=== PATIENT | male | born 1965 | race Caucasian/White ===

== ENCOUNTER 2016-09-28 12:12 | Emergency (ER) | payer OTHER ==
[~2016-09-28] VITALS: Ht 180.3 cm; Wt 63.7 kg
[~2016-09-28 12:12] MED LIST: ARIP441S IM; FAMO40TA4 PO; IRON1CAP17 PO; MUPI15CR TP; NAPR500T3 PO; ONDA4TAB7 PO; PALI78DI IM; PALI9TAB PO; PANT40TA3 PO; POLY17PO5 PO; PRED20TA PO; abilify IJ
[2016-09-28 12:15] VITALS: BP 127/74
[2016-09-28 12:47] LABS: BASO % 1 % (0-3); EOS # 0.2 x10^3/uL (0.0-0.7); EOS % 3 % (0-3); HEMATOCRIT 35.1 % (39.0-53.0); HEMOGLOBIN 9.6 g/dL (13.0-17.5); LYMPH % 18 % (24-48); MEAN CORPUSCULAR HEMOGLOBIN 17 pg (25-35); MEAN CORPUSCULAR HGB CONC 27 g/dL (31-37); MEAN CORPUSCULAR VOLUME 62 fL (79-100); MONO # 0.3 x10^3/uL (0.0-1.1); MONO % 6 % (0-9); NEUT # 4.3 x10^3uL (1.8-7.7); NEUT % 73 % (31-73); PLATELET COUNT 388 x10^3/uL (140-400); RED BLOOD COUNT 5.63 x10^6/uL (4.30-5.70); RED CELL DISTRIBUTION WIDTH 19.6 % (11.5-14.5); WHITE BLOOD COUNT 5.8 x10^3/uL (4.0-11.0)
[2016-09-28 13:24] LABS: PLT ESTIMATE ADEQUATE (ADEQUATE)
[2016-09-28 13:32] LABS: ANISOCYTOSIS MOD; MICROCYTOSIS SLIGHT; POIKILOCYTOSIS SLIGHT
[2016-09-28 13:33] LABS: OVALOCYTES FEW
--- NOTE | 2016-09-28 13:35 | ED.ADGEN ---
Past History Past Medical History: Anxiety, Constipation, Schizophrenia, Other Past Surgical History: Tonsillectomy, Other Additional Past Surgical Histo: duodenal surg Smoking: Non-smoker Alcohol Use: None Drug Use: None Adult General HPI HPI Patient is a 51-year-old male presents emergency department after waking up with blood in his mouth this morning. This was more than 4 hours ago. He has had no repeat bleeding. Patient does not recall coughing, vomiting, or having a bloody nose. 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 Denies any chest pain or dyspnea. Review of Systems Review of Systems Constitutional: Denies fever or chills [] Eyes: Denies change in visual acuity, redness, or eye pain [] HENT: Denies nasal congestion or sore throat [] Respiratory: Denies cough or shortness of breath [] Cardiovascular: No additional information not addressed in HPI [] GI: Denies abdominal pain, nausea, vomiting, bloody stools or diarrhea [] : Denies dysuria or hematuria [] Musculoskeletal: Denies back pain or joint pain [] Integument: Denies rash or skin lesions [] Neurologic: Denies headache, focal weakness or sensory changes [] Endocrine: Denies polyuria or polydipsia [] Allergies Allergies Allergies Coded Allergies Type Severity Reaction Last Updated Verified aspirin Allergy Intermediate bleeding 08/11/16 Yes Physical Exam Physical Exam Constitutional: Well developed, well nourished, no acute distress, non-toxic appearance. [] HENT: Normocephalic, atraumatic, bilateral external ears normal, oropharynx moist, no oral exudates, nose normal. [] Eyes: PERRLA, EOMI, conjunctiva normal, no discharge. [] Neck: Normal range of motion, no tenderness, supple, no stridor. [] Cardiovascular:Heart rate regular rhythm, no murmur [] Lungs & Thorax: Bilateral breath sounds clear to auscultation [] Abdomen: Bowel sounds normal, soft, no tenderness, no masses, no pulsatile masses. [] Skin: Warm, dry, no erythema, no rash. [] Back: No tenderness, no CVA tenderness. [] Extremities: No tenderness, no cyanosis, no clubbing, ROM intact, no edema. [] Neurologic: Alert and oriented X 3, normal motor function, normal sensory function, no focal deficits noted. [] Psychologic: Affect normal, judgement normal, mood normal. [] Current Patient Data Vital Signs Vital Signs Date Time Temp Pulse Resp B/P Pulse Ox O2 Delivery O2 Flow Rate FiO2 09/28/16 12:15 98.2 76 18 99 Room Air Lab Results Laboratory Tests Test 09/28/16 12:28 White Blood Count 5.8x10^3/uL (4.0-11.0) Red Blood Count 5.63x10^6/uL (4.30-5.70) Hemoglobin 9.6g/dL (13.0-17.5) L Hematocrit 35.1% (39.0-53.0) L Mean Corpuscular Volume 62fL (79-100) L Mean Corpuscular Hemoglobin 17pg (25-35) L Mean Corpuscular Hemoglobin Concent 27g/dL (31-37) L Red Cell Distribution Width 19.6% (11.5-14.5) H Platelet Count 388x10^3/uL (140-400) Neutrophils (%) (Auto) 73% (31-73) Lymphocytes (%) (Auto) 18% (24-48) L Monocytes (%) (Auto) 6% (0-9) Eosinophils (%) (Auto) 3% (0-3) Basophils (%) (Auto) 1% (0-3) Neutrophils # (Auto) 4.3x10^3uL (1.8-7.7) Lymphocytes # (Auto) 1.0x10^3/uL (1.0-4.8) Monocytes # (Auto) 0.3x10^3/uL (0.0-1.1) Eosinophils # (Auto) 0.2x10^3/uL (0.0-0.7) Basophils # (Auto) 0.0x10^3/uL (0.0-0.2) Platelet Estimate Adequate (ADEQUATE) EKG EKG [] Radiology/Procedures Radiology/Procedures [] Course & Med Decision Making Course & Med Decision Making Pertinent Labs and Imaging studies reviewed. (See chart for details) Patient shows no signs of bleeding here. His hemoglobin is stable. Patient will be discharged home with supportive care and follow-up instructions. [] Final Impression Final Impression Hematemesis [] Problems: Dragon Disclaimer Dragon Disclaimer This electronic medical record was generated, in whole or in part, using a voice recognition dictation system. RUIZ MCCANN MD Sep 28, 2016 13:35
== END 2016-09-28 13:25 | disposition home or self-care (01) ==
LOC: ER 12:12
DX: K92.0 Hematemesis (principal); I78.0 Hereditary hemorrhagic telangiectasia; F20.9 Schizophrenia, unspecified; F41.9 Anxiety disorder, unspecified; Z88.6 Allergy status to analgesic agent
CPT/HCPCS: 36415; 85008; 85027; 99283

== ENCOUNTER 2016-10-30 11:06 | Emergency (ER) | payer OTHER ==
[~2016-10-30] VITALS: Ht 180.3 cm; Wt 63.7 kg
--- NOTE | 2016-10-30 11:40 | PHYS DOC ---
Past History Past Medical History: Anxiety, Constipation, Schizophrenia, Other Past Surgical History: Tonsillectomy, Other Additional Past Surgical Histo: duodenal surg Smoking: Non-smoker Alcohol Use: None Drug Use: None Adult General Chief Complaint Chief Complaint: LOWER EXT PAIN HPI HPI 51-year-old gentleman presenting to the emergency department with pain in his inner right thigh. He describes the pain is sharp moderate nonradiating and without alleviating factors. He reports a history of a "DVT". However upon the patient's medical chart he had a superficial saphenous vein thrombosis which is not a deep vein thrombosis. Ultrasound was performed in 2013. 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 He otherwise denies any symptoms. Onset 24 hours. Location right leg. Duration constant. Review of systems is negative for chest pain nausea vomiting fevers chills or abdominal pain. All other review of systems is negative unless otherwise noted in history of present illness. Review of Systems Review of Systems SEE ABOVE. Allergies Allergies Allergies Coded Allergies Type Severity Reaction Last Updated Verified aspirin Allergy Intermediate bleeding 10/30/16 Yes Physical Exam Physical Exam Constitutional: Well developed, well nourished, no acute distress, non-toxic appearance. HENT: Normocephalic, atraumatic, bilateral external ears normal, oropharynx moist, no oral exudates, nose normal. [] Eyes: PERRLA, EOMI, conjunctiva normal, no discharge. Neck: Normal range of motion, no tenderness, supple, no stridor. Cardiovascular:Heart rate regular rhythm, no murmur Lungs & Thorax: Bilateral breath sounds clear to auscultation [] Abdomen: Bowel sounds normal, soft, no tenderness, no masses, no pulsatile masses. Skin: Warm, dry, no erythema, no rash. [] Back: No tenderness, no CVA tenderness. Extremities: The patient's right lower extremity is warm and well perfused with a palpable pulse and 2 second cap refill. Normal neurovascular status present. The patient does have tenderness along the venous system. There is no swelling erythema of the extremity. It is similar in size to the other extremity. The remainder of the extremities are nontender, atraumatic and with normal range of motion. Neurologic: Alert and oriented X 3, normal motor function, normal sensory function, no focal deficits noted. [] Psychologic: Affect normal, judgement normal, mood normal. Current Patient Data Vital Signs Vital Signs Date Time Temp Pulse Resp B/P Pulse Ox O2 Delivery O2 Flow Rate FiO2 10/30/16 11:21 97.6 86 18 100 Room Air EKG EKG [] Radiology/Procedures Radiology/Procedures [] Course & Med Decision Making Course & Med Decision Making Pertinent Labs and Imaging studies reviewed. (See chart for details) [] 51-year-old male presenting to the emergency department with right-sided leg pain. Vital signs unremarkable. Tenderness of the venous system so ultrasound was obtained. Negative for deep vein thrombosis. Otherwise the patient is clinically stable. The patient was then discharged home in stable condition to follow up with their primary care physician over the next 2-3 days. They were to return if there symptoms worsened or if they were concerned for any reason. [id number] discharge instructions and return precautions were given. Patient' s questions were answered to their satisfaction. Patient is comfortable plan. Dragon Disclaimer Dragon Disclaimer This chart was dictated in whole or in part using Voice Recognition software in a busy, high-work load, and often noisy Emergency Department environment. It may contain unintended and wholly unrecognized errors or omissions. Departure Departure: Impression: Primary Impression: Right leg pain Disposition: 01 HOME, SELF-CARE Condition: STABLE Referrals: LEEANN SAHA MD (PCP) Additional Instructions: Thank you for allowing us to participate in your care today. Followup with your primary care physician in 3 days if your symptoms do not improve. If you do not have a primary care provider you can ask for a list of our primary care providers. Return to the emergency department you have any new or concerning findings. This should be evaluated by the primary care physician and any necessary consulting services for continued management within a few days after discharge. Return to emergency room if you have any new or concerning symptoms including but not limited to fever, chills, nausea, vomiting, intractable pain, any new rashes, chest pain, shortness of air, uncontrolled bleeding, difficulty breathing, and/or vision loss. You may have been prescribed medication that can change in your level of thinking and ability to operate machinery. These medications include hydrocodone and Ativan. Also, Benadryl has been known to do this as well. Be sure to check with your pharmacist and ask if the medications you've prescribed can affect your level of consciousness. I recommend not operating heavy machinery or driving while on medication such as these. ERIS CABRERA MD Oct 30, 2016 11:40
--- NOTE | 2016-10-30 12:52 | RAD ---
Right lower extremity venous Doppler ultrasound History: Right lower extremity pain, previous history of deep venous thrombosis. Comparison: Bilateral lower extremity venous Doppler 04/15/2012. Procedure: Color Doppler, spectral Doppler, and grayscale images are obtained with and without compression in the area of the common femoral vein, superficial femoral vein - femoral vein junction, main femoral vein (superficial femoral vein) and popliteal vein. Veins of the proximal calf are also imaged. Findings: There is normal duplex flow, color flow and compressibility of all visualized vein segments. No evidence of deep venous thrombosis is present. Impression: No evidence of right lower extremity deep venous thrombosis.
== END 2016-10-30 13:14 | disposition home or self-care (01) ==
LOC: ER 11:06
DX: M79.651 Pain in right thigh (principal); M79.604 Pain in right leg; F20.9 Schizophrenia, unspecified; Z86.718 Personal history of other venous thrombosis and embolism; Z88.6 Allergy status to analgesic agent
CPT/HCPCS: 93971; 99284-25

== ENCOUNTER 2016-11-06 16:22 | Emergency (ER) | payer OTHER ==
[~2016-11-06] VITALS: Ht 180.3 cm; Wt 63.7 kg
--- NOTE | 2016-11-06 16:38 | ED.ADGEN ---
Past History Past Medical History: Schizophrenia, Other Past Surgical History: Tonsillectomy Additional Past Surgical Histo: duodenal surg Smoking: Non-smoker Alcohol Use: None Drug Use: None Adult General Chief Complaint Chief Complaint Abdominal pain HPI HPI Patient is a 51 year old male who presents with epigastric/chest pain. He states he was eating a ham sandwich at 3:00, felt like his food got stuck and he started having pain. States his pain did resolve but now has returned. He denies any shortness of breath fevers chills nausea or vomiting associated with this. He states he got distracted when he was eating his food because the voices in his head. He states he had surgery on his stomach 5-7 years ago. Review of Systems Review of Systems Constitutional: Denies fever or chills [] Eyes: Denies change in visual acuity, redness, or eye pain [] HENT: Denies nasal congestion or sore throat [] Respiratory: Denies cough or shortness of breath [] Cardiovascular: No additional information not addressed in HPI [] GI: Denies nausea, vomiting, bloody stools or diarrhea , positive for abdominal pain, : Denies dysuria or hematuria [] Musculoskeletal: Denies back pain or joint pain [] Integument: Denies rash or skin lesions [] Neurologic: Denies headache, focal weakness or sensory changes [] Endocrine: Denies polyuria or polydipsia [] Current Medications Current Medications Current Medications Medications (Trade) Dose Ordered Sig/Tomasz Start Time Stop Time Status Last Admin Dose Admin Multi-Ingredient Mouthwash/Gargle (Gi Cocktail) 20 ml 1X ONCE 11/06/16 16:45 11/06/16 16:46 DC 11/06/16 16:43 20 ML Allergies Allergies Allergies Coded Allergies Type Severity Reaction Last Updated Verified aspirin Allergy Intermediate bleeding 10/30/16 Yes Physical Exam Physical Exam Constitutional: Well developed, well nourished, no acute distress, non-toxic appearance. [] HENT: Normocephalic, atraumatic, bilateral external ears normal, oropharynx moist, no oral exudates, nose normal. [] Eyes: PERRLA, EOMI, conjunctiva normal, no discharge. [] Neck: Normal range of motion, no tenderness, supple, no stridor. [] Cardiovascular:Heart rate regular rhythm, no murmur [] Lungs & Thorax: Bilateral breath sounds clear to auscultation [] Abdomen: High-pitched bowel sounds, soft, mild tender to palpation epigastric area, no rebound or guarding, no masses, no pulsatile masses. [] Skin: Warm, dry, no erythema, no rash. [] Back: No tenderness, no CVA tenderness. [] Extremities: No tenderness, no cyanosis, no clubbing, ROM intact, no edema. [] Neurologic: Alert and oriented X 3, normal motor function, normal sensory function, no focal deficits noted. [] Psychologic: Affect normal, judgement normal, mood normal. [] Current Patient Data Vital Signs Vital Signs Date Time Temp Pulse Resp B/P Pulse Ox O2 Delivery O2 Flow Rate FiO2 11/06/16 16:31 97.9 83 20 95 Room Air EKG EKG EKG shows normal sinus rhythm with rate of [address] elevations or T -wave inversions, normal axis, QTC 386 ms, as interpreted by me. Radiology/Procedures Radiology/[place] [address] IMAGING REPORT Signed PATIENT: BOLIVAR JEFF ACCOUNT: [id number] : 1965 LOCATION: ER AGE: 51 SEX: M EXAM STATUS: REG ER ORD. PHYSICIAN: MARY HUDSON MD REASON: abd pain PROCEDURE: ACUTE ABDOMEN SERIES Acute abdomen series with chest, 3 views, 11/06/2016: History: Abdominal pain There is a moderate amount gas in large and small bowel. The gas extends down to the left level the rectum without evidence of obstruction. There is also retained food and fluid in the stomach. The findings may reflect a mild ileus. No free air is seen in the abdomen. There is no evidence of organomegaly. Lower pelvic calcifications are probably phleboliths. The heart size and pulmonary vascularity are normal. No pulmonary infiltrates are seen. A small right basilar pulmonary nodule is unchanged since 02/20/2016. There is no evidence of pleural fluid. IMPRESSION: 1. Probable mild ileus. 2. 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 DICTATED AND SIGNED BY: CHANDANA SUN MD DATE: 11/06/16 [id number] CC: MARY HUDSON MD; LEEANN SAHA MD ~ Course & Med Decision Making Course & Med Decision Making Pertinent Labs and Imaging studies reviewed. (See chart for details) Acute abdominal series suggests a probable mild ileus. He does have high- pitched bowel sounds in still complaining about discomfort. CT abdomen pelvis has been ordered, IV fluids patient is being checked out to Dr. Gupta for final disposition. Final Impression Final Impression Abdominal pain Problems: Dragon Disclaimer Dragon Disclaimer This electronic medical record was generated, in whole or in part, using a voice recognition dictation system. MARY HUDSON MD November 06, 2016 16:38
[2016-11-06] MEDS ORDERED: LIDO:MAALOX 1:1 20 ML SINGLE DOSE PO ONE (16:45)
--- NOTE | 2016-11-06 17:01 | RAD ---
Acute abdomen series with chest, 3 views, 11/06/2016: History: Abdominal pain There is a moderate amount gas in large and small bowel. The gas extends down to the left level the rectum without evidence of obstruction. There is also retained food and fluid in the stomach. The findings may reflect a mild ileus. No free air is seen in the abdomen. There is no evidence of organomegaly. Lower pelvic calcifications are probably phleboliths. The heart size and pulmonary vascularity are normal. No pulmonary infiltrates are seen. A small right basilar pulmonary nodule is unchanged since 02/20/2016. There is no evidence of pleural fluid. IMPRESSION: 1. Probable mild ileus. 2. 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
[2016-11-06] MEDS ORDERED: IOHEXOL 240 MG/ML 50ML VIAL. ONE (17:19)
--- NOTE | 2016-11-06 17:21 | EKG ---
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
[2016-11-06] MEDS ORDERED: IV NORMAL SALINE 1,000ML 1,000 ML IV ONE (17:30)
[2016-11-06] MEDS ORDERED: IOHEXOL 300 MG/ML 75 ML VIAL. IV ONE (17:45)
[2016-11-06 17:57] LABS: BASO # 0.1 x10^3/uL (0.0-0.2); BASO % 1 % (0-3); EOS # 0.1 x10^3/uL (0.0-0.7); EOS % 1 % (0-3); HEMATOCRIT 33.2 % (39.0-53.0); HEMOGLOBIN 9.4 g/dL (13.0-17.5); LYMPH # 1.1 x10^3/uL (1.0-4.8); LYMPH % 17 % (24-48); MEAN CORPUSCULAR HEMOGLOBIN 17 pg (25-35); MEAN CORPUSCULAR HGB CONC 28 g/dL (31-37); MEAN CORPUSCULAR VOLUME 60 fL (79-100); MONO # 0.3 x10^3/uL (0.0-1.1); MONO % 5 % (0-9); NEUT # 4.6 x10^3uL (1.8-7.7); NEUT % 75 % (31-73); PLATELET COUNT 444 x10^3/uL (140-400); RED BLOOD COUNT 5.53 x10^6/uL (4.30-5.70); RED CELL DISTRIBUTION WIDTH 19.9 % (11.5-14.5); WHITE BLOOD COUNT 6.1 x10^3/uL (4.0-11.0)
[2016-11-06 18:01] VITALS: BP 125/73
[2016-11-06 18:14] LABS: ALBUMIN 4.3 g/dL (3.4-5.0); CREATININE 1.2 mg/dL (0.7-1.3); DIRECT BILIRUBIN 0.2 mg/dL (0.0-0.2); GFR 64.4; POTASSIUM 4.1 mmol/L (3.5-5.1); TOTAL BILIRUBIN 0.5 mg/dL (0.2-1.0)
--- NOTE | 2016-11-06 19:23 | RAD ---
PQRS STATEMENT One or more of the following individualized dose reduction techniques were utilized for this study: 1.Automated exposure control. 2.Adjustment of the mA and/orkVaccording to patient size. 3.Use of iterative reconstruction technique. Indication:EPIGASTRIC PAIN, DISTENTION, H/O: DUODENAL SX, HERNIA REPAIR
ORAL AND IV CONTRAST, 75 ML OMNI 300, prior ct abd/pel sent Reason: abdominal pain / Spl. Instructions: / History: Technique: multiple contiguous axial images were obtained through the abdomen and pelvis after intravenous administration of iodinated contrast. Coronal and sagittal reformations were created. Findings: There is a moderate amount of gastric contents. Again noted is a 1.1 centimeter nodule in the right lung base which was seen on a previous CT from January 06, 2016. The liver is normal in size. There is a nonenhancing presumed cyst in the inferior portion of the right lobe. This has increased in size when compared to the exam from 11/19/2014 now measuring 1 centimeter compared with 9 millimeters. This is still favored to be benign. The gallbladder is nondistended. The pancreas is unremarkable. The spleen and adrenal glands are within normal limits. The kidneys demonstrate no hydronephrosis or mass. The abdominal aorta is normal in caliber. There is no ascites or adenopathy. The appendix is normal. The bowel loops are normal in caliber. The urinary bladder is within normal limits. No destructive osseous lesion is identified. There is enlargement of the seminal vesicles. Impression: No ascites or inflammatory mass. Moderate amount of retained gastric contents. Electronically signed by: Maximilian Patel (November 06, 2016 19:22:22)
[2016-11-06 19:36] LABS: PLT ESTIMATE INCREASED (ADEQUATE)
[2016-11-06 19:37] LABS: ANISOCYTOSIS MOD; HYPOCHROMIA MOD; MICROCYTOSIS SLIGHT; OVALOCYTES MOD; POLYCHROMASIA SLIGHT
[2016-11-06] MEDS ORDERED: SIME80TA14 PO (19:39)
== END 2016-11-06 19:55 | disposition home or self-care (01) ==
LOC: ER 16:22
DX: R10.13 Epigastric pain (principal); F20.9 Schizophrenia, unspecified; Z88.6 Allergy status to analgesic agent
CPT/HCPCS: 36415; 74022; 74177; 80048; 80076; 82553; 83690; 84484; 85008; 85027; 93005; 96360; 99285; Q9967; J7030

== ENCOUNTER 2016-12-11 16:21 | Emergency (ER) | payer OTHER ==
[~2016-12-11] VITALS: Ht 180.3 cm; Wt 63.7 kg
[~2016-12-11 16:21] MED LIST changes: +SIME80TA14 PO
[2016-12-11] MEDS ORDERED: IV NORMAL SALINE 1,000ML 1,000 ML IV ONE (16:45)
[2016-12-11 17:56] LABS: ALBUMIN 4.7 g/dL (3.4-5.0); ALBUMIN/GLOBULIN RATIO 1.3 (1.0-1.7); CALCIUM 8.9 mg/dL (8.5-10.1); CREATININE 1.2 mg/dL (0.7-1.3); GFR 64.4; POTASSIUM 4.8 mmol/L (3.5-5.1); TOTAL BILIRUBIN 1.1 mg/dL (0.2-1.0); TOTAL PROTEIN 8.3 g/dL (6.4-8.2)
--- NOTE | 2016-12-11 18:00 | PHYS DOC ---
Past History Past Medical History: Schizophrenia, Other Past Surgical History: Tonsillectomy Additional Past Surgical Histo: duodenal surg Smoking: Non-smoker Alcohol Use: None Drug Use: None Adult General Chief Complaint Chief Complaint: DEHYDRATION HPI HPI This 51-year-old man with a history of schizophrenia presents with a history of having been hearing voices saying that he should not eat and they've been telling him not to eat for weeks. The patient did have it did eat and had juice when he got here. He really denies any other problem at the present time he was sent [facility] for evaluation and make sure he was medically stable Review of Systems Review of Systems Constitutional: Denies fever or chills [] Eyes: Denies change in visual acuity, redness, or eye pain [] HENT: Denies nasal congestion or sore throat [] Respiratory: Denies cough or shortness of breath [] Cardiovascular: No additional information not addressed in HPI [] GI: Denies abdominal pain, nausea, vomiting, bloody stools or diarrhea [] : Denies dysuria or hematuria [] Musculoskeletal: Denies back pain or joint pain [] Integument: Denies rash or skin lesions [] Neurologic: Denies headache, focal weakness or sensory changes [] Endocrine: Denies polyuria or polydipsia [] Current Medications Current Medications Current Medications Medications (Trade) Dose Ordered Sig/Tomasz Start Time Stop Time Status Last Admin Dose Admin Sodium Chloride 1,000 ml @ 1,000 mls/hr 1X ONCE 12/11/16 16:45 12/11/16 17:44 DC 12/11/16 16:45 1,000 MLS/HR Allergies Allergies Allergies Coded Allergies Type Severity Reaction Last Updated Verified aspirin Allergy Intermediate bleeding 10/30/16 Yes Physical Exam Physical Exam Constitutional: Well developed, well nourished, no acute distress, non-toxic appearance. [] HENT: Normocephalic, atraumatic, bilateral external ears normal, oropharynx moist, no oral exudates, nose normal. Mucous membranes are moist Eyes: PERRLA, EOMI, conjunctiva normal, no discharge. [] Neck: Normal range of motion, no tenderness, supple, no stridor. [] Cardiovascular:Heart rate regular rhythm, no murmur [] Lungs & Thorax: Bilateral breath sounds clear to auscultation [] Abdomen: Bowel sounds normal, soft, no tenderness, no masses, no pulsatile masses. [] Skin: Warm, dry, no erythema, no rash. [] Back: No tenderness, no CVA tenderness. [] Extremities: No tenderness, no cyanosis, no clubbing, ROM intact, no edema. [] Neurologic: Alert and oriented X 3, normal motor function, normal sensory function, no focal deficits noted. [] Psychologic: Affect normal, judgement normal, mood normal. [] Current Patient Data Vital Signs Vital Signs Date Time Temp Pulse Resp B/P (MAP) Pulse Ox O2 Delivery O2 Flow Rate FiO2 12/11/16 17:37 98.2 88 126/65 (85) 100 12/11/16 16:34 20 Lab Results Laboratory Tests Test 12/11/16 17:23 Sodium Level 134 mmol/L (136-145) L Potassium Level 4.8 mmol/L (3.5-5.1) Chloride Level 97 mmol/L (98-107) L Carbon Dioxide Level 22 mmol/L (21-32) Anion Gap 15 (6-14) H Blood Urea Nitrogen 19 mg/dL (8-26) Creatinine 1.2 mg/dL (0.7-1.3) Estimated GFR (Cockcroft-Gault) 64.4 BUN/Creatinine Ratio 16 (6-20) Glucose Level 62 mg/dL (70-99) L Calcium Level 8.9 mg/dL (8.5-10.1) Total Bilirubin 1.1 mg/dL (0.2-1.0) H Aspartate Amino Transferase (AST) 18 U/L (15-37) Alanine Aminotransferase (ALT) 17 U/L (16-63) Alkaline Phosphatase 127 U/L (46-116) H Total Protein 8.3 g/dL (6.4-8.2) H Albumin 4.7 g/dL (3.4-5.0) Albumin/Globulin Ratio 1.3 (1.0-1.7) EKG EKG [] Radiology/Procedures Radiology/Procedures [] Impressions: Schizophrenia Course & Med Decision Making Course & Med Decision Making Pertinent Labs and Imaging studies reviewed. (See chart for details) Reviewed labs that returned so far and reviewed Dr. Raymundo's note patient is well hydrated by physical exam findings and vital signs as well as the CMP is it 's been returned. I spoke at length with the critical access guidance access counselor after medical clearance of this. The patient apparently this ends concert seen this patient earlier today and recommended inpatient evaluation for his acute schizophrenic break. He is comfortable and stable patient is compliant with requests an evaluation. Consume food and drink while here in the emergency department and is awaiting bed placement. Time is 7:26 PM [] Dr. GOMEZ accepted patient approximately 9:43 PM [facility] to their psychiatric floor for inpatient management of his acute psychosis secondary to schizophrenia. Impression schizophrenia with psychotic break disposition transfer to psychiatric facility that can aid him and treatment of his issue. Dragon Disclaimer Dragon Disclaimer This chart was dictated in whole or in part using Voice Recognition software in a busy, high-work load, and often noisy Emergency Department environment. It may contain unintended and wholly unrecognized errors or omissions. Departure Departure: Impression: Primary Impression: Auditory hallucinations Additional Impression: Schizophrenia Disposition: 65 XFER TO PSYCH HOSP/UNIT Condition: GUARDED Referrals: LEEANN SAHA MD (PCP) Problem Qualifiers KINSEY JANE MD Dec 11, 2016 18:00 BEKAH CHAPA MD Dec 11, 2016 19:26
[2016-12-11 19:24] LABS: BILIRUBIN,URINE NEG (NEG); CLARITY,URINE CLEAR; COLOR,URINE YELLOW; GLUCOSE,URINE NEG (NEG); NITRITE,URINE NEG (NEG); RBC,URINE OCC /HPF (0-2); UROBILINOGEN,URINE 1 mg/dL (0.2 mg/dL)
[2016-12-11 19:25] LABS: BACTERIA,URINE 0 /HPF (0-FEW); HYALINE CASTS, URINE FEW /HPF; SQUAMOUS EPITHELIAL CELL,UR FEW /LPF; WBC,URINE OCC /HPF (0-4)
[2016-12-11 19:28] LABS: HEMATOCRIT 34.3 % (39.0-53.0); HEMOGLOBIN 9.9 g/dL (13.0-17.5); MEAN CORPUSCULAR HEMOGLOBIN 17 pg (25-35); MEAN CORPUSCULAR HGB CONC 29 g/dL (31-37); MEAN CORPUSCULAR VOLUME 59 fL (79-100); PLATELET COUNT 460 x10^3/uL (140-400); RED BLOOD COUNT 5.85 x10^6/uL (4.30-5.70); RED CELL DISTRIBUTION WIDTH 19.7 % (11.5-14.5); WHITE BLOOD COUNT 5.4 x10^3/uL (4.0-11.0)
[2016-12-11 19:38] LABS: % BANDS 1 % (0-9); % LYMPHS 12 % (24-48); % MONOS 2 % (0-10); % SEGS 85 % (35-66)
[2016-12-11 19:39] LABS: HYPOCHROMIA MOD; OVALOCYTES FEW; PLT ESTIMATE INCREASED (ADEQUATE)
[2016-12-11 19:40] LABS: ANISOCYTOSIS SLIGHT; MICROCYTOSIS MOD
--- NOTE | 2016-12-11 20:34 | ACF ---
Admission Criteria Forms PSYCHIATRIC DISORDERS Clinical Indications for Inpatient Care (Place 'X' for any and all applicable criteria): Ongoing inpatient care may be needed for ANY ONE of the following(1)(2)(3)(4)(6) (7)(8): [ ]I. Danger to self or others not manageable at lower level of care. [ ]II. Grave disability (eg, inability to perform self care necessary at lower level of care) [ ]III. Agitation or inappropriate behavior interfering with care for primary condition (eg, attempting to discontinue lines or drains prematurely, unable to cooperate with respiratory care) [X]IV. Severe disability or disorder indicated by ALL of the following: [X]a) Severe behavioral health disorder-related symptoms or condition indicated by ANY ONE of the following: [X]i) Severe problem with cognition, memory, judgment, or impulse control [ ]ii) Severe clinical manifestations (eg, hallucinations, delusions, other acute psychotic symptoms, avila, extreme agitation or anxiety) [ ]b) Patient management at lower level of care is not feasible until acute intervention or modification is initiated. Extended stay beyond goal length of stay for the primary condition may be indicated when ANY ONE of the following is present: (1)(2)(3)(4): [ ]a) Patient is a danger to self or others and not manageable at lower level of care. [ ]b) Behavior crisis management, including physical or chemical restraints, is required and is not available at a lower level of care. [ ]c) Behavioral symptoms (e.g., agitation, somnolence, inappropriate behavior) are present, and are not manageable at a lower level of care. [ ]d) Patient cannot understand follow-up treatment and crisis plan. [ ]e) Provider and supports are not sufficiently available at lower level of care. [ ]f) Patient cannot participate (e.g., verify absence of plan for harm) and is in needed of monitoring. The original [facility] [employer] content created by [facility] has been revised. The portions of the content which have been revised are identified through the use of italic text or in bold, and [facility] has neither reviewed nor approved the modified material. All other unmodified content is copyright [facility]. Please see references footnoted in the original [facility] edition 2016 Admission Criteria Met?: Yes BETSEY MCGARRY Dec 11, 2016 20:34
[2016-12-11 22:40] VITALS: BP 111/65
== END 2016-12-11 22:40 ==
LOC: ER 16:21
DX: R44.0 Auditory hallucinations (principal); F20.9 Schizophrenia, unspecified; Z88.6 Allergy status to analgesic agent
CPT/HCPCS: 36415; 80053; 81001; 82947; 85007; 85027; 96360; 99285-25; J7030

== ENCOUNTER → 2017-05-21 | Outpatient (CLI) | payer OTHER ==
[~2017-05-21] MED LIST changes: -NAPR500T3 PO; +NAPR500T4 PO
[2017-05-21 11:55] LABS: ALBUMIN 4.1 g/dL (3.4-5.0); ALBUMIN/GLOBULIN RATIO 1.1 (1.0-1.7); CALCIUM 8.9 mg/dL (8.5-10.1); CREATININE 1.1 mg/dL (0.7-1.3); GFR 70.9; POTASSIUM 4.1 mmol/L (3.5-5.1); TOTAL BILIRUBIN 0.6 mg/dL (0.2-1.0); TOTAL PROTEIN 7.9 g/dL (6.4-8.2)
[2017-05-21 13:01] LABS: HEMATOCRIT 31.3 % (39.0-53.0); HEMOGLOBIN 8.9 g/dL (13.0-17.5); RED BLOOD COUNT 5.34 x10^6/uL (4.30-5.70); WHITE BLOOD COUNT 4.9 x10^3/uL (4.0-11.0)
[2017-05-21 13:02] LABS: ANISOCYTOSIS MOD; BASO % 1 % (0-3); EOS # 0.1 x10^3/uL (0.0-0.7); EOS % 3 % (0-3); HYPOCHROMIA MARKED; LYMPH # 1.3 x10^3/uL (1.0-4.8); LYMPH % 27 % (24-48); MEAN CORPUSCULAR HEMOGLOBIN 17 pg (25-35); MEAN CORPUSCULAR HGB CONC 29 g/dL (31-37); MEAN CORPUSCULAR VOLUME 59 fL (79-100); MONO # 0.4 x10^3/uL (0.0-1.1); MONO % 8 % (0-9); NEUT % 61 % (31-73); PLATELET COUNT 415 x10^3/uL (140-400); PLT ESTIMATE ADEQUATE (ADEQUATE); POLYCHROMASIA SLIGHT; RED CELL DISTRIBUTION WIDTH 20.4 % (11.5-14.5)
[2017-05-21 13:03] LABS: OVALOCYTES FEW; SCHISTOCYTES FEW; TEAR DROP CELLS FEW
== END | disposition home or self-care (01) ==
LOC: LAB 10:17
PROVIDERS: ATTEND Clinical Nurse Specialist Psychiatric/Mental Health, Adult
DX: Z51.81 Encounter for therapeutic drug level monitoring (principal); Z79.899 Other long term (current) drug therapy
CPT/HCPCS: 36415; 80053; 80061; 84146; 85025

== ENCOUNTER 2017-08-14 11:10 | Inpatient (IN) | payer OTHER ==
[~2017-08-14] VITALS: Ht 177.8 cm; Wt 61.3 kg
[~2017-08-14 11:10] MED LIST changes: +NAPR-514 PO; -NAPR500T4 PO
[2017-08-14 11:46] LABS: BACTERIA,URINE 0 /HPF (0-FEW); BILIRUBIN,URINE NEG (NEG); CLARITY,URINE CLEAR; COLOR,URINE YELLOW; GLUCOSE,URINE 100 mg/dL (NEG); NITRITE,URINE NEG (NEG); RBC,URINE 0 /HPF (0-2); UROBILINOGEN,URINE 0.2 mg/dL (0.2 mg/dL); WBC,URINE RARE /HPF (0-4)
[2017-08-14 12:05] LABS: BASO % 0 % (0-3); EOS # 0.1 x10^3/uL (0.0-0.7); EOS % 2 % (0-3); HEMATOCRIT 30.1 % (39.0-53.0); HEMOGLOBIN 8.2 g/dL (13.0-17.5); LYMPH % 19 % (24-48); MEAN CORPUSCULAR HEMOGLOBIN 16 pg (25-35); MEAN CORPUSCULAR HGB CONC 27 g/dL (31-37); MEAN CORPUSCULAR VOLUME 58 fL (79-100); MONO # 0.2 x10^3/uL (0.0-1.1); MONO % 3 % (0-9); NEUT # 4.2 x10^3uL (1.8-7.7); NEUT % 76 % (31-73); PLATELET COUNT 446 x10^3/uL (140-400); RED BLOOD COUNT 5.19 x10^6/uL (4.30-5.70); RED CELL DISTRIBUTION WIDTH 21.5 % (11.5-14.5); WHITE BLOOD COUNT 5.6 x10^3/uL (4.0-11.0)
[2017-08-14 12:15] LABS: ALBUMIN 3.8 g/dL (3.4-5.0); CALCIUM 8.5 mg/dL (8.5-10.1); GFR 79.1; POTASSIUM 4.2 mmol/L (3.5-5.1); TOTAL BILIRUBIN 0.6 mg/dL (0.2-1.0); TOTAL PROTEIN 7.5 g/dL (6.4-8.2)
--- NOTE | 2017-08-14 12:22 | RAD ---
Acute abdomen series with chest, 3 views, 08/14/2017: History: Bilateral flank pain There is a moderate amount of gas in large and small bowel with mild gaseous distention of some bowel loops. No free air is present in the abdomen. There is no evidence of organomegaly. Tiny lower pelvic calcifications are probably phleboliths. The heart size is normal. A small nodule is again noted in the right lung base. 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 No acute infiltrate is seen. There is no evidence of pleural fluid. IMPRESSION: Increased gas in large and small bowel most compatible with a generalized ileus.
--- NOTE | 2017-08-14 12:27 | PHYS DOC ---
Past History Past Medical History: Anemia, Constipation, Other Past Surgical History: No Surgical History Additional Past Surgical Histo: duodenal surg Smoking: Non-smoker Alcohol Use: None Drug Use: None Adult General Chief Complaint Chief Complaint: FLANK PAIN HPI HPI Patient is a pleasant 52-year-old male with a known history of psychiatric disorder and a flat affect who presents with abdominal pain and flank pain that began yesterday. He said the pain is worse when he walks around it is generalized with no radiation to the upper back it is radiating to the lower abdomen. Described as dull and achy is uncomfortable but is able to walk without issue. He denies any nausea, vomiting, diarrhea, constipation. He is not eating anything for greater than 24 hours. Patient denies any UTI symptoms, penile discharge or other symptoms of fevers chills joint pain or rash. Patient denies any direct trauma denies taking any medications to treat his symptoms. Review of Systems Review of Systems Constitutional: Denies fever or chills [] Eyes: Denies change in visual acuity, redness, or eye pain [] HENT: Denies nasal congestion or sore throat [] Respiratory: Denies cough or shortness of breath [] Cardiovascular: No additional information not addressed in HPI [] GI: Complaining of abdominal pain with mild nausea but no vomiting diarrhea cost patient or doing issues : Denies dysuria or hematuria [] Musculoskeletal: Planes of lower back pain Integument: Denies rash or skin lesions [] Neurologic: Denies headache, focal weakness or sensory changes [] Endocrine: Denies polyuria or polydipsia [] All other systems were reviewed and found to be within normal limits, except as documented in this note. Allergies Allergies Allergies Coded Allergies Type Severity Reaction Last Updated Verified aspirin Allergy Intermediate bleeding 10/30/16 Yes Physical Exam Physical Exam Constitutional: Well developed, well nourished, no acute distress, non-toxic appearance. [] HENT: Normocephalic, atraumatic, bilateral external ears normal, oropharynx moist, no oral exudates, nose normal. [] Eyes: PERRLA, EOMI, conjunctiva normal, no discharge. [] Neck: Normal range of motion, no tenderness, supple, no stridor. [] Cardiovascular:Heart rate regular rhythm, no murmur [] Lungs & Thorax: Bilateral breath sounds clear to auscultation [] Abdomen: Bowel sounds normal, soft, no tenderness, no masses, no pulsatile masses. [] Skin: Warm, dry, no erythema, no rash. [] Back: No tenderness, no CVA tenderness. [] Extremities: No tenderness, no cyanosis, no clubbing, ROM intact, no edema. [] Neurologic: Alert and oriented X 3, normal motor function, normal sensory function, no focal deficits noted. [] Psychologic: Affect normal, judgement normal, mood normal. [] Current Patient Data Vital Signs Vital Signs Date Time Temp Pulse Resp B/P (MAP) Pulse Ox O2 Delivery O2 Flow Rate FiO2 08/14/17 11:15 97.5 62 20 100 Room Air Lab Results Laboratory Tests Test 08/14/17 11:30 08/14/17 11:49 Urine Collection Type Unknown Urine Color Yellow Urine Clarity Clear Urine pH 5.5 Urine Specific Hooper 1.025 Urine Protein Neg (NEG-TRACE) Urine Glucose (UA) 100 mg/dL (NEG) Urine Ketones (Stick) Neg mg/dL (NEG) Urine Blood Neg (NEG) Urine Nitrite Neg (NEG) Urine Bilirubin Neg (NEG) Urine Urobilinogen Dipstick 0.2 mg/dL (0.2 mg/dL) Urine Leukocyte Esterase Neg (NEG) Urine RBC 0 /HPF (0-2) Urine WBC Rare /HPF (0-4) Urine Squamous Epithelial Cells None /LPF Urine Bacteria 0 /HPF (0-FEW) Urine Mucus Marked /LPF White Blood Count 5.6 x10^3/uL (4.0-11.0) Red Blood Count 5.19 x10^6/uL (4.30-5.70) Hemoglobin 8.2 g/dL (13.0-17.5) L Hematocrit 30.1 % (39.0-53.0) L Mean Corpuscular Volume 58 fL (79-100) L Mean Corpuscular Hemoglobin 16 pg (25-35) L Mean Corpuscular Hemoglobin Concent 27 g/dL (31-37) L Red Cell Distribution Width 21.5 % (11.5-14.5) H Platelet Count 446 x10^3/uL (140-400) H Neutrophils (%) (Auto) 76 % (31-73) H Lymphocytes (%) (Auto) 19 % (24-48) L Monocytes (%) (Auto) 3 % (0-9) Eosinophils (%) (Auto) 2 % (0-3) Basophils (%) (Auto) 0 % (0-3) Neutrophils # (Auto) 4.2 x10^3uL (1.8-7.7) Lymphocytes # (Auto) 1.0 x10^3/uL (1.0-4.8) Monocytes # (Auto) 0.2 x10^3/uL (0.0-1.1) Eosinophils # (Auto) 0.1 x10^3/uL (0.0-0.7) Basophils # (Auto) 0.0 x10^3/uL (0.0-0.2) Platelet Estimate Pending Sodium Level 138 mmol/L (136-145) Potassium Level 4.2 mmol/L (3.5-5.1) Chloride Level 103 mmol/L (98-107) Carbon Dioxide Level 26 mmol/L (21-32) Anion Gap 9 (6-14) Blood Urea Nitrogen 17 mg/dL (8-26) Creatinine 1.0 mg/dL (0.7-1.3) Estimated GFR (Cockcroft-Gault) 79.1 BUN/Creatinine Ratio 17 (6-20) Glucose Level 82 mg/dL (70-99) Calcium Level 8.5 mg/dL (8.5-10.1) Total Bilirubin 0.6 mg/dL (0.2-1.0) Aspartate Amino Transferase (AST) 13 U/L (15-37) L Alanine Aminotransferase (ALT) 15 U/L (16-63) L Alkaline Phosphatase 93 U/L (46-116) Total Protein 7.5 g/dL (6.4-8.2) Albumin 3.8 g/dL (3.4-5.0) Albumin/Globulin Ratio 1.0 (1.0-1.7) EKG EKG [] Radiology/Procedures Radiology/Procedures [] [address] [address] IMAGING REPORT Signed PATIENT: BOLIVAR JEFF ACCOUNT: [id number] : 1965 LOCATION: ER AGE: 52 SEX: M EXAM STATUS: REG ER ORD. PHYSICIAN: BEKAH CHAPA MD REASON: bilat. flank pain PROCEDURE: ACUTE ABDOMEN SERIES Acute abdomen series with chest, 3 views, 08/14/2017: History: Bilateral flank pain There is a moderate amount of gas in large and small bowel with mild gaseous distention of some bowel loops. No free air is present in the abdomen. There is no evidence of organomegaly. Tiny lower pelvic calcifications are probably phleboliths. The heart size is normal. A small nodule is again noted in the right lung base. 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 No acute infiltrate is seen. There is no evidence of pleural fluid. IMPRESSION: Increased gas in large and small bowel most compatible with a generalized ileus. DICTATED AND SIGNED BY: CHANDANA SUN MD DATE: 08/14/17 1213 CC: BEKAH CHAPA MD; PCP,NO ~ Course & Med Decision Making Course & Med Decision Making Pertinent Labs and Imaging studies reviewed. (See chart for details) []Patient is a pleasant 52-year-old male who comes in with bilateral lower back pain and abdominal pain on exam patient is mildly tender throughout the abdomen although he is not eating anything in 24 hours patient has some mild nausea but no fevers, chills, diarrhea or vomiting. Acute abdominal series demonstrates possible early ileus patient's abdominal pain and lack of support at home I have offered admission for management of his pain slowly food challenging him to see if he can tolerate food. Given the fact that the patient has issues with history and memory as well as a behavioral disorder I'm uncomfortable sending him home without serial exams to ensure that this is not becoming bowel obstruction. Patient's CBC and CMP are except for anemia which is chronic for patient. Laboratory Tests Test 08/14/17 11:30 08/14/17 11:49 Urine Collection Type Unknown Urine Color Yellow Urine Clarity Clear Urine pH 5.5 Urine Specific Hooper 1.025 Urine Protein Neg (NEG-TRACE) Urine Glucose (UA) 100 mg/dL (NEG) Urine Ketones (Stick) Neg mg/dL (NEG) Urine Blood Neg (NEG) Urine Nitrite Neg (NEG) Urine Bilirubin Neg (NEG) Urine Urobilinogen Dipstick 0.2 mg/dL (0.2 mg/dL) Urine Leukocyte Esterase Neg (NEG) Urine RBC 0 /HPF (0-2) Urine WBC Rare /HPF (0-4) Urine Squamous Epithelial Cells None /LPF Urine Bacteria 0 /HPF (0-FEW) Urine Mucus Marked /LPF White Blood Count 5.6 x10^3/uL (4.0-11.0) Red Blood Count 5.19 x10^6/uL (4.30-5.70) Hemoglobin 8.2 g/dL (13.0-17.5) L Hematocrit 30.1 % (39.0-53.0) L Mean Corpuscular Volume 58 fL (79-100) L Mean Corpuscular Hemoglobin 16 pg (25-35) L Mean Corpuscular Hemoglobin Concent 27 g/dL (31-37) L Red Cell Distribution Width 21.5 % (11.5-14.5) H Platelet Count 446 x10^3/uL (140-400) H Neutrophils (%) (Auto) 76 % (31-73) H Lymphocytes (%) (Auto) 19 % (24-48) L Monocytes (%) (Auto) 3 % (0-9) Eosinophils (%) (Auto) 2 % (0-3) Basophils (%) (Auto) 0 % (0-3) Neutrophils # (Auto) 4.2 x10^3uL (1.8-7.7) Lymphocytes # (Auto) 1.0 x10^3/uL (1.0-4.8) Monocytes # (Auto) 0.2 x10^3/uL (0.0-1.1) Eosinophils # (Auto) 0.1 x10^3/uL (0.0-0.7) Basophils # (Auto) 0.0 x10^3/uL (0.0-0.2) Platelet Estimate Increased (ADEQUATE) Hypochromasia Marked Poikilocytosis Mod Anisocytosis Mod Microcytosis Marked Tear Drop Cells Few Ovalocytes Mod Schistocytes Mod RBC Morphology Bizarre Forms Few Sodium Level 138 mmol/L (136-145) Potassium Level 4.2 mmol/L (3.5-5.1) Chloride Level 103 mmol/L (98-107) Carbon Dioxide Level 26 mmol/L (21-32) Anion Gap 9 (6-14) Blood Urea Nitrogen 17 mg/dL (8-26) Creatinine 1.0 mg/dL (0.7-1.3) Estimated GFR (Cockcroft-Gault) 79.1 BUN/Creatinine Ratio 17 (6-20) Glucose Level 82 mg/dL (70-99) Calcium Level 8.5 mg/dL (8.5-10.1) Total Bilirubin 0.6 mg/dL (0.2-1.0) Aspartate Amino Transferase (AST) 13 U/L (15-37) L Alanine Aminotransferase (ALT) 15 U/L (16-63) L Alkaline Phosphatase 93 U/L (46-116) Total Protein 7.5 g/dL (6.4-8.2) Albumin 3.8 g/dL (3.4-5.0) Albumin/Globulin Ratio 1.0 (1.0-1.7) Topographic Computator note: Dr. Valdez Topographic Computator called at of the service 1245 Consult called back at 12:45 PM Discussed the case I presented and they agreed with admission. Time of acceptance 12.45 "I have assessed this patient clinically and believe that their condition requires an admission to the hospital. After consulting the admitting physician about this case, they have asked that I admit this patient to their service as an inpatient based on the clinical presentation and my impression." Being admitted for abdominal pain and possible ileus. Patient is couple with no vomiting here in the emergency part I will give him a fluid and food challenge as will continue to wait for his response to therapy. Dragon Disclaimer Dragon Disclaimer This electronic medical record was generated, in whole or in part, using a voice recognition dictation system. Departure Departure: Impression: Primary Impression: Abdominal pain Additional Impressions: Nausea Ileus Disposition: ADMITTED INPATIENT Admitting Physician: Perla Valdez Condition: GUARDED Referrals: PCP,NO (PCP) Problem Qualifiers BEKAH CHAPA MD Aug 14, 2017 12:27
[2017-08-14 12:28] LABS: PLT ESTIMATE INCREASED (ADEQUATE)
[2017-08-14 12:29] LABS: ANISOCYTOSIS MOD; HYPOCHROMIA MARKED; MICROCYTOSIS MARKED; POIKILOCYTOSIS MOD
[2017-08-14 12:30] LABS: OVALOCYTES MOD; TEAR DROP CELLS FEW
[2017-08-14 12:31] LABS: BIZZARE CELLS FEW; SCHISTOCYTES MOD
[2017-08-14] MEDS ORDERED: ONDANSETRON PF 4 MG/2 ML VIAL. IV PRN (13:00)
[2017-08-14] MEDS ORDERED: ONDANSETRON PF 4 MG/2 ML VIAL. IV ONE (13:00)
[2017-08-14] MEDS ORDERED: 0.9 % SODIUM CHLORIDE 10 ML DISP.SYRIN. IV PRN (13:00)
[2017-08-14] MEDS ORDERED: ACETAMINOPHEN 325 MG TABLET PO PRN (13:00)
[2017-08-14] MEDS ORDERED: IV NORMAL SALINE 1,000ML 1,000 ML IV SCH ×2 (13:00)
[2017-08-14 14:40] VITALS: BP 122/73
--- NOTE | 2017-08-14 16:10 | RAD ---
Examination: CT abdomen and pelvis without contrast History: History of ileus Comparison: 11/06/2016 Technique: Axial CT images of the abdomen pelvis are performed without contrast. Coronal and sagittal reformats are performed PQRS Compliance Statement: One or more of the following individualized dose reduction techniques were utilized for this examination: 1. Automated exposure control 2. Adjustment of the mA and/or kV according to patient size 3. Use of iterative reconstruction technique Findings: 1.1 cm nodule identified in the right lung base grossly similar to prior exam. No evidence of free air identified in the abdomen. The evaluation of the solid organs is limited lack of IV contrast. Evaluation the bowel is limited due to lack of oral contrast. There is a cystic structure identified in the right lobe of the liver probably a cyst measuring 1.6 cm similar to prior exam. The visualized spleen, adrenal grossly appears unremarkable. The visualized pancreas grossly appears unremarkable. The stomach is mildly distended. The small bowel is nondilated. Feces and gas noted throughout the colon. The appendix is normal. Small amount of free fluid identified in the pelvis. Feces and gas noted throughout the colon. No evidence of intrarenal drink system calculus or hydronephrosis. The caliber of the aorta grossly appears unremarkable. No evidence of lytic bony destructive lesion. 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 Impression: 1. Small amount of free fluid identified in the pelvis, nonspecific etiology. 2. Feces and gas noted throughout the colon. Correlate for constipation. 3. 1.1 cm nodule identified in the right lower lobe of the lung grossly similar to prior exam.
[2017-08-14 16:57] VITALS: BP 129/78
[2017-08-14] MEDS ORDERED: KETOROLAC 15 MG/ML VIAL. IV PRN (18:00)
[2017-08-14] MEDS: IV NORMAL SALINE 1,000ML 1,000 ML IV SCH (18:30)
[2017-08-14] MEDS ORDERED: MAGNESIUM CITRATE 296 ML SOLUTION. PO ONE (19:00)
[2017-08-14] MEDS ORDERED: MVI, ADULT NO.4 WITH VIT K 10 ML, FOLIC ACID 1 MG, THIAMINE 100 MG in IV DEXTROSE 5 %-0... IV ONE ×4 (19:00)
[2017-08-14 19:37] VITALS: BP 101/67
[2017-08-14 23:10] VITALS: BP 125/75
[2017-08-15] MEDS: IV NORMAL SALINE 1,000ML 1,000 ML IV SCH ×3 (02:55→18:30)
[2017-08-15 05:02] VITALS: BP 131/71
[2017-08-15 07:07] LABS: BASO % 1 % (0-3); EOS # 0.1 x10^3/uL (0.0-0.7); EOS % 2 % (0-3); HEMATOCRIT 27.7 % (39.0-53.0); HEMOGLOBIN 7.6 g/dL (13.0-17.5); LYMPH # 1.4 x10^3/uL (1.0-4.8); LYMPH % 32 % (24-48); MEAN CORPUSCULAR HEMOGLOBIN 16 pg (25-35); MEAN CORPUSCULAR HGB CONC 27 g/dL (31-37); MEAN CORPUSCULAR VOLUME 58 fL (79-100); MONO # 0.3 x10^3/uL (0.0-1.1); MONO % 6 % (0-9); NEUT # 2.6 x10^3uL (1.8-7.7); NEUT % 59 % (31-73); PLATELET COUNT 468 x10^3/uL (140-400); RED CELL DISTRIBUTION WIDTH 21.3 % (11.5-14.5); WHITE BLOOD COUNT 4.4 x10^3/uL (4.0-11.0)
[2017-08-15 07:08] LABS: ALBUMIN 3.3 g/dL (3.4-5.0); ALBUMIN/GLOBULIN RATIO 1.1 (1.0-1.7); CALCIUM 8.1 mg/dL (8.5-10.1); CREATININE 0.9 mg/dL (0.7-1.3); GFR 89.3; MAGNESIUM 2.5 mg/dL (1.8-2.4); POTASSIUM 3.7 mmol/L (3.5-5.1); TOTAL BILIRUBIN 0.4 mg/dL (0.2-1.0); TOTAL PROTEIN 6.4 g/dL (6.4-8.2)
[2017-08-15] MEDS: POLYETHYLENE GLYCOL 3350 17 GM PACKET. PO SCH (08:42)
[2017-08-15 10:23] VITALS: BP 106/74
--- NOTE | 2017-08-15 13:36 | HP ---
ADMIT DATE: 08/14/2017 REASON FOR ADMISSION: Abdominal pain. HISTORY OF PRESENT ILLNESS: A 52-year-old male who basically uses the Emergency Room for his medical care, who presented to the ER with abdominal pain and flank pain. Does report some constipation with no BM for about 3 days. Denies any other problems. PAST MEDICAL HISTORY: Anemia, constipation, schizophrenia, depression. PAST SURGICAL HISTORY: Duodenal surgery. HABITS: Tobacco: None. Alcohol: None. SOCIAL HISTORY: Lives in his own apartment. Does not work. MEDICATIONS: The patient gets a shot of Abilify once a month. Otherwise, does not take any medications. REVIEW OF SYSTEMS: As per HPI. Just some constipation and abdominal pain. Denies fever, sore throat, shortness of breath, chest pain. OBJECTIVE: VITAL SIGNS: Blood pressure 106/74, pulse 66, respirations 20, pulse ox 100% on room air, temperature 97.6. GENERAL: The patient's affect is flat. Color is pale. HEENT: Hearing normal. Nose patent. Throat clear. NECK: Supple, without adenopathy. LUNGS: Clear to auscultation. CARDIOVASCULAR: Regular rhythm and rate. ABDOMEN: Soft. The patient has diffuse loud borborygmus sounds. No severe pain with palpation. No masses. EXTREMITIES: Without edema. IMAGING: Abdominal pelvic CT from yesterday reveal feces and gas in the colon and 1.1 cm nodule in the right lower lobe of the lungs similar and mildly distended stomach and ileus identified on acute abdominal x-ray. ASSESSMENT: 1. Ileus. 2. Constipation throughout. 3. Possible gastroparesis with delayed gastric emptying. 3. Schizophrenia. PLAN: Bowel rest. MiraLax. Pain medication if he needs it. Clear liquids. MARY REYES DO DR: LI/jyoti JOB#: [id number] / [id number]
--- NOTE | 2017-08-15 14:44 | RAD ---
KUB, 08/15/2017: History: Abdominal pain, ileus There is moderate amount of gas in large and small bowel without significant bowel distention. There is a moderate amount of gas in the stomach. There is no evidence of organomegaly. No abnormal abdominal calcification is seen. IMPRESSION: No acute abdominal abnormality is detected.
[2017-08-15 15:21] VITALS: BP 119/79
[2017-08-15 19:40] VITALS: BP 149/77
[2017-08-16] MEDS: IV NORMAL SALINE 1,000ML 1,000 ML IV SCH ×2 (00:05→08:33)
[2017-08-16 00:13] VITALS: BP 141/71
[2017-08-16 05:47] VITALS: BP 142/78
[2017-08-16 06:38] LABS: HEMATOCRIT 30.2 % (39.0-53.0); HEMOGLOBIN 8.1 g/dL (13.0-17.5); RED BLOOD COUNT 5.07 x10^6/uL (4.30-5.70); RED CELL DISTRIBUTION WIDTH 21.7 % (11.5-14.5); WHITE BLOOD COUNT 4.9 x10^3/uL (4.0-11.0)
[2017-08-16 06:53] LABS: ALBUMIN 3.4 g/dL (3.4-5.0); ALBUMIN/GLOBULIN RATIO 1.1 (1.0-1.7); CALCIUM 8.1 mg/dL (8.5-10.1); GFR 79.1; MAGNESIUM 2.3 mg/dL (1.8-2.4); POTASSIUM 4.3 mmol/L (3.5-5.1); TOTAL BILIRUBIN 0.7 mg/dL (0.2-1.0); TOTAL PROTEIN 6.6 g/dL (6.4-8.2)
[2017-08-16] MEDS: POLYETHYLENE GLYCOL 3350 17 GM PACKET. PO SCH (08:28)
[2017-08-16] MEDS ORDERED: METO10TA81 PO (09:36)
[2017-08-16] MEDS ORDERED: POLY17PO5 PO (09:37)
[2017-08-16 10:56] VITALS: BP 126/78
[2017-08-16 11:05] VITALS: BP 117/64
--- NOTE | 2017-08-16 21:05 | DS ---
DATE OF DISCHARGE: 08/16/2017 DISCHARGE DIAGNOSES: 1. Constipation. 2. Abdominal pain. 3. Suspect gastroparesis. 4. Schizophrenia, present on admission and stable. 5. Microcytic anemia, this is chronic. HOSPITAL COURSE: This is a 52-year-old male with schizophrenia, who uses the Emergency Room for his primary care. He presented with abdominal pain and CAT scan showed considerable constipation and possible ileus. He was treated with MiraLax and did have a large BM while he was here. We were not able to get a gastric emptying study over the weekend, so we will have to do that on as an outpatient. His stay was uneventful. OBJECTIVE: VITAL SIGNS: Blood pressure 142/78, pulse 66, respirations 20, pulse ox 97% on room air. GENERAL: A 52-year-old, in no acute distress. His color is pale. LUNGS: Clear. CARDIOVASCULAR: Regular rhythm and rate. ABDOMEN: Soft, good bowel sounds, nontender. EXTREMITIES: Without edema. PLAN: Discharge home on low-dose Reglan twice a day. Schedule a gastric emptying study as an outpatient. Instructions include eating several small meals throughout the day rather than a large meal. Voiced understanding. ____ was done. MARY REYES DO DR: LI/jyoti JOB#: [id number] / [id number]
== END 2017-08-16 14:00 | disposition home or self-care (01) | DRG 392 ==
LOC: ER 11:10 → 1 SOUTH 13:34
PROVIDERS: ADMIT Family Medicine; ATTEND Family Medicine
DX: K59.00 Constipation, unspecified (principal); F20.9 Schizophrenia, unspecified; K56.7 Ileus, unspecified; K31.84 Gastroparesis; D50.9 Iron deficiency anemia, unspecified; F32.9 Major depressive disorder, single episode, unspecified; Z88.6 Allergy status to analgesic agent
CPT/HCPCS: 36415; 74018; 74022; 74176; 80053; 81001; 83735; 85025; 85027; J7030

== ENCOUNTER 2017-10-21 15:25 | Emergency (ER) | payer OTHER ==
[~2017-10-21] VITALS: Ht 180.3 cm; Wt 69.4 kg
[~2017-10-21 15:25] MED LIST changes: +METO10TA81 PO
--- NOTE | 2017-10-21 15:47 | ED.ADGEN ---
Past History Past Medical History: Anemia, Constipation, Other Past Surgical History: No Surgical History Additional Past Surgical Histo: duodenal surg Smoking: Non-smoker Alcohol Use: None Drug Use: None Adult General Chief Complaint Chief Complaint The voices told me to spend all my money so I couldn't buy food HPI HPI Patient is a 52 year old male who presents with weakness from being hungry. Pt is known schizophrenic who normally has auditory hallucinations. He reports the voices have told him to "spend all my money" and then hasn't eaten for 2 days, thus he is feeling week. Pt currently living in independent living and states he has been taking his medications. He denies SI or HI. Review of Systems Review of Systems Constitutional: Denies fever or chills [] Eyes: Denies change in visual acuity, redness, or eye pain [] HENT: Denies nasal congestion or sore throat [] Respiratory: Denies cough or shortness of breath [] Cardiovascular: Denies chest pain GI: Denies abdominal pain, nausea, vomiting, bloody stools or diarrhea [] : Denies dysuria or hematuria [] Musculoskeletal: Denies back pain or joint pain [] Integument: Denies rash or skin lesions [] Neurologic: Denies headache, focal weakness or sensory changes [] Allergies Allergies Allergies Coded Allergies Type Severity Reaction Last Updated Verified aspirin Allergy Intermediate bleeding 10/30/16 Yes Physical Exam Physical Exam Constitutional: Well developed, well nourished, no acute distress, non-toxic appearance. [] HENT: Normocephalic, atraumatic, bilateral external ears normal, oropharynx moist, no oral exudates, nose normal. [] Eyes: PERRLA, EOMI, conjunctiva normal, no discharge. [] Neck: Normal range of motion, no tenderness, supple, no stridor. [] Cardiovascular:Heart rate regular with regular rhythm, no murmur [] Lungs & Thorax: Bilateral breath sounds clear to auscultation [] Abdomen: Bowel sounds normal, soft, no tenderness, no masses, no pulsatile masses. [] Skin: Warm, dry, no erythema, no rash. [] Back: No tenderness, no CVA tenderness. [] Extremities: No tenderness, no cyanosis, no clubbing, ROM intact, no edema. [] Neurologic: Alert and oriented X 3, normal motor function, normal sensory function, no focal deficits noted. [] Psychologic: flat affect, cooperative Current Patient Data Vital Signs Vital Signs Date Time Temp Pulse Resp B/P (MAP) Pulse Ox O2 Delivery O2 Flow Rate FiO2 10/21/17 15:36 97.5 60 18 98 Room Air EKG EKG [] Radiology/Procedures Radiology/Procedures [] Course & Med Decision Making Course & Med Decision Making Pertinent Labs and Imaging studies reviewed. (See chart for details) I reviewed pt's medical record. Pt has known schizophrenia but does not present as current threat to self or others. We gave pt a box lunch and soda. Feeling improved. Pt discharged and recommended f/u with psychiatrist. Final Impression Final Impression Schizophrenia Hungry[] Problems: Dragon Disclaimer Dragon Disclaimer This electronic medical record was generated, in whole or in part, using a voice recognition dictation system. JAMES JOHNSON MD Oct 21, 2017 15:47
[2017-10-21 16:12] VITALS: BP 115/51
== END 2017-10-21 16:10 | disposition home or self-care (01) ==
LOC: ER 15:25
DX: F20.9 Schizophrenia, unspecified (principal); Z88.6 Allergy status to analgesic agent; Z86.2 Personal history of diseases of the blood and blood-forming organs and certain disorders involving the immune mechanism
CPT/HCPCS: 99283

== ENCOUNTER 2017-10-30 11:54 | Emergency (ER) | payer OTHER ==
[~2017-10-30] VITALS: Ht 180.3 cm; Wt 63.7 kg
[2017-10-30 12:37] LABS: BASO % 1 % (0-3); EOS # 0.1 x10^3/uL (0.0-0.7); EOS % 2 % (0-3); HEMATOCRIT 29.9 % (39.0-53.0); HEMOGLOBIN 8.1 g/dL (13.0-17.5); LYMPH # 1.7 x10^3/uL (1.0-4.8); LYMPH % 33 % (24-48); MEAN CORPUSCULAR HEMOGLOBIN 16 pg (25-35); MEAN CORPUSCULAR HGB CONC 27 g/dL (31-37); MEAN CORPUSCULAR VOLUME 58 fL (79-100); MONO # 0.3 x10^3/uL (0.0-1.1); MONO % 5 % (0-9); NEUT % 59 % (31-73); PLATELET COUNT 469 x10^3/uL (140-400); RED BLOOD COUNT 5.21 x10^6/uL (4.30-5.70); RED CELL DISTRIBUTION WIDTH 21.2 % (11.5-14.5); WHITE BLOOD COUNT 5.1 x10^3/uL (4.0-11.0)
[2017-10-30 12:50] LABS: ALBUMIN/GLOBULIN RATIO 1.1 (1.0-1.7); CALCIUM 8.5 mg/dL (8.5-10.1); CREATININE 0.9 mg/dL (0.7-1.3); GFR 89.3; MAGNESIUM 2.4 mg/dL (1.8-2.4); POTASSIUM 4.3 mmol/L (3.5-5.1); TOTAL BILIRUBIN 0.5 mg/dL (0.2-1.0); TOTAL PROTEIN 7.7 g/dL (6.4-8.2)
[2017-10-30 12:52] LABS: BILIRUBIN,URINE NEG (NEG); CLARITY,URINE HAZY; COLOR,URINE YELLOW; GLUCOSE,URINE 100 mg/dL (NEG); NITRITE,URINE NEG (NEG); UROBILINOGEN,URINE 0.2 mg/dL (0.2 mg/dL)
[2017-10-30 12:53] LABS: BACTERIA,URINE FEW /HPF (0-FEW); BARBITURATES NEG (NEG); BENZODIAZEPINES NEG (NEG); CANNABINOIDS NEG (NEG); COCAINE NEG (NEG); METHADONE NEG (NEG); OPIATES NEG (NEG); PHENCYCLIDINE NEG (NEG); RBC,URINE 0 /HPF (0-2); SQUAMOUS EPITHELIAL CELL,UR FEW /LPF
[2017-10-30 12:55] LABS: AMPHETAMINE/METHAMPHETAMINE NEG (NEG)
--- NOTE | 2017-10-30 12:59 | EKG ---
[address] [address] Test Date: 2017-10-30 Test Time: 12:29:31 Pat Name: BOLIVAR JEFF Department: Room: Gender: M [employer]: [place] : 1965 Requested By: YANA PRICE Order Number: [id number] Reading MD: Measurements Intervals [place] Rate: 58 P: 49 AK: 140 QRS: 48 QRSD: 80 T: 59 QT: 370 QTc: 366 Interpretive Statements SINUS RHYTHM NORMAL ECG RI6.01 No previous ECG available for comparison
--- NOTE | 2017-10-30 13:32 | PHYS DOC ---
Past History Past Medical History: Anemia, Constipation, Other Past Surgical History: No Surgical History Additional Past Surgical Histo: duodenal surg Smoking: Non-smoker Alcohol Use: None Drug Use: None Adult General Chief Complaint Chief Complaint: PSYCH EVALUATION HPI HPI Patient is a 52 year old M who presents for medical screening prior to psych admission. Ignacio has a history of schizophrenia. He has chronic intermittent auditory hallucinations. He states he has a voice that is telling him he cannot eat until he is institutionalized. Today he went to the [facility] in an attempt to be institutionalized. He was directed to the emergency room for further evaluation. He has no complaints other than auditory hallucinations telling him not to eat until he is institutionalized. Review of Systems Review of Systems Constitutional: Denies fever or chills [] Eyes: Denies change in visual acuity, redness, or eye pain [] HENT: Denies nasal congestion or sore throat [] Respiratory: Denies cough or shortness of breath [] Cardiovascular: No additional information not addressed in HPI [] GI: Denies abdominal pain, nausea, vomiting, bloody stools or diarrhea [] : Denies dysuria or hematuria [] Musculoskeletal: Denies back pain or joint pain [] Integument: Denies rash or skin lesions [] Neurologic: Denies headache, focal weakness or sensory changes [] Endocrine: Denies polyuria or polydipsia [] All other systems were reviewed and found to be within normal limits, except as documented in this note. Family History Family History No pertinent family medical history was reported Allergies Allergies Allergies Coded Allergies Type Severity Reaction Last Updated Verified aspirin Allergy Intermediate bleeding 10/30/16 Yes Physical Exam Physical Exam Constitutional: Well developed, well nourished, no acute distress, non-toxic appearance. [] HENT: Normocephalic, atraumatic, bilateral external ears normal, oropharynx moist, no oral exudates, nose normal. [] Eyes: PERRLA, EOMI, conjunctiva normal, no discharge. [] Neck: Normal range of motion, no tenderness, supple, no stridor. [] Cardiovascular:Heart rate regular rhythm, no murmur [] Lungs & Thorax: Bilateral breath sounds clear to auscultation [] Abdomen: Bowel sounds normal, soft, no tenderness, no masses, no pulsatile masses. [] Skin: Warm, dry, no erythema, no rash. [] Back: No tenderness, no CVA tenderness. [] Extremities: No tenderness, no cyanosis, no clubbing, ROM intact, no edema. [] Neurologic: Alert and oriented X 3, normal motor function, normal sensory function, no focal deficits noted. [] Current Patient Data Vital Signs Vital Signs Date Time Temp Pulse Resp B/P (MAP) Pulse Ox O2 Delivery O2 Flow Rate FiO2 10/30/17 12:16 98.1 65 18 100 Room Air Lab Results Laboratory Tests Test 10/30/17 12:05 10/30/17 12:13 Urine Collection Type Unknown Urine Color Yellow Urine Clarity Hazy Urine pH 5.5 Urine Specific [place] 1.020 Urine Protein Neg (NEG-TRACE) Urine Glucose (UA) 100 mg/dL (NEG) Urine Ketones (Stick) Neg mg/dL (NEG) Urine Blood Neg (NEG) Urine Nitrite Neg (NEG) Urine Bilirubin Neg (NEG) Urine Urobilinogen Dipstick 0.2 mg/dL (0.2 mg/dL) Urine Leukocyte Esterase Neg (NEG) Urine RBC 0 /HPF (0-2) Urine WBC 1-4 /HPF (0-4) Urine Squamous Epithelial Cells Few /LPF Urine Bacteria Few /HPF (0-FEW) Urine Mucus Marked /LPF Urine Opiates Screen Neg (NEG) Urine Methadone Screen Neg (NEG) Urine Barbiturates Neg (NEG) Urine Phencyclidine Screen Neg (NEG) Urine Amphetamine/Methamphetamine Neg (NEG) Urine Benzodiazepines Screen Neg (NEG) Urine Cocaine Screen Neg (NEG) Urine Cannabinoids Screen Neg (NEG) Urine Ethyl Alcohol Neg (NEG) White Blood Count 5.1 x10^3/uL (4.0-11.0) Red Blood Count 5.21 x10^6/uL (4.30-5.70) Hemoglobin 8.1 g/dL (13.0-17.5) L Hematocrit 29.9 % (39.0-53.0) L Mean Corpuscular Volume 58 fL (79-100) L Mean Corpuscular Hemoglobin 16 pg (25-35) L Mean Corpuscular Hemoglobin Concent 27 g/dL (31-37) L Red Cell Distribution Width 21.2 % (11.5-14.5) H Platelet Count 469 x10^3/uL (140-400) H Neutrophils (%) (Auto) 59 % (31-73) Lymphocytes (%) (Auto) 33 % (24-48) Monocytes (%) (Auto) 5 % (0-9) Eosinophils (%) (Auto) 2 % (0-3) Basophils (%) (Auto) 1 % (0-3) Neutrophils # (Auto) 3.0 x10^3uL (1.8-7.7) Lymphocytes # (Auto) 1.7 x10^3/uL (1.0-4.8) Monocytes # (Auto) 0.3 x10^3/uL (0.0-1.1) Eosinophils # (Auto) 0.1 x10^3/uL (0.0-0.7) Basophils # (Auto) 0.0 x10^3/uL (0.0-0.2) Sodium Level 138 mmol/L (136-145) Potassium Level 4.3 mmol/L (3.5-5.1) Chloride Level 104 mmol/L (98-107) Carbon Dioxide Level 29 mmol/L (21-32) Anion Gap 5 (6-14) L Blood Urea Nitrogen 20 mg/dL (8-26) Creatinine 0.9 mg/dL (0.7-1.3) Estimated GFR (Cockcroft-Gault) 89.3 BUN/Creatinine Ratio 22 (6-20) H Glucose Level 86 mg/dL (70-99) Calcium Level 8.5 mg/dL (8.5-10.1) Magnesium Level 2.4 mg/dL (1.8-2.4) Total Bilirubin 0.5 mg/dL (0.2-1.0) Aspartate Amino Transferase (AST) 15 U/L (15-37) Alanine Aminotransferase (ALT) 18 U/L (16-63) Alkaline Phosphatase 95 U/L (46-116) Total Protein 7.7 g/dL (6.4-8.2) Albumin 4.0 g/dL (3.4-5.0) Albumin/Globulin Ratio 1.1 (1.0-1.7) EKG EKG Normal sinus rhythm, normal QRS interval, no ST changes, normal EKG Radiology/Procedures Radiology/Procedures [] Course & Med Decision Making Course & Med Decision Making Pertinent Labs and Imaging studies reviewed. (See chart for details) [] Dragon Disclaimer Dragon Disclaimer This electronic medical record was generated, in whole or in part, using a voice recognition dictation system. Departure Departure: Impression: Primary Impression: Encounter for medical screening examination Disposition: 05 XFER OTHER Condition: STABLE Referrals: SANDOVAL ROBERTS MD (PCP) YANA PRICE MD Oct 30, 2017 13:32
[2017-10-30 13:54] LABS: % BANDS 0 % (0-9); % BASOS 3 % (0-3); % EOS 0 % (0-5); % LYMPHS 22 % (24-48); % MONOS 10 % (0-10); % SEGS 65 % (35-66); PLT ESTIMATE INCREASED (ADEQUATE)
[2017-10-30 13:55] LABS: ANISOCYTOSIS MOD; HYPOCHROMIA MARKED; MICROCYTOSIS MOD; OVALOCYTES MOD; POIKILOCYTOSIS MOD; SCHISTOCYTES FEW; TEAR DROP CELLS PRESENT
[2017-10-30 15:03] VITALS: BP 100/70
== END 2017-10-30 18:40 | disposition short-term general hospital (02) ==
LOC: ER 11:54 → EEVIPCON 11:54 → ER 18:40
DX: R44.0 Auditory hallucinations (principal); F20.9 Schizophrenia, unspecified; Z86.2 Personal history of diseases of the blood and blood-forming organs and certain disorders involving the immune mechanism; Z88.6 Allergy status to analgesic agent
CPT/HCPCS: 36415; 80053; 80307; 81001; 83735; 85007; 85025; 93005; 99285-25; G0479

== ENCOUNTER → 2017-11-12 | Outpatient (CLI) | payer OTHER ==
[2017-10-30 15:03] VITALS: BP 100/70
[2017-11-12 12:51] LABS: BASO % 0 % (0-3); EOS # 0.1 x10^3/uL (0.0-0.7); EOS % 3 % (0-3); HEMATOCRIT 35.5 % (39.0-53.0); HEMOGLOBIN 9.7 g/dL (13.0-17.5); LYMPH # 1.6 x10^3/uL (1.0-4.8); LYMPH % 37 % (24-48); MEAN CORPUSCULAR HEMOGLOBIN 17 pg (25-35); MEAN CORPUSCULAR HGB CONC 27 g/dL (31-37); MEAN CORPUSCULAR VOLUME 63 fL (79-100); MONO # 0.2 x10^3/uL (0.0-1.1); MONO % 5 % (0-9); NEUT # 2.3 x10^3uL (1.8-7.7); NEUT % 55 % (31-73); PLATELET COUNT 408 x10^3/uL (140-400); RED BLOOD COUNT 5.61 x10^6/uL (4.30-5.70); RED CELL DISTRIBUTION WIDTH 28.5 % (11.5-14.5); WHITE BLOOD COUNT 4.2 x10^3/uL (4.0-11.0)
[2017-11-12 13:07] LABS: ALBUMIN 4.2 g/dL (3.4-5.0); ALBUMIN/GLOBULIN RATIO 1.1 (1.0-1.7); CALCIUM 8.6 mg/dL (8.5-10.1); GFR 79.1; POTASSIUM 4.3 mmol/L (3.5-5.1); TOTAL BILIRUBIN 0.6 mg/dL (0.2-1.0); TOTAL PROTEIN 7.9 g/dL (6.4-8.2)
[2017-11-12 15:43] LABS: ANISOCYTOSIS MOD; HYPOCHROMIA MOD; MICROCYTOSIS MOD; OVALOCYTES FEW; PLT ESTIMATE INCREASED (ADEQUATE); SCHISTOCYTES FEW
== END | disposition home or self-care (01) ==
LOC: LAB 11:58
PROVIDERS: ATTEND Clinical Nurse Specialist Psychiatric/Mental Health, Adult
DX: Z51.81 Encounter for therapeutic drug level monitoring (principal); Z79.899 Other long term (current) drug therapy
CPT/HCPCS: 36415; 80053; 80061; 84146; 85025

== ENCOUNTER 2017-12-12 17:00 | Emergency (ER) | payer OTHER ==
[~2017-12-12] VITALS: Ht 180.3 cm; Wt 63.7 kg
[2017-12-12 17:33] LABS: FECAL OB PT NEGATIVE (NEG)
--- NOTE | 2017-12-12 17:41 | RAD ---
EXAM: CHEST 1 VIEW. HISTORY: Hemoptysis. COMPARISON: February 20, 2016. FINDINGS: A frontal view of the chest is obtained. There are no confluent infiltrates. A nodule in the right base measures 1 cm and has stable cords are prior studies. Trace bilateral pleural effusions are suspected. There is no pneumothorax. The heart is not enlarged. IMPRESSION: 1. Suspect trace bilateral pleural effusions. No confluent infiltrates. 2. A 1 cm right basilar nodule has been stable chronically and is likely benign. Electronically signed by: Ava Briones MD (12/12/2017 5:37 PM) [facility]
[2017-12-12 17:51] LABS: BASO % 1 % (0-3); EOS # 0.2 x10^3/uL (0.0-0.7); EOS % 4 % (0-3); HEMATOCRIT 30.4 % (39.0-53.0); HEMOGLOBIN 8.8 g/dL (13.0-17.5); LYMPH # 1.5 x10^3/uL (1.0-4.8); LYMPH % 31 % (24-48); MEAN CORPUSCULAR HEMOGLOBIN 18 pg (25-35); MEAN CORPUSCULAR HGB CONC 29 g/dL (31-37); MEAN CORPUSCULAR VOLUME 64 fL (79-100); MONO # 0.3 x10^3/uL (0.0-1.1); MONO % 6 % (0-9); NEUT # 2.8 x10^3uL (1.8-7.7); NEUT % 58 % (31-73); PLATELET COUNT 371 x10^3/uL (140-400); RED BLOOD COUNT 4.79 x10^6/uL (4.30-5.70); RED CELL DISTRIBUTION WIDTH 23.8 % (11.5-14.5); WHITE BLOOD COUNT 4.8 x10^3/uL (4.0-11.0)
--- NOTE | 2017-12-12 18:00 | PHYS DOC ---
Past History Past Medical History: Anemia, Constipation, Schizophrenia, Other Past Surgical History: Tonsillectomy, Other Additional Past Surgical Histo: duodenal surg Smoking: Non-smoker Alcohol Use: None Drug Use: None Adult General Chief Complaint Chief Complaint: COUGH HPI HPI Patient is a 52-year-old male with a history ofOSLER TRUJILLO RENDU and schizophrenia who is brought in by ambulance with what sounds most like hemoptysis he said he coughed up a different times when he said was a total of approximately three quarters of a cup of bright red blood. He said at first it was a larger amount and it was smaller and smaller amount but he still coughed it up. When asked if he threw it up or coughed up he says he thinks he coughed it up. He describes some mild abdominal discomfort he says he has had brown stool no fever he does not take any medications except for monthly injections for schizophrenia Review of Systems Review of Systems Constitutional: Denies fever or chills [] HENT: Denies nasal congestion or sore throat [] Respiratory: Denies shortness of breath Cardiovascular: No additional information not addressed in HPI [] GI: History of present illness All other systems were reviewed and found to be within normal limits, except as documented in this note. Current Medications Current Medications See nursing for home meds Allergies Allergies Allergies Coded Allergies Type Severity Reaction Last Updated Verified aspirin Allergy Intermediate bleeding 12/12/17 Yes Physical Exam Physical Exam Constitutional: , no acute distress, non-toxic appearance. [] HENT: Normocephalic, atraumatic, bilateral external ears normal, oropharynx moist, no oral exudates, nose normal. []There are some very superficial appearing telangiectasias on the lower lip no evidence of recent bleeding Eyes: PERRLA, EOMI, conjunctiva normal, no discharge. [] Neck: Normal range of motion, no tenderness, supple, no stridor. [] Cardiovascular:Heart rate regular rhythm, no murmur [] Lungs & Thorax: Bilateral breath sounds clear to auscultation [] Rectal exam was brown heme-negative stool Abdomen: Bowel sounds normal, soft, no tenderness, no masses, no pulsatile masses. Skin: Warm, dry, no erythema, no rash. [Small AVs, Lip lesions Back: No tenderness, no CVA tenderness. [] Extremities: No tenderness, no cyanosis, no clubbing, ROM intact, no edema. [] Neurologic: Alert and oriented X 3, normal motor function, normal sensory function, no focal deficits noted. [] Psychologic: Affect is withdrawn mood is slightly blunted Hallucination- currently two older women talking to him. Current Patient Data Vital Signs Vital Signs Date Time Temp Pulse Resp B/P (MAP) Pulse Ox O2 Delivery O2 Flow Rate FiO2 12/12/17 17:00 98.5 76 18 99 Room Air Lab Results Laboratory Tests Test 12/12/17 17:10 12/12/17 17:25 Stool Occult Blood Negative (NEG) White Blood Count 4.8 x10^3/uL (4.0-11.0) Red Blood Count 4.79 x10^6/uL (4.30-5.70) Hemoglobin 8.8 g/dL (13.0-17.5) L Hematocrit 30.4 % (39.0-53.0) L Mean Corpuscular Volume 64 fL (79-100) L Mean Corpuscular Hemoglobin 18 pg (25-35) L Mean Corpuscular Hemoglobin Concent 29 g/dL (31-37) L Red Cell Distribution Width 23.8 % (11.5-14.5) H Platelet Count 371 x10^3/uL (140-400) Neutrophils (%) (Auto) 58 % (31-73) Lymphocytes (%) (Auto) 31 % (24-48) Monocytes (%) (Auto) 6 % (0-9) Eosinophils (%) (Auto) 4 % (0-3) H Basophils (%) (Auto) 1 % (0-3) Neutrophils # (Auto) 2.8 x10^3uL (1.8-7.7) Lymphocytes # (Auto) 1.5 x10^3/uL (1.0-4.8) Monocytes # (Auto) 0.3 x10^3/uL (0.0-1.1) Eosinophils # (Auto) 0.2 x10^3/uL (0.0-0.7) Basophils # (Auto) 0.0 x10^3/uL (0.0-0.2) Platelet Estimate Pending EKG EKG [] Radiology/Procedures Radiology/Procedures CT= Stable AVM formations. No evidence hemorrhage. Liver AVM. [] Impressions: There are no confluent infiltrates. A nodule in the right base measures 1 cm and has stable cords are prior studies. Trace bilateral pleural effusions are suspected. There is no pneumothorax. The heart is not enlarged. IMPRESSION: 1. Suspect trace bilateral pleural effusions. No confluent infiltrates. 2. A 1 cm right basilar nodule has been stable chronically and is likely benign. Electronically signed by: Ava Briones MD (12/12/2017 5:37 PM) [facility] Course & Med Decision Making Course & Med Decision Making Pertinent Labs and Imaging studies reviewed. (See chart for details) []ROGELIO Velez with a pulmonary AVM coming in with report of hemoptysis patient appears hemodynamically and respiratory-yadav stable Did drop hemoglobin slightly but no obvious evidence of bleeding nevertheless we 'll do a CT chest with contrast to evaluate THE AVM S/O TO TERRY Pt. has not produced any spit up or cough with documentable hemoptysis or active esophageal / gastric or GI bleeding. No nasal bleeding noted. On reexam patient requesting discharge. Patient encouraged follow-up with primary care. Return if any concerns. CT exam shows stable AVMs. I have treated this pt many times over past 5+ years. Has in past been High ED use and non-compliance because of untreated or non-compliant with his Schizophrenia meds. Pt. has in past manly presented with GI symptoms and GI bleeds. Pt. recently living in area of [facility] and going to their ED. Pt. Currently requesting discharge. Pt. encourage to take MV wit Fe , for his chronic anemia. Return if any concerns. Keep follow up with primary and counseling center. Pt. currently assigned to Dr. Lawson. as primary. Pt. still has voices, not as many as before- now it is just two women voices that tells him not to take his meds and follow up. Pt. encourage to get his Abilify depo- next one due January 05 . 1. Schizophrenia 2. Tamia Trujillo 3. AVM s -multiple 4. Chronic microcytic hypochromic anemia 5. Hallucinations- Voices (Only two older women today) - No suicidal or homicidal ideation 6. Complaints of hemoptysis Dragon Disclaimer Dragon Disclaimer This electronic medical record was generated, in whole or in part, using a voice recognition dictation system. Departure Departure: Referrals: CRISS POWER MD (PCP) ROSY DUQUE MD Dec 12, 2017 18:00 KENDELL STEWART MD Dec 12, 2017 20:18
[2017-12-12 18:01] LABS: ALBUMIN 3.7 g/dL (3.4-5.0); ALBUMIN/GLOBULIN RATIO 1.1 (1.0-1.7); CALCIUM 8.2 mg/dL (8.5-10.1); CREATININE 1.1 mg/dL (0.7-1.3); GFR 70.9; POTASSIUM 3.5 mmol/L (3.5-5.1); TOTAL BILIRUBIN 0.5 mg/dL (0.2-1.0)
[2017-12-12] MEDS ORDERED: IOHEXOL 300 MG/ML 75 ML VIAL. IV ONE (18:15)
[2017-12-12 18:30] LABS: % BANDS 0 % (0-9); % BASOS 0 % (0-3); % EOS 3 % (0-5); % LYMPHS 15 % (24-48); % MONOS 4 % (0-10); % SEGS 78 % (35-66); ANISOCYTOSIS MOD; HYPOCHROMIA MARKED; MICROCYTOSIS MARKED; PLT ESTIMATE ADEQUATE (ADEQUATE)
[2017-12-12 18:31] LABS: OVALOCYTES MOD; TEAR DROP CELLS OCC
--- NOTE | 2017-12-12 19:52 | RAD ---
EXAM: CT OF THE CHEST WITH CONTRAST. HISTORY: Hemoptysis, arteriovenous malformation. TECHNIQUE: Computed tomography of the chest was performed after the intravenous administration of 75 mL Omnipaque 300. COMPARISON: January 06, 2016. FINDINGS: Images of the upper abdomen reveal heterogeneous mostly subcapsular nonmass-like arterial enhancement throughout the visualized portions of the liver. No macroscopic arteriovenous malformation is seen. A cyst in segment 6 measures 1.6 cm.. Bone windows reveal no suspicious lesions. A fluid density mass in the right paratracheal station measures 3.3 x 2.0 cm and is stable. This is consistent with a foregut duplication cyst. There are no pathologically enlarged mediastinal or axillary lymph nodes. There is no pleural or pericardial effusion. The heart is not enlarged. An arteriovenous malformation is again noted in the right lower lobe laterally. This results in the nodular opacity measuring 1.1 x 0.8 cm. There is no clear interval change. Mild scarring is noted in the inferior to it. There is no surrounding hemorrhage. Another smaller arteriovenous malformation is suspected medially in the right lower lobe on image 56, also without hemorrhage. There are no infiltrates suggestive of hemoptysis. No endobronchial lesion is seen. IMPRESSION: 1. 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 No evidence of hemorrhage. No endobronchial lesion or other evidence for hemoptysis. 2. Nonmasslike arterial enhancement of the peripheral hepatic parenchyma. This can be seen in the setting of small intrahepatic arteriovenous measures or other causes of shunting. Correlate for causes of multiple arteriovenous malformations such as hereditary hemorrhagic telangiectasia. *One or more of the following individualized dose reduction techniques were utilized for this examination: 1. Automated exposure control. 2. Adjustment of the mA and/or kV according to patient size. 3. Use of iterative reconstruction technique. Electronically signed by: Ava Briones MD (12/12/2017 7:48 PM) [facility]
[2017-12-12 20:15] VITALS: BP 119/68
== END 2017-12-12 20:44 | disposition home or self-care (01) ==
LOC: ER 17:00
DX: R04.2 Hemoptysis (principal); D50.9 Iron deficiency anemia, unspecified; F20.9 Schizophrenia, unspecified; I78.0 Hereditary hemorrhagic telangiectasia; Q25.72 Congenital pulmonary arteriovenous malformation; Z88.6 Allergy status to analgesic agent
CPT/HCPCS: 36415; 71045; 71260; 80053; 82274; 83690; 85007; 85025; 85610; 99285; Q9967

== ENCOUNTER 2018-02-20 16:59 | Emergency (ER) | payer OTHER ==
[~2018-02-20] VITALS: Ht 180.3 cm; Wt 63.7 kg
[2018-02-20 17:06] VITALS: BP 131/78
--- NOTE | 2018-02-20 18:02 | PHYS DOC ---
Past History Past Medical History: Anemia, GI Bleed, Schizophrenia Past Surgical History: Tonsillectomy, Other Additional Past Surgical Histo: duodenal surg Smoking: Non-smoker Alcohol Use: None Drug Use: None Adult General Chief Complaint Chief Complaint: ABDOMINAL PAIN [facility] HPI Patient is a 52 -year-old male patient brought by EMS with complaining of abdominal pain. Patient has history of schizophrenia and frequent emergency room visits and complaining of lower abdominal cramping pain about 25 minutes prior to arrival that was 7/10 and decreased to 4/10 while he was in the ambulance. Patient denies nausea and vomiting, fever and chills, urinary symptom. Patient states he had a bowel movement yesterday but didn't have bowel movement today. Review of Systems Review of Systems Constitutional: Denies fever or chills [] Eyes: Denies change in visual acuity, redness, or eye pain [] HENT: Denies nasal congestion or sore throat [] Respiratory: Denies cough or shortness of breath [] Cardiovascular: No additional information not addressed in HPI [] GI: Denies abdominal pain, nausea, vomiting, bloody stools or diarrhea [] : Denies dysuria or hematuria [] Musculoskeletal: Denies back pain or joint pain [] Integument: Denies rash or skin lesions [] Neurologic: Denies headache, focal weakness or sensory changes [] Endocrine: Denies polyuria or polydipsia [] All other systems were reviewed and found to be within normal limits, except as documented in this note. Allergies Allergies Allergies Coded Allergies Type Severity Reaction Last Updated Verified aspirin Allergy Intermediate bleeding 12/12/17 Yes Physical Exam Physical Exam Constitutional: Well nourished, no acute distress, non-toxic appearance. [] HENT: Normocephalic, atraumatic, oropharynx moist, no oral exudates, nose normal. [] Eyes: PERRLA, EOMI, conjunctiva normal, no discharge. [] Neck: Normal range of motion, no tenderness, supple, no stridor. [] Cardiovascular:Heart rate regular rhythm, no murmur [] Lungs & Thorax: Bilateral breath sounds clear to auscultation [] Abdomen: Bowel sounds normal, soft, no tenderness, no masses, no pulsatile masses. [] Skin: Warm, dry, no erythema, no rash. [] Back: No tenderness, no CVA tenderness. [] Extremities: No tenderness, no cyanosis, no clubbing, ROM intact, no edema. [] Neurologic: Alert and oriented X 3, normal motor function, normal sensory function, no focal deficits noted. [] Current Patient Data Vital Signs Vital Signs Date Time Temp Pulse Resp B/P (MAP) Pulse Ox O2 Delivery O2 Flow Rate FiO2 02/20/18 17:06 98.0 78 20 98 Room Air Lab Results Laboratory Tests Test 02/20/18 17:16 Glucose (Fingerstick) 66 mg/dL (70-99) L EKG EKG [] Radiology/Procedures Radiology/Procedures [] Course & Med Decision Making Course & Med Decision Making Pertinent Labs reviewed. (See chart for details) Evolution of patient in ER showed 52-year-old male patient with complaining of abdominal pain for 25 minutes prior to arrival that improved at arrival to ER. Patient had history of schizophrenia frequent emergency room visits. Patient had unremarkable physical exam. Patient had blood sugar of 66 and had orange juice and denied any abdominal pain. Patient instructed to take medication for constipation and follow up with his primary care physician Eliazar Disclaimer Eliazar Disclaimer This electronic medical record was generated, in whole or in part, using a voice recognition dictation system. Departure Departure: Impression: Primary Impression: Abdominal pain Additional Impressions: Schizophrenia Constipation Disposition: HOME, SELF-CARE (at 1800) Condition: IMPROVED Referrals: SANDOVAL ROBERTS MD (PCP) Patient Instructions: Abdominal Pain, Constipation, Adult Additional Instructions: Drink plenty of liquids Follow-up with your primary care physician in 3-5 days Return to ER if not getting better Problem Qualifiers SANJAY MARIE MD Feb 20, 2018 18:02
== END 2018-02-20 18:00 | disposition home or self-care (01) ==
LOC: ER 16:59
DX: K59.00 Constipation, unspecified (principal); F20.9 Schizophrenia, unspecified; Z86.2 Personal history of diseases of the blood and blood-forming organs and certain disorders involving the immune mechanism; Z88.6 Allergy status to analgesic agent
CPT/HCPCS: 82947; 99283

== ENCOUNTER 2018-03-05 03:03 | Emergency (ER) | payer OTHER ==
[~2018-03-05] VITALS: Ht 180.3 cm; Wt 56.4 kg
--- NOTE | 2018-03-05 03:19 | ED.ADGEN ---
Past History Past Medical History: Anemia, GI Bleed, Schizophrenia Past Medical History Kern Osler Rendu syndrome Past Surgical History: Tonsillectomy, Other Additional Past Surgical Histo: duodenal surg Smoking: Non-smoker Alcohol Use: None Drug Use: None Adult General Chief Complaint Chief Complaint Spitting up blood upon waking HPI HPI Patient has history of Osler Ekrn Rendu syndrome Patient awoke just prior presentation this morning spitting up blood. He spit up about a 1/3 of a cup of blood. He denies melena. He did have a nose bleed earlier yesterday. He's had mild epigastric pain tonight. Review of Systems Review of Systems Constitutional: Denies fever or chills Eyes: Denies change in visual acuity, redness, or eye pain HENT: Denies nasal congestion or sore throat, with nose bleed Respiratory: Denies cough or shortness of breath, spitting up blood Cardiovascular: Denies chest pain or SOB GI: Denies abdominal pain, nausea, vomiting, bloody stools or diarrhea : Denies dysuria or hematuria Musculoskeletal: Denies back pain or joint pain Integument: Denies rash or skin lesions Neurologic: Denies headache, focal weakness or sensory changes Endocrine: Denies polyuria or polydipsia All other systems were reviewed and found to be within normal limits, except as documented in this note. Current Medications Current Medications Current Medications Medications (Trade) Dose Ordered Sig/Tomasz Start Time Stop Time Status Last Admin Dose Admin Pantoprazole Sodium (Protonix) 40 mg 1X ONCE 03/05/18 03:30 03/05/18 03:31 DC 03/05/18 03:44 40 MG Allergies Allergies Allergies Coded Allergies Type Severity Reaction Last Updated Verified aspirin Allergy Intermediate bleeding 12/12/17 Yes Physical Exam Physical Exam Constitutional: Well developed, well nourished, no acute distress, non-toxic appearance. HENT: Normocephalic, atraumatic, bilateral external ears normal, oropharynx moist, no oral exudates, with multiple telangiectasias on lips, nose with right sided dried anterior epistaxis Eyes: PERRLA, EOMI, conjunctiva normal, no discharge. Neck: Normal range of motion, no tenderness, supple, no stridor. Cardiovascular:Heart rate regular rhythm, no murmur Lungs & Thorax: Bilateral breath sounds clear to auscultation Abdomen: Bowel sounds normal, soft, mild epigastric tenderness, no masses, no pulsatile masses Rectal: normal tone, clear mucous in vault, no blood Skin: Warm, dry, no erythema, no rash. with scattered telangiectasias Back: No tenderness, no CVA tenderness. Extremities: No tenderness, no cyanosis, no clubbing, ROM intact, no edema. Neurologic: Alert and oriented X 3, normal motor function, normal sensory function, no focal deficits noted. Psychologic: Affect normal, judgement normal, mood normal. Current Patient Data Vital Signs Vital Signs Date Time Temp Pulse Resp B/P (MAP) Pulse Ox O2 Delivery O2 Flow Rate FiO2 03/05/18 03:03 97.6 20 100 Room Air Lab Results Laboratory Tests Test 03/05/18 03:14 03/05/18 03:30 Stool Occult Blood Negative (NEG) White Blood Count 4.5 x10^3/uL (4.0-11.0) Red Blood Count 5.69 x10^6/uL (4.30-5.70) Hemoglobin 9.9 g/dL (13.0-17.5) L Hematocrit 34.5 % (39.0-53.0) L Mean Corpuscular Volume 61 fL (79-100) L Mean Corpuscular Hemoglobin 17 pg (25-35) L Mean Corpuscular Hemoglobin Concent 29 g/dL (31-37) L Red Cell Distribution Width 20.4 % (11.5-14.5) H Platelet Count 426 x10^3/uL (140-400) H Neutrophils (%) (Auto) 42 % (31-73) Lymphocytes (%) (Auto) 50 % (24-48) H Monocytes (%) (Auto) 4 % (0-9) Eosinophils (%) (Auto) 3 % (0-3) Basophils (%) (Auto) 1 % (0-3) Neutrophils # (Auto) 1.9 x10^3uL (1.8-7.7) Lymphocytes # (Auto) 2.2 x10^3/uL (1.0-4.8) Monocytes # (Auto) 0.2 x10^3/uL (0.0-1.1) Eosinophils # (Auto) 0.1 x10^3/uL (0.0-0.7) Basophils # (Auto) 0.0 x10^3/uL (0.0-0.2) Segmented Neutrophils % 66 % (35-66) Band Neutrophils % 1 % (0-9) Lymphocytes % 27 % (24-48) Monocytes % 4 % (0-10) Eosinophils % 1 % (0-5) Basophils % 1 % (0-3) Platelet Estimate Increased (ADEQUATE) Large Platelets Occ Hypochromasia Mod Anisocytosis Slight Microcytosis Mod Spherocytes Occ Ovalocytes Occ Prothrombin Time 11.3 SEC (9.4-11.4) Prothrombin Time INR 1.1 (0.9-1.1) PTT 26 SEC (23-33) Sodium Level 142 mmol/L (136-145) Potassium Level 3.9 mmol/L (3.5-5.1) Chloride Level 107 mmol/L (98-107) Carbon Dioxide Level 28 mmol/L (21-32) Anion Gap 7 (6-14) Blood Urea Nitrogen 19 mg/dL (8-26) Creatinine 1.0 mg/dL (0.7-1.3) Estimated GFR (Cockcroft-Gault) 79.1 BUN/Creatinine Ratio 19 (6-20) Glucose Level 102 mg/dL (70-99) H Calcium Level 8.6 mg/dL (8.5-10.1) Total Bilirubin 0.4 mg/dL (0.2-1.0) Aspartate Amino Transferase (AST) 12 U/L (15-37) L Alanine Aminotransferase (ALT) 18 U/L (16-63) Alkaline Phosphatase 92 U/L (46-116) Total Protein 7.2 g/dL (6.4-8.2) Albumin 3.8 g/dL (3.4-5.0) Albumin/Globulin Ratio 1.1 (1.0-1.7) Lipase 266 U/L (73-393) EKG EKG [] Radiology/Procedures Radiology/Procedures [address] [address] IMAGING REPORT Signed PATIENT: BOLIVAR JEFF ACCOUNT: [id number] : 1965 LOCATION: ER AGE: 52 SEX: M EXAM STATUS: REG ER ORD. PHYSICIAN: MERVAT NAGEL MD REASON: Hemoptysis, chest pain PROCEDURE: CHEST AP ONLY CHEST AP ONLY Clinical Indication: Hemoptysis, chest pain Comparison: AP chest December 12, 2017. Findings: The cardiomediastinal silhouette is normal. Stable nodule in the right lung base. Lungs are otherwise clear. There is no pneumothorax. No pleural effusion is appreciated. No acute bone abnormality. IMPRESSION: No acute cardiopulmonary process. Electronically signed by: Kenn Drake MD (03/05/2018 4:11 AM) [facility] DICTATED AND SIGNED BY: KENN DRAKE MD DATE: 03/05/18 0406 CC: SANDOVAL ROBERTS MD; MERVAT NAGEL MD ~ Course & Med Decision Making Course & Med Decision Making Emergency Department Course Patient presents with spitting up blood DDx- Upper GI bleeding, hemoptysis, bronchitis, epistaxis Patient was stable in the ED without recurrent bleeding. Patient had right dried anterior epistaxis. Neosporin was placed to both nostrils anteriorly. labs were remarkable for anemia , noting stable anemia from prior CBCs. PT/INR normal. CXR unremarkable. Stool heme negative. Patient epigastric pain improved after oral Protonix. He may have dyspepsia from swallowed blood. Patient was given results and advised to follow-up with ENT referral and PCP. Patient was given prescription for Protonix. Final Impression Final Impression Clinical impression Epistaxis Spitting up blood Chronic anemia Osler Kern Rendu syndrome Dragcindy Disclaimer Dragon Disclaimer This electronic medical record was generated, in whole or in part, using a voice recognition dictation system. Departure Departure: Impression: Primary Impression: Acute anterior epistaxis Additional Impressions: Spitting up blood Chronic anemia Rendu Osler Kern syndrome Disposition: 01 HOME, SELF-CARE Condition: STABLE Referrals: HEMANT MARTÍNEZ MD Follow-up tomorrow for further evaluation Additional Instructions: Follow-up with Dr. Parkinson. Call for an appointment tomorrow [facility] [address] [place] [address] If you develop recurrent bleeding, lightheadedness, difficulty breathing return to the emergency department for further evaluation Scripts Pantoprazole Sodium (PROTONIX) 40 Mg 40 MG PO DAILY for 20 Days, #20 PKT Prov: MERVAT NAGEL MD 03/05/18 MERVAT NAGEL MD Mar 05, 2018 03:19
[2018-03-05] MEDS ORDERED: PANTOPRAZOLE 40 MG TABLET. PO ONE (03:30)
[2018-03-05 03:58] LABS: FECAL OB PT NEGATIVE (NEG)
[2018-03-05 04:05] LABS: ALBUMIN 3.8 g/dL (3.4-5.0); ALBUMIN/GLOBULIN RATIO 1.1 (1.0-1.7); CALCIUM 8.6 mg/dL (8.5-10.1); GFR 79.1; POTASSIUM 3.9 mmol/L (3.5-5.1); TOTAL BILIRUBIN 0.4 mg/dL (0.2-1.0); TOTAL PROTEIN 7.2 g/dL (6.4-8.2)
[2018-03-05 04:14] LABS: BASO % 1 % (0-3); EOS # 0.1 x10^3/uL (0.0-0.7); EOS % 3 % (0-3); HEMATOCRIT 34.5 % (39.0-53.0); HEMOGLOBIN 9.9 g/dL (13.0-17.5); LYMPH # 2.2 x10^3/uL (1.0-4.8); LYMPH % 50 % (24-48); MEAN CORPUSCULAR HEMOGLOBIN 17 pg (25-35); MEAN CORPUSCULAR HGB CONC 29 g/dL (31-37); MEAN CORPUSCULAR VOLUME 61 fL (79-100); MONO # 0.2 x10^3/uL (0.0-1.1); MONO % 4 % (0-9); NEUT # 1.9 x10^3uL (1.8-7.7); NEUT % 42 % (31-73); PLATELET COUNT 426 x10^3/uL (140-400); RED BLOOD COUNT 5.69 x10^6/uL (4.30-5.70); RED CELL DISTRIBUTION WIDTH 20.4 % (11.5-14.5); WHITE BLOOD COUNT 4.5 x10^3/uL (4.0-11.0)
--- NOTE | 2018-03-05 04:14 | RAD ---
CHEST AP ONLY Clinical Indication: Hemoptysis, chest pain Comparison: AP chest December 12, 2017. Findings: The cardiomediastinal silhouette is normal. Stable nodule in the right lung base. Lungs are otherwise clear. There is no pneumothorax. No pleural effusion is appreciated. No acute bone abnormality. IMPRESSION: No acute cardiopulmonary process. Electronically signed by: Kenn Drake MD (03/05/2018 4:11 AM) [facility]
[2018-03-05] MEDS ORDERED: PANT40GR PO (04:25)
[2018-03-05 04:30] VITALS: BP 114/63
[2018-03-05 04:30] LABS: % BANDS 1 % (0-9); % BASOS 1 % (0-3); % EOS 1 % (0-5); % LYMPHS 27 % (24-48); % MONOS 4 % (0-10); % SEGS 66 % (35-66); PLT ESTIMATE INCREASED (ADEQUATE)
[2018-03-05 04:31] LABS: ANISOCYTOSIS SLIGHT; HYPOCHROMIA MOD; MICROCYTOSIS MOD; OVALOCYTES OCC; SPHEROCYTES OCC
== END 2018-03-05 04:33 | disposition home or self-care (01) ==
LOC: ER 03:03
DX: R04.2 Hemoptysis (principal); R04.0 Epistaxis; D64.89 Other specified anemias; I78.0 Hereditary hemorrhagic telangiectasia; Z88.6 Allergy status to analgesic agent
CPT/HCPCS: 36415; 71045; 80053; 82274; 83690; 85007; 85025; 85610; 85730; 99285-25

== ENCOUNTER 2018-04-05 17:04 | Inpatient (IN) | payer OTHER ==
[~2018-04-05] VITALS: Ht 172.7 cm; Wt 59.1 kg
[~2018-04-05 17:04] MED LIST changes: +PANT40GR PO
--- NOTE | 2018-04-05 17:37 | PHYS DOC ---
Past History Past Medical History: Anemia, GI Bleed, Schizophrenia, Other Additional Past Medical Histor: Bfdmi-Cejys-Kotni Dz, Past Surgical History: Tonsillectomy, Other Additional Past Surgical Histo: duodenal surg Smoking: Non-smoker Alcohol Use: None Drug Use: None Adult General Chief Complaint Chief Complaint: ANKLE PROBLEM HPI HPI 53-year-old male presents with left ankle pain. Patient states he has had intermittent pain in the last couple of weeks. He does not recall any specific injury or trauma. He has an erythematous area on the medial aspect of his left ankle. There are 3 small holes with spontaneous drainage. He tells me that on occasion there has been thick drainage. He admits that it has been pruritic at times and he has picked at it. He denies fever or chills at home. He has no other complaints. Review of Systems Review of Systems Constitutional: Denies fever or chills [] Eyes: Denies change in visual acuity, redness, or eye pain [] HENT: Denies nasal congestion or sore throat [] Respiratory: Denies cough or shortness of breath [] Cardiovascular: No additional information not addressed in HPI [] GI: Denies abdominal pain, nausea, vomiting, bloody stools or diarrhea [] : Denies dysuria or hematuria [] Musculoskeletal: Denies back pain or joint pain [] Integument: rash left ankle[] Neurologic: Denies headache, focal weakness or sensory changes [] Endocrine: Denies polyuria or polydipsia [] All other systems were reviewed and found to be within normal limits, except as documented in this note. Family History Family History not currently available Current Medications Current Medications See Nursing Allergies Allergies Allergies Coded Allergies Type Severity Reaction Last Updated Verified aspirin Allergy Intermediate bleeding 12/12/17 Yes Physical Exam Physical Exam Constitutional: Well developed, well nourished, no acute distress, non-toxic appearance. [] HENT: Normocephalic, atraumatic, bilateral external ears normal, oropharynx moist, no oral exudates, nose normal. [] Eyes: PERRLA, EOMI, conjunctiva normal, no discharge. [] Neck: Normal range of motion, no tenderness, supple, no stridor. [] Cardiovascular:Heart rate regular rhythm, no murmur [] Lungs & Thorax: Bilateral breath sounds clear to auscultation [] Abdomen: Bowel sounds normal, soft, no tenderness, no masses, no pulsatile masses. [] Skin: 8 cm erythematous rash of the medial left ankle with 3 areas of spontaneous drainage. No obvious purulent drainage at this time. [] Back: No tenderness, no CVA tenderness. [] Extremities: Lt. ankle tenderness, no cyanosis, no clubbing, ROM intact, no edema. [] Ulcer Lt ankle Neurologic: Alert and oriented X 3, normal motor function, normal sensory function, no focal deficits noted. [] Psychologic: Affect normal, judgement normal, mood normal. [] Current Patient Data Vital Signs Vital Signs Date Time Temp Pulse Resp B/P (MAP) Pulse Ox O2 Delivery O2 Flow Rate FiO2 04/05/18 17:04 97.5 72 16 98 Room Air EKG EKG [] Radiology/Procedures Radiology/Procedures My interpretation of ankle film shows no FOB, mild edema. [] Course & Med Decision Making Course & Med Decision Making Pertinent Labs and Imaging studies reviewed. (See chart for details) The patient's ankle certainly looks infected. I'm concerned with deeper tissue involvement. X-ray has been ordered as labs. I performed a wound culture. I will sign out this patient to Dr. Silva at 1800 as labs are pending. He will determine final treatment and disposition. US and Doppler pending at time of admission. Bone scan pending till am. Admit to Dr. Morris- Impression: 1. Veinous Stasis Ulcer. - Lt. ankle 2. Cellulitis Lt. ankle 3. Schizophrenia- 4. Hx. of Vsljg-Gyipu-Oerss Dz- 5. Hx. of GI bleeding with anticoagulation 6. Anemia- Microcytic Hypochromic 9.3 Hg. 7. Thrombocytosis 416 8. Ovalcytes, Tear qtt and Schstocytes. Dragon Disclaimer Dragon Disclaimer This electronic medical record was generated, in whole or in part, using a voice recognition dictation system. Departure Departure: Referrals: CRISS POWER MD (PCP) DONTAE MCLEAN DO Apr 05, 2018 17:37 KENDELL SILVA MD Apr 05, 2018 18:37
[2018-04-05] MEDS ORDERED: IV NORMAL SALINE 1,000ML 1,000 ML IV ONE (17:45)
[2018-04-05] MEDS ORDERED: ONDANSETRON PF 4 MG/2 ML VIAL. IV PRN (18:45)
[2018-04-05] MEDS ORDERED: TETANUS AND DIPHTHERIA TOX/PF 0.5 ML VIAL. VAX IM ONE (18:45)
[2018-04-05] MEDS ORDERED: SMZ/TMP 800/160MG TABLET. PO ONE (18:45)
[2018-04-05] MEDS ORDERED: cefTRIAXone SODIUM 1 GM VIAL IV ONE (18:54)
[2018-04-05] MEDS ORDERED: IV NORMAL SALINE 50ML 50 ML ONE (18:54)
[2018-04-05 18:57] LABS: BASO # 0.1 x10^3/uL (0.0-0.2); BASO % 1 % (0-3); EOS # 0.1 x10^3/uL (0.0-0.7); EOS % 1 % (0-3); HEMATOCRIT 32.6 % (39.0-53.0); HEMOGLOBIN 9.2 g/dL (13.0-17.5); LYMPH # 2.1 x10^3/uL (1.0-4.8); LYMPH % 39 % (24-48); MEAN CORPUSCULAR HEMOGLOBIN 17 pg (25-35); MEAN CORPUSCULAR HGB CONC 28 g/dL (31-37); MEAN CORPUSCULAR VOLUME 60 fL (79-100); MONO # 0.3 x10^3/uL (0.0-1.1); MONO % 5 % (0-9); NEUT % 54 % (31-73); PLATELET COUNT 416 x10^3/uL (140-400); RED BLOOD COUNT 5.39 x10^6/uL (4.30-5.70); RED CELL DISTRIBUTION WIDTH 21.2 % (11.5-14.5); WHITE BLOOD COUNT 5.5 x10^3/uL (4.0-11.0)
[2018-04-05 19:10] LABS: ALBUMIN/GLOBULIN RATIO 1.2 (1.0-1.7); CALCIUM 8.8 mg/dL (8.5-10.1); GFR 78.8; TOTAL BILIRUBIN 0.7 mg/dL (0.2-1.0); TOTAL PROTEIN 7.3 g/dL (6.4-8.2)
[2018-04-05 19:18] LABS: ANISOCYTOSIS MOD; HYPOCHROMIA MOD; PLT ESTIMATE ADEQUATE (ADEQUATE); POIKILOCYTOSIS MOD
[2018-04-05 19:19] LABS: OVALOCYTES MOD; SCHISTOCYTES FEW; TEAR DROP CELLS FEW
[2018-04-05 19:20] LABS: ACANTHOCYTES FEW; BIZZARE CELLS FEW
--- NOTE | 2018-04-05 20:10 | RAD ---
Left lower extremity venous duplex study 04/05/2018 Clinical History: Left leg ulcer. Technique: Using a combination of real time ultrasound imaging and color-flow and pulse Doppler imaging techniques along with graded compression and augmentation, duplex evaluation of the deep venous system of the left lower extremity was performed. Multiple images were obtained. Findings: There is no sonographic evidence of deep venous thrombosis involving the visualized deep venous structures of the left lower extremity. Impression: Negative study. Electronically signed by: Patrick Benitez MD (04/05/2018 8:07 PM) [facility]
--- NOTE | 2018-04-05 20:15 | RAD ---
Left lower extremity arterial duplex study 04/05/2018 CLINICAL HISTORY: Left leg ulcer. TECHNIQUE: Using a combination of real-time ultrasound imaging and color-flow and pulse doppler imaging techniques, duplex evaluation of the major deep venous structures of the left lower extremity was performed. Multiple images were obtained. FINDINGS: Mild to moderate atheromatous/atherosclerotic plaque formation is seen scattered throughout the major arterial structures of the left lower extremity. Normal triphasic arterial waveforms are seen throughout the major arterial structures of left lower extremity. The peak systolic velocities taper normally. No area of stenosis or occlusion is seen. IMPRESSION: Mild to moderate atheromatous/atherosclerotic plaque formation is seen throughout the major arterial structures of the left lower extremity. No hemodynamically significant stenosis or area of occlusion is seen. Electronically signed by: Patrick Benitez MD (04/05/2018 8:11 PM) [facility]
--- NOTE | 2018-04-05 20:21 | RAD ---
Three-view left ankle radiographs 04/05/2018 CLINICAL HISTORY: Left ankle pain. AP, lateral and oblique digital radiographs of the left ankle were obtained. The left ankle mortise is intact. Soft tissue swelling is seen adjacent to the medial malleolus of the left ankle. No fracture or dislocation of the left ankle is seen. Mild enthesophyte formation is seen involving the posterior aspect of the left calcaneus. Degenerative changes are seen involving the left ankle. IMPRESSION: No acute osseous abnormality is seen. Electronically signed by: Patrick Benitez MD (04/05/2018 8:17 PM) [facility]
[2018-04-05 21:00] VITALS: BP 117/74
[2018-04-05 23:17] VITALS: BP 108/64
[2018-04-06 04:26] VITALS: BP 108/68
[2018-04-06] MEDS: SMZ/TMP 800/160MG TABLET. PO SCH ×2 (08:32→22:13)
[2018-04-06 10:17] VITALS: BP 112/72
--- NOTE | 2018-04-06 11:47 | HP ---
ADMIT DATE: 04/05/2018 HISTORY OF PRESENT ILLNESS: The patient is a 53-year-old male patient, who came to the Emergency Room complaining of left ankle pain. The patient stated that he has had intermittent pain in the last couple of weeks. He does not recall any specific injury or trauma. He has an erythematous area on the medial aspect of his left ankle. There are 3 small holes with spontaneous drainage. He tells me that on occasion there has been thick drainage. He admits that it has been pruritic at times and he has picked at it. He denies any fever or chills at home, has no other complaint, was evaluated in the Emergency Room and was admitted with diagnosis of left lower extremity cellulitis on top of venous stasis ulcers. PAST MEDICAL HISTORY: Significant for chronic schizophrenia, Nwfgi-Kgnuo-Kisap disease, recurrent GI bleed. He has microcytic hypochromic anemia, thrombocytosis and ovalocytosis. He has also hypothyroidism as well as Raynaud's phenomenon. PAST SURGICAL HISTORY: Significant for tonsillectomy, periumbilical hernia, teeth extraction, esophagogastroduodenoscopy, and colonoscopy. ALLERGIES: He is allergic to ASPIRIN. MEDICATIONS: He is on Abilify injection monthly. He does not take anything by mouth. FAMILY HISTORY: He has 2 brothers, 1 older and 1 younger. His voice tells him when to talk to them and when not talk to them. His has not seen his father since 1985. His mother at the age of 66 because of diverticulitis. SOCIAL HISTORY: He is single, has no children, has never . He does not smoke, drink alcohol, or use any recreational drugs. He is on disability. REVIEW OF SYSTEMS: The patient denied any blurring of vision, cataract, glaucoma or macular degeneration. Denied any earache, tinnitus or sensorineural deafness. Denied any nosebleeds, stuffy nose or postnasal drip. Denied any sore throat, sore tongue, toothache, hoarseness of voice or difficulty swallowing. Denied any nausea, vomiting, diarrhea or constipation. Denied any hematemesis, melena or hematochezia. Denied any dysuria, frequency or hematuria. Denied any chest pain, shortness of breath, orthopnea, paroxysmal nocturnal dyspnea. PHYSICAL EXAMINATION: GENERAL: On examining him, he looked somewhat pale, but no jaundice, cyanosis, or thyromegaly. No jugular venous distension. No limb edema. VITAL SIGNS: His heart rate was 72, blood pressure was 122/67, temperature was 97.5, respiratory rate was 16, and oxygen saturation was 98%. HEAD, EYES, EARS, NOSE AND THROAT: Showed normocephalic, atraumatic. NECK: Supple. HEART: Showed normal first and second sounds. No gallop, rub or murmur. CHEST: Clear to auscultation. No crepitation or rhonchi. ABDOMEN: Slightly distended, soft, nontender. No guarding or rigidity. No organomegaly. All hernial orifice intact. Bowel sounds normal. NEUROLOGIC: He is awake, alert, responding appropriately. He has a very slow monotonous voice, also has expression in his face. However, all his cranial nerves are intact. EXTREMITIES: He moves extremities without difficulty, ambulates without assistance or assistive devices. He has no evidence of any tremors or rigidity. LABORATORY DATA: On admission showed a white cell count 5500, hemoglobin was 9.2, hematocrit 32.6, MCV 60 and platelet count of 416,000. Serum sodium was 139, potassium 4, chloride 103, bicarbonate 26, anion gap of 10, BUN 16, creatinine 1, estimated GFR was 79 mL per minute. His glucose was 57, calcium was 8.8. Total bilirubin, AST, ALT, alkaline phosphatase were normal. Total protein was 7.3, albumin was 4. He did have an x-ray of his left ankle, which showed that the left ankle mortise is intact. Soft tissue swelling is seen adjacent to the medial malleolus of left ankle. No fracture or dislocation of the left ankle is seen. Mild enthesophyte formation is seen involving the posterior aspect of the left calcaneus. Degenerative changes are seen involving the left ankle. Did have a CT and lower extremity venous Doppler ultrasound, which showed that there is no sonographic evidence of deep vein thrombosis involving the visualized deep venous structures of the left lower extremity and the arterial Doppler ultrasound showed that there is jceo-nd-[id number] atheromatous atherosclerotic plaque formation is seen throughout the major arterial structure of the left lower extremity, no hemodynamically significant stenosis or areas of occlusion is seen. ASSESSMENT AND PLAN: The patient was admitted with cellulitis and was started on IV ceftriaxone as well as trimethoprim sulfamethoxazole by mouth, has had an order for bone scan. We will continue with IV antibiotic and decide on further management accordingly. LEONA BOSCH MD DR: MAYITO/jyoti JOB#: [id number] / [id number]
[2018-04-06 14:48] VITALS: BP 115/54
--- NOTE | 2018-04-06 17:02 | RAD ---
EXAM: Triple phase bone scintigraphy. HISTORY: Nonhealing foot wound. Saline as. Assess for osteomyelitis. COMPARISON: April 05, 2018. FINDINGS: 22 mCi technetium 99m MDP was administered intravenously. Scintigraphic images of the feet and ankles were obtained in angiographic, immediate and delayed phases. Angiographic images demonstrate increased perfusion about the left ankle in comparison with the right. Blood pool images demonstrate a similar pattern of activity. However, pattern appears reversed on the delayed images, with diffusely increased activity about the right ankle, which is scintigraphically marked at the toes. No anterior acquisitions are available. Only lateral acquisitions were obtained. IMPRESSION: 1. Findings consistent with cellulitis about the left ankle. No clear underlying osseous uptake to suggest osteomyelitis on lateral projections. 2. Delayed osseous uptake about the right ankle is of unclear etiology. This may be posttraumatic or reflect a stress reaction. Comparison with radiographs is recommended. Electronically signed by: Ava Briones MD (04/06/2018 4:59 PM) [facility]
[2018-04-06 19:40] VITALS: BP 113/65
[2018-04-06] MEDS: LACTOBACILLUS RHAMNOSUS GG 1 CAPSULE. PO SCH (22:13)
--- NOTE | 2018-04-06 22:31 | PN ---
DATE: 04/06/2018 SUBJECTIVE: The patient is resting, slightly propped up in bed, in no apparent respiratory distress. He is awake, alert. On questioning him, he continued to complain of some tenderness in his left ankle joint. Denied any chills, rigors or fever. OBJECTIVE: GENERAL: On examining him, he looked pale, but no jaundice, cyanosis, lymphadenopathy or thyromegaly. No jugular venous distention. No lower limb edema. VITAL SIGNS: Her heart rate was 82, blood pressure was 145/87, temperature was 97.5, respiratory rate 20, and oxygen saturation was 98%. HEAD, EYES, EARS, NOSE AND THROAT: Normocephalic, atraumatic. NECK: Supple. HEART: Showed normal first and second heart sounds with no gallop, rub or murmur. CHEST: Clear to auscultation. No crepitation or rhonchi. ABDOMEN: Distended, soft, nontender. No guarding or rigidity. No organomegaly. Hernial orifices intact. Bowel sounds normal. NEUROLOGIC: He was awake, alert, responding appropriately. All cranial nerves intact. He moves extremities without difficulty, ambulates without assistance or assistive devices. His intake over the last 24 hours was 1360, no output was recorded. LABORATORY DATA: No lab work was done this morning. ASSESSMENT: 1. Left lower extremity cellulitis, which he is on Rocephin and Bactrim. 2. Chronic schizophrenia for which he is on Abilify. 3. Uctah-Sxepw-Bggdn with severe iron-deficiency anemia, with severe microcytic hypochromic anemia. He has also reactive thrombocytosis. He is also known to have Raynaud's phenomenon, hypothyroidism. PLAN: My plan is to continue with the IV antibiotic and oral Bactrim. We will check his sed rate and C-reactive protein, await the result of the bone scan and check also his iron studies as well as thyroid function test. LEONA BOSCH MD DR: MAYITO/jyoti JOB#: [id number] / [id number]
[2018-04-06 22:57] VITALS: BP 114/69
[2018-04-07 05:23] VITALS: BP 105/64
[2018-04-07] MEDS: LACTOBACILLUS RHAMNOSUS GG 1 CAPSULE. PO SCH ×2 (08:13→20:15)
[2018-04-07] MEDS: SMZ/TMP 800/160MG TABLET. PO SCH ×2 (08:13→20:15)
[2018-04-07 10:34] VITALS: BP 102/63
[2018-04-07 15:22] VITALS: BP 100/63
[2018-04-07 20:00] VITALS: BP 121/75
[2018-04-07 23:50] VITALS: BP 96/64
[2018-04-08 06:01] VITALS: BP 101/64
[2018-04-08 07:22] LABS: HEMATOCRIT 36.1 % (39.0-53.0); HEMOGLOBIN 10.5 g/dL (13.0-17.5); RED BLOOD COUNT 6.04 x10^6/uL (4.30-5.70); RED CELL DISTRIBUTION WIDTH 21.8 % (11.5-14.5); WHITE BLOOD COUNT 4.4 x10^3/uL (4.0-11.0)
[2018-04-08 07:38] LABS: ALBUMIN 4.2 g/dL (3.4-5.0); ALBUMIN/GLOBULIN RATIO 1.1 (1.0-1.7); C REACTIVE PROTEIN 8.8 mg/L (0-3.3); CALCIUM 9.2 mg/dL (8.5-10.1); CREATININE 1.2 mg/dL (0.7-1.3); GFR 63.8; POTASSIUM 4.2 mmol/L (3.5-5.1); TOTAL BILIRUBIN 0.4 mg/dL (0.2-1.0); TOTAL PROTEIN 8.2 g/dL (6.4-8.2)
[2018-04-08] MEDS: LACTOBACILLUS RHAMNOSUS GG 1 CAPSULE. PO SCH ×2 (08:47→21:19)
[2018-04-08] MEDS: SMZ/TMP 800/160MG TABLET. PO SCH ×2 (08:47→21:19)
--- NOTE | 2018-04-08 10:36 | PN ---
DATE: 04/07/2018 SUBJECTIVE: The patient is sitting on the edge of the bed comfortably in no apparent distress. He did continue to complain of some discomfort in the medial aspect of left ankle and left leg, some erythema and soft tissue swelling. He did have a bone scan done yesterday, which basically showed findings consistent with cellulitis about the left ankle. No clear underlying osseous uptake to suggest osteomyelitis on the lateral projection, has delayed ____ about the right ankle is of unclear etiology. This may be posttraumatic or reflect a stress reaction, comparison with radiograph recommended. PHYSICAL EXAMINATION: GENERAL: When I examined him, he looked somewhat pale, but no jaundice, cyanosis, or thyromegaly. No jugular venous distension. No limb edema. VITAL SIGNS: His heart rate was 64, blood pressure was 102/63, temperature was 97.9, respiratory rate 20, and oxygen saturation was 100% on room air. HEAD, EYES, EARS, NOSE, AND THROAT: Showed normocephalic, atraumatic. NECK: Supple. HEART: Showed normal first and second heart sounds with no gallop, rub, or murmur. CHEST: Clear to auscultation. No crepitation or rhonchi. ABDOMEN: Distended, soft, nontender. No guarding or rigidity. No organomegaly. All hernial orifices intact. Bowel sounds normal. NEUROLOGIC: He is awake, alert, responding at times appropriately. All his cranial nerves are intact. He moves all extremities without difficulty, ambulates without assistance or assistive devices. Examination of the left leg compared to the right showed there is marked soft tissue swelling and erythema on the medial aspect of left ankle joint consistent with cellulitis. His intake was 1360, no output was recorded. LABORATORY DATA: Showed white cell count of 5.5, hemoglobin 9.2, hematocrit 32, MCV 60, and platelet count of 116,000. His chemistry showed a BUN of 16, creatinine 1. ASSESSMENT AND PLAN: 1. Left ankle cellulitis, on Rocephin and Bactrim. 2. Chronic schizophrenia, which he is on Abilify. 3. 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 4. Reactive thrombocytosis. 5. Raynaud's phenomenon. 6. Hypothyroidism. I did order his thyroid function, the result of which is still pending. LEONA BOSCH MD DR: Maynor JOB#: [id number] / [id number]
[2018-04-08 11:00] VITALS: BP 111/68
[2018-04-08 16:00] VITALS: BP 112/72
[2018-04-08 19:34] VITALS: BP 108/70
[2018-04-08 22:46] VITALS: BP 117/74
--- NOTE | 2018-04-09 01:57 | PN ---
DATE: 04/08/2018 SUBJECTIVE: The patient is resting, slightly propped up in bed, in no apparent distress. Awake, alert. On questioning him, he continued to complain of pain when he walks, but denied any chills, rigors or fever. Nursing staff did not voice any concern. PHYSICAL EXAMINATION: GENERAL: When I examined him, he looked pale, cachectic, but no jaundiced, cyanosed, lymphadenopathy, or thyromegaly. No jugular venous distension. No lower limb edema. VITAL SIGNS: His heart rate was 62, blood pressure was 101/64, temperature was 97.6, respiratory rate was 18, and oxygen saturation was 99% on room air. HEAD, EYES, EARS, NOSE AND THROAT: Showed normocephalic, atraumatic. NECK: Supple. HEART: Showed normal first and second heart sounds with no gallop, rub or murmur. CHEST: Clear to auscultation. No crepitation or rhonchi. ABDOMEN: Scaphoid, soft, and nontender. NEUROLOGIC: He is awake, alert, responding appropriately, although at times, he is confused. All his cranial nerves are intact. He moves extremities without difficulty. Examination of the medial aspect of left ankle joints where the soft tissue swelling is much less, erythema also is fading slowly, not yet completely. His intake and output incompletely recorded. LABORATORY DATA: Her lab work this morning showed a white cell count of 4400, hemoglobin 10.5, hematocrit 36, MCV 60, and platelet count of 463,000. His chemistry showed a serum sodium 136, potassium 4.2, chloride 102, bicarbonate 27, anion gap of 7, BUN 10, creatinine 1.2, estimated GFR was 64 mL per minute, his glucose was 71. Calcium was 9.2. Total bilirubin, AST, ALT are normal. Alkaline phosphatase slightly elevated. His C-reactive protein was 8.8 mg/dL. Calcium was 8.2. Total protein was 8.2, albumin was 4.2. So far, the culture of his wound showed many gram-positive cocci. The identification and sensitivity is still pending at the time of this dictation. ASSESSMENT: 1. Left lower extremity cellulitis. 2. Chronic schizophrenia. 3. Bjjgf-Fyras-Ciwbq syndrome with severe iron deficiency anemia and marked microcytosis. He has also reactive thrombocytosis. The patient is also known to have Raynaud's phenomenon and hypothyroidism. PLAN: Plan is to continue with intravenous antibiotic and oral Bactrim. Unfortunately, the patient voices tell him not to take his oral medication. I did order his thyroid function test, the result of which is still pending at the time of this dictation as well as the iron studies. His C-reactive protein was 8.8 mg/dL; however, sedimentation rate was 0. LEONA BOSCH MD DR: MAYITO/jyoti JOB#: [id number] / [id number]
[2018-04-09 06:19] VITALS: BP 98/63
[2018-04-09] MEDS: SMZ/TMP 800/160MG TABLET. PO SCH ×2 (09:04→21:02)
[2018-04-09] MEDS: LACTOBACILLUS RHAMNOSUS GG 1 CAPSULE. PO SCH ×2 (09:04→21:02)
[2018-04-09] MEDS ORDERED: IRON SUCROSE COMPLEX 200 MG in IV NORMAL SALINE 100ML 100 ML IV ONE (10:30)
[2018-04-09 14:25] VITALS: BP 108/70
[2018-04-09 18:39] VITALS: BP 120/68
[2018-04-09 23:06] VITALS: BP 120/78
[2018-04-09 23:13] LABS: THYROXINE 5.4 ug/dL (4.5-12.0)
--- NOTE | 2018-04-10 04:08 | PN ---
DATE: 04/09/2018 SUBJECTIVE: The patient is resting slightly propped up in bed, in no apparent distress. He denied any complaint. The nursing staff did not voice any concerns that he had an uneventful night, given that he has schizophrenia and he walks a lot, a decision was made to keep him one more day to continue the IV antibiotic and hopefully discharge him home with home health if possible. PHYSICAL EXAMINATION: GENERAL: When I examined him this morning, he looked well and was clearly in no apparent respiratory distress. No pallor, jaundice, cyanosis, or thyromegaly. No jugular venous distension. No lower limb edema. VITAL SIGNS: Her heart rate was 65, blood pressure was 98/63, temperature was 97.8, respiratory rate was 16, and oxygen saturation was 98%. HEAD, EYES, EARS, NOSE, AND THROAT: Showed normocephalic, atraumatic. NECK: Supple. HEART: Showed normal first and second heart sounds with no gallop, rub, or murmur. CHEST: Clear to auscultation. No crepitation or rhonchi. ABDOMEN: Distended, soft, nontender. No guarding or rigidity. No organomegaly. All hernial orifice intact. Bowel sounds normal. NEUROLOGIC: He was awake, alert, responding appropriately. All cranial nerves intact. He moves extremities without difficulty, ambulates without assistance or assistive devices. The erythema and soft tissue swelling on the inner aspect of left ankle joint is much improved. His intake over the last 24 hours was 1900, output 1700. His serum iron 16, TIBC was 405. Iron saturation was 4 and serum ferritin was 5, all consistent with severe iron deficiency anemia. PLAN: My plan is to continue with IV antibiotic. I will start him on Venofer and hopefully discharge him home tomorrow to continue with oral antibiotic. His TSH is slightly elevated. I will check also his T3 and free T4 and decide on further management accordingly. LEONA BOSCH MD DR: MAYITO/jyoti JOB#: [id number] / [id number]
[2018-04-10 05:54] VITALS: BP 107/70
[2018-04-10] MEDS: SMZ/TMP 800/160MG TABLET. PO SCH (09:00)
[2018-04-10] MEDS: LACTOBACILLUS RHAMNOSUS GG 1 CAPSULE. PO SCH (09:00)
[2018-04-10] MEDS ORDERED: SULF1TAB23 PO (11:12)
[2018-04-10] MEDS ORDERED: LEVO25TA55 PO (11:18)
[2018-04-10] MEDS ORDERED: IRON SUCROSE COMPLEX 500 MG in IV NORMAL SALINE 250ML 250 ML IV ONE (12:00)
--- NOTE | 2018-04-10 20:10 | DS ---
DATE OF DISCHARGE: 04/10/2018 HOSPITAL COURSE: The patient is a 53-year-old male patient, who was admitted with increasing redness, swelling and pain in his left lower extremity, mostly around the medial aspect of left ankle joint. He was treated with IV Rocephin and Bactrim, all the most of the soft tissue swelling has completely resolved and erythema has faded, but has not completely resolved. His wound culture has finally grown methicillin-resistant Staphylococcus aureus, susceptible to trimethoprim sulfamethoxazole and he was also found to be severely iron deficient as he is known to have hereditary hemorrhagic telangiectasia. In fact, his serum iron is only 16, TIBC was 405 and serum ferritin was only 5 and therefore, the patient was given IV Venofer and has he remained hemodynamically stable and afebrile with normal white cell count. A decision was made to discharge him home to continue to finish the treatment as an outpatient with Bactrim-DS 1 tablet twice a day for 5 more days. PHYSICAL EXAMINATION: GENERAL: When I saw him today, he looked well and was clearly in no apparent respiratory distress, pale, but no jaundice, cyanosis, or thyromegaly. No jugular venous distention. No limb edema. VITAL SIGNS: His heart rate was 60, blood pressure was 107/70, temperature was 97.8, respiratory rate was 16, and oxygen saturation was 97%. HEAD, EYES, EARS, NOSE AND THROAT: Showed normocephalic and atraumatic. NECK: Supple. HEART: Showed normal first and second sounds. No gallop, rub or murmur. CHEST: Clear to auscultation. No crepitation or rhonchi. ABDOMEN: Distended, soft, and nontender. No guarding or rigidity. No organomegaly. Hernial orifice intact. Bowel sounds normal. NEUROLOGIC: He is awake, alert, responding appropriately. All his cranial nerves are intact. He moves all extremities without difficulty, ambulates without assistance or assistive devices. Examination of the skin in the medial aspect of left ankle joint showed all the swelling has completely subsided. The erythema is fading, but has not completely subsided. His intake was 2413. Output was recorded. LABORATORY DATA: His most recent lab work showed a white cell count 4400, hemoglobin 10, hematocrit 36, MCV 60 and platelet count of 463,000. His chemistry showed a serum sodium 136, potassium 4.2, chloride 102, bicarbonate 27, anion gap of 7, BUN 10, creatinine 1.2, estimated GFR was 64 mL per minute. His glucose was 71. Calcium was 9.2. His total bilirubin, AST and ALT are normal. Alkaline phosphatase slightly elevated. His C-reactive protein was 8.0 mg/dL. Total protein was 8.2 and albumin was 4.2. His serum iron was 16 mcg/dL. TIBC was 405 mcg/dL and iron saturation was only 4% with normal range of 15-34%. His serum ferritin was 5 ng/mL, normal range between 26-388. His TSH was also elevated at 6.040 and we did check his total T4, free T4 and total T3 and all the labs are consistent with hypothyroidism. DISCHARGE MEDICATIONS: The patient will be discharged home to continue on Sulfamethoxazole and Trimethoprim double strength 1 tablet twice a day for 5 more days. He will also be discharged on Synthroid 25 mcg once a day. FINAL DISCHARGE DIAGNOSES: Left lower extremity cellulitis, severe iron deficiency anemia, hypothyroidism, hereditary hemorrhagic telangiectasia and schizophrenia. LEONA BOSCH MD DR: MAYITO/jyoti JOB#: [id number] / [id number]
== END 2018-04-10 14:35 | disposition home or self-care (01) | DRG 603 ==
LOC: ER 17:04 → 1 SOUTH 18:30 → ER 20:34
PROVIDERS: ADMIT Internal Medicine; ATTEND Internal Medicine
DX: L03.116 Cellulitis of left lower limb (principal); L97.329 Non-pressure chronic ulcer of left ankle with unspecified severity; I78.0 Hereditary hemorrhagic telangiectasia; I73.00 Raynaud's syndrome without gangrene; F20.9 Schizophrenia, unspecified; E03.9 Hypothyroidism, unspecified; D50.9 Iron deficiency anemia, unspecified; L29.9 Pruritus, unspecified; B95.62 Methicillin resistant Staphylococcus aureus infection as the cause of diseases classified elsewhere; D64.9 Anemia, unspecified; Z79.899 Other long term (current) drug therapy; Z88.8 Allergy status to other drugs, medicaments and biological substances; I83.023 Varicose veins of left lower extremity with ulcer of ankle; Z90.49 Acquired absence of other specified parts of digestive tract; R79.89 Other specified abnormal findings of blood chemistry
CPT/HCPCS: 36415; 73610; 78315; 80053; 82728; 82947; 83540; 83550; 84436; 84439; 84443; 84480; 85025; 85027; 85651; 86140; 87070; 87186; 93926; 93971; A9503; J0696; J1756; J7050; 99285-25; J7030

== ENCOUNTER 2018-05-01 15:51 | Observation (INO) | payer OTHER ==
[~2018-05-01] VITALS: Ht 180.3 cm; Wt 55.5 kg
[~2018-05-01 15:51] MED LIST changes: +LEVO25TA55 PO; +SULF1TAB23 PO
[2018-05-01] MEDS ORDERED: DEXTROSE ORAL GEL 15 GM TUBE. ONE (16:04)
[2018-05-01] MEDS ORDERED: IV DEXTROSE 10% 500 ML IV ONE (16:15)
[2018-05-01 16:50] LABS: ALBUMIN 4.9 g/dL (3.4-5.0); ALBUMIN/GLOBULIN RATIO 1.3 (1.0-1.7); CALCIUM 8.9 mg/dL (8.5-10.1); CREATININE 1.1 mg/dL (0.7-1.3); GFR 70.6; POTASSIUM 4.7 mmol/L (3.5-5.1); TOTAL PROTEIN 8.7 g/dL (6.4-8.2)
--- NOTE | 2018-05-01 17:23 | PHYS DOC ---
Past History Past Medical History: Anemia, GI Bleed, Schizophrenia, Other Additional Past Medical Histor: Gcras-Vxogf-Tujhs Dz, Past Surgical History: Tonsillectomy, Other Additional Past Surgical Histo: duodenal surg Smoking: Non-smoker Alcohol Use: None Drug Use: None Adult General Chief Complaint Chief Complaint: HYPOGLYCEMIA HPI HPI Patient is a 53 year old male with history of schizophrenia and resident of assisted living home who brought in by EMS because of complaining of abdominal pain and hypoglycemia. Patient states he didn't eat anything since yesterday because hearing voices that telling him to not eat. Patient states he had abdominal pain and had generalized weakness. EMS reported that patient had blood sugar of 35 and had oral glucose. Patient had blood sugar of 46 at arrival to ER was alert and oriented and was able to answer out of the question. Patient denies suicidal and homicidal ideation. Review of Systems Review of Systems Constitutional: Denies fever or chills [] Eyes: Denies change in visual acuity, redness, or eye pain [] HENT: Denies nasal congestion or sore throat [] Respiratory: Denies cough or shortness of breath [] Cardiovascular: No additional information not addressed in HPI [] GI: Reports abdominal pain, denies nausea, vomiting, bloody stools or diarrhea [ ] : Denies dysuria or hematuria [] Musculoskeletal: Denies back pain or joint pain [] Integument: Denies rash or skin lesions [] Neurologic: Denies headache, focal weakness or sensory changes [] Endocrine: Denies polyuria or polydipsia [] All other systems were reviewed and found to be within normal limits, except as documented in this note. Current Medications Current Medications Current Medications Medications (Trade) Dose Ordered Sig/Tomasz Start Time Stop Time Status Last Admin Dose Admin Dextrose 500 ml @ 0 mls/hr 1X ONCE 05/01/18 16:15 05/01/18 16:16 DC 05/01/18 16:15 500 MLS/HR Glucose (Insta-Glucose) 15 gm STK-MED ONCE 05/01/18 16:04 05/01/18 16:05 DC Allergies Allergies Allergies Coded Allergies Type Severity Reaction Last Updated Verified aspirin Allergy Intermediate bleeding 12/12/17 Yes I S O L A T I O N *CONTACT* Allergy Unknown 04/10/18 Yes Physical Exam Physical Exam Constitutional: Mild distress, non-toxic appearance. [] HENT: Normocephalic, atraumatic Eyes: PERRLA, EOMI, conjunctiva normal, no discharge. [] Neck: Normal range of motion, no tenderness, supple, no stridor. [] Cardiovascular:Heart rate regular rhythm, no murmur [] Lungs & Thorax: Bilateral breath sounds clear to auscultation [] Abdomen: Bowel sounds normal, soft, no tenderness, no masses, no pulsatile masses. [] Skin: Warm, dry, no erythema, no rash. [] Back: No tenderness, no CVA tenderness. [] Extremities: No tenderness, no cyanosis, no clubbing, ROM intact, no edema. [] Neurologic: Alert and oriented X 3, normal motor function, normal sensory function, no focal deficits noted. [] Psychologic: Affect flat, mood normal. [] Current Patient Data Vital Signs Vital Signs Date Time Temp Pulse Resp B/P (MAP) Pulse Ox O2 Delivery O2 Flow Rate FiO2 05/01/18 16:26 97.4 63 22 100 Room Air Lab Results Laboratory Tests Test 05/01/18 16:15 Sodium Level 137 mmol/L (136-145) Potassium Level 4.7 mmol/L (3.5-5.1) Chloride Level 101 mmol/L (98-107) Carbon Dioxide Level 20 mmol/L (21-32) L Anion Gap 16 (6-14) H Blood Urea Nitrogen 22 mg/dL (8-26) Creatinine 1.1 mg/dL (0.7-1.3) Estimated GFR (Cockcroft-Gault) 70.6 BUN/Creatinine Ratio 20 (6-20) Glucose Level 58 mg/dL (70-99) L Calcium Level 8.9 mg/dL (8.5-10.1) Total Bilirubin 1.0 mg/dL (0.2-1.0) Aspartate Amino Transferase (AST) 48 U/L (15-37) H Alanine Aminotransferase (ALT) 32 U/L (16-63) Alkaline Phosphatase 106 U/L (46-116) Creatine Kinase 294 U/L (39-308) Total Protein 8.7 g/dL (6.4-8.2) H Albumin 4.9 g/dL (3.4-5.0) Albumin/Globulin Ratio 1.3 (1.0-1.7) Lipase 163 U/L (73-393) Ethyl Alcohol Level < 10 mg/dL (0-10) EKG EKG [] Radiology/Procedures Radiology/Procedures [] Course & Med Decision Making Course & Med Decision Making Pertinent Labs reviewed. (See chart for details) Evaluation of patient in ER showed 53-year-old male patient brought in by EMS because of hypoglycemia. Patient had blood sugar of 46 at arrival to ER and after starting IV fluid and bolus of D10% and oral glucose his blood sugar increased to more than 300. Because of hypoglycemia plan to admit patient. accepted admission at 1727. Dragon Disclaimer Dragon Disclaimer This electronic medical record was generated, in whole or in part, using a voice recognition dictation system. Departure Departure: Impression: Primary Impression: Hypoglycemia Additional Impressions: Schizophrenia Leukopenia Disposition: ADMITTED INPATIENT (at 1730) Admitting Physician: Other (Dr.Bradly Gupta accepted admission at 1727) Condition: IMPROVED Referrals: CRISS POWER MD (PCP) Problem Qualifiers SANJAY MARIE MD May 01, 2018 17:23
[2018-05-01 17:48] LABS: BASO % 1 % (0-3); EOS % 1 % (0-3); HEMATOCRIT 39.5 % (39.0-53.0); HEMOGLOBIN 11.6 g/dL (13.0-17.5); LYMPH % 27 % (24-48); MEAN CORPUSCULAR HEMOGLOBIN 20 pg (25-35); MEAN CORPUSCULAR HGB CONC 29 g/dL (31-37); MEAN CORPUSCULAR VOLUME 68 fL (79-100); MONO # 0.1 x10^3/uL (0.0-1.1); MONO % 3 % (0-9); NEUT # 2.5 x10^3uL (1.8-7.7); NEUT % 69 % (31-73); PLATELET COUNT 285 x10^3/uL (140-400); RED BLOOD COUNT 5.83 x10^6/uL (4.30-5.70); RED CELL DISTRIBUTION WIDTH 28.1 % (11.5-14.5); WHITE BLOOD COUNT 3.7 x10^3/uL (4.0-11.0)
[2018-05-01 17:53] LABS: BARBITURATES NEG (NEG); BENZODIAZEPINES NEG (NEG); CANNABINOIDS NEG (NEG); COCAINE NEG (NEG); METHADONE NEG (NEG); OPIATES NEG (NEG); PHENCYCLIDINE NEG (NEG)
[2018-05-01 17:56] LABS: AMPHETAMINE/METHAMPHETAMINE NEG (NEG)
[2018-05-01 17:58] LABS: BACTERIA,URINE 0 /HPF (0-FEW); BILIRUBIN,URINE NEG (NEG); CLARITY,URINE CLEAR; COLOR,URINE YELLOW; GLUCOSE,URINE >=1000 mg/dL (NEG); NITRITE,URINE NEG (NEG); RBC,URINE OCC /HPF (0-2); SQUAMOUS EPITHELIAL CELL,UR OCC /LPF; UROBILINOGEN,URINE 1 mg/dL (0.2 mg/dL); WBC,URINE 0 /HPF (0-4)
[2018-05-01 18:01] LABS: % LYMPHS 19 % (24-48); % MONOS 3 % (0-10); % SEGS 78 % (35-66)
[2018-05-01 18:02] LABS: HYPOCHROMIA MOD; PLT ESTIMATE ADEQUATE (ADEQUATE); POIKILOCYTOSIS MOD
[2018-05-01 18:03] LABS: ANISOCYTOSIS MOD; BURR CELLS FEW; MICROCYTOSIS MOD; OVALOCYTES MOD; TEAR DROP CELLS FEW
[2018-05-01 18:04] LABS: SCHISTOCYTES OCC
[2018-05-01 19:36] VITALS: BP 138/80
[2018-05-02 00:32] VITALS: BP 110/69
[2018-05-02 05:37] VITALS: BP 110/70
[2018-05-02] MEDS ORDERED: LEVOTHYROXINE 25 MCG TABLET. PO SCH (06:00)
[2018-05-02 06:06] LABS: CALCIUM 8.5 mg/dL (8.5-10.1); CREATININE 0.9 mg/dL (0.7-1.3); POTASSIUM 4.1 mmol/L (3.5-5.1)
[2018-05-02 10:46] VITALS: BP 111/73
--- NOTE | 2018-05-02 14:47 | PDOC1 ---
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 He called EMS initially due to generalized weakness and mild abdominal discomfort similar to hunger pain, all of which resolved quickly with oral and IV glucose. Patient has schizophrenia "the woman in my head told me not to eat... I been eating too much need to lose some of this gut." Patient denies cp/sob/n/v/travel/bad food exposure/bowel or bladder sx. I find him sitting up on his bed. He says he's been eating since he arrived here in the hospital and that he hasn't had discomfort or weakness overnight. Review of his blood sugars reveals they have been stable. Denies any current symptoms or complaints. 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 See HPI for pertinent positives and negative responses, other yadav all other systems are negative, non pertinent or non contributory Constitutional: Weakness; No: Fever, Chills Eyes: No: Double vision, Eye Pain, Photophobia ENT: No: Ear pain, Nose pain, Mouth pain Respiratory: No: Cough, Shortness of breath, SOB with excertion, Wheezing Cardiovascular: No: Chest Pain, Palpitations, Orthopnea, Edema Gastrointestinal: YES: Abdominal Pain; No: Nausea, Vomiting, Diarrhea, Constipation Musculoskeletal: No: Gait Disturbance, Joint Pain, Joint Swelling SKIN: YES: Warm, Dry, Other (recent healed LLE cellulitis) Neurological: No: Confusion, Headaches, Impaired Coord/balance, Memory Loss Medications Current Medications Glucose (Insta-Glucose) 15 gm STK-MED ONCE .ROUTE ; Start 05/01/18 at 16:04; Stop 05/01/18 at 16:05; Status DC Dextrose 500 ml @ 0 mls/hr 1X ONCE IV Last administered on 05/01/18at 16:15; Start 05/01/18 at 16:15; Stop 05/01/18 at 16:16; Status DC Levothyroxine Sodium (Synthroid) 25 mcg DAILY06 PO Last administered on at 05:28; Start 05/02/18 at 06:00 Active Scripts Active Synthroid (Levothyroxine Sodium) 25 Mcg Tablet 1 Tab PO DAILY Exam Vital Signs Vital Signs Date Time Temp Pulse Resp B/P (MAP) Pulse Ox O2 Delivery O2 Flow Rate FiO2 05/02/18 10:46 97.5 76 20 111/73 (86) 100 Room Air General Appearance: Alert, Oriented X3, Cooperative, No acute distress HEENT: Atraumatic, PERRLA, EOMI, Mucous membr. moist/pink Respiratory: Clear to auscultation, Normal air movement Heart: Regular rate, No murmurs Abdominal: Normal bowel sounds, Soft, No tenderness, No masses Extremities: No clubbing, No cyanosis, No edema, Other (skin changes medial left ankle c/w healed recent cellulitis) Skin: No breakdown (LLE skin changes as above) Neuro: Normal gait, Normal speech, Normal tone, Cranial nerves 3-12 NL Psych/Mental Status: Other (flat affect primarily one-word answers "yes, no" at baseline from my experience with him.) Assessment/Plan Assessment/Plan Hypoglycemia d/t decreased PO intake Abdominal pain and weakness 2nd above resolved with glucose/food Schizophrenia Zavfe-Rsoft-Yyjfh Syndrome Chronic anemia Discharge home, maintain consistent PO intake to avoid future problems of this nature. Patient expressed agreement/understanding. COURSE Allergies Coded Allergies Type Severity Reaction Last Updated Verified aspirin Allergy Intermediate bleeding 12/12/17 Yes I S O L A T I O N *CONTACT* Allergy Unknown 04/10/18 Yes Laboratory Tests Test 05/01/18 16:02 05/01/18 16:15 05/01/18 16:57 05/01/18 17:20 Glucose (Fingerstick) 46 mg/dL (70-99) 304 mg/dL (70-99) Sodium Level 137 mmol/L (136-145) Potassium Level 4.7 mmol/L (3.5-5.1) Chloride Level 101 mmol/L (98-107) Carbon Dioxide Level 20 mmol/L (21-32) Anion Gap 16 (6-14) Blood Urea Nitrogen 22 mg/dL (8-26) Creatinine 1.1 mg/dL (0.7-1.3) Estimated GFR (Cockcroft-Gault) 70.6 BUN/Creatinine Ratio 20 (6-20) Glucose Level 58 mg/dL (70-99) Calcium Level 8.9 mg/dL (8.5-10.1) Total Bilirubin 1.0 mg/dL (0.2-1.0) Aspartate Amino Transf (AST/SGOT) 48 U/L (15-37) Alanine Aminotransferase (ALT/SGPT) 32 U/L (16-63) Alkaline Phosphatase 106 U/L (46-116) Creatine Kinase 294 U/L (39-308) Total Protein 8.7 g/dL (6.4-8.2) Albumin 4.9 g/dL (3.4-5.0) Albumin/Globulin Ratio 1.3 (1.0-1.7) Lipase 163 U/L (73-393) Ethyl Alcohol Level < 10 mg/dL (0-10) Urine Collection Type Unknown Urine Color Yellow Urine Clarity Clear Urine pH 5.0 Urine Specific [place] 1.020 Urine Protein Neg (NEG-TRACE) Urine Glucose (UA) >=1000 mg/dL (NEG) Urine Ketones (Stick) >=160 mg/dL (NEG) Urine Blood Neg (NEG) Urine Nitrite Neg (NEG) Urine Bilirubin Neg (NEG) Urine Urobilinogen Dipstick 1 mg/dL (0.2 mg/dL) Urine Leukocyte Esterase Neg (NEG) Urine RBC Occ /HPF (0-2) Urine WBC 0 /HPF (0-4) Urine Squamous Epithelial Cells Occ /LPF Urine Bacteria 0 /HPF (0-FEW) Urine Opiates Screen Neg (NEG) Urine Methadone Screen Neg (NEG) Urine Barbiturates Neg (NEG) Urine Phencyclidine Screen Neg (NEG) Urine Amphetamine/Methamphetamine Neg (NEG) Urine Benzodiazepines Screen Neg (NEG) Urine Cocaine Screen Neg (NEG) Urine Cannabinoids Screen Neg (NEG) Urine Ethyl Alcohol Neg (NEG) Test 05/01/18 17:42 05/01/18 21:29 05/01/18 23:36 05/02/18 01:55 White Blood Count 3.7 x10^3/uL (4.0-11.0) Red Blood Count 5.83 x10^6/uL (4.30-5.70) Hemoglobin 11.6 g/dL (13.0-17.5) Hematocrit 39.5 % (39.0-53.0) Mean Corpuscular Volume 68 fL (79-100) Mean Corpuscular Hemoglobin 20 pg (25-35) Mean Corpuscular Hemoglobin Concent 29 g/dL (31-37) Red Cell Distribution Width 28.1 % (11.5-14.5) Platelet Count 285 x10^3/uL (140-400) Neutrophils (%) (Auto) 69 % (31-73) Lymphocytes (%) (Auto) 27 % (24-48) Monocytes (%) (Auto) 3 % (0-9) Eosinophils (%) (Auto) 1 % (0-3) Basophils (%) (Auto) 1 % (0-3) Neutrophils # (Auto) 2.5 x10^3uL (1.8-7.7) Lymphocytes # (Auto) 1.0 x10^3/uL (1.0-4.8) Monocytes # (Auto) 0.1 x10^3/uL (0.0-1.1) Eosinophils # (Auto) 0.0 x10^3/uL (0.0-0.7) Basophils # (Auto) 0.0 x10^3/uL (0.0-0.2) Segmented Neutrophils % 78 % (35-66) Lymphocytes % 19 % (24-48) Monocytes % 3 % (0-10) Platelet Estimate Adequate (ADEQUATE) Hypochromasia Mod Poikilocytosis Mod Anisocytosis Mod Microcytosis Mod Tear Drop Cells Few Ovalocytes Mod Ezekiel Cells Few Schistocytes Occ Glucose (Fingerstick) 82 mg/dL (70-99) 159 mg/dL (70-99) 108 mg/dL (70-99) Test 05/02/18 04:42 05/02/18 05:40 05/02/18 08:01 05/02/18 09:52 Glucose (Fingerstick) 89 mg/dL (70-99) 57 mg/dL (70-99) 72 mg/dL (70-99) Sodium Level 136 mmol/L (136-145) Potassium Level 4.1 mmol/L (3.5-5.1) Chloride Level 104 mmol/L (98-107) Carbon Dioxide Level 25 mmol/L (21-32) Anion Gap 7 (6-14) Blood Urea Nitrogen 18 mg/dL (8-26) Creatinine 0.9 mg/dL (0.7-1.3) Estimated GFR (Cockcroft-Gault) 89.0 Glucose Level 82 mg/dL (70-99) Calcium Level 8.5 mg/dL (8.5-10.1) Thyroid Stimulating Hormone (TSH) 2.837 uIU/mL (0.358-3.740) Test 05/02/18 11:51 Glucose (Fingerstick) 84 mg/dL (70-99) Current Medications Medications (Trade) Dose Ordered Sig/Tomasz Route PRN Reason Start Time Stop Time Status Last Admin Dose Admin Glucose (Insta-Glucose) 15 gm STK-MED ONCE .ROUTE 05/01/18 16:04 05/01/18 16:05 DC Dextrose 500 ml @ 0 mls/hr 1X ONCE IV 05/01/18 16:15 05/01/18 16:16 DC 05/01/18 16:15 Levothyroxine Sodium (Synthroid) 25 mcg DAILY06 PO 05/02/18 06:00 05/02/18 05:28 I & O 05/02/18 00:00 Intake Total 240 ml Balance 240 ml Orders Procedure Category Date Status Time Dextrose Oral Gel PHA 05/01/18 Complete (Insta-Glucose) 16:04 Continuous Pulse ER 05/01/18 Transmitted Oximetry 16:08 Saline Lock ER 05/01/18 Transmitted 16:08 Ua, Cult If Indicated LAB 05/01/18 Complete 16:08 Lipase LAB 05/01/18 Complete 16:08 Creatine Kinase LAB 05/01/18 Complete 16:08 Drugs Of Abuse Ur LAB 05/01/18 Complete 16:08 Comprehensive LAB 05/01/18 Complete Metabolic Panel 16:08 Pulse Oximetry: MILVIA 05/01/18 In Process Standing Order 16:08 Ethanol LAB 05/01/18 Complete 16:08 Iv Dextrose 10% PHA 05/01/18 Complete 16:15 Cbc W Autodiff LAB 05/01/18 Complete 17:42 Manual Differential LAB 05/01/18 Complete 17:42 Ed Bridge Order ADT 05/01/18 Transmitted 17:58 Code Status CODE 05/01/18 Transmitted 17:58 Vital Signs, Per MILVIA 05/01/18 In Process Protocol 17:58 Regular DIET 05/02/18 Transmitted Breakfast Glucose Poct Q 2 H MILVIA 05/01/18 In Process 17:58 Thyroid Stim Hormone LAB 05/02/18 Complete (Tsh) 05:00 Basic Metabolic Panel LAB 05/02/18 Complete 05:00 Levothyroxine PHA 05/02/18 In Process (Synthroid) 06:00 Hemoglobin A1c LAB 05/01/18 In Process 20:47 High Risk Dc CONS 05/01/18 Transmitted Readmission 21:39 Admit Orders ADT 05/02/18 Transmitted 14:22 Vital Signs Date Time Temp Pulse Resp B/P (MAP) Pulse Ox O2 Delivery O2 Flow Rate FiO2 05/02/18 10:46 97.5 76 20 111/73 (86) 100 Room Air LEXY WILLIS DO May 02, 2018 14:47
[2018-05-02 23:11] LABS: HEMOGLOBIN A1C 4.3 % (4.8-5.6)
== END 2018-05-02 15:50 | disposition home or self-care (01) ==
LOC: ER 15:51 → INTOOBSV 17:36 → 1 SOUTH 17:36
PROVIDERS: ADMIT Neuromusculoskeletal Medicine & OMM; ATTEND Neuromusculoskeletal Medicine & OMM
DX: E16.2 Hypoglycemia, unspecified (principal); D72.819 Decreased white blood cell count, unspecified; E03.9 Hypothyroidism, unspecified; F20.9 Schizophrenia, unspecified; I73.00 Raynaud's syndrome without gangrene; Z88.8 Allergy status to other drugs, medicaments and biological substances; Z79.899 Other long term (current) drug therapy; Z90.49 Acquired absence of other specified parts of digestive tract
CPT/HCPCS: 36415; 80048; 80053; 80307; 81001; 82550; 82947; 83036; 83690; 84443; 85007; 85025; 99285; G0378; G0379; G0480; J7060; 96365; 96366; G0479

== ENCOUNTER → 2018-05-20 | Outpatient (CLI) | payer OTHER ==
[2018-05-02 10:46] VITALS: BP 111/73
[2018-05-20 12:14] LABS: HEMATOCRIT 44.8 % (39.0-53.0); HEMOGLOBIN 13.3 g/dL (13.0-17.5); MEAN CORPUSCULAR HEMOGLOBIN 21 pg (25-35); MEAN CORPUSCULAR HGB CONC 30 g/dL (31-37); MEAN CORPUSCULAR VOLUME 71 fL (79-100); PLATELET COUNT 274 x10^3/uL (140-400); RED BLOOD COUNT 6.32 x10^6/uL (4.30-5.70); RED CELL DISTRIBUTION WIDTH 29.4 % (11.5-14.5); WHITE BLOOD COUNT 4.4 x10^3/uL (4.0-11.0)
[2018-05-20 12:46] LABS: ALBUMIN 4.1 g/dL (3.4-5.0); CALCIUM 8.9 mg/dL (8.5-10.1); GFR 78.8; POTASSIUM 4.4 mmol/L (3.5-5.1); TOTAL BILIRUBIN 0.4 mg/dL (0.2-1.0); TOTAL PROTEIN 8.1 g/dL (6.4-8.2)
[2018-05-20 12:55] LABS: % BANDS 1 % (0-9); % EOS 2 % (0-5); % LYMPHS 20 % (24-48); % MONOS 5 % (0-10); % SEGS 71 % (35-66)
[2018-05-20 12:58] LABS: ANISOCYTOSIS MOD; HYPOCHROMIA MOD; MICROCYTOSIS SLIGHT; OVALOCYTES MOD; PLT ESTIMATE ADEQUATE (ADEQUATE); SCHISTOCYTES OCC; TARGET CELLS OCC; TEAR DROP CELLS FEW
[2018-05-21 01:07] LABS: PROLACTIN 3.4 ng/mL (4.0-15.2)
[2018-05-21 12:59] LABS: FREE T4 0.83 ng/dL (0.76-1.46); THYROID STIM HORMONE (TSH) 4.735 uIU/mL (0.358-3.740)
== END | disposition home or self-care (01) ==
LOC: LAB 11:06
PROVIDERS: ATTEND Clinical Nurse Specialist Psychiatric/Mental Health, Adult
DX: Z79.899 Other long term (current) drug therapy (principal)
CPT/HCPCS: 36415; 80053; 80061; 84146; 84439; 84443; 84480; 85007; 85025

== ENCOUNTER 2018-05-23 09:16 | Emergency (ER) | payer OTHER ==
[~2018-05-23] VITALS: Ht 180.3 cm; Wt 59.4 kg
[2018-05-23] MEDS ORDERED: IV NORMAL SALINE 1,000ML 1,000 ML IV ONE (09:30)
--- NOTE | 2018-05-23 09:32 | PHYS DOC ---
Past History Past Medical History: Anemia, GI Bleed, Schizophrenia, Other Additional Past Medical Histor: Apvvt-Jtixz-Cocof Dz, Past Surgical History: Tonsillectomy, Other Additional Past Surgical Histo: duodenal surg Smoking: Non-smoker Alcohol Use: None Drug Use: None Adult General Chief Complaint Chief Complaint: BLOOD SUGAR PROBLEM [facility] HPI Patient is a 53-year-old male who presents with report of low blood sugar. Patient is well-known to this emergency room, having been seen for low blood sugar in the past. Patient has history of schizophrenia and frequently hears voices that tell him not to eat. Patient states that his last meal was yesterday at about 3 PM when he ate a ham sandwich. EMS reports that blood sugar was low and they gave him some IV dextrose and apple juice. Review of Systems Review of Systems Constitutional: Denies fever or chills [] Respiratory: Denies cough or shortness of breath [] Cardiovascular: No additional information not addressed in HPI [] GI: Denies abdominal pain, nausea, vomiting or diarrhea [] Neurologic: Denies headache, focal weakness or sensory changes [] Psychiatric: Patient reports to hearing voices telling him to not eat. [] All other systems were reviewed and found to be within normal limits, except as documented in this note. Current Medications Current Medications Current Medications Medications (Trade) Dose Ordered Sig/Tomasz Start Time Stop Time Status Last Admin Dose Admin Sodium Chloride 1,000 ml @ 1,000 mls/hr 1X ONCE 05/23/18 09:30 05/23/18 10:29 UNV Allergies Allergies Allergies Coded Allergies Type Severity Reaction Last Updated Verified aspirin Allergy Intermediate bleeding 12/12/17 Yes I S O L A T I O N *CONTACT* Allergy Unknown 04/10/18 Yes Physical Exam Physical Exam Constitutional: Well developed, well nourished, no acute distress, non-toxic appearance. [] HENT: Normocephalic, atraumatic, bilateral external ears normal, oropharynx dry , no oral exudates, nose normal. [] Eyes: PERRLA, EOMI, conjunctiva normal, no discharge. [] Neck: Normal range of motion, no tenderness, supple. [] Cardiovascular:Heart rate regular rhythm [] Lungs & Thorax: Bilateral breath sounds clear to auscultation [] Abdomen: Bowel sounds normal, soft, no tenderness. [] Skin: Warm, dry, no erythema, no rash. [] Extremities: No tenderness, no cyanosis, no clubbing, ROM intact, no edema. [] Neurologic: Alert and oriented, normal motor function, normal sensory function, no focal deficits noted. [] Psychologic: Flattened affect. [] EKG EKG [] Radiology/Procedures Radiology/Procedures [] Course & Med Decision Making Course & Med Decision Making Pertinent Labs and Imaging studies reviewed. (See chart for details) [] Dragon Disclaimer Dragon Disclaimer This electronic medical record was generated, in whole or in part, using a voice recognition dictation system. Departure Departure: Impression: Primary Impression: Hypoglycemia Disposition: HOME, SELF-CARE Condition: STABLE Referrals: CRISS POWER MD (PCP) Patient Instructions: Hypoglycemia (Low Blood Sugar) BOBBY PICKARD Jr. DO May 23, 2018 09:32
[2018-05-23 11:02] LABS: BACTERIA,URINE 0 /HPF (0-FEW); BILIRUBIN,URINE NEG (NEG); CLARITY,URINE CLEAR; COLOR,URINE YELLOW; GLUCOSE,URINE 250 mg/dL (NEG); HYALINE CASTS, URINE FEW /HPF; NITRITE,URINE NEG (NEG); RBC,URINE 0 /HPF (0-2); SQUAMOUS EPITHELIAL CELL,UR OCC /LPF; UROBILINOGEN,URINE 0.2 mg/dL (0.2 mg/dL); WBC,URINE 0 /HPF (0-4)
[2018-05-23 11:07] LABS: BASO % 1 % (0-3); EOS # 0.1 x10^3/uL (0.0-0.7); EOS % 1 % (0-3); HEMATOCRIT 41.8 % (39.0-53.0); HEMOGLOBIN 12.6 g/dL (13.0-17.5); LYMPH # 0.9 x10^3/uL (1.0-4.8); LYMPH % 18 % (24-48); MEAN CORPUSCULAR HEMOGLOBIN 21 pg (25-35); MEAN CORPUSCULAR HGB CONC 30 g/dL (31-37); MEAN CORPUSCULAR VOLUME 70 fL (79-100); MONO # 0.2 x10^3/uL (0.0-1.1); MONO % 4 % (0-9); NEUT # 3.5 x10^3uL (1.8-7.7); NEUT % 76 % (31-73); PLATELET COUNT 299 x10^3/uL (140-400); RED CELL DISTRIBUTION WIDTH 27.8 % (11.5-14.5); WHITE BLOOD COUNT 4.6 x10^3/uL (4.0-11.0)
[2018-05-23 11:20] LABS: ALBUMIN 4.4 g/dL (3.4-5.0); ALBUMIN/GLOBULIN RATIO 1.2 (1.0-1.7); CREATININE 1.2 mg/dL (0.7-1.3); GFR 63.8; TOTAL BILIRUBIN 0.6 mg/dL (0.2-1.0)
[2018-05-23 11:50] LABS: HYPOCHROMIA MOD; PLT ESTIMATE ADEQUATE (ADEQUATE)
[2018-05-23 11:51] LABS: ANISOCYTOSIS MOD; MICROCYTOSIS MOD; OVALOCYTES FEW; POIKILOCYTOSIS PRESENT; SCHISTOCYTES OCC; TEAR DROP CELLS OCC
[2018-05-23 13:15] VITALS: BP 113/63
== END 2018-05-23 13:00 | disposition home or self-care (01) ==
LOC: ER 09:16
DX: E16.2 Hypoglycemia, unspecified (principal); F20.9 Schizophrenia, unspecified; Z86.2 Personal history of diseases of the blood and blood-forming organs and certain disorders involving the immune mechanism; Z88.6 Allergy status to analgesic agent; Z91.041 Radiographic dye allergy status
CPT/HCPCS: 36415; 80053; 81001; 82947; 85025; 99285-25; J7030

== ENCOUNTER 2018-06-01 14:19 | Emergency (ER) | payer OTHER ==
[~2018-06-01] VITALS: Ht 180.3 cm; Wt 59.4 kg
[2018-06-01] MEDS ORDERED: IV NORMAL SALINE 1,000ML 1,000 ML IV ONE (14:30)
[2018-06-01 15:14] LABS: HEMATOCRIT 45.5 % (39.0-53.0); MEAN CORPUSCULAR HEMOGLOBIN 22 pg (25-35); MEAN CORPUSCULAR HGB CONC 31 g/dL (31-37); MEAN CORPUSCULAR VOLUME 70 fL (79-100); PLATELET COUNT 311 x10^3/uL (140-400); WHITE BLOOD COUNT 4.3 x10^3/uL (4.0-11.0)
[2018-06-01 15:28] LABS: ALBUMIN 4.6 g/dL (3.4-5.0); ALBUMIN/GLOBULIN RATIO 1.3 (1.0-1.7); CALCIUM 8.9 mg/dL (8.5-10.1); GFR 78.8; POTASSIUM 4.9 mmol/L (3.5-5.1); TOTAL BILIRUBIN 0.6 mg/dL (0.2-1.0); TOTAL PROTEIN 8.1 g/dL (6.4-8.2)
[2018-06-01 15:40] VITALS: BP 129/70
[2018-06-01 16:05] LABS: % LYMPHS 19 % (24-48); % MONOS 4 % (0-10); % SEGS 74 % (35-66)
[2018-06-01 16:08] LABS: PLT ESTIMATE ADEQUATE (ADEQUATE)
[2018-06-01 16:09] LABS: OVALOCYTES FEW; TARGET CELLS FEW
[2018-06-01 16:11] LABS: SCHISTOCYTES FEW
[2018-06-01 16:12] LABS: BURR CELLS FEW
[2018-06-01 16:14] LABS: % ATYL 3 % (0-0)
--- NOTE | 2018-06-01 16:29 | PHYS DOC ---
Past History Past Medical History: Anxiety, Bipolar, Schizophrenia Additional Past Medical Histor: Irjem-Apwzk-Giflh Dz, Past Surgical History: No Surgical History Additional Past Surgical Histo: duodenal surg Smoking: Non-smoker Alcohol Use: None Drug Use: None Adult General Chief Complaint Chief Complaint: BLOOD SUGAR PROBLEM HPI HPI 53-year-old male presents via EMS with low blood sugar. Patient is well-known to the ED. Was reported to have "in the 60s". He says he has not eaten since yesterday. He further reports some right-sided low back pain when he was walking earlier today, but states that this is completely resolved at this time. He denies any other complaints. Denies fever or chills. Review of Systems Review of Systems Constitutional: Denies fever or chills [] Eyes: Denies change in visual acuity, redness, or eye pain [] HENT: Denies nasal congestion or sore throat [] Respiratory: Denies cough or shortness of breath [] Cardiovascular: No additional information not addressed in HPI [] GI: Denies abdominal pain, nausea, vomiting, bloody stools or diarrhea [] : Denies dysuria or hematuria [] Musculoskeletal: Denies back pain or joint pain [] Integument: Denies rash or skin lesions [] Neurologic: Denies headache, focal weakness or sensory changes [] Endocrine: Denies polyuria or polydipsia [] All other systems were reviewed and found to be within normal limits, except as documented in this note. Current Medications Current Medications Current Medications Medications (Trade) Dose Ordered Sig/Tomasz Start Time Stop Time Status Last Admin Dose Admin Sodium Chloride 1,000 ml @ 1,000 mls/hr 1X ONCE 06/01/18 14:30 06/01/18 15:29 DC 06/01/18 14:30 1,000 MLS/HR Allergies Allergies Allergies Coded Allergies Type Severity Reaction Last Updated Verified aspirin Allergy Intermediate bleeding 12/12/17 Yes I S O L A T I O N *CONTACT* Allergy Unknown 04/10/18 Yes Physical Exam Physical Exam Constitutional: Well developed, well nourished, no acute distress, non-toxic appearance. [] HENT: Normocephalic, atraumatic, bilateral external ears normal, oropharynx moist, no oral exudates, nose normal. [] Eyes: PERRLA, EOMI, conjunctiva normal, no discharge. [] Neck: Normal range of motion, no tenderness, supple, no stridor. [] Cardiovascular:Heart rate regular rhythm, no murmur [] Lungs & Thorax: Bilateral breath sounds clear to auscultation [] Abdomen: Bowel sounds normal, soft, no tenderness, no masses, no pulsatile masses. [] Skin: Warm, dry, no erythema, no rash. [] Back: No tenderness, no CVA tenderness. [] Extremities: No tenderness, no cyanosis, no clubbing, ROM intact, no edema. [] Neurologic: Alert and oriented X 3, normal motor function, normal sensory function, no focal deficits noted. [] Psychologic: Affect normal, judgement normal, mood normal. [] Current Patient Data Vital Signs Vital Signs Date Time Temp Pulse Resp B/P (MAP) Pulse Ox O2 Delivery O2 Flow Rate FiO2 06/01/18 15:40 98.6 62 16 100 Lab Results Laboratory Tests Test 06/01/18 14:28 06/01/18 14:45 06/01/18 14:46 Glucose (Fingerstick) 63 mg/dL (70-99) L White Blood Count 4.3 x10^3/uL (4.0-11.0) Red Blood Count 6.50 x10^6/uL (4.30-5.70) H Hemoglobin 14.0 g/dL (13.0-17.5) Hematocrit 45.5 % (39.0-53.0) Mean Corpuscular Volume 70 fL (79-100) L Mean Corpuscular Hemoglobin 22 pg (25-35) L Mean Corpuscular Hemoglobin Concent 31 g/dL (31-37) Red Cell Distribution Width 28.0 % (11.5-14.5) H Platelet Count 311 x10^3/uL (140-400) Neutrophils (%) (Auto) % (31-73) Lymphocytes (%) (Auto) % (24-48) Monocytes (%) (Auto) % (0-9) Eosinophils (%) (Auto) % (0-3) Basophils (%) (Auto) % (0-3) Neutrophils # (Auto) x10^3uL (1.8-7.7) Lymphocytes # (Auto) x10^3/uL (1.0-4.8) Monocytes # (Auto) x10^3/uL (0.0-1.1) Eosinophils # (Auto) x10^3/uL (0.0-0.7) Basophils # (Auto) x10^3/uL (0.0-0.2) Segmented Neutrophils % 74 % (35-66) H Lymphocytes % 19 % (24-48) L Atypical Lymphocytes % (Manual) 3 % (0-0) H Monocytes % 4 % (0-10) Platelet Estimate Adequate (ADEQUATE) Target Cells Few Ovalocytes Few Ezekiel Cells Few Schistocytes Few Sodium Level 138 mmol/L (136-145) Potassium Level 4.9 mmol/L (3.5-5.1) Chloride Level 100 mmol/L (98-107) Carbon Dioxide Level 27 mmol/L (21-32) Anion Gap 11 (6-14) Blood Urea Nitrogen 21 mg/dL (8-26) Creatinine 1.0 mg/dL (0.7-1.3) Estimated GFR (Cockcroft-Gault) 78.8 BUN/Creatinine Ratio 21 (6-20) H Glucose Level 88 mg/dL (70-99) Calcium Level 8.9 mg/dL (8.5-10.1) Total Bilirubin 0.6 mg/dL (0.2-1.0) Aspartate Amino Transferase (AST) 32 U/L (15-37) Alanine Aminotransferase (ALT) 22 U/L (16-63) Alkaline Phosphatase 108 U/L (46-116) Total Protein 8.1 g/dL (6.4-8.2) Albumin 4.6 g/dL (3.4-5.0) Albumin/Globulin Ratio 1.3 (1.0-1.7) EKG EKG [] Radiology/Procedures Radiology/Procedures [] Course & Med Decision Making Course & Med Decision Making Pertinent Labs and Imaging studies reviewed. (See chart for details) The patient's blood sugar by the laboratory is 88. Patient was given a liter of normal saline. Rest of his labs are unremarkable. We gave him a sandwich to eat. He is feeling well this time. He is stable for discharge. [] Dragon Disclaimer Dragon Disclaimer This electronic medical record was generated, in whole or in part, using a voice recognition dictation system. Departure Departure: Referrals: CRISS POWER MD (PCP) DONTAE MCLEAN DO Jun 01, 2018 16:29
== END 2018-06-01 16:30 | disposition home or self-care (01) ==
LOC: ER 14:19
DX: E16.2 Hypoglycemia, unspecified (principal); F41.9 Anxiety disorder, unspecified; F31.9 Bipolar disorder, unspecified; I78.0 Hereditary hemorrhagic telangiectasia; F20.9 Schizophrenia, unspecified; Z88.6 Allergy status to analgesic agent; Z91.041 Radiographic dye allergy status
CPT/HCPCS: 36415; 80053; 82947; 85007; 85025; 99283; 99284; J7030

== ENCOUNTER 2018-06-02 15:39 | Emergency (ER) | payer OTHER ==
[~2018-06-02] VITALS: Ht 180.3 cm; Wt 59.4 kg
--- NOTE | 2018-06-02 16:25 | RAD ---
HIEN, 06/02/2018: HISTORY: Right flank pain and vomiting Comparison is made to a study from December 13, 2017. There is a moderate amount gas in large and small bowel. The gas extends distally into the rectosigmoid. There is no evidence of organomegaly. A lower pelvic calcification on the left is probably a phlebolith. IMPRESSION: Increased gas in large and small bowel suggesting a mild generalized ileus. Electronically signed by: Crow Fisher MD (06/02/2018 4:21 PM) [facility]
[2018-06-02 16:46] LABS: BACTERIA,URINE 0 /HPF (0-FEW); BILIRUBIN,URINE NEG (NEG); CLARITY,URINE HAZY; COLOR,URINE YELLOW; GLUCOSE,URINE NEG (NEG); NITRITE,URINE NEG (NEG); RBC,URINE OCC /HPF (0-2); UROBILINOGEN,URINE 0.2 mg/dL (0.2 mg/dL)
--- NOTE | 2018-06-02 17:33 | PHYS DOC ---
Past History Past Medical History: Anxiety, Bipolar, Schizophrenia Additional Past Medical Histor: Kxauw-Rjnqk-Jmabf Dz, Past Surgical History: No Surgical History Additional Past Surgical Histo: duodenal surg Smoking: Non-smoker Alcohol Use: None Drug Use: None Adult General Chief Complaint Chief Complaint: FLANK PAIN [facility] HPI 53-year-old male presents with right flank pain. The patient is well-known to the ED. The pain he is a sharp pinching sensation. Patient states that the pain as a 2 out of 10 and intermittent. He denies nausea, vomiting, diarrhea. He admits that he only has a bowel movement every couple of days. He denies fever or chills. He denies dysuria or urinary frequency. Review of Systems Review of Systems Constitutional: Denies fever or chills [] Eyes: Denies change in visual acuity, redness, or eye pain [] HENT: Denies nasal congestion or sore throat [] Respiratory: Denies cough or shortness of breath [] Cardiovascular: No additional information not addressed in HPI [] GI: Denies abdominal pain, nausea, vomiting, bloody stools or diarrhea [] : Denies dysuria or hematuria [] Musculoskeletal: Right flank pain[] Integument: Denies rash or skin lesions [] Neurologic: Denies headache, focal weakness or sensory changes [] Endocrine: Denies polyuria or polydipsia [] All other systems were reviewed and found to be within normal limits, except as documented in this note. Allergies Allergies Allergies Coded Allergies Type Severity Reaction Last Updated Verified aspirin Allergy Intermediate bleeding 12/12/17 Yes I S O L A T I O N *CONTACT* Allergy Unknown 04/10/18 Yes Physical Exam Physical Exam Constitutional: Well developed, well nourished, no acute distress, non-toxic appearance. [] HENT: Normocephalic, atraumatic, bilateral external ears normal, oropharynx moist, no oral exudates, nose normal. [] Eyes: PERRLA, EOMI, conjunctiva normal, no discharge. [] Neck: Normal range of motion, no tenderness, supple, no stridor. [] Cardiovascular:Heart rate regular rhythm, no murmur [] Lungs & Thorax: Bilateral breath sounds clear to auscultation [] Abdomen: Bowel sounds normal, soft, no tenderness, no masses, no pulsatile masses. [] Skin: Warm, dry, no erythema, no rash. [] Back: No tenderness, no CVA tenderness. [] Extremities: No tenderness, no cyanosis, no clubbing, ROM intact, no edema. [] Neurologic: Alert and oriented X 3, normal motor function, normal sensory function, no focal deficits noted. [] Psychologic: Affect normal, judgement normal, mood normal. [] Current Patient Data Vital Signs Vital Signs Date Time Temp Pulse Resp B/P (MAP) Pulse Ox O2 Delivery O2 Flow Rate FiO2 06/02/18 17:19 50 16 126/80 (95) 98 Room Air 06/02/18 15:46 97.8 Lab Results Laboratory Tests Test 06/02/18 15:56 Urine Collection Type Unknown Urine Color Yellow Urine Clarity Hazy Urine pH 5.5 Urine Specific [place] >=1.030 Urine Protein 30 mg/dl (NEG-TRACE) Urine Glucose (UA) Neg mg/dL (NEG) Urine Ketones (Stick) 15 mg/dL (NEG) Urine Blood Neg (NEG) Urine Nitrite Neg (NEG) Urine Bilirubin Neg (NEG) Urine Urobilinogen Dipstick 0.2 mg/dL (0.2 mg/dL) Urine Leukocyte Esterase Mod (NEG) Urine RBC Occ /HPF (0-2) Urine WBC 11-20 /HPF (0-4) Urine Squamous Epithelial Cells None /LPF Urine Bacteria 0 /HPF (0-FEW) Urine Mucus Marked /LPF EKG EKG [] Radiology/Procedures Radiology/Procedures [] Impressions: KUB, 06/02/2018: HISTORY: Right flank pain and vomiting Comparison is made to a study from December 13, 2017. There is a moderate amount gas in large and small bowel. The gas extends distally into the rectosigmoid. There is no evidence of organomegaly. A lower pelvic calcification on the left is probably a phlebolith. IMPRESSION: Increased gas in large and small bowel suggesting a mild generalized ileus. Electronically signed by: Crow Fisher MD (06/02/2018 4:21 PM) [facility] DICTATED AND SIGNED BY: CROW FISHER MD DATE: 06/02/18 [id number] CC: DONTAE MCLEAN DO; CRISS POWER MD Course & Med Decision Making Course & Med Decision Making Pertinent Labs and Imaging studies reviewed. (See chart for details) The patient's urinalysis shows white cells, but no bacteria. I will not treat him for UTI. His KUB shows considerable gas and small and large bowel. This is suggestive of ileus. The patient does not fill prescriptions were given to him. I will give him simethicone and Reglan prior to discharge. [] Dragon Disclaimer Dragon Disclaimer This electronic medical record was generated, in whole or in part, using a voice recognition dictation system. Departure Departure: Referrals: CRISS POWER MD (PCP) DONTAE MCLEAN DO Jun 02, 2018 17:33
[2018-06-02] MEDS: METOCLOPRAMIDE 10 MG TABLET PO ONE (17:42)
[2018-06-02] MEDS: SIMETHICONE 80 MG TAB.CHEW PO STA (17:43)
[2018-06-02] MEDS: cefTRIAXone IM 1 GM VIAL IM ONE (18:11)
[2018-06-02 18:15] VITALS: BP 126/80
== END 2018-06-02 18:17 | disposition home or self-care (01) ==
LOC: ER 15:39
DX: R82.998 Other abnormal findings in urine (principal); R14.3 Flatulence; R11.10 Vomiting, unspecified; F41.9 Anxiety disorder, unspecified; F20.9 Schizophrenia, unspecified; F31.9 Bipolar disorder, unspecified; I78.0 Hereditary hemorrhagic telangiectasia; Z88.6 Allergy status to analgesic agent; Z91.041 Radiographic dye allergy status
CPT/HCPCS: 74018; 81001; 87086; 96372; 99284; J0696; J8597

== ENCOUNTER 2018-07-14 16:46 | Emergency (ER) | payer OTHER ==
[2018-07-14 17:28] LABS: BILIRUBIN,URINE NEG (NEG); CLARITY,URINE CLEAR; COLOR,URINE YELLOW; GLUCOSE,URINE NEG (NEG); NITRITE,URINE NEG (NEG); UROBILINOGEN,URINE 0.2 mg/dL (0.2 mg/dL)
[2018-07-14] MEDS ORDERED: PHEN100T82 PO (17:32)
--- NOTE | 2018-07-14 17:32 | PHYS DOC ---
Past History Past Medical History: Anxiety, Bipolar, Schizophrenia Additional Past Medical Histor: Afprk-Uackt-Pwvqe Dz, Past Surgical History: No Surgical History Additional Past Surgical Histo: duodenal surg Smoking: Non-smoker Alcohol Use: None Drug Use: None Adult General Chief Complaint Chief Complaint: PAIN ON URINATION [facility] HPI Patient is a 53 year old male who presents with complaining of hurting during urination that started today. Patient denies fever and chills, abdominal pain, nausea and vomiting, hematuria. Review of Systems Review of Systems Constitutional: Denies fever or chills [] Eyes: Denies change in visual acuity, redness, or eye pain [] HENT: Denies nasal congestion or sore throat [] Respiratory: Denies cough or shortness of breath [] Cardiovascular: No additional information not addressed in HPI [] GI: Denies abdominal pain, nausea, vomiting, bloody stools or diarrhea [] : Denies hematuria, reports urinary dysuria Musculoskeletal: Denies back pain or joint pain [] Integument: Denies rash or skin lesions [] Neurologic: Denies headache, focal weakness or sensory changes [] Endocrine: Denies polyuria or polydipsia [] All other systems were reviewed and found to be within normal limits, except as documented in this note. Allergies Allergies Allergies Coded Allergies Type Severity Reaction Last Updated Verified aspirin Allergy Intermediate bleeding 12/12/17 Yes I S O L A T I O N *CONTACT* Allergy Unknown 04/10/18 Yes Physical Exam Physical Exam Constitutional: Well nourished, no acute distress, non-toxic appearance. [] HENT: Normocephalic Eyes: PERRLA, EOMI, conjunctiva normal, no discharge. [] Neck: Normal range of motion, no tenderness, supple, no stridor. [] Cardiovascular:Heart rate regular rhythm, no murmur [] Lungs & Thorax: Bilateral breath sounds clear to auscultation [] Abdomen: Bowel sounds normal, soft, no tenderness, no masses, no pulsatile masses. [] Skin: Warm, dry, no erythema, no rash. [] Back: No tenderness, no CVA tenderness. [] Extremities: No tenderness, no cyanosis, no clubbing, ROM intact, no edema. [] Neurologic: Alert and oriented X 3, normal motor function, normal sensory function, no focal deficits noted. [] Current Patient Data Vital Signs Vital Signs Date Time Temp Pulse Resp B/P (MAP) Pulse Ox O2 Delivery O2 Flow Rate FiO2 07/14/18 16:50 97.5 57 20 100 Room Air EKG EKG [] Radiology/Procedures Radiology/Procedures [] Course & Med Decision Making Course & Med Decision Making Pertinent Labs reviewed. (See chart for details) Evaluation of patient in ER showed 53-year-old male patient with history of schizoaffective disorder and frequent emergency room visits presented to ER with complaining of dysuria that started today. Patient asking for food at arrival to ER. Patient had unremarkable abdominal exam and UA. Plan discharge patient home with diagnose of dysuria. Dragon Disclaimer Dragon Disclaimer This electronic medical record was generated, in whole or in part, using a voice recognition dictation system. Departure Departure: Impression: Primary Impression: Dysuria Disposition: 01 HOME, SELF-CARE (at 1730) Condition: STABLE Referrals: CRISS POWER MD (PCP) Patient Instructions: Dysuria Additional Instructions: Drink plenty of liquids Follow-up with your primary care physician in 3-5 days Return to ER if not getting better Scripts Phenazopyridine Hcl (PYRIDIUM) 100 Mg Tablet 100 MG PO BID for dysuria, #6 TAB Prov: SANJAY MARIE MD 07/14/18 SANJAY MARIE MD Jul 14, 2018 17:32
[2018-07-14 18:25] VITALS: BP 110/70
== END 2018-07-14 18:25 | disposition home or self-care (01) ==
LOC: ER 16:46
DX: R30.0 Dysuria (principal); F41.9 Anxiety disorder, unspecified; F20.9 Schizophrenia, unspecified; F31.9 Bipolar disorder, unspecified; Z88.6 Allergy status to analgesic agent; Z91.041 Radiographic dye allergy status
CPT/HCPCS: 81003; 99282

== ENCOUNTER 2018-07-17 11:18 | Inpatient (IN) | payer OTHER ==
[~2018-07-17] VITALS: Ht 180.3 cm; Wt 56.0 kg
[~2018-07-17 11:18] MED LIST changes: +PHEN100T82 PO
--- NOTE | 2018-07-17 11:31 | PHYS DOC ---
Past History Past Medical History: Anxiety, Bipolar, Schizophrenia Additional Past Medical Histor: Utllc-Efzrm-Huyhw Dz, Past Surgical History: No Surgical History Additional Past Surgical Histo: duodenal surg Smoking: Non-smoker Alcohol Use: None Drug Use: None Adult General Chief Complaint Chief Complaint: WEAKNESS/GENERALIZED HPI HPI Patient is a 53 year old male who presents with weakness. Patient was brought in by EMS who found that his blood sugar was 31. They administered glucose in improved his blood sugar to the 60s. Patient reports that the voices due to his schizophrenia, told him not to eat. Patient is not diabetic, taking no diabetes medicines. Uncertain as to how long this has been going on. Patient denies any suicidal or homicidal ideation. Denies any cough or fever. Reports that he is taking his medication for schizophrenia. [] Review of Systems Review of Systems Constitutional: Denies fever or chills [] Eyes: Denies change in visual acuity, redness, or eye pain [] HENT: Denies nasal congestion or sore throat [] Respiratory: Denies cough or shortness of breath [] Cardiovascular: No chest pain or palpitations[] GI: Denies abdominal pain, nausea, vomiting, bloody stools or diarrhea [] : Denies dysuria or hematuria [] Musculoskeletal: Denies back pain or joint pain [] Integument: Denies rash or skin lesions [] Neurologic: Denies headache, focal weakness or sensory changes [] Endocrine: Denies polyuria or polydipsia [] All other systems were reviewed and found to be within normal limits, except as documented in this note. Allergies Allergies Allergies Coded Allergies Type Severity Reaction Last Updated Verified aspirin Allergy Intermediate bleeding 12/12/17 Yes I S O L A T I O N *CONTACT* Allergy Unknown 04/10/18 Yes Physical Exam Physical Exam Constitutional: Well developed, cachectic, no acute distress, non-toxic appearance. [] HENT: Normocephalic, atraumatic, bilateral external ears normal, oropharynx moist, no oral exudates, nose normal. [] Eyes: PERRLA, EOMI, conjunctiva normal, no discharge. [] Neck: Normal range of motion, no tenderness, supple, no stridor. [] Cardiovascular:Heart rate regular rhythm, no murmur [] Lungs & Thorax: Bilateral breath sounds clear to auscultation [] Abdomen: Bowel sounds normal, soft, no tenderness, no masses, no pulsatile masses. [] Skin: Warm, dry, no erythema, no rash. [] Back: No tenderness, no CVA tenderness. [] Extremities: No tenderness, no cyanosis, no clubbing, ROM intact, no edema. [] Neurologic: Alert and oriented X 3, normal motor function, normal sensory function, no focal deficits noted. [] Psychologic: Affect flat, judgement poor. No suicidal or homicidal ideation.[] Current Patient Data Lab Results Laboratory Tests Test 07/17/18 11:22 Glucose (Fingerstick) 38 mg/dL (70-99) *L EKG EKG EKG shows a sinus rhythm at 64 bpm, normal axis, QTC of 410 ms, no ST elevations ,[] Radiology/Procedures Radiology/Procedures EXAM: Chest, single view. HISTORY: Weakness. COMPARISON: None. FINDINGS: A frontal view of the chest is obtained. There is no infiltrate, pleural effusion or pneumothorax. The heart is normal in size. IMPRESSION: No acute pulmonary finding.[] Course & Med Decision Making Course & Med Decision Making Pertinent Labs and Imaging studies reviewed. (See chart for details) ED course: Patient arrived, was placed in bed, it was noted to be again hypoglycemic so was given juice initially and then several "box lunches" which he ingested without any difficulty along with nutritional shake. His sugar in increased to the 160s after these interventions and an amp of D50 due to the previous low blood sugar however over the course of watching him for the next several hours he continued to do dwindle first into the 80s into the 60s despite continued efforts at feeding. Due to the hypoglycemia that's persistent , consultation was made with the hospitalist service for admission. Medical decision making: There is no evidence of an infection, believe this low blood sugar to be due to patient's habitus along with just not ingesting adequate calories. This is complicated by his history of schizophrenia and the voices telling him not to eat.[] Dragon Disclaimer Dragon Disclaimer This electronic medical record was generated, in whole or in part, using a voice recognition dictation system. Departure Departure: Impression: Primary Impression: Weakness Additional Impressions: Hypoglycemia Malnutrition Schizophrenia Disposition: 09 ADMITTED INPATIENT Admitting Physician: Srinivasan Morris Condition: STABLE Referrals: CRISS POWER MD (PCP) Problem Qualifiers Additional Impressions: Malnutrition Malnutrition type: protein-calorie malnutrition Protein-calorie malnutrition severity: unspecified severity Qualified Codes: E46 - Unspecified protein- calorie malnutrition Schizophrenia Schizophrenia type: unspecified Qualified Codes: F20.9 - Schizophrenia, unspecified VÍCTOR FLORES DO Jul 17, 2018 11:31
[2018-07-17] MEDS ORDERED: DEXTROSE 50% 25 GM / 50ML DISP.SYRIN. IV ONE ×2 (11:36→11:45)
[2018-07-17] MEDS ORDERED: MVI, ADULT NO.4 WITH VIT K 10 ML, FOLIC ACID SYRINGE for ER 1 MG, THIAMINE INJ 100 MG i... IV ONE ×4 (11:45)
--- NOTE | 2018-07-17 11:54 | EKG ---
[address] [address] Test Date: 2018-07-17 Test Time: 11:47:18 Pat Name: BOLIVAR JEFF Department: Room: Gender: M [employer]ement [employer]or: : 1965 Requested By: VÍCTOR FLORES Order Number: [id number] Reading MD: Pito Dowell Measurements Intervals [place] Rate: 64 P: 49 NC: 138 QRS: 46 QRSD: 84 T: 61 QT: 394 QTc: 410 Interpretive Statements SINUS RHYTHM NORMAL ECG Electronically Signed On 07-21-2018 9:38:48 VOICE COACH by Pito Dowell
--- NOTE | 2018-07-17 12:05 | RAD ---
EXAM: Chest, single view. HISTORY: Weakness. COMPARISON: None. FINDINGS: A frontal view of the chest is obtained. There is no infiltrate, pleural effusion or pneumothorax. The heart is normal in size. IMPRESSION: No acute pulmonary finding. Electronically signed by: Saida Mahajan MD (07/17/2018 12:01 PM) [place] [id number]
[2018-07-17 12:06] LABS: BASO # 0.1 x10^3/uL (0.0-0.2); BASO % 1 % (0-3); EOS # 0.1 x10^3/uL (0.0-0.7); EOS % 2 % (0-3); HEMOGLOBIN 13.5 g/dL (13.0-17.5); LYMPH # 0.6 x10^3/uL (1.0-4.8); LYMPH % 12 % (24-48); MEAN CORPUSCULAR HEMOGLOBIN 23 pg (25-35); MEAN CORPUSCULAR HGB CONC 31 g/dL (31-37); MEAN CORPUSCULAR VOLUME 76 fL (79-100); MONO # 0.2 x10^3/uL (0.0-1.1); MONO % 5 % (0-9); NEUT # 3.8 x10^3uL (1.8-7.7); NEUT % 80 % (31-73); PLATELET COUNT 333 x10^3/uL (140-400); RED BLOOD COUNT 5.81 x10^6/uL (4.30-5.70); RED CELL DISTRIBUTION WIDTH 22.3 % (11.5-14.5); WHITE BLOOD COUNT 4.8 x10^3/uL (4.0-11.0)
[2018-07-17 12:28] LABS: ALBUMIN 4.1 g/dL (3.4-5.0); ALBUMIN/GLOBULIN RATIO 1.1 (1.0-1.7); CALCIUM 8.9 mg/dL (8.5-10.1); GFR 78.8; MAGNESIUM 2.3 mg/dL (1.8-2.4); POTASSIUM 4.7 mmol/L (3.5-5.1); TOTAL BILIRUBIN 0.6 mg/dL (0.2-1.0); TOTAL PROTEIN 7.8 g/dL (6.4-8.2)
[2018-07-17 12:29] LABS: AMPHETAMINE/METHAMPHETAMINE NEG (NEG); BARBITURATES NEG (NEG); BENZODIAZEPINES NEG (NEG); CANNABINOIDS NEG (NEG); COCAINE NEG (NEG); METHADONE NEG (NEG); OPIATES NEG (NEG); PHENCYCLIDINE NEG (NEG)
[2018-07-17 12:32] LABS: BILIRUBIN,URINE NEG (NEG); CLARITY,URINE CLEAR; COLOR,URINE YELLOW; GLUCOSE,URINE >=1000 mg/dL (NEG); NITRITE,URINE NEG (NEG); RBC,URINE 0 /HPF (0-2); UROBILINOGEN,URINE 0.2 mg/dL (0.2 mg/dL)
[2018-07-17 12:33] LABS: BACTERIA,URINE 0 /HPF (0-FEW); SQUAMOUS EPITHELIAL CELL,UR FEW /LPF; WBC,URINE OCC /HPF (0-4)
[2018-07-17 14:28] LABS: ANISOCYTOSIS SLIGHT; PLT ESTIMATE ADEQUATE (ADEQUATE); POLYCHROMASIA SLIGHT
[2018-07-17 14:29] LABS: OVALOCYTES MOD; SCHISTOCYTES OCC; TARGET CELLS OCC
[2018-07-17] MEDS ORDERED: IV DEXTROSE 5% - 0.9 % NACL 1,000 ML IV ONE (15:15)
[2018-07-17] MEDS ORDERED: ONDANSETRON PF 4 MG/2 ML VIAL. IV PRN (16:00)
[2018-07-17] MEDS ORDERED: ACETAMINOPHEN 325 MG TABLET PO PRN (16:00)
[2018-07-17] MEDS ORDERED: IV DEXTROSE 10% 1,000 ML IV ONE (17:15)
[2018-07-17 17:35] VITALS: BP 116/70
[2018-07-17] MEDS ORDERED: ARIP400S IM (18:18)
--- NOTE | 2018-07-17 18:36 | NUR ---
The patient, BOLIVAR JEFF, 53 y/o, M admitted by LEONA BOSCH MD, was given written information regarding hospital policies, unit procedures and contact persons. Patient admitted to room 119 from the ED and arrived at approx. 1715 via EMS. Valuables were checked and left in room with patient. Per patient request, wallet and keys sent to the safe. Vital signs assessed and head-to-toe assessment performed. Patient's blood sugar checked and dinner tray given. Continue to monitor.
[2018-07-17 19:10] VITALS: BP 106/69
[2018-07-17 22:42] VITALS: BP 109/69
[2018-07-18 05:23] VITALS: BP 115/72
[2018-07-18 06:35] LABS: BASO % 1 % (0-3); EOS # 0.1 x10^3/uL (0.0-0.7); EOS % 3 % (0-3); HEMATOCRIT 34.5 % (39.0-53.0); LYMPH # 0.8 x10^3/uL (1.0-4.8); LYMPH % 14 % (24-48); MEAN CORPUSCULAR HEMOGLOBIN 23 pg (25-35); MEAN CORPUSCULAR HGB CONC 32 g/dL (31-37); MEAN CORPUSCULAR VOLUME 73 fL (79-100); MONO # 0.4 x10^3/uL (0.0-1.1); MONO % 8 % (0-9); NEUT # 4.5 x10^3uL (1.8-7.7); NEUT % 75 % (31-73); PLATELET COUNT 296 x10^3/uL (140-400); RED BLOOD COUNT 4.72 x10^6/uL (4.30-5.70); RED CELL DISTRIBUTION WIDTH 21.6 % (11.5-14.5)
[2018-07-18 06:38] LABS: CALCIUM 8.2 mg/dL (8.5-10.1); CREATININE 0.9 mg/dL (0.7-1.3); POTASSIUM 4.1 mmol/L (3.5-5.1)
[2018-07-18 10:55] VITALS: BP 99/62
--- NOTE | 2018-07-18 13:38 | HP ---
ADMIT DATE: 07/17/2018 HISTORY OF PRESENT ILLNESS: The patient is a 53-year-old male patient who was brought by the EMS as he was found with a low blood sugar of 31 and generalized weakness. They administered glucose that improved his blood sugar to round about in the 60s. The patient reported that the voices told him not to eat. He is not diabetic and takes no oral hypoglycemic agent. It is difficult to know how long he has not eaten. He denied any suicidal or homicidal ideation. Denied any cough or fever. When he arrived, he is on Abilify 400 mg intramuscular once a month and he said he took his Abilify on 07/14/2018. He was extensively investigated in the Emergency Room and was found to have hypoglycemia with the blood sugar initially at 38 mg/dL. He was given D50, a banana bag and continued D5 at 125 mL and by the time he arrived to the floor, his blood sugar was 149. PAST MEDICAL HISTORY: Significant for chronic schizophrenia. He is known to have Cdjvg-Heujq-Azeom disease, and recurrent GI bleed. He has microcytic hypochromic anemia, thrombocytosis and ovalocytosis. He also has hypothyroidism as well as Raynaud's phenomenon. PAST SURGICAL HISTORY: Significant for tonsillectomy, periumbilical hernia repair, teeth extraction, esophagogastroduodenoscopy, and colonoscopy. ALLERGIES: He is allergic to ASPIRIN. MEDICATIONS: He is on Abilify injection monthly. He does not take any other medication by mouth. FAMILY HISTORY: He has 2 brothers, 1 older and 1 younger. His voice tells him when to talk with them and when not talk with them. According to him, he has not seen his father since 1985. His mother at the age of 66 because of diverticulitis. SOCIAL HISTORY: He is single, has no children, has never . He does not smoke, drink alcohol, or use any recreational drugs. He is on disability. PHYSICAL EXAMINATION: GENERAL: On examining him on arrival, he looked pale, somewhat cachectic, but not jaundiced or cyanosed. No lymphadenopathy. No thyromegaly. No jugular venous distention. No lower limb edema. VITAL SIGNS: His heart rate was 66, blood pressure was 114/74, temperature was 97.7, respiratory rate was 18, and oxygen saturation was 100% on room air. HEAD, EYES, EARS, NOSE, AND THROAT: Showed normocephalic, atraumatic. NECK: Supple. HEART: Showed normal first and second heart sounds with no gallop, rub, or murmur. CHEST: Clear to auscultation. No crepitation or rhonchi. ABDOMEN: Scaphoid, soft, nontender. NEUROLOGIC: He was awake, alert, responding appropriately. All cranial nerves intact. He moves extremities without difficulty. LABORATORY DATA: Lab work on arrival showed a white cell count of 4800, hemoglobin 13.5, hematocrit 44, MCV 76, and platelet count of 333,000 with normal manual differential. His chemistry showed a serum sodium of 138, potassium 4.7, chloride 100, bicarbonate 27, anion gap of 11, BUN 14, creatinine 1, estimated GFR was 79 mL per minute. His glucose was 91, calcium was initially at 38 mg/dL. His calcium was 8.9, magnesium was 2.3. Total bilirubin, AST, ALT, alkaline phosphatase were normal. Total protein was 7.8, albumin 4.1. His urinalysis showed the urine was yellow, clear with a pH of 5.5, specific gravity of 1.010. His urine was negative for protein. There was large amount of glucose, positive for ketones. The urine was negative for blood, nitrite, and leukocyte esterase. There are no rbc's, no wbc's, and no bacteria and urine toxicology was negative for opiates, methadone, barbiturates, phencyclidine, amphetamine, methamphetamine, benzodiazepine, cocaine, cannabinoids, ethyl alcohol. ASSESSMENT AND PLAN: The patient was admitted with diagnosis of severe hypoglycemia, likely on the basis of starvation as he is not known to be diabetic and he is not on any oral hypoglycemic agent. Surprisingly, he has also marked glycosuria in the face of hypoglycemia. Other medical problems include hypothyroidism, hereditary hemorrhagic telangiectasia, microcytic hypochromic anemia. He is also known to have Raynaud's phenomenon. He obviously is known to have chronic schizophrenia. The patient was continued on IV D5W. We will continue to monitor his blood sugar and make sure that he stays within acceptable range. LEONA BOSCH MD DR: MAYITO/jyoti JOB#: [id number] / [id number]
--- NOTE | 2018-07-18 13:49 | DS ---
DATE OF DISCHARGE: 07/18/2018 HOSPITAL COURSE: The patient is a 53-year-old male patient who is known to have chronic schizophrenia and who was brought to the Emergency Room by the emergency medical service personnel with progressive weakness and hypoglycemia. His blood sugar was only 38 mg/dL. He was given an amp of D50, 50 mL of 50% dextrose, continued on D5W, given multiple lunch boxes in the Emergency Room and continued on D5W. His blood sugar has stabilized around 90-100 mg/dL. He has been up and about, awake and alert. PHYSICAL EXAMINATION: GENERAL: When I examined him this afternoon, he looked well and was clearly in no apparent respiratory distress. He was slightly pale, but not jaundiced, cyanosed. No lymphadenopathy, no thyromegaly. No jugular venous distention. No limb edema. VITAL SIGNS: His heart rate was 69, blood pressure was 99/62, temperature was 98.2, respiratory rate was 18 and oxygen saturation was 100% on room air. HEAD, EYES, EARS, NOSE, AND THROAT: Showed normocephalic, atraumatic. NECK: Supple. HEART: Showed normal first and second heart sounds with no gallop, rub, or murmur. CHEST: Clear to auscultation. No crepitation or rhonchi. ABDOMEN: Scaphoid, soft, nontender. NEUROLOGIC: He was awake, alert, responding appropriately. All his cranial nerves are intact. He moves extremities without difficulty, ambulates without assistance or assistive devices. LABORATORY DATA: His lab work this morning showed a serum sodium 138, potassium 4.1, chloride 103, bicarbonate 29, anion gap of 6, BUN 19, creatinine 0.9, estimated GFR was 89 mL per minute. His glucose was 109, calcium was 8.2. His white cell count was 6000, hemoglobin 11, hematocrit 34, MCV 73, and platelet count of 296,000 with normal manual differential. DISCHARGE MEDICATIONS: He was discharged home to continue on his monthly intramuscular injection of Abilify. FINAL DISCHARGE DIAGNOSES: Hypoglycemia based most likely on starvation, has been not on any oral hypoglycemic agent. He is also known to have chronic schizophrenia for which he is on Abilify 400 mg intramuscular once a month, hypothyroidism, hereditary hemorrhagic telangiectasia, and recurrent gastrointestinal bleed. LEONA BOSCH MD DR: MAYITO/jyoti JOB#: [id number] / [id number]
[2018-08-17] MEDS ORDERED: NON FORMULARY ITEM (Aripiprazole (Abilify Maintena) 400 MG) IM SCH (09:00)
== END 2018-07-18 13:30 | disposition home or self-care (01) | DRG 641 ==
LOC: ER 11:18 → 1 SOUTH 17:10
PROVIDERS: ADMIT Internal Medicine; ATTEND Internal Medicine
DX: E16.2 Hypoglycemia, unspecified (principal); E46 Unspecified protein-calorie malnutrition; Z68.1 Body mass index [BMI] 19.9 or less, adult; K92.2 Gastrointestinal hemorrhage, unspecified; T73.0XXA Starvation, initial encounter; D50.9 Iron deficiency anemia, unspecified; E03.9 Hypothyroidism, unspecified; F20.9 Schizophrenia, unspecified; F31.9 Bipolar disorder, unspecified; I73.00 Raynaud's syndrome without gangrene; X58.XXXA Exposure to other specified factors, initial encounter; F41.9 Anxiety disorder, unspecified; Z88.8 Allergy status to other drugs, medicaments and biological substances; Z91.041 Radiographic dye allergy status; I78.0 Hereditary hemorrhagic telangiectasia
CPT/HCPCS: 36415; 71045; 80048; 80053; 80307; 81001; 82140; 82947; 83605; 83735; 84484; 85025; 93005; 96365; 96367; 96376; J7042; 99285-25; J7030

== ENCOUNTER 2018-07-19 11:01 | Emergency (ER) | payer OTHER ==
[~2018-07-19] VITALS: Ht 180.3 cm; Wt 55.8 kg
[~2018-07-19 11:01] MED LIST changes: +ARIP400S IM
[2018-07-19] MEDS: MVI, ADULT NO.4 WITH VIT K 10 ML, FOLIC ACID SYRINGE for ER 1 MG, THIAMINE INJ 100 MG i... IV ONE ×4 (11:46)
--- NOTE | 2018-07-19 11:46 | PHYS DOC ---
Past History Past Medical History: Seizure, Schizophrenia, Other Additional Past Medical Histor: Ljdls-Xylgb-Ycqsy Dz, Past Surgical History: Tubal ligation Additional Past Surgical Histo: duodenal surg Smoking: Non-smoker Alcohol Use: None Drug Use: None Adult General Chief Complaint Chief Complaint: BLOOD SUGAR PROBLEM HPI HPI Patient is a 53-year-old male presents via EMS with symptoms of hypoglycemia. Patient reports some weakness. Blood sugar per EMS was 53. The patient has a history of schizophrenia, he states that a voice in his head has told him not to eat. The patient states that he has mild dizziness and overall weakness. The patient was admitted to this hospital on Friday for the same symptoms, he was discharged yesterday. He states that the last time he ate was yesterday when he had "chicken". The patient is noncompliant with medical management of his schizophrenia. He denies any fevers, chills, nausea, or vomiting. Denies suicidal or homicidal ideation. Review of Systems Review of Systems Constitutional: Denies fever or chills [] Eyes: Denies change in visual acuity, redness, or eye pain [] HENT: Denies nasal congestion or sore throat [] Respiratory: Denies cough or shortness of breath [] Cardiovascular: Denies chest pain or palpitations GI: Denies abdominal pain, nausea, vomiting,or diarrhea [] : Denies dysuria or hematuria [] Integument: Denies rash or skin lesions [] Neurologic: Denies headache, focal weakness or sensory changes [] Complete systems were reviewed and found to be within normal limits, except as documented in this note. Current Medications Current Medications Current Medications Medications (Trade) Dose Ordered Sig/Tomasz Start Time Stop Time Status Last Admin Dose Admin Multivitamins/ Minerals 10 ml/ Folic Acid 1 mg/ Thiamine HCl 100 mg/Lactated Ringer's 1,011.2 ml @ 1,011.2 mls/hr 1X ONCE 07/19/18 11:30 07/19/18 12:29 Allergies Allergies Allergies Coded Allergies Type Severity Reaction Last Updated Verified aspirin Allergy Intermediate bleeding 07/17/18 Yes I S O L A T I O N *CONTACT* Allergy Unknown 04/10/18 Yes Physical Exam Physical Exam Constitutional: no acute distress, non-toxic appearance. [] HENT: Normocephalic, atraumatic, nose normal, white circular lesions present on the tongue, tacky mucous membranes [] Eyes: Conjunctiva normal, no discharge. [] Neck: Normal range of motion, no tenderness, supple, no meningeal signs Cardiovascular: Heart rate regular rhythm, no murmur [] Lungs & Thorax: Bilateral breath sounds clear to auscultation [] Abdomen: Soft, no tenderness. [] Skin: Warm, dry, mildly dehydrated appearance. [] Extremities: No tenderness, no edema. [] Neurologic: Alert and oriented X 3, no focal deficits noted. [] Psychologic: Flat affect, denies suicidal or homicidal ideation[] Current Patient Data Lab Results Laboratory Tests Test 07/19/18 11:04 Glucose (Fingerstick) 53 mg/dL (70-99) L EKG EKG [] Radiology/Procedures Radiology/Procedures [] Course & Med Decision Making Course & Med Decision Making Pertinent Labs and Imaging studies reviewed. (See chart for details) Patient is a 53-year-old male presents with dizziness and weakness. HPI and physical exam was concerning for hypoglycemia. Fingerstick glucose was 53 with EMS. Oral glucose was administered by EMS. Labs were ordered and posted to chart. Banana bag IVF provided. Fingerstick glucose was check after the administration of fluids and food and was 87. Patient was advised on the need for adequate nutrition and the need for close management of his psychiatric condition. Patient stable for discharge with outpatient follow-up with PCP. Discussed findings and plan with patient, who acknowledges understanding and agreement. Dragon Disclaimer Dragon Disclaimer This electronic medical record was generated, in whole or in part, using a voice recognition dictation system. Departure Departure: Impression: Primary Impression: Hypoglycemia Disposition: 01 HOME, SELF-CARE Condition: STABLE Referrals: CRISS POWER MD (PCP) Patient Instructions: Hypoglycemia, Odig-cp-Ivaj Additional Instructions: Please eat 3 healthy meals daily. NAZARIO SEO DO Jul 19, 2018 11:46
[2018-07-19 12:45] LABS: BASO # 0.1 x10^3/uL (0.0-0.2); BASO % 1 % (0-3); EOS # 0.1 x10^3/uL (0.0-0.7); EOS % 2 % (0-3); HEMOGLOBIN 12.9 g/dL (13.0-17.5); LYMPH # 0.9 x10^3/uL (1.0-4.8); LYMPH % 18 % (24-48); MEAN CORPUSCULAR HEMOGLOBIN 23 pg (25-35); MEAN CORPUSCULAR HGB CONC 31 g/dL (31-37); MEAN CORPUSCULAR VOLUME 75 fL (79-100); MONO # 0.3 x10^3/uL (0.0-1.1); MONO % 6 % (0-9); NEUT # 3.7 x10^3uL (1.8-7.7); NEUT % 73 % (31-73); PLATELET COUNT 301 x10^3/uL (140-400); RED BLOOD COUNT 5.63 x10^6/uL (4.30-5.70); WHITE BLOOD COUNT 5.1 x10^3/uL (4.0-11.0)
[2018-07-19 12:59] LABS: ALBUMIN 4.4 g/dL (3.4-5.0); ALBUMIN/GLOBULIN RATIO 1.1 (1.0-1.7); CREATININE 0.9 mg/dL (0.7-1.3); MAGNESIUM 2.2 mg/dL (1.8-2.4); POTASSIUM 4.2 mmol/L (3.5-5.1); TOTAL BILIRUBIN 0.3 mg/dL (0.2-1.0); TOTAL PROTEIN 8.3 g/dL (6.4-8.2)
[2018-07-19 13:05] LABS: BILIRUBIN,URINE NEG (NEG); CLARITY,URINE CLEAR; COLOR,URINE YELLOW; GLUCOSE,URINE 250 mg/dL (NEG); NITRITE,URINE NEG (NEG); RBC,URINE 0 /HPF (0-2); UROBILINOGEN,URINE 0.2 mg/dL (0.2 mg/dL)
[2018-07-19 13:06] LABS: BACTERIA,URINE 0 /HPF (0-FEW); SQUAMOUS EPITHELIAL CELL,UR OCC /LPF; WBC,URINE 0 /HPF (0-4)
[2018-07-19 13:45] VITALS: BP 113/66
== END 2018-07-19 13:45 | disposition home or self-care (01) ==
LOC: ER 11:01
DX: E16.2 Hypoglycemia, unspecified (principal); F20.9 Schizophrenia, unspecified; Z88.6 Allergy status to analgesic agent; Z91.041 Radiographic dye allergy status
CPT/HCPCS: 36415; 80053; 81001; 82947; 83735; 85025; 96365; 96366; 99284; J7120

== ENCOUNTER 2018-07-20 10:10 | Inpatient (IN) | payer OTHER ==
[~2018-07-20] VITALS: Ht 180.3 cm; Wt 57.7 kg
[2018-07-20] MEDS ORDERED: IV NORMAL SALINE 1,000ML 1,000 ML IV ONE (10:30)
[2018-07-20] MEDS ORDERED: DEXTROSE 50% 25 GM / 50ML DISP.SYRIN. IV ONE (10:30)
[2018-07-20 10:47] LABS: BASO % 1 % (0-3); EOS # 0.1 x10^3/uL (0.0-0.7); EOS % 2 % (0-3); HEMATOCRIT 41.8 % (39.0-53.0); LYMPH # 1.2 x10^3/uL (1.0-4.8); LYMPH % 21 % (24-48); MEAN CORPUSCULAR HEMOGLOBIN 23 pg (25-35); MEAN CORPUSCULAR HGB CONC 31 g/dL (31-37); MEAN CORPUSCULAR VOLUME 75 fL (79-100); MONO # 0.2 x10^3/uL (0.0-1.1); MONO % 4 % (0-9); NEUT # 4.1 x10^3uL (1.8-7.7); NEUT % 72 % (31-73); PLATELET COUNT 316 x10^3/uL (140-400); RED BLOOD COUNT 5.59 x10^6/uL (4.30-5.70); RED CELL DISTRIBUTION WIDTH 21.4 % (11.5-14.5); WHITE BLOOD COUNT 5.7 x10^3/uL (4.0-11.0)
--- NOTE | 2018-07-20 10:56 | PHYS DOC ---
Past History Past Medical History: Seizure, Schizophrenia, Other Additional Past Medical Histor: Cavdc-Yodjw-Lkqhk Dz, Past Surgical History: Tubal ligation Additional Past Surgical Histo: duodenal surg Smoking: Non-smoker Alcohol Use: None Drug Use: None Adult General Chief Complaint Chief Complaint: WEAKNESS/GENERALIZED HPI HPI 53-year-old male presents via EMS with generalized weakness. The patient is been in the emergency room a few times lately with general weakness. He was recently admitted with hypoglycemia. Patient tells me that other than the weakness he is feeling okay. He did not eat anything this morning. He states that the voice told him not to. The patient has known psychiatric condition and does have audible hallucinations. The patient is unsure if he has been drinking very much fluids. He denies fever or chills. Review of Systems Review of Systems Constitutional: Denies fever or chills. Weakness [] Eyes: Denies change in visual acuity, redness, or eye pain [] HENT: Denies nasal congestion or sore throat [] Respiratory: Denies cough or shortness of breath [] Cardiovascular: No additional information not addressed in HPI [] GI: Denies abdominal pain, nausea, vomiting, bloody stools or diarrhea [] : Denies dysuria or hematuria [] Musculoskeletal: Denies back pain or joint pain [] Integument: Denies rash or skin lesions [] Neurologic: Denies headache, focal weakness or sensory changes [] Endocrine: Denies polyuria or polydipsia [] All other systems were reviewed and found to be within normal limits, except as documented in this note. Current Medications Current Medications Current Medications Medications (Trade) Dose Ordered Sig/Tomasz Start Time Stop Time Status Last Admin Dose Admin Dextrose 25 gm 1X ONCE 07/20/18 10:30 07/20/18 10:32 DC Sodium Chloride 1,000 ml @ 1,000 mls/hr 1X ONCE 07/20/18 10:30 07/20/18 11:29 Allergies Allergies Allergies Coded Allergies Type Severity Reaction Last Updated Verified aspirin Allergy Intermediate bleeding 07/17/18 Yes I S O L A T I O N *CONTACT* Allergy Unknown 04/10/18 Yes Physical Exam Physical Exam Constitutional: Well developed, thin, no acute distress, non-toxic appearance. [ ] HENT: Normocephalic, atraumatic, bilateral external ears normal, oropharynx moist, no oral exudates, nose normal. [] Eyes: PERRLA, EOMI, conjunctiva normal, no discharge. [] Neck: Normal range of motion, no tenderness, supple, no stridor. [] Cardiovascular:Heart rate regular rhythm, no murmur [] Lungs & Thorax: Bilateral breath sounds clear to auscultation [] Abdomen: Bowel sounds normal, soft, no tenderness, no masses, no pulsatile masses. [] Skin: Warm, dry, no erythema, no rash. [] Back: No tenderness, no CVA tenderness. [] Extremities: No tenderness, no cyanosis, no clubbing, ROM intact, no edema. [] Neurologic: Alert and oriented X 3, normal motor function, normal sensory function, no focal deficits noted. [] Psychologic: Affect normal, judgement normal, mood normal. Auditory hallucinations [] EKG EKG [] Radiology/Procedures Radiology/Procedures [] Course & Med Decision Making Course & Med Decision Making Pertinent Labs and Imaging studies reviewed. (See chart for details) On arrival, the patient's finger stick glucose was 44. We gave him an amp of D50 and fed him a sandwich. The patient has been very difficult to get an IV in. Because several attempts, we were able to get basic blood work. His repeat fingerstick is 78. Since is the second time the patient's been emergency room with low blood sugar in 2 days, the feeling is prudent to admit him. I discussed the case with Dr. Morris and he has accepted the patient for admission. [] Dragon Disclaimer Dragon Disclaimer This electronic medical record was generated, in whole or in part, using a voice recognition dictation system. Departure Departure: Referrals: CRISS POWER MD (PCP) DONTAE MCLEAN DO Jul 20, 2018 10:56
[2018-07-20 10:58] LABS: BACTERIA,URINE 0 /HPF (0-FEW); BILIRUBIN,URINE NEG (NEG); CLARITY,URINE CLEAR; COLOR,URINE YELLOW; GLUCOSE,URINE NEG (NEG); NITRITE,URINE NEG (NEG); RBC,URINE RARE /HPF (0-2); SQUAMOUS EPITHELIAL CELL,UR OCC /LPF; UROBILINOGEN,URINE 0.2 mg/dL (0.2 mg/dL); WBC,URINE 0 /HPF (0-4)
[2018-07-20 11:26] LABS: PLT ESTIMATE ADEQUATE (ADEQUATE)
[2018-07-20 11:27] LABS: ANISOCYTOSIS SLIGHT; HYPOCHROMIA SLIGHT; OVALOCYTES MOD; SCHISTOCYTES OCC; TEAR DROP CELLS OCC
[2018-07-20] MEDS ORDERED: ONDANSETRON PF 4 MG/2 ML VIAL. IV PRN (12:45)
[2018-07-20 13:26] LABS: ALBUMIN 3.4 g/dL (3.4-5.0); ALBUMIN/GLOBULIN RATIO 1.1 (1.0-1.7); CALCIUM 8.4 mg/dL (8.5-10.1); CREATININE 0.8 mg/dL (0.7-1.3); GFR 101.9; POTASSIUM 4.3 mmol/L (3.5-5.1); TOTAL BILIRUBIN 0.3 mg/dL (0.2-1.0); TOTAL PROTEIN 6.4 g/dL (6.4-8.2)
[2018-07-20 14:02] VITALS: BP 117/75
[2018-07-20] MEDS: IV DEXTROSE 5% 1,000 ML IV SCH (14:30)
[2018-07-20 15:18] VITALS: BP 118/77
[2018-07-20 19:55] VITALS: BP 113/79
[2018-07-21 01:25] VITALS: BP 105/65
[2018-07-21] MEDS: IV DEXTROSE 5% 1,000 ML IV SCH ×3 (03:50→21:23)
[2018-07-21 05:43] VITALS: BP 102/62
[2018-07-21 11:41] VITALS: BP 96/57
[2018-07-21] MEDS ORDERED: IOHEXOL 240 MG/ML 50ML VIAL. ONE (13:45)
--- NOTE | 2018-07-21 14:44 | HP ---
ADMIT DATE: 07/20/2018 HISTORY OF PRESENT ILLNESS: The patient is a 53-year-old male patient who was admitted again with generalized weakness. He was found again to have low blood sugar and was admitted for further evaluation and treatment. He was discharged here a few days ago and was given clear instructions to buy food and go back to his apartment. He told me that he did, unfortunately his voices told him not to eat and because he became so weak, he called the ambulance and was brought to the Emergency Room where he was evaluated and was found to have a low blood sugar of 38 mg and 39 mg on arrival and he was started on DW as well as was fed and was admitted for further evaluation and treatment. The patient denied any nausea or vomiting. Denied any diarrhea. Denied any abdominal pain. PAST MEDICAL HISTORY: Significant for chronic schizophrenia, he is known to have Zwijy-Dwzck-Ogfpb disease, recurrent GI bleed. He has microcytic hypochromic anemia, thrombocytosis, ovalocytosis. He has also hypothyroidism as well as Raynaud's phenomenon. PAST SURGICAL HISTORY: Significant for tonsillectomy, periumbilical hernia repair, teeth extraction, esophagogastroduodenoscopy, and colonoscopy. ALLERGIES: HE IS ALLERGIC TO ASPIRIN HE BLEEDS. MEDICATIONS: He is on Abilify injection once a month. He does not take any other medication by mouth. FAMILY HISTORY: He has 2 brothers, one older and one younger. His voices tell him when to talk to them and when not to talk to them. According to him, he has not seen his father since 1985. His mother at the age of 66 because of diverticulitis. SOCIAL HISTORY: He is single, has no children, has never . He does not smoke, drink alcohol, or use any recreational drugs. He is on disability. REVIEW OF SYSTEMS: As per history of present illness. PHYSICAL EXAMINATION: GENERAL: On arrival to the Emergency Room, he looked well and was clearly in no apparent distress. He was pale, cachectic, but no jaundice, cyanosis, or thyromegaly. No jugular venous distension. No lower limb edema. VITAL SIGNS: His heart rate was 57, blood pressure was 121/57, temperature was 97.5, respiratory rate 20, and oxygen saturation was 100%. HEAD, EYES, EARS, NOSE, THROAT: Showed normocephalic, atraumatic. NECK: Supple. HEART: Showed normal first and second heart sounds. No gallop, rub or murmur. CHEST: Clear to auscultation. No crepitation or rhonchi. ABDOMEN: Distended, soft, nontender. No guarding or rigidity. No organomegaly. All hernial orifices intact. Bowel sounds normal. NEUROLOGIC: He was awake, alert, responding appropriately. All his cranial nerves are intact. EXTREMITIES: He moves extremities without difficulty. LABORATORY DATA: On arrival to the Emergency Room, his blood sugar was only 44 mg/dL. His serum sodium was 142, potassium 4.3, chloride 105, bicarbonate 30, anion gap of 7, BUN 14, creatinine 0.8, estimated GFR was 101 mL per minute, his glucose was 77, calcium was 8.4. Total bilirubin, AST, ALT, alkaline phosphatase were normal. Total protein was 6.4, albumin 3.4. His white cell count was 5700, hemoglobin 13, hematocrit 41, MCV 75, and platelet count of 316,000 with normal manual differential. ASSESSMENT: This is a 53-year-old male patient with schizophrenia, who is using monthly Abilify, who comes again with another episode of hypoglycemia. At this time, his blood sugar was 44 mg/dL. His voices tell him not to eat. He also complained of generalized weakness. He has multiple other medical problems including hereditary hemorrhagic telangiectasia, iron-deficiency anemia, hypothyroidism, and has also Raynaud's phenomenon. He is definitely cachectic. His body mass index is only 17.2 kilogram per square meter. PLAN: My plan is to arrange for him to have serum insulin and C-peptide at the time of his hypoglycemia as well as his morning cortisol. We checked his TSH before and his TSH was normal and meanwhile, we will continue with IV fluid, continue with nutritional support. LEONA BOSCH MD DR: MAYITO/jyoti JOB#: [id number] / [id number]
--- NOTE | 2018-07-21 16:53 | RAD ---
CT of the abdomen and pelvis without contrast, 07/21/2018: HISTORY: Weight loss, cachexia Multidetector CT imaging was performed following oral administration of contrast. No IV contrast was administered due to lack of adequate IV access. Comparison is made to a study from 08/14/2017. There is a small unchanged parenchymal opacity in the right lower lobe laterally. 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 There are small bilateral pleural effusions. A trace amount of pericardial fluid is evident. A low-density lesion in the posterior aspect of the right lobe of the liver is most likely a cyst. The unopacified liver is otherwise unremarkable. No gallbladder abnormality is seen. The pancreas is unremarkable. The spleen is at the upper limits of normal in size measuring 13 cm in craniocaudad extent. The unopacified kidneys are unremarkable. There is mild aortic calcific plaquing without evidence of aneurysm. No abdominal or pelvic adenopathy is seen. The prostate gland is enlarged. The partially filled urinary bladder is unremarkable. There is a paucity of abdominal fat the bowel loops. The bowel loops are not dilated. There is a probable small amount of free fluid in the pelvis. No free air is evident in the abdomen. Incidental note is made of bilateral spondylolysis at L5 without significant spondylolisthesis. IMPRESSION: 1. Small bilateral pleural effusions. 2. Borderline splenomegaly. 3. Prostate enlargement. 4. Probable small amount of free fluid in the pelvis. 5. Miscellaneous chronic findings as described above. PQRS Compliance Statement: One or more of the following individualized dose reduction techniques were utilized for this examination: 1. Automated exposure control 2. Adjustment of the mA and/or kV according to patient size 3. Use of iterative reconstruction technique Electronically signed by: Crow Fisher MD (07/21/2018 4:48 PM) [facility]
[2018-07-21 17:22] VITALS: BP 110/62
[2018-07-21 20:39] VITALS: BP 114/73
[2018-07-21 23:08] VITALS: BP 100/65
--- NOTE | 2018-07-22 02:18 | PN ---
DATE: 07/21/2018 SUBJECTIVE: The patient came back again with hypoglycemia with generalized weakness. His blood sugar was only 44 mg at the Emergency Room. He was fed; however, we attempted to check his insulin and C-peptide levels and we avoided starting him on D5W. He has eaten his breakfast and lunch; however, his blood sugar remains borderline with a blood sugar ranging between 70 and 80. The lowest value was 44 mg on admission. Denied any other complaint. PHYSICAL EXAMINATION: GENERAL: When I examined him this afternoon, he looked well and was clearly in no apparent respiratory distress, pale, cachectic, but no jaundice, cyanosis, or thyromegaly. No jugular venous distension. No limb edema. VITAL SIGNS: His heart rate was 69, blood pressure was 96/57, temperature was 97.9, respiratory rate 20 and oxygen saturation was 100%. The rest of clinical exam is stable. LABORATORY DATA: Showed a serum sodium 142, potassium 4.3, chloride 105, bicarbonate 30, anion gap of 7, BUN 14, creatinine 0.8, estimated GFR was 101 mL per minute. His glucose was 77. Calcium was 8.4. Total bilirubin, AST, ALT, alkaline phosphatase were normal. Total protein was 6.4, albumin 3.4. His hemoglobin was 13, hematocrit 41 with normal white cell count and platelets 316,000. ASSESSMENT: Recurrent episode of hypoglycemia with generalized weakness, raising the possibility that either he has some form of either insulinoma and/or some form of a tumor that is secreting insulin like substance like sarcoma. He is very cachectic. His body mass index only 17.5 kilograms per square meter. My plan is to check his insulin level and C-peptide to see if he is producing his own insulin and he might have insulinoma. I will also arrange for him to have a CT scan of the abdomen and pelvis with IV and oral contrast and we will decide on further management accordingly. LEONA BOSCH MD DR: MAYITO/jyoti JOB#: [id number] / [id number]
[2018-07-22 06:05] VITALS: BP 107/67
[2018-07-22 10:46] VITALS: BP 107/65
[2018-07-22 13:15] LABS: C-PEPTIDE 1.4 ng/mL (1.1-4.4); INSULIN LEVEL 2.1 uIU/mL (2.6-24.9)
[2018-07-22 15:50] VITALS: BP 110/59
[2018-07-22 19:48] VITALS: BP 97/61
[2018-07-22] MEDS: IV DEXTROSE 5% 1,000 ML IV SCH (21:53)
--- NOTE | 2018-07-22 22:33 | PN ---
DATE: 07/22/2018 SUBJECTIVE: The patient is sitting slightly propped up in bed, in no apparent distress, awake, alert. On questioning him, he denied any complaint. Nursing staff stated his blood sugar continues to be in the 60-70 despite being on D5W at 75 mL. He dropped his glucose down to 22 mg/dL last night and we did actually take the opportunity to send blood for serum insulin and C-peptide. PHYSICAL EXAMINATION: GENERAL: When I examined him this afternoon, he looked pale, cachectic, but no jaundice, cyanosis, or thyromegaly. No jugular venous distension. No lower limb edema. VITAL SIGNS: Her heart rate was 60, blood pressure was 107/65, temperature was 97.6, respiratory rate was 16, and oxygen saturation was 99% on room air. HEENT: Examination of the head, eyes, ears, nose and throat showed normocephalic, atraumatic. NECK: Supple. HEART: Showed normal first and second heart sounds. No gallop, rub or murmur. CHEST: Clear to auscultation. No crepitation or rhonchi. ABDOMEN: Scaphoid, soft, nontender. NEUROLOGIC: He was awake, alert, responding appropriately. All his cranial nerves are intact. EXTREMITIES: He moves extremities without difficulty, ambulates without assistance or assistive devices. His intake over the last 24 hours was 1060. LABORATORY DATA: His most recent lab work showed a serum sodium 142, potassium 4.3, chloride 105, bicarbonate 30, anion gap of 7, BUN 14, creatinine 0.8, estimated GFR was 101, calcium was 8.4. Total bilirubin, AST, ALT, alkaline phosphatase were normal. Total protein was 6.4, albumin 3.4. His white cell count was 5700, hemoglobin 13, hematocrit 42, MCV 75 and platelet count 316,000 with normal manual differential. ASSESSMENT: So, in summary, this is a 53-year-old, who was admitted numerous times with recurrent episode of hypoglycemia the cause of which is not clear. He is only on Abilify that he takes once every 4 weeks intramuscularly for his schizophrenia. Other medical problems include hereditary hemorrhagic telangiectasia, hypothyroidism, Raynaud's phenomenon, and severe iron deficiency anemia. PLAN: We have sent already blood for serum insulin and C-peptide last night when his blood sugar dropped down to 22 mg. I will attempt to transfer him to [facility] to see if further workup can be done to assist and manage this recurring problem. LEONA BOSCH MD DR: MAYITO/jyoti JOB#: [id number] / [id number]
[2018-07-22 23:47] VITALS: BP 107/64
[2018-07-23 05:59] VITALS: BP 106/46
[2018-07-23 09:14] LABS: INSULIN LEVEL 5.6 uIU/mL (2.6-24.9)
[2018-07-23] MEDS: IV DEXTROSE 5% 1,000 ML IV SCH ×2 (09:59→23:11)
[2018-07-23 10:20] VITALS: BP 106/66
[2018-07-23 15:35] VITALS: BP 120/67
[2018-07-23 19:45] VITALS: BP 134/74
--- NOTE | 2018-07-24 00:55 | PN ---
DATE: 07/23/2018 SUBJECTIVE: The patient is resting slightly propped up in bed, in no apparent distress. He continued to complain of weakness, although his blood sugar continues to be between 60 and 90 mg/dL on D5W. I spoke with Dr. Anthony Landis and he agreed with all the testing that we did and he is willing to see him as an outpatient, although the patient himself is very paranoid and apparently the voices control all his actions. His voice is not allowing him to speak to his brother. His mother has . He has expressed his willingness to go to a skilled nursing. PHYSICAL EXAMINATION: GENERAL: When I examined him, he was resting slightly propped up in bed, in no apparent respiratory distress, pale, but no jaundice, cyanosis or thyromegaly. No jugular venous distension. No limb edema. VITAL SIGNS: His heart rate was 60, blood pressure 106/46, temperature was 97.5, respiratory rate 20, and oxygen saturation was 98%. HEAD, EYES, EARS, NOSE AND THROAT: Showed normocephalic, atraumatic. NECK: Supple. HEART: Normal first and second sounds. No gallop, rub or murmur. CHEST: Clear to auscultation. No crepitation or rhonchi. ABDOMEN: Distended, soft, nontender. No guarding or rigidity. No organomegaly. All hernial orifices intact. Bowel sounds normal. NEUROLOGIC: He was awake, alert, responding appropriately. All cranial nerves intact. He moves extremities without difficulty, ambulates without assistance or assistive devices. His intake was 1060 and no output was recorded. LABORATORY DATA: His lab work showed white cell count 5700, hemoglobin 13, hematocrit 42, MCV 75 and platelet count 316,000. His blood glucose this morning was 67. When his blood sugar was only 22 mg/dL, his insulin level was 5.6 and C-peptide was 3. Dr. Cruz said that with this level of blood sugar, his insulin should be undetectable and is wondering whether the patient has drug-induced hypoglycemia in the form of sulfonylurea and wondered whether we should check his sulfonylurea level. PLAN: I spoke with our social worker school to see whether he can be a candidate for a skilled nursing. If not, at least if you can to arrange for him to be transported from home to his appointment, we can make an appointment for him to be seen by Dr. Anthony Lanids at [facility] to investigate his hypoglycemia. LEONA BOSCH MD DR: MAYITO/jyoti JOB#: [id number] / [id number]
[2018-07-24 00:57] VITALS: BP 112/73
[2018-07-24 05:14] VITALS: BP 104/66
[2018-07-24 10:30] VITALS: BP 119/68
[2018-07-24] MEDS: IV DEXTROSE 5% 1,000 ML IV SCH (11:50)
--- NOTE | 2018-07-24 13:44 | DS ---
DATE OF DISCHARGE: 07/20/2018 HISTORY OF PRESENT ILLNESS: The patient is a 53-year-old male patient, who has been coming to this hospital for numerous occasions for recurrent episodes of hypoglycemia. His blood sugar has been dropping down to as low as 22 mg/dL and I have done extensive investigation including his insulin level as well as C-peptide and I spoke with Dr. Anthony Okeefe, equipment maintenance superintendent at the [facility] and he agreed to see him as an outpatient. He said that his insulin level is high, although normally this is normal as is usually in the 50s-100 and in his assessment blood sugar was 22, the insulin should be suppressed completely. I did a CT scan of the abdomen and pelvis, which showed no evidence of any abnormalities. His morning cortisol is normal. His TSH is normal. I did suggest to the patient that he should get his brother to take him to Dr. Cruz to be seen there and he said that the voices will not allow him to talk to his brother. I asked also if he can take a cab to his appointment that we can make for him next week and he said again the voices will not allow him to go there. I have discussed the options available for us to treat him, given that he makes his own decisions, although he is schizophrenic. We thought that next time he should be take straight to either [facility] or the ambulance should take him straight to [facility]. These 2 centers have endocrinologists that can find out exactly the reason for his recurrent hypoglycemia for treatment if any. PHYSICAL EXAMINATION: GENERAL: When I examined today, he looked well and was clearly in no apparent respiratory distress. No pallor, jaundice, cyanosis, or thyromegaly. No jugular venous distension. No lower limb edema. VITAL SIGNS: Heart rate was 63, blood pressure was 119/68, temperature was 97.7, respiratory rate was 20, and oxygen saturation was 100% on room air. HEAD, EYES, EARS, NOSE AND THROAT: Showed normocephalic, atraumatic. NECK: Supple. HEART: Showed normal first and second heart sounds. No gallop, rub or murmur. CHEST: Clear to auscultation. No crepitation or rhonchi. ABDOMEN: Distended, soft, nontender. No guarding or rigidity. No organomegaly. All hernial orifices intact. Bowel sounds normal. NEUROLOGIC: He was awake, alert, responding appropriately. All cranial nerves intact. He moves extremities without difficulty, ambulates without assistance or assistive devices. His intake over the last 24 hours was 3276, no output was recorded. LABORATORY DATA: His blood sugar this morning has consistently between 80-69 mg/dL. His kidney function showed BUN of 14, creatinine 0.8. His hemoglobin was 13, hematocrit 42 with normal white cell count and platelet. DISCHARGE MEDICATIONS: He will be discharged home to continue on his Abilify intramuscular every 4 weeks. FINAL DISCHARGE DIAGNOSES: 1. Recurrent episode of hypoglycemia of unknown cause. 2. Paranoid schizophrenia. 3. Hereditary hemorrhagic telangiectasia. 4. Iron deficiency anemia. 5. Hypothyroidism. 6. Raynaud's phenomenon. LEONA BOSCH MD DR: MAYITO/jyoti JOB#: [id number] / [id number]
== END 2018-07-24 14:30 | disposition home or self-care (01) | DRG 641 ==
LOC: ER 10:10 → 1 SOUTH 13:00 → ER 13:28
PROVIDERS: ADMIT Internal Medicine; ATTEND Internal Medicine
DX: E16.2 Hypoglycemia, unspecified (principal); R64 Cachexia; F20.0 Paranoid schizophrenia; Z68.1 Body mass index [BMI] 19.9 or less, adult; I78.0 Hereditary hemorrhagic telangiectasia; I73.00 Raynaud's syndrome without gangrene; F20.9 Schizophrenia, unspecified; E03.9 Hypothyroidism, unspecified; D50.9 Iron deficiency anemia, unspecified; Z79.899 Other long term (current) drug therapy
CPT/HCPCS: 36415; 74176; 80053; 81001; 82533; 82947; 83525; 84681; 85025; 96361; 96374; 99285-25; J7030

== ENCOUNTER 2018-07-25 14:32 | Emergency (ER) | payer OTHER ==
[~2018-07-25] VITALS: Ht 180.3 cm; Wt 59.4 kg
[2018-07-25 15:14] VITALS: BP 110/77
[2018-07-25 16:26] LABS: BASO % 1 % (0-3); EOS # 0.1 x10^3/uL (0.0-0.7); EOS % 1 % (0-3); HEMATOCRIT 39.6 % (39.0-53.0); HEMOGLOBIN 12.4 g/dL (13.0-17.5); LYMPH # 0.9 x10^3/uL (1.0-4.8); LYMPH % 19 % (24-48); MEAN CORPUSCULAR HEMOGLOBIN 23 pg (25-35); MEAN CORPUSCULAR HGB CONC 31 g/dL (31-37); MEAN CORPUSCULAR VOLUME 75 fL (79-100); MONO # 0.3 x10^3/uL (0.0-1.1); MONO % 6 % (0-9); NEUT # 3.3 x10^3uL (1.8-7.7); NEUT % 73 % (31-73); PLATELET COUNT 302 x10^3/uL (140-400); RED BLOOD COUNT 5.31 x10^6/uL (4.30-5.70); RED CELL DISTRIBUTION WIDTH 20.4 % (11.5-14.5); WHITE BLOOD COUNT 4.6 x10^3/uL (4.0-11.0)
[2018-07-25 16:41] LABS: ALBUMIN 4.7 g/dL (3.4-5.0); ALBUMIN/GLOBULIN RATIO 1.1 (1.0-1.7); GFR 78.8; POTASSIUM 4.1 mmol/L (3.5-5.1); TOTAL BILIRUBIN 0.5 mg/dL (0.2-1.0); TOTAL PROTEIN 8.9 g/dL (6.4-8.2)
[2018-07-25 16:43] LABS: BILIRUBIN,URINE NEG (NEG); CLARITY,URINE CLEAR; COLOR,URINE YELLOW; GLUCOSE,URINE 500 mg/dL (NEG); NITRITE,URINE NEG (NEG); UROBILINOGEN,URINE 0.2 mg/dL (0.2 mg/dL)
[2018-07-25 16:44] LABS: BACTERIA,URINE 0 /HPF (0-FEW); RBC,URINE 0 /HPF (0-2); SQUAMOUS EPITHELIAL CELL,UR OCC /LPF; WBC,URINE OCC /HPF (0-4)
--- NOTE | 2018-07-25 17:19 | PHYS DOC ---
Past History Past Medical History: Other Additional Past Medical Histor: Mtpem-Yoicl-Bcyrs Dz, Past Surgical History: No Surgical History Additional Past Surgical Histo: duodenal surg Smoking: Non-smoker Alcohol Use: None Drug Use: None Adult General Chief Complaint Chief Complaint: BLOOD SUGAR PROBLEM HPI HPI 53-year-old male returns to the emergency room via EMS with low blood glucose. The patient was recently discharged from this facility yesterday morning. He started to have feelings of low blood sugar and fatigue again today so he called EMS. EMS found his blood sugar to be 54. They gave him oral glucose. The patient is feeling a bit better. He has no other complaints. Review of Systems Review of Systems Constitutional: Denies fever or chills [] Eyes: Denies change in visual acuity, redness, or eye pain [] HENT: Denies nasal congestion or sore throat [] Respiratory: Denies cough or shortness of breath [] Cardiovascular: No additional information not addressed in HPI [] GI: Denies abdominal pain, nausea, vomiting, bloody stools or diarrhea [] : Denies dysuria or hematuria [] Musculoskeletal: Denies back pain or joint pain [] Integument: Denies rash or skin lesions [] Neurologic: Denies headache, focal weakness or sensory changes [] Endocrine: Denies polyuria or polydipsia [] All other systems were reviewed and found to be within normal limits, except as documented in this note. Allergies Allergies Allergies Coded Allergies Type Severity Reaction Last Updated Verified aspirin Allergy Intermediate bleeding 07/17/18 Yes I S O L A T I O N *CONTACT* Allergy Unknown 04/10/18 Yes Physical Exam Physical Exam Constitutional: Well developed, well nourished, no acute distress, non-toxic appearance. [] HENT: Normocephalic, atraumatic, bilateral external ears normal, oropharynx moist, no oral exudates, nose normal. [] Eyes: PERRLA, EOMI, conjunctiva normal, no discharge. [] Neck: Normal range of motion, no tenderness, supple, no stridor. [] Cardiovascular:Heart rate regular rhythm, no murmur [] Lungs & Thorax: Bilateral breath sounds clear to auscultation [] Abdomen: Bowel sounds normal, soft, no tenderness, no masses, no pulsatile masses. [] Skin: Warm, dry, no erythema, no rash. [] Back: No tenderness, no CVA tenderness. [] Extremities: No tenderness, no cyanosis, no clubbing, ROM intact, no edema. [] Neurologic: Alert and oriented X 3, normal motor function, normal sensory function, no focal deficits noted. [] Psychologic: Affect normal, judgement normal, mood normal. [] Current Patient Data Vital Signs Vital Signs Date Time Temp Pulse Resp B/P (MAP) Pulse Ox O2 Delivery O2 Flow Rate FiO2 07/25/18 15:14 98 18 98 Room Air Lab Results Laboratory Tests Test 07/25/18 14:35 07/25/18 15:11 07/25/18 16:00 Glucose (Fingerstick) 77 mg/dL (70-99) 226 mg/dL (70-99) H White Blood Count 4.6 x10^3/uL (4.0-11.0) Red Blood Count 5.31 x10^6/uL (4.30-5.70) Hemoglobin 12.4 g/dL (13.0-17.5) L Hematocrit 39.6 % (39.0-53.0) Mean Corpuscular Volume 75 fL (79-100) L Mean Corpuscular Hemoglobin 23 pg (25-35) L Mean Corpuscular Hemoglobin Concent 31 g/dL (31-37) Red Cell Distribution Width 20.4 % (11.5-14.5) H Platelet Count 302 x10^3/uL (140-400) Neutrophils (%) (Auto) 73 % (31-73) Lymphocytes (%) (Auto) 19 % (24-48) L Monocytes (%) (Auto) 6 % (0-9) Eosinophils (%) (Auto) 1 % (0-3) Basophils (%) (Auto) 1 % (0-3) Neutrophils # (Auto) 3.3 x10^3uL (1.8-7.7) Lymphocytes # (Auto) 0.9 x10^3/uL (1.0-4.8) L Monocytes # (Auto) 0.3 x10^3/uL (0.0-1.1) Eosinophils # (Auto) 0.1 x10^3/uL (0.0-0.7) Basophils # (Auto) 0.0 x10^3/uL (0.0-0.2) Urine Collection Type Unknown Urine Color Yellow Urine Clarity Clear Urine pH 6.0 Urine Specific [place] 1.015 Urine Protein Neg (NEG-TRACE) Urine Glucose (UA) 500 mg/dL (NEG) Urine Ketones (Stick) Neg mg/dL (NEG) Urine Blood Neg (NEG) Urine Nitrite Neg (NEG) Urine Bilirubin Neg (NEG) Urine Urobilinogen Dipstick 0.2 mg/dL (0.2 mg/dL) Urine Leukocyte Esterase Neg (NEG) Urine RBC 0 /HPF (0-2) Urine WBC Occ /HPF (0-4) Urine Squamous Epithelial Cells Occ /LPF Urine Bacteria 0 /HPF (0-FEW) Urine Mucus Slight /LPF Sodium Level 137 mmol/L (136-145) Potassium Level 4.1 mmol/L (3.5-5.1) Chloride Level 98 mmol/L (98-107) Carbon Dioxide Level 32 mmol/L (21-32) Anion Gap 7 (6-14) Blood Urea Nitrogen 16 mg/dL (8-26) Creatinine 1.0 mg/dL (0.7-1.3) Estimated GFR (Cockcroft-Gault) 78.8 BUN/Creatinine Ratio 16 (6-20) Glucose Level 113 mg/dL (70-99) H Calcium Level 9.0 mg/dL (8.5-10.1) Total Bilirubin 0.5 mg/dL (0.2-1.0) Aspartate Amino Transferase (AST) 18 U/L (15-37) Alanine Aminotransferase (ALT) 35 U/L (16-63) Alkaline Phosphatase 136 U/L (46-116) H Total Protein 8.9 g/dL (6.4-8.2) H Albumin 4.7 g/dL (3.4-5.0) Albumin/Globulin Ratio 1.1 (1.0-1.7) EKG EKG [] Radiology/Procedures Radiology/Procedures [] Course & Med Decision Making Course & Med Decision Making Pertinent Labs and Imaging studies reviewed. (See chart for details) On arrival the patient's blood sugar was 77, the repeat was 226, and his CMP had a glucose of 113. The patient needs endocrinology consult and that is not available at this facility. He is not reliable enough to do this on his own outside of the hospital. The patient repeat blood sugar has stayed at 77. I do not have an objective reason at this time to transfer him. The patient tells me that he would prefer to go home. He is stable for discharge at this time. [] Dragon Disclaimer Dragon Disclaimer This electronic medical record was generated, in whole or in part, using a voice recognition dictation system. Departure Departure: Impression: Primary Impression: Hypoglycemia Disposition: HOME, SELF-CARE Condition: IMPROVED Referrals: CRISS POWER MD (PCP) Patient Instructions: Hypoglycemia (Low Blood Sugar) DONTAE MCLEAN DO Jul 25, 2018 17:19
[2018-07-25 23:34] LABS: PLT ESTIMATE ADEQUATE (ADEQUATE); POLYCHROMASIA SLIGHT
[2018-07-25 23:35] LABS: ANISOCYTOSIS SLIGHT; OVALOCYTES OCC
== END 2018-07-25 18:39 | disposition home or self-care (01) ==
LOC: ER 14:32
DX: E16.2 Hypoglycemia, unspecified (principal); I78.0 Hereditary hemorrhagic telangiectasia; Z88.6 Allergy status to analgesic agent; Z91.041 Radiographic dye allergy status
CPT/HCPCS: 36415; 80053; 81001; 82947; 85025; 99283

== ENCOUNTER 2018-07-27 16:41 | Emergency (ER) | payer OTHER ==
[2018-07-27 18:50] VITALS: BP 111/62
--- NOTE | 2018-07-27 19:03 | PHYS DOC ---
Past History Past Medical History: Other Additional Past Medical Histor: Sgwol-Kvwix-Ddfkv Dz, Past Surgical History: No Surgical History Additional Past Surgical Histo: duodenal surg Smoking: Non-smoker Alcohol Use: None Drug Use: None Adult General Chief Complaint Chief Complaint: BLOOD SUGAR PROBLEM HPI HPI Patient is a 53 year old M who presents with low blood sugar. Ignacio has a known diagnosis of schizophrenia. His voices telling him not to eat. He has not been eating well recently due to the voices. He has no other associated symptoms. He has no other exacerbating or relieving factors. Review of Systems Review of Systems Constitutional: Denies fever or chills [] Eyes: Denies change in visual acuity, redness, or eye pain [] HENT: Denies nasal congestion or sore throat [] Respiratory: Denies cough or shortness of breath [] Cardiovascular: No additional information not addressed in HPI [] GI: Denies abdominal pain, nausea, vomiting, bloody stools or diarrhea [] : Denies dysuria or hematuria [] Musculoskeletal: Denies back pain or joint pain [] Integument: Denies rash or skin lesions [] Neurologic: Denies headache, focal weakness or sensory changes [] Endocrine: Denies polyuria or polydipsia [] All other systems were reviewed and found to be within normal limits, except as documented in this note. Family History Family History No pertinent family medical history was reported Current Medications Current Medications Current medications were reviewed Allergies Allergies Allergies Coded Allergies Type Severity Reaction Last Updated Verified aspirin Allergy Intermediate bleeding 07/17/18 Yes I S O L A T I O N *CONTACT* Allergy Unknown 04/10/18 Yes Physical Exam Physical Exam Constitutional: Well developed, well nourished, no acute distress, non-toxic appearance. [] HENT: Normocephalic, atraumatic, oropharynx moist, Eyes: EOMI, conjunctiva normal, no discharge. [] Neck: Normal range of motion, no tenderness, supple, no stridor. [] Cardiovascular:Heart rate regular rhythm, no murmur [] Lungs & Thorax: Bilateral breath sounds clear to auscultation [] Abdomen: Bowel sounds normal, soft, no tenderness, no masses, no pulsatile masses. [] Skin: Warm, dry, no erythema, no rash. [] Extremities: No tenderness, no cyanosis, no clubbing, ROM intact, no edema. [] Neurologic: Alert and oriented X 3, normal motor function, normal sensory function, no focal deficits noted. [] Psychologic: Affect normal, mood normal. [] Current Patient Data Vital Signs Normal vital signs. Please review nursing documentation for specifics Lab Results Laboratory Tests Test 07/27/18 18:17 07/27/18 18:51 Glucose (Fingerstick) 103 mg/dL (70-99) H 141 mg/dL (70-99) H EKG EKG [] Radiology/Procedures Radiology/Procedures [] Course & Med Decision Making Course & Med Decision Making Pertinent Labs and Imaging studies reviewed. (See chart for details) Karely was fed a full meal. He ate and drank without difficulty. He states that he did feel much better. Dragon Disclaimer Dragon Disclaimer This electronic medical record was generated, in whole or in part, using a voice recognition dictation system. Departure Departure: Impression: Primary Impression: Hypoglycemia Disposition: HOME, SELF-CARE Condition: STABLE Referrals: CRISS POWER MD (PCP) Patient Instructions: Hypoglycemia (Low Blood Sugar) Additional Instructions: Ignacio was seen in the emergency department for low blood sugar. No emergency medical condition was on history or physical exam. He was able to eat during his stay with moderate improvement in symptoms. He was encouraged to continue eating. He is advised follow-up with his primary care doctor as needed for further management. YANA PRICE MD Jul 27, 2018 19:03
== END 2018-07-27 19:05 | disposition home or self-care (01) ==
LOC: ER 16:41
DX: E16.2 Hypoglycemia, unspecified (principal); F20.9 Schizophrenia, unspecified; Z88.6 Allergy status to analgesic agent; Z91.041 Radiographic dye allergy status
CPT/HCPCS: 82947; 99283

== ENCOUNTER 2018-07-29 09:40 | Inpatient (IN) | payer OTHER ==
[~2018-07-29] VITALS: Ht 180.3 cm; Wt 50.5 kg
[2018-07-29] MEDS ORDERED: DEXTROSE 50% 25 GM / 50ML DISP.SYRIN. IV ONE (10:00)
[2018-07-29] MEDS ORDERED: GLUCAGON,HUMAN RECOMBINANT 1 MG KIT. IM ONE (10:15)
[2018-07-29] MEDS ORDERED: DEXTROSE ORAL GEL 15 GM TUBE. PO ONE (10:15)
[2018-07-29] MEDS ORDERED: IV DEXTROSE 10% 1,000 ML IV ONE (10:15)
[2018-07-29 10:50] LABS: BASO # 0.1 x10^3/uL (0.0-0.2); BASO % 1 % (0-3); EOS % 1 % (0-3); HEMATOCRIT 36.3 % (39.0-53.0); HEMOGLOBIN 11.3 g/dL (13.0-17.5); LYMPH # 0.5 x10^3/uL (1.0-4.8); LYMPH % 10 % (24-48); MEAN CORPUSCULAR HEMOGLOBIN 23 pg (25-35); MEAN CORPUSCULAR HGB CONC 31 g/dL (31-37); MEAN CORPUSCULAR VOLUME 74 fL (79-100); MONO # 0.2 x10^3/uL (0.0-1.1); MONO % 5 % (0-9); NEUT % 83 % (31-73); PLATELET COUNT 339 x10^3/uL (140-400); RED BLOOD COUNT 4.92 x10^6/uL (4.30-5.70); RED CELL DISTRIBUTION WIDTH 19.7 % (11.5-14.5); WHITE BLOOD COUNT 4.8 x10^3/uL (4.0-11.0)
[2018-07-29 10:58] LABS: ALBUMIN/GLOBULIN RATIO 1.2 (1.0-1.7); CALCIUM 8.3 mg/dL (8.5-10.1); GFR 78.8; MAGNESIUM 1.9 mg/dL (1.8-2.4); POTASSIUM 3.7 mmol/L (3.5-5.1); TOTAL BILIRUBIN 0.6 mg/dL (0.2-1.0); TOTAL PROTEIN 7.3 g/dL (6.4-8.2)
--- NOTE | 2018-07-29 11:49 | PHYS DOC ---
Past History Past Medical History: Schizophrenia, Other Additional Past Medical Histor: Batcf-Nzsvm-Juomg Dz, Past Surgical History: No Surgical History Additional Past Surgical Histo: duodenal surg Smoking: Non-smoker Alcohol Use: None Drug Use: None Adult General Chief Complaint Chief Complaint: HYPOGLYCEMIA [facility] HPI Patient is a 53 year old male with history of schizophrenia and auditory hallucination and anorexia and frequent emergency room visits because of hypoglycemia brought in by EMS because of weakness and hypoglycemia. Patient states he woke up at 0830 and at 0845 had generalized weakness and called 911. EMS reported she had blood sugar of 54 and had oral glucose with improvement of his condition. Patient had blood sugar of 31 at arrival to ER without acute distress or confusion. Patient has had frequent emergency room visits because of hypoglycemia without having history of diabetes. Patient has auditory hallucination that commands him to not eat. He denies suicidal and homicidal ideation. Review of Systems Review of Systems Constitutional: Denies fever or chills , reports generalized weakness[] Eyes: Denies change in visual acuity, redness, or eye pain [] HENT: Denies nasal congestion or sore throat [] Respiratory: Denies cough or shortness of breath [] Cardiovascular: No additional information not addressed in HPI [] GI: Denies abdominal pain, nausea, vomiting, bloody stools or diarrhea [] : Denies dysuria or hematuria [] Musculoskeletal: Denies back pain or joint pain [] Integument: Denies rash or skin lesions [] Neurologic: Denies headache, focal weakness or sensory changes [] Endocrine: Denies polyuria or polydipsia [] All other systems were reviewed and found to be within normal limits, except as documented in this note. Current Medications Current Medications Current Medications Medications (Trade) Dose Ordered Sig/Tomasz Start Time Stop Time Status Last Admin Dose Admin Dextrose 1,000 ml @ 100 mls/hr 1X ONCE 07/29/18 10:15 07/29/18 20:14 07/29/18 10:13 100 MLS/HR Glucagon (Glucagen Kit) 1 mg 1X ONCE 07/29/18 10:15 07/29/18 10:16 DC Glucose (Insta-Glucose) 15 gm 1X ONCE 07/29/18 10:15 07/29/18 10:16 DC Allergies Allergies Allergies Coded Allergies Type Severity Reaction Last Updated Verified aspirin Allergy Intermediate bleeding 1/11/19 Yes I S O L A T I O N *CONTACT* Allergy Unknown 04/10/18 Yes Physical Exam Physical Exam Constitutional: Under nourished, very thin, mild distress, non-toxic appearance. [] HENT: Normocephalic, atraumatic, bilateral external ears normal, oropharynx moist, no oral exudates, nose normal. [] Eyes: PERRLA, EOMI, conjunctiva normal, no discharge. [] Neck: Normal range of motion, no tenderness, supple, no stridor. [] Cardiovascular: Tachycardia, no murmur [] Lungs & Thorax: Bilateral breath sounds clear to auscultation [] Abdomen: Bowel sounds normal, soft, no tenderness, no masses, no pulsatile masses. [] Skin: Warm, dry, no erythema, no rash. [] Back: No tenderness, no CVA tenderness. [] Extremities: No tenderness, no cyanosis, no clubbing, ROM intact, no edema. [] Neurologic: Alert and oriented X 3, normal motor function, normal sensory function, no focal deficits noted. [] Psychologic: Affect is flat, normal mood. Current Patient Data Vital Signs Vital Signs Date Time Temp Pulse Resp B/P (MAP) Pulse Ox O2 Delivery O2 Flow Rate FiO2 07/29/18 10:19 66 16 99 Room Air Lab Results Laboratory Tests Test 07/29/18 10:26 07/29/18 10:59 White Blood Count 4.8 x10^3/uL (4.0-11.0) Red Blood Count 4.92 x10^6/uL (4.30-5.70) Hemoglobin 11.3 g/dL (13.0-17.5) L Hematocrit 36.3 % (39.0-53.0) L Mean Corpuscular Volume 74 fL (79-100) L Mean Corpuscular Hemoglobin 23 pg (25-35) L Mean Corpuscular Hemoglobin Concent 31 g/dL (31-37) Red Cell Distribution Width 19.7 % (11.5-14.5) H Platelet Count 339 x10^3/uL (140-400) Neutrophils (%) (Auto) 83 % (31-73) H Lymphocytes (%) (Auto) 10 % (24-48) L Monocytes (%) (Auto) 5 % (0-9) Eosinophils (%) (Auto) 1 % (0-3) Basophils (%) (Auto) 1 % (0-3) Neutrophils # (Auto) 4.0 x10^3uL (1.8-7.7) Lymphocytes # (Auto) 0.5 x10^3/uL (1.0-4.8) L Monocytes # (Auto) 0.2 x10^3/uL (0.0-1.1) Eosinophils # (Auto) 0.0 x10^3/uL (0.0-0.7) Basophils # (Auto) 0.1 x10^3/uL (0.0-0.2) Platelet Estimate Pending Sodium Level 137 mmol/L (136-145) Potassium Level 3.7 mmol/L (3.5-5.1) Chloride Level 99 mmol/L (98-107) Carbon Dioxide Level 21 mmol/L (21-32) Anion Gap 17 (6-14) H Blood Urea Nitrogen 17 mg/dL (8-26) Creatinine 1.0 mg/dL (0.7-1.3) Estimated GFR (Cockcroft-Gault) 78.8 BUN/Creatinine Ratio 17 (6-20) Glucose Level 115 mg/dL (70-99) H Calcium Level 8.3 mg/dL (8.5-10.1) L Magnesium Level 1.9 mg/dL (1.8-2.4) Total Bilirubin 0.6 mg/dL (0.2-1.0) Aspartate Amino Transferase (AST) 12 U/L (15-37) L Alanine Aminotransferase (ALT) 20 U/L (16-63) Alkaline Phosphatase 101 U/L (46-116) Total Protein 7.3 g/dL (6.4-8.2) Albumin 4.0 g/dL (3.4-5.0) Albumin/Globulin Ratio 1.2 (1.0-1.7) Glucose (Fingerstick) 71 mg/dL (70-99) EKG EKG [] Radiology/Procedures Radiology/Procedures [] Course & Med Decision Making Course & Med Decision Making Pertinent Labs reviewed. (See chart for details) Evaluation of patient in ER showed 53-year-old male patient with history of schizophrenia brought in by EMS because of hypoglycemia. Patient had blood sugar of 31 at arrival to ER and treated with oral glucose and. Patient is IV line was established about 20 minutes after arrival of patient to ER and had showed blood sugar of 151 but patient also had blood sugar of 71 after having D10. Patient had tachycardia and cyanotic extremity that improved with treatment of hypoglycemia. Sample for several insulin and C-peptide was obtained with concern for iatrogenic hypoglycemia. Dr. Morris accepted admission at 1142. Dragon Disclaimer Dragon Disclaimer This electronic medical record was generated, in whole or in part, using a voice recognition dictation system. Departure Departure: Impression: Primary Impression: Hypoglycemia Additional Impressions: Weakness Schizophrenia Anorexia Chronic anemia Disposition: 09 ADMITTED INPATIENT (at 1142) Admitting Physician: Srinivasan Morris (accepted admission at 1142) Condition: IMPROVED Referrals: CRISS POWER MD (PCP) Problem Qualifiers SANJAY MARIE MD Jul 29, 2018 11:49
[2018-07-29 12:34] LABS: ANISOCYTOSIS SLIGHT; OVALOCYTES FEW; PLATELET CLUMP PRESENT; PLT ESTIMATE ADEQUATE (ADEQUATE); POLYCHROMASIA SLIGHT; SCHISTOCYTES OCC; TEAR DROP CELLS FEW
[2018-07-29 14:33] VITALS: BP 145/73
--- NOTE | 2018-07-29 17:07 | HP ---
ADMIT DATE: 07/29/2018 HISTORY OF PRESENT ILLNESS: The patient a 53-year-old male patient who yet again came to the Emergency Room with hypoglycemia as he was brought in by the emergency medical service because of weakness and hypoglycemia. The patient stated that he woke up around 8:30 and about 08:45 he had developed generalized weakness and called 911. The emergency medical service personnel reported that his blood sugar was 54 and had oral glucose with improvement of his condition. The patient has blood sugar of 31 on arrival to the Emergency Room without acute distress or confusion. The patient has frequent Emergency Room visits because of hypoglycemia without having history of diabetes. He does have history of auditory hallucination that commands him not to eat. In fact, it command him not talk to his brother and I attempted to transfer him to [facility] and, although they have refused him, he himself was not willing to go there. I have made an appointment for him to be seen by Dr. Anthony Landis, an efficiency miner blasting at [facility] and he said his voices would not allow him to go. In fact even this afternoon, we discussed with him the option of being transferred to [facility] and he said that his voices are not allowing him to do that and they stated that the hypoglycemia will end at the end of this month. PAST MEDICAL HISTORY: Significant for chronic schizophrenia. 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 He has hypothyroidism as well as Raynaud's phenomenon. I did check before his insulin and C-peptide and his insulin was inappropriately high; however, he refused to go and see Dr. Anthony Landis at his office in [facility]. PAST SURGICAL HISTORY: Significant for tonsillectomy, periumbilical hernia repair, tooth extraction, esophagogastroduodenoscopy and colonoscopy. ALLERGIES: HE IS ALLERGIC TO ASPIRIN HE BLEEDS. MEDICATIONS: He is on Abilify injection once a month. He does not take any other medication. He does not smoke or drink alcohol. FAMILY HISTORY: He has 2 brothers, 1 older and 1 younger. His voices tell him when he can talk to them and we not talk to him. According to him, he has not seen his father since 1985. His mother at age of 66 because of diverticulitis. SOCIAL HISTORY: He is single, has no children, has never been . He does not smoke, drink alcohol or use recreational drugs. He is on disability. REVIEW OF SYSTEMS: As per history of present illness. PHYSICAL EXAMINATION GENERAL: When I examined him this morning, he looked well and was clearly in no apparent respiratory distress, pale, cachectic, but no jaundice, cyanosis or thyromegaly. No jugular venous distention. No limb edema. VITAL SIGNS: Heart rate was 63, blood pressure 119/68, temperature was 97.7, respiratory rate was 20, and oxygen saturation was 100% on room air. HEAD, EYES, EARS, NOSE AND THROAT: Showed normocephalic, atraumatic. NECK: Supple. HEART: Showed normal first and second heart sounds. No gallop, rub or murmur. CHEST: Clear to auscultation. No crepitation or rhonchi. ABDOMEN: Scaphoid, soft, nontender. No guarding or rigidity. No organomegaly. Hernial orifice intact. Bowel sounds normal. NEUROLOGIC: He was awake, alert, but obviously has rational in his thinking. All his cranial nerves are intact. EXTREMITIES: He moves extremities without difficulty, ambulates without assistance or assistive devices. LABORATORY WORK: Showed a white cell count 5700, hemoglobin 13, hematocrit 42, MCV 75 and platelet count 316,000. His chemistry this morning showed a serum sodium 137, potassium 3.7, chloride 99, bicarbonate 21, anion gap of 17, BUN 17, creatinine 1, estimated GFR was 78 mL per minute, his glucose 115, calcium was 8.3, magnesium was 1.9. Total bilirubin, AST, ALT, alkaline phosphatase were normal. In fact, his blood sugar when he arrived was 71. I discussed with him the option of be transferred to [facility]. He said the voices will not allow him. I am really have no idea what else can be done for him. Definitely on his last visit, we checked his insulin and C-peptide with a blood sugar of 22 and definitely his insulin was inappropriately high. LEONA BOSCH MD DR: MAYITO/jyoti JOB#: [id number] / [id number]
[2018-07-29 19:44] VITALS: BP 137/69
[2018-07-29] MEDS ORDERED: risperiDONE 1 MG TABLET. PO SCH (21:00)
--- NOTE | 2018-07-29 22:30 | PDOC ---
Exam Note: Quirino Note: Please also refer to the separate dictated note~for this date of service dictated separately. Discussed the patient with Nursing staff reviewed the chart.~Reviewed interim history and current functioning. Reviewed vital signs,~ Labs/ Radiology~and current medications noted below. Continue current treatment with the changes noted in the dictated addendum note Assessment: Vital Signs: Vital Signs Date Time Temp Pulse Resp B/P (MAP) Pulse Ox O2 Delivery O2 Flow Rate FiO2 07/29/18 19:44 98.1 74 20 137/69 (91) 99 Room Air Labs: Laboratory Tests Test 07/29/18 10:26 07/29/18 10:59 07/29/18 13:24 07/29/18 13:28 White Blood Count 4.8 x10^3/uL (4.0-11.0) Red Blood Count 4.92 x10^6/uL (4.30-5.70) Hemoglobin 11.3 g/dL (13.0-17.5) L Hematocrit 36.3 % (39.0-53.0) L Mean Corpuscular Volume 74 fL (79-100) L Mean Corpuscular Hemoglobin 23 pg (25-35) L Mean Corpuscular Hemoglobin Concent 31 g/dL (31-37) Red Cell Distribution Width 19.7 % (11.5-14.5) H Platelet Count 339 x10^3/uL (140-400) Neutrophils (%) (Auto) 83 % (31-73) H Lymphocytes (%) (Auto) 10 % (24-48) L Monocytes (%) (Auto) 5 % (0-9) Eosinophils (%) (Auto) 1 % (0-3) Basophils (%) (Auto) 1 % (0-3) Neutrophils # (Auto) 4.0 x10^3uL (1.8-7.7) Lymphocytes # (Auto) 0.5 x10^3/uL (1.0-4.8) L Monocytes # (Auto) 0.2 x10^3/uL (0.0-1.1) Eosinophils # (Auto) 0.0 x10^3/uL (0.0-0.7) Basophils # (Auto) 0.1 x10^3/uL (0.0-0.2) Platelet Estimate Adequate (ADEQUATE) Platelet Clumps, EDTA Present Polychromasia Slight Anisocytosis Slight Tear Drop Cells Few Ovalocytes Few Schistocytes Occ Sodium Level 137 mmol/L (136-145) Potassium Level 3.7 mmol/L (3.5-5.1) Chloride Level 99 mmol/L (98-107) Carbon Dioxide Level 21 mmol/L (21-32) Anion Gap 17 (6-14) H Blood Urea Nitrogen 17 mg/dL (8-26) Creatinine 1.0 mg/dL (0.7-1.3) Estimated GFR (Cockcroft-Gault) 78.8 BUN/Creatinine Ratio 17 (6-20) Glucose Level 115 mg/dL (70-99) H Calcium Level 8.3 mg/dL (8.5-10.1) L Magnesium Level 1.9 mg/dL (1.8-2.4) Total Bilirubin 0.6 mg/dL (0.2-1.0) Aspartate Amino Transferase (AST) 12 U/L (15-37) L Alanine Aminotransferase (ALT) 20 U/L (16-63) Alkaline Phosphatase 101 U/L (46-116) Total Protein 7.3 g/dL (6.4-8.2) Albumin 4.0 g/dL (3.4-5.0) Albumin/Globulin Ratio 1.2 (1.0-1.7) Glucose (Fingerstick) 71 mg/dL (70-99) 209 mg/dL (70-99) H Nasal Screen MRSA (PCR) Negative (Negative) Test 07/29/18 19:36 Glucose (Fingerstick) 79 mg/dL (70-99) Current Medications: Meds: Current Medications Dextrose 25 gm 1X ONCE IV ; Start 07/29/18 at 10:00; Stop 07/29/18 at 10:11; Status DC Glucagon (Glucagen Kit) 1 mg 1X ONCE IM ; Start 07/29/18 at 10:15; Stop at 10:16; Status DC Glucose (Insta-Glucose) 15 gm 1X ONCE PO ; Start 07/29/18 at 10:15; Stop at 10:16; Status DC Dextrose 1,000 ml @ 100 mls/hr 1X ONCE IV Last administered on 07/29/18at 10: 13; Start 07/29/18 at 10:15; Stop 07/29/18 at 20:14; Status DC Risperidone (RisperDAL) 1 mg QHS PO Last administered on 07/29/18at 21:39; Start 07/29/18 at 21:00 Active Scripts Active Reported Abilify Maintena (Aripiprazole) 400 Mg Suser.vial 400 Mg IM QMONTH I have reviewed the current psychotropics carefully including drug interactions. Risk benefit ratio favors no change other than as noted in my dictated progress note. Diagnosis: Problems: (1) Schizoaffective disorder (2) Rrtjs-Lhcim-Sukky disease (3) Microcytic anemia (4) Elevated troponin I level (5) Auditory hallucinations (6) Chest pain (7) Arthralgia (8) Pain in finger of left hand (9) Tinea pedis (10) Dyspnea (11) Flank pain (12) Hip pain (13) Constipation (14) Lightheadedness (15) Acute bronchitis (16) Chronic constipation (17) Pain in the abdomen (18) Weakness (19) Hematemesis (20) Right leg pain (21) Elevated CK (22) Elevated CK-MB level (23) Nausea (24) Abrasion (25) Constipation (26) Abdominal pain (27) Anemia (28) Spitting up blood (29) Acute anterior epistaxis (30) Lower extremity cellulitis (31) Iron deficiency anemia (32) Anorexia (33) Schizophrenia (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
[2018-07-29 22:35] VITALS: BP 141/74
--- NOTE | 2018-07-30 01:02 | CONS ---
DATE OF CONSULTATION: 07/29/2018 IDENTIFYING DATA: The patient is a 53-year-old male seen in the ICU at [facility] for a psychiatric consult requested by Dr. Morris for further management of the patient's schizophrenia, chronic, undifferentiated type versus paranoid type. The patient is being treated at the [facility] and is on Abilify Maintena by Geovanni Jackson APRN. He has been a frequent visitor to the Emergency Room at [facility] and is admitted once again for recurrent hypoglycemia. CHIEF COMPLAINT: "The voices tell me not to eat. It will get better on 08/07/2017. Voices tell me that I cannot go to [facility] or to ." HISTORY OF PRESENT ILLNESS: The patient has a long history of schizophrenia, chronic, undifferentiated versus paranoid. He has been outpatient at the [facility] with Geovanni Jackson APRN, but is a frequent repeat admission at this facility due to recurrent hypoglycemia consequent to not eating. He does live in an independent apartment behind [facility] and uses public transportation or walks to the store for all his daily needs. With the weather bad, this has been of more overwhelming for him and an added stressor worsening his psychotic symptoms. No clear suicidal or homicidal ideation other than to the extent that the recurrent hypoglycemia could be significantly detrimental to him. No alcohol or drug abuse history. He describes the voices are 2 different voices, the one started in 2001 and the other in 2004 and states all his symptoms initially started in 1994 after he dropped ____ bleach on his jacket and inhaled the fumes. PAST MEDICAL HISTORY: Positive for recurrent hypoglycemia as noted above. He also has Xanlv-Rubfq-Nffug disease with current GI bleed, microscopic hypochromic anemia, thrombocytosis, ovalocytosis. He has hypothyroidism, Raynaud's phenomenon. PAST SURGICAL HISTORY: Tonsillectomy, periumbilical hernia repair, tooth extraction, EGD and colonoscopy. ALLERGIES: ASPIRIN CAUSING BLEEDING. CURRENT PSYCHOTROPICS: Abilify Maintena q. monthly via the [facility]. Dosage is unclear at this stage. FAMILY HISTORY: Noncontributory. SOCIAL HISTORY: The patient states he has 2 brothers, but has had no contact with them because the voices tell him not to call them. Again, no alcohol or drug abuse history. MENTAL STATUS EXAMINATION: The patient was seen individually in the evening of 07/29/2018. He is reasonably oriented, somewhat defensive initially, but then verbal and open. Speech is coherent, abstraction fair, computation impaired, language function intact. Attention span short. He is quite verbal, open and forthcoming talking about the hallucinations. Again, no suicidal or homicidal ideation. He does seem somewhat distractible, but this was explained by his ongoing psychotic symptoms. IMPRESSION: Schizoaffective disorder, bipolar type, mixed with psychotic features versus schizophrenia, chronic paranoid with acute exacerbation versus undifferentiated with acute exacerbation. Rest diagnoses as noted above including recurrent hypoglycemia. RECOMMENDATION: From a psychiatric standpoint despite the Abilify Maintena, the patient remains quite psychotic. I typically do not like to use 2 atypicals in combination, but given his ongoing psychosis, repeated hospitalizations, refusal to follow through with any treatment, I do feel he needs a more robust antipsychotic. He states he was unable to tolerate Haldol in the past and some other typical antipsychotics. We will start Risperdal 1 mg p.o. daily and nursing staff will [facility] to arrange for followup there. Dr. Morris, thank you for the opportunity to participate in your patient's care. We will follow with you. NAWAF ALEJO MD DR: JARETH/jyoti JOB#: [id number] / [id number]
[2018-07-30 05:19] VITALS: BP 127/66
[2018-07-30 05:30] LABS: BACTERIA,URINE 0 /HPF (0-FEW); BILIRUBIN,URINE NEG (NEG); CLARITY,URINE CLEAR; COLOR,URINE YELLOW; GLUCOSE,URINE 250 mg/dL (NEG); NITRITE,URINE NEG (NEG); RBC,URINE 0 /HPF (0-2); SQUAMOUS EPITHELIAL CELL,UR OCC /LPF; UROBILINOGEN,URINE 1 mg/dL (0.2 mg/dL); WBC,URINE OCC /HPF (0-4)
[2018-07-30 11:00] VITALS: BP 115/62
[2018-07-30 11:09] LABS: INSULIN LEVEL 24.6 uIU/mL (2.6-24.9)
[2018-07-30 15:00] VITALS: BP 118/58
[2018-07-30] MEDS ORDERED: RISP1TAB43 PO (17:24)
--- NOTE | 2018-07-30 17:51 | PDOC ---
Exam Note: Quirino Note: Please also refer to the separate dictated note~for this date of service dictated separately.~Patient seen individually. Discussed the patient with Nursing staff reviewed the chart.~Reviewed interim history and current functioning. Reviewed vital signs,~Labs/ Radiology~and current medications noted below. Continue current treatment with the changes noted in the dictated addendum note Assessment: Vital Signs: Vital Signs Date Time Temp Pulse Resp B/P (MAP) Pulse Ox O2 Delivery O2 Flow Rate FiO2 07/30/18 15:00 60 18 118/58 (78) 97 Room Air 07/30/18 11:00 98.2 I&O Intake and Output 07/30/18 07:01 Intake Total 1750 ml Balance 1750 ml Intake Oral 1200 ml IV Total 550 ml # Voids 5 Labs: Laboratory Tests Test 07/29/18 19:36 07/30/18 05:15 07/30/18 07:52 Glucose (Fingerstick) 79 mg/dL (70-99) 87 mg/dL (70-99) Urine Collection Type Unknown Urine Color Yellow Urine Clarity Clear Urine pH 6.0 Urine Specific Ewen 1.015 Urine Protein Neg (NEG-TRACE) Urine Glucose (UA) 250 mg/dL (NEG) Urine Ketones (Stick) Neg mg/dL (NEG) Urine Blood Neg (NEG) Urine Nitrite Neg (NEG) Urine Bilirubin Neg (NEG) Urine Urobilinogen Dipstick 1 mg/dL (0.2 mg/dL) Urine Leukocyte Esterase Neg (NEG) Urine RBC 0 /HPF (0-2) Urine WBC Occ /HPF (0-4) Urine Squamous Epithelial Cells Occ /LPF Urine Bacteria 0 /HPF (0-FEW) Current Medications: Meds: Current Medications Dextrose 25 gm 1X ONCE IV ; Start 07/29/18 at 10:00; Stop 07/29/18 at 10:11; Status DC Glucagon (Glucagen Kit) 1 mg 1X ONCE IM ; Start 07/29/18 at 10:15; Stop at 10:16; Status DC Glucose (Insta-Glucose) 15 gm 1X ONCE PO ; Start 07/29/18 at 10:15; Stop at 10:16; Status DC Dextrose 1,000 ml @ 100 mls/hr 1X ONCE IV Last administered on 07/29/18at 10: 13; Start 07/29/18 at 10:15; Stop 07/29/18 at 20:14; Status DC Risperidone (RisperDAL) 1 mg QHS PO Last administered on 07/29/18at 21:39; Start 07/29/18 at 21:00 Active Scripts Active Reported Risperdal (Risperidone) 1 Mg Tablet 1 Mg PO QHS PRN Abilify Maintena (Aripiprazole) 400 Mg Suser.vial 400 Mg IM QMONTH I have reviewed the current psychotropics carefully including drug interactions. Risk benefit ratio favors no change other than as noted in my dictated progress note. Diagnosis: Problems: (1) Chronic schizophrenia (2) Hypoglycemia (3) Schizoaffective disorder (4) Auditory hallucinations NAWAF ALEJO MD Jul 30, 2018 17:51
--- NOTE | 2018-07-30 18:27 | DS ---
DATE OF DISCHARGE: 07/30/2018 HOSPITAL COURSE: The patient is a 53-year-old male patient who yet again came with weakness and again was found to have hypoglycemia. We did check his serum insulin and C-peptide on arrival to the Emergency Room; however, again his voices are still commanding and controlling him and I offered to contact the [facility] in [facility] to transfer him there and he refused. He initially was given 50 mL of 50% dextrose and was fed and his blood sugar has remained stable. Throughout his stay in the hospital, has no further episodes of hypoglycemia and his blood sugar has ranged between 71-87 and on when arrival, his blood sugar was only 31 mg/dL. PHYSICAL EXAMINATION: GENERAL: When I examined today, he looked well and was clearly in no apparent respiratory distress, pale, cachectic, but no jaundice, cyanosis, or thyromegaly. No jugular venous distension. No limb edema. VITAL SIGNS: His heart rate was 60, blood pressure 118/58, temperature was 98.2, respiratory rate was 18 and oxygen saturation was 97%. The rest of clinical examination is unremarkable. LABORATORY DATA: His lab work has been stable. He was discharged to go and continue on ____. He was seen by Dr. Coats, who recommended starting him on risperidone 1 mg at bedtime. I will give him a prescription for that. I am not sure how compliant will he be and whether that will alter or at least decrease the controlling effect of voices. I will give him prescription for risperidone 1 mg p.o. daily. We will arrange for him to follow with the [facility]. LEONA BOSCH MD DR: MAYITO/jyoti JOB#: [id number] / [id number]
== END 2018-07-30 18:00 | disposition home or self-care (01) | DRG 641 ==
LOC: ER 09:40 → ICU 12:24
PROVIDERS: ADMIT Internal Medicine; ATTEND Internal Medicine
DX: E16.2 Hypoglycemia, unspecified (principal); K92.0 Hematemesis; L03.119 Cellulitis of unspecified part of limb; B35.3 Tinea pedis; D50.9 Iron deficiency anemia, unspecified; E03.9 Hypothyroidism, unspecified; F25.0 Schizoaffective disorder, bipolar type; I73.00 Raynaud's syndrome without gangrene; I78.0 Hereditary hemorrhagic telangiectasia; J20.9 Acute bronchitis, unspecified; K59.09 Other constipation; R04.0 Epistaxis
CPT/HCPCS: 36415; 80053; 81001; 82947; 83525; 83735; 84681; 85025; 87641; 96360; 96361; 99285-25

== ENCOUNTER 2018-09-19 05:51 | Emergency (ER) | payer OTHER ==
[~2018-09-19] VITALS: Ht 180.3 cm; Wt 64.0 kg
[~2018-09-19 05:51] MED LIST changes: +RISP1TAB43 PO
--- NOTE | 2018-09-19 06:21 | PHYS DOC ---
Past History Past Medical History: Anemia, Bronchitis, Depression, DVT, GERD, Schizophrenia , Other Additional Past Medical Histor: Vlsjw-Ghsnp-Qcejz Dz, Past Surgical History: Tonsillectomy Additional Past Surgical Histo: duodenal surg Smoking: Non-smoker Alcohol Use: None Drug Use: None Adult General Chief Complaint Chief Complaint: OTHER COMPLAINTS HPI HPI Patient is a 53 year old male who presents with complaint of bleeding. Patient states he woke this morning with a "half a mouthful of blood." This was cleared prior to arrival. Patient was brought to the emergency department by EMS for further evaluation. Patient does admit to mild fatigue at this time but no other complaints. Patient has history of hereditary hemorrhagic telangiectasia. Has had previous bleeding episodes in the past and states that he has daily nosebleeds associated with his condition. Denies any fever, vomiting, shortness of breath, chest pain, abdominal pain, or bloody stools. Review of Systems Review of Systems Constitutional: Denies fever or chills [] Eyes: Denies change in visual acuity, redness, or eye pain [] HENT: Epistaxis[] Respiratory: Denies cough or shortness of breath [] Cardiovascular: Denies chest pain or edema[] GI: Denies abdominal pain, nausea, vomiting, bloody stools or diarrhea [] : Denies dysuria or hematuria [] Musculoskeletal: Denies back pain or joint pain [] Integument: Denies rash or skin lesions [] Neurologic: Denies headache, focal weakness or sensory changes [] Endocrine: Denies polyuria or polydipsia [] All other systems were reviewed and found to be within normal limits, except as documented in this note. Current Medications Current Medications Current Medications Medications (Trade) Dose Ordered Sig/Tomasz Start Time Stop Time Status Last Admin Dose Admin Sodium Chloride 1,000 ml @ 1,000 mls/hr Q1H 09/19/18 06:30 09/19/18 07:29 Allergies Allergies Allergies Coded Allergies Type Severity Reaction Last Updated Verified aspirin Allergy Intermediate bleeding 07/17/18 Yes I S O L A T I O N *CONTACT* Allergy Unknown 04/10/18 Yes Physical Exam Physical Exam Constitutional: Alert, afebrile, no acute distress. [] HENT: Normocephalic, atraumatic, bilateral external ears normal, oropharynx moist, multiple telangiectasias noted in oral and nasal mucosa, dried blood present in right near with no active bleeding, no oral exudates, nose normal. [] Eyes: PERRLA, EOMI, conjunctiva normal, no discharge. [] Neck: Normal range of motion, no tenderness, supple, no stridor. [] Cardiovascular:Heart rate regular rhythm, no murmur [] Lungs & Thorax: Bilateral breath sounds clear to auscultation [] Abdomen: Bowel sounds normal, soft, no tenderness, no masses, no pulsatile masses. [] Skin: Warm, dry, no erythema, no rash. [] Back: No tenderness, no CVA tenderness. [] Extremities: No tenderness, no cyanosis, no clubbing, ROM intact, no edema. [] Neurologic: Alert and oriented X 3, normal motor function, normal sensory function, no focal deficits noted. [] Current Patient Data Vital Signs Vital Signs Date Time Temp Pulse Resp B/P (MAP) Pulse Ox O2 Delivery O2 Flow Rate FiO2 09/19/18 06:00 97.8 71 18 99 Room Air Lab Results Laboratory Tests Test 09/19/18 06:40 09/19/18 06:47 White Blood Count 5.7 x10^3/uL Red Blood Count 5.57 x10^6/uL Hemoglobin 11.7 g/dL Hematocrit 37.8 % Mean Corpuscular Volume 68 fL Mean Corpuscular Hemoglobin 21 pg Mean Corpuscular Hemoglobin Concent 31 g/dL Red Cell Distribution Width 18.5 % Platelet Count 369 x10^3/uL Neutrophils (%) (Auto) 71 % Lymphocytes (%) (Auto) 18 % Monocytes (%) (Auto) 7 % Eosinophils (%) (Auto) 4 % Basophils (%) (Auto) 1 % Neutrophils # (Auto) 4.0 x10^3uL Lymphocytes # (Auto) 1.0 x10^3/uL Monocytes # (Auto) 0.4 x10^3/uL Eosinophils # (Auto) 0.2 x10^3/uL Basophils # (Auto) 0.0 x10^3/uL Platelet Estimate Adequate Hypochromasia Slight Poikilocytosis Mod Anisocytosis Mod Microcytosis Mod Prothrombin Time 10.9 SEC Prothromb Time International Ratio 1.1 Activated Partial Thromboplast Time 28 SEC Sodium Level 140 mmol/L Potassium Level 4.5 mmol/L Chloride Level 103 mmol/L Carbon Dioxide Level 31 mmol/L Anion Gap 6 Blood Urea Nitrogen 17 mg/dL Creatinine 1.0 mg/dL Estimated GFR (Cockcroft-Gault) 78.8 BUN/Creatinine Ratio 17 Glucose Level 81 mg/dL Calcium Level 9.0 mg/dL Total Bilirubin 0.5 mg/dL Aspartate Amino Transf (AST/SGOT) 25 U/L Alanine Aminotransferase (ALT/SGPT) 18 U/L Alkaline Phosphatase 103 U/L Total Protein 8.0 g/dL Albumin 4.4 g/dL Albumin/Globulin Ratio 1.2 Glucose (Fingerstick) 64 mg/dL Current Medications Medications (Trade) Dose Ordered Sig/Tomasz Route PRN Reason Start Time Stop Time Status Last Admin Dose Admin Sodium Chloride 1,000 ml @ 1,000 mls/hr Q1H IV 09/19/18 06:30 09/19/18 07:29 DC 09/19/18 07:19 EKG EKG Not performed[] Radiology/Procedures Radiology/Procedures Not performed[] Course & Med Decision Making Course & Med Decision Making Pertinent Labs and Imaging studies reviewed. (See chart for details) Patient observed in the emergency department with no further episodes of bleeding noted. Blood sugar found to be mildly decreased. Patient was given juice and boxed lunch in the emergency department with improvement of blood sugar levels from 64-74. Patient with no complaints at this time. Recommended use of nasal saline to help moisturize nasal passages and help prevent further nosebleeds. Recommended follow-up with primary doctor in the next 5 days for reevaluation and return to emergency department for any worsening symptoms. Patient was understanding and in agreement with treatment plan.[] Dragon Disclaimer Dragon Disclaimer This electronic medical record was generated, in whole or in part, using a voice recognition dictation system. Departure Departure: Impression: Primary Impression: Acute anterior epistaxis Additional Impression: Ikeao-Wjoii-Rfvww disease Disposition: HOME, SELF-CARE Condition: IMPROVED Referrals: CRISS POWER MD (PCP) Patient Instructions: Nosebleed, [id number] Additional Instructions: Follow-up with your primary doctor in the next 5 days for reevaluation. His recommended that you use nasal saline spray to help moisturize your nasal passages and help prevent further episodes of bleeding. Return to the emergency department for any worsening symptoms. Problem Qualifiers EDILMA WARNER MD Sep 19, 2018 06:21
[2018-09-19] MEDS ORDERED: IV NORMAL SALINE 1,000ML 1,000 ML IV SCH (06:30)
[2018-09-19 06:56] LABS: BASO % 1 % (0-3); EOS # 0.2 x10^3/uL (0.0-0.7); EOS % 4 % (0-3); HEMATOCRIT 37.8 % (39.0-53.0); HEMOGLOBIN 11.7 g/dL (13.0-17.5); LYMPH % 18 % (24-48); MEAN CORPUSCULAR HEMOGLOBIN 21 pg (25-35); MEAN CORPUSCULAR HGB CONC 31 g/dL (31-37); MEAN CORPUSCULAR VOLUME 68 fL (79-100); MONO # 0.4 x10^3/uL (0.0-1.1); MONO % 7 % (0-9); NEUT % 71 % (31-73); PLATELET COUNT 369 x10^3/uL (140-400); RED BLOOD COUNT 5.57 x10^6/uL (4.30-5.70); RED CELL DISTRIBUTION WIDTH 18.5 % (11.5-14.5); WHITE BLOOD COUNT 5.7 x10^3/uL (4.0-11.0)
[2018-09-19 07:11] LABS: ALBUMIN 4.4 g/dL (3.4-5.0); ALBUMIN/GLOBULIN RATIO 1.2 (1.0-1.7); GFR 78.8; POTASSIUM 4.5 mmol/L (3.5-5.1); TOTAL BILIRUBIN 0.5 mg/dL (0.2-1.0)
[2018-09-19 08:01] LABS: ANISOCYTOSIS MOD; HYPOCHROMIA SLIGHT; MICROCYTOSIS MOD; PLT ESTIMATE ADEQUATE (ADEQUATE); POIKILOCYTOSIS MOD
[2018-09-19 08:09] VITALS: BP 120/67
== END 2018-09-19 08:25 | disposition home or self-care (01) ==
LOC: ER 05:51
DX: R04.0 Epistaxis (principal); I78.0 Hereditary hemorrhagic telangiectasia; F32.9 Major depressive disorder, single episode, unspecified; K21.9 Gastro-esophageal reflux disease without esophagitis; F20.9 Schizophrenia, unspecified; Z86.718 Personal history of other venous thrombosis and embolism; Z86.2 Personal history of diseases of the blood and blood-forming organs and certain disorders involving the immune mechanism; Z88.6 Allergy status to analgesic agent; Z91.041 Radiographic dye allergy status
CPT/HCPCS: 36415; 80053; 82947; 85025; 85610; 85730; 99283-25; J7030

== ENCOUNTER 2018-10-14 20:07 | Emergency (ER) | payer OTHER ==
[~2018-10-14] VITALS: Ht 180.3 cm; Wt 63.5 kg
[2018-10-14 20:15] VITALS: BP 112/58
--- NOTE | 2018-10-14 20:26 | ED.ADGEN ---
Past History Past Medical History: Anemia, Bronchitis, Depression, DVT, GERD, GI Bleed, Schizophrenia, Other Additional Past Medical Histor: Sxrpd-Uoauk-Xnnbv Dz, Past Surgical History: Tonsillectomy Additional Past Surgical Histo: duodenal surg Smoking: Non-smoker Alcohol Use: None Drug Use: None Adult General Chief Complaint Chief Complaint ".. My stomach hurts.. " ( Pt. point to umbilicus) [facility] HPI Patient is a 53 year old MALE schizophrenic who presents with above hx and complaints mid abdomen pain. Patient last ate approximately 6 donuts at noon today. Patient denies any hard stools. Patient has had some bright red blood per rectum with stooling. No black or tarry stools. Patient has not kept Follow -ups with Dr. Walls because the "Voices" tell him not to follow-up. Patient reportedly has been showing for his monthly injections of Abilify at the counseling center. Patient has known schizophrenic been somewhat noncompliant in the past with a psychiatric meds. Patient states the "Voices" has not changed in character or demands in the past 6 months. Patient denies any suicidal ideation or homicidal ideation. 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 Pt has hx , Raynaud, Hypo Thyroid, Recurrent constipation, Gastritis and Non-compliance. Pt. currently assigned to Dr. Walls as a primary. Review of Systems Review of Systems Constitutional: Denies fever or chills [] Eyes: Denies change in visual acuity, redness, or eye pain [] HENT: Denies nasal congestion or sore throat [] Respiratory: Denies cough or shortness of breath [] Cardiovascular: No additional information not addressed in HPI [] GI: Complaints of mid abdominal pain. Denies, nausea, vomiting, diarrhea ,[] history of bright red blood with hard stool : Denies dysuria or hematuria [] Musculoskeletal: Denies back pain or joint pain [] Integument: Denies rash or skin lesions [] Neurologic: Denies headache, focal weakness or sensory changes [] Endocrine: Denies polyuria or polydipsia [] All other systems were reviewed and found to be within normal limits, except as documented in this note. Family History Family History Noncontributory Current Medications Current Medications Current Medications Medications (Trade) Dose Ordered Sig/Tomasz Start Time Stop Time Status Last Admin Dose Admin Acetaminophen (Tylenol) 1,000 mg 1X ONCE 10/14/18 21:30 10/14/18 21:31 DC 10/14/18 21:30 1,000 MG Famotidine (Pepcid) 20 mg 1X ONCE 10/14/18 21:00 10/14/18 21:01 DC 10/14/18 20:49 20 MG Lactated Ringer's 1,000 ml @ 1,000 mls/hr Q1H 10/14/18 20:39 10/14/18 21:32 DC 10/14/18 20:50 1,000 MLS/HR Magnesium Hydroxide (Milk Of Magnesia) 2,400 mg 1X ONCE 10/14/18 21:30 10/14/18 21:31 DC 10/14/18 21:30 2,400 MG Allergies Allergies Allergies Coded Allergies Type Severity Reaction Last Updated Verified aspirin Allergy Intermediate bleeding 07/17/18 Yes I S O L A T I O N *CONTACT* Allergy Unknown 04/10/18 Yes Physical Exam Physical Exam Constitutional: no acute distress, non-toxic appearance. [] HENT: Normocephalic, atraumatic, bilateral external ears normal, oropharynx moist, no oral exudates, nose normal. []Chronic lip lesions Eyes: PERRLA, EOMI, conjunctiva pale, no discharge. [] Neck: Normal range of motion, no tenderness, supple, no stridor. [] Cardiovascular: Bradycardia Heart rate regular rhythm, no murmur [] Lungs & Thorax: Bilateral breath sounds equal at apex on auscultation [] Abdomen: Bowel sounds normal, soft, no tenderness, no masses, no pulsatile masses. [] Old scar. Patient declines rectal at this time. Abdomen distended Skin: Warm, dry, no erythema, no rash. [] Back: No tenderness, no CVA tenderness. [] Extremities: No tenderness, no cyanosis, no clubbing, ROM intact, no edema. [] No psoas or rebound. Neurologic: Alert and oriented X 3, normal motor function, normal sensory function, no focal deficits noted. [] Psychologic: Affect anxious, still hearing voices-chronic hallucination, judgement normal, mood normal. []No suicidal or homicidal ideation Current Patient Data Vital Signs Vital Signs Date Time Temp Pulse Resp B/P (MAP) Pulse Ox O2 Delivery O2 Flow Rate FiO2 10/14/18 20:15 98.4 71 16 99 Room Air Lab Results Laboratory Tests Test 10/14/18 20:45 White Blood Count 5.8 x10^3/uL (4.0-11.0) Red Blood Count 4.80 x10^6/uL (4.30-5.70) Hemoglobin 9.5 g/dL (13.0-17.5) L Hematocrit 32.1 % (39.0-53.0) L Mean Corpuscular Volume 67 fL (79-100) L Mean Corpuscular Hemoglobin 20 pg (25-35) L Mean Corpuscular Hemoglobin Concent 30 g/dL (31-37) L Red Cell Distribution Width 19.3 % (11.5-14.5) H Platelet Count 380 x10^3/uL (140-400) Neutrophils (%) (Auto) 69 % (31-73) Lymphocytes (%) (Auto) 22 % (24-48) L Monocytes (%) (Auto) 6 % (0-9) Eosinophils (%) (Auto) 3 % (0-3) Basophils (%) (Auto) 1 % (0-3) Neutrophils # (Auto) 4.0 x10^3uL (1.8-7.7) Lymphocytes # (Auto) 1.3 x10^3/uL (1.0-4.8) Monocytes # (Auto) 0.4 x10^3/uL (0.0-1.1) Eosinophils # (Auto) 0.2 x10^3/uL (0.0-0.7) Basophils # (Auto) 0.0 x10^3/uL (0.0-0.2) Platelet Estimate Adequate (ADEQUATE) Hypochromasia Marked Poikilocytosis Mod Anisocytosis Slight Microcytosis Mod Tear Drop Cells Few Ovalocytes Mod Urine Collection Type Unknown Urine Color Yellow Urine Clarity Clear Urine pH 5.5 Urine Specific Morgan 1.025 Urine Protein Neg (NEG-TRACE) Urine Glucose (UA) 100 mg/dL (NEG) Urine Ketones (Stick) Trace mg/dL (NEG) Urine Blood Neg (NEG) Urine Nitrite Neg (NEG) Urine Bilirubin Neg (NEG) Urine Urobilinogen Dipstick 1 mg/dL (0.2 mg/dL) Urine Leukocyte Esterase Neg (NEG) Urine RBC Occ /HPF (0-2) Urine WBC Occ /HPF (0-4) Urine Squamous Epithelial Cells Occ /LPF Urine Bacteria 0 /HPF (0-FEW) Urine Mucus Mod /LPF Sodium Level 141 mmol/L (136-145) Potassium Level 3.5 mmol/L (3.5-5.1) Chloride Level 103 mmol/L (98-107) Carbon Dioxide Level 30 mmol/L (21-32) Anion Gap 8 (6-14) Blood Urea Nitrogen 15 mg/dL (8-26) Creatinine 1.1 mg/dL (0.7-1.3) Estimated GFR (Cockcroft-Gault) 70.6 Glucose Level 83 mg/dL (70-99) Calcium Level 8.6 mg/dL (8.5-10.1) Magnesium Level 1.9 mg/dL (1.8-2.4) Total Bilirubin 0.4 mg/dL (0.2-1.0) Direct Bilirubin 0.1 mg/dL (0.0-0.2) Aspartate Amino Transferase (AST) 31 U/L (15-37) Alanine Aminotransferase (ALT) 27 U/L (16-63) Alkaline Phosphatase 107 U/L (46-116) Troponin I Quantitative < 0.017 ng/mL (0-0.055) Total Protein 7.6 g/dL (6.4-8.2) Albumin 4.0 g/dL (3.4-5.0) Amylase Level 87 U/L (25-115) Lipase 247 U/L (73-393) EKG EKG My interpretation EKG shows a sinus bradycardia 56 bpm. An incomplete right bundle-branch block. No findings acute STEMI with contralateral changes.[] Radiology/Procedures Radiology/Procedures My interpretation of acute abdomen shows no acute cardiopulmonary findings. No free air in the diaphragm. Does have increased stool throughout the colon consistent with constipation.[] Course & Med Decision Making Course & Med Decision Making Pertinent Labs and Imaging studies reviewed. (See chart for details). Patient' s stay on a clear fluid diet only for the next 24 hours. Take Zantac 150 mg twice a day. Follow-up primary care. Keep follow-up with counseling center. Take a multivitamin. Re-exam no improvement. [] Final Impression Final Impression 1. Abdomen pain 2. Schizophrenia- 3. History Rtdtc-Txsrk-Nruzi Dz 4. Hx Raynaud 5. Hx. Hypothyroid [] 6. Hx. Gastritis 7. Hx. Chronic Anemia and Ovalocytes- Microcytic Hypochromic Hg. 9.5, 8. Constipation Dragon Disclaimer Dragon Disclaimer This electronic medical record was generated, in whole or in part, using a voice recognition dictation system. Discharge Summary Visit Information Final Diagnosis Problems Medical Problems: (1) Abdominal pain Status: Acute (2) Constipation Status: Acute Brief Hospital Course Allergies Allergies Coded Allergies Type Severity Reaction Last Updated Verified aspirin Allergy Intermediate bleeding 07/17/18 Yes I S O L A T I O N *CONTACT* Allergy Unknown 04/10/18 Yes Vital Signs Vital Signs Date Time Temp Pulse Resp B/P (MAP) Pulse Ox O2 Delivery O2 Flow Rate FiO2 10/14/18 20:15 98.4 71 16 99 Room Air Lab Results Laboratory Tests Test 10/14/18 20:45 White Blood Count 5.8 x10^3/uL (4.0-11.0) Red Blood Count 4.80 x10^6/uL (4.30-5.70) Hemoglobin 9.5 g/dL (13.0-17.5) Hematocrit 32.1 % (39.0-53.0) Mean Corpuscular Volume 67 fL (79-100) Mean Corpuscular Hemoglobin 20 pg (25-35) Mean Corpuscular Hemoglobin Concent 30 g/dL (31-37) Red Cell Distribution Width 19.3 % (11.5-14.5) Platelet Count 380 x10^3/uL (140-400) Neutrophils (%) (Auto) 69 % (31-73) Lymphocytes (%) (Auto) 22 % (24-48) Monocytes (%) (Auto) 6 % (0-9) Eosinophils (%) (Auto) 3 % (0-3) Basophils (%) (Auto) 1 % (0-3) Neutrophils # (Auto) 4.0 x10^3uL (1.8-7.7) Lymphocytes # (Auto) 1.3 x10^3/uL (1.0-4.8) Monocytes # (Auto) 0.4 x10^3/uL (0.0-1.1) Eosinophils # (Auto) 0.2 x10^3/uL (0.0-0.7) Basophils # (Auto) 0.0 x10^3/uL (0.0-0.2) Platelet Estimate Adequate (ADEQUATE) Hypochromasia Marked Poikilocytosis Mod Anisocytosis Slight Microcytosis Mod Tear Drop Cells Few Ovalocytes Mod Urine Collection Type Unknown Urine Color Yellow Urine Clarity Clear Urine pH 5.5 Urine Specific Morgan 1.025 Urine Protein Neg (NEG-TRACE) Urine Glucose (UA) 100 mg/dL (NEG) Urine Ketones (Stick) Trace mg/dL (NEG) Urine Blood Neg (NEG) Urine Nitrite Neg (NEG) Urine Bilirubin Neg (NEG) Urine Urobilinogen Dipstick 1 mg/dL (0.2 mg/dL) Urine Leukocyte Esterase Neg (NEG) Urine RBC Occ /HPF (0-2) Urine WBC Occ /HPF (0-4) Urine Squamous Epithelial Cells Occ /LPF Urine Bacteria 0 /HPF (0-FEW) Urine Mucus Mod /LPF Sodium Level 141 mmol/L (136-145) Potassium Level 3.5 mmol/L (3.5-5.1) Chloride Level 103 mmol/L (98-107) Carbon Dioxide Level 30 mmol/L (21-32) Anion Gap 8 (6-14) Blood Urea Nitrogen 15 mg/dL (8-26) Creatinine 1.1 mg/dL (0.7-1.3) Estimated GFR (Cockcroft-Gault) 70.6 Glucose Level 83 mg/dL (70-99) Calcium Level 8.6 mg/dL (8.5-10.1) Magnesium Level 1.9 mg/dL (1.8-2.4) Total Bilirubin 0.4 mg/dL (0.2-1.0) Direct Bilirubin 0.1 mg/dL (0.0-0.2) Aspartate Amino Transf (AST/SGOT) 31 U/L (15-37) Alanine Aminotransferase (ALT/SGPT) 27 U/L (16-63) Alkaline Phosphatase 107 U/L (46-116) Troponin I Quantitative < 0.017 ng/mL (0-0.055) Total Protein 7.6 g/dL (6.4-8.2) Albumin 4.0 g/dL (3.4-5.0) Amylase Level 87 U/L (25-115) Lipase 247 U/L (73-393) Brief Hospital Course Mr. Ortega is a 53 old male schizophrenic who presented with abd. pain. Discharge Information Condition at Discharge: Improved, Stable Disposition/Orders: D/C to Home Dischare Medications Current Medications Lactated Ringer's 1,000 ml @ 1,000 mls/hr Q1H IV Last administered on at 20:50; Admin Dose 1,000 MLS/HR; Start 10/14/18 at 20:39; Stop 10/14/18 at 21:32; Status DC Famotidine (Pepcid) 20 mg 1X ONCE PO Last administered on 10/14/18at 20:49; Admin Dose 20 MG; Start 10/14/18 at 21:00; Stop 10/14/18 at 21:01; Status DC Magnesium Hydroxide (Milk Of Magnesia) 2,400 mg 1X ONCE PO Last administered on 10/14/18at 21:30; Admin Dose 2,400 MG; Start 10/14/18 at 21:30; Stop 10/14/18 at 21:31; Status DC Acetaminophen (Tylenol) 1,000 mg 1X ONCE PO Last administered on 10/14/18at 21: 30; Admin Dose 1,000 MG; Start 10/14/18 at 21:30; Stop 10/14/18 at 21:31; Status DC Active Scripts Active Ra Tablet ( Vit/Iron Fumarate/Fa) 1 Each Tablet 1 Tab PO DAILY Zantac (Ranitidine Hcl) 150 Mg Tablet 150 Mg PO BID Reported Risperdal (Risperidone) 1 Mg Tablet 1 Mg PO QHS PRN Abilify Maintena (Aripiprazole) 400 Mg Suser.vial 400 Mg IM QMONTH Dragon Disclaimer This chart was dictated in whole or in part using Voice Recognition software in a busy, high-work load, and often noisy Emergency Department environment. It may contain unintended and wholly unrecognized errors or omissions. KENDELL STEWART MD Oct 14, 2018 20:26
[2018-10-14] MEDS ORDERED: IV RINGERS SOLUTION,LACTATED 1,000 ML IV SCH (20:39)
[2018-10-14 20:55] LABS: BASO % 1 % (0-3); EOS # 0.2 x10^3/uL (0.0-0.7); EOS % 3 % (0-3); HEMATOCRIT 32.1 % (39.0-53.0); HEMOGLOBIN 9.5 g/dL (13.0-17.5); LYMPH # 1.3 x10^3/uL (1.0-4.8); LYMPH % 22 % (24-48); MEAN CORPUSCULAR HEMOGLOBIN 20 pg (25-35); MEAN CORPUSCULAR HGB CONC 30 g/dL (31-37); MEAN CORPUSCULAR VOLUME 67 fL (79-100); MONO # 0.4 x10^3/uL (0.0-1.1); MONO % 6 % (0-9); NEUT % 69 % (31-73); PLATELET COUNT 380 x10^3/uL (140-400); RED CELL DISTRIBUTION WIDTH 19.3 % (11.5-14.5); WHITE BLOOD COUNT 5.8 x10^3/uL (4.0-11.0)
[2018-10-14] MEDS ORDERED: FAMOTIDINE 20 MG TABLET PO ONE (21:00)
[2018-10-14 21:05] LABS: BACTERIA,URINE 0 /HPF (0-FEW); BILIRUBIN,URINE NEG (NEG); CLARITY,URINE CLEAR; COLOR,URINE YELLOW; GLUCOSE,URINE 100 mg/dL (NEG); NITRITE,URINE NEG (NEG); RBC,URINE OCC /HPF (0-2); SQUAMOUS EPITHELIAL CELL,UR OCC /LPF; UROBILINOGEN,URINE 1 mg/dL (0.2 mg/dL); WBC,URINE OCC /HPF (0-4)
[2018-10-14 21:08] LABS: CALCIUM 8.6 mg/dL (8.5-10.1); CREATININE 1.1 mg/dL (0.7-1.3); DIRECT BILIRUBIN 0.1 mg/dL (0.0-0.2); GFR 70.6; MAGNESIUM 1.9 mg/dL (1.8-2.4); POTASSIUM 3.5 mmol/L (3.5-5.1); TOTAL BILIRUBIN 0.4 mg/dL (0.2-1.0); TOTAL PROTEIN 7.6 g/dL (6.4-8.2)
[2018-10-14 21:15] LABS: ANISOCYTOSIS SLIGHT; HYPOCHROMIA MARKED; MICROCYTOSIS MOD; PLT ESTIMATE ADEQUATE (ADEQUATE); POIKILOCYTOSIS MOD
[2018-10-14 21:16] LABS: OVALOCYTES MOD; TEAR DROP CELLS FEW
[2018-10-14] MEDS ORDERED: PREN1TAB25 PO (21:28)
[2018-10-14] MEDS ORDERED: RANI150T21 PO (21:28)
[2018-10-14] MEDS ORDERED: MAGNESIUM HYDROXIDE 2,400 MG/30 ML ORAL.SUSP. PO ONE (21:30)
[2018-10-14] MEDS ORDERED: ACETAMINOPHEN 500 MG TABLET PO ONE (21:30)
--- NOTE | 2018-10-15 06:58 | EKG ---
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
--- NOTE | 2018-10-15 07:44 | RAD ---
Examination: ACUTE ABDOMEN SERIES History: abdominal pain, hx of duodenal surgery in past as well as umbillical hernia repair Comparison/Correlation: 07/21/2018 CT abdomen and pelvis with contrast Findings: Frontal view of the chest, upright view of the abdomen, and supine view of the abdomen were provided. Heart size and pulmonary vasculature are normal. No infiltrate or pleural effusion. No pneumothorax. Fluid levels are present within nondistended bowel. No extraluminal gas. Indeterminate calcific density involves the left mid pelvic level. Impression: No infiltrate. Fluid levels in nondistended bowel. No evidence of obstruction. Findings may represent gastroenteritis. Electronically signed by: Gianni Juarez MD (10/15/2018 7:42 AM) [facility]
== END 2018-10-14 21:32 | disposition home or self-care (01) ==
LOC: ER 20:07
DX: K59.00 Constipation, unspecified (principal); K62.5 Hemorrhage of anus and rectum; F20.9 Schizophrenia, unspecified; I73.00 Raynaud's syndrome without gangrene; E03.9 Hypothyroidism, unspecified; I78.0 Hereditary hemorrhagic telangiectasia; K21.9 Gastro-esophageal reflux disease without esophagitis; Z86.718 Personal history of other venous thrombosis and embolism; Z86.2 Personal history of diseases of the blood and blood-forming organs and certain disorders involving the immune mechanism; Z88.6 Allergy status to analgesic agent; Z91.041 Radiographic dye allergy status
CPT/HCPCS: 36415; 74022; 80048; 80076; 81001; 82150; 83690; 83735; 84443; 84484; 85025; 93005; 99284; J7120

== ENCOUNTER 2018-10-17 08:32 | Emergency (ER) | payer OTHER ==
[~2018-10-17] VITALS: Ht 180.3 cm; Wt 55.0 kg
[~2018-10-17 08:32] MED LIST changes: +PREN1TAB25 PO; +RANI150T21 PO
[2018-10-17 08:44] VITALS: BP 108/59
--- NOTE | 2018-10-17 09:12 | PHYS DOC ---
Past History Past Medical History: Anemia, Bronchitis, Depression, DVT, GERD, GI Bleed, Schizophrenia, Other Additional Past Medical Histor: Hofvk-Zqldo-Wfdvc Dz, Past Surgical History: Tonsillectomy Additional Past Surgical Histo: duodenal surg Smoking: Non-smoker Alcohol Use: None Drug Use: None Adult General Chief Complaint Chief Complaint: FATIGUE HPI HPI Patient is a 53-year-old male who presents with fatigue. He has poor oral intake , relating that he only had a can of beans and a can of peaches as well as some ham to eat yesterday, and a little bit of ham so far today. Patient has a history of schizophrenia and the voices tell him not to eat. He notes that he recently took some milk of magnesia due to constipation issues and is having a small amount of diarrhea. No blood in the stool. No specific abdominal pain. Patient walked approximately a mile from his house to the emergency department this morning without any difficulty. Nothing seems to make the symptoms better or worse. Patient is followed by mental health for his schizophrenia.[] Review of Systems Review of Systems Constitutional: Denies fever or chills [] Eyes: Denies change in visual acuity, redness, or eye pain [] HENT: Denies nasal congestion or sore throat [] Respiratory: Denies cough or shortness of breath [] Cardiovascular: No chest pain or palpitations[] GI: See history of present illness[] : Denies dysuria or hematuria [] Musculoskeletal: Denies back pain or joint pain [] Integument: Denies rash or skin lesions [] Neurologic: Denies headache, focal weakness or sensory changes [] Endocrine: Denies polyuria or polydipsia [] All other systems were reviewed and found to be within normal limits, except as documented in this note. Allergies Allergies Allergies Coded Allergies Type Severity Reaction Last Updated Verified aspirin Allergy Intermediate bleeding 07/17/18 Yes I S O L A T I O N *CONTACT* Allergy Unknown 04/10/18 Yes Physical Exam Physical Exam Constitutional: Well developed, well nourished, no acute distress, non-toxic appearance. [] HENT: Normocephalic, atraumatic, bilateral external ears normal, oropharynx moist, no oral exudates, nose normal. [] Eyes: PERRLA, EOMI, conjunctiva normal, no discharge. [] Neck: Normal range of motion, no tenderness, supple, no stridor. [] Cardiovascular:Heart rate regular rhythm, no murmur [] Lungs & Thorax: Bilateral breath sounds clear to auscultation [] Abdomen: Bowel sounds normal, soft, no tenderness, no masses, no pulsatile masses. [] Skin: Warm, dry, no erythema, no rash. [] Back: No tenderness, no CVA tenderness. [] Extremities: No tenderness, no cyanosis, no clubbing, ROM intact, no edema. [] Neurologic: Alert and oriented X 3, normal motor function, normal sensory function, no focal deficits noted. [] Psychologic: Affect flat, no suicidal or homicidal ideations. [] Current Patient Data Vital Signs Vital Signs Date Time Temp Pulse Resp B/P (MAP) Pulse Ox O2 Delivery O2 Flow Rate FiO2 10/17/18 08:44 20 Room Air 10/17/18 08:44 97.4 75 99 Lab Results Laboratory Tests Test 10/17/18 08:38 Glucose (Fingerstick) 73 mg/dL (70-99) EKG EKG [] Radiology/Procedures Radiology/Procedures [] Course & Med Decision Making Course & Med Decision Making Pertinent Labs and Imaging studies reviewed. (See chart for details) ED course: Patient arrived, was placed in bed, and tolerated exam well. He was offered a box lunch which she accepted and 8. His blood sugar was noted to be 73 prior to eating. He was discharged in improved condition. Medical decision making: Patient with an appropriate blood sugar, no evidence of a stroke syndrome, his NIH was 0. Believe this to be more related to his long -standing mental health issues and the voices telling him not to eat.[] Dragon Disclaimer Dragon Disclaimer This electronic medical record was generated, in whole or in part, using a voice recognition dictation system. Departure Departure: Impression: Primary Impression: Anorexia Additional Impression: Weakness generalized Disposition: 01 HOME, SELF-CARE Condition: IMPROVED Referrals: CRISS POWER MD (PCP) Follow-up in 2 days. Patient Instructions: Diet - High Protein, High Calorie, Weakness Additional Instructions: Eat a meal every 3-4 hours for the next week. Include high quality protein like chicken, turkey, or fish along with beans and rice. Fresh fruits and vegetables can help round out the meal. Follow up with your regular doctor in 2 days. Return to the ER if any concerns. Problem Qualifiers VÍCTOR FLORES DO Oct 17, 2018 09:12
== END 2018-10-17 10:00 | disposition home or self-care (01) ==
LOC: ER 08:32
DX: R53.1 Weakness (principal); R63.0 Anorexia; F20.9 Schizophrenia, unspecified; F32.9 Major depressive disorder, single episode, unspecified; K21.9 Gastro-esophageal reflux disease without esophagitis; I78.0 Hereditary hemorrhagic telangiectasia; Z68.1 Body mass index [BMI] 19.9 or less, adult; Z86.2 Personal history of diseases of the blood and blood-forming organs and certain disorders involving the immune mechanism; Z86.718 Personal history of other venous thrombosis and embolism; Z91.041 Radiographic dye allergy status; Z88.6 Allergy status to analgesic agent
CPT/HCPCS: 82947; 99283

== ENCOUNTER 2018-10-24 18:12 | Emergency (ER) | payer OTHER ==
[~2018-10-24] VITALS: Ht 180.3 cm; Wt 63.5 kg
--- NOTE | 2018-10-24 18:16 | ED.ADGEN ---
Past History Past Medical History: Anemia, Bronchitis, Depression, DVT, GERD, GI Bleed, Schizophrenia, Other Additional Past Medical Histor: Zsyer-Dwhdc-Bkuot Dz, Past Surgical History: Tonsillectomy Additional Past Surgical Histo: duodenal surg Smoking: Non-smoker Alcohol Use: None Drug Use: None Adult General Chief Complaint Chief Complaint ".. I got a nose bleed..." " The voices told me to come.." HPI HPI Patient is a 53 year old male who presents with above hx and complaints of periodic epistaxis. 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 Hx. of Anemia, Bronchitis, Depression, DVT, duodenal ulcer surgery, and chronic non- compliance. Pt. reportedly has gotten his monthly IM injection of at the [facility]. Pt. has hx of chronic schizophrenia with hallucinations of voices telling him not to follow-up with his primary care. Frequent visits to the emergency department. Patient currently is assigned to Dr. Walls. Patient last seen in ER on 10/17 for anorexia and weakness.-Voices had been telling him not to eat. Review of Systems Review of Systems Constitutional: Denies fever or chills [] Eyes: Denies change in visual acuity, redness, or eye pain [] HENT: Denies nasal congestion or sore throat []complains of epistaxis Respiratory: Denies cough or shortness of breath [] Cardiovascular: No additional information not addressed in HPI [] GI: Denies abdominal pain, nausea, vomiting, bloody stools or diarrhea [] : Denies dysuria or hematuria [] Musculoskeletal: Denies back pain or joint pain [] Integument: Denies rash or skin lesions [] Neurologic: Denies headache, focal weakness or sensory changes [] Endocrine: Denies polyuria or polydipsia [] All other systems were reviewed and found to be within normal limits, except as documented in this note. Family History Family History Noncontributory Current Medications Current Medications Current Medications Medications (Trade) Dose Ordered Sig/Tomasz Start Time Stop Time Status Last Admin Dose Admin Lactated Ringer's 1,000 ml @ 1,000 mls/hr Q1H 10/24/18 18:31 10/24/18 19:30 DC 10/24/18 19:13 1,000 MLS/HR Mupirocin (Bactroban) 4 jerry 1X ONCE 10/24/18 19:00 10/24/18 19:01 DC 10/24/18 19:13 4 JERRY Oxymetazoline HCl (Afrin) 2 spray 1X ONCE 10/24/18 19:00 10/24/18 19:01 DC 10/24/18 19:13 2 SPRAY Allergies Allergies Allergies Coded Allergies Type Severity Reaction Last Updated Verified aspirin Allergy Intermediate bleeding 07/17/18 Yes I S O L A T I O N *CONTACT* Allergy Unknown 04/10/18 Yes Physical Exam Physical Exam Constitutional: Mildly acute distress, non-toxic appearance. [] HENT: Normocephalic, atraumatic, bilateral external ears normal, oropharynx moist, no oral exudates, nose dried blood right nasal canal. No septal hematoma. Does have AV lesions of lips Eyes: PERRLA, EOMI, conjunctiva normal, no discharge. [] Neck: Normal range of motion, no tenderness, supple, no stridor. [] Cardiovascular:Heart rate regular rhythm, no murmur [] Lungs & Thorax: Bilateral breath sounds clear to auscultation [] Abdomen: Bowel sounds normal, soft, no tenderness, no masses, no pulsatile masses. [] Skin: Warm, dry, no erythema, no rash. [] Back: No tenderness, no CVA tenderness. [] Extremities: No tenderness, no cyanosis, no clubbing, ROM intact, no edema. [] Neurologic: Alert and oriented X 3, normal motor function, normal sensory function, no focal deficits noted. [] Psychologic: Affect anxious, judgement normal, mood normal. [Pt. hearing voices. (Normal for this pt.- even on psych. meds) Current Patient Data Vital Signs Vital Signs Date Time Temp Pulse Resp B/P (MAP) Pulse Ox O2 Delivery O2 Flow Rate FiO2 10/24/18 20:23 70 18 144/76 (98) 99 10/24/18 18:54 97.4 Room Air Lab Results Laboratory Tests Test 10/24/18 19:15 White Blood Count 6.4 x10^3/uL (4.0-11.0) Red Blood Count 4.79 x10^6/uL (4.30-5.70) Hemoglobin 9.3 g/dL (13.0-17.5) L Hematocrit 31.6 % (39.0-53.0) L Mean Corpuscular Volume 66 fL (79-100) L Mean Corpuscular Hemoglobin 19 pg (25-35) L Mean Corpuscular Hemoglobin Concent 29 g/dL (31-37) L Red Cell Distribution Width 19.2 % (11.5-14.5) H Platelet Count 399 x10^3/uL (140-400) Neutrophils (%) (Auto) 68 % (31-73) Lymphocytes (%) (Auto) 22 % (24-48) L Monocytes (%) (Auto) 7 % (0-9) Eosinophils (%) (Auto) 2 % (0-3) Basophils (%) (Auto) 1 % (0-3) Neutrophils # (Auto) 4.4 x10^3uL (1.8-7.7) Lymphocytes # (Auto) 1.4 x10^3/uL (1.0-4.8) Monocytes # (Auto) 0.4 x10^3/uL (0.0-1.1) Eosinophils # (Auto) 0.1 x10^3/uL (0.0-0.7) Basophils # (Auto) 0.0 x10^3/uL (0.0-0.2) Platelet Estimate Adequate (ADEQUATE) Polychromasia Slight Hypochromasia Marked Poikilocytosis Slight Anisocytosis Slight Microcytosis Slight Ovalocytes Occ Prothrombin Time 11.9 SEC (9.4-11.4) H Prothrombin Time INR 1.2 (0.9-1.1) H PTT 27 SEC (23-33) Sodium Level 142 mmol/L (136-145) Potassium Level 4.2 mmol/L (3.5-5.1) Chloride Level 105 mmol/L (98-107) Carbon Dioxide Level 29 mmol/L (21-32) Anion Gap 8 (6-14) Blood Urea Nitrogen 20 mg/dL (8-26) Creatinine 0.9 mg/dL (0.7-1.3) Estimated GFR (Cockcroft-Gault) 89.0 Glucose Level 75 mg/dL (70-99) Calcium Level 8.7 mg/dL (8.5-10.1) Total Bilirubin 0.3 mg/dL (0.2-1.0) Direct Bilirubin 0.1 mg/dL (0.0-0.2) Aspartate Amino Transferase (AST) 32 U/L (15-37) Alanine Aminotransferase (ALT) 29 U/L (16-63) Alkaline Phosphatase 86 U/L (46-116) Troponin I Quantitative < 0.017 ng/mL (0-0.055) PQ-Lkd-A-Type Natriuretic Peptide 24 pg/mL (0-124) Total Protein 6.9 g/dL (6.4-8.2) Albumin 3.8 g/dL (3.4-5.0) EKG EKG My interpretation of EKG shows a sinus rhythm at 70 bpm with no acute morphology.[] Radiology/Procedures Radiology/Procedures [] Course & Med Decision Making Course & Med Decision Making Pertinent Labs and Imaging studies reviewed. (See chart for details) Patient encouraged not to blow his nose. Patient may sniff. Patient to use Afrin nasal spray if he develops rebleeding. Patient use Polysporin are back to trace in ointment to use nose 4 times a day. Patient follow-up primary care. Patient return if any concerns. [] Final Impression Final Impression 1. Hx. Epistaxis 2. Schizophrenia 3. Hallucinations[]- chronic 4. Kfiri-Ppool-Atkdy Dz 5. Anemia 6. Bronchitis 7. Depression 8. Duodenal Surgery 9. Constipation 10.GI Bleeding/ Mucosal Bleeding from OWR dz Dragon Disclaimer Dragon Disclaimer This electronic medical record was generated, in whole or in part, using a voice recognition dictation system. Discharge Summary Visit Information Final Diagnosis Problems Medical Problems: (1) Epistaxis Status: Acute Brief Hospital Course Allergies Allergies Coded Allergies Type Severity Reaction Last Updated Verified aspirin Allergy Intermediate bleeding 07/17/18 Yes I S O L A T I O N *CONTACT* Allergy Unknown 04/10/18 Yes Vital Signs Vital Signs Date Time Temp Pulse Resp B/P (MAP) Pulse Ox O2 Delivery O2 Flow Rate FiO2 10/24/18 20:23 70 18 144/76 (98) 99 10/24/18 18:54 97.4 Room Air Lab Results Laboratory Tests Test 10/24/18 19:15 White Blood Count 6.4 x10^3/uL (4.0-11.0) Red Blood Count 4.79 x10^6/uL (4.30-5.70) Hemoglobin 9.3 g/dL (13.0-17.5) Hematocrit 31.6 % (39.0-53.0) Mean Corpuscular Volume 66 fL (79-100) Mean Corpuscular Hemoglobin 19 pg (25-35) Mean Corpuscular Hemoglobin Concent 29 g/dL (31-37) Red Cell Distribution Width 19.2 % (11.5-14.5) Platelet Count 399 x10^3/uL (140-400) Neutrophils (%) (Auto) 68 % (31-73) Lymphocytes (%) (Auto) 22 % (24-48) Monocytes (%) (Auto) 7 % (0-9) Eosinophils (%) (Auto) 2 % (0-3) Basophils (%) (Auto) 1 % (0-3) Neutrophils # (Auto) 4.4 x10^3uL (1.8-7.7) Lymphocytes # (Auto) 1.4 x10^3/uL (1.0-4.8) Monocytes # (Auto) 0.4 x10^3/uL (0.0-1.1) Eosinophils # (Auto) 0.1 x10^3/uL (0.0-0.7) Basophils # (Auto) 0.0 x10^3/uL (0.0-0.2) Platelet Estimate Adequate (ADEQUATE) Polychromasia Slight Hypochromasia Marked Poikilocytosis Slight Anisocytosis Slight Microcytosis Slight Ovalocytes Occ Prothrombin Time 11.9 SEC (9.4-11.4) Prothromb Time International Ratio 1.2 (0.9-1.1) Activated Partial Thromboplast Time 27 SEC (23-33) Sodium Level 142 mmol/L (136-145) Potassium Level 4.2 mmol/L (3.5-5.1) Chloride Level 105 mmol/L (98-107) Carbon Dioxide Level 29 mmol/L (21-32) Anion Gap 8 (6-14) Blood Urea Nitrogen 20 mg/dL (8-26) Creatinine 0.9 mg/dL (0.7-1.3) Estimated GFR (Cockcroft-Gault) 89.0 Glucose Level 75 mg/dL (70-99) Calcium Level 8.7 mg/dL (8.5-10.1) Total Bilirubin 0.3 mg/dL (0.2-1.0) Direct Bilirubin 0.1 mg/dL (0.0-0.2) Aspartate Amino Transf (AST/SGOT) 32 U/L (15-37) Alanine Aminotransferase (ALT/SGPT) 29 U/L (16-63) Alkaline Phosphatase 86 U/L (46-116) Troponin I Quantitative < 0.017 ng/mL (0-0.055) UG-Vho-K-Type Natriuretic Peptide 24 pg/mL (0-124) Total Protein 6.9 g/dL (6.4-8.2) Albumin 3.8 g/dL (3.4-5.0) Brief Hospital Course Mr. Ortega is a 53 old male who presented with schizophrenia and epistaxis Discharge Information Condition at Discharge: Improved, Stable Disposition/Orders: D/C to Home Dischare Medications Current Medications Lactated Ringer's 1,000 ml @ 1,000 mls/hr Q1H IV Last administered on at 19:13; Admin Dose 1,000 MLS/HR; Start 10/24/18 at 18:31; Stop 10/24/18 at 19:30; Status DC Mupirocin (Bactroban) 4 jerry 1X ONCE TP Last administered on 10/24/18at 19:13; Admin Dose 4 JERRY; Start 10/24/18 at 19:00; Stop 10/24/18 at 19:01; Status DC Oxymetazoline HCl (Afrin) 2 spray 1X ONCE NS Last administered on 10/24/18at 19 :13; Admin Dose 2 SPRAY; Start 10/24/18 at 19:00; Stop 10/24/18 at 19:01; Status DC Active Scripts Active Ra Tablet ( Vit/Iron Fumarate/Fa) 1 Each Tablet 1 Tab PO DAILY Zantac (Ranitidine Hcl) 150 Mg Tablet 150 Mg PO BID Reported Risperdal (Risperidone) 1 Mg Tablet 1 Mg PO QHS PRN Abilify Maintena (Aripiprazole) 400 Mg Suser.vial 400 Mg IM QMONTH Dragon Disclaimer This chart was dictated in whole or in part using Voice Recognition software in a busy, high-work load, and often noisy Emergency Department environment. It may contain unintended and wholly unrecognized errors or omissions. KENDELL STEWART MD Oct 24, 2018 18:16
[2018-10-24] MEDS ORDERED: IV RINGERS SOLUTION,LACTATED 1,000 ML IV SCH (18:31)
[2018-10-24] MEDS ORDERED: MUPIROCIN 2% TOPICAL OINTMENT 22GM TUBE. TP ONE (19:00)
[2018-10-24] MEDS ORDERED: OXYMETAZOLINE 0.05% NASAL SPRAY 15ML BOTTLE. NS ONE (19:00)
[2018-10-24 19:51] LABS: BASO % 1 % (0-3); EOS # 0.1 x10^3/uL (0.0-0.7); EOS % 2 % (0-3); HEMATOCRIT 31.6 % (39.0-53.0); HEMOGLOBIN 9.3 g/dL (13.0-17.5); LYMPH # 1.4 x10^3/uL (1.0-4.8); LYMPH % 22 % (24-48); MEAN CORPUSCULAR HEMOGLOBIN 19 pg (25-35); MEAN CORPUSCULAR HGB CONC 29 g/dL (31-37); MEAN CORPUSCULAR VOLUME 66 fL (79-100); MONO # 0.4 x10^3/uL (0.0-1.1); MONO % 7 % (0-9); NEUT # 4.4 x10^3uL (1.8-7.7); NEUT % 68 % (31-73); PLATELET COUNT 399 x10^3/uL (140-400); RED BLOOD COUNT 4.79 x10^6/uL (4.30-5.70); RED CELL DISTRIBUTION WIDTH 19.2 % (11.5-14.5); WHITE BLOOD COUNT 6.4 x10^3/uL (4.0-11.0)
[2018-10-24 19:53] LABS: ALBUMIN 3.8 g/dL (3.4-5.0); CALCIUM 8.7 mg/dL (8.5-10.1); CREATININE 0.9 mg/dL (0.7-1.3); DIRECT BILIRUBIN 0.1 mg/dL (0.0-0.2); POTASSIUM 4.2 mmol/L (3.5-5.1); TOTAL BILIRUBIN 0.3 mg/dL (0.2-1.0); TOTAL PROTEIN 6.9 g/dL (6.4-8.2)
[2018-10-24 20:23] VITALS: BP 144/76
[2018-10-24 20:47] LABS: ANISOCYTOSIS SLIGHT; HYPOCHROMIA MARKED; MICROCYTOSIS SLIGHT; PLT ESTIMATE ADEQUATE (ADEQUATE); POIKILOCYTOSIS SLIGHT; POLYCHROMASIA SLIGHT
[2018-10-24 20:48] LABS: OVALOCYTES OCC
--- NOTE | 2018-10-24 22:20 | EKG ---
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
== END 2018-10-24 20:20 | disposition home or self-care (01) ==
LOC: ER 18:12
DX: R04.0 Epistaxis (principal); F20.9 Schizophrenia, unspecified; J40 Bronchitis, not specified as acute or chronic; D64.9 Anemia, unspecified; K59.00 Constipation, unspecified; F32.9 Major depressive disorder, single episode, unspecified; I78.0 Hereditary hemorrhagic telangiectasia; K21.9 Gastro-esophageal reflux disease without esophagitis; Z86.2 Personal history of diseases of the blood and blood-forming organs and certain disorders involving the immune mechanism; Z86.718 Personal history of other venous thrombosis and embolism; Z88.6 Allergy status to analgesic agent; Z91.041 Radiographic dye allergy status; Z98.84 Bariatric surgery status
CPT/HCPCS: 36415; 80048; 80076; 83880; 84484; 85025; 85610; 85730; 93005; 99285; J7120

== ENCOUNTER 2018-11-26 13:16 | Emergency (ER) | payer OTHER ==
[~2018-11-26] VITALS: Ht 180.3 cm; Wt 55.0 kg
[2018-11-26 13:30] VITALS: BP 113/57
[2018-11-26] MEDS ORDERED: IV NORMAL SALINE 1,000ML 1,000 ML IV ONE (14:00)
[2018-11-26 14:13] LABS: BILIRUBIN,URINE NEG (NEG); CLARITY,URINE HAZY; COLOR,URINE YELLOW; GLUCOSE,URINE 500 mg/dL (NEG)
[2018-11-26 14:14] LABS: NITRITE,URINE NEG (NEG); UROBILINOGEN,URINE 0.2 mg/dL (0.2 mg/dL)
[2018-11-26 14:17] LABS: MEAN CORPUSCULAR HEMOGLOBIN 18 pg (25-35); MEAN CORPUSCULAR HGB CONC 28 g/dL (31-37); MEAN CORPUSCULAR VOLUME 64 fL (79-100); PLATELET COUNT 432 x10^3/uL (140-400); RED BLOOD COUNT 5.02 x10^6/uL (4.30-5.70); RED CELL DISTRIBUTION WIDTH 19.8 % (11.5-14.5); WHITE BLOOD COUNT 4.8 x10^3/uL (4.0-11.0)
[2018-11-26 14:27] LABS: ALBUMIN 3.6 g/dL (3.4-5.0); ALBUMIN/GLOBULIN RATIO 1.1 (1.0-1.7); CALCIUM 8.7 mg/dL (8.5-10.1); CREATININE 0.9 mg/dL (0.7-1.3); POTASSIUM 3.7 mmol/L (3.5-5.1)
--- NOTE | 2018-11-26 14:33 | RAD ---
ABDOMEN SUPINE UPRIGHT Clinical Indication: Bloated. Comparison: Acute abdominal series, October 14, 2018. Findings: No evidence of pneumoperitoneum. Lung bases are clear. No air-fluid levels are seen on the upright image. There is scattered air in the colon. There is moderate stool. No dilated small bowel is seen. No obvious organomegaly. Bones unremarkable. IMPRESSION: Nonobstructive bowel gas pattern. Moderate colonic stool may indicate constipation. Electronically signed by: Kenn Drake MD (11/26/2018 2:30 PM) [id number]
[2018-11-26 15:00] LABS: % BASOS 1 % (0-3); % EOS 1 % (0-5); % LYMPHS 18 % (24-48); % MONOS 4 % (0-10); % SEGS 76 % (35-66); OVALOCYTES MOD; PLT ESTIMATE INCREASED (ADEQUATE)
[2018-11-26 15:01] LABS: ANISOCYTOSIS SLIGHT; HYPOCHROMIA MOD; MICROCYTOSIS MOD; POIKILOCYTOSIS MOD; POLYCHROMASIA SLIGHT; TEAR DROP CELLS OCC
[2018-11-26] MEDS ORDERED: POLY17PO5 PO (15:42)
--- NOTE | 2018-11-26 15:42 | PHYS DOC ---
Past History Past Medical History: Anemia, Bronchitis, Depression, DVT, GERD, GI Bleed, Schizophrenia, Other Additional Past Medical Histor: Ndbfz-Eoebt-Wsjcd Dz, Past Surgical History: Tonsillectomy Additional Past Surgical Histo: duodenal surg Smoking: Non-smoker Alcohol Use: None Drug Use: None Adult General Chief Complaint Chief Complaint: ABDOMINAL PAIN HPI HPI Patient is a 53 year old male who presents with complaint of abdominal discomfort. States that he started feeling "bloated" when he woke up this morning. Denies any localizing pain but states it feels like he is bloated all over. States he also feels fatigued but states that this has been going on for several months. Denies any associated fever, vomiting. Patient states he had a bowel movement shortly prior to arrival. Has noted history of anemia, schizoaffective disorder. Follows with Dr. Walls for primary care. Has mult iple visits to the emergency department for different complaints. Review of Systems Review of Systems Constitutional: Fatigue, denies fever or chills [] Eyes: Denies change in visual acuity, redness, or eye pain [] HENT: Denies nasal congestion or sore throat [] Respiratory: Denies cough or shortness of breath [] Cardiovascular: Denies chest pain or edema[] GI: Abdominal "bloating," denies nausea, vomiting, bloody stools or diarrhea [] : Denies dysuria or hematuria [] Musculoskeletal: Denies back pain or joint pain [] Integument: Denies rash or skin lesions [] Neurologic: Denies headache, focal weakness or sensory changes [] All other systems were reviewed and found to be within normal limits, except as documented in this note. Current Medications Current Medications Current Medications Medications (Trade) Dose Ordered Sig/Tomasz Start Time Stop Time Status Last Admin Dose Admin Sodium Chloride 1,000 ml @ 1,000 mls/hr 1X ONCE 11/26/18 14:00 11/26/18 14:59 DC 11/26/18 14:00 1,000 MLS/HR Allergies Allergies Allergies Coded Allergies Type Severity Reaction Last Updated Verified aspirin Allergy Intermediate bleeding 11/26/18 Yes I S O L A T I O N *CONTACT* Allergy Unknown 04/10/18 Yes Physical Exam Physical Exam Constitutional: Well developed, well nourished, no acute distress, non-toxic appearance. [] HENT: Normocephalic, atraumatic, bilateral external ears normal, oropharynx moist, no oral exudates, nose normal. [] Eyes: PERRLA, EOMI, conjunctiva normal, no discharge. [] Neck: Normal range of motion, no tenderness, supple, no stridor. [] Cardiovascular:Heart rate regular rhythm, no murmur [] Lungs & Thorax: Bilateral breath sounds clear to auscultation [] Abdomen: Bowel sounds normal, soft, no tenderness, no masses, no pulsatile masses. [] Skin: Warm, dry, no erythema, no rash. [] Back: No tenderness, no CVA tenderness. [] Extremities: No tenderness, no cyanosis, no clubbing, ROM intact, no edema. [] Neurologic: Alert and oriented X 3, normal motor function, normal sensory function, no focal deficits noted. [] Current Patient Data Vital Signs Vital Signs Date Time Temp Pulse Resp B/P (MAP) Pulse Ox O2 Delivery O2 Flow Rate FiO2 11/26/18 13:30 98.2 83 16 99 Room Air Lab Results Laboratory Tests Test 11/26/18 13:58 White Blood Count 4.8 x10^3/uL (4.0-11.0) Red Blood Count 5.02 x10^6/uL (4.30-5.70) Hemoglobin 9.0 g/dL (13.0-17.5) L Hematocrit 32.0 % (39.0-53.0) L Mean Corpuscular Volume 64 fL (79-100) L Mean Corpuscular Hemoglobin 18 pg (25-35) L Mean Corpuscular Hemoglobin Concent 28 g/dL (31-37) L Red Cell Distribution Width 19.8 % (11.5-14.5) H Platelet Count 432 x10^3/uL (140-400) H Segmented Neutrophils % 76 % (35-66) H Lymphocytes % 18 % (24-48) L Monocytes % 4 % (0-10) Eosinophils % 1 % (0-5) Basophils % 1 % (0-3) Platelet Estimate Increased (ADEQUATE) Large Platelets Occ Giant Platelets Occ Polychromasia Slight Hypochromasia Mod Poikilocytosis Mod Anisocytosis Slight Microcytosis Mod Tear Drop Cells Occ Ovalocytes Mod Urine Collection Type Unknown Urine Color Yellow Urine Clarity Hazy Urine pH 5.0 Urine Specific [place] 1.025 Urine Protein Neg (NEG-TRACE) Urine Glucose (UA) 500 mg/dL (NEG) Urine Ketones (Stick) Neg mg/dL (NEG) Urine Blood Neg (NEG) Urine Nitrite Neg (NEG) Urine Bilirubin Neg (NEG) Urine Urobilinogen Dipstick 0.2 mg/dL (0.2 mg/dL) Urine Leukocyte Esterase Neg (NEG) Sodium Level 141 mmol/L (136-145) Potassium Level 3.7 mmol/L (3.5-5.1) Chloride Level 105 mmol/L (98-107) Carbon Dioxide Level 28 mmol/L (21-32) Anion Gap 8 (6-14) Blood Urea Nitrogen 15 mg/dL (8-26) Creatinine 0.9 mg/dL (0.7-1.3) Estimated GFR (Cockcroft-Gault) 89.0 BUN/Creatinine Ratio 17 (6-20) Glucose Level 66 mg/dL (70-99) L Calcium Level 8.7 mg/dL (8.5-10.1) Total Bilirubin 1.0 mg/dL (0.2-1.0) Aspartate Amino Transferase (AST) 29 U/L (15-37) Alanine Aminotransferase (ALT) 30 U/L (16-63) Alkaline Phosphatase 87 U/L (46-116) Total Protein 7.0 g/dL (6.4-8.2) Albumin 3.6 g/dL (3.4-5.0) Albumin/Globulin Ratio 1.1 (1.0-1.7) EKG EKG Not performed[] Radiology/Procedures Radiology/Procedures [address] [address] IMAGING REPORT Signed PATIENT: BOLIVAR JEFF ACCOUNT: [id number] : 1965 LOCATION: ER AGE: 53 SEX: M EXAM STATUS: REG ER ORD. PHYSICIAN: EDILMA WARNER MD REASON: patient states he feels "bloated" PROCEDURE: ABDOMEN SUPINE & UPRIGHT ABDOMEN SUPINE UPRIGHT Clinical Indication: Bloated. Comparison: Acute abdominal series, October 14, 2018. Findings: No evidence of pneumoperitoneum. Lung bases are clear. No air-fluid levels are seen on the upright image. There is scattered air in the colon. There is moderate stool. No dilated small bowel is seen. No obvious organomegaly. Bones unremarkable. IMPRESSION: Nonobstructive bowel gas pattern. Moderate colonic stool may indicate constipation. Electronically signed by: Kenn Drake MD (11/26/2018 2:30 PM) [id number] DICTATED AND SIGNED BY: KENN DRAKE MD DATE: 11/26/18 1430 CC: EDILMA WARNER MD; CRISS WALSL MD ~ [] Course & Med Decision Making Course & Med Decision Making Pertinent Labs and Imaging studies reviewed. (See chart for details) Blood work does show anemia slightly worsened from previous blood draws. MCV is quite low which would suggest iron deficiency anemia. X-rays don't show obvious obstruction but do show moderate colonic stool raising suspicion for constipation as cause for patient's symptoms. Recommended use of MiraLAX to help improve bowel movements. Also recommended use of iron fortified multivitamin to help with iron replacement and recommended close follow-up with patient's primary doctor within the next 4 days for reevaluation. Advised return to emergency department for any worsening symptoms. Patient was understanding and in agreement with treatment plan.[] Dragon Disclaimer Dragon Disclaimer This electronic medical record was generated, in whole or in part, using a voice recognition dictation system. Departure Departure: Impression: Primary Impression: Constipation Additional Impression: Anemia Disposition: 01 HOME, SELF-CARE Condition: STABLE Referrals: CRISS WALLS MD (PCP) Patient Instructions: Constipation, Adult, Iron Deficiency Anemia Additional Instructions: You may use MiraLAX available [id number] for treatment of constipation. You'll need to follow-up with your primary doctor in the next 3-4 days for reevaluation. Your found to have anemia which is believed to be due to lack of iron in your diet. You may take a daily multivitamin with iron to help treat this, however you'll need to follow-up with your primary doctor for further evaluation. Return to the emergency department for any worsening symptoms. Scripts Polyethylene Glycol 3350 (MIRALAX) 17 Gm Powd.pack 1 PACKET PO DAILY, #30 PACKET 0 Refills Prov: EDILMA WARNER MD 11/26/18 Problem Qualifiers Primary Impression: Constipation Constipation type: unspecified constipation type Qualified Codes: K59.00 - Constipation, unspecified Additional Impression: Anemia Anemia type: iron deficiency Iron deficiency anemia type: unspecified iron deficiency Qualified Codes: D50.9 - Iron deficiency anemia, unspecified EDILMA WARNER MD November 26, 2018 15:42
== END 2018-11-26 15:49 | disposition home or self-care (01) ==
LOC: ER 13:16
DX: K59.00 Constipation, unspecified (principal); D50.9 Iron deficiency anemia, unspecified; F32.9 Major depressive disorder, single episode, unspecified; K21.9 Gastro-esophageal reflux disease without esophagitis; F20.9 Schizophrenia, unspecified; I78.0 Hereditary hemorrhagic telangiectasia; Z86.718 Personal history of other venous thrombosis and embolism; Z88.6 Allergy status to analgesic agent; Z91.041 Radiographic dye allergy status
CPT/HCPCS: 36415; 74021; 80053; 81003; 85007; 85025; 99285-25; J7030

== ENCOUNTER 2018-12-18 06:39 | Observation (INO) | payer OTHER ==
[~2018-12-18] VITALS: Ht 180.3 cm; Wt 61.2 kg
[~2018-12-18 06:39] MED LIST changes: +RANI-376 PO; -RANI150T21 PO
--- NOTE | 2018-12-18 06:55 | PHYS DOC ---
Past History Past Medical History: Anemia, Bronchitis, Depression, DVT, GERD, GI Bleed, Schizophrenia, Other Additional Past Medical Histor: Xgjsh-Zoend-Rbfau Dz, Past Surgical History: Tonsillectomy Additional Past Surgical Histo: duodenal surg Smoking: Non-smoker Alcohol Use: None Drug Use: None Adult General Chief Complaint Chief Complaint: HYPOGLYCEMIA HPI HPI Patient is a 53-year-old gentleman presents with voices telling him not to eat for the past 3 days. He has a prior history of this. EMS found that his blood sugar was in the 50s. Since he was awake and alert the elected not to give any glucose containing solutions. Nothing makes the symptoms better or worse. Patient denies that he has any suicidal or homicidal ideation. The voices are telling him not to eat because his "belly is too big." Denies any chest pain or palpitations. Denies any recent changes in his medicine.[] Review of Systems Review of Systems Constitutional: Denies fever or chills [] Eyes: Denies change in visual acuity, redness, or eye pain [] HENT: Denies nasal congestion or sore throat [] Respiratory: Denies cough or shortness of breath [] Cardiovascular: No chest pain or palpitations[] GI: Denies abdominal pain, nausea, vomiting, bloody stools or diarrhea [] : Denies dysuria or hematuria [] Musculoskeletal: Denies back pain or joint pain [] Integument: Denies rash or skin lesions [] Neurologic: Denies headache, focal weakness or sensory changes [] Endocrine: Denies polyuria or polydipsia [] All other systems were reviewed and found to be within normal limits, except as documented in this note. Current Medications Current Medications Current Medications Medications (Trade) Dose Ordered Sig/[facility] Start Time Stop Time Status Last Admin Dose Admin Multivitamins/ Minerals 10 ml/ Folic Acid 1 mg/ Thiamine HCl 100 mg/Sodium Chloride 1,011.2 ml @ 1,000 mls/ hr Q1H 12/18/18 07:00 Allergies Allergies Allergies Coded Allergies Type Severity Reaction Last Updated Verified aspirin Allergy Intermediate bleeding 11/26/18 Yes I S O L A T I O N *CONTACT* Allergy Unknown 04/10/18 Yes Physical Exam Physical Exam Constitutional: Well developed, cachectic, no acute distress, non-toxic appearance. [] HENT: Normocephalic, atraumatic, bilateral external ears normal, oropharynx moist, no oral exudates, nose normal. [] Eyes: PERRLA, EOMI, conjunctiva normal, no discharge. [] Neck: Normal range of motion, no tenderness, supple, no stridor. [] Cardiovascular:Heart rate regular rhythm, no murmur [] Lungs & Thorax: Bilateral breath sounds clear to auscultation [] Abdomen: Bowel sounds normal, soft, no tenderness, no masses, no pulsatile masses. [] Skin: Warm, dry, no erythema, no rash. [] Back: No tenderness, no CVA tenderness. [] Extremities: No tenderness, no cyanosis, no clubbing, ROM intact, no edema. [] Neurologic: Alert and oriented X 3, normal motor function, normal sensory function, no focal deficits noted. [] Psychologic: Affect flat, judgement impaired, mood depressed. No suicidal or homicidal ideation [] EKG EKG EKG shows a normal sinus rhythm at 71 bpm, normal axis, normal QTC, no ST el evation. No acute changes when compared with 10/24/2018. Interpreted by me at 0715[] Radiology/Procedures Radiology/Procedures [] Course & Med Decision Making Course & Med Decision Making Pertinent Labs and Imaging studies reviewed. (See chart for details) ED course: Patient arrived, was placed in bed, and tolerated exam well. It was noted that his fingerstick for us in the emergency department was 44. He was given food. He was given a "banana bag" due to concern for his starvation state. He was given an additional breakfast be on the box lunch. After the return of the laboratory testing, consultation was made with the hospitalist service for admission. He was admitted in improved condition. Medical decision making: Patient with schizophrenia who appears to be dehydrated and malnourished. He is being admitted for further evaluation and treatment.[] Dragon Disclaimer Dragon Disclaimer This electronic medical record was generated, in whole or in part, using a voice recognition dictation system. Departure Departure: Impression: Primary Impression: Dehydration Additional Impressions: Malnutrition Schizophrenia Disposition: ADMITTED INPATIENT Admitting Physician: Manolo Mcdaniels Condition: IMPROVED Referrals: CRISS POWER MD (PCP) Problem Qualifiers Additional Impressions: Malnutrition Malnutrition type: protein-calorie malnutrition Protein-calorie malnutrition severity: mild Qualified Codes: E44.1 - Mild protein-calorie malnutrition Schizophrenia Schizophrenia type: unspecified Qualified Codes: F20.9 - Schizophrenia, unspecified VÍCTOR FLORES DO Dec 18, 2018 06:55
[2018-12-18] MEDS ORDERED: MVI, ADULT NO.4 WITH VIT K 10 ML, FOLIC ACID SYRINGE for ER 1 MG, THIAMINE INJ 100 MG i... IV SCH ×4 (07:00)
[2018-12-18 07:29] LABS: BASO % 1 % (0-3); EOS # 0.1 x10^3/uL (0.0-0.7); EOS % 2 % (0-3); HEMATOCRIT 37.3 % (39.0-53.0); HEMOGLOBIN 10.5 g/dL (13.0-17.5); LYMPH # 1.3 x10^3/uL (1.0-4.8); LYMPH % 20 % (24-48); MEAN CORPUSCULAR HEMOGLOBIN 18 pg (25-35); MEAN CORPUSCULAR HGB CONC 28 g/dL (31-37); MEAN CORPUSCULAR VOLUME 64 fL (79-100); MONO # 0.4 x10^3/uL (0.0-1.1); MONO % 5 % (0-9); NEUT # 4.8 x10^3uL (1.8-7.7); NEUT % 72 % (31-73); PLATELET COUNT 408 x10^3/uL (140-400); RED BLOOD COUNT 5.85 x10^6/uL (4.30-5.70); RED CELL DISTRIBUTION WIDTH 20.2 % (11.5-14.5); WHITE BLOOD COUNT 6.7 x10^3/uL (4.0-11.0)
[2018-12-18] MEDS ORDERED: MVI, ADULT NO.4 WITH VIT K 10 ML, FOLIC ACID SYRINGE for ER 1 MG, THIAMINE INJ 100 MG i... IV ONE ×4 (07:30)
[2018-12-18 07:36] LABS: ALBUMIN 4.5 g/dL (3.4-5.0); CALCIUM 9.1 mg/dL (8.5-10.1); CREATININE 1.2 mg/dL (0.7-1.3); DIRECT BILIRUBIN 0.4 mg/dL (0.0-0.2); GFR 63.8; PHOSPHORUS 3.6 mg/dL (2.6-4.7); POTASSIUM 4.1 mmol/L (3.5-5.1); TOTAL BILIRUBIN 1.1 mg/dL (0.2-1.0); TOTAL PROTEIN 8.3 g/dL (6.4-8.2)
[2018-12-18 07:37] LABS: ETHANOL < 10 mg/dL (0-10); SALIC 2.6 mg/dL (2.8-20.0)
[2018-12-18 07:38] LABS: ACETAMIN < 2.0 mcg/mL (10-30)
[2018-12-18 07:41] LABS: BARBITURATES NEG (NEG); BENZODIAZEPINES NEG (NEG); CANNABINOIDS NEG (NEG); COCAINE NEG (NEG); METHADONE NEG (NEG); OPIATES NEG (NEG); PHENCYCLIDINE NEG (NEG)
[2018-12-18 07:42] LABS: AMPHETAMINE/METHAMPHETAMINE NEG (NEG)
[2018-12-18 07:47] LABS: BILIRUBIN,URINE SMALL (NEG); CLARITY,URINE CLEAR; COLOR,URINE YELLOW; GLUCOSE,URINE 100 mg/dL (NEG)
[2018-12-18 07:48] LABS: BACTERIA,URINE FEW /HPF (0-FEW); GRANULAR CASTS,URINE FEW /HPF; HYALINE CASTS, URINE FEW /HPF; NITRITE,URINE NEG (NEG); RBC,URINE 0 /HPF (0-2); SQUAMOUS EPITHELIAL CELL,UR OCC /LPF; UROBILINOGEN,URINE 1 mg/dL (0.2 mg/dL); WBC,URINE RARE /HPF (0-4)
--- NOTE | 2018-12-18 08:05 | EKG ---
[address] [address] Test Date: 2018-12-18 Test Time: 07:14:54 Pat Name: BOLIVAR JEFF Department: Room: Gender: M Finding Fastener: : 1965 Requested By: VÍCTOR FLORES Order Number: [id number] Reading MD: Measurements Intervals [place] Rate: 71 P: 21 MT: 138 QRS: 11 QRSD: 80 T: 51 QT: 376 QTc: 413 Interpretive Statements SINUS RHYTHM NORMAL ECG RI6.01 No previous ECG available for comparison
[2018-12-18] MEDS: IV NORMAL SALINE 1,000ML 1,000 ML IV SCH ×4 (08:26→21:16)
[2018-12-18] MEDS ORDERED: ACETAMINOPHEN 325 MG TABLET PO PRN (08:30)
[2018-12-18] MEDS ORDERED: ONDANSETRON PF 4 MG/2 ML VIAL. IV PRN ×2 (08:30→11:15)
[2018-12-18 08:55] LABS: % BANDS 3 % (0-9); % BASOS 1 % (0-3); % EOS 2 % (0-5); % LYMPHS 14 % (24-48); % MONOS 4 % (0-10); % SEGS 76 % (35-66); ANISOCYTOSIS MOD; HYPOCHROMIA MOD; MICROCYTOSIS MOD; PLT ESTIMATE INCREASED (ADEQUATE); POIKILOCYTOSIS MOD; POLYCHROMASIA SLIGHT
[2018-12-18 08:56] LABS: OVALOCYTES MOD; SCHISTOCYTES OCC; TEAR DROP CELLS OCC; TOXIC VACUOLATION PRESENT
[2018-12-18 10:14] VITALS: BP 129/77
[2018-12-18 10:47] VITALS: BP 115/70
[2018-12-18] MEDS ORDERED: oxyCODONE/APAP 5/325 1 TAB TABLET PO PRN (11:15)
--- NOTE | 2018-12-18 13:58 | HP ---
ADMIT DATE: CHIEF COMPLAINT: Weakness. HISTORY OF PRESENT ILLNESS: The patient is a 53-year-old gentleman who is quite weak. He presented to the ED with blood sugars in the 50s. He is very tired. He has no energy. He has not eaten anything in the last 3 days. He gets his Depo - Abilify injections every month, but he is hearing voices, told him not to eat for the past 3 days. He is not suicidal. The voices in his head are telling him not to eat because his belly is getting too big. He actually is very cachectic and a thin man. Therefore, it is a self-perception. He is fairly alert with a flat affect. He is admitted with dehydration and not eating for the last 3 days. PAST MEDICAL HISTORY: Significant for documented Lzqxt-Vnztr-Mnhxc disease, mom has the condition too. He also has anemia, chronic bronchitis, depression, schizophrenia, gastroesophageal reflux disease, and remote history of DVT. PAST SURGICAL HISTORY: Tonsillectomy and duodenal surgery. SOCIAL HISTORY: He is a nonsmoker and nondrinker. CURRENT MEDICINES: According to the records, he was getting 400 mg dose of Depo - Abilify injections once monthly. REVIEW OF SYSTEMS: Significant for the fact that he lives alone. He has very poor social support. He is at independent living. He gets his weekly shots. He has a family preservation caseworker that helps out. He denied any recent fevers or chills. He started to hear voices, telling him not to eat. He denied any suicidal ideations. No obvious signs of psychosis. All other systems reviewed and determined to be negative. PHYSICAL EXAMINATION: GENERAL: When I saw him, this is a pleasant gentleman with a flat affect. INITIAL VITAL SIGNS: In the ED showed a blood pressure of 111/58, pulse of 71 and regular. He was afebrile. HEENT: Head is without trauma. The pupils are reactive. Sclerae are nonicteric. The oropharynx is clear with dry mucous membranes. NECK: Supple. No adenopathy or thyromegaly. LUNGS: Otherwise, clear to auscultation. CARDIOVASCULAR: Regular heart tones. No obvious gallops. Peripheral pulses are palpable and full. ABDOMEN: Soft, scaphoid, nontender. No organomegaly. Bowel sounds were hypoactive. EXTREMITIES: Showed no cyanosis or edema. NEUROLOGIC: Flat affect, monotone voice, fairly alert. No focal deficits. Catering Operations Manager were intact and symmetrical. LABORATORY DATA: Pertinent laboratory studies, his hemoglobin is 10.5 g/dL with a white count of 6700. Initial blood sugar in the ED was 44, repeated was up to 73. Creatinine is 1.2 mg/dL, BUN 19, potassium 4.1 mEq. ASSESSMENT: 1. A 53-year-old gentleman with dehydration. 2. Mild cachexia. 3. Underlying schizoaffective disorder, he is hearing voices telling him not to eat. 4. Gastroesophageal reflux disease. 5. Remote history of deep venous thrombosis. 6. Essential hypertension. PLAN: 1. Admit to the inpatient unit. 2. Gentle IV hydration. 3. Diet as tolerated. I encourage oral intake. 4. We will add oral Abilify in addition to his scheduled Abilify injection. 5. Serial chemistries. JAMIE MARI MD DR: MARLENE/jyoti JOB#: [id number] / [id number] LEONA Washington MD
[2018-12-18 15:29] VITALS: BP 112/69
[2018-12-18 19:06] VITALS: BP 112/63
[2018-12-19 05:54] VITALS: BP 110/70
[2018-12-19] MEDS ORDERED: ARIPiprazole 15 MG TABLET PO SCH (09:00)
[2018-12-19 10:15] VITALS: BP 100/65
--- NOTE | 2018-12-19 11:44 | DS ---
DATE OF DISCHARGE: 12/19/2018 FINAL DISCHARGE DIAGNOSES: 1. Dehydration, rehydrated. 2. Mild cachexia. 3. Underlying schizoaffective disorder. 4. He is hearing voices due to schizoaffective disorder. 5. Gastroesophageal reflux disease. 6. Remote history of deep venous thrombosis. 7. Borderline labile hypertension. HISTORY: This is a pleasant nonviolent 53-year-old gentleman with known schizoaffective disorder, has not eaten in several days. He is hearing voices, telling him not to eat. He has had multiple previous admissions with similar symptoms. PHYSICAL EXAMINATION: Please see the dictated note. PERTINENT LABORATORY AND X-RAY STUDIES: His chemistry panel showed stable creatinine of 1.2 mg/dL, nonfasting blood sugar of 103. Sodium and potassium within normal range. Hemoglobin maintained at 10.5 gm/dL with a white count of 6700. COURSE IN THE HOSPITAL: The patient was admitted to the medical floor. He was given IV hydration with marked improvement. Diet was advanced and he stopped hearing voices. I wrote for some extra doses of Abilify, which helped his mood. By the next day, his vital signs are stable. He wanted to go home. I felt this is reasonable. Strong encouragement to follow up with his PCP, as well as his monthly injection of Abilify. No new meds were necessary. The patient was then discharged from our hospital in stable condition with explicit instructions and followup care. JAMIE MARI MD DR: MARLENE/jyoti JOB#: [id number] / [id number] LEONA Washington MD
== END 2018-12-19 11:00 | disposition home or self-care (01) ==
LOC: ER 06:39 → INTOOBSV 08:26 → 1 SOUTH 08:26
PROVIDERS: ADMIT Hospitalist; ATTEND Hospitalist
DX: E86.0 Dehydration (principal); R64 Cachexia; Z68.1 Body mass index [BMI] 19.9 or less, adult; E44.1 Mild protein-calorie malnutrition; E16.2 Hypoglycemia, unspecified; F32.9 Major depressive disorder, single episode, unspecified; F25.9 Schizoaffective disorder, unspecified; I10 Essential (primary) hypertension; J42 Unspecified chronic bronchitis; K21.9 Gastro-esophageal reflux disease without esophagitis; Z86.718 Personal history of other venous thrombosis and embolism; Z90.49 Acquired absence of other specified parts of digestive tract; Z88.8 Allergy status to other drugs, medicaments and biological substances; Z79.899 Other long term (current) drug therapy; I78.0 Hereditary hemorrhagic telangiectasia; E46 Unspecified protein-calorie malnutrition; Z98.890 Other specified postprocedural states
CPT/HCPCS: 36415; 80048; 80076; 80307; 80329; 81001; 82947; 83735; 84100; 85007; 85025; 85610; 87641; 93005; 96361; 96365; 99284; G0378; G0480; G0379; 82003; J7030

== ENCOUNTER → 2018-12-28 | Outpatient (CLI) | payer OTHER ==
[2018-12-19 10:15] VITALS: BP 100/65
[2018-12-28 13:27] LABS: BASO % 1 % (0-3); EOS # 0.1 x10^3/uL (0.0-0.7); EOS % 2 % (0-3); HEMATOCRIT 32.1 % (39.0-53.0); HEMOGLOBIN 9.2 g/dL (13.0-17.5); LYMPH # 1.9 x10^3/uL (1.0-4.8); LYMPH % 36 % (24-48); MEAN CORPUSCULAR HEMOGLOBIN 18 pg (25-35); MEAN CORPUSCULAR HGB CONC 29 g/dL (31-37); MEAN CORPUSCULAR VOLUME 62 fL (79-100); MONO # 0.3 x10^3/uL (0.0-1.1); MONO % 6 % (0-9); NEUT # 2.8 x10^3uL (1.8-7.7); NEUT % 55 % (31-73); PLATELET COUNT 446 x10^3/uL (140-400); RED BLOOD COUNT 5.18 x10^6/uL (4.30-5.70); RED CELL DISTRIBUTION WIDTH 20.8 % (11.5-14.5); WHITE BLOOD COUNT 5.2 x10^3/uL (4.0-11.0)
[2018-12-28 13:33] LABS: ALBUMIN 3.8 g/dL (3.4-5.0); ALBUMIN/GLOBULIN RATIO 1.2 (1.0-1.7); CALCIUM 8.7 mg/dL (8.5-10.1); CREATININE 0.8 mg/dL (0.7-1.3); GFR 101.9; POTASSIUM 4.1 mmol/L (3.5-5.1); TOTAL BILIRUBIN 0.4 mg/dL (0.2-1.0); TOTAL PROTEIN 7.1 g/dL (6.4-8.2)
[2018-12-28 14:36] LABS: % ATYL 1 % (0-0); % BANDS 1 % (0-9); % EOS 1 % (0-5); % LYMPHS 15 % (24-48); % METAS 1 % (0-0); % MONOS 5 % (0-10); % SEGS 76 % (35-66); PLT ESTIMATE INCREASED (ADEQUATE)
[2018-12-28 14:37] LABS: ANISOCYTOSIS MOD; HYPOCHROMIA MOD; MICROCYTOSIS MOD; OVALOCYTES FEW; POLYCHROMASIA SLIGHT; TARGET CELLS FEW; TEAR DROP CELLS FEW
[2018-12-28 14:38] LABS: SCHISTOCYTES FEW
== END | disposition home or self-care (01) ==
LOC: LAB 11:37
PROVIDERS: ATTEND Clinical Nurse Specialist Psychiatric/Mental Health, Adult
DX: Z79.899 Other long term (current) drug therapy (principal)
CPT/HCPCS: 36415; 80053; 80061; 84146; 85007; 85025

== ENCOUNTER 2019-01-18 03:15 | Emergency (ER) | payer OTHER ==
[~2019-01-18] VITALS: Ht 180.3 cm; Wt 62.1 kg
--- NOTE | 2019-01-18 03:35 | PHYS DOC ---
Past History Past Medical History: Schizophrenia, Other Additional Past Medical Histor: Mrrxs-Ceftm-Irpad Dz, Past Surgical History: Tonsillectomy, Other Additional Past Surgical Histo: duodenal surg Smoking: Non-smoker Alcohol Use: None Drug Use: None Adult General Chief Complaint Chief Complaint: ABDOMINAL PAIN HPI HPI Patient is a 53-year-old male presents with diffuse abdominal pain, nausea and vomiting. He reports that he was throwing up blood. He has a history of Rkxvl-Yxjpr-Jqxps syndrome and has had to have previous esophageal cautery by EGD, due to similar symptoms. Last time was in 2010. Denies any blood in the stool. No black tarry-looking blood. No coffee ground emesis. No recent changes in weight. He denies any abdominal surgery. Denies any easy bruising. Nothing makes the symptoms better or worse.[] Review of Systems Review of Systems Constitutional: Denies fever or chills [] Eyes: Denies change in visual acuity, redness, or eye pain [] HENT: Denies nasal congestion or sore throat [] Respiratory: Denies cough or shortness of breath [] Cardiovascular: No chest pain or palpitations[] GI: See history of present illness[] : Denies dysuria or hematuria [] Musculoskeletal: Denies back pain or joint pain [] Integument: Denies rash or skin lesions [] Neurologic: Denies headache, focal weakness or sensory changes [] Endocrine: Denies polyuria or polydipsia [] All other systems were reviewed and found to be within normal limits, except as documented in this note. Allergies Allergies Allergies Coded Allergies Type Severity Reaction Last Updated Verified aspirin Allergy Intermediate bleeding 11/26/18 Yes I S O L A T I O N *CONTACT* Allergy Unknown 04/10/18 Yes Physical Exam Physical Exam Constitutional: Well developed, well nourished, no acute distress, non-toxic appearance. [] HENT: Normocephalic, atraumatic, bilateral external ears normal, oropharynx moist, no oral exudates, nose normal. [] Eyes: PERRLA, EOMI, conjunctiva normal, no discharge. [] Neck: Normal range of motion, no tenderness, supple, no stridor. [] Cardiovascular:Heart rate regular rhythm, no murmur [] Lungs & Thorax: Bilateral breath sounds clear to auscultation [] Abdomen: Bowel sounds normal, soft, diffuse tenderness, no rebound, no guarding, no rigidity, no masses, no pulsatile masses. [] Skin: Warm, dry, no erythema, no rash. [] Back: No tenderness, no CVA tenderness. [] Extremities: No tenderness, no cyanosis, no clubbing, ROM intact, no edema. [] Neurologic: Alert and oriented X 3, normal motor function, normal sensory function, no focal deficits noted. [] Psychologic: Affect flat, mood normal. [] EKG EKG [] Radiology/Procedures Radiology/Procedures PROCEDURE: CT ABDOMEN PELVIS WO CONTRAST CT scan of the abdomen and pelvis without contrast 01/16/2019 CLINICAL HISTORY: Abdominal pain and bleeding with nausea and vomiting. TECHNIQUE: Unenhanced, contiguous, 3 mm axial sections were obtained through the abdomen and pelvis. One or more of the following individualized dose reduction techniques were utilized for this study: 1. Automated exposure control. 2. Adjustment of the mA and/or kV according to patient size. 3. Use of iterative reconstruction technique. FINDINGS: Comparison study is dated 07/21/2018. Images through the lung bases demonstrate minimal dependent subsegmental atelectasis bilaterally. There are minimal bilateral pleural effusions, right greater than left. A 1.6 cm rounded low-attenuation lesion is seen involving the right lobe of the liver. This likely represents a hepatic cyst. It is unchanged. The spleen is mildly enlarged measuring 13.7 cm in length. The pancreas, adrenal glands and kidneys are within normal limits. Atherosclerotic calcification of the abdominal aorta is seen. The abdominal aorta tapers normally. The gallbladder is well-distended. No free fluid or free air is seen within the abdomen. The bowel is difficult to evaluate without oral contrast material. There is no evidence of bowel obstruction. Air and stool is seen throughout the colon. The appendix is partially visualized and is within normal limits. Images through the pelvis demonstrate the urinary bladder distended with urine. A small amount of free fluid is seen within the pelvis. Calcifications are seen within the pelvis consistent with phleboliths. The osseous structures are unchanged. IMPRESSION: 1. Minimal bilateral pleural effusions, right greater than left. 2. Small amount of free fluid is seen within the pelvis. 3. No additional acute abnormality is seen.[] Course & Med Decision Making Course & Med Decision Making Pertinent Labs and Imaging studies reviewed. (See chart for details) ED course: Patient arrived, was placed in bed, and tolerated exam well. He was transferred to and from radiology with any complications. He was given protonic pump inhibitor via IV. After the return of the laboratory studies and imaging studies, initial discussion was made with hospitalist here at [facility]. Due to lack of GI specialist, it was deemed not appropriate to admit the patient here at [facility]. Consultation was made with the hospitalist at [facility]. Dr. Baeza graciously accepted the patient for transfer. Patient care endorsed to Dr. Orourke in the emergency department at 6 AM pending transfer. Medical decision making: Patient with a baseline anemia that appears to be stable. Patient has Egtxc-Pwqsd-Xauku syndrome and has previous history of needing cautery of blood vessels in the esophagus. Concerned that may be present again at this time. Her is no evidence of a significant acute anemia. No evidence of continued active bleeding. No evidence of a bleeding diathesis at this time. Transferring the patient for higher level of care where he can receive an EGD and further intervention as necessary.[] Dragon Disclaimer Dragon Disclaimer This electronic medical record was generated, in whole or in part, using a voice recognition dictation system. Departure Departure: Impression: Primary Impression: GI bleeding Additional Impressions: Ddzqj-Fkwbh-Ylfdx syndrome Abdominal pain Disposition: 05 TRANSFER OTHER Condition: IMPROVED Referrals: CRISS POWER MD (PCP) Problem Qualifiers Primary Impression: GI bleeding GI bleed type/associated pathology: unspecified gastrointestinal hemorrhage type Qualified Codes: K92.2 - Gastrointestinal hemorrhage, unspecified Additional Impressions: Abdominal pain Abdominal location: generalized Qualified Codes: R10.84 - Generalized abdominal pain VÍCTOR FLORES DO Jan 18, 2019 03:35
[2019-01-18] MEDS ORDERED: ONDANSETRON PF 4 MG/2 ML VIAL. IV ONE (03:45)
[2019-01-18] MEDS ORDERED: PANTOPRAZOLE IV 40 MG VIAL. IVP ONE (03:45)
[2019-01-18] MEDS ORDERED: IOHEXOL 300 MG/ML 75 ML VIAL. IV ONE (04:00)
[2019-01-18] MEDS ORDERED: CONTRAST GIVEN MC PRN (04:00)
[2019-01-18 05:00] LABS: BILIRUBIN,URINE NEG (NEG); CLARITY,URINE CLEAR; COLOR,URINE YELLOW; GLUCOSE,URINE 100 mg/dL (NEG)
[2019-01-18 05:00] LABS: ALBUMIN 3.7 g/dL (3.4-5.0); ALBUMIN/GLOBULIN RATIO 1.1 (1.0-1.7); CALCIUM 8.7 mg/dL (8.5-10.1); CREATININE 0.8 mg/dL (0.7-1.3); GFR 101.9; POTASSIUM 4.1 mmol/L (3.5-5.1); TOTAL BILIRUBIN 0.7 mg/dL (0.2-1.0); TOTAL PROTEIN 7.2 g/dL (6.4-8.2)
[2019-01-18 05:01] LABS: BACTERIA,URINE 0 /HPF (0-FEW); NITRITE,URINE NEG (NEG); RBC,URINE 0 /HPF (0-2); SQUAMOUS EPITHELIAL CELL,UR OCC /LPF; UROBILINOGEN,URINE 0.2 mg/dL (0.2 mg/dL); WBC,URINE OCC /HPF (0-4)
[2019-01-18 05:11] LABS: BASO # 0.1 x10^3/uL (0.0-0.2); BASO % 1 % (0-3); EOS # 0.2 x10^3/uL (0.0-0.7); EOS % 3 % (0-3); HEMATOCRIT 32.3 % (39.0-53.0); LYMPH # 1.8 x10^3/uL (1.0-4.8); LYMPH % 26 % (24-48); MEAN CORPUSCULAR HEMOGLOBIN 17 pg (25-35); MEAN CORPUSCULAR HGB CONC 28 g/dL (31-37); MEAN CORPUSCULAR VOLUME 62 fL (79-100); MONO # 0.5 x10^3/uL (0.0-1.1); MONO % 7 % (0-9); NEUT # 4.3 x10^3uL (1.8-7.7); NEUT % 64 % (31-73); PLATELET COUNT 454 x10^3/uL (140-400); RED BLOOD COUNT 5.24 x10^6/uL (4.30-5.70); WHITE BLOOD COUNT 6.8 x10^3/uL (4.0-11.0)
--- NOTE | 2019-01-18 05:25 | RAD ---
CT scan of the abdomen and pelvis without contrast 01/16/2019 CLINICAL HISTORY: Abdominal pain and bleeding with nausea and vomiting. TECHNIQUE: Unenhanced, contiguous, 3 mm axial sections were obtained through the abdomen and pelvis. One or more of the following individualized dose reduction techniques were utilized for this study: 1. Automated exposure control. 2. Adjustment of the mA and/or kV according to patient size. 3. Use of iterative reconstruction technique. FINDINGS: Comparison study is dated 07/21/2018. Images through the lung bases demonstrate minimal dependent subsegmental atelectasis bilaterally. There are minimal bilateral pleural effusions, right greater than left. A 1.6 cm rounded low-attenuation lesion is seen involving the right lobe of the liver. This likely represents a hepatic cyst. It is unchanged. The spleen is mildly enlarged measuring 13.7 cm in length. The pancreas, adrenal glands and kidneys are within normal limits. Atherosclerotic calcification of the abdominal aorta is seen. The abdominal aorta tapers normally. The gallbladder is well-distended. No free fluid or free air is seen within the abdomen. The bowel is difficult to evaluate without oral contrast material. There is no evidence of bowel obstruction. Air and stool is seen throughout the colon. The appendix is partially visualized and is within normal limits. Images through the pelvis demonstrate the urinary bladder distended with urine. A small amount of free fluid is seen within the pelvis. Calcifications are seen within the pelvis consistent with phleboliths. The osseous structures are unchanged. IMPRESSION: 1. Minimal bilateral pleural effusions, right greater than left. 2. Small amount of free fluid is seen within the pelvis. 3. No additional acute abnormality is seen. Electronically signed by: Patrick Benitez MD (01/18/2019 5:22 AM) [facility]
[2019-01-18 05:37] LABS: % BANDS 2 % (0-9); % BASOS 1 % (0-3); % EOS 1 % (0-5); % LYMPHS 20 % (24-48); % MONOS 4 % (0-10); % SEGS 72 % (35-66); ANISOCYTOSIS SLIGHT; HYPOCHROMIA MOD; MICROCYTOSIS MOD; PLT ESTIMATE INCREASED (ADEQUATE)
[2019-01-18] MEDS ORDERED: PANTOPRAZOLE 40 MG TABLET. PO ONE (06:15)
[2019-01-18] MEDS ORDERED: HYOSCYAMINE 0.125 MG TAB.RAPDIS PO ONE (06:15)
[2019-01-18] MEDS ORDERED: ONDANSETRON ODT 4 MG TAB.RAPDIS PO ONE (06:15)
[2019-01-18 10:32] VITALS: BP 104/73
== END 2019-01-18 10:36 | disposition short-term general hospital (02) ==
LOC: ER 03:15
DX: K92.2 Gastrointestinal hemorrhage, unspecified (principal); I78.0 Hereditary hemorrhagic telangiectasia; F20.9 Schizophrenia, unspecified; Z88.6 Allergy status to analgesic agent; Z91.041 Radiographic dye allergy status
CPT/HCPCS: 36415; 74176; 80053; 81001; 83690; 85007; 85025; 85610; 85730; 99285; Q0162

== ENCOUNTER 2019-02-28 15:27 | Emergency (ER) | payer OTHER ==
[~2019-02-28] VITALS: Ht 180.3 cm; Wt 58.0 kg
[2019-02-28 16:48] LABS: BASO # 0.1 x10^3/uL (0.0-0.2); BASO % 1 % (0-3); EOS # 0.1 x10^3/uL (0.0-0.7); EOS % 1 % (0-3); HEMATOCRIT 34.1 % (39.0-53.0); HEMOGLOBIN 9.6 g/dL (13.0-17.5); LYMPH # 1.5 x10^3/uL (1.0-4.8); LYMPH % 20 % (24-48); MEAN CORPUSCULAR HEMOGLOBIN 17 pg (25-35); MEAN CORPUSCULAR HGB CONC 28 g/dL (31-37); MEAN CORPUSCULAR VOLUME 62 fL (79-100); MONO # 0.3 x10^3/uL (0.0-1.1); MONO % 4 % (0-9); NEUT # 5.7 x10^3uL (1.8-7.7); NEUT % 74 % (31-73); PLATELET COUNT 523 x10^3/uL (140-400); RED BLOOD COUNT 5.53 x10^6/uL (4.30-5.70); RED CELL DISTRIBUTION WIDTH 20.7 % (11.5-14.5); WHITE BLOOD COUNT 7.7 x10^3/uL (4.0-11.0)
[2019-02-28 16:51] LABS: CALCIUM 8.9 mg/dL (8.5-10.1); CREATININE 1.3 mg/dL (0.7-1.3); GFR 58.2; POTASSIUM 3.9 mmol/L (3.5-5.1)
[2019-02-28 17:15] LABS: % BASOS 1 % (0-3); % EOS 3 % (0-5); % LYMPHS 12 % (24-48); % MONOS 3 % (0-10); % SEGS 81 % (35-66); PLT ESTIMATE INCREASED (ADEQUATE)
[2019-02-28 17:18] LABS: ANISOCYTOSIS MOD; BURR CELLS PRESENT; HYPOCHROMIA MOD; MICROCYTOSIS MOD; OVALOCYTES PRESENT; POIKILOCYTOSIS MOD; TEAR DROP CELLS PRESENT
--- NOTE | 2019-02-28 17:35 | PHYS DOC ---
Past History Past Medical History: Anemia, Bronchitis, Depression, DVT, GERD, Schizophrenia, Other Additional Past Medical Histor: Fdczi-Kqznj-Xscry Dz, Past Surgical History: Tonsillectomy, Other Additional Past Surgical Histo: duodenal surg Smoking: Non-smoker Alcohol Use: None Drug Use: None Adult General Chief Complaint Chief Complaint: BLOOD SUGAR PROBLEM [facility] HPI Patient is a 53-year-old male who presents with report of low blood sugar at home. Medics indicate that patient's sugar was 36 on their evaluation. Patient was given some glucose solution and upon arrival here his blood sugar was 37. Patient states that he is starting to feel better at this time. He states that he has not been eating anything over the last several days because he is afraid that his food is poisoned. Patient does have long history of similar complaints, not wanting to eat at home. He does have history of schizophrenia. He denies any suicidal or homicidal ideations.[] Review of Systems Review of Systems Constitutional: Denies fever or chills [] Respiratory: Denies cough or shortness of breath [] Cardiovascular: No additional information not addressed in HPI [] Musculoskeletal: Denies back pain or joint pain [] Integument: Denies rash or skin lesions [] Allergies Allergies Allergies Coded Allergies Type Severity Reaction Last Updated Verified aspirin Allergy Intermediate bleeding 11/26/18 Yes I S O L A T I O N *CONTACT* Allergy Unknown 04/10/18 Yes Physical Exam Physical Exam Constitutional: Well developed, well nourished, no acute distress, non-toxic appearance. [] Cardiovascular:Heart rate regular rhythm, no murmur [] Lungs & Thorax: Bilateral breath sounds clear to auscultation [] Abdomen: Bowel sounds normal, soft, no tenderness. [] Skin: Warm, dry, no erythema, no rash. [] Neurologic: Alert and oriented, no focal deficits noted. [] Current Patient Data Vital Signs Vital Signs Date Time Temp Pulse Resp B/P (MAP) Pulse Ox O2 Delivery O2 Flow Rate FiO2 02/28/19 15:33 97.9 70 18 100 Room Air Lab Results Laboratory Tests Test 02/28/19 16:32 White Blood Count 7.7 x10^3/uL (4.0-11.0) Red Blood Count 5.53 x10^6/uL (4.30-5.70) Hemoglobin 9.6 g/dL (13.0-17.5) L Hematocrit 34.1 % (39.0-53.0) L Mean Corpuscular Volume 62 fL (79-100) L Mean Corpuscular Hemoglobin 17 pg (25-35) L Mean Corpuscular Hemoglobin Concent 28 g/dL (31-37) L Red Cell Distribution Width 20.7 % (11.5-14.5) H Platelet Count 523 x10^3/uL (140-400) H Neutrophils (%) (Auto) 74 % (31-73) H Lymphocytes (%) (Auto) 20 % (24-48) L Monocytes (%) (Auto) 4 % (0-9) Eosinophils (%) (Auto) 1 % (0-3) Basophils (%) (Auto) 1 % (0-3) Neutrophils # (Auto) 5.7 x10^3uL (1.8-7.7) Lymphocytes # (Auto) 1.5 x10^3/uL (1.0-4.8) Monocytes # (Auto) 0.3 x10^3/uL (0.0-1.1) Eosinophils # (Auto) 0.1 x10^3/uL (0.0-0.7) Basophils # (Auto) 0.1 x10^3/uL (0.0-0.2) Segmented Neutrophils % 81 % (35-66) H Lymphocytes % 12 % (24-48) L Monocytes % 3 % (0-10) Eosinophils % 3 % (0-5) Basophils % 1 % (0-3) Platelet Estimate Increased (ADEQUATE) Hypochromasia Mod Poikilocytosis Mod Anisocytosis Mod Microcytosis Mod Tear Drop Cells Present Ovalocytes Present Ezekiel Cells Present Sodium Level 137 mmol/L (136-145) Potassium Level 3.9 mmol/L (3.5-5.1) Chloride Level 99 mmol/L (98-107) Carbon Dioxide Level 22 mmol/L (21-32) Anion Gap 16 (6-14) H Blood Urea Nitrogen 23 mg/dL (8-26) Creatinine 1.3 mg/dL (0.7-1.3) Estimated GFR (Cockcroft-Gault) 58.2 Glucose Level 126 mg/dL (70-99) H Calcium Level 8.9 mg/dL (8.5-10.1) EKG EKG [] Radiology/Procedures Radiology/Procedures [] Course & Med Decision Making Course & Med Decision Making Pertinent Labs and Imaging studies reviewed. (See chart for details) [] Dragon Disclaimer Dragon Disclaimer This electronic medical record was generated, in whole or in part, using a voice recognition dictation system. Departure Departure: Impression: Primary Impression: Hypoglycemia Disposition: HOME, SELF-CARE Condition: STABLE Referrals: CRISS POWER MD (PCP) Patient Instructions: Hypoglycemia (Low Blood Sugar) BOBBY PICKARD Jr. DO Feb 28, 2019 17:35
[2019-02-28 17:51] VITALS: BP 132/54
== END 2019-02-28 17:50 | disposition home or self-care (01) ==
LOC: ER 15:27
DX: E16.2 Hypoglycemia, unspecified (principal); K21.9 Gastro-esophageal reflux disease without esophagitis; F20.9 Schizophrenia, unspecified; Z86.2 Personal history of diseases of the blood and blood-forming organs and certain disorders involving the immune mechanism; Z86.718 Personal history of other venous thrombosis and embolism; Z88.6 Allergy status to analgesic agent; Z91.041 Radiographic dye allergy status
CPT/HCPCS: 36415; 80048; 82947; 85007; 85025; 99284

== ENCOUNTER 2019-03-01 19:45 | Emergency (ER) | payer OTHER ==
[~2019-03-01] VITALS: Ht 180.3 cm; Wt 58.0 kg
[2019-03-01] MEDS ORDERED: PANTOPRAZOLE IV 40 MG VIAL. IVP ONE (20:00)
--- NOTE | 2019-03-01 20:23 | RAD ---
CHEST AP ONLY History: Coughing or vomiting blood Comparison: July 17, 2018 Findings: Single view of the chest is submitted. There is no infiltrate, pneumothorax, or effusion. The pericardial cardiac silhouette is within normal limits in size. Impression: 1. No acute radiographic abnormality is identified. Electronically signed by: Mayank Freeman MD (03/01/2019 8:20 PM) [facility]
[2019-03-01 20:49] LABS: ALBUMIN 4.6 g/dL (3.4-5.0); ALBUMIN/GLOBULIN RATIO 1.1 (1.0-1.7); CALCIUM 9.4 mg/dL (8.5-10.1); CREATININE 1.2 mg/dL (0.7-1.3); GFR 63.8; POTASSIUM 4.1 mmol/L (3.5-5.1); TOTAL BILIRUBIN 1.1 mg/dL (0.2-1.0); TOTAL PROTEIN 8.7 g/dL (6.4-8.2)
[2019-03-01 20:50] LABS: BACTERIA,URINE 0 /HPF (0-FEW); BILIRUBIN,URINE NEG (NEG); CLARITY,URINE HAZY; COLOR,URINE AMBER; GLUCOSE,URINE NEG (NEG); HYALINE CASTS, URINE OCC /HPF; NITRITE,URINE NEG (NEG); RBC,URINE 0 /HPF (0-2); UROBILINOGEN,URINE 1 mg/dL (0.2 mg/dL)
[2019-03-01 20:52] LABS: SQUAMOUS EPITHELIAL CELL,UR OCC /LPF
[2019-03-01 20:53] LABS: GRANULAR CASTS,URINE OCC /HPF
[2019-03-01 21:00] LABS: BASO # 0.1 x10^3/uL (0.0-0.2); BASO % 1 % (0-3); EOS # 0.1 x10^3/uL (0.0-0.7); EOS % 1 % (0-3); HEMATOCRIT 33.5 % (39.0-53.0); HEMOGLOBIN 9.4 g/dL (13.0-17.5); LYMPH % 50 % (24-48); MEAN CORPUSCULAR HEMOGLOBIN 17 pg (25-35); MEAN CORPUSCULAR HGB CONC 28 g/dL (31-37); MEAN CORPUSCULAR VOLUME 60 fL (79-100); MONO # 0.3 x10^3/uL (0.0-1.1); MONO % 6 % (0-9); NEUT # 2.6 x10^3uL (1.8-7.7); NEUT % 42 % (31-73); PLATELET COUNT 487 x10^3/uL (140-400); RED BLOOD COUNT 5.54 x10^6/uL (4.30-5.70); RED CELL DISTRIBUTION WIDTH 20.7 % (11.5-14.5); WHITE BLOOD COUNT 6.1 x10^3/uL (4.0-11.0)
[2019-03-01 21:18] VITALS: BP 109/58
--- NOTE | 2019-03-01 22:30 | PHYS DOC ---
Past History Past Medical History: Other Additional Past Medical Histor: Jxfxh-Yujnu-Ddqol Dz, Past Surgical History: Tonsillectomy, Other Additional Past Surgical Histo: duodenal surg Smoking: Non-smoker Alcohol Use: None Drug Use: None Adult General Chief Complaint Chief Complaint: ABDOMINAL PAIN HPI HPI Patient is a 53-year-old male presenting with chief complaint of spit up a little bit of blood he tells me that there is basically saliva with some streaks of blood in it he got concerned and came to the ER for evaluation also earlier his lower abdomen was hurting some and seemed has decreased some now. Of note patient is frequent ER visits for multiple different complaints several complaints in the past related to this type of situation as well. Denies fever no shortness of breath no chest pain Review of Systems Review of Systems Constitutional: Denies fever or chills [] Eyes: Denies change in visual acuity, redness, or eye pain [] HENT: Denies nasal congestion or sore throat [] Respiratory: Denies cough or shortness of breath [] Cardiovascular: No additional information not addressed in HPI [] GI: Denies abdominal pain, nausea, vomiting, bloody stools or diarrhea []patient reports brown stool Musculoskeletal: Denies back pain or joint pain [] Integument: Denies rash or skin lesions [] Neurologic: Denies headache, focal weakness or sensory changes [] Endocrine: Denies polyuria or polydipsia [] All other systems were reviewed and found to be within normal limits, except as documented in this note. Current Medications Current Medications Current Medications Medications (Trade) Dose Ordered Sig/Tomasz Start Time Stop Time Status Last Admin Dose Admin Pantoprazole Sodium (Protonix Vial) 40 mg 1X ONCE 03/01/19 20:00 03/01/19 20:01 DC 03/01/19 20:33 40 MG Allergies Allergies Allergies Coded Allergies Type Severity Reaction Last Updated Verified aspirin Allergy Intermediate bleeding 11/26/18 Yes I S O L A T I O N *CONTACT* Allergy Unknown 04/10/18 Yes Physical Exam Physical Exam Constitutional: Well developed, well nourished, no acute distress, non-toxic appearance. [] HENT: Normocephalic, atraumatic, bilateral external ears normal, oropharynx moist, no oral exudates, nose normal. [] Eyes: PERRLA, EOMI, conjunctiva normal, no discharge. [] Neck: Normal range of motion, no tenderness, supple, no stridor. [] Cardiovascular:Heart rate regular rhythm, no murmur [] Lungs & Thorax: Bilateral breath sounds clear to auscultation [] Abdomen: Bowel sounds normal, soft, no tenderness, no masses, no pulsatile masses. [] Skin: Warm, dry, no erythema, no rash. [] Back: No tenderness, no CVA tenderness. [] Extremities: No tenderness, no cyanosis, no clubbing, ROM intact, no edema. [] Neurologic: Alert and oriented X 3, normal motor function, normal sensory function, no focal deficits noted. [] Psychologic: Affect normal, judgement normal, mood normal. [] Current Patient Data Vital Signs Vital Signs Date Time Temp Pulse Resp B/P (MAP) Pulse Ox O2 Delivery O2 Flow Rate FiO2 03/01/19 21:18 65 18 109/58 (75) 100 Room Air Lab Results Laboratory Tests Test 03/01/19 20:08 03/01/19 20:15 White Blood Count 6.1 x10^3/uL (4.0-11.0) Red Blood Count 5.54 x10^6/uL (4.30-5.70) Hemoglobin 9.4 g/dL (13.0-17.5) L Hematocrit 33.5 % (39.0-53.0) L Mean Corpuscular Volume 60 fL (79-100) L Mean Corpuscular Hemoglobin 17 pg (25-35) L Mean Corpuscular Hemoglobin Concent 28 g/dL (31-37) L Red Cell Distribution Width 20.7 % (11.5-14.5) H Platelet Count 487 x10^3/uL (140-400) H Neutrophils (%) (Auto) 42 % (31-73) Lymphocytes (%) (Auto) 50 % (24-48) H Monocytes (%) (Auto) 6 % (0-9) Eosinophils (%) (Auto) 1 % (0-3) Basophils (%) (Auto) 1 % (0-3) Neutrophils # (Auto) 2.6 x10^3uL (1.8-7.7) Lymphocytes # (Auto) 3.0 x10^3/uL (1.0-4.8) Monocytes # (Auto) 0.3 x10^3/uL (0.0-1.1) Eosinophils # (Auto) 0.1 x10^3/uL (0.0-0.7) Basophils # (Auto) 0.1 x10^3/uL (0.0-0.2) Platelet Estimate Pending Prothrombin Time 11.9 SEC (9.4-11.4) H Prothrombin Time INR 1.1 (0.9-1.1) Urine Collection Type Unknown Urine Color Peyton Urine Clarity Hazy Urine pH 5.5 Urine Specific [place] 1.025 Urine Protein 100 mg/dl (NEG-TRACE) Urine Glucose (UA) Neg mg/dL (NEG) Urine Ketones (Stick) 40 mg/dL (NEG) Urine Blood Neg (NEG) Urine Nitrite Neg (NEG) Urine Bilirubin Neg (NEG) Urine Urobilinogen Dipstick 1 mg/dL (0.2 mg/dL) Urine Leukocyte Esterase Neg (NEG) Urine RBC 0 /HPF (0-2) Urine WBC 1-4 /HPF (0-4) Urine Squamous Epithelial Cells Occ /LPF Urine Bacteria 0 /HPF (0-FEW) Urine Hyaline Casts Occ /HPF Urine Granular Casts Occ /HPF Urine Mucus Mod /LPF Sodium Level 139 mmol/L (136-145) Potassium Level 4.1 mmol/L (3.5-5.1) Chloride Level 99 mmol/L (98-107) Carbon Dioxide Level 25 mmol/L (21-32) Anion Gap 15 (6-14) H Blood Urea Nitrogen 22 mg/dL (8-26) Creatinine 1.2 mg/dL (0.7-1.3) Estimated GFR (Cockcroft-Gault) 63.8 BUN/Creatinine Ratio 18 (6-20) Glucose Level 81 mg/dL (70-99) Calcium Level 9.4 mg/dL (8.5-10.1) Total Bilirubin 1.1 mg/dL (0.2-1.0) H Aspartate Amino Transferase (AST) 19 U/L (15-37) Alanine Aminotransferase (ALT) 18 U/L (16-63) Alkaline Phosphatase 105 U/L (46-116) Total Protein 8.7 g/dL (6.4-8.2) H Albumin 4.6 g/dL (3.4-5.0) Albumin/Globulin Ratio 1.1 (1.0-1.7) Lipase 239 U/L (73-393) EKG EKG [] Radiology/Procedures Radiology/Procedures [] Impressions: Chest x-ray negative acute Course & Med Decision Making Course & Med Decision Making Pertinent Labs and Imaging studies reviewed. (See chart for details) []53-year-old male history of Gfdjr-Hweoh-Vuuwh Rendu Presenting with basically some streaks of blood in the saliva. Patient has history of frequent ER visits for surgery very similar complaints hemoglobin actually is pretty much the same as it was yesterday when he was here for hypoglycemia. Currently he is doing well he is observed in the ER with no further bleeding B when essentially within normal limits chemistry panel not consistent with acute GI bleeding at this time. Patient was given return precautions to come back for any new or concerning symptoms. At this time given his frequent ER visits stable vital signs stable hemoglobin at that he is safe for outpatient management in addition his abdomen was nontender in the emergency room Dragon Disclaimer Dragon Disclaimer This electronic medical record was generated, in whole or in part, using a voice recognition dictation system. Departure Departure: Impression: Primary Impression: Chronic anemia Disposition: HOME, SELF-CARE Condition: STABLE Referrals: CRISS POWER MD (PCP) Patient Instructions: Anemia, FAQs ROSY DUQUE MD Mar 01, 2019 22:30
[2019-03-01 23:02] LABS: % BASOS 1 % (0-3); % SEGS 63 % (35-66)
[2019-03-01 23:03] LABS: % LYMPHS 31 % (24-48); % MONOS 5 % (0-10)
[2019-03-01 23:06] LABS: BURR CELLS OCC; OVALOCYTES OCC; PLT ESTIMATE INCREASED (ADEQUATE); SCHISTOCYTES OCC; TEAR DROP CELLS OCC
[2019-03-01 23:07] LABS: ANISOCYTOSIS MOD; HYPOCHROMIA MOD; MICROCYTOSIS SLIGHT
== END 2019-03-01 21:50 | disposition home or self-care (01) ==
LOC: ER 19:45
DX: D64.89 Other specified anemias (principal); I78.0 Hereditary hemorrhagic telangiectasia; Z88.6 Allergy status to analgesic agent; Z91.041 Radiographic dye allergy status
CPT/HCPCS: 36415; 71045; 80053; 81001; 83690; 85007; 85025; 85610; 96374; 99285; C9113

== ENCOUNTER 2019-03-21 10:33 | Emergency (ER) | payer OTHER ==
[~2019-03-21] VITALS: Ht 180.3 cm; Wt 58.0 kg
[2019-03-21 10:54] VITALS: BP 112/56
[2019-03-21] MEDS ORDERED: ACETAMINOPHEN 500 MG TABLET PO ONE (11:00)
--- NOTE | 2019-03-21 11:00 | PHYS DOC ---
Past History Past Medical History: Other Additional Past Medical Histor: Zhsfj-Slkgi-Bkftk Dz, Past Surgical History: Tonsillectomy, Other Additional Past Surgical Histo: duodenal surg Smoking: Non-smoker Alcohol Use: None Drug Use: None Adult General Chief Complaint Chief Complaint: Neck Pain HPI HPI Patient is a 53-year-old male presents with diffuse neck pain for the past several days. No difficulty breathing or swallowing. Denies any trauma. Denies any fever. He has taken no medicine to help with the discomfort. Discomfort is mild to moderate. Nothing seems to make it better or worse. No recent changes in weight.[] Review of Systems Review of Systems Constitutional: Denies fever or chills [] Eyes: Denies change in visual acuity, redness, or eye pain [] HENT: Denies nasal congestion or sore throat [] Respiratory: Denies cough or shortness of breath [] Cardiovascular: No chest pain or palpitations[] GI: Denies abdominal pain, nausea, vomiting, bloody stools or diarrhea [] : Denies dysuria or hematuria [] Musculoskeletal: Denies back pain or joint pain [] Integument: Denies rash or skin lesions [] Neurologic: Denies headache, focal weakness or sensory changes [] Endocrine: Denies polyuria or polydipsia [] All other systems were reviewed and found to be within normal limits, except as documented in this note. Current Medications Current Medications Current Medications Medications (Trade) Dose Ordered Sig/[facility] Start Time Stop Time Status Last Admin Dose Admin Acetaminophen (Tylenol) 500 mg 1X ONCE 03/21/19 11:00 03/21/19 11:01 Allergies Allergies Allergies Coded Allergies Type Severity Reaction Last Updated Verified aspirin Allergy Intermediate bleeding 11/26/18 Yes I S O L A T I O N *CONTACT* Allergy Unknown 04/10/18 Yes Physical Exam Physical Exam Constitutional: Well developed, well nourished, no acute distress, non-toxic appearance. [] HENT: Normocephalic, atraumatic, bilateral external ears normal, oropharynx [address], no oral exudates, nose normal. [] Eyes: PERRLA, EOMI, conjunctiva normal, no discharge. [] Neck: Normal range of motion, diffuse tenderness, no meningismus, no cervical lymphadenopathy, no posterior midline tenderness, no step-off, no crepitus, supple, no stridor. [] Cardiovascular:Heart rate regular rhythm, no murmur [] Lungs & Thorax: Bilateral breath sounds clear to auscultation [] Abdomen: Not examined. [] Skin: Warm, dry, no erythema, no rash. [] Back: No tenderness, no CVA tenderness. [] Extremities: No tenderness, no cyanosis, no clubbing, ROM intact, no edema. [] Neurologic: Alert and oriented X 3, normal motor function, normal sensory function, no focal deficits noted. [] Psychologic: Affect normal, judgement normal, mood normal. [] EKG EKG [] Radiology/Procedures Radiology/Procedures PROCEDURE: CERVICAL SPINE 2-3V Examination: CERVICAL SPINE 2-3V History: Neck pain Comparison/Correlation: None Findings: Total of 4 images of the cervical spine were obtained. Alignment is normal. Vertebral body heights are adequate. Moderate C5-6 and C6/7 disc space narrowing noted. No fracture or bony destruction. Prevertebral soft tissues are normal. Thyroid cartilage calcification is notable. Impression: No acute process.[] Course & Med Decision Making Course & Med Decision Making Pertinent Labs and Imaging studies reviewed. (See chart for details) ED course: Patient arrived, was placed in bed, and tolerated exam well. He was transported to and from radiology with any complications. After return of the imaging findings, these were discussed with the patient who voiced understanding. All questions were answered. He was discharged in improved condition. Medical decision making: There is no evidence of a fracture, dislocation, lytic lesion, neurologic, or vascular injury. No evidence of an abscess, airway obstruction, nor esophageal obstruction.[] Dragon Disclaimer Dragon Disclaimer This electronic medical record was generated, in whole or in part, using a voice recognition dictation system. Departure Departure: Impression: Primary Impression: Neck pain Disposition: 01 HOME, SELF-CARE Condition: IMPROVED Referrals: CRISS POWER MD (PCP) Follow-up in 2 days Patient Instructions: Cervical Strain and Sprain with [facility] Additional Instructions: Follow-up with your regular doctor in 2 days. Return to the ER if worsening pain, weakness, numbness, or any other concerns. Scripts Acetaminophen (TYLENOL) 325 Mg Tablet 1-2 TAB PO QID for PAIN, #60 TAB 0 Refills Prov: VÍCTOR FLORES DO 03/21/19 Orphenadrine Citrate (ORPHENADRINE CITRATE) 100 Mg Tablet.er 100 MG PO BID for NECK PAIN, #20 TAB.SR Prov: VÍCTOR FLORES DO 03/21/19 VÍCTOR FLORES DO Mar 21, 2019 11:00
--- NOTE | 2019-03-21 11:56 | RAD ---
Examination: CERVICAL SPINE 2-3V History: Neck pain Comparison/Correlation: None Findings: Total of 4 images of the cervical spine were obtained. Alignment is normal. Vertebral body heights are adequate. Moderate C5-6 and C6/7 disc space narrowing noted. No fracture or bony destruction. Prevertebral soft tissues are normal. Thyroid cartilage calcification is notable. Impression: No acute process. Electronically signed by: Gianni Juarez MD (03/21/2019 11:53 AM) [facility]
[2019-03-21] MEDS ORDERED: ORPH-16 PO (12:12)
[2019-03-21] MEDS ORDERED: ACET325T9 PO (12:12)
== END 2019-03-21 12:26 | disposition home or self-care (01) ==
LOC: ER 10:33
DX: M54.2 Cervicalgia (principal); I78.0 Hereditary hemorrhagic telangiectasia; Z88.6 Allergy status to analgesic agent; Z91.041 Radiographic dye allergy status
CPT/HCPCS: 72040; 99284

== ENCOUNTER 2019-04-12 06:15 | Emergency (ER) | payer OTHER ==
[~2019-04-12] VITALS: Ht 180.3 cm; Wt 64.0 kg
[~2019-04-12 06:15] MED LIST changes: +ACET325T9 PO; +ORPH-16 PO
[2019-04-12] MEDS ORDERED: IV RINGERS SOLUTION,LACTATED 1,000 ML IV SCH (06:30)
--- NOTE | 2019-04-12 06:33 | EKG ---
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
--- NOTE | 2019-04-12 06:37 | PHYS DOC ---
Past History Past Medical History: Diabetes, Schizophrenia Additional Past Medical Histor: Qvxgl-Adogk-Xkcgt Dz, Past Surgical History: No Surgical History Additional Past Surgical Histo: duodenal surg Smoking: Non-smoker Alcohol Use: None Drug Use: None Adult General HPI HPI Patient is a 84-year-old male presents with vomiting up blood this morning. He reports it as being approximately 1/2 cup in volume. He denies having this happen before. He does have a history of [place] Rendu disease with esophageal varices that have had to be banded before or. He denies any black tarry stools nor bright red blood in his stool. Denies any recent travel or trauma. Denies any weakness. He notes that he has a generalized abdominal pain that he is unable to characterize. Denies any rashes or easy bruising. Denies being on any blood thinner. Denies taking any recent NSAIDs. Nothing makes the abdominal discomfort that her or worse.[] Review of Systems Review of Systems Constitutional: Denies fever or chills [] Eyes: Denies change in visual acuity, redness, or eye pain [] HENT: Denies nasal congestion or sore throat [] Respiratory: Denies cough or shortness of breath [] Cardiovascular: No chest pain or palpitations[] GI: See history of present illness[] : Denies dysuria or hematuria [] Musculoskeletal: Denies back pain or joint pain [] Integument: Denies rash or skin lesions [] Neurologic: Denies headache, focal weakness or sensory changes [] Endocrine: Denies polyuria or polydipsia [] All other systems were reviewed and found to be within normal limits, except as documented in this note. Allergies Allergies Allergies Coded Allergies Type Severity Reaction Last Updated Verified aspirin Allergy Intermediate bleeding 11/26/18 Yes I S O L A T I O N *CONTACT* Allergy Unknown 04/10/18 Yes Physical Exam Physical Exam Constitutional: Well developed, well nourished, no acute distress, non-toxic appearance. [] HENT: Normocephalic, atraumatic, bilateral external ears normal, oropharynx moist, no oral exudates, there is blood streaking in the posterior oral pharynx, nose normal. [] Eyes: PERRLA, EOMI, conjunctiva normal, no discharge. [] Neck: Normal range of motion, no tenderness, supple, no stridor. [] Cardiovascular:Heart rate regular rhythm, no murmur [] Lungs & Thorax: Bilateral breath sounds clear to auscultation [] Abdomen: Bowel sounds normal, soft, diffuse tenderness without any rebound, no guarding, no rigidity, no masses, no pulsatile masses. [] Skin: Warm, dry, no erythema, no rash. [] Back: No tenderness, no CVA tenderness. [] Extremities: No tenderness, no cyanosis, no clubbing, ROM intact, no edema. [] Neurologic: Alert and oriented X 3, normal motor function, normal sensory function, no focal deficits noted. [] Psychologic: Affect flat. [] EKG EKG EKG shows a sinus rhythm at 75 bpm, normal axis, normal QTC, no ST elevations. Interpreted by me at 0635[] Radiology/Procedures Radiology/Procedures PROCEDURE: CT ABD PELV W/ IV CONTRST ONLY PQRS Compliance Statement: One or more of the following individualized dose reduction techniques were utilized for this examination: 1. Automated exposure control 2. Adjustment of the mA and/or kV according to patient size 3. Use of iterative reconstruction technique CT abdomen/pelvis without contrast 04/12/2019 6:23 AM INDICATION: Diffuse abdominal pain and vomiting blood. COMPARISON: 01/18/2019 CT abdomen/pelvis without contrast TECHNIQUE: Multiple axial CT images of the abdomen and pelvis were obtained without intravenous contrast. Coronal and sagittal reformats are provided. FINDINGS: There is a 11 x 9 mm solid noncalcified pulmonary nodule at right lung base (series 2, image 10). This finding stable from 01/18/2019 and 07/26/2018. Heart size within normal limits. Evaluation of the solid abdominal viscera is limited by lack of intravenous contrast. Simple cyst is noted at the inferior right hepatic lobe measuring 15 mm. Spleen is normal in appearance. Bilateral adrenal glands, pancreas and gallbladder are normal in appearance. Abdominal aorta is normal in course and caliber. There are no pathologically enlarged lymph nodes. Trace free fluid is identified within the dependent portion of the pelvis. No free intraperitoneal air. The kidneys are relatively symmetric in appearance. There is no suspicious renal mass within the limitations of a noncontrast examination. There is no hydronephrosis. There are no calculi within the kidneys, ureters or urinary bladder. Small large bowel are normal in caliber. Minimal pericolonic inflammatory changes are identified involving the right colon. The appendix is not definitively visualized. Moderate amount of stool is noted throughout the colon. Stomach is mildly distended with debris. Urinary bladder is within normal limits given degree of distention. No suspicious pelvic mass is identified. No suspicious osseous abnormality is identified. Chronic L5 pars defects are identified with minimal anterolisthesis of L5 on S1. IMPRESSION: 1. Mild pericolonic inflammatory changes are identified involving the right colon, nonspecific and may be associated with mild colitis. Appendix is not definitively visualized. 2. No evidence for obstructive uropathy. 3. Trace free fluid within the dependent portion of the pelvis, stable. 4. Stable 11 x 9 mm solid noncalcified pulmonary nodule at the right lung base, not significant change since 07/21/2018. 6 month follow-up chest CT is recommended to ensure stability.[] Course & Med Decision Making Course & Med Decision Making Pertinent Labs and Imaging studies reviewed. (See chart for details) ED course: Patient arrived, was placed in bed, and tolerated exam well. IV acc ess was established, laboratory testing was obtained. Due to a broken part and the CT scanner next to the emergency department, the patient was taken up to the hospital to have his CT performed. Unfortunately there was extravasation of contrast during the contrast administration of the CT scan. Patient was placed in a warm blanket. He was distally neurovascularly intact after the contrast. After the return of laboratory and imaging findings, these were discussed with the patient as well as with the hospitalist. Patient was accepted for transfer to [facility] because of GI capabilities that are not available at [facility]. He was transferred in improved condition with all questions answered. Medical decision makin-year-old male with hematemesis. He has a history of Khbwt-Acdyr-Xlrby syndrome, as well as esophageal varices. It is noted that his hemoglobin his dropped from his usual baseline. His vitals have remained stable, do not see an indication to administer emergency release blood at this point. He is being transferred to a facility that has the capability of performing GI evaluation.[] Dragon Disclaimer Dragon Disclaimer This electronic medical record was generated, in whole or in part, using a voice recognition dictation system. Departure Departure: Impression: Primary Impression: Hematemesis Additional Impressions: Zpdvf-Llwip-Uhsoi disease Anemia Disposition: 05 TRANSFER OTHER Admitting Physician: Srinivasan Morris Condition: IMPROVED Referrals: JANNET,CRISS L MD (PCP) Problem Qualifiers Primary Impression: Hematemesis Nausea presence: unspecified Qualified Codes: K92.0 - Hematemesis Additional Impressions: Anemia Anemia type: unspecified type Qualified Codes: D64.9 - Anemia, unspecified VÍCTOR FLORES DO Apr 12, 2019 06:37
[2019-04-12 06:48] LABS: HEMATOCRIT 30.9 % (39.0-53.0); HEMOGLOBIN 8.5 g/dL (13.0-17.5); MEAN CORPUSCULAR HEMOGLOBIN 17 pg (25-35); MEAN CORPUSCULAR HGB CONC 27 g/dL (31-37); MEAN CORPUSCULAR VOLUME 60 fL (79-100); PLATELET COUNT 513 x10^3/uL (140-400); RED BLOOD COUNT 5.13 x10^6/uL (4.30-5.70); WHITE BLOOD COUNT 6.3 x10^3/uL (4.0-11.0)
[2019-04-12 07:00] LABS: ALBUMIN 4.5 g/dL (3.4-5.0); ALBUMIN/GLOBULIN RATIO 1.2 (1.0-1.7); CALCIUM 9.1 mg/dL (8.5-10.1); GFR 78.5; POTASSIUM 4.5 mmol/L (3.5-5.1); TOTAL BILIRUBIN 0.6 mg/dL (0.2-1.0); TOTAL PROTEIN 8.2 g/dL (6.4-8.2)
[2019-04-12] MEDS ORDERED: HYOSCYAMINE 0.125 MG TAB.RAPDIS PO ONE (07:00)
[2019-04-12] MEDS ORDERED: PANTOPRAZOLE IV 40 MG VIAL. IVP ONE (07:00)
[2019-04-12 07:25] LABS: % EOS 5 % (0-5); % LYMPHS 14 % (24-48); % MONOS 2 % (0-10); % SEGS 79 % (35-66); PLT ESTIMATE INCREASED (ADEQUATE)
[2019-04-12 07:26] LABS: ANISOCYTOSIS MOD; HYPOCHROMIA MOD; MICROCYTOSIS MOD; OVALOCYTES FEW; POIKILOCYTOSIS MOD; POLYCHROMASIA SLIGHT
[2019-04-12 07:27] LABS: TEAR DROP CELLS OCC
[2019-04-12 07:52] LABS: BACTERIA,URINE 0 /HPF (0-FEW); BILIRUBIN,URINE NEG (NEG); CLARITY,URINE HAZY; COLOR,URINE YELLOW; GLUCOSE,URINE NEG (NEG); HYALINE CASTS, URINE OCC /HPF; NITRITE,URINE NEG (NEG); RBC,URINE OCC /HPF (0-2); SQUAMOUS EPITHELIAL CELL,UR OCC /LPF; UROBILINOGEN,URINE 1 mg/dL (0.2 mg/dL); WBC,URINE OCC /HPF (0-4)
[2019-04-12] MEDS ORDERED: IOHEXOL 300 MG/ML 75 ML VIAL. IV ONE (08:00)
--- NOTE | 2019-04-12 09:11 | RAD ---
PQRS Compliance Statement: One or more of the following individualized dose reduction techniques were utilized for this examination: 1. Automated exposure control 2. Adjustment of the mA and/or kV according to patient size 3. Use of iterative reconstruction technique CT abdomen/pelvis without contrast 04/12/2019 6:23 AM INDICATION: Diffuse abdominal pain and vomiting blood. COMPARISON: 01/18/2019 CT abdomen/pelvis without contrast TECHNIQUE: Multiple axial CT images of the abdomen and pelvis were obtained without intravenous contrast. Coronal and sagittal reformats are provided. FINDINGS: There is a 11 x 9 mm solid noncalcified pulmonary nodule at right lung base (series 2, image 10). This finding stable from 01/18/2019 and 07/26/2018. Heart size within normal limits. Evaluation of the solid abdominal viscera is limited by lack of intravenous contrast. Simple cyst is noted at the inferior right hepatic lobe measuring 15 mm. Spleen is normal in appearance. Bilateral adrenal glands, pancreas and gallbladder are normal in appearance. Abdominal aorta is normal in course and caliber. There are no pathologically enlarged lymph nodes. Trace free fluid is identified within the dependent portion of the pelvis. No free intraperitoneal air. The kidneys are relatively symmetric in appearance. There is no suspicious renal mass within the limitations of a noncontrast examination. There is no hydronephrosis. There are no calculi within the kidneys, ureters or urinary bladder. Small large bowel are normal in caliber. Minimal pericolonic inflammatory changes are identified involving the right colon. The appendix is not definitively visualized. Moderate amount of stool is noted throughout the colon. Stomach is mildly distended with debris. Urinary bladder is within normal limits given degree of distention. No suspicious pelvic mass is identified. No suspicious osseous abnormality is identified. Chronic L5 pars defects are identified with minimal anterolisthesis of L5 on S1. IMPRESSION: 1. Mild pericolonic inflammatory changes are identified involving the right colon, nonspecific and may be associated with mild colitis. Appendix is not definitively visualized. 2. No evidence for obstructive uropathy. 3. Trace free fluid within the dependent portion of the pelvis, stable. 4. Stable 11 x 9 mm solid noncalcified pulmonary nodule at the right lung base, not significant change since 07/21/2018. 6 month follow-up chest CT is recommended to ensure stability. Electronically signed by: Caroline Kelly MD (04/12/2019 9:08 AM) [facility]
[2019-04-12 10:33] VITALS: BP 107/65
== END 2019-04-12 11:40 | disposition short-term general hospital (02) ==
LOC: ER 06:15
DX: K92.0 Hematemesis (principal); D64.9 Anemia, unspecified; E11.9 Type 2 diabetes mellitus without complications; F20.9 Schizophrenia, unspecified; I78.0 Hereditary hemorrhagic telangiectasia; Z88.6 Allergy status to analgesic agent; Z91.041 Radiographic dye allergy status
CPT/HCPCS: 36415; 74177; 80053; 81001; 83690; 84484; 85007; 85025; 85610; 85730; 93005; 96374; 99285; C9113; J7120; Q9967

== ENCOUNTER → 2019-06-29 | Outpatient (CLI) | payer OTHER ==
[2019-06-29 15:43] LABS: BASO % 1 % (0-3); EOS # 0.1 x10^3/uL (0.0-0.7); EOS % 2 % (0-3); HEMATOCRIT 29.8 % (39.0-53.0); HEMOGLOBIN 8.6 g/dL (13.0-17.5); LYMPH # 1.9 x10^3/uL (1.0-4.8); LYMPH % 36 % (24-48); MEAN CORPUSCULAR HEMOGLOBIN 18 pg (25-35); MEAN CORPUSCULAR HGB CONC 29 g/dL (31-37); MEAN CORPUSCULAR VOLUME 63 fL (79-100); MONO # 0.3 x10^3/uL (0.0-1.1); MONO % 6 % (0-9); NEUT # 2.8 x10^3uL (1.8-7.7); NEUT % 55 % (31-73); PLATELET COUNT 410 x10^3/uL (140-400); RED BLOOD COUNT 4.71 x10^6/uL (4.30-5.70); RED CELL DISTRIBUTION WIDTH 21.6 % (11.5-14.5); WHITE BLOOD COUNT 5.1 x10^3/uL (4.0-11.0)
[2019-06-29 15:49] LABS: ALBUMIN 3.7 g/dL (3.4-5.0); ALBUMIN/GLOBULIN RATIO 1.1 (1.0-1.7); CALCIUM 8.3 mg/dL (8.5-10.1); CREATININE 0.8 mg/dL (0.7-1.3); GFR 101.5; POTASSIUM 3.9 mmol/L (3.5-5.1); TOTAL BILIRUBIN 0.3 mg/dL (0.2-1.0); TOTAL PROTEIN 7.1 g/dL (6.4-8.2)
[2019-06-29 17:27] LABS: % BANDS 2 % (0-9); % LYMPHS 29 % (24-48); % MONOS 4 % (0-10); % SEGS 63 % (35-66)
[2019-06-29 17:28] LABS: % BASOS 0 % (0-3); % EOS 2 % (0-5); ANISOCYTOSIS MARKED; HYPOCHROMIA MARKED; MICROCYTOSIS MARKED; OVALOCYTES MOD; PLT ESTIMATE INCREASED (ADEQUATE); POIKILOCYTOSIS PRESENT; TEAR DROP CELLS OCC
== END | disposition home or self-care (01) ==
LOC: LAB 13:59
PROVIDERS: ATTEND Clinical Nurse Specialist Psychiatric/Mental Health, Adult
DX: Z79.899 Other long term (current) drug therapy (principal)
CPT/HCPCS: 36415; 80053; 80061; 84146; 85007; 85025

== ENCOUNTER 2019-08-01 05:55 | Emergency (ER) | payer OTHER ==
[~2019-08-01] VITALS: Ht 180.3 cm; Wt 67.0 kg
[2019-08-01 06:04] VITALS: BP 109/56
--- NOTE | 2019-08-01 07:46 | PHYS DOC ---
Past History Past Medical History: Hypothyroid, Schizophrenia Additional Past Medical Histor: Nvwwx-Tsfrg-Usksy Dz Past Surgical History: Tonsillectomy, Other Additional Past Surgical Histo: duodenal surg, hernia repair Smoking: Non-smoker Alcohol Use: None Drug Use: None Adult General Chief Complaint Chief Complaint: DEPRESSION HPI HPI Patient is a 54-year-old male with history of schizophrenia well-known to this facility presents with depression. Patient denies SI, HI but does suffer from chronic auditory hallucinations delusions. States that he is depressed due to his many medical mental health problems. [facility] Abilify [facility]. He is compliant with therapy but does not take daily or routine medications as "the voices" tell him not to. No drugs or alcohol. No other acute medical symptoms or complaints. Patient did walk to the ED as per his usual. [] Review of Systems Review of Systems Review symptoms as per history of present illness. All other review symptoms are negative. All other systems were reviewed and found to be within normal limits, except as documented in this note. Allergies Allergies Allergies Coded Allergies Type Severity Reaction Last Updated Verified aspirin Allergy Intermediate bleeding 11/26/18 Yes I S O L A T I O N *CONTACT* Allergy Unknown 04/10/18 Yes Physical Exam Physical Exam Constitutional: Well developed, well nourished, no acute distress, non-toxic appearance. [] HENT: Normocephalic, atraumatic, bilateral external ears normal, oropharynx moist, no oral exudates, nose normal. [] Eyes: PERRLA, EOMI, conjunctiva normal, no discharge. [] Neck: Normal range of motion, no tenderness, supple, no stridor. [] Cardiovascular:Heart rate regular rhythm, no murmur [] Lungs & Thorax: Bilateral breath sounds clear to auscultation [] Abdomen: Bowel sounds normal, soft, no tenderness. [] Skin: Warm, dry, no erythema, no rash. [] Back: No tenderness. [] Extremities: No tenderness, no cyanosis, no clubbing, ROM intact, no edema. [] Neurologic: Alert and oriented, CN intact, normal motor function, normal sensory function, no focal deficits noted. [] Psychologic: Affect flat, judgement normal, mood normal. No HI or SI.[] Current Patient Data Vital Signs Vital Signs Date Time Temp Pulse Resp B/P (MAP) Pulse Ox O2 Delivery O2 Flow Rate FiO2 08/01/19 06:04 97.5 70 16 109/56 (73) 100 Room Air EKG EKG [] Radiology/Procedures Radiology/Procedures [] Course & Med Decision Making Course & Med Decision Making Pertinent Labs and Imaging studies reviewed. (See chart for details) [Patient does not meet criteria for emergent inpatient hospitalization or ad ditional ED screening. Patient's symptoms/solutions discussed with staff member move encourage patient to follow-up with the guidance Center'. Return precautions reviewed.] Dragon Disclaimer Dragon Disclaimer This electronic medical record was generated, in whole or in part, using a voice recognition dictation system. Departure Departure: Impression: Primary Impression: Depressed Disposition: 01 HOME, SELF-CARE Condition: STABLE Patient Instructions: Depression, Adult, Hyqp-lo-Tuqy Additional Instructions: Please go home and rest. Fill Syntrhoid perscription. Follow up with [facility] for depression screening and your medication provider. DONTAE CHASE DO Aug 01, 2019 07:46
== END 2019-08-01 07:50 | disposition home or self-care (01) ==
LOC: ER 05:55
DX: F32.9 Major depressive disorder, single episode, unspecified (principal); E03.9 Hypothyroidism, unspecified; F20.9 Schizophrenia, unspecified; Z90.89 Acquired absence of other organs; Z98.890 Other specified postprocedural states; Z88.6 Allergy status to analgesic agent; Z88.8 Allergy status to other drugs, medicaments and biological substances
CPT/HCPCS: 99281

== ENCOUNTER 2019-09-22 18:38 | Observation (INO) | payer OTHER ==
[~2019-09-22] VITALS: Ht 180.3 cm; Wt 63.7 kg
--- NOTE | 2019-09-22 19:06 | PHYS DOC ---
Past History Past Medical History: Anxiety, CAD, GERD, Hypothyroid, Schizophrenia Additional Past Medical Histor: Sqrdu-Dvzii-Stxnh Dz Past Surgical History: Tonsillectomy, Other Additional Past Surgical Histo: duodenal surg, hernia repair Smoking: Non-smoker Alcohol Use: None Drug Use: None Adult General Chief Complaint Chief Complaint: SHORTNESS OF BREATH.. " I ve been short of breath today... and some coughing... not my usual...".." My chest is heavy.... ".. "Can't get breath... " "The voices told me... I needed to come in...".." I don't feel well ... all over... I am not right... " HPI HPI Patient is a 54 year old male who presents with above hx and complaints of dyspnea, chest heaviness, generalized malaise and myalgia. Patient states symptoms present tonight. Patient does have history of previous coronary artery disease.-elevated trop. Patient denies any travel or specific ill contacts. Patient does not do flu vaccinations. Patient well-known to the emergency department for his schizophrenic disorder. Patient advised he has been taking his Abilify injection once a month which is due October 11. [facility] and Dr. Walls. Pt. currently has apartment behind [facility]. Patient has history chronic anemia, GI bleeds, Ydoee-pskoq-Sdoig Dz. Schizophrenic with persistent hallucinations of voices. Usually voices are three different females. Patient does not smoke or use illicit drugs. Does have a history of noncompliance with medical regimens particularly his psychiatric meds. Review of Systems Review of Systems Constitutional: Denies fever or chills [] Eyes: Denies change in visual acuity, redness, or eye pain [] HENT: Denies nasal congestion or sore throat [] Respiratory: Complaints of cough and shortness of breath [] Cardiovascular: No additional information not addressed in HPI [] GI: Denies abdominal pain, nausea, vomiting, bloody stools or diarrhea [] : Denies dysuria or hematuria [] Musculoskeletal: Denies back pain or joint pain [] Integument: Denies rash or skin lesions [] Neurologic: Denies headache, focal weakness or sensory changes [] Endocrine: Denies polyuria or polydipsia [] All other systems were reviewed and found to be within normal limits, except as documented in this note. Family History Family History Currently patient refused family history Current Medications Current Medications See nursing for home meds Allergies Allergies Allergies Coded Allergies Type Severity Reaction Last Updated Verified aspirin Allergy Intermediate bleeding 11/26/18 Yes I S O L A T I O N *CONTACT* Allergy Unknown 04/10/18 Yes Physical Exam Physical Exam Constitutional: Moderate acute distress, non-toxic appearance. [] HENT: Normocephalic, atraumatic, bilateral external ears normal, oropharynx moist, no oral exudates, nose normal. Lip lesions Eyes: PERRLA, EOMI, conjunctiva pale, no discharge. [] Neck: Normal range of motion, no tenderness, supple, no stridor. [] Cardiovascular:Heart rate regular rhythm, no murmur [] Lungs & Thorax: Bilateral breath sounds equal apexes and a few scattered wheezes on auscultation [] Abdomen: Bowel sounds normal, soft, no tenderness, no masses, no pulsatile masses. Old surgical scars. Patient declines rectal exam but states he has not had any dark or tarry stools. Skin: Warm, dry, no erythema, no rash. Pale Back: No tenderness, no CVA tenderness. [] Extremities: No tenderness, no cyanosis, no clubbing, ROM intact, no edema. [] Neurologic: Alert and oriented X 3, normal motor function, normal sensory function, no focal deficits noted. [] Psychologic: Affect flat, judgement normal, mood normal. []States the voices making him come to the emergency department. No suicidal or homicidal ideation Current Patient Data Vital Signs Vital Signs Date Time Temp Pulse Resp B/P (MAP) Pulse Ox O2 Delivery O2 Flow Rate FiO2 09/22/19 18:47 98.4 84 18 133/74 (93) 95 Room Air EKG EKG My interpretation EKG shows a sinus rhythm at 81 bpm. No findings acute STEMI of contralateral changes[] Radiology/Procedures Radiology/Procedures [][address] [address] IMAGING REPORT Signed PATIENT: BOLIVAR JEFF ACCOUNT: [id number] : 1965 LOCATION: ER AGE: 54 SEX: M EXAM STATUS: REG ER ORD. PHYSICIAN: KENDELL STEWART MD REASON: Chest pain, cough, congestion PROCEDURE: CHEST PA & LATERAL Two-view chest dated 09/22/2019. Comparison made 03/01/2019. CLINICAL INDICATION: Chest pain and cough and congestion. FINDINGS: PA and lateral views obtained. Heart and mediastinal contours are stable. Mild peribronchial thickening, unchanged from prior study. No consolidation or pleural effusion. No pneumothorax. IMPRESSION: No acute radiographic abnormality. Stable findings compared 03/01/2019. Electronically signed by: Grey Mathew MD (09/22/2019 7:41 PM) [id number] DICTATED AND SIGNED BY: GREY MATHEW MD DATE: 09/22/19 194 CC: KENDELL STEWART MD; CRISS WALLS MD ~ Course & Med Decision Making Course & Med Decision Making Pertinent Labs and Imaging studies reviewed. (See chart for details) Patient admitted to , with cardiology consult. Heart Scor= 3 Impression: 1. Anemia hemoglobin 7.8 with microcytic hypochromic indices 59MCV/MCH 27 2. Elevated Segs, dysmorphic cell structures-Ovocytes,Poikilocytes, Anisocytosis, Tear Drops- Chronic finding 3. Thrombocytosis 494 4. Chest pain 5. Viral syndrome 6. Schizophrenia auditory hallucinations 7. Dehydration 8. Hx. Njjqs-Xoqsm-Bdzuu Dz [] Dragon Disclaimer Dragon Disclaimer This electronic medical record was generated, in whole or in part, using a voice recognition dictation system. Departure Departure: Disposition: 01 HOME/RESIDENCE PRIOR TO ADM Condition: STABLE Referrals: CRISS WALLS MD (PCP) Dragon Disclaimer This chart was dictated in whole or in part using Voice Recognition software in a busy, high-work load, and often noisy Emergency Department environment. It may contain unintended and wholly unrecognized errors or omissions. Dragon Disclaimer This chart was dictated in whole or in part using Voice Recognition software in a busy, high-work load, and often noisy Emergency Department environment. It may contain unintended and wholly unrecognized errors or omissions. KENDELL STEWART MD Sep 22, 2019 19:05
[2019-09-22] MEDS ORDERED: IPRATRPIUM/ALBUTEROL 0.5/2.5MG 3 ML NEBU. NEB ONE ×2 (19:15)
[2019-09-22] MEDS ORDERED: predniSONE 10 MG TABLET PO ONE (19:15)
[2019-09-22 19:29] LABS: BASO % 1 % (0-3); EOS # 0.1 x10^3/uL (0.0-0.7); EOS % 2 % (0-3); HEMATOCRIT 29.1 % (39.0-53.0); HEMOGLOBIN 7.8 g/dL (13.0-17.5); LYMPH % 29 % (24-48); MEAN CORPUSCULAR HEMOGLOBIN 16 pg (25-35); MEAN CORPUSCULAR HGB CONC 27 g/dL (31-37); MEAN CORPUSCULAR VOLUME 59 fL (79-100); MONO # 0.4 x10^3/uL (0.0-1.1); MONO % 6 % (0-9); NEUT # 4.2 x10^3uL (1.8-7.7); NEUT % 63 % (31-73); PLATELET COUNT 494 x10^3/uL (140-400); RED BLOOD COUNT 4.97 x10^6/uL (4.30-5.70); RED CELL DISTRIBUTION WIDTH 21.7 % (11.5-14.5); WHITE BLOOD COUNT 6.7 x10^3/uL (4.0-11.0)
[2019-09-22 19:34] LABS: CALCIUM 8.4 mg/dL (8.5-10.1); CREATININE 1.2 mg/dL (0.7-1.3); GFR 63.6; POTASSIUM 4.5 mmol/L (3.5-5.1)
[2019-09-22 19:43] LABS: INFLUENZA A PATIENT NEGATIVE (NEGATIVE); INFLUENZA B PATIENT NEGATIVE (NEGATIVE)
--- NOTE | 2019-09-22 19:44 | RAD ---
Two-view chest dated 09/22/2019. Comparison made 03/01/2019. CLINICAL INDICATION: Chest pain and cough and congestion. FINDINGS: PA and lateral views obtained. Heart and mediastinal contours are stable. Mild peribronchial thickening, unchanged from prior study. No consolidation or pleural effusion. No pneumothorax. IMPRESSION: No acute radiographic abnormality. Stable findings compared 03/01/2019. Electronically signed by: Grey Lombardo MD (09/22/2019 7:41 PM) [id number]
[2019-09-22 19:46] LABS: DIRECT BILIRUBIN 0.2 mg/dL (0.0-0.2); MAGNESIUM 2.3 mg/dL (1.8-2.4); TOTAL BILIRUBIN 0.5 mg/dL (0.2-1.0); TOTAL PROTEIN 7.3 g/dL (6.4-8.2)
[2019-09-22 20:21] LABS: % EOS 2 % (0-5); % LYMPHS 12 % (24-48); % MONOS 3 % (0-10); % SEGS 83 % (35-66)
[2019-09-22 20:22] LABS: ANISOCYTOSIS MOD; HYPOCHROMIA MOD; PLT ESTIMATE INCREASED (ADEQUATE); POIKILOCYTOSIS MOD
[2019-09-22 20:23] LABS: MICROCYTOSIS MOD; OVALOCYTES MOD
[2019-09-22 20:24] LABS: TEAR DROP CELLS OCC
[2019-09-22 20:36] LABS: BARBITURATES NEG (NEG); BENZODIAZEPINES NEG (NEG); CANNABINOIDS NEG (NEG); COCAINE NEG (NEG); METHADONE NEG (NEG); OPIATES NEG (NEG); PHENCYCLIDINE NEG (NEG)
[2019-09-22 20:37] LABS: BILIRUBIN,URINE NEG (NEG); CLARITY,URINE CLEAR; COLOR,URINE YELLOW; GLUCOSE,URINE 500 mg/dL (NEG)
[2019-09-22 20:38] LABS: BACTERIA,URINE 0 /HPF (0-FEW); NITRITE,URINE NEG (NEG); RBC,URINE OCC /HPF (0-2); SQUAMOUS EPITHELIAL CELL,UR OCC /LPF; UROBILINOGEN,URINE 0.2 mg/dL (0.2 mg/dL); WBC,URINE OCC /HPF (0-4)
[2019-09-22 20:40] LABS: AMPHETAMINE/METHAMPHETAMINE NEG (NEG)
[2019-09-22] MEDS ORDERED: ONDANSETRON PF 4 MG/2 ML VIAL. IVP PRN (22:45)
[2019-09-22] MEDS ORDERED: ACETAMINOPHEN 325 MG TABLET PO PRN (22:45)
[2019-09-23] VITALS (9 sets, daily range): BP systolic 100–121; BP diastolic 55–76
[2019-09-23] MEDS: IV RINGERS SOLUTION,LACTATED 1,000 ML IV SCH ×5 (00:45→17:46)
--- NOTE | 2019-09-23 03:21 | EKG ---
[address] [address] Test Date: 2019-09-22 Test Time: 18:43:11 Pat Name: BOLIVAR JEFF Department: Room: [place] [address] Gender: M Busperson: : 1965 Requested By: JAMIE MARI Order Number: [id number] MD: Measurements Intervals [place] Rate: 81 P: 52 WV: 140 QRS: 59 QRSD: 80 T: 72 QT: 328 QTc: 386 Interpretive Statements SINUS RHYTHM NORMAL ECG RI6.01 No previous ECG available for comparison
[2019-09-23] MEDS: IPRATRPIUM/ALBUTEROL 0.5/2.5MG 3 ML NEBU. NEB SCH ×4 (04:49→21:02)
[2019-09-23 06:21] LABS: BASO % 0 % (0-3); EOS % 0 % (0-3); HEMATOCRIT 27.4 % (39.0-53.0); HEMOGLOBIN 7.4 g/dL (13.0-17.5); LYMPH # 0.2 x10^3/uL (1.0-4.8); LYMPH % 5 % (24-48); MEAN CORPUSCULAR HEMOGLOBIN 16 pg (25-35); MEAN CORPUSCULAR HGB CONC 27 g/dL (31-37); MEAN CORPUSCULAR VOLUME 58 fL (79-100); MONO # 0.1 x10^3/uL (0.0-1.1); MONO % 2 % (0-9); NEUT # 3.5 x10^3uL (1.8-7.7); NEUT % 93 % (31-73); PLATELET COUNT 418 x10^3/uL (140-400); RED BLOOD COUNT 4.68 x10^6/uL (4.30-5.70); RED CELL DISTRIBUTION WIDTH 21.3 % (11.5-14.5); WHITE BLOOD COUNT 3.8 x10^3/uL (4.0-11.0)
[2019-09-23 06:32] LABS: CALCIUM 8.2 mg/dL (8.5-10.1); CREATININE 0.9 mg/dL (0.7-1.3); GFR 88.6; POTASSIUM 4.2 mmol/L (3.5-5.1)
--- NOTE | 2019-09-23 08:51 | PDOC2 ---
SUKUMAR RUSSELL PATIENT TRANSPORTATION DRIVER 09/23/19 0851: CARDIAC CONSULT DATE OF CONSULT Date Of Consult DATE: 09/23/19 TIME: 08:37 REASON FOR CONSULT Reason for Consult Chest pain REFERRING PHYSICIAN Referring Physician Dr. Silva SOURCE Source: Chart review, Patient HPI History of Present Illness This is a 54 yo male who presented secondary to persistent cough and shortness of breath. Voices in his head told him to go to the ED for evaluation. When her arrived to the ED continued to cough and began having pressure in his central chest. Was worse with deep breath. No dizziness, diaphoresis, palpitations, or nausea/vomiting. Cough has improved and has had no further pain overnight, PAST MEDICAL HISTORY Past Medical History Osler Kern Rendu disease GI: GERD, GI bleed Heme/Onc: Other (DVT ) Psych: Depression, Schizophrenia Endocrine: Hypothyroidism PAST SURGICAL HISTORY Past Surgical History: Hernia Repair, Tonsillectomy FAMILY HISTORY Family History: Other (no pertinent history ) SOCIAL HISTORY Smoke: No ALCOHOL: none Drugs: None Lives: Roommate (independent living facility ) CURRENT MEDICATIONS Current Medications Current Medications Albuterol/ Ipratropium (Duoneb) 3 ml 1X ONCE NEB Last administered on 09/22/19at 19:21; Start 09/22/19 at 19:15; Stop 09/22/19 at 19:31; Status DC Prednisone (Prednisone) 50 mg 1X ONCE PO Last administered on 09/22/19at 19:15; Start 09/22/19 at 19:15; Stop 09/22/19 at 19:31; Status DC Albuterol/ Ipratropium (Duoneb) 3 ml 1X ONCE NEB Last administered on 09/22/19at 19:52; Start 09/22/19 at 19:15; Stop 09/22/19 at 19:31; Status DC Ondansetron HCl (Zofran) 4 mg PRN Q4HRS PRN IVP NAUSEA/VOMITING; Start 09/22/19 at 22:45; Stop 09/23/19 at 22:44 Acetaminophen (Tylenol) 650 mg PRN Q4HRS PRN PO FEVER; Start 09/22/19 at 22:45; Stop 09/23/19 at 22:44 Albuterol/ Ipratropium (Duoneb) 3 ml RTQID NEB Last administered on 09/23/19at 04:49; Start 09/23/19 at 08:00; Stop 09/24/19 at 07:59 Lactated Ringer's 1,000 ml @ 200 mls/hr Q5H IV Last administered on 09/23/19at 00:45; Start 09/22/19 at 22:45 Lorazepam (Ativan) 2 mg HS PO ; Start 09/23/19 at 21:00 Multivit/ Folic Acid/Iron (Multivitamin ) 1 tab DAILY PO ; Start 09/23/19 at 09:00 Ferrous Sulfate (Feosol) 325 mg DAILYWBKFT PO ; Start 09/23/19 at 08:00 Active Scripts Active Reported Abilify Maintena (Aripiprazole) 400 Mg Suser.vial 400 Mg IM QMONTH LAST DOSE GIVEN: DATE: TIME: NEXT DOSE DUE: DATE: TIME: ALLERGIES Allergies: Coded Allergies: aspirin (Verified Allergy, Intermediate, bleeding, 11/26/18) I S O L A T I O N *CONTACT* (Verified Allergy, Unknown, 04/10/18) MRSA foot wound ROS Review of Systems 14 point point ROS conducted with pertinent positives noted above in HPI PHYSICAL EXAM General: Alert, Oriented X3, Cooperative, No acute distress HEENT: Atraumatic Lungs: Clear to auscultation Heart: Regular rate Abdomen: No tenderness Extremities: No edema, Normal pulses Skin: No breakdown Neuro: Normal speech, Sensation intact Psych/Mental Status: Mood NL MUSCULOSKELETAL: Osteoarthritic changes both hands VITALS Vital Signs Vital Signs Date Time Temp Pulse Resp B/P (MAP) Pulse Ox O2 Delivery O2 Flow Rate FiO2 09/23/19 06:08 68 16 105/56 (72) 97 Room Air 09/23/19 05:00 97.8 LABS LABS Laboratory Tests Test 09/22/19 18:41 09/22/19 18:53 09/22/19 20:16 09/23/19 05:42 Influenza Type A (Rapid) Negative (NEGATIVE) Influenza Type B (Rapid) Negative (NEGATIVE) Group A Streptococcus Rapid Negative (NEGATIVE) White Blood Count 6.7 x10^3/uL (4.0-11.0) 3.8 x10^3/uL (4.0-11.0) Red Blood Count 4.97 x10^6/uL (4.30-5.70) 4.68 x10^6/uL (4.30-5.70) Hemoglobin 7.8 g/dL (13.0-17.5) 7.4 g/dL (13.0-17.5) Hematocrit 29.1 % (39.0-53.0) 27.4 % (39.0-53.0) Mean Corpuscular Volume 59 fL (79-100) 58 fL (79-100) Mean Corpuscular Hemoglobin 16 pg (25-35) 16 pg (25-35) Mean Corpuscular Hemoglobin Concent 27 g/dL (31-37) 27 g/dL (31-37) Red Cell Distribution Width 21.7 % (11.5-14.5) 21.3 % (11.5-14.5) Platelet Count 494 x10^3/uL (140-400) 418 x10^3/uL (140-400) Neutrophils (%) (Auto) 63 % (31-73) 93 % (31-73) Lymphocytes (%) (Auto) 29 % (24-48) 5 % (24-48) Monocytes (%) (Auto) 6 % (0-9) 2 % (0-9) Eosinophils (%) (Auto) 2 % (0-3) 0 % (0-3) Basophils (%) (Auto) 1 % (0-3) 0 % (0-3) Neutrophils # (Auto) 4.2 x10^3uL (1.8-7.7) 3.5 x10^3uL (1.8-7.7) Lymphocytes # (Auto) 2.0 x10^3/uL (1.0-4.8) 0.2 x10^3/uL (1.0-4.8) Monocytes # (Auto) 0.4 x10^3/uL (0.0-1.1) 0.1 x10^3/uL (0.0-1.1) Eosinophils # (Auto) 0.1 x10^3/uL (0.0-0.7) 0.0 x10^3/uL (0.0-0.7) Basophils # (Auto) 0.0 x10^3/uL (0.0-0.2) 0.0 x10^3/uL (0.0-0.2) Segmented Neutrophils % 83 % (35-66) Lymphocytes % 12 % (24-48) Monocytes % 3 % (0-10) Eosinophils % 2 % (0-5) Platelet Estimate Increased (ADEQUATE) Hypochromasia Mod Poikilocytosis Mod Anisocytosis Mod Microcytosis Mod Tear Drop Cells Occ Ovalocytes Mod Prothrombin Time 12.0 SEC (9.4-11.4) Prothromb Time International Ratio 1.2 (0.9-1.1) Activated Partial Thromboplast Time 26 SEC (23-33) D-Dimer (Jenn) 0.21 mg/L (0.00-0.50) Sodium Level 143 mmol/L (136-145) 139 mmol/L (136-145) Potassium Level 4.5 mmol/L (3.5-5.1) 4.2 mmol/L (3.5-5.1) Chloride Level 105 mmol/L (98-107) 105 mmol/L (98-107) Carbon Dioxide Level 28 mmol/L (21-32) 25 mmol/L (21-32) Anion Gap 10 (6-14) 9 (6-14) Blood Urea Nitrogen 28 mg/dL (8-26) 20 mg/dL (8-26) Creatinine 1.2 mg/dL (0.7-1.3) 0.9 mg/dL (0.7-1.3) Estimated GFR (Cockcroft-Gault) 63.6 88.6 Glucose Level 90 mg/dL (70-99) 171 mg/dL (70-99) Calcium Level 8.4 mg/dL (8.5-10.1) 8.2 mg/dL (8.5-10.1) Magnesium Level 2.3 mg/dL (1.8-2.4) Total Bilirubin 0.5 mg/dL (0.2-1.0) Direct Bilirubin 0.2 mg/dL (0.0-0.2) Aspartate Amino Transf (AST/SGOT) 13 U/L (15-37) Alanine Aminotransferase (ALT/SGPT) 18 U/L (16-63) Alkaline Phosphatase 100 U/L (46-116) Creatine Kinase 258 U/L (39-308) Troponin I Quantitative < 0.017 ng/mL (0-0.055) NZ-Reo-I-Type Natriuretic Peptide 60 pg/mL (0-124) Total Protein 7.3 g/dL (6.4-8.2) Albumin 4.0 g/dL (3.4-5.0) Lipase 203 U/L (73-393) Urine Collection Type Unknown Urine Color Yellow Urine Clarity Clear Urine pH 6.0 Urine Specific [place] 1.025 Urine Protein Neg (NEG-TRACE) Urine Glucose (UA) 500 mg/dL (NEG) Urine Ketones (Stick) Neg mg/dL (NEG) Urine Blood Trace (NEG) Urine Nitrite Neg (NEG) Urine Bilirubin Neg (NEG) Urine Urobilinogen Dipstick 0.2 mg/dL (0.2 mg/dL) Urine Leukocyte Esterase Neg (NEG) Urine RBC Occ /HPF (0-2) Urine WBC Occ /HPF (0-4) Urine Squamous Epithelial Cells Occ /LPF Urine Bacteria 0 /HPF (0-FEW) Urine Opiates Screen Neg (NEG) Urine Methadone Screen Neg (NEG) Urine Barbiturates Neg (NEG) Urine Phencyclidine Screen Neg (NEG) Urine Amphetamine/Methamphetamine Neg (NEG) Urine Benzodiazepines Screen Neg (NEG) Urine Cocaine Screen Neg (NEG) Urine Cannabinoids Screen Neg (NEG) Urine Ethyl Alcohol Neg (NEG) ASSESSMENT/PLAN Assessment/Plan 1. Chest pain, atypical. Initial trop negative. EKG without significant acute changes 2. Anemia; stable 3. Yllrt-xaumo-Mdrdm Dz with recurrent GI bleed 4. Hypothyroidism 5. Schizophrenia Recommendations Trend troponin Lipids Will hold off on ASA due to anemia and h/o recurrent GI bleed Could consider outpatient echo. IVC GONZÁLES MD 09/24/19 1046: CARDIAC CONSULT ASSESSMENT/PLAN Assessment/Plan Patient seen and examined on 09/23/19. Chest discomfort. Atypical. Significantly improved. No acute ischemic EKG changes. Initial troponin normal. We'll continue present treatments and trend tr oponin. Chronic anemia. Vokpe-Hbghs-Grgea reported history with recurrent GI bleeding with H&H stable. Continue present treatment. Uncertain cholesterol panel. We'll check lipid panel. Schizophrenia. Continue present medications. Thank you for allowing us to participate in the care of your patient. SUKUMAR RUSSELL ADAN Sep 23, 2019 08:51 VIC GONZÁLES MD Sep 24, 2019 10:46
[2019-09-23] MEDS: PRENATAL MULTIVITAMIN TABLET. PO SCH (10:04)
[2019-09-23] MEDS: FERROUS SULFATE 325 MG TABLET. PO SCH (10:04)
[2019-09-23] MEDS ORDERED: IRON SUCROSE COMPLEX 200 MG in IV NORMAL SALINE 100ML 100 ML IV ONE (17:30)
--- NOTE | 2019-09-23 18:09 | HP ---
ADMIT DATE: 09/22/2019 HISTORY OF PRESENT ILLNESS: The patient is a 55-year-old male patient who came to the Emergency Room complaining of shortness of breath, has cough, which is mostly dry as well as some described chest heaviness and his voices told him to come to the Emergency Room for evaluation. He was extensively investigated in the Emergency Room, has had an EKG, which showed that he was in sinus rhythm at a rate of 81 beats per minute with no evidence of acute ST segment elevation myocardial infarction. His chest x-ray showed no acute radiographic abnormality, stable finding compared to another x-ray done on 03/01/2019. His lab work showed that his first set of cardiac enzymes were less than 0.017, however, his chemistry was unremarkable. He continued to have severe microcytic hypochromic anemia with a hemoglobin of 7.8, hematocrit 29, MCV of 59 and therefore, the patient was admitted to do 2 more sets of cardiac enzyme and to consult the Cardiology Team. PAST MEDICAL HISTORY: Significant for chronic schizophrenia. He is also known to have Lwvgr-Boxyg-Crhmc disease with recurrent GI bleed. He has microcytic hypochromic anemia, thrombocytosis and ovalocytosis. He is also known to have hypothyroidism as well as Raynaud's phenomenon. PAST SURGICAL HISTORY: Significant for tonsillectomy, periumbilical hernia repair, teeth extraction, esophagogastroduodenoscopy and colonoscopy. ALLERGIES: HE IS ALLERGIC TO ASPIRIN HE BLEEDS. MEDICATIONS: He is on Abilify injection once a month. He does not take any other medication by mouth. FAMILY HISTORY: He has 2 brothers, 1 older and 1 younger. His voices tell him when to talk to them and when not talk to them. According to him, he has not seen his father since 1985. His mother at age of 66 because of diverticulitis. SOCIAL HISTORY: He is single, has no children, has never . He does not smoke, drink alcohol or use any recreational drugs. He is on disability. REVIEW OF SYSTEMS: As per history of present illness. PHYSICAL EXAMINATION: GENERAL: On arrival to the Emergency Room, he looked well and was clearly in no apparent respiratory distress, pale, but no jaundice, cyanosis or thyromegaly. No jugular venous distention. No limb edema. VITAL SIGNS: His heart rate was 68, blood pressure 105/56, temperature was 97.8, respiratory rate was 16, and oxygen saturation was 97% on room air. HEAD, EYES, EARS, NOSE AND THROAT: Showed normocephalic, atraumatic. NECK: Supple. HEART: Showed normal first and second heart sounds with no gallop, rub or murmur. CHEST: Clear to auscultation. No crepitation or rhonchi. ABDOMEN: Distended, soft, nontender. NEUROLOGIC: He is awake, alert, without any obvious lateralizing sign. LABORATORY DATA: On admission showed a white cell count of 6700, hemoglobin was 7.8, hematocrit 29, MCV 59 and platelet count of 494,000. His chemistry showed that his serum sodium 143, potassium 4.5, chloride 105, bicarbonate 28, anion gap of 10, BUN 28, creatinine 1.2, estimated GFR was 64 mL per minute. His calcium was 8.4, magnesium 2.3. Total bilirubin, AST, ALT, alkaline phosphatase were normal. Total protein was 7.3, albumin was 4. His prothrombin time, INR, aPTT and D-dimer are all normal. Urinalysis was essentially unremarkable. Toxic screen was negative and his influenza A and B were negative. PLAN: The patient was admitted to do 2 more sets of cardiac enzyme, consult the Cardiology team and to decide the further management accordingly. LEONA BOSCH MD DR: MAYITO/jyoti JOB#: [id number] / [id number]
[2019-09-23] MEDS ORDERED: LORazepam 1 MG TABLET PO SCH (21:00)
[2019-09-24] MEDS: IPRATRPIUM/ALBUTEROL 0.5/2.5MG 3 ML NEBU. NEB SCH (04:44)
[2019-09-24 06:24] VITALS: BP 102/62
[2019-09-24 10:28] LABS: CALCIUM 8.8 mg/dL (8.5-10.1); CREATININE 1.1 mg/dL (0.7-1.3); GFR 70.3
[2019-09-24 10:36] LABS: HEMATOCRIT 31.7 % (39.0-53.0); HEMOGLOBIN 8.6 g/dL (13.0-17.5); RED BLOOD COUNT 5.41 x10^6/uL (4.30-5.70); RED CELL DISTRIBUTION WIDTH 21.7 % (11.5-14.5)
--- NOTE | 2019-09-24 10:53 | PDOC ---
SUBJECTIVE: Patient seen and examined OBJECTIVE: Vital Signs/I&O: Vital Signs Date Time Temp Pulse Resp B/P (MAP) Pulse Ox O2 Delivery O2 Flow Rate FiO2 09/24/19 06:24 97.7 0 20 102/62 (75) 100 Room Air I & O 09/23/19 09/23/19 09/24/19 15:00 23:00 07:00 Intake Total 480 ml 654 ml 300 ml Output Total 500 ml Balance -20 ml 654 ml 300 ml Labs: Laboratory Tests Test 09/24/19 10:02 White Blood Count 7.0 x10^3/uL (4.0-11.0) Red Blood Count 5.41 x10^6/uL (4.30-5.70) Hemoglobin 8.6 g/dL (13.0-17.5) L Hematocrit 31.7 % (39.0-53.0) L Mean Corpuscular Volume 59 fL (79-100) L Mean Corpuscular Hemoglobin 16 pg (25-35) L Mean Corpuscular Hemoglobin Concent 27 g/dL (31-37) L Red Cell Distribution Width 21.7 % (11.5-14.5) H Platelet Count 471 x10^3/uL (140-400) H Sodium Level 141 mmol/L (136-145) Potassium Level 4.0 mmol/L (3.5-5.1) Chloride Level 106 mmol/L (98-107) Carbon Dioxide Level 27 mmol/L (21-32) Anion Gap 8 (6-14) Blood Urea Nitrogen 17 mg/dL (8-26) Creatinine 1.1 mg/dL (0.7-1.3) Estimated GFR (Cockcroft-Gault) 70.3 Glucose Level 93 mg/dL (70-99) Calcium Level 8.8 mg/dL (8.5-10.1) Physical Exam: Chest is clear to auscultation and percussion. CV is regular rate and rhythm. Abdomen is soft. ASSESSMENT: Chest discomfort. Atypical. Resolved. No acute ischemic EKG changes. Troponin normal 2. Would continue present medical treatment. Chronic anemia. H/H 8.6 /31.7 Bslxo-Ozocc-Dhiqe reported history with recurrent GI bleeding with H&H stable. Continue present treatment. Uncertain cholesterol panel. We'll check lipid panel. Schizophrenia. Continue present medications. PLAN: As above. VIC GONZÁLES MD Sep 24, 2019 10:53
[2019-09-24 11:42] VITALS: BP 111/67
[2019-09-24] MEDS: PRENATAL MULTIVITAMIN TABLET. PO SCH (11:46)
[2019-09-24] MEDS: FERROUS SULFATE 325 MG TABLET. PO SCH (11:46)
[2019-09-24] MEDS ORDERED: IRON SUCROSE COMPLEX 500 MG in IV NORMAL SALINE 250ML 250 ML IV ONE ×2 (13:00→17:30)
[2019-09-24 15:00] VITALS: BP 115/74
--- NOTE | 2019-09-24 17:06 | DS ---
DATE OF DISCHARGE: HOSPITAL COURSE: The patient is a 54-year-old male patient who came to the Emergency Room complaining of shortness of breath, has cough which is mostly dry as well as some chest heaviness. His voices told him to come to the Emergency Room for evaluation. He was extensively investigated in the Emergency Room. His EKG showed that he was in sinus rhythm at a rate of 81 beats per minute with no evidence of any acute ST segment elevation myocardial infarction. Chest x-ray was unremarkable. His labs showed that first cardiac enzyme was only less than 0.017; however, his chemistry was unremarkable. He continued to have severe microcytic hypochromic anemia with hemoglobin of 7.8, hematocrit 29 and MCV of 59 and therefore, he was admitted and has 2 more sets of cardiac enzymes that were unremarkable and ruled out acute myocardial infarction given that he has hereditary hemorrhagic telangiectasia and severe iron deficiency anemia. I did actually treat him with IV Venofer and once stabilized, the decision was made to discharge him home as his voices did not allow him to take any medication by mouth. He only takes his Abilify intramuscular every 4 weeks. PHYSICAL EXAMINATION: GENERAL: When I saw him today, he looked well and was clearly in no apparent respiratory distress. No pallor, jaundice, cyanosis or thyromegaly. No jugular venous distention. No lower limb edema. VITAL SIGNS: His heart rate was 72, blood pressure was 111/67, temperature was 97.6, respiratory rate was 18, and oxygen saturation was 100%. HEAD, EYES, EARS, NOSE AND THROAT: Showed normocephalic, atraumatic. NECK: Supple. HEART: Showed normal first and second heart sounds. No gallop or murmur. CHEST: Clear to auscultation. No crepitation or rhonchi. ABDOMEN: Distended, soft, nontender. No guarding or rigidity. No organomegaly. All hernial orifices intact. Bowel sounds normal. NEUROLOGIC: He was awake, alert, responding appropriately. He ambulates without assistance or assistive devices. LABORATORY DATA: His lab work this morning showed a white cell count 7000, hemoglobin 8.6, hematocrit 31.7, MCV 59 and platelet count of 471,000. Serum sodium was 141, potassium 4, chloride 106, bicarbonate 27, anion gap of 8, BUN 17, creatinine 1.1, estimated GFR was 70 mL per minute. His glucose was 93 and calcium was 8.8. His serum triglycerides were 26, total cholesterol was 90, LDL was 44, VLDL was 5 and HDL cholesterol was 41. His TSH was slightly elevated at 4.341. DISCHARGE MEDICATIONS: The patient was discharged home to continue on his Abilify 400 mg intramuscular once a month for schizophrenia. FINAL DISCHARGE DIAGNOSES: Chest pain, atypical, acute myocardial infarction ruled out. He has hereditary hemorrhagic telangiectasia with severe microcytic hypochromic anemia, hypothyroidism, and schizophrenia. LEONA BOSCH MD DR: MAYITO/jyoti JOB#: [id number] / [id number]
== END 2019-09-24 18:50 | disposition home or self-care (01) ==
LOC: ER 18:38 → ICU 20:30 → INTOOBSV 20:30 → UNDOADMIN 09-23 00:40 → ICU 09-23 00:40 → 1 SOUTH 09-23 19:13
PROVIDERS: ADMIT Hospitalist; ATTEND Hospitalist
DX: R07.89 Other chest pain (principal); B34.9 Viral infection, unspecified; D50.9 Iron deficiency anemia, unspecified; E03.9 Hypothyroidism, unspecified; E86.0 Dehydration; F20.9 Schizophrenia, unspecified; I25.10 Atherosclerotic heart disease of native coronary artery without angina pectoris; I73.00 Raynaud's syndrome without gangrene; I78.0 Hereditary hemorrhagic telangiectasia; K92.2 Gastrointestinal hemorrhage, unspecified; Z91.19 Patient's noncompliance with other medical treatment and regimen
CPT/HCPCS: 36415; 71046; 80048; 80061; 80076; 80307; 81001; 82550; 83690; 83735; 83880; 84443; 84484; 85007; 85025; 85027; 85379; 85610; 85730; 86850; 86900; 86901; 87070; 87804; 87880; 93005; 94640; 96361; 96365; 96366; 99285; G0238; G0378; J1756; J7050; J7120; J7512; G0379

== ENCOUNTER 2019-10-21 19:05 | Emergency (ER) | payer OTHER ==
[~2019-10-21] VITALS: Ht 180.3 cm; Wt 68.8 kg
[2019-10-21 19:05] VITALS: BP 132/72
--- NOTE | 2019-10-21 20:05 | PHYS DOC ---
Past History Past Medical History: Anxiety, CAD, GERD, Hypothyroid, Schizophrenia Additional Past Medical Histor: [id number] Dz Past Surgical History: Tonsillectomy, Other Additional Past Surgical Histo: duodenal surg, hernia repair Smoking: Non-smoker Alcohol Use: None Drug Use: None General Adult EDM: Chief Complaint: FOOT INJURY PAIN HPI: HPI: 54-year-old male presents via EMS. The patient is well-known to the emergency room. He comes in tonight with left ankle pain. He has 3 abrasions on the medial side of his left ankle. He tells me they've been there for over a week. It just seemed to be hurting more today. The patient does walk a lot. He does not know how he got these abrasions. He denies falls or trauma. He denies fever or chills. The patient has a history of homelessness, but tells me that he is in an apartment at this time. He has no other complaints at this time. Review of Systems: Review of Systems: Constitutional: Denies fever or chills Eyes: Denies change in visual acuity HENT: Denies nasal congestion or sore throat Respiratory: Denies cough or shortness of breath Cardiovascular: Denies chest pain or edema GI: Denies abdominal pain, nausea, vomiting, bloody stools or diarrhea : Denies dysuria Musculoskeletal: Denies back pain or joint pain Integument: Abrasions left ankle, dry skin in general Neurologic: Denies headache, focal weakness or sensory changes Endocrine: Denies polyuria or polydipsia Lymphatic: Denies swollen glands Psychiatric: Denies depression or anxiety Heart Score: Risk Factors: Risk Factors: DM, Current or recent (<one month) smoker, HTN, HLP, family history of CAD, obesity. Risk Scores: Score 0 - 3: 2.5% MACE over next 6 weeks - Discharge Home Score 4 - 6: 20.3% MACE over next 6 weeks - Admit for Clinical Observation Score 7 - 10: 72.7% MACE over next 6 weeks - Early Invasive Strategies Allergies: Allergies: Allergies Coded Allergies Type Severity Reaction Last Updated Verified aspirin Allergy Intermediate bleeding 11/26/18 Yes I S O L A T I O N *CONTACT* Allergy Unknown 04/10/18 Yes Physical Exam: PE: Constitutional: Well developed, well nourished, no acute distress, non-toxic appearance. [] HENT: Normocephalic, atraumatic, bilateral external ears normal, oropharynx moist, no oral exudates, nose normal. [] Eyes: PERRLA, EOMI, conjunctiva normal, no discharge. [] Neck: Normal range of motion, no tenderness, supple, no stridor. [] Cardiovascular:Heart rate regular rhythm, no murmur [] Lungs & Thorax: Bilateral breath sounds clear to auscultation [] Abdomen: Bowel sounds normal, soft, no tenderness, no masses, no pulsatile masses. [] Skin: Dry skin of the bilateral hands, healing abrasions of the left medial ankle, no warmth, mild erythema. Does not appear infected. Mild tenderness to palpation.[] Back: No tenderness, no CVA tenderness. [] Extremities: No tenderness, no cyanosis, no clubbing, ROM intact, no edema. [] Neurologic: Alert and oriented X 3, normal motor function, normal sensory function, no focal deficits noted. [] Psychologic: Affect normal, judgement normal, mood normal. [] Current Patient Data: Vital Signs: Vital Signs Date Time Temp Pulse Resp B/P (MAP) Pulse Ox O2 Delivery O2 Flow Rate FiO2 10/21/19 19:05 98.0 75 16 132/72 (92) 100 Room Air EKG: EKG: [] Radiology/Procedures: Radiology/Procedures: [] Course & Med Decision Making: Course & Med Decision Making Pertinent Labs and Imaging studies reviewed. (See chart for details) Patient's abrasions seem to be healing well. He has some mild swelling which I think is consistent with skin trauma and healing. I will give him a naproxen in the ER. He is stable for discharge at this time. [] Dragon Disclaimer: Dragon Disclaimer: This electronic medical record was generated, in whole or in part, using a voice recognition dictation system. Departure Departure: Impression: Primary Impression: Abrasion, left ankle, initial encounter Disposition: 01 HOME, SELF-CARE Condition: STABLE Referrals: CRISS POWER MD (PCP) Patient Instructions: Jaylene, Zsns-[id number] DONTAE MCLEAN DO Oct 21, 2019 20:05
[2019-10-21] MEDS: NAPROXEN 500 MG TABLET PO ONE (20:16)
== END 2019-10-21 20:20 | disposition home or self-care (01) ==
LOC: ER 19:05
DX: S90.512A Abrasion, left ankle, initial encounter (principal); I25.10 Atherosclerotic heart disease of native coronary artery without angina pectoris; K21.9 Gastro-esophageal reflux disease without esophagitis; E03.9 Hypothyroidism, unspecified; Z88.6 Allergy status to analgesic agent; Z91.041 Radiographic dye allergy status; X83.8XXA Intentional self-harm by other specified means, initial encounter; Y93.89 Activity, other specified; Y92.89 Other specified places as the place of occurrence of the external cause; Y99.8 Other external cause status
CPT/HCPCS: 99283

== ENCOUNTER 2019-11-17 05:45 | Emergency (ER) | payer OTHER ==
[~2019-11-17] VITALS: Ht 180.3 cm; Wt 68.8 kg
[2019-11-17 05:45] VITALS: BP 108/56
--- NOTE | 2019-11-17 06:07 | RAD ---
3 views left ankle HISTORY: Pain for 2 days AP lateral oblique views The visualized osseous structures appear grossly intact. The tibiotalar relationship is normal. There is soft tissue swelling over the medial malleolus. IMPRESSION: Soft tissue swelling over the medial malleolus could be secondary to ligamentous injury. There is no evidence of fracture or dislocation. Electronically signed by: Hardeep Sin III, MD (11/17/2019 6:04 AM) [id number]
--- NOTE | 2019-11-17 06:14 | PHYS DOC ---
Past History Past Medical History: Anxiety, CAD, GERD, Hypothyroid, Schizophrenia Additional Past Medical Histor: [id number] Dz Past Surgical History: Tonsillectomy, Other Additional Past Surgical Histo: duodenal surg, hernia repair Smoking: Non-smoker Alcohol Use: None Drug Use: None General Adult EDM: Chief Complaint: ANKLE PROBLEM HPI: HPI: Patient is a 54-year-old male who presents to the emergency department for evaluation of atraumatic left ankle pain, which began yesterday. He denies any injuries, has not had any fevers or chills. He is able to ambulate, and experiences full range of motion in his ankle and digits. He denies any numbness, weakness, fevers, chills, or skin rashes. There are no alleviating or exacerbating factors to his symptoms except that palpation of his ankle seems to worsen his pain. Review of Systems: Review of Systems: Constitutional: Denies fever or chills Eyes: Denies change in visual acuity HENT: Denies nasal congestion or sore throat Respiratory: Denies cough or shortness of breath Cardiovascular: Denies chest pain or edema : Denies dysuria Musculoskeletal: Denies back pain or joint pain, other than the right ankle Integument: Denies rash Neurologic: Denies headache, focal weakness or sensory changes Endocrine: Denies polyuria or polydipsia Lymphatic: Denies swollen glands Psychiatric: Denies depression or anxiety Heart Score: Risk Factors: Risk Factors: DM, Current or recent (<one month) smoker, HTN, HLP, family history of CAD, obesity. Risk Scores: Score 0 - 3: 2.5% MACE over next 6 weeks - Discharge Home Score 4 - 6: 20.3% MACE over next 6 weeks - Admit for Clinical Observation Score 7 - 10: 72.7% MACE over next 6 weeks - Early Invasive Strategies Allergies: Allergies: Allergies Coded Allergies Type Severity Reaction Last Updated Verified aspirin Allergy Intermediate bleeding 11/26/18 Yes I S O L A T I O N *CONTACT* Allergy Unknown 04/10/18 Yes Physical Exam: PE: PHYSICAL EXAM: HEENT: Atruamatic NECK: Supple, normal ROM, non-tender. CARDIAC: Regular Rate and Rhythm LUNGS: Clear Bilaterally EXTREMITIES: There is mild tenderness to palpation along the medial aspect of the right ankle, without any warmth, or erythema. There are healing scabs present on the ankle and foot, without any new or open wounds. The skin itself is not tender to touch. Distal PMS is intact. The patient is able to ambulate fully on his left ankle. The remainder the extremities are atraumatic and unremarkable, with no focal tenderness to palpation. There is no calf TTP. Current Patient Data: Vital Signs: Vital Signs Date Time Temp Pulse Resp B/P (MAP) Pulse Ox O2 Delivery O2 Flow Rate FiO2 11/17/19 05:45 97.7 74 16 108/56 (73) 99 Room Air EKG: EKG: [] Radiology/Procedures: Radiology/Procedures: PROCEDURE: ANKLE LEFT 3V 3 views left ankle HISTORY: Pain for 2 days AP lateral oblique views The visualized osseous structures appear grossly intact. The tibiotalar relationship is normal. There is soft tissue swelling over the medial malleolus. IMPRESSION: Soft tissue swelling over the medial malleolus could be secondary to ligamentous injury. There is no evidence of fracture or dislocation.[] Course & Med Decision Making: Course & Med Decision Making Pertinent Imaging studies reviewed. (See chart for details) [] Patient remains stable. I discussed test results, the need for close follow- up, and return precautions. Dragon Disclaimer: Dragon Disclaimer: This electronic medical record was generated, in whole or in part, using a voice recognition dictation system. Departure Departure: Impression: Primary Impression: Ankle pain Disposition: 01 HOME, SELF-CARE Condition: STABLE Referrals: CRISS POWER MD (PCP) Patient Instructions: Ankle Pain, Ankle Sprain Additional Instructions: Ibuprofen 400-600 mg every 6 hours may help improve your symptoms. Applying ice to the affected area may help improve your symptoms. Return to medical care for any new or worsening symptoms, increasing pain, fever, rashes, numbness, weakness, or any other new or concerning symptoms. RUIZ SEAY MD November 17, 2019 06:14
== END 2019-11-17 06:32 | disposition home or self-care (01) ==
LOC: ER 05:45
DX: M25.572 Pain in left ankle and joints of left foot (principal); I25.10 Atherosclerotic heart disease of native coronary artery without angina pectoris; K21.9 Gastro-esophageal reflux disease without esophagitis; E03.9 Hypothyroidism, unspecified; F20.9 Schizophrenia, unspecified; Z88.6 Allergy status to analgesic agent; Z91.041 Radiographic dye allergy status
CPT/HCPCS: 73610; 99283

== ENCOUNTER 2019-11-27 16:40 | Emergency (ER) | payer OTHER ==
[~2019-11-27] VITALS: Ht 180.3 cm; Wt 68.8 kg
[2019-11-27] MEDS ORDERED: IV NORMAL SALINE 1,000ML 1,000 ML IV ONE (17:00)
--- NOTE | 2019-11-27 17:16 | PHYS DOC ---
Past History Past Medical History: Anxiety, CAD, GERD, Hypothyroid, Schizophrenia Additional Past Medical Histor: [id number]-Fsztb Dz Past Surgical History: Tonsillectomy, Other Additional Past Surgical Histo: duodenal surg, hernia repair Smoking: Non-smoker Alcohol Use: None Drug Use: None General Adult EDM: Chief Complaint: RECTAL BLEED HPI: HPI: 54-year-old male presents with concern about rectal bleeding. Patient had a small amount of bright red blood on his toilet paper 1 time today. The patient has also been feeling more fatigued and is concerned that he might be getting anemic. He has had anemia in the past. The patient is well-known to the emergency room. He denies any pain. He has not had a fever. He denies any other symptoms at this time. Review of Systems: Review of Systems: Constitutional: Denies fever or chills Eyes: Denies change in visual acuity HENT: Denies nasal congestion or sore throat Respiratory: Denies cough or shortness of breath Cardiovascular: Denies chest pain or edema GI: Rectal bleeding. Denies abdominal pain, nausea, vomiting. : Denies dysuria Musculoskeletal: Denies back pain or joint pain Integument: Denies rash Neurologic: Denies headache, focal weakness or sensory changes Endocrine: Denies polyuria or polydipsia Lymphatic: Denies swollen glands Psychiatric: Denies depression or anxiety Heart Score: Risk Factors: Risk Factors: DM, Current or recent (<one month) smoker, HTN, HLP, family history of CAD, obesity. Risk Scores: Score 0 - 3: 2.5% MACE over next 6 weeks - Discharge Home Score 4 - 6: 20.3% MACE over next 6 weeks - Admit for Clinical Observation Score 7 - 10: 72.7% MACE over next 6 weeks - Early Invasive Strategies Current Medications: Current Meds: Current Medications Medications (Trade) Dose Ordered Sig/Tomasz Start Time Stop Time Status Last Admin Dose Admin Sodium Chloride 1,000 ml @ 1,000 mls/hr 1X ONCE 11/27/19 17:00 11/27/19 17:59 Allergies: Allergies: Allergies Coded Allergies Type Severity Reaction Last Updated Verified aspirin Allergy Intermediate bleeding 11/26/18 Yes I S O L A T I O N *CONTACT* Allergy Unknown 04/10/18 Yes Physical Exam: PE: Constitutional: Well developed, well nourished, no acute distress, non-toxic appearance. [] HENT: Normocephalic, atraumatic, bilateral external ears normal, oropharynx moist, no oral exudates, nose normal. [] Eyes: PERRLA, EOMI, conjunctiva normal, no discharge. [] Neck: Normal range of motion, no tenderness, supple, no stridor. [] Cardiovascular: Heart rate regular rhythm, no murmur [] Lungs & Thorax: Bilateral breath sounds clear to auscultation [] Abdomen: Bowel sounds normal, soft, no tenderness, no masses, no pulsatile masses. [] Skin: Warm, dry, no erythema, no rash. [] Back: No tenderness, no CVA tenderness. [] Extremities: No tenderness, no cyanosis, no clubbing, ROM intact, no edema. [] Neurologic: Alert and oriented X 3, normal motor function, normal sensory function, no focal deficits noted. [] Psychologic: Affect normal, judgement normal, mood normal. [] Current Patient Data: Vital Signs: Vital Signs Date Time Temp Pulse Resp B/P (MAP) Pulse Ox O2 Delivery O2 Flow Rate FiO2 11/27/19 16:40 98.1 68 18 124/76 (92) 100 Room Air EKG: EKG: [] Radiology/Procedures: Radiology/Procedures: [] Course & Med Decision Making: Course & Med Decision Making Pertinent Labs and Imaging studies reviewed. (See chart for details) The patient's labs are unremarkable except for his hemoglobin of 10.6. This is actually significantly improved from his most recent hemoglobin in our records. I have advised the patient to continue to pay attention to the bleeding, and that it will likely self resolve. If he has significantly more bleeding or more symptoms develop, he will return the emergency room. He is stable for d ischarge at this time. [] Dragon Disclaimer: Dragon Disclaimer: This electronic medical record was generated, in whole or in part, using a voice recognition dictation system. Departure Departure: Impression: Primary Impression: Rectal bleed Disposition: 01 HOME/RESIDENCE PRIOR TO ADM Condition: STABLE Referrals: CRISS POWER MD (PCP) Patient Instructions: Rectal Bleeding, [id number] DONTAE MCLEAN DO November 27, 2019 17:16
[2019-11-27 17:26] LABS: BASO # 0.1 x10^3/uL (0.0-0.2); BASO % 1 % (0-3); EOS # 0.2 x10^3/uL (0.0-0.7); EOS % 3 % (0-3); HEMATOCRIT 36.3 % (39.0-53.0); HEMOGLOBIN 10.6 g/dL (13.0-17.5); LYMPH # 1.5 x10^3/uL (1.0-4.8); LYMPH % 21 % (24-48); MEAN CORPUSCULAR HEMOGLOBIN 20 pg (25-35); MEAN CORPUSCULAR HGB CONC 29 g/dL (31-37); MEAN CORPUSCULAR VOLUME 69 fL (79-100); MONO # 0.4 x10^3/uL (0.0-1.1); MONO % 5 % (0-9); NEUT # 4.9 x10^3uL (1.8-7.7); NEUT % 69 % (31-73); PLATELET COUNT 439 x10^3/uL (140-400); RED BLOOD COUNT 5.27 x10^6/uL (4.30-5.70)
[2019-11-27 17:30] LABS: CALCIUM 9.2 mg/dL (8.5-10.1); CREATININE 0.9 mg/dL (0.7-1.3); GFR 88.6; POTASSIUM 4.5 mmol/L (3.5-5.1)
[2019-11-27 17:36] LABS: ALBUMIN 4.2 g/dL (3.4-5.0); ALBUMIN/GLOBULIN RATIO 1.2 (1.0-1.7); TOTAL BILIRUBIN 0.3 mg/dL (0.2-1.0); TOTAL PROTEIN 7.6 g/dL (6.4-8.2)
[2019-11-27 17:45] VITALS: BP 126/72
[2019-11-27 18:26] LABS: % ATYL 1 % (0-0); % BANDS 2 % (0-9); % BASOS 1 % (0-3); % LYMPHS 20 % (24-48); % MONOS 4 % (0-10); % SEGS 72 % (35-66)
[2019-11-27 18:34] LABS: PLT ESTIMATE ADEQUATE (ADEQUATE)
[2019-11-27 18:37] LABS: OVALOCYTES FEW
[2019-11-27 18:40] LABS: BURR CELLS FEW
[2019-11-27 18:46] LABS: HYPOCHROMIA PRESENT; TARGET CELLS OCC
[2019-11-27 18:47] LABS: ANISOCYTOSIS PRESENT; MICROCYTOSIS PRESENT
[2019-11-27 18:51] LABS: TEAR DROP CELLS FEW
== END 2019-11-27 17:58 | disposition home or self-care (01) ==
LOC: ER 16:40
DX: K62.5 Hemorrhage of anus and rectum (principal); R53.83 Other fatigue; F41.9 Anxiety disorder, unspecified; I25.10 Atherosclerotic heart disease of native coronary artery without angina pectoris; K21.9 Gastro-esophageal reflux disease without esophagitis; E03.9 Hypothyroidism, unspecified; F20.9 Schizophrenia, unspecified; Z90.89 Acquired absence of other organs; Z98.890 Other specified postprocedural states; Z88.6 Allergy status to analgesic agent; Z88.8 Allergy status to other drugs, medicaments and biological substances
CPT/HCPCS: 36415; 80053; 85007; 85025; 99283

== ENCOUNTER 2020-01-13 17:44 | Emergency (ER) | payer OTHER ==
[~2020-01-13] VITALS: Ht 180.3 cm; Wt 65.9 kg
--- NOTE | 2020-01-13 17:51 | PHYS DOC ---
Past History Past Medical History: A-Fib, Anxiety, GERD, Hypothyroid, Schizophrenia Additional Past Medical Histor: [id number]-Tcawt Dz Past Surgical History: Tonsillectomy, Other Additional Past Surgical Histo: duodenal surg, hernia repair Smoking: Non-smoker Alcohol Use: None Drug Use: None General Adult EDM: Chief Complaint: WEAKNESS/GENERALIZED HPI: HPI: 54-year-old male presents with report of generalized weakness and "some chest discomfort "which is been ongoing for the past few days. Patient reports also hearing voices that tell him not to do things. Patient denies any suicidal or homicidal ideation. Denies trauma. Denies leg swelling or calf tenderness. Denies cardiac risk factors. Patient does report history of schizophrenia. Review of Systems: Review of Systems: Constitutional: Denies fever or chills Eyes: Denies redness or eye pain HENT: Denies nasal congestion or sore throat Respiratory: Denies cough or shortness of breath Cardiovascular: Reports chest pain; denies palpitations GI: Denies abdominal pain, nausea, or vomiting : Denies dysuria or hematuria Musculoskeletal: Denies back pain or joint pain Integument: Denies rash or skin lesions Neurologic: Denies headache, focal weakness or sensory changes; reports generalized weakness Complete systems were reviewed and found to be within normal limits, except as documented in this note. Heart Score: HEART Score for Chest Pain: HEART Score for Chest Pain Response (Comments) Value History Slighlty/Non-Suspicious 0 ECG Normal 0 Age >45 - < 65 1 Risk Factors No Risk Factors 0 Troponin < Normal Limit 0 Total 1 Risk Factors: Risk Factors: DM, Current or recent (<one month) smoker, HTN, HLP, family history of CAD, obesity. Risk Scores: Score 0 - 3: 2.5% MACE over next 6 weeks - Discharge Home Score 4 - 6: 20.3% MACE over next 6 weeks - Admit for Clinical Observation Score 7 - 10: 72.7% MACE over next 6 weeks - Early Invasive Strategies Allergies: Allergies: Allergies Coded Allergies Type Severity Reaction Last Updated Verified aspirin Allergy Intermediate bleeding 01/13/20 Yes Physical Exam: PE: Constitutional: Well developed, well nourished, no acute distress, non-toxic appearance HENT: Normocephalic, atraumatic Eyes: PERRL, EOMI, conjunctiva normal, no discharge, no nystagmus Neck: Normal range of motion, no tenderness Cardiovascular: Heart rate normal, regular rhythm Lungs & Thorax: Bilateral breath sounds clear to auscultation, no wheezing Abdomen: Soft, no tenderness Skin: Warm, dry, no erythema, no rash Extremities: No tenderness, ROM intact, no edema Neurologic: Alert and oriented X 3, no focal deficits noted Psychologic: Affect flat, reports auditory hallucinations; denies suicidal or homicidal ideation EKG: EKG: @ 1745 NSR at 73bpm, NO ST elevation, QRS 72ms, QT/QTc 332/369ms Radiology/Procedures: Radiology/Procedures: PROCEDURE: CHEST PA & LATERAL PA and lateral chest. HISTORY: Weakness, chest pain PA and lateral views were taken of the chest. Lungs are clear. Heart is normal in size. There is no effusion. IMPRESSION: 1. No acute chest disease. Electronically signed by: Jerome Suarez MD (01/13/2020 6:25 PM) [facility] Course & Med Decision Making: Course & Med Decision Making Pertinent Labs and Imaging studies reviewed. (See chart for details) Patient with low cardiac risk factors presents with report of generalized weakness and atypical chest pain. EKG stable. Labs obtained and posted to chart. Troponin within normal limits. Chest x-ray without acute process. Patient neurologically intact. NIHSS 0. Heart score 1. Patient does have history of schizophrenia and reports hearing voices. Patient does not appear to be risk to himself or others. Patient stable for discharge with outpatient follow-up with PCP/mental health. Mental health referral to [facility] provided. Discussed findings and plan with patient, who acknowledges understanding and agreement. Eliazar Disclaimer: Eliazar Disclaimer: This electronic medical record was generated, in whole or in part, using a voice recognition dictation system. Departure Departure: Impression: Primary Impression: Weakness Additional Impressions: Schizophrenia Qualified Codes: F20.9 - Schizophrenia, unspecified Atypical chest pain Disposition: HOME/RESIDENCE PRIOR TO ADM Condition: STABLE Referrals: CRISS POWER MD (PCP) Patient Instructions: Chest Pain (Nonspecific), [id number], Schizophrenia, Weakness, [id number] Justification of Admission: Justification of Admission: Justification of Admission Dx: N/A NIHSS - ED NIH Stroke Scale: NIH Stroke Scale Response (Comments) Value Level of Consciousness: 0 Alert/Responsive 0 LOC Questions: 0 Answers both correctly 0 LOC Commands: 0 Performs both tasks 0 Best Gaze: 0 Normal 0 Visual: 0 No visual loss 0 Facial Palsy: 0 Normal, symmetrical 0 Motor - Left Arm 0 No drift 0 Motor - Right Arm 0 No drift 0 Motor - Left Leg 0 No drift 0 Motor: Right Leg 0 No drift 0 Limb Ataxia: 0 Absent 0 Sensory: 0 No loss 0 Best Language: 0 Normal 0 Dysathria: 0 Normal 0 Extinction and Inattention: 0 Normal 0 Total 0 SEO,NAZARIO Restrepo DO Jan 13, 2020 17:51
[2020-01-13] MEDS ORDERED: IV NORMAL SALINE 1,000ML 1,000 ML IV ONE (18:00)
--- NOTE | 2020-01-13 18:00 | EKG ---
[address] [address] Test Date: 2020-01-13 Test Time: 17:45:03 Pat Name: BOLIVAR JEFF Department: Room: Gender: M Manager Creative: : 1965 Requested By: NAZARIO SEO Order Number: [id number] Reading MD: Measurements Intervals [place] Rate: 73 P: 50 [place]: 138 QRS: 49 QRSD: 72 T: 65 QT: 332 QTc: 369 Interpretive Statements SINUS RHYTHM NORMAL ECG RI6.02 No previous ECG available for comparison
--- NOTE | 2020-01-13 18:28 | RAD ---
PA and lateral chest. HISTORY: Weakness, chest pain PA and lateral views were taken of the chest. Lungs are clear. Heart is normal in size. There is no effusion. IMPRESSION: 1. No acute chest disease. Electronically signed by: Jerome Suarez MD (01/13/2020 6:25 PM) [facility]
[2020-01-13 18:41] LABS: BASO % 1 % (0-3); EOS # 0.2 x10^3/uL (0.0-0.7); EOS % 3 % (0-3); HEMATOCRIT 31.4 % (39.0-53.0); HEMOGLOBIN 9.3 g/dL (13.0-17.5); LYMPH # 1.4 x10^3/uL (1.0-4.8); LYMPH % 23 % (24-48); MEAN CORPUSCULAR HEMOGLOBIN 19 pg (25-35); MEAN CORPUSCULAR HGB CONC 30 g/dL (31-37); MEAN CORPUSCULAR VOLUME 64 fL (79-100); MONO # 0.4 x10^3/uL (0.0-1.1); MONO % 7 % (0-9); NEUT % 66 % (31-73); PLATELET COUNT 442 x10^3/uL (140-400); RED BLOOD COUNT 4.91 x10^6/uL (4.30-5.70); RED CELL DISTRIBUTION WIDTH 20.4 % (11.5-14.5); WHITE BLOOD COUNT 6.1 x10^3/uL (4.0-11.0)
[2020-01-13 18:47] LABS: CALCIUM 8.9 mg/dL (8.5-10.1); CREATININE 1.1 mg/dL (0.7-1.3); GFR 70.3; POTASSIUM 4.7 mmol/L (3.5-5.1)
[2020-01-13 19:04] LABS: ALBUMIN 3.9 g/dL (3.4-5.0); ALBUMIN/GLOBULIN RATIO 1.3 (1.0-1.7); MAGNESIUM 2.2 mg/dL (1.8-2.4); TOTAL BILIRUBIN 0.4 mg/dL (0.2-1.0)
[2020-01-13 19:59] LABS: AMPHETAMINE/METHAMPHETAMINE NEG (NEG); BARBITURATES NEG (NEG); BENZODIAZEPINES NEG (NEG); CANNABINOIDS NEG (NEG); COCAINE NEG (NEG); METHADONE NEG (NEG); OPIATES NEG (NEG); PHENCYCLIDINE NEG (NEG)
[2020-01-13 20:19] LABS: CLARITY,URINE CLEAR; COLOR,URINE YELLOW
[2020-01-13 20:20] VITALS: BP 125/61
[2020-01-13 20:20] LABS: BACTERIA,URINE 0 /HPF (0-FEW); BILIRUBIN,URINE NEG (NEG); GLUCOSE,URINE 250 mg/dL (NEG); NITRITE,URINE NEG (NEG); RBC,URINE 0 /HPF (0-2); UROBILINOGEN,URINE 0.2 mg/dL (0.2 mg/dL); WBC,URINE 0 /HPF (0-4)
[2020-01-13 21:50] LABS: % BANDS 1 % (0-9); % EOS 2 % (0-5); % LYMPHS 18 % (24-48); % MONOS 9 % (0-10); % SEGS 70 % (35-66); ANISOCYTOSIS MOD; PLT ESTIMATE ADEQUATE (ADEQUATE)
[2020-01-13 21:51] LABS: MICROCYTOSIS MOD; OVALOCYTES MOD; POIKILOCYTOSIS MOD
[2020-01-13 21:53] LABS: HYPOCHROMIA MARKED
== END 2020-01-13 20:40 | disposition home or self-care (01) ==
LOC: ER 17:44
DX: R07.89 Other chest pain (principal); R53.1 Weakness; F20.9 Schizophrenia, unspecified; I48.91 Unspecified atrial fibrillation; F41.9 Anxiety disorder, unspecified; K21.9 Gastro-esophageal reflux disease without esophagitis; E03.9 Hypothyroidism, unspecified; Z88.6 Allergy status to analgesic agent
CPT/HCPCS: 36415; 71046; 80053; 80307; 81001; 82553; 83690; 83735; 83880; 84484; 85007; 85025; 85610; 85730; 93005; 99285; J7030

== ENCOUNTER 2020-02-03 14:55 | Emergency (ER) | payer OTHER ==
[~2020-02-03] VITALS: Ht 180.3 cm; Wt 65.9 kg
[2020-02-03] MEDS: ALBUTEROL SULFATE 2.5 MG/3 ML NEBU. NEB ONE (15:15)
--- NOTE | 2020-02-03 15:28 | RAD ---
CHEST AP ONLY History: Reason: SOB / Spl. Instructions: / History: Comparison: January 13, 2020 Findings: No consolidation or pleural effusion. Normal heart size. No pneumothorax. Impression: 1. No acute cardiopulmonary process. Electronically signed by: Guillermo Muir DO (02/03/2020 3:26 PM) [facility]
--- NOTE | 2020-02-03 15:53 | PHYS DOC ---
Past History Past Medical History: A-Fib, Anxiety, GERD, Hypothyroid, Schizophrenia Additional Past Medical Histor: Ddald-Fidkw-Nzcdn Dz Past Surgical History: Tonsillectomy, Other Additional Past Surgical Histo: duodenal surg, hernia repair Smoking: Non-smoker Alcohol Use: None Drug Use: None General Adult EDM: Chief Complaint: SHORTNESS OF BREATH HPI: HPI: 54-year-old male presents emergency room with shortness of breath. Denies chest pain or diaphoresis. The patient is well-known to the emergency room. He tells me that he is just feeling a little more winded today. He denies fever chills. He has no known COVID-19 exposures. Review of Systems: Review of Systems: Constitutional: Denies fever or chills Eyes: Denies change in visual acuity HENT: Denies nasal congestion or sore throat Respiratory: shortness of breath Cardiovascular: Denies chest pain or edema GI: Denies abdominal pain, nausea, vomiting, bloody stools or diarrhea : Denies dysuria Musculoskeletal: Denies back pain or joint pain Integument: Denies rash Neurologic: Denies headache, focal weakness or sensory changes Endocrine: Denies polyuria or polydipsia Lymphatic: Denies swollen glands Psychiatric: Denies depression or anxiety Heart Score: Risk Factors: Risk Factors: DM, Current or recent (<one month) smoker, HTN, HLP, family history of CAD, obesity. Risk Scores: Score 0 - 3: 2.5% MACE over next 6 weeks - Discharge Home Score 4 - 6: 20.3% MACE over next 6 weeks - Admit for Clinical Observation Score 7 - 10: 72.7% MACE over next 6 weeks - Early Invasive Strategies Current Medications: Current Meds: Current Medications Medications (Trade) Dose Ordered Sig/Tomasz Start Time Stop Time Status Last Admin Dose Admin Albuterol Sulfate (Ventolin) 2.5 mg 1X ONCE 02/03/20 15:15 02/03/20 15:16 DC 02/03/20 15:15 2.5 MG Allergies: Allergies: Allergies Coded Allergies Type Severity Reaction Last Updated Verified aspirin Allergy Intermediate bleeding 01/13/20 Yes Physical Exam: PE: Constitutional: Well developed, well nourished, no acute distress, non-toxic appearance. [] HENT: Normocephalic, atraumatic, bilateral external ears normal, oropharynx moist, no oral exudates, nose normal. [] Eyes: PERRLA, EOMI, conjunctiva normal, no discharge. [] Neck: Normal range of motion, no tenderness, supple, no stridor. [] Cardiovascular: Heart rate regular rhythm, no murmur [] Lungs & Thorax: Bilateral breath sounds clear to auscultation [] Abdomen: Bowel sounds normal, soft, no tenderness, no masses, no pulsatile masses. [] Skin: Warm, dry, no erythema, no rash. [] Back: No tenderness, no CVA tenderness. [] Extremities: No tenderness, no cyanosis, no clubbing, ROM intact, no edema. [] Neurologic: Alert and oriented X 3, normal motor function, normal sensory function, no focal deficits noted. [] Psychologic: Affect normal, judgement normal, mood normal. [] Current Patient Data: Vital Signs: Vital Signs Date Time Temp Pulse Resp B/P (MAP) Pulse Ox O2 Delivery O2 Flow Rate FiO2 02/03/20 15:16 98 Room Air 02/03/20 15:05 98.2 75 14 146/89 (108) EKG: EKG: [] Radiology/Procedures: Radiology/Procedures: [] Impressions: CHEST AP ONLY History: Reason: SOB / Spl. Instructions: / History: Comparison: January 13, 2020 Findings: No consolidation or pleural effusion. Normal heart size. No pneumothorax. Impression: 1. No acute cardiopulmonary process. Electronically signed by: Guillermo Romano DO (02/03/2020 3:26 PM) [facility] DICTATED AND SIGNED BY: GUILLERMO ROMANO DO DATE: 02/03/20 1526 CC: DONTAE MCLEAN DO; CRISS POWER MD ~ Course & Med Decision Making: Course & Med Decision Making Pertinent Labs and Imaging studies reviewed. (See chart for details) The patient's chest x-ray is unremarkable. He was given an albuterol breathing treatment which helped with his shortness of breath. He is stable for discharge at this time. [] Dragon Disclaimer: Dragon Disclaimer: This electronic medical record was generated, in whole or in part, using a voice recognition dictation system. Departure Departure: Impression: Primary Impression: Dyspnea Disposition: HOME/RESIDENCE PRIOR TO ADM Condition: STABLE Referrals: CRISS POWER MD (PCP) Patient Instructions: Shortness of Breath, [id number] Justification of Admission: Justification of Admission: Justification of Admission Dx: N/A DONTAE MCLEAN DO Feb 03, 2020 15:53
[2020-02-03 16:07] VITALS: BP 111/59
== END 2020-02-03 16:58 | disposition home or self-care (01) ==
LOC: ER 14:55
DX: R06.02 Shortness of breath (principal); I48.91 Unspecified atrial fibrillation; F41.9 Anxiety disorder, unspecified; K21.9 Gastro-esophageal reflux disease without esophagitis; E03.9 Hypothyroidism, unspecified; F20.9 Schizophrenia, unspecified; Z88.6 Allergy status to analgesic agent
CPT/HCPCS: 71045; 94640; 99283; J7613

== ENCOUNTER 2020-02-24 03:34 | Emergency (ER) | payer OTHER ==
[~2020-02-24] VITALS: Ht 180.3 cm; Wt 65.9 kg
[2020-02-24 03:34] VITALS: BP 127/71
[2020-02-24] MEDS ORDERED: KETO120S4 TP (03:56)
[2020-02-24] MEDS ORDERED: CEPH-264 PO (03:56)
--- NOTE | 2020-02-24 03:56 | PHYS DOC ---
Past History Past Medical History: A-Fib, Anxiety, GERD, Hypothyroid, Schizophrenia Additional Past Medical Histor: [id number]-Mknxx Dz Past Surgical History: Tonsillectomy, Other Additional Past Surgical Histo: duodenal surg, hernia repair Smoking: Non-smoker Alcohol Use: None Drug Use: None General Adult EDM: Chief Complaint: Foot pain HPI: HPI: 54-year-old male who is well-known to the emergency room presents with left foot pain. The patient has a couple of sores on the top of his left foot. He tells me that those have been there "for a while". He is not sure when these occurred. He just decided to come the emergency room tonight. Patient also complains of an itchy scalp. He has several areas of scratching and scabbing. He denies fever chills. Review of Systems: Review of Systems: Constitutional: Denies fever or chills Eyes: Denies change in visual acuity HENT: Denies nasal congestion or sore throat Respiratory: Denies cough or shortness of breath Cardiovascular: Denies chest pain or edema GI: Denies abdominal pain, nausea, vomiting, bloody stools or diarrhea : Denies dysuria Musculoskeletal: Denies back pain or joint pain Integument: Left foot wound, flaky skin on scalp Neurologic: Denies headache, focal weakness or sensory changes Endocrine: Denies polyuria or polydipsia Lymphatic: Denies swollen glands Psychiatric: Denies depression or anxiety Heart Score: Risk Factors: Risk Factors: DM, Current or recent (<one month) smoker, HTN, HLP, family history of CAD, obesity. Risk Scores: Score 0 - 3: 2.5% MACE over next 6 weeks - Discharge Home Score 4 - 6: 20.3% MACE over next 6 weeks - Admit for Clinical Observation Score 7 - 10: 72.7% MACE over next 6 weeks - Early Invasive Strategies Allergies: Allergies: Allergies Coded Allergies Type Severity Reaction Last Updated Verified aspirin Allergy Intermediate bleeding 01/13/20 Yes Physical Exam: PE: Constitutional: Well developed, well nourished, no acute distress, non-toxic appearance. [] HENT: Normocephalic, atraumatic, bilateral external ears normal, oropharynx moist, no oral exudates, nose normal. [] Eyes: PERRLA, EOMI, conjunctiva normal, no discharge. [] Neck: Normal range of motion, no tenderness, supple, no stridor. [] Cardiovascular:Heart rate regular rhythm, no murmur [] Lungs & Thorax: Bilateral breath sounds clear to auscultation [] Abdomen: Bowel sounds normal, soft, no tenderness, no masses, no pulsatile masses. [] Skin: 5 mm lesion to the top of the left foot with 2 cm surrounding erythema, warm to the touch. Scalp with flaky skin and scabbing consistent with tinea capitis. [] Back: No tenderness, no CVA tenderness. [] Extremities: No tenderness, no cyanosis, no clubbing, ROM intact, no edema. [] Neurologic: Alert and oriented X 3, normal motor function, normal sensory function, no focal deficits noted. [] Psychologic: Affect normal, judgement normal, mood normal. [] EKG: EKG: [] Radiology/Procedures: Radiology/Procedures: [] Course & Med Decision Making: Course & Med Decision Making Pertinent Labs and Imaging studies reviewed. (See chart for details) I am concerned that the patient's wound on the top of his foot could be cellulitis. It is mildly erythematous and slightly warmer than the surrounding skin. There is a central area of ulceration, but it does not appear to be purulent. I will cover him with an antibiotic for 7 days. We will give the first dose in the emergency room. His scalp is consistent with tinea capitis. I will prescribe ketoconazole shampoo. He is stable for discharge at this time. [] Dragon Disclaimer: Dragon Disclaimer: This electronic medical record was generated, in whole or in part, using a voice recognition dictation system. Departure Departure: Impression: Primary Impression: Tinea capitis Additional Impression: Lower extremity cellulitis Qualified Codes: L03.116 - Cellulitis of left lower limb Disposition: HOME/RESIDENCE PRIOR TO ADM Condition: STABLE Referrals: CRISS POWER MD (PCP) Patient Instructions: Cellulitis, [id number], Tinea Versicolor (Yeast Infection of the Skin) Scripts Ketoconazole (KETOCONAZOLE) 120 Ml Shampoo 1 SHANNON TP TWICE WEEKLY for tinea capitus for 30 Days, #120 ML 0 Refills with at least 3 days between each shampooing Prov: DONTAE MCLEAN DO 02/24/20 Cephalexin (KEFLEX) 500 Mg Capsule 1 CAP PO TID for cellulitis foot for 7 Days, #21 CAP 0 Refills Prov: DONTAE MCLEAN DO 02/24/20 Justification of Admission: Justification of Admission: Justification of Admission Dx: N/A DONTAE MCLEAN DO Feb 24, 2020 03:56
[2020-02-24] MEDS ORDERED: CEPHALEXIN 250 MG CAPSULE PO ONE (04:00)
[2020-02-24] MEDS ORDERED: CEPHALEXIN 250 MG CAPSULE ONE (04:07)
== END 2020-02-24 04:10 | disposition home or self-care (01) ==
LOC: ER 03:34
DX: B35.0 Tinea barbae and tinea capitis (principal); L03.116 Cellulitis of left lower limb; I48.91 Unspecified atrial fibrillation; F41.9 Anxiety disorder, unspecified; K21.9 Gastro-esophageal reflux disease without esophagitis; E03.9 Hypothyroidism, unspecified; F20.9 Schizophrenia, unspecified; I78.0 Hereditary hemorrhagic telangiectasia; Z88.6 Allergy status to analgesic agent
CPT/HCPCS: 99283

== ENCOUNTER 2020-03-03 16:52 | Emergency (ER) | payer OTHER ==
[~2020-03-03] VITALS: Ht 180.3 cm; Wt 65.9 kg
[~2020-03-03 16:52] MED LIST changes: +CEPH-264 PO; +KETO120S4 TP
[2020-03-03 17:01] VITALS: BP 113/67
--- NOTE | 2020-03-03 17:44 | PHYS DOC ---
Past History Past Medical History: A-Fib, Anxiety, GERD, Hypothyroid, Schizophrenia Additional Past Medical Histor: Zjric-Sccwh-Hctru Dz Past Surgical History: Tonsillectomy, Other Additional Past Surgical Histo: duodenal surg, hernia repair Smoking: Non-smoker Alcohol Use: None Drug Use: None General Adult EDM: Chief Complaint: ANKLE PROBLEM HPI: HPI: 54-year-old male who is well-known to the emergency room presents with left ankle pain. I have personally seen the patient for this previously. He was on antibiotics for possible infection. He is still complaining of pain around the left ankle and where he has some abrasions from scratching. Patient denies any other complaints at this time. Review of Systems: Review of Systems: Constitutional: Denies fever or chills Eyes: Denies change in visual acuity HENT: Denies nasal congestion or sore throat Respiratory: Denies cough or shortness of breath Cardiovascular: Denies chest pain or edema GI: Denies abdominal pain, nausea, vomiting, bloody stools or diarrhea : Denies dysuria Musculoskeletal: ankle pain Integument: Denies rash Neurologic: Denies headache, focal weakness or sensory changes Endocrine: Denies polyuria or polydipsia Lymphatic: Denies swollen glands Psychiatric: Denies depression or anxiety Heart Score: Risk Factors: Risk Factors: DM, Current or recent (<one month) smoker, HTN, HLP, family history of CAD, obesity. Risk Scores: Score 0 - 3: 2.5% MACE over next 6 weeks - Discharge Home Score 4 - 6: 20.3% MACE over next 6 weeks - Admit for Clinical Observation Score 7 - 10: 72.7% MACE over next 6 weeks - Early Invasive Strategies Allergies: Allergies: Allergies Coded Allergies Type Severity Reaction Last Updated Verified aspirin Allergy Intermediate bleeding 03/03/20 Yes Physical Exam: PE: Constitutional: Well developed, well nourished, no acute distress, non-toxic appearance. [] HENT: Normocephalic, atraumatic, bilateral external ears normal, oropharynx moist, no oral exudates, nose normal. [] Eyes: PERRLA, EOMI, conjunctiva normal, no discharge. [] Neck: Normal range of motion, no tenderness, supple, no stridor. [] Cardiovascular: Heart rate regular rhythm, no murmur [] Lungs & Thorax: Bilateral breath sounds clear to auscultation [] Abdomen: Bowel sounds normal, soft, no tenderness, no masses, no pulsatile masses. [] Skin: Multiple areas of scratches, and no current signs of cellulitis. [] Back: No tenderness, no CVA tenderness. [] Extremities: No tenderness, no cyanosis, no clubbing, ROM intact, no edema. [] Neurologic: Alert and oriented X 3, normal motor function, normal sensory functi on, no focal deficits noted. [] Psychologic: Affect normal, judgement normal, mood normal. [] Current Patient Data: Vital Signs: Vital Signs Date Time Temp Pulse Resp B/P (MAP) Pulse Ox O2 Delivery O2 Flow Rate FiO2 03/03/20 17:01 98.2 79 18 113/67 (82) 96 Room Air EKG: EKG: [] Radiology/Procedures: Radiology/Procedures: [] Course & Med Decision Making: Course & Med Decision Making Pertinent Labs and Imaging studies reviewed. (See chart for details) [] Dragon Disclaimer: Dragon Disclaimer: This electronic medical record was generated, in whole or in part, using a voice recognition dictation system. Departure Departure: Impression: Primary Impression: Ankle pain, left Disposition: HOME/RESIDENCE PRIOR TO ADM Condition: STABLE Referrals: CRISS POWER MD (PCP) Patient Instructions: Ankle Pain Justification of Admission: Justification of Admission: Justification of Admission Dx: N/A DONTAE MCLEAN DO Mar 03, 2020 17:44
== END 2020-03-03 17:50 | disposition home or self-care (01) ==
LOC: ER 16:52
DX: S90.512A Abrasion, left ankle, initial encounter (principal); M25.572 Pain in left ankle and joints of left foot; I48.91 Unspecified atrial fibrillation; F41.9 Anxiety disorder, unspecified; K21.9 Gastro-esophageal reflux disease without esophagitis; E03.9 Hypothyroidism, unspecified; F20.9 Schizophrenia, unspecified; Z88.6 Allergy status to analgesic agent; X58.XXXA Exposure to other specified factors, initial encounter; Y93.89 Activity, other specified; Y92.89 Other specified places as the place of occurrence of the external cause; Y99.8 Other external cause status
CPT/HCPCS: 99283

== ENCOUNTER 2020-03-13 05:00 | Emergency (ER) | payer OTHER ==
[~2020-03-13] VITALS: Ht 180.3 cm; Wt 64.2 kg
--- NOTE | 2020-03-13 05:26 | PHYS DOC ---
Past History Past Medical History: A-Fib, Anxiety, GERD, Hypothyroid, Schizophrenia Additional Past Medical Histor: Vftnn-Jakrb-Wqsnz Dz Past Surgical History: Tonsillectomy, Other Additional Past Surgical Histo: duodenal surg, hernia repair Smoking: Non-smoker Alcohol Use: None Drug Use: None Adult General HPI HPI Patient is a 54-year-old male who presents for left ankle pain. Patient has a past medical history of schizophrenia and is a poor historian. Patient reports onset was approximately 1 week ago without any known inciting event or trauma. Nothing known makes better, ambulation and weightbearing make worse. Patient reports focal pain to medial malleolus of right ankle, he is unable to classify or quantify his pain levels at this time. Reports he suffered road rash injury to area but unable to tell me the mechanism of action. He is homeless and ambulates great distances daily on foot, he has been able to ambulate but reports great pain in doing so recently. Denies any fever, changes in motor or sensory function, no focal deficits Review of Systems Review of Systems Fourteen body systems of review of systems have been reviewed. See HPI for pertinent positives and negative responses, other yadav all other systems are negative, non-pertinent or non-contributory Allergies Allergies Allergies Coded Allergies Type Severity Reaction Last Updated Verified aspirin Allergy Intermediate bleeding 03/03/20 Yes Physical Exam Physical Exam Constitutional: Well developed, well nourished, no acute distress, non-toxic appearance. HENT: Normocephalic, atraumatic, bilateral external ears normal, oropharynx moist, no oral exudates, nose normal. Eyes: PERRLA, EOMI, conjunctiva normal, no discharge. Neck: Normal range of motion, no tenderness, supple, no stridor. Cardiovascular: Heart rate regular, sinus rhythm, no murmurs rubs or gallops Lungs & Thorax: Bilateral breath sounds clear to auscultation Abdomen: Bowel sounds normal, soft, no tenderness, no masses, no pulsatile masses. Nonsurgical abdomen, no peritoneal signs Skin: Warm, dry, no erythema, no rash. Back: No tenderness, no CVA tenderness. Extremities: No cyanosis, no clubbing, ROM intact, no edema. Left foot and Ankle Proximal Tibia nontender Medial malleolus tender to palpation Lateral malleolus tender to palpation Calcaneus nontender Tarsometatarsal region nontender Base of 5th nontender Rest of foot and ankle without marked tenderness Varus and Valgus Stress of ankle joint without significant laxity Full Range of Motion with full strength Skin on plantar section of midfoot without ecchymosis, left skin abrasion consistent with road rash noted over medial malleolus of left foot Capillary refill <2seconds and distal Sensation to light touch in tact per routine Compartments surrounding are soft Neurologic: Alert and oriented X 3, grossly normal motor & sensory function, no focal deficits noted. Psychologic: Flat affect, depressed mood EKG EKG [] Radiology/Procedures Radiology/Procedures 2 view radiograph of left ankle obtained and interpreted by myself as no acute bony abnormalities. Pending official radiologist read at this time Course & Med Decision Making Course & Med Decision Making Ambulatory patient seen on ER arrival ABCs non-concerning Limited history obtainable given patient is a poor historian, physical exam obtained. [place] ankle rules positive and subsequent left ankle radiographs obtained that were subsequently negative for any acute bony abnormalities Discussed limited indication for further diagnostic work-up in ER setting Patient advised to follow-up with primary care physician with continued supportive care recommended for left ankle pain and left lower leg abrasions Patient educated on supportive care measures such as ice and using NSAIDs as needed for pain control Strict return precautions discussed with good understanding by patient, all questions and concerns addressed prior to ER departure in stable condition Dragon Disclaimer Dragon Disclaimer This electronic medical record was generated, in whole or in part, using a voice recognition dictation system. Departure Departure: Impression: Primary Impression: Left ankle pain Additional Impression: Leg abrasion Disposition: HOME/RESIDENCE PRIOR TO ADM Condition: STABLE Referrals: CRISS POWER MD (PCP) Patient Instructions: Abrasion, [id number], Ankle Pain, RICE - Routine Care for Injuries Justification of Admission: Justification of Admission: Justification of Admission Dx: N/A Problem Qualifiers CRUZ BHATT DO Mar 13, 2020 05:26
[2020-03-13] MEDS ORDERED: BACITRACIN ZINC TOPICAL OINT PACKET. TP ONE (06:00)
[2020-03-13 06:11] VITALS: BP 111/57
--- NOTE | 2020-03-13 06:25 | RAD ---
LEFT FOOT AP LATERAL OBLIQUE Clinical Indication: Reason: left foot pain / Comparison: None. Findings: There is no acute fracture or dislocation. The bony alignment is normal. Mineralization is normal. No bony erosion. Arterial calcifications are seen. No soft tissue swelling. Calcaneal bone spur. IMPRESSION: No acute fracture. Electronically signed by: Kenn Drake MD (03/13/2020 6:22 AM) [facility]
== END 2020-03-13 06:11 | disposition home or self-care (01) ==
LOC: ER 05:00
DX: S80.812A Abrasion, left lower leg, initial encounter (principal); I48.91 Unspecified atrial fibrillation; F41.9 Anxiety disorder, unspecified; K21.9 Gastro-esophageal reflux disease without esophagitis; E03.9 Hypothyroidism, unspecified; F20.9 Schizophrenia, unspecified; Z88.6 Allergy status to analgesic agent; X58.XXXA Exposure to other specified factors, initial encounter; Y93.89 Activity, other specified; Y92.89 Other specified places as the place of occurrence of the external cause; Y99.8 Other external cause status
CPT/HCPCS: 73630; 99283

== ENCOUNTER 2020-03-28 04:13 | Emergency (ER) | payer OTHER ==
[~2020-03-28] VITALS: Ht 180.3 cm; Wt 64.2 kg
[2020-03-28 04:15] VITALS: BP 120/58
[2020-03-28] MEDS ORDERED: NEOMY/BACITR/POLYMYXIN OINT PACKET. TP ONE ×2 (04:30→04:35)
[2020-03-28] MEDS ORDERED: MUPI22OI2 TP (04:33)
--- NOTE | 2020-03-28 04:33 | PHYS DOC ---
Past History Past Medical History: A-Fib, Anxiety, Depression, GERD, Hypothyroid, Schizophrenia Additional Past Medical Histor: Macsq-Fyejc-Bpmih Dz Past Surgical History: Tonsillectomy, Other Additional Past Surgical Histo: duodenal surg, hernia repair Smoking: Non-smoker Alcohol Use: None Drug Use: None General Adult EDM: Chief Complaint: FOOT INJURY PAIN HPI: HPI: 54-year-old male presents with report of wound to inner aspect of left ankle which is been ongoing for the past 4 to 5 days. Patient denies known trauma. Denies history of diabetes. Denies surrounding redness or pain. Patient reports he has not been dressing it or treating it with any antibiotic ointment. Denies any fever or chills. Review of Systems: Review of Systems: Constitutional: Denies fever or chills Musculoskeletal: Denies back pain or joint pain Integument: Reports left ankle wound Neurologic: Denies headache, focal weakness or sensory changes Complete systems were reviewed and found to be within normal limits, except as documented in this note. Allergies: Allergies: Allergies Coded Allergies Type Severity Reaction Last Updated Verified aspirin Allergy Intermediate bleeding 03/13/20 Yes Physical Exam: PE: Constitutional: Well developed, well nourished, no acute distress, non-toxic appearance HENT: Normocephalic, atraumatic Eyes: Conjunctiva normal, no discharge Neck: Normal range of motion, no tenderness, supple Lungs & Thorax: No respiratory distress, equal chest rise and fall Skin: Warm, dry, 0.5 cm area of eschar to left inner ankle without surrounding erythema or induration Extremities: No bony tenderness, ROM intact, no edema Neurologic: Alert and oriented X 3, no focal deficits noted Psychologic: Affect flat, judgment normal Current Patient Data: Vital Signs: Vital Signs Date Time Temp Pulse Resp B/P (MAP) Pulse Ox O2 Delivery O2 Flow Rate FiO2 03/28/20 04:15 97.0 71 18 120/58 (78) 97 Room Air EKG: EKG: [] Radiology/Procedures: Radiology/Procedures: [] Course & Med Decision Making: Course & Med Decision Making Patient presents with small area of eschar to left medial ankle x4 to 5 days. No signs of surrounding erythema. Wound cleaned and dressed with bandage and triple antibiotic ointment. Prescription for Bactroban provided. Patient stable for discharge with outpatient follow-up with PCP. Discussed findings and plan with patient, who acknowledges understanding and agreement. Eliazar Disclaimer: Eliazar Disclaimer: This electronic medical record was generated, in whole or in part, using a voice recognition dictation system. Departure Departure: Impression: Primary Impression: Ankle abrasion Qualified Codes: S90.512A - Abrasion, left ankle, initial encounter Disposition: HOME/RESIDENCE PRIOR TO ADM Condition: STABLE Referrals: CRISS POWER MD (PCP) Patient Instructions: Abrasion, [id number] Scripts Mupirocin (MUPIROCIN) 22 Gm Oint...g. 1 SHANNON TP TID for Wound care, #15 GM Prov: NAZARIO SEO DO 03/28/20 Justification of Admission: Justification of Admission: Justification of Admission Dx: N/A NAZARIO SEO DO Mar 28, 2020 04:33
== END 2020-03-28 04:35 | disposition home or self-care (01) ==
LOC: ER 04:13
DX: S90.512A Abrasion, left ankle, initial encounter (principal); I48.91 Unspecified atrial fibrillation; K21.9 Gastro-esophageal reflux disease without esophagitis; E03.9 Hypothyroidism, unspecified; F20.9 Schizophrenia, unspecified; Z88.6 Allergy status to analgesic agent; X58.XXXA Exposure to other specified factors, initial encounter; Y93.89 Activity, other specified; Y92.89 Other specified places as the place of occurrence of the external cause; Y99.8 Other external cause status
CPT/HCPCS: 99283

== ENCOUNTER 2020-03-31 05:42 | Emergency (ER) | payer OTHER ==
[~2020-03-31] VITALS: Ht 180.3 cm; Wt 64.2 kg
[~2020-03-31 05:42] MED LIST changes: +MUPI22OI2 TP
[2020-03-31 05:53] VITALS: BP 105/54
--- NOTE | 2020-03-31 06:18 | PHYS DOC ---
Past History Past Medical History: A-Fib, Anxiety, Depression, GERD, Hypothyroid, Schizophrenia Additional Past Medical Histor: Ltmto-Nfpob-Wskzt Dz Past Surgical History: Tonsillectomy, Other Additional Past Surgical Histo: duodenal surg, hernia repair Smoking: Non-smoker Alcohol Use: None Drug Use: None General Adult EDM: Chief Complaint: LOWER EXT PAIN HPI: HPI: Patient is a 55-year-old male who presents with chronic left foot and ankle pain. Patient has been here 3 other times in the last month for similar episo binta. Patient states he started having pain 3 days ago that atraumatic on the left medial malleolus radiates up the leg. Patient denies any recent trauma. Patient denies any fevers chills but has had a cough for last 2 months. Patient denies any trouble breathing. Pain is described as a a pain and worse with ambulation. Review of Systems: Review of Systems: Constitutional: Denies fever or chills Eyes: Denies change in visual acuity HENT: Denies nasal congestion or sore throat Respiratory: Denies cough or shortness of breath Cardiovascular: Denies chest pain or edema GI: Denies abdominal pain, nausea, vomiting, bloody stools or diarrhea : Denies dysuria Musculoskeletal: Denies back pain complains of left ankle pain Integument: Denies rash Neurologic: Denies headache, focal weakness or sensory changes Endocrine: Denies polyuria or polydipsia Lymphatic: Denies swollen glands Psychiatric: Denies depression or anxiety Heart Score: Risk Factors: Risk Factors: DM, Current or recent (<one month) smoker, HTN, HLP, family history of CAD, obesity. Risk Scores: Score 0 - 3: 2.5% MACE over next 6 weeks - Discharge Home Score 4 - 6: 20.3% MACE over next 6 weeks - Admit for Clinical Observation Score 7 - 10: 72.7% MACE over next 6 weeks - Early Invasive Strategies Allergies: Allergies: Allergies Coded Allergies Type Severity Reaction Last Updated Verified aspirin Allergy Intermediate bleeding 03/13/20 Yes Physical Exam: PE: Constitutional: Well developed, well nourished, no acute distress, non-toxic appearance. [] HENT: Normocephalic, atraumatic, bilateral external ears normal, no trismus, nose normal. [] Eyes: PERRLA, EOMI, conjunctiva normal, no discharge. [] Neck: Normal range of motion, no tenderness, supple, no stridor. [] Cardiovascular: Regular rate dorsalis pedis and posterior tibialis pulses 2+ left lower extremity, cap refill less than 2 seconds Lungs & Thorax: Bilateral breath sounds clear, no respiratory distress Abdomen: Bowel sounds normal, soft, no tenderness, no masses, no pulsatile masses. [] Skin: Left dorsal aspect of the foot psoriatic appearing rash without signs of erythema warmth or superinfection. There is a small superficial ulceration on the left medial malleolus Back: No tenderness, no CVA tenderness. [] Extremities: Left ankle without warmth erythema, mild tenderness to the left medial malleolus, neurovascular intact distally, no joint effusion. Full range of motion. Neurologic: Alert and oriented X 3, normal motor function, normal sensory function, no focal deficits noted. [] Psychologic: Affect normal, judgement normal, mood normal. [] Current Patient Data: Vital Signs: Vital Signs Date Time Temp Pulse Resp B/P (MAP) Pulse Ox O2 Delivery O2 Flow Rate FiO2 03/31/20 05:53 97.4 63 20 105/54 (71) 97 Room Air EKG: EKG: [] Radiology/Procedures: Radiology/Procedures: [] Course & Med Decision Making: Course & Med Decision Making Pertinent Labs and Imaging studies reviewed. (See chart for details) [] 55-year-old male with chronic left ankle pain. No evidence of DVT. No evidence of superinfection. Patient will need orthopedic follow-up. Jordan wrap will be ordered. Patient otherwise stable. Eliazar Disclaimer: Eliazar Disclaimer: This electronic medical record was generated, in whole or in part, using a voice recognition dictation system. Departure Departure: Impression: Primary Impression: Chronic pain of left ankle Disposition: HOME/RESIDENCE PRIOR TO ADM Condition: STABLE Referrals: CRISS POWER MD (PCP) LETITIA MERIDA MD 2-3 days Patient Instructions: Ankle Pain Additional Instructions: EMERGENCY DEPARTMENT GENERAL DISCHARGE INSTRUCTIONS THANK YOU for coming to [facility] Emergency Department (ED) today and trusting us with your care. We trust that you had a positive experience in our Emergency Department. If you wish to speak to the department Management you can contact the emergency department at YOUR FOLLOW UP INSTRUCTIONS ARE FOLLOWS: Do you have a private doctor? If you do not have a private doctor, please ask for a resource list of physicians or clinics that may be able to assist you with follow up care. The Emergency Physician has interpreted your x-rays. The X-ray specialist will also review them. If there is a change in the findings you will be notified in 48 hours when at all possible. A lab test or lab culture may have been done, your results will be reviewed and you will be notified if you need a change in treatment. ADDITIONAL INSTRUCTIONS AND INFORMATION Your care today has been supervised by a physician who is specially trained in emergency care. Many problems require more than one evaluation for a complete diagnosis and treatment. We recommend that you schedule your follow up appointment as recommended to ensure complete treatment of your illness or injury. If you are unable to obtain follow up care and continue to have a problem, or if your condition worsens we recommend that you return to the ED. We are not able to safely determine your condition over the phone nor are we able to give sound medical advice over the phone. For these safety reasons, if you call for medical advice we will ask you to come to the ED for further evaluation If you have any questions regarding these discharge instructions please call the ED at . SAFETY INFORMATION In the interest of safety, wellness, and injury prevention; we encourage you to wear your seatbelt, if you smoke; quit smoking, and we encourage your family to use protective helmet for bicycling and other sporting events that present an increased risk for head injury. IF YOUR SYMPTOMS WORSEN OR NEW SYMPTOMS DEVELOP, OR YOU HAVE CONCERNS ABOUT YOUR CONDITION; OR IF YOUR CONDITION WORSENS WHILE YOU ARE WAITING FOR YOUR FOLLOW UP APPOINTMENT; EITHER CONTACT YOUR PRIMARY CARE DOCTOR, THE PHYSICIAN WHOSE NAME AND NUMBER YOU WERE GIVEN, OR RETURN TO THE ED IMMEDIATELY. Take ibuprofen or Tylenol for pain Justification of Admission: Justification of Admission: Justification of Admission Dx: N/A YASMEEN VILLARREAL MD Mar 31, 2020 06:18
== END 2020-03-31 06:23 | disposition home or self-care (01) ==
LOC: ER 05:42
DX: G89.29 Other chronic pain (principal); M25.572 Pain in left ankle and joints of left foot; M79.672 Pain in left foot; L97.829 Non-pressure chronic ulcer of other part of left lower leg with unspecified severity; I48.91 Unspecified atrial fibrillation; K21.9 Gastro-esophageal reflux disease without esophagitis; E03.9 Hypothyroidism, unspecified; F20.9 Schizophrenia, unspecified; I78.0 Hereditary hemorrhagic telangiectasia; Z88.6 Allergy status to analgesic agent
CPT/HCPCS: 99282

== ENCOUNTER 2020-04-07 09:34 | Emergency (ER) | payer OTHER ==
[~2020-04-07] VITALS: Ht 180.3 cm; Wt 64.2 kg
--- NOTE | 2020-04-07 10:25 | EKG ---
[facility] ED [facility] [address] [place] [id number] Test Date: 2020-04-07 Test Time: 09:54:32 Pat Name: BOLIVAR JEFF Department: Room: Gender: M Recreation Activities Coordinator: : 1965 Requested By: YANA SANDOVAL Order Number: [id number] Reading MD: Measurements Intervals [place] Rate: 51 P: 51 MO: 138 QRS: 55 QRSD: 90 T: 66 QT: 400 QTc: 370 Interpretive Statements SINUS RHYTHM INCOMPLETE RIGHT BUNDLE BRANCH BLOCK OTHERWISE NORMAL ECG RI6.02 No previous ECG available for comparison
[2020-04-07 10:53] LABS: BASO % 1 % (0-3); EOS # 0.2 x10^3/uL (0.0-0.7); EOS % 3 % (0-3); HEMATOCRIT 30.3 % (39.0-53.0); HEMOGLOBIN 8.4 g/dL (13.0-17.5); LYMPH # 2.6 x10^3/uL (1.0-4.8); LYMPH % 36 % (24-48); MEAN CORPUSCULAR HEMOGLOBIN 17 pg (25-35); MEAN CORPUSCULAR HGB CONC 28 g/dL (31-37); MEAN CORPUSCULAR VOLUME 61 fL (79-100); MONO # 0.4 x10^3/uL (0.0-1.1); MONO % 5 % (0-9); NEUT % 56 % (31-73); PLATELET COUNT 509 x10^3/uL (140-400); RED BLOOD COUNT 4.96 x10^6/uL (4.30-5.70); RED CELL DISTRIBUTION WIDTH 21.2 % (11.5-14.5); WHITE BLOOD COUNT 7.3 x10^3/uL (4.0-11.0)
--- NOTE | 2020-04-07 11:01 | RAD ---
Examination: CT HEAD WO CONTRAST History: syncope / Comparison/Correlation: None Findings: Axial images of the head were obtained without contrast. Atrophy is present. No intracranial hemorrhage, midline shift, or mass effect. Ventricles are mildly enlarged in size and this may represent volume loss. Bony structures are unremarkable. Impression: No suspicious acute intracranial process. Mild enlargement of ventricles probably representing volume loss. Atrophy is advanced for age. Alternatively, correlate clinically for normal pressure hydrocephalus. Electronically signed by: Gianni Juarez MD (04/07/2020 10:58 AM) [id number]
[2020-04-07 11:02] LABS: CALCIUM 8.6 mg/dL (8.5-10.1); GFR 78.2; POTASSIUM 4.1 mmol/L (3.5-5.1)
[2020-04-07 11:09] LABS: ALBUMIN 3.4 g/dL (3.4-5.0); MAGNESIUM 2.5 mg/dL (1.8-2.4); TOTAL BILIRUBIN 0.5 mg/dL (0.2-1.0); TOTAL PROTEIN 6.8 g/dL (6.4-8.2)
[2020-04-07 11:29] LABS: % BANDS 1 % (0-9); % BASOS 1 % (0-3); % EOS 2 % (0-5); % LYMPHS 7 % (24-48); % MONOS 8 % (0-10); % SEGS 81 % (35-66)
[2020-04-07 11:32] LABS: PLT ESTIMATE INCREASED (ADEQUATE)
[2020-04-07 11:33] LABS: HYPOCHROMIA PRESENT; MICROCYTOSIS PRESENT
[2020-04-07 11:34] LABS: ANISOCYTOSIS PRESENT; OVALOCYTES PRESENT
[2020-04-07 11:35] LABS: TARGET CELLS PRESENT
[2020-04-07 11:36] LABS: TEAR DROP CELLS PRESENT
--- NOTE | 2020-04-07 12:52 | PHYS DOC ---
Past History Past Medical History: A-Fib, Anxiety, Depression, GERD, Hypothyroid, Schizophrenia Additional Past Medical Histor: Hkvzp-Osbef-Mwiqm Dz Past Surgical History: Tonsillectomy, Other Additional Past Surgical Histo: duodenal surg, hernia repair Smoking: Non-smoker Alcohol Use: None Drug Use: None General Adult EDM: Chief Complaint: SYNCOPE HPI: HPI: Patient is a 55-year-old male who called EMS to take him here for evaluation due to generalized weakness. Patient was checked on by his swing driver this morning and he was normal then he called EMS because he not feeling well. Patient did not want to leave his apartment because he was afraid to get evicted. Therefore he did not eat anything this morning. Patient said when he was walking inside the house he feels weak and he feels like he was going to pass out so he called EMS. Patient denies any chest pain, no abdominal pain, no cough, no fever. Review of Systems: Review of Systems: Constitutional: Denies fever or chills Eyes: Denies change in visual acuity HENT: Denies nasal congestion or sore throat Respiratory: Denies cough or shortness of breath Cardiovascular: Denies chest pain or edema GI: Denies abdominal pain, nausea, vomiting, bloody stools or diarrhea : Denies dysuria Musculoskeletal: Denies back pain or joint pain Integument: Denies rash Neurologic: Denies headache, focal weakness or sensory changes. Positive for generalized weakness. Endocrine: Denies polyuria or polydipsia Lymphatic: Denies swollen glands Psychiatric: Denies depression or anxiety Heart Score: Risk Factors: Risk Factors: DM, Current or recent (<one month) smoker, HTN, HLP, family history of CAD, obesity. Risk Scores: Score 0 - 3: 2.5% MACE over next 6 weeks - Discharge Home Score 4 - 6: 20.3% MACE over next 6 weeks - Admit for Clinical Observation Score 7 - 10: 72.7% MACE over next 6 weeks - Early Invasive Strategies Allergies: Allergies: Allergies Coded Allergies Type Severity Reaction Last Updated Verified aspirin Allergy Intermediate bleeding 03/13/20 Yes Physical Exam: PE: Constitutional: Well developed, well nourished, no acute distress, non-toxic appearance. [] HENT: Normocephalic, atraumatic, bilateral external ears normal, oropharynx moist, no oral exudates, nose normal. [] Eyes: PERRLA, EOMI, conjunctiva normal, no discharge. [] Neck: Normal range of motion, no tenderness, supple, no stridor. [] Cardiovascular:Heart rate regular rhythm, no murmur [] Lungs & Thorax: Bilateral breath sounds clear to auscultation [] Abdomen: Bowel sounds normal, soft, no tenderness, no masses, no pulsatile masses. [] Skin: Warm, dry, no erythema, no rash. [] Back: No tenderness, no CVA tenderness. [] Extremities: No tenderness, no cyanosis, no clubbing, ROM intact, no edema. [] Neurologic: Alert and oriented X 3, normal motor function, normal sensory function, no focal deficits noted. [] Psychologic: Affect normal, judgement normal, mood normal. [] Current Patient Data: Labs: Laboratory Tests Test 04/07/20 10:39 White Blood Count 7.3 x10^3/uL (4.0-11.0) Red Blood Count 4.96 x10^6/uL (4.30-5.70) Hemoglobin 8.4 g/dL (13.0-17.5) L Hematocrit 30.3 % (39.0-53.0) L Mean Corpuscular Volume 61 fL (79-100) L Mean Corpuscular Hemoglobin 17 pg (25-35) L Mean Corpuscular Hemoglobin Concent 28 g/dL (31-37) L Red Cell Distribution Width 21.2 % (11.5-14.5) H Platelet Count 509 x10^3/uL (140-400) H Neutrophils (%) (Auto) 56 % (31-73) Lymphocytes (%) (Auto) 36 % (24-48) Monocytes (%) (Auto) 5 % (0-9) Eosinophils (%) (Auto) 3 % (0-3) Basophils (%) (Auto) 1 % (0-3) Neutrophils # (Auto) 4.0 x10^3uL (1.8-7.7) Lymphocytes # (Auto) 2.6 x10^3/uL (1.0-4.8) Monocytes # (Auto) 0.4 x10^3/uL (0.0-1.1) Eosinophils # (Auto) 0.2 x10^3/uL (0.0-0.7) Basophils # (Auto) 0.0 x10^3/uL (0.0-0.2) Segmented Neutrophils % 81 % (35-66) H Band Neutrophils % 1 % (0-9) Lymphocytes % 7 % (24-48) L Monocytes % 8 % (0-10) Eosinophils % 2 % (0-5) Basophils % 1 % (0-3) Platelet Estimate Increased (ADEQUATE) Hypochromasia Present Anisocytosis Present Microcytosis Present Target Cells Present Tear Drop Cells Present Ovalocytes Present Prothrombin Time 11.7 SEC (9.4-11.4) H Prothrombin Time INR 1.1 (0.9-1.1) Activated Partial Thromboplast Time 25 SEC (23-33) Sodium Level 136 mmol/L (136-145) Potassium Level 4.1 mmol/L (3.5-5.1) Chloride Level 102 mmol/L (98-107) Carbon Dioxide Level 25 mmol/L (21-32) Anion Gap 9 (6-14) Blood Urea Nitrogen 17 mg/dL (8-26) Creatinine 1.0 mg/dL (0.7-1.3) Estimated GFR (Cockcroft-Gault) 78.2 BUN/Creatinine Ratio 17 (6-20) Glucose Level 83 mg/dL (70-99) Calcium Level 8.6 mg/dL (8.5-10.1) Magnesium Level 2.5 mg/dL (1.8-2.4) H Total Bilirubin 0.5 mg/dL (0.2-1.0) Aspartate Amino Transferase (AST) 17 U/L (15-37) Alanine Aminotransferase (ALT) 14 U/L (16-63) L Alkaline Phosphatase 98 U/L (46-116) Troponin I Quantitative < 0.017 ng/mL (0-0.055) Total Protein 6.8 g/dL (6.4-8.2) Albumin 3.4 g/dL (3.4-5.0) Albumin/Globulin Ratio 1.0 (1.0-1.7) Vital Signs: Vital Signs Date Time Temp Pulse Resp B/P (MAP) Pulse Ox O2 Delivery O2 Flow Rate FiO2 04/07/20 09:34 98.3 58 16 105/54 (71) 98 Room Air EKG: EKG: EKG was done at 954, heart rate 51 bpm, sinus rhythm, no ST segment elevation. [] Radiology/Procedures: Radiology/Procedures: [][address] [address] IMAGING REPORT Signed PATIENT: ELISA SHARMA AACCOUNT: [id number] : 06/19/1930 LOCATION: ER AGE: 89 SEX: F EXAM STATUS: PRE ER ORD. PHYSICIAN: YANA SANDOVAL DO REASON: soa PROCEDURE: CHEST AP ONLY Examination: CHEST AP ONLY History: soa Comparison: 02/08/2020 AP view of the chest. Findings: AP portable upright frontal view of the chest was obtained. Limited pulmonary inflation. Calcified granuloma involves the right upper lung. No pneumothorax. Limited pulmonary inflation is present. Borderline pulmonary vasculature. Diffuse interstitial thickening of the lung kramer noted. Left basilar interstitial thickening at the costophrenic angle is in particular seen. No dense consolidations. IMPRESSION: Borderline pulmonary vasculature. Interstitial thickening of the lung kramer may represent interstitial edema. No focal dense consolidation. Electronically signed by: Gianni Luciano MD (04/07/2020 10:48 AM) [id number] DICTATED AND SIGNED BY: GIANNI LUCIANO MD DATE: 04/07/20 1048 CC: HEMANT MARTÍNEZ MD; YANA SANDOVAL DO ~ Course & Med Decision Making: Course & Med Decision Making Pertinent Labs and Imaging studies reviewed. (See chart for details) Patient is a 55-year-old man who was evaluated in ER due to general weakness. CT scan head normal, his lab work at baseline. Patient was in no acute distress, will discharge him home. Dragon Disclaimer: Servio Disclaimer: This electronic medical record was generated, in whole or in part, using a voice recognition dictation system. Departure Departure: Impression: Primary Impression: Weakness Additional Impression: Near syncope Disposition: 01 HOME/RESIDENCE PRIOR TO ADM Condition: STABLE Referrals: CRISS POWER MD (PCP) PLEASE CALL YOUR DOCTOR FOR FOLLOW UP ON FRIDAY Patient Instructions: Syncope, Weakness Additional Instructions: Thank you for visiting our Emergency Department. We appreciate you trusting us with your care. If any additional problems come up don't hesitate to return to visit us. Please follow up with your primary care provider so they can plan additional care if needed and know about the problem that you had. If symptoms worsen come back to the Emergency Department. Any concerning symptoms that start such as chest pain, shortness of air, weakness or numbness on one side of the body, running high fevers or any other concerning symptoms return to the ER. YANA SANDOVAL DO Apr 07, 2020 12:52
[2020-04-07 12:55] VITALS: BP 105/55
== END 2020-04-07 13:00 | disposition home or self-care (01) ==
LOC: ER 09:34
DX: R53.1 Weakness (principal); R55 Syncope and collapse; I48.91 Unspecified atrial fibrillation; K21.9 Gastro-esophageal reflux disease without esophagitis; E03.9 Hypothyroidism, unspecified; F20.9 Schizophrenia, unspecified; F41.9 Anxiety disorder, unspecified; F32.9 Major depressive disorder, single episode, unspecified; I78.0 Hereditary hemorrhagic telangiectasia; Z88.6 Allergy status to analgesic agent
CPT/HCPCS: 36415; 70450; 80053; 83735; 84484; 85007; 85025; 85610; 85730; 93005; 99285-25

== ENCOUNTER 2020-04-07 23:22 | Emergency (ER) | payer OTHER ==
[~2020-04-07] VITALS: Ht 180.3 cm; Wt 64.2 kg
[2020-04-07 23:46] VITALS: BP 132/68
--- NOTE | 2020-04-07 23:47 | PHYS DOC ---
Past History Past Medical History: A-Fib, Anxiety, Depression, GERD, Hypothyroid, Schizophrenia Additional Past Medical Histor: Vqcph-Nuzbs-Hkvxp Dz Past Surgical History: Tonsillectomy, Other Additional Past Surgical Histo: duodenal surg, hernia repair Smoking: Non-smoker Alcohol Use: None Drug Use: None General Adult EDM: Chief Complaint: NOSEBLEED HPI: HPI: ".. The voices told me to come in.. I was here earlier.. for the nose bleed.. It not bleeding now.. I got thrown out of my apt... I had not been paying my rent.. .. my nose started bleeding.. again... I not getting my schizophrenia shots any more..." Patient is a 55 year old male schizophrenic who presents with complaints of epistaxis. 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 Patient denies any trauma. Has been blowing nose hard. Currently there is no active bleeding. Does have clot anterior Kiesselbach area. No septal hematoma. No posterior pharynx bleeding. No history of travel out of [facility]. Denies immunosuppression. No history of fever or chills. Review of Systems: Review of Systems: Constitutional: Denies fever or chills Eyes: Denies change in visual acuity HENT: Complains of epistaxis Respiratory: Denies cough or shortness of breath Cardiovascular: Denies chest pain or edema GI: Denies abdominal pain, nausea, vomiting, bloody stools or diarrhea : Denies dysuria Musculoskeletal: Denies back pain or joint pain Integument: Denies rash Neurologic: Denies headache, focal weakness or sensory changes Endocrine: Denies polyuria or polydipsia Lymphatic: Denies swollen glands Psychiatric: Complains of hallucinations-auditory Heart Score: Risk Factors: Risk Factors: DM, Current or recent (<one month) smoker, HTN, HLP, family history of CAD, obesity. Risk Scores: Score 0 - 3: 2.5% MACE over next 6 weeks - Discharge Home Score 4 - 6: 20.3% MACE over next 6 weeks - Admit for Clinical Observation Score 7 - 10: 72.7% MACE over next 6 weeks - Early Invasive Strategies Family History: Family History: Noncontributory Current Medications: Current Meds: See nursing for home meds Allergies: Allergies: Allergies Coded Allergies Type Severity Reaction Last Updated Verified aspirin Allergy Intermediate bleeding 03/13/20 Yes Physical Exam: PE: Constitutional:no acute distress, non-toxic appearance. [] HENT: Normocephalic, atraumatic, bilateral external ears normal, oropharynx moist, no oral exudates, nose clot over Kiesselbach area. Vascular changes upper lip Eyes: PERRLA, EOMI, conjunctiva normal, no discharge. [] Neck: Normal range of motion, no tenderness, supple, no stridor. [] Cardiovascular:Heart rate regular rhythm, no murmur [] Lungs & Thorax: Bilateral breath sounds equal apex auscultation [] Abdomen: Bowel sounds normal, soft, no tenderness, no masses, no pulsatile masses. Old surgical scars. Mild distention. Skin: Warm, dry, no erythema, no rash. [] Back: No tenderness, no CVA tenderness. [] Extremities: No tenderness, no cyanosis, no clubbing, ROM intact, no edema. [] Neurologic: Alert and oriented X 3, normal motor function, normal sensory function, no focal deficits noted. [] Psychologic: Affect anxious, judgement normal, mood normal. Hearing voices EKG: EKG: [] Radiology/Procedures: Radiology/Procedures: [] Course & Med Decision Making: Course & Med Decision Making Pertinent Labs and Imaging studies reviewed. (See chart for details) Do not blow nose. Use small amount of antibiotic ointment 4 x day. You may sniff. [facility] Recommend you restart your psych. meds. Impression: 1. Epistaxis 2. Schizophrenia-with hallucinations auditory 3. Osler, Rosie Kern Dz [] Eliazar Disclaimer: Eliazar Disclaimer: This electronic medical record was generated, in whole or in part, using a voice recognition dictation system. Departure Departure: Disposition: 01 HOME/RESIDENCE PRIOR TO ADM Condition: STABLE Referrals: CRISS POWER MD (PCP) Eliazar Disclaimer This chart was dictated in whole or in part using Voice Recognition software in a busy, high-work load, and often noisy Emergency Department environment. It may contain unintended and wholly unrecognized errors or omissions. KENDELL STEWART MD Apr 07, 2020 23:47
[2020-04-08] MEDS ORDERED: BACITRACIN ZINC TOPICAL OINT PACKET. TP ONE (00:15)
== END 2020-04-08 00:23 | disposition home or self-care (01) ==
LOC: ER 23:22
DX: R04.0 Epistaxis (principal); I78.0 Hereditary hemorrhagic telangiectasia; I48.91 Unspecified atrial fibrillation; K21.9 Gastro-esophageal reflux disease without esophagitis; E03.9 Hypothyroidism, unspecified; F20.9 Schizophrenia, unspecified; Z88.6 Allergy status to analgesic agent
CPT/HCPCS: 99282

== ENCOUNTER 2020-04-08 05:09 | Emergency (ER) | payer OTHER ==
[~2020-04-08] VITALS: Ht 180.3 cm; Wt 64.2 kg
--- NOTE | 2020-04-08 05:12 | PHYS DOC ---
Past History Past Medical History: A-Fib, Anxiety, Constipation, Depression, GERD, Hypothyroid, Schizophrenia Additional Past Medical Histor: Jpnix-Rtrbt-Jqbna Dz (KENDELL SILVA MD) Past Surgical History: Tonsillectomy, Other Additional Past Surgical Histo: duodenal surg, hernia repair (KENDELL SILVA MD) Smoking: Non-smoker Alcohol Use: None Drug Use: None (KENDELL SILVA MD) General Adult HPI: HPI: "...My stomach hurts.. I ve had three black stools.. since I was here last.. carlos hurting all over.. upper and around my belly button area.. the voices.. said I needed to come back.. " Patient is a 55 year old male Schizophrenic who presents with above hx and complaints abdomen pain with 3 episodes of diarrhea. Patient denies any intake of food. No recent travel outside cancer area. No fever ill contacts. No history of depression. Patient does have history of previous GI bleeds. Has had previous surgeries duodenal resection and hernia repair. 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 Patient recently stopped going to the counseling center and has not received any injections for his chronic schizophrenia. Previously was on Abilify injections monthly.. Patient recently removed from his apartment because of nonpayment. Patient does not smoke. Patient does not use illicit drugs. Patient does not drink alcohol. Patient has disability secondary to schizophrenia. Patient has long history of noncompliance with medical regimens. Patient currently follows with Dr. Walls. (KENDELL SILVA MD) Review of Systems: Review of Systems: Constitutional: Denies fever or chills Eyes: Denies change in visual acuity HENT: Denies nasal congestion or sore throat Respiratory: Denies cough or shortness of breath Cardiovascular: Denies chest pain or edema GI: Complaints of abdominal pain, nausea, and diarrhea : Denies dysuria Musculoskeletal: Denies back pain or joint pain Integument: Denies rash Neurologic: Denies headache, focal weakness or sensory changes Endocrine: Denies polyuria or polydipsia Lymphatic: Denies swollen glands Psychiatric: Hallucinations and anxiety (KENDELL SILVA MD) Heart Score: Risk Factors: Risk Factors: DM, Current or recent (<one month) smoker, HTN, HLP, family history of CAD, obesity. Risk Scores: Score 0 - 3: 2.5% MACE over next 6 weeks - Discharge Home Score 4 - 6: 20.3% MACE over next 6 weeks - Admit for Clinical Observation Score 7 - 10: 72.7% MACE over next 6 weeks - Early Invasive Strategies (KENDELL SILVA MD) Family History: Family History: Has 2 brothers 1 older 1 younger. Patient states he does not talk to them because the voices told her not to talk to him anymore last seen his father and 1980s. Mother at 66 due to diverticulosis. (KENDELL SILVA MD) Current Medications: Current Meds: See nursing for home meds (KENDELL SILVA MD) Allergies: Allergies: Allergies Coded Allergies Type Severity Reaction Last Updated Verified aspirin Allergy Intermediate bleeding 03/13/20 Yes (KENDELL SILVA MD) Physical Exam: PE: Constitutional: Moderate acute distress, non-toxic appearance. [] HENT: Normocephalic, atraumatic, bilateral external ears normal, oropharynx dry, no oral exudates, nose normal. [] Eyes: PERRLA, EOMI, conjunctiva pale, no discharge. [] Neck: Normal range of motion, no tenderness, supple, no stridor. [] Cardiovascular:Heart rate regular rhythm, no murmur [] Lungs & Thorax: Bilateral breath sounds equal at apex auscultation [] Abdomen: Bowel sounds hyperactive, soft, generalized tenderness, some localization to right upper quadrant and periumbilical scar, no masses, no pulsatile masses. Old surgical scars. Circumcised male testicles descended. No stool in the vault, dark color. Skin: Warm, dry, hand and foot erythema, no rash. [] Back: No tenderness, no CVA tenderness. [] Extremities: No tenderness, no cyanosis, no clubbing, ROM intact, no edema. No psoas sign. Neurologic: Alert and oriented X 3, moves all extremities on request, does have distal sensory,, no focal deficits noted. [] Psychologic: Affect anxious, judgement normal, mood normal. Hearing voices. No suicidal or homicidal ideation (KENDELL SILVA MD) EKG: EKG: [] (KENDELL SILVA MD) Radiology/Procedures: Radiology/Procedures: [] (KENDELL SILVA MD) Course & Med Decision Making: Course & Med Decision Making Pertinent Labs and Imaging studies reviewed. (See chart for details) Patient endorsed to at shift change. Labs pending. [] (KENDELL SILVA MD) Course & Med Decision Making Assumed care of patient at checkout from Dr. Silva. At checkout work-up was pending. Patient presented for concerns of dark stools. She does have a history of GI bleeds. Patient was seen here several times in the last 24 hours for various complaints. He has a history of paranoid schizophrenia which is likely why we are seeing him so often. Patient had lab work done earlier within the last 24 hours. He has had a significant change in his hemoglobin. This suggests that he is having a GI bleed at this time. He is also Hemoccult positive. He has a history of GI bleeds. Patient will be transferred to [facility] for evaluation by a GI specialist which is not available here at [facility]. Patient is amendable to transfer. Discussed the case with Dr. Baeza the on-call hospitalist at [facility]. He agrees to accept the patient at this time. At this time patient is stable for transfer and does not have any active melena or bleeding (MEI SHRESTHA MD) Thereseon Disclaimer: Eliazar Disclaimer: This electronic medical record was generated, in whole or in part, using a voice recognition dictation system. (KENDELL SILVA MD) Departure Departure: Impression: Primary Impression: GI bleed Additional Impressions: Schizophrenia Rendu Osler Kern syndrome Weakness Auditory hallucinations Disposition: XFER SHT-TRM HOSP Condition: STABLE Referrals: CRSIS WALLS MD (PCP) Eliazar Disclaimer This chart was dictated in whole or in part using Voice Recognition software in a busy, high-work load, and often noisy Emergency Department environment. It may contain unintended and wholly unrecognized errors or omissions. (KENDELL SILVA MD) KENDELL SILVA MD Apr 08, 2020 05:12 MEI SHRESTHA MD Apr 08, 2020 07:59
[2020-04-08] MEDS ORDERED: IV RINGERS SOLUTION,LACTATED 1,000 ML IV SCH (05:29)
[2020-04-08] MEDS ORDERED: ONDANSETRON PF 4 MG/2 ML VIAL. IVP ONE (05:30)
[2020-04-08] MEDS ORDERED: FAMOTIDINE 20 MG/2 ML VIAL IVP ONE (05:30)
--- NOTE | 2020-04-08 06:08 | RAD ---
Acute abdominal series: Reason for examination: Pain. Comparison is made to previous studies dated 02/03/2020 and 10/14/2018. The heart size is normal. Mediastinum is unremarkable. Lung kramer show a subtle nodule in the left upper lobe measuring approximately 4 mm in size as well as a subtle nodule in the right upper lobe measuring approximately 9 mm in size. There continues to be a nodule superimposed over the anterior seventh rib in the right lower lobe measuring approximately 1 cm in size. No other infiltrates or pleural effusions are seen. No acute bony abnormalities are seen. There is no gross organomegaly. Psoas muscles are symmetric. The bowel gas pattern is nonspecific and nonobstructive with a large amount of gas and fecal material in the colon. Small calcifications seen in the left pelvis which probably represents a phlebolith. No acute bony abnormalities are seen. IMPRESSION: Faint nodular densities in the upper lobes bilaterally. Recommend clinical correlation and follow-up. Continued presence of a 1 cm nodule at the right lung base. Nonspecific nonobstructive bowel gas pattern with a large amount of fecal material and air in colon. Electronically signed by: Geneva Holt MD (04/08/2020 6:05 AM) EDER
--- NOTE | 2020-04-08 06:26 | EKG ---
[address] [address] Test Date: 2020-04-08 Test Time: 06:09:48 Pat Name: BOLIVAR JEFF Department: Room: Gender: M Piping Drafter: VIANCA : 1965 Requested By: KENDELL STEWART Order Number: [id number] Reading MD: Measurements Intervals [place] Rate: 62 P: 17 DC: 148 QRS: 63 QRSD: 86 T: 67 QT: 386 QTc: 394 Interpretive Statements SINUS RHYTHM ATRIAL PREMATURE COMPLEX(ES) INCOMPLETE RIGHT BUNDLE BRANCH BLOCK OTHERWISE NORMAL ECG RI6.02 No previous ECG available for comparison
[2020-04-08 06:52] LABS: BASO # 0.1 x10^3/uL (0.0-0.2); BASO % 1 % (0-3); EOS # 0.2 x10^3/uL (0.0-0.7); EOS % 4 % (0-3); HEMATOCRIT 27.2 % (39.0-53.0); HEMOGLOBIN 7.6 g/dL (13.0-17.5); LYMPH # 2.3 x10^3/uL (1.0-4.8); LYMPH % 40 % (24-48); MEAN CORPUSCULAR HEMOGLOBIN 17 pg (25-35); MEAN CORPUSCULAR HGB CONC 28 g/dL (31-37); MEAN CORPUSCULAR VOLUME 60 fL (79-100); MONO # 0.3 x10^3/uL (0.0-1.1); MONO % 6 % (0-9); NEUT # 2.9 x10^3uL (1.8-7.7); NEUT % 49 % (31-73); PLATELET COUNT 482 x10^3/uL (140-400); RED BLOOD COUNT 4.54 x10^6/uL (4.30-5.70); RED CELL DISTRIBUTION WIDTH 21.2 % (11.5-14.5); WHITE BLOOD COUNT 5.9 x10^3/uL (4.0-11.0)
[2020-04-08 07:07] LABS: CALCIUM 8.7 mg/dL (8.5-10.1); GFR 78.2; POTASSIUM 4.1 mmol/L (3.5-5.1)
[2020-04-08 07:11] LABS: FECAL OB PT POSITIVE (NEG)
[2020-04-08 07:13] LABS: ALBUMIN 3.3 g/dL (3.4-5.0); DIRECT BILIRUBIN 0.1 mg/dL (0.0-0.2); TOTAL BILIRUBIN 0.3 mg/dL (0.2-1.0); TOTAL PROTEIN 6.5 g/dL (6.4-8.2)
[2020-04-08 07:54] VITALS: BP 112/68
[2020-04-08 09:19] LABS: HYPOCHROMIA MOD
[2020-04-08 09:20] LABS: ANISOCYTOSIS MOD; MICROCYTOSIS MOD; OVALOCYTES PRESENT; TEAR DROP CELLS PRESENT
[2020-04-08 09:21] LABS: PLT ESTIMATE INCREASED (ADEQUATE); POLYCHROMASIA PRESENT
[2020-04-08 09:22] LABS: POIKILOCYTOSIS MOD
== END 2020-04-08 09:47 | disposition short-term general hospital (02) ==
LOC: ER 05:09
DX: K92.2 Gastrointestinal hemorrhage, unspecified (principal); F20.9 Schizophrenia, unspecified; I78.0 Hereditary hemorrhagic telangiectasia; R44.0 Auditory hallucinations; R53.1 Weakness; I48.91 Unspecified atrial fibrillation; K21.9 Gastro-esophageal reflux disease without esophagitis; E03.9 Hypothyroidism, unspecified; F41.9 Anxiety disorder, unspecified; F31.9 Bipolar disorder, unspecified; Z88.6 Allergy status to analgesic agent
CPT/HCPCS: 36415; 74022; 80048; 80076; 82150; 82274; 82550; 83690; 84484; 85025; 85610; 85730; 86850; 86900; 86901; 93005; 96361; 96374; 96375; 99285; J2405; J3490; J7120

== ENCOUNTER 2020-05-25 20:20 | Emergency (ER) | payer OTHER ==
[~2020-05-25] VITALS: Ht 180.3 cm; Wt 64.2 kg
[2020-05-25 20:33] VITALS: BP 122/63
[2020-05-25] MEDS ORDERED: MUPI15CR8 TP (20:55)
[2020-05-25] MEDS ORDERED: CEPH-264 PO (20:55)
--- NOTE | 2020-05-25 20:56 | PHYS DOC ---
Past History Past Medical History: A-Fib, Anxiety, Constipation, Depression, GERD, Hypothyroid, Schizophrenia Additional Past Medical Histor: Tzuse-Chrlt-Nqkya Dz (WANG REID APRN) Past Surgical History: Tonsillectomy, Other Additional Past Surgical Histo: duodenal surg, hernia repair (WANG REID APRN) Smoking: Non-smoker Alcohol Use: None Drug Use: None (WANG REID APRN) Adult General Chief Complaint Chief Complaint: ANKLE PROBLEM [facility] HPI Patient is a 55-year-old male presents to the emergency room for evaluation of swelling and redness to the right foot. He denies any falls or injuries to cause the symptoms to his foot and ankle. He states it has been ongoing for at least the past week. He has abrasions to the top of both of his feet which he states is caused by him scratching because "they are itchy". He denies fever. He is well-known to this department, he walks everywhere that he goes does not utilize a vehicle. Patient ambulates in ER unassisted and without altered gait tonight. (WANG REID APRN) Review of Systems Review of Systems Constitutional: Denies fever or chills [] Eyes: Denies change in visual acuity, redness, or eye pain [] HENT: Denies nasal congestion or sore throat [] Respiratory: Denies cough or shortness of breath [] Cardiovascular: No additional information not addressed in HPI [] GI: Denies abdominal pain, nausea, vomiting, bloody stools or diarrhea [] : Denies dysuria or hematuria [] Musculoskeletal: Denies back pain or joint pain [] Integument: Redness to right foot, abrasions to both feet [] Neurologic: Denies headache, focal weakness or sensory changes [] Endocrine: Denies polyuria or polydipsia [] All other systems were reviewed and found to be within normal limits, except as documented in this note. (WANG REID APRN) Allergies Allergies Allergies Coded Allergies Type Severity Reaction Last Updated Verified aspirin Allergy Intermediate bleeding 03/13/20 Yes (WANG REID APRN) Physical Exam Physical Exam Constitutional: Well developed, well nourished, no acute distress, non-toxic appearance. [] HENT: Normocephalic, atraumatic, bilateral external ears normal, oropharynx moist, no oral exudates, nose normal. [] Eyes: PERRLA, EOMI, conjunctiva normal, no discharge. [] Skin: Warm, dry, no erythema, no rash. [] Extremities: Right foot slightly erythematous and edematous, abrasion on dorsal aspect of foot, full range of motion to the toes and ankle. Right ankle nonpitting edema. Left foot with abrasion on dorsal aspect, full range of motion to toes and ankle, no swelling or redness. [] Neurologic: Alert and oriented X 3, normal motor function, normal sensory function, no focal deficits noted. [] Psychologic: Affect normal, judgement normal, mood normal. [] (WANG REID APRN) Current Patient Data Vital Signs Vital Signs Date Time Temp Pulse Resp B/P (MAP) Pulse Ox O2 Delivery O2 Flow Rate FiO2 05/25/20 20:33 97.1 70 18 122/63 (82) 97 Room Air (WANG REID APRN) EKG EKG [] (WANG REID APRN) Radiology/Procedures Radiology/Procedures [] (WANG REID APRN) Heart Score Risk Factors: Risk Factors: DM, Current or recent (<one month) smoker, HTN, HLP, family history of CAD, obesity. Risk Scores: Risk Factors: DM, Current or recent (<one month) smoker, HTN, HLP, family his tory of CAD, obesity. (WANG REID APRN) Course & Med Decision Making Course & Med Decision Making Pertinent Labs and Imaging studies reviewed. (See chart for details) [Patient with cellulitis to the right foot, vital signs stable, patient afebrile and nontoxic in appearance, started on antibiotics and Bactroban ointment to the abrasions, follow-up with primary care doctor in 2 to 3 days and return to ER for new or worsening symptoms.] (WANG REID APRN) Course & Med Decision Making I have reviewed the PA/LICENSED OPTICAL DISPENSER's note and plan of care. I was available for consultation as needed during the patient's visit in the emergency department. I agree with the clinical impression, plan, and disposition. (CRUZ BHATT DO) Eliazar Disclaimer Eliazar Disclaimer This electronic medical record was generated, in whole or in part, using a voice recognition dictation system. (WANG REID APRN) Departure Departure: Impression: Primary Impression: Lower extremity cellulitis Additional Impression: Abrasion Disposition: 01 DC HOME SELF CARE/HOMELESS Condition: STABLE Referrals: CRISS POWER MD (PCP) Patient Instructions: Cellulitis Scripts Mupirocin Calcium (MUPIROCIN) 15 Gm Cream..g. 1 SHANNON TP TID for ABRASIONS for 10 Days, #30 GM 0 Refills Prov: WANG REID APRN 05/25/20 Cephalexin (KEFLEX) 500 Mg Capsule 500 MG PO QID for CELLULITIS for 10 Days, #40 CAP Prov: WANG REID APRN 05/25/20 Problem Qualifiers Primary Impression: Lower extremity cellulitis Laterality: right Qualified Codes: L03.115 - Cellulitis of right lower limb WANG REID APRN May 25, 2020 20:56 CRUZ BHATT DO May 27, 2020 21:18
[2020-05-25] MEDS ORDERED: CEPHALEXIN 250 MG CAPSULE PO ONE (21:30)
[2020-05-25] MEDS ORDERED: MUPIROCIN 2% TOPICAL OINTMENT 22GM TUBE. TP ONE (21:30)
== END 2020-05-25 21:08 | disposition home or self-care (01) ==
LOC: ER 20:20
DX: S90.811A Abrasion, right foot, initial encounter (principal); L03.115 Cellulitis of right lower limb; I48.91 Unspecified atrial fibrillation; K21.9 Gastro-esophageal reflux disease without esophagitis; E03.9 Hypothyroidism, unspecified; F20.9 Schizophrenia, unspecified; Z88.6 Allergy status to analgesic agent; W50.4XXA Accidental scratch by another person, initial encounter; Y93.89 Activity, other specified; Y92.89 Other specified places as the place of occurrence of the external cause; Y99.8 Other external cause status
CPT/HCPCS: 99283

== ENCOUNTER 2020-06-27 11:47 | Emergency (ER) | payer OTHER ==
[~2020-06-27] VITALS: Ht 180.3 cm; Wt 64.2 kg
[~2020-06-27 11:47] MED LIST changes: +MUPI15CR8 TP
[2020-06-27] MEDS ORDERED: NITROGLYCERIN SUBLINGUAL 0.4 MG BOTTLE OF 25. SL PRN (12:00)
--- NOTE | 2020-06-27 12:07 | PHYS DOC ---
Past History Past Medical History: A-Fib, Anxiety, Constipation, Depression, GERD, Hypothyroid, Schizophrenia Additional Past Medical Histor: Yshmj-Uotfl-Vzwck Dz Past Surgical History: Tonsillectomy, Other Additional Past Surgical Histo: duodenal surg, hernia repair Smoking: Non-smoker Alcohol Use: None Drug Use: None Adult General Chief Complaint Chief Complaint: MECHANICAL FALL HPI HPI Patient is a 55-year-old male who presents via EMS for fall and subsequent syncope. Patient with history of Erntj-Ydzwa-Navzi suffered a mechanical fall when he tripped over his shoes untied shoelace yesterday landing on his left hip. He did not hit his head, no loss of consciousness reported but does admit left hip pain. Patient who walks with a cane typically reports ongoing left hip pain today and states he passed out shortly after calling EMS for transport to our facility for evaluation of pain. States he suffered a syncopal episode, no prodromal symptoms, no fever, no URI-like symptoms, no chest pain or shortness of breath, it is unknown whether he hit his head, states he does have mild headache and neck pain at this time in addition to his left hip pain. He has not taken anything for pain. He no obvious changes in motor or sensory function Review of Systems Review of Systems Fourteen body systems of review of systems have been reviewed. See HPI for pertinent positives and negative responses, other yadav all other systems are negative, non-pertinent or non-contributory Current Medications Current Medications Current Medications Medications (Trade) Dose Ordered Sig/Tomasz Start Time Stop Time Status Last Admin Dose Admin Nitroglycerin (Nitrostat) 0.4 mg PRN Q5MIN PRN 06/27/20 12:00 Allergies Allergies Allergies Coded Allergies Type Severity Reaction Last Updated Verified aspirin Allergy Intermediate bleeding 06/27/20 Yes Physical Exam Physical Exam Constitutional: Pt is oriented to person, place, and time. Pt appears well-developed and well-nourished. HEENT: Head: Normocephalic and atraumatic. External ears unremarkable, negative sawyer sign Conjunctivae and EOM are normal. Pupils are equal, round, and reactive to light. Oropharynx is clear and moist. No hematomas or lacerations or abrasions to face or scalp OP clear, no blood, no malocclusion, dentition intact Nares clear, no nasal septal hematoma Midface stable Neck: C-spine midline and paracervical muscles tender, no step-offs Cardiovascular: Normal rate, regular rhythm and normal heart sounds. Pulmonary/Chest: Effort normal and breath sounds normal. No respiratory distress. No wheezes. CTA bilaterally Abdominal: Soft. Bowel sounds are normal. Pt exhibits no distension. There is no tenderness. Musculoskeletal: No bony tenderness to extremities, no deformities, full ROM extremities Chest wall stable Pelvis stable and non-tender No vertebral TTP and spine without stepoffs Neurological: Pt is alert and oriented to person, place, and time. Moving all extremities willfully, able to wiggle all fingers and toes Cranial nerves II through XII intact Gait unremarkable and at baseline with assistive walking cane alert and oriented x 3 Sensation grossly intact Skin: Skin is warm and dry. No abrasions, no lacerations Psychiatric: Flat affect Current Patient Data Vital Signs Vital Signs Date Time Temp Pulse Resp B/P (MAP) Pulse Ox O2 Delivery O2 Flow Rate FiO2 06/27/20 11:47 97.4 71 18 105/50 (68) 100 Lab Results Laboratory Tests Test 06/27/20 13:09 White Blood Count 8.8 x10^3/uL (4.0-11.0) Red Blood Count 5.57 x10^6/uL (4.30-5.70) Hemoglobin 9.8 g/dL (13.0-17.5) Hematocrit 34.5 % (39.0-53.0) Mean Corpuscular Volume 62 fL (79-100) Mean Corpuscular Hemoglobin 18 pg (25-35) Mean Corpuscular Hemoglobin Concent 28 g/dL (31-37) Red Cell Distribution Width 20.7 % (11.5-14.5) Platelet Count 523 x10^3/uL (140-400) Neutrophils (%) (Auto) 71 % (31-73) Lymphocytes (%) (Auto) 23 % (24-48) Monocytes (%) (Auto) 4 % (0-9) Eosinophils (%) (Auto) 2 % (0-3) Basophils (%) (Auto) 1 % (0-3) Neutrophils # (Auto) 6.2 x10^3uL (1.8-7.7) Lymphocytes # (Auto) 2.0 x10^3/uL (1.0-4.8) Monocytes # (Auto) 0.4 x10^3/uL (0.0-1.1) Eosinophils # (Auto) 0.1 x10^3/uL (0.0-0.7) Basophils # (Auto) 0.0 x10^3/uL (0.0-0.2) Segmented Neutrophils % 85 % (35-66) Band Neutrophils % 4 % (0-9) Lymphocytes % 2 % (24-48) Monocytes % 6 % (0-10) Eosinophils % 2 % (0-5) Basophils % 1 % (0-3) Platelet Estimate Increased (ADEQUATE) Polychromasia Present Hypochromasia Mod Anisocytosis Mod Microcytosis Mod Tear Drop Cells Occ Ovalocytes Few Prothrombin Time 11.7 SEC (9.4-11.4) Prothromb Time International Ratio 1.1 (0.9-1.1) Activated Partial Thromboplast Time 27 SEC (23-33) Sodium Level 135 mmol/L (136-145) Potassium Level 4.1 mmol/L (3.5-5.1) Chloride Level 101 mmol/L (98-107) Carbon Dioxide Level 27 mmol/L (21-32) Anion Gap 7 (6-14) Blood Urea Nitrogen 18 mg/dL (8-26) Creatinine 1.2 mg/dL (0.7-1.3) Estimated GFR (Cockcroft-Gault) 63.3 BUN/Creatinine Ratio 15 (6-20) Glucose Level 118 mg/dL (70-99) Calcium Level 8.8 mg/dL (8.5-10.1) Total Bilirubin 0.6 mg/dL (0.2-1.0) Aspartate Amino Transf (AST/SGOT) 17 U/L (15-37) Alanine Aminotransferase (ALT/SGPT) 17 U/L (16-63) Alkaline Phosphatase 116 U/L (46-116) Troponin I Quantitative < 0.017 ng/mL (0-0.055) Total Protein 8.0 g/dL (6.4-8.2) Albumin 4.1 g/dL (3.4-5.0) Albumin/Globulin Ratio 1.1 (1.0-1.7) EKG EKG EKG ordered and interpreted by myself at 1237 hrs. as sinus rhythm at 67 bpm, unremarkable intervals, no axis deviation, no obvious ischemic findings, no STEMI Radiology/Procedures Radiology/Procedures XR CHEST 1V 06/27/2020 12:07 PM INDICATION: Syncope COMPARISON: 02/03/2020 TECHNIQUE: Portable frontal view of the chest is provided. FINDINGS: The cardiomediastinal silhouette is within normal limits. Lungs are clear. There are no significant pleural effusions. There is no pulmonary vascular congestion. No pneumothorax. No suspicious osseous abnormality. IMPRESSION: There is no acute cardiopulmonary process. Electronically signed by: Caroline Kelly MD (06/27/2020 12:33 PM) [facility] XR BILATERAL HIP (WITH OR WITHOUT PELVIS) LEFT 2 VIEWS 06/27/2020 12:07 PM INDICATION: Syncope COMPARISON: None available. TECHNIQUE: AP view the pelvis and 2 dedicated views the left hip are provided. FINDINGS/ IMPRESSION: There is no acute fracture or dislocation. Joint spaces are maintained. There is decreased femoral head neck offset involving the femora bilaterally as may be seen with femoral acetabular impingement. Bone mineralization is within normal limits. Regional soft tissues are within normal limits. There is no soft tissue gas or osseous erosion. No radiopaque foreign body. Electronically signed by: Caroline Kelly MD (06/27/2020 12:34 PM) LITA CT head and cervical spine without contrast 06/27/2020 12:07 PM INDICATION: Syncope, history of Pqvfj-Rlmin-Xaule COMPARISON: CT head 04/07/2020 TECHNIQUE: Multiple axial CT images of the head were obtained from skull base through the vertex without intravenous contrast. Multiple axial CT images of the cervical spine were obtained without intravenous contrast. Coronal and sagittal reformats are provided. FINDINGS: Head: Ventricles, sulci and basal cisterns are within normal limits. There is no hydrocephalus. Vargas-white matter differentiation is normal. There is no acute intracranial hemorrhage. There is no mass, mass effect or midline shift. There is a remote lacunar infarct in the left cerebellum. There is dilated periv ascular space in inferior left basal ganglia. Visualized portions of the orbits are normal. Paranasal sinuses are well aerated. Mastoid air cells are well aerated. Scalp and calvaria are normal. Cervical spine: Alignment of the cervical spine is normal. Skull base is intact. Craniocervical junction is normal in appearance. Atlantoaxial articulation is normal. Vertebral body heights are maintained without evidence for acute fracture. There is a posterior disc osteophyte complex at C5-C6 with mild facet arthropathy and mild to moderate uncovertebral joint disease, however. Mild bilateral neuroforaminal stenosis. No significant spinal canal stenosis. There is no prevertebral soft tissue swelling. Thyroid gland is normal in appearance. Visualized portions of the lung apices are normal without evidence for suspicious pulmonary nodule or infiltrate. IMPRESSION: 1. No acute intracranial hemorrhage. Remote lacunar infarct in left cerebellum. 2. No acute fracture or malalignment of the cervical spine. Electronically signed by: Caroline Kelly MD (06/27/2020 12:45 PM) [facility] Heart Score HEART Score for Chest Pain: HEART Score for Chest Pain Response (Comments) Value History Slighlty/Non-Suspicious 0 ECG Normal 0 Age >45 - < 65 1 Risk Factors 1 or 2 Risk Factors 1 Troponin < Normal Limit 0 Total 2 Risk Factors: Risk Factors: DM, Current or recent (<one month) smoker, HTN, HLP, family history of CAD, obesity. Risk Scores: Risk Factors: DM, Current or recent (<one month) smoker, HTN, HLP, family history of CAD, obesity. Course & Med Decision Making Course & Med Decision Making Discussed with the patient all findings and diagnostic testing. I discussed most likely diagnosis of left hip contusion status post fall. Patient's reported history of syncope is atypical, I do not feel further ER diagnostic work-up and/or intervention is indicated. I did offer cardiac observation to patient but he declined. As such, I stressed need for close outpatient follow-up to review today's ER visit. I discussed need for ongoing supportive care for his likely musculoskeletal pains. Strict return precautions were also discussed at length with good understanding by patient. Patient voiced understanding and agreement with the plan. Patient knows to come back for repeat evaluation if concerning signs or symptoms present prior to outpatient follow-up. Hemodynamically stable, ambulatory and well-appearing at time of disposition. Dragon Disclaimer Dragon Disclaimer This electronic medical record was generated, in whole or in part, using a voice recognition dictation system. Departure Departure: Impression: Primary Impression: Fall Additional Impressions: Left hip pain Chronic schizophrenia Rendu Osler Kern syndrome Disposition: 01 DC HOME SELF CARE/HOMELESS Condition: STABLE Referrals: CRISS POWER MD (PCP) Patient Instructions: Contusion, RICE - Routine Care for Injuries Additional Instructions: You were evaluated in the Emergency Department today for left hip pain. Your evaluation suggests no acute abnormalities which require further intervention at this time. Your pain is most likely due to to a musculoskeletal cause that should improve with supportive care. - Move around as tolerated but avoiding heavy lifting. ``Bed rest is not recommended nor is it the best treatment for low back pain. - Medications will help control your discomfort: - -Ibuprofen (800 mg every 8 hours for pain) with food. - -Tylenol - Do not drink alcohol, drive a car, operate machinery, or get up on ladders or heights when taking any prescribed pain medications. - Do not drive home if you received prescribed pain medications here in the ED. Return to the ED immediately if you develop any of the following problems: - Leaking urine or difficulty urinating; - Inability to control your bowels; - New numbness or weakness in your legs or numbness between your legs; - Inability to walk - Fever Problem Qualifiers CRUZ BHATT DO Jun 27, 2020 12:07
--- NOTE | 2020-06-27 12:36 | RAD ---
XR CHEST 1V 06/27/2020 12:07 PM INDICATION: Syncope COMPARISON: 02/03/2020 TECHNIQUE: Portable frontal view of the chest is provided. FINDINGS: The cardiomediastinal silhouette is within normal limits. Lungs are clear. There are no significant pleural effusions. There is no pulmonary vascular congestion. No pneumothora x. No suspicious osseous abnormality. IMPRESSION: There is no acute cardiopulmonary process. Electronically signed by: Caroline Kelly MD (06/27/2020 12:33 PM) [facility]
--- NOTE | 2020-06-27 12:37 | RAD ---
XR BILATERAL HIP (WITH OR WITHOUT PELVIS) LEFT 2 VIEWS 06/27/2020 12:07 PM INDICATION: Syncope COMPARISON: None available. TECHNIQUE: AP view the pelvis and 2 dedicated views the left hip are provided. FINDINGS/ IMPRESSION: There is no acute fracture or dislocation. Joint spaces are maintained. There is decreased femoral he ad neck offset involving the femora bilaterally as may be seen with femoral acetabular impingement. B one mineralization is within normal limits. Regional soft tissues are within normal limits. There is no soft tissue gas or osseous erosion. No radiopaque foreign body. Electronically signed by: Caroline Kelly MD (06/27/2020 12:34 PM) [facility]
--- NOTE | 2020-06-27 12:47 | RAD ---
PQRS Compliance Statement: One or more of the following individualized dose reduction techniques were utilized for this examinat ion: 1. Automated exposure control 2. Adjustment of the mA and/or kV according to patient size 3. Use of iterative reconstruction technique CT head and cervical spine without contrast 06/27/2020 12:07 PM INDICATION: Syncope, history of Xccwk-Ejsox-Ytftk COMPARISON: CT head 04/07/2020 TECHNIQUE: Multiple axial CT images of the head were obtained from skull base through the vertex with out intravenous contrast. Multiple axial CT images of the cervical spine were obtained without intrav enous contrast. Coronal and sagittal reformats are provided. FINDINGS: Head: Ventricles, sulci and basal cisterns are within normal limits. There is no hydrocephalus. Vargas-white matter differentiation is normal. There is no acute intracranial hemorrhage. There is no mass, mass e ffect or midline shift. There is a remote lacunar infarct in the left cerebellum. There is dilated pe rivascular space in inferior left basal ganglia. Visualized portions of the orbits are normal. Paranasal sinuses are well aerated. Mastoid air cells a re well aerated. Scalp and calvaria are normal. Cervical spine: Alignment of the cervical spine is normal. Skull base is intact. Craniocervical junction is normal in appearance. Atlantoaxial articulation is normal. Vertebral body heights are maintained without evidence for acute fracture. There is a posterior disc osteophyte complex at C5-C6 with mild facet arthropathy and mild to moderat e uncovertebral joint disease, however. Mild bilateral neuroforaminal stenosis. No significant spinal canal stenosis. There is no prevertebral soft tissue swelling. Thyroid gland is normal in appearance. Visualized port ions of the lung apices are normal without evidence for suspicious pulmonary nodule or infiltrate. IMPRESSION: 1. No acute intracranial hemorrhage. Remote lacunar infarct in left cerebellum. 2. No acute fracture or malalignment of the cervical spine. Electronically signed by: Caroline Kelly MD (06/27/2020 12:45 PM) [facility]
--- NOTE | 2020-06-27 13:13 | EKG ---
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
[2020-06-27 13:31] LABS: CALCIUM 8.8 mg/dL (8.5-10.1); CREATININE 1.2 mg/dL (0.7-1.3); GFR 63.3; POTASSIUM 4.1 mmol/L (3.5-5.1)
[2020-06-27 13:37] LABS: ALBUMIN 4.1 g/dL (3.4-5.0); ALBUMIN/GLOBULIN RATIO 1.1 (1.0-1.7); TOTAL BILIRUBIN 0.6 mg/dL (0.2-1.0)
[2020-06-27 13:45] LABS: BASO % 1 % (0-3); EOS # 0.1 x10^3/uL (0.0-0.7); EOS % 2 % (0-3); HEMATOCRIT 34.5 % (39.0-53.0); HEMOGLOBIN 9.8 g/dL (13.0-17.5); LYMPH % 23 % (24-48); MEAN CORPUSCULAR HEMOGLOBIN 18 pg (25-35); MEAN CORPUSCULAR HGB CONC 28 g/dL (31-37); MEAN CORPUSCULAR VOLUME 62 fL (79-100); MONO # 0.4 x10^3/uL (0.0-1.1); MONO % 4 % (0-9); NEUT # 6.2 x10^3uL (1.8-7.7); NEUT % 71 % (31-73); PLATELET COUNT 523 x10^3/uL (140-400); RED BLOOD COUNT 5.57 x10^6/uL (4.30-5.70); RED CELL DISTRIBUTION WIDTH 20.7 % (11.5-14.5); WHITE BLOOD COUNT 8.8 x10^3/uL (4.0-11.0)
[2020-06-27 14:34] LABS: % BANDS 4 % (0-9); % BASOS 1 % (0-3); % EOS 2 % (0-5); % LYMPHS 2 % (24-48); % MONOS 6 % (0-10); % SEGS 85 % (35-66); ANISOCYTOSIS MOD; HYPOCHROMIA MOD; MICROCYTOSIS MOD; PLT ESTIMATE INCREASED (ADEQUATE); POLYCHROMASIA PRESENT
[2020-06-27 14:35] LABS: OVALOCYTES FEW; TEAR DROP CELLS OCC
[2020-06-27 14:39] VITALS: BP 104/57
== END 2020-06-27 14:42 | disposition home or self-care (01) ==
LOC: ER 11:47
DX: M25.552 Pain in left hip (principal); F20.9 Schizophrenia, unspecified; I67.9 Cerebrovascular disease, unspecified; G46.3 Brain stem stroke syndrome; I48.91 Unspecified atrial fibrillation; K21.9 Gastro-esophageal reflux disease without esophagitis; E03.9 Hypothyroidism, unspecified; I78.0 Hereditary hemorrhagic telangiectasia; Z90.89 Acquired absence of other organs; W19.XXXA Unspecified fall, initial encounter; Y93.89 Activity, other specified; Y92.89 Other specified places as the place of occurrence of the external cause; Y99.8 Other external cause status
CPT/HCPCS: 36415; 70450; 71045; 72125; 73502; 80053; 84484; 85007; 85025; 85610; 85730; 93005; 99285-25

== ENCOUNTER 2020-07-23 01:36 | Emergency (ER) | payer OTHER ==
--- NOTE | 2020-07-23 01:40 | PHYS DOC ---
Past History Past Medical History: A-Fib, Anxiety, Constipation, Depression, GERD, Hypothyroid, Schizophrenia Additional Past Medical Histor: Hyjil-Tvxyq-Ddvnz Dz Past Surgical History: Tonsillectomy, Other Additional Past Surgical Histo: duodenal surg, hernia repair Smoking: Non-smoker Alcohol Use: None Drug Use: None General Adult HPI: HPI: ".. My legs are hurting... they got sores on them... the voices.. said I should come in.. " Patient is a 55 year old male schizophrenic who presents with above hx and complaints bilateral leg areas of cellulitis and skin breakdown. Pt. states initial injury legs were abrasions. Patient states lesions have been present for over a week but now are more swollen and red. Patient's last tetanus was 2014. Patient has not been taking his Depo doses of antipsychotics at the counseling center. Patient has not followed with Dr. Walls who is his assigned doctor. Patient came tonight to the emergency department because voices told him that the legs sores need to be treated. Patient does know how the initial lesions started. No recent travel. No specific ill contacts. Patient currently has residence in a senior care. Patient denies any suicidal ideation. Patient denies any homicidal ideation. Is still hearing voices / hallucinations from females that instruct him on his behavior. Review of Systems: Review of Systems: Constitutional: Denies fever or chills Eyes: Denies change in visual acuity HENT: Denies nasal congestion or sore throat Respiratory: Denies cough or shortness of breath Cardiovascular: Denies chest pain or edema GI: Denies abdominal pain, nausea, vomiting, bloody stools or diarrhea : Denies dysuria Musculoskeletal: Denies back pain or joint pain Integument: Complains of skin breakdown and cellulitis both legs Neurologic: Denies headache, focal weakness or sensory changes Endocrine: Denies polyuria or polydipsia Lymphatic: Denies swollen glands Psychiatric: Hears voices Family History: Family History: Noncontributory to presentation Current Medications: Current Meds: See nursing for home meds Allergies: Allergies: Allergies Coded Allergies Type Severity Reaction Last Updated Verified aspirin Allergy Intermediate bleeding 06/27/20 Yes Physical Exam: PE: Constitutional: Moderate acute distress, non-toxic appearance. [] HENT: Normocephalic, atraumatic, bilateral external ears normal, oropharynx moist, no oral exudates, nose normal. Lesions on lips Eyes: PERRLA, EOMI, conjunctiva normal, no discharge. [] Neck: Normal range of motion, no tenderness, supple, no stridor. [] Cardiovascular:Heart rate regular rhythm, no murmur [] Lungs & Thorax: Bilateral breath sounds equal apex on auscultation [] Abdomen: Bowel sounds normal, soft, no tenderness, no masses, no pulsatile masses. Old surgery scars. Skin: Warm, dry, cellulitis, swelling and erythema both legs areas of skin breakdown. Back: No tenderness, no CVA tenderness. [] Extremities: No tenderness, no cyanosis, no clubbing, ROM intact, bilateral ankle edema. [] Neurologic: Alert and oriented X 3, normal motor function, normal sensory function, no focal deficits noted. [] Psychologic: Affect anxious, judgement normal, mood normal. [] Hearing voices EKG: EKG: [] Radiology/Procedures: Radiology/Procedures: [] Heart Score: Risk Factors: Risk Factors: DM, Current or recent (<one month) smoker, HTN, HLP, family history of CAD, obesity. Risk Scores: Score 0 - 3: 2.5% MACE over next 6 weeks - Discharge Home Score 4 - 6: 20.3% MACE over next 6 weeks - Admit for Clinical Observation Score 7 - 10: 72.7% MACE over next 6 weeks - Early Invasive Strategies Course & Med Decision Making: Course & Med Decision Making Pertinent Labs and Imaging studies reviewed. (See chart for details) Patient keep areas clean and dry. May use salt compresses 4 times a day and then apply Polysporin . The patient to take Bactrim DS twice a day. Patient follow-up primary care. Patient return if any concerns. Patient tetanus was updated. Patient may take Tylenol for pain. Patient warned of lesion became more inflamed or red may need admission with IV antibiotics. Must follow-up. Impression: 1. Bilateral leg cellulitis 2. Schizophrenia-hearing voices 3. History of medical noncompliance 4. History of Concha Cantrell, - Rosie Estrada [] Thereseon Disclaimer: Dragon Disclaimer: This electronic medical record was generated, in whole or in part, using a voice recognition dictation system. Departure Departure: Referrals: CRISS WALLS MD (PCP) Scripts Sulfamethoxazole/Trimethoprim (BACTRIM DS TABLET) 1 Each Tablet 1 TAB PO BID for cellulitis for 10 Days, #20 TAB 0 Refills Prov: KENDELL STEWART MD 07/23/20 Eliazar Disclaimer This chart was dictated in whole or in part using Voice Recognition software in a busy, high-work load, and often noisy Emergency Department environment. It may contain unintended and wholly unrecognized errors or omissions. Dragon Disclaimer This chart was dictated in whole or in part using Voice Recognition software in a busy, high-work load, and often noisy Emergency Department environment. It may contain unintended and wholly unrecognized errors or omissions. KENDELL STEWART MD Jul 23, 2020 01:40
[2020-07-23] MEDS ORDERED: SULF1TAB24 PO (01:56)
[2020-07-23] MEDS ORDERED: cefTRIAXone IM 1 GM VIAL IM ONE (02:00)
[2020-07-23] MEDS ORDERED: SMZ/TMP 800/160MG TABLET. PO ONE (02:00)
[2020-07-23] MEDS ORDERED: BACITRACIN ZINC TOPICAL OINT PACKET. TP ONE (02:00)
[2020-07-23] MEDS ORDERED: ACETAMINOPHEN 500 MG TABLET PO ONE (02:00)
[2020-07-23] MEDS ORDERED: DIPH,PERTUSS(ACELL),TET VAC/PF 0.5 ML SYRINGE. VAX IM ONE (02:30)
== END 2020-07-23 03:05 | disposition home or self-care (01) ==
LOC: ER 01:39
DX: L03.116 Cellulitis of left lower limb (principal); L03.115 Cellulitis of right lower limb; F20.9 Schizophrenia, unspecified; I78.0 Hereditary hemorrhagic telangiectasia; K13.0 Diseases of lips; I48.91 Unspecified atrial fibrillation; F41.9 Anxiety disorder, unspecified; F32.9 Major depressive disorder, single episode, unspecified; K21.9 Gastro-esophageal reflux disease without esophagitis; E03.9 Hypothyroidism, unspecified; Z91.14 Patient's other noncompliance with medication regimen; Z88.6 Allergy status to analgesic agent
CPT/HCPCS: 90471; 90715; 96372; 99284; J0696

== ENCOUNTER 2020-08-10 18:10 | Emergency (ER) | payer OTHER ==
[~2020-08-10] VITALS: Ht 180.3 cm; Wt 64.2 kg
[~2020-08-10 18:10] MED LIST changes: +SULF1TAB24 PO
[2020-08-10 18:35] LABS: HEMATOCRIT 33.9 % (39.0-53.0); HEMOGLOBIN 9.4 g/dL (13.0-17.5); RED BLOOD COUNT 5.55 x10^6/uL (4.30-5.70); RED CELL DISTRIBUTION WIDTH 20.7 % (11.5-14.5); WHITE BLOOD COUNT 7.5 x10^3/uL (4.0-11.0)
[2020-08-10 18:43] LABS: CALCIUM 8.2 mg/dL (8.5-10.1); GFR 78.2; POTASSIUM 3.9 mmol/L (3.5-5.1)
[2020-08-10 18:49] LABS: ALBUMIN 3.7 g/dL (3.4-5.0); ALBUMIN/GLOBULIN RATIO 1.1 (1.0-1.7); TOTAL BILIRUBIN 0.3 mg/dL (0.2-1.0); TOTAL PROTEIN 7.2 g/dL (6.4-8.2)
--- NOTE | 2020-08-10 18:51 | RAD ---
Chest radiograph 08/10/2020 6:28 PM INDICATION: Weakness COMPARISON: 06/27/2020 TECHNIQUE: Frontal and lateral views of the chest are provided. FINDINGS: The cardiomediastinal silhouette is within normal limits. There are no pleural effusions. There is no pulmonary vascular congestion. There is no pneumothorax. The lungs are clear. No significant osseous abnormality is identified. IMPRESSION: No acute cardiopulmonary process. Electronically signed by: Caroline Kelly MD (08/10/2020 6:48 PM) [facility]
--- NOTE | 2020-08-10 18:57 | EKG ---
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
[2020-08-10 20:01] VITALS: BP 138/75
--- NOTE | 2020-08-10 20:22 | PHYS DOC ---
Past History Past Medical History: A-Fib, Anxiety, Constipation, Depression, GERD, Hypothyroid, Schizophrenia Additional Past Medical Histor: Plebb-Rgicm-Vuhfy Dz (NAZARIO NOWAK APRN) Past Surgical History: Tonsillectomy, Other Additional Past Surgical Histo: duodenal surg, hernia repair (NAZARIO NOWAK APRN) Smoking: Non-smoker Alcohol Use: None Drug Use: None (NAZARIO NOWAK APRN) Adult General Chief Complaint Chief Complaint: WEAKNESS/GENERALIZED HPI HPI Patient is a 55-year-old male presents to the emergency department stating he has been feeling weak for the past several months and was sitting at [employer] today when he decided that he should come to the ER and get seen for his weakness. Patient denies any recent injuries, denies shortness of breath, denies chest pains, denies chest palpitations, denies chest congestion, denies skin rashes, denies headaches, denies fever or chills, denies visual changes, denies neurological problems at this time.. Patient denies loss of taste or loss of smell, patient denies diarrhea, nausea, vomiting, or abdominal pains. Patient denies any nasal congestion or runny nose. Patient denies having been exposed to the COVID-19 virus, and denies any symptoms of the COVID-19 virus. Patient states he has not had a flu shot and 2020, and has not had any immunizations for the COVID-19 virus. (NAZARIO NOWAK APRN) Review of Systems Review of Systems 14 body systems of review of systems have been reviewed. See HPI for pertinent positives and negative responses, otherwise all other systems are negative, nonpertinent or noncontributory. (NAZARIO NOWAK PRINCIPAL IOS DEVELOPER) Allergies Allergies Allergies Coded Allergies Type Severity Reaction Last Updated Verified aspirin Allergy Intermediate bleeding 06/27/20 Yes (NAZARIO NOWAK APRN) Physical Exam Physical Exam Constitutional: Well developed, well nourished, no acute distress, non-toxic appearance. HENT: Normocephalic, atraumatic, bilateral external ears normal, oropharynx moist, no oral exudates, nose normal. Eyes: PERRLA, EOMI, conjunctiva normal, no discharge. Neck: Normal range of motion, no tenderness, supple, no stridor. Cardiovascular:Heart rate regular rhythm, no murmur, heart sounds S1-S2. Lungs & Thorax: Bilateral breath sounds clear to auscultation all lung kramer. Abdomen: Bowel sounds normal, soft, no tenderness, no masses, no pulsatile masses. Skin: Warm, dry, no erythema, no rash. Back: No tenderness, no CVA tenderness. Extremities: No tenderness, no cyanosis, no clubbing, ROM intact, no edema. Neurologic: Alert and oriented X 3, normal motor function, normal sensory function, no focal deficits noted. Psychologic: Affect normal, judgement normal, mood normal. (NAZARIO NOWAK APRN) Current Patient Data Vital Signs Vital Signs Date Time Temp Pulse Resp B/P (MAP) Pulse Ox O2 Delivery O2 Flow Rate FiO2 08/10/20 20:01 97.7 86 16 138/75 (96) 100 Room Air Lab Results Laboratory Tests Test 08/10/20 18:21 White Blood Count 7.5 x10^3/uL (4.0-11.0) Red Blood Count 5.55 x10^6/uL (4.30-5.70) Hemoglobin 9.4 g/dL (13.0-17.5) L Hematocrit 33.9 % (39.0-53.0) L Mean Corpuscular Volume 61 fL (79-100) L Mean Corpuscular Hemoglobin 17 pg (25-35) L Mean Corpuscular Hemoglobin Concent 28 g/dL (31-37) L Red Cell Distribution Width 20.7 % (11.5-14.5) H Platelet Count 549 x10^3/uL (140-400) H Sodium Level 138 mmol/L (136-145) Potassium Level 3.9 mmol/L (3.5-5.1) Chloride Level 103 mmol/L (98-107) Carbon Dioxide Level 26 mmol/L (21-32) Anion Gap 9 (6-14) Blood Urea Nitrogen 13 mg/dL (8-26) Creatinine 1.0 mg/dL (0.7-1.3) Estimated GFR (Cockcroft-Gault) 78.2 BUN/Creatinine Ratio 13 (6-20) Glucose Level 82 mg/dL (70-99) Calcium Level 8.2 mg/dL (8.5-10.1) L Magnesium Level 2.0 mg/dL (1.8-2.4) Total Bilirubin 0.3 mg/dL (0.2-1.0) Aspartate Amino Transferase (AST) 20 U/L (15-37) Alanine Aminotransferase (ALT) 19 U/L (16-63) Alkaline Phosphatase 118 U/L (46-116) H Troponin I Quantitative < 0.017 ng/mL (0-0.055) Total Protein 7.2 g/dL (6.4-8.2) Albumin 3.7 g/dL (3.4-5.0) Albumin/Globulin Ratio 1.1 (1.0-1.7) (NAZARIO NOWAK APRN) EKG EKG EKG performed at 1842 by respiratory therapy staff, normal sinus rhythm without ectopy with a heart rate of 76, OR interval 0.142, QTc interval 0.389, no acute STEMI, no ACS, no acute ischemia appreciated, EKG interpreted by ED attending physician Dr. Silva. (NAZARIO NOWAK APRN) Radiology/Procedures Radiology/Procedures PATIENT: BOLIVAR JEFF ACCOUNT: [id number] : 1965 LOCATION: ER AGE: 55 SEX: M EXAM STATUS: REG ER ORD. PHYSICIAN: NAZARIO NOWAK APRN REASON: WEAKNESS PROCEDURE: CHEST PA & LATERAL Chest radiograph 08/10/2020 6:28 PM INDICATION: Weakness COMPARISON: 06/27/2020 TECHNIQUE: Frontal and lateral views of the chest are provided. FINDINGS: The cardiomediastinal silhouette is within normal limits. There are no pleural effusions. There is no pulmonary vascular congestion. There is no pneumothorax. The lungs are clear. No significant osseous abnormality is identified. IMPRESSION: No acute cardiopulmonary process. Electronically signed by: Carina Thomas MD (08/10/2020 6:48 PM) [facility] DICTATED AND SIGNED BY: CARINA THOMAS MD DATE: 08/10/20 1848 CC: NAZARIO NOWAK APRN; CRISS POWER MD ~MTH0 0 (NAZARIO NOWAK APRN) Heart Score Risk Factors: Risk Factors: DM, Current or recent (<one month) smoker, HTN, HLP, family histo ry of CAD, obesity. Risk Scores: Risk Factors: DM, Current or recent (<one month) smoker, HTN, HLP, family history of CAD, obesity. (NAZARIO NOWAK APRN) Course & Med Decision Making Course & Med Decision Making Pertinent Labs and Imaging studies reviewed. (See chart for details) 55-year-old male, vital signs reviewed, presents to the ER complaining of weakness. Patient denied weakness upon arriving to the emergency department. Patient's physical exam was unremarkable, related to the patient's complaint history a cardiac work-up was initiated. Patient's EKG, chest x-ray, and labs were unremarkable. On reexamination of the patient he remained complaint free without weakness. Discussed findings with patient. Patient gave verbal understanding of discharge home instructions, follow-up with primary care for ongoing symptoms, return to the emergency department precautions or concerns, patient discharged home. (NAZARIO NOWAK APRN) Dragon Disclaimer Dragon Disclaimer This electronic medical record was generated, in whole or in part, using a voice recognition dictation system. (NAZARIO NOWAK APRN) Departure Departure: Impression: Primary Impression: Weakness Disposition: 01 DC HOME SELF CARE/HOMELESS Condition: GOOD Referrals: CRISS POWER MD (PCP) Additional Instructions: Please follow-up with your primary care doctor for ongoing weakness symptoms. return to the emergency department for worsening symptoms or other concerns. EMERGENCY DEPARTMENT GENERAL DISCHARGE INSTRUCTIONS Thank you for coming to [facility] (ED) today and trusting us with you care. We trust that you had a positivie experience in our Emergency Department. If you wish to speak to the department management, you may call the director at [phone]. YOUR FOLLOW UP INSTRUCTIONS ARE FOLLOWS: 1. Do you have a private Doctor? If you do not have a private doctor, please ask for a resource list of physicians or clinics that may be able to assist you with follow up care. 2. The Emergency Physician has interpreted your x-rays. The X-Ray specialist will also review them. If there is a change in the findings, you will be notified in 48 hours when at all possible. 3. A lab test or culture has been done, your results will be reviewed and you will be notified if you need a change in treatment. ADDITIONAL INSTRUCTIONS AND INFORMATION: 1. Your care today has been supervised by a physician who is specially trained in emergency care. Many problems require more than one evaluation for a complete diagnosis and treatment. We recommend that you schedule your follow up appointment as recommended to ensure complete treatment of you illness or injury. If you are unable to obtain follow up care and continue to have a problem, or if your condition worsens, we recommend that you return to the ED. 2. We are not able to safely determine your condition over the phone nor are we able to give sound medical advice over the phone. For these safety reasons, if you call for medical advice we will ask you to come to the ED for further evaluation. 3. If you have any questions regarding these discharge instructions please call the ED at [phone]. SAFETY INFORMATION: In the interest of safety, wellness, and injury prevention; we encourage you to wear your sealbelt, if you smoke; quite smoking, and we encourage family to use a protective helmet for bicycling and other sporting events that present an increased risk for head injury. IF YOUR SYMPTOMS WORSEN OR NEW SYMPTOMS DEVELOP, OR YOU HAVE CONCERNS ABOUT YOUR CONDITION; OR IF YOUR CONDITION WORSENS WHILE YOU ARE WAITING FOR YOUR FOLLOW UP SHANNON OINTMENT; EITHER CONTACT YOUR PRIMARY CARE DOCTOR, THE PHYSICIAN WHOSE NAME AND NUMBER YOU WERE GIVEN, OR RETURN TO THE ED IMMEDIATELY. Attending Signature Attending Signature I have participated in the care of this patient and I have reviewed and agree with all pertinent clinical information above including history, exam, and recommendations. (KENDELL SILVA MD) NAZARIO NOWAK APRN Aug 10, 2020 20:21 KENDELL SILVA MD Aug 15, 2020 06:32
== END 2020-08-10 20:23 | disposition home or self-care (01) ==
LOC: ER 18:10
DX: R53.1 Weakness (principal); I48.91 Unspecified atrial fibrillation; F41.9 Anxiety disorder, unspecified; F32.9 Major depressive disorder, single episode, unspecified; K21.9 Gastro-esophageal reflux disease without esophagitis; E03.9 Hypothyroidism, unspecified; F20.9 Schizophrenia, unspecified; Z88.6 Allergy status to analgesic agent
CPT/HCPCS: 36415; 71046; 80053; 83735; 84484; 85027; 93005; 99285

== ENCOUNTER 2020-08-21 07:14 | Emergency (ER) | payer OTHER ==
[~2020-08-21] VITALS: Ht 180.3 cm; Wt 64.2 kg
[2020-08-21 07:15] VITALS: BP 156/86
--- NOTE | 2020-08-21 07:24 | PHYS DOC ---
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 Risk Scores: Score 0 - 3: 2.5% MACE over next 6 weeks - Discharge Home Score 4 - 6: 20.3% MACE over next 6 weeks - Admit for Clinical Observation Score 7 - 10: 72.7% MACE over next 6 weeks - Early Invasive Strategies Course & Med Decision Making: Course & Med Decision Making Pertinent Labs and Imaging studies reviewed. (See chart for details) DUE TO PROLONGED EMR DOWNTIME/HOSPITAL POLICY, PTS' FULL CHART (INCLUDING, HISTORY, ROS, PHYSICAL EXAM, IMPRESSION, IMAGING/LABS/ORDERS, DISPOSITION AND DISCHARGE PAPERS) -WAS DOCUMENTED VIA PAPER CHARTING. - PLEASE REFER TO PAPER DOCUMENTS FOR FULL INFORMATION REGARDING PTS' ED VISIT. Dragon Disclaimer: Dragon Disclaimer: This electronic medical record was generated, in whole or in part, using a voice recognition dictation system. Departure Departure: Impression: Primary Impression: Ankle pain, left Disposition: 01 DC HOME SELF CARE/HOMELESS Condition: STABLE Referrals: CRISS POWER MD (PCP) FIDEL CLARKE DO Aug 21, 2020 07:24
[2020-08-21] MEDS ORDERED: ACETAMINOPHEN 325 MG TABLET PO ONE (07:45)
--- NOTE | 2020-08-21 07:53 | RAD ---
XR EXAM OF ANKLE_LEFT 3V DATE: 08/21/2020 7:41 AM INDICATION: Reason: diffuse ankle pain / Spl. Instructions: / History: COMPARISON: None. FINDINGS: Bones: There is no evidence of acute fracture or dislocation. Posterior plantar calcaneal enthesophyt e. Joints: The ankle mortise is congruent. No widening of the distal tibiofibular syndesmosis. Miscellaneous: Medial soft tissue swelling. Atherosclerotic vascular calcifications. IMPRESSION: No evidence of acute fracture. Electronically signed by: Mayank Rowe MD (08/21/2020 7:51 AM) [id number]
== END 2020-08-21 08:10 | disposition home or self-care (01) ==
LOC: ER 07:14
DX: M25.572 Pain in left ankle and joints of left foot (principal); I78.0 Hereditary hemorrhagic telangiectasia; E03.9 Hypothyroidism, unspecified; F20.9 Schizophrenia, unspecified; I48.91 Unspecified atrial fibrillation; K21.9 Gastro-esophageal reflux disease without esophagitis; F32.9 Major depressive disorder, single episode, unspecified; F41.9 Anxiety disorder, unspecified; Z86.2 Personal history of diseases of the blood and blood-forming organs and certain disorders involving the immune mechanism; Z88.6 Allergy status to analgesic agent
CPT/HCPCS: 73610; 99283

== ENCOUNTER 2020-09-30 00:08 | Emergency (ER) | payer OTHER ==
[~2020-09-30] VITALS: Ht 180.3 cm; Wt 66.1 kg
[2020-09-30] MEDS ORDERED: CONTRAST GIVEN. MC PRN (01:00)
[2020-09-30] MEDS ORDERED: IOHEXOL 300 MG/ML 75 ML VIAL. IV ONE (01:00)
[2020-09-30] MEDS ORDERED: IV NORMAL SALINE 1,000ML 1,000 ML IV SCH (01:00)
--- NOTE | 2020-09-30 01:12 | PHYS DOC ---
Past History Past Medical History: A-Fib, Anxiety, Constipation, Depression, GERD, Hypothyroid, Schizophrenia Additional Past Medical Histor: Lbebp-Mfyuu-Szrkb Dz Past Surgical History: Tonsillectomy, Other Additional Past Surgical Histo: duodenal surg, hernia repair Smoking: Non-smoker Alcohol Use: None Drug Use: None Adult General Chief Complaint Chief Complaint: ABDOMINAL PAIN HPI HPI Patient is a 55yo male presenting of AP. Onset was <12 hours prior without known trauma, inciting event or concerning ingestion. Nothing known makes better, eating makes worse. Pain is epigastric and left-sided in origin. Timing of symptoms has been constant since onset and worsening. Patient has prior duodenal ligament surgery, also has hx Bqylk-Pqnql-Hsvvu. No fever, chills, falls, cp, shob or dysuria. Admits nausea, feelings of anorexia and generalized abdominal cramping Review of Systems Review of Systems Fourteen body systems of review of systems have been reviewed. See HPI for pertinent positives and negative responses, other yadav all other systems are negative, non-pertinent or non-contributory Current Medications Current Medications Current Medications Medications (Trade) Dose Ordered Sig/Tomasz Start Time Stop Time Status Last Admin Dose Admin Info (Do NOT chart on this entry -- for MONITORING) 1 each PRN DAILY PRN 09/30/20 01:00 10/02/20 00:59 Iohexol (Omnipaque 300 Mg/ml) 75 ml 1X ONCE 09/30/20 01:00 09/30/20 01:01 DC Sodium Chloride 1,000 ml @ 1,000 mls/hr Q1H 09/30/20 01:00 09/30/20 01:59 Allergies Allergies Allergies Coded Allergies Type Severity Reaction Last Updated Verified aspirin Allergy Intermediate bleeding 06/27/20 Yes Physical Exam Physical Exam Constitutional: Well developed, well nourished, no acute distress, non-toxic appearance. HENT: Normocephalic, atraumatic, bilateral external ears normal, oropharynx moist, no oral exudates, nose normal. Eyes: PERRLA, EOMI, conjunctiva normal, no discharge. Neck: Normal range of motion, no tenderness, supple, no stridor. Cardiovascular: Heart rate regular, sinus rhythm, no murmurs rubs or gallops Lungs & Thorax: Bilateral breath sounds clear to auscultation Abdomen: Bowel sounds normal, soft, no tenderness, no masses, no pulsatile masses. Nonsurgical abdomen, no peritoneal signs Skin: Warm, dry, no erythema, no rash. Back: No tenderness, no CVA tenderness. Extremities: No tenderness, no cyanosis, no clubbing, ROM intact, no edema. Neurologic: Alert and oriented X 3, grossly normal motor & sensory function, no focal deficits noted. Psychologic: Affect normal, judgement normal, mood normal. Current Patient Data Vital Signs Vital Signs Date Time Temp Pulse Resp B/P (MAP) Pulse Ox O2 Delivery O2 Flow Rate FiO2 09/30/20 00:10 97.6 83 18 109/67 (81) 97 Room Air Vital Signs Date Time Temp Pulse Resp B/P (MAP) Pulse Ox O2 Delivery O2 Flow Rate FiO2 09/30/20 03:15 70 20 110/68 (82) 98 Room Air 09/30/20 00:10 97.6 Lab Results Laboratory Tests Test 09/30/20 01:25 White Blood Count 9.7 x10^3/uL (4.0-11.0) Red Blood Count 5.84 x10^6/uL (4.30-5.70) Hemoglobin 13.3 g/dL (13.0-17.5) Hematocrit 44.7 % (39.0-53.0) Mean Corpuscular Volume 77 fL (79-100) Mean Corpuscular Hemoglobin 23 pg (25-35) Mean Corpuscular Hemoglobin Concent 30 g/dL (31-37) Red Cell Distribution Width 36.0 % (11.5-14.5) Platelet Count 399 x10^3/uL (140-400) Neutrophils (%) (Auto) 74 % (31-73) Lymphocytes (%) (Auto) 14 % (24-48) Monocytes (%) (Auto) 9 % (0-9) Eosinophils (%) (Auto) 3 % (0-3) Basophils (%) (Auto) 1 % (0-3) Neutrophils # (Auto) 7.1 x10^3uL (1.8-7.7) Lymphocytes # (Auto) 1.4 x10^3/uL (1.0-4.8) Monocytes # (Auto) 0.9 x10^3/uL (0.0-1.1) Eosinophils # (Auto) 0.3 x10^3/uL (0.0-0.7) Basophils # (Auto) 0.1 x10^3/uL (0.0-0.2) Segmented Neutrophils % 75 % (35-66) Lymphocytes % 13 % (24-48) Monocytes % 6 % (0-10) Eosinophils % 6 % (0-5) Platelet Estimate Adequate (ADEQUATE) Hypochromasia Mod Anisocytosis Marked Urine Collection Type Unknown Urine Color Peyton Urine Clarity Hazy Urine pH 5.5 Urine Specific [place] >=1.030 Urine Protein Trace (NEG-TRACE) Urine Glucose (UA) 100 mg/dL (NEG) Urine Ketones (Stick) Neg mg/dL (NEG) Urine Blood Trace (NEG) Urine Nitrite Neg (NEG) Urine Bilirubin Neg (NEG) Urine Urobilinogen Dipstick 0.2 mg/dL (0.2 mg/dL) Urine Leukocyte Esterase Neg (NEG) Urine RBC 11-20 /HPF (0-2) Urine WBC 0 /HPF (0-4) Urine Squamous Epithelial Cells None /LPF Urine Bacteria 0 /HPF (0-FEW) Sodium Level 140 mmol/L (136-145) Potassium Level 4.7 mmol/L (3.5-5.1) Chloride Level 105 mmol/L (98-107) Carbon Dioxide Level 23 mmol/L (21-32) Anion Gap 12 (6-14) Blood Urea Nitrogen 31 mg/dL (8-26) Creatinine 1.0 mg/dL (0.7-1.3) Estimated GFR (Cockcroft-Gault) 78.2 BUN/Creatinine Ratio 31 (6-20) Glucose Level 93 mg/dL (70-99) Calcium Level 9.4 mg/dL (8.5-10.1) Total Bilirubin 0.4 mg/dL (0.2-1.0) Aspartate Amino Transf (AST/SGOT) 54 U/L (15-37) Alanine Aminotransferase (ALT/SGPT) 38 U/L (16-63) Alkaline Phosphatase 130 U/L (46-116) Troponin I Quantitative < 0.017 ng/mL (0-0.055) Total Protein 8.0 g/dL (6.4-8.2) Albumin 3.8 g/dL (3.4-5.0) Albumin/Globulin Ratio 0.9 (1.0-1.7) Lipase 171 U/L (73-393) EKG EKG EKG ordered and interpreted by myself at 0104 hrs. as sinus rhythm at 80 bpm, unremarkable intervals, no axis deviation, no acute ischemic findings, no STEMI Radiology/Procedures Radiology/Procedures PROCEDURE: CT ABD PELV W/ IV CONTRST ONLY CT abdomen and pelvis with contrast PQRS statement: CT scans at this facility use dose reduction including either automated exposure control, iterative reconstructions, and /or weight based radiation dosing via mA and kV modification when appropriate to reduce radiation dose to as low as reasonably achievable. Contrast: 75 mL Omnipaque 300 intravenous contrast. HISTORY: Periumbilical abdominal pain. History of Sgyqz-Avcto-Yowai syndrome. 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 Fluid lower esophagus likely from reflux. Chronic bilateral L5 spondylolysis defects and L5-S1 disc bulge with spinal canal and neural foraminal stenoses. Tiny subcentimeter hypodensities of the liver too small to characterize most likely small cysts and/or hemangiomas, present on prior imaging. Gallbladder, pancreas, spleen, adrenal glands and kidneys are unremarkable. There is abnormal fold thickening of the duodenum and jejunum at the upper abdomen consistent with enterocolitis. No bowel obstruction. The appendix is negative. Large volume of stool. No abdominal fluid or adenopathy. Subacute healing left posterior 12th rib fracture. Pelvis findings: Large volume of stool within the rectum. Bladder and prostate are unremarkable. The left pubic bone demonstrates bony sclerosis with a possible central indistinct linear lucency and mild irregularity cortex new from prior imaging could represent a healing fracture. IMPRESSION: 1. Enteritis involving the duodenum and proximal jejunum. 2. The appendix is negative. 3. Bony sclerosis of the left pubic bone with a central indistinct linear lucency and cortical regularity, raising the possibility of a healing fracture. There is a separate healing fracture of the left posterior 12th rib. Follow-up x-rays of the pelvis in 6 months may be of benefit to document this resolves over time to exclude pathologic sclerotic bone lesion. 4. 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 Electronically signed by: Gaetano Mackenzie MD (09/30/2020 2:06 AM) [facility] [place] Heart Score C/O Chest Pain: No HEART Score for Chest Pain: HEART Score for Chest Pain Response (Comments) Value History Slighlty/Non-Suspicious 0 ECG Normal 0 Age >45 - < 65 1 Risk Factors 1 or 2 Risk Factors 1 Troponin < Normal Limit 0 Total 2 Risk Factors: Risk Factors: DM, Current or recent (<one month) smoker, HTN, HLP, family history of CAD, obesity. Risk Scores: Risk Factors: DM, Current or recent (<one month) smoker, HTN, HLP, family history of CAD, obesity. Course & Med Decision Making Course & Med Decision Making Hemodynamically stable. ER workup performed consistent with enteritis. Discussed other CT findings such as healing fractures and prior lung AVM that is stable Discussed self-limiting nature of illness and need for continued care and close outpatient follow-up. Strict return precautions discussed with good understanding, all questions and concerns addressed prior to departure Dragon Disclaimer Dragon Disclaimer This electronic medical record was generated, in whole or in part, using a voice recognition dictation system. Departure Departure: Impression: Primary Impression: Enteritis Additional Impressions: Abdominal pain Jyctf-Hgfqk-Menlb disease Disposition: DC HOME SELF CARE/HOMELESS Condition: STABLE Referrals: CRISS POWER MD (PCP) Patient Instructions: Viral Gastroenteritis Additional Instructions: You have been evaluated in the Emergency Department today for abdominal pain. Your evaluation was not suggestive of any emergent condition requiring medical intervention at this time. However, some abdominal problems make take more time to appear. Therefore, it is important for you to watch for any new symptoms or worsening of your current condition. Please continue supportive care practices on discharge home. Please call your primary care physician first thing Friday morning to review ER visit today and discuss next steps of care. As disclosed, you will need repeat radiograph pictures of your left hip in approximately 6 months to document continued reso lution of healing pubic and left 12th rib fractures Return to the Emergency Department if you experience worsening pain, persistent fevers greater than 100.4, recurrent vomiting, blood in vomit, blood in stool, dark tarry stool, chest pain, difficulty breathing, or any other concerning symptoms. Problem Qualifiers CRUZ BHATT DO Sep 30, 2020 01:12
--- NOTE | 2020-09-30 01:27 | EKG ---
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
[2020-09-30 02:08] LABS: CALCIUM 9.4 mg/dL (8.5-10.1); GFR 78.2; POTASSIUM 4.7 mmol/L (3.5-5.1)
--- NOTE | 2020-09-30 02:08 | RAD ---
CT abdomen and pelvis with contrast PQRS statement: CT scans at this facility use dose reduction including either automated exposure cont rol, iterative reconstructions, and /or weight based radiation dosing via mA and kV modification when appropriate to reduce radiation dose to as low as reasonably achievable. Contrast: 75 mL Omnipaque 300 intravenous contrast. HISTORY: Periumbilical abdominal pain. History of Arwkb-Qmafd-Qqmrb syndrome. 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 F luid lower esophagus likely from reflux. Chronic bilateral L5 spondylolysis defects and L5-S1 disc bu lge with spinal canal and neural foraminal stenoses. Tiny subcentimeter hypodensities of the liver to o small to characterize most likely small cysts and/or hemangiomas, present on prior imaging. Gallbla dder, pancreas, spleen, adrenal glands and kidneys are unremarkable. There is abnormal fold thickenin g of the duodenum and jejunum at the upper abdomen consistent with enterocolitis. No bowel obstructio n. The appendix is negative. Large volume of stool. No abdominal fluid or adenopathy. Subacute healin g left posterior 12th rib fracture. Pelvis findings: Large volume of stool within the rectum. Bladder and prostate are unremarkable. The left pubic bone demonstrates bony sclerosis with a possible central indistinct linear lucency and mil d irregularity cortex new from prior imaging could represent a healing fracture. IMPRESSION: 1. Enteritis involving the duodenum and proximal jejunum. 2. The appendix is negative. 3. Bony sclerosis of the left pubic bone with a central indistinct linear lucency and cortical regula rity, raising the possibility of a healing fracture. There is a separate healing fracture of the left posterior 12th rib. Follow-up x-rays of the pelvis in 6 months may be of benefit to document this re solves over time to exclude pathologic sclerotic bone lesion. 4. 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 Electronically signed by: Gaetano Mackenzie MD (09/30/2020 2:06 AM) [facility]
[2020-09-30 02:13] LABS: BASO # 0.1 x10^3/uL (0.0-0.2); BASO % 1 % (0-3); EOS # 0.3 x10^3/uL (0.0-0.7); EOS % 3 % (0-3); HEMATOCRIT 44.7 % (39.0-53.0); HEMOGLOBIN 13.3 g/dL (13.0-17.5); LYMPH # 1.4 x10^3/uL (1.0-4.8); LYMPH % 14 % (24-48); MEAN CORPUSCULAR HEMOGLOBIN 23 pg (25-35); MEAN CORPUSCULAR HGB CONC 30 g/dL (31-37); MEAN CORPUSCULAR VOLUME 77 fL (79-100); MONO # 0.9 x10^3/uL (0.0-1.1); MONO % 9 % (0-9); NEUT # 7.1 x10^3uL (1.8-7.7); NEUT % 74 % (31-73); PLATELET COUNT 399 x10^3/uL (140-400); RED BLOOD COUNT 5.84 x10^6/uL (4.30-5.70); WHITE BLOOD COUNT 9.7 x10^3/uL (4.0-11.0)
[2020-09-30 02:21] LABS: ALBUMIN 3.8 g/dL (3.4-5.0); ALBUMIN/GLOBULIN RATIO 0.9 (1.0-1.7); TOTAL BILIRUBIN 0.4 mg/dL (0.2-1.0)
[2020-09-30 02:37] LABS: BACTERIA,URINE 0 /HPF (0-FEW); BILIRUBIN,URINE NEG (NEG); CLARITY,URINE HAZY; COLOR,URINE AMBER; GLUCOSE,URINE 100 mg/dL (NEG); NITRITE,URINE NEG (NEG); UROBILINOGEN,URINE 0.2 mg/dL (0.2 mg/dL); WBC,URINE 0 /HPF (0-4)
[2020-09-30 03:15] VITALS: BP 110/68
[2020-09-30 05:31] LABS: % EOS 6 % (0-5); % LYMPHS 13 % (24-48); % MONOS 6 % (0-10); % SEGS 75 % (35-66); ANISOCYTOSIS MARKED; HYPOCHROMIA MOD; PLT ESTIMATE ADEQUATE (ADEQUATE)
== END 2020-09-30 03:32 | disposition home or self-care (01) ==
LOC: ER 00:08
DX: K52.9 Noninfective gastroenteritis and colitis, unspecified (principal); I78.0 Hereditary hemorrhagic telangiectasia; R10.13 Epigastric pain; I11.0 Hypertensive heart disease with heart failure; R63.0 Anorexia; I48.20 Chronic atrial fibrillation, unspecified; F41.9 Anxiety disorder, unspecified; K59.00 Constipation, unspecified; F32.9 Major depressive disorder, single episode, unspecified; K21.9 Gastro-esophageal reflux disease without esophagitis; E03.9 Hypothyroidism, unspecified; F20.9 Schizophrenia, unspecified; Z90.89 Acquired absence of other organs; Z98.890 Other specified postprocedural states; Z88.8 Allergy status to other drugs, medicaments and biological substances
CPT/HCPCS: 36415; 74177; 80053; 81001; 83690; 84484; 85007; 85025; 93005; 96360; 99285; J7030; Q9967

== ENCOUNTER 2020-10-06 03:30 | Emergency (ER) | payer OTHER ==
[~2020-10-06] VITALS: Ht 180.3 cm; Wt 66.1 kg
[2020-10-06] MEDS ORDERED: ACETAMINOPHEN 325 MG TABLET PO ONE (03:45)
[2020-10-06] MEDS ORDERED: IBUPROFEN 600 MG TABLET. PO ONE (03:45)
--- NOTE | 2020-10-06 03:53 | PHYS DOC ---
Past History Past Medical History: A-Fib, Anxiety, Constipation, Depression, GERD, Hypothyroid, Schizophrenia, Other Additional Past Medical Histor: Raynauds;Ebnvv-Vjsbo-Buooa Past Surgical History: Tonsillectomy, Other Additional Past Surgical Histo: duodenal surgery; hernia repair Smoking: Non-smoker Alcohol Use: None Drug Use: None Adult General Chief Complaint Chief Complaint: Neck Pain HPI HPI Patient is a 55-year-old male homeless male, who presents with a chief complaint of neck pain. States he has had neck pain on and off for several years but started hurting about a half an hour ago as he was walking. States that all over, 5 out of 10, dull and achy in nature. Denies any recent traumas/falls/injuries, recent travel, illnesses, fevers, cold/flu symptoms, dexter st pain, shortness of breath, abdominal pain, nausea, vomiting. States he does not have any pain medication at home. Review of Systems Review of Systems Review of systems otherwise unremarkable except noted in HPI Current Medications Current Medications Current Medications Medications (Trade) Dose Ordered Sig/Tomasz Start Time Stop Time Status Last Admin Dose Admin Acetaminophen (Tylenol) 650 mg 1X ONCE 10/06/20 03:45 10/06/20 03:46 DC 10/06/20 03:43 650 MG Ibuprofen (Motrin) 600 mg 1X ONCE 10/06/20 03:45 10/06/20 03:46 DC 10/06/20 03:43 600 MG Allergies Allergies Allergies Coded Allergies Type Severity Reaction Last Updated Verified aspirin Adverse Reaction Intermediate bleeding 10/06/20 Yes Physical Exam Physical Exam Constitutional: Well developed, well nourished, no acute distress, non-toxic appearance. [] HENT: Normocephalic, atraumatic, oropharynx moist, Eyes: PERRLA, conjunctiva normal, no discharge. [] Neck: Completely normal range of motion, no tenderness, no deformities, no bruising supple, Cardiovascular:Heart rate regular rhythm, no murmur [] Lungs & Thorax: Bilateral breath sounds clear to auscultation [] Back: No tenderness, Extremities: No tenderness, ROM intact, Neurologic: Alert and oriented X 3, normal motor function, normal sensory function, no focal deficits noted. [] Psychologic: Affect normal, judgement normal, mood normal. [] EKG EKG [] Radiology/Procedures Radiology/Procedures [] Heart Score C/O Chest Pain: No Risk Factors: Risk Factors: DM, Current or recent (<one month) smoker, HTN, HLP, family history of CAD, obesity. Risk Scores: Risk Factors: DM, Current or recent (<one month) smoker, HTN, HLP, family history of CAD, obesity. Course & Med Decision Making Course & Med Decision Making Patient is a 55-year-old male who presents with generalized neck pain Vital signs not concerning. Physical exam noted above. Patient given Tylenol, ibuprofen and ice pack. Patient requested food, and was given some sodas, and chips. Patient stated medicine did help. Discussed all findings with patient and recommended a Tylenol and/or ibuprofen regimen. Recommended ice pack as well. Gave contact information for [email or web address] to allow establishment of care and gave local family practitioner as patient does have insurance. Patient grateful, verbalized understanding and agreed with plan of discharge. [] Dragon Disclaimer Dragon Disclaimer This electronic medical record was generated, in whole or in part, using a voice recognition dictation system. Departure Departure: Impression: Primary Impression: Neck pain Disposition: 01 DC HOME SELF CARE/HOMELESS Condition: GOOD Referrals: CRISS POWER MD (PCP) Patient Instructions: RICE - Routine Care for Injuries, [id number] Additional Instructions: Please read all the attached information. Please begin a Tylenol, ibuprofen and ice regimen for pain control at home. Please call your primary care physician first thing in the morning to set up a follow-up visit and discuss your recent ED visit. Please come back to the ED with new or concerning symptoms. BENJIE MAN MD Oct 06, 2020 03:53
[2020-10-06 04:00] VITALS: BP 110/68
== END 2020-10-06 04:00 | disposition home or self-care (01) ==
LOC: ER 03:30
DX: M54.2 Cervicalgia (principal); I48.91 Unspecified atrial fibrillation; K21.9 Gastro-esophageal reflux disease without esophagitis; E03.9 Hypothyroidism, unspecified; F20.9 Schizophrenia, unspecified; Z88.6 Allergy status to analgesic agent
CPT/HCPCS: 82947; 99283

== ENCOUNTER 2020-10-06 17:04 | Emergency (ER) | payer OTHER ==
[~2020-10-06] VITALS: Ht 180.3 cm; Wt 66.0 kg
[2020-10-06 17:20] VITALS: BP 100/68
--- NOTE | 2020-10-06 18:16 | PHYS DOC ---
Past History Past Medical History: A-Fib, Anxiety, Constipation, Depression, GERD, Hypothyroid, Schizophrenia, Other Additional Past Medical Histor: Raynauds;Qwzoj-Offhb-Aweuq (NIRMAL BRAGA APRN) Past Medical History: Anemia, Anxiety, Bronchitis, Constipation, Depression, DVT, GERD, GI Bleed, Schizophrenia, Other Past Medical History Lavelle- Kern -Rendu Dz,, frequent epistaxis., Delusions paranoia, chronic auditory hallucinations if not taking psych meds, history of noncompliance, (KENDELL STEWART MD) Past Surgical History: Tonsillectomy, Other Additional Past Surgical Histo: duodenal surgery; hernia repair (NIRMAL BRAGA APRN) Smoking: Non-smoker Alcohol Use: None Drug Use: None (NIRMAL BRAGA APRN) General Adult EDM: Chief Complaint: GENERALIZED BODY ACHES HPI: HPI: Patient is a 55-year-old male who presents with generalized abdominal pain that started an hour ago. Patient reports he feels achy. Patient states that he was released from retirement yesterday and is homeless. Patient denies any drug use. Does have a history of schizophrenia, seizure disorder, stroke, A. fib, GERD, anxiety.. (NIRMAL BRAGA APRN) Review of Systems: Review of Systems: Constitutional: Denies fever or chills Eyes: Denies change in visual acuity HENT: Denies nasal congestion or sore throat Respiratory: Denies cough or shortness of breath Cardiovascular: Denies chest pain or edema GI: Reports generalized abdominal pain. denies nausea, vomiting, bloody stools : Denies dysuria Musculoskeletal: Denies back pain or joint pain Integument: Denies rash Neurologic: Denies headache, focal weakness or sensory changes Endocrine: Denies polyuria or polydipsia Lymphatic: Denies swollen glands Psychiatric: Denies depression or anxiety (NIRMAL BRAGA APRN) Allergies: Allergies: Allergies Coded Allergies Type Severity Reaction Last Updated Verified aspirin Adverse Reaction Intermediate bleeding 10/06/20 Yes (NIRMAL BRAGA APRN) Physical Exam: PE: Constitutional: Well developed, well nourished, no acute distress, non-toxic ap pearance. [] HENT: Normocephalic, atraumatic, bilateral external ears normal, oropharynx moist, no oral exudates, nose normal. [] Eyes: PERRLA, EOMI, conjunctiva normal, no discharge. [] Neck: Normal range of motion, no tenderness, supple, no stridor. [] Cardiovascular:Heart rate regular rhythm, no murmur [] Lungs & Thorax: Bilateral breath sounds clear to auscultation [] Abdomen: Bowel sounds normal, soft, no tenderness, no masses, no pulsatile masses. [] Skin: Warm, dry, no erythema, no rash. [] Back: No tenderness, no CVA tenderness. [] Extremities: No tenderness, no cyanosis, no clubbing, ROM intact, no edema. [] Neurologic: Alert and oriented X 3, normal motor function, normal sensory function, no focal deficits noted. [] Psychologic: Affect flat,, mood (NIRMAL BRAGA APRN) Current Patient Data: Vital Signs: Vital Signs Date Time Temp Pulse Resp B/P (MAP) Pulse Ox O2 Delivery O2 Flow Rate FiO2 10/06/20 17:20 97.9 91 16 100/68 (79) 97 Room Air (NIRMAL BRAGA APRN) EKG: EKG: [] (NIRMAL BRAGA APRN) Radiology/Procedures: Radiology/Procedures: []CT abdomen pelvis without contrast dated 10/06/2020. Comparison made to 09/30/2020. CLINICAL INDICATION: Abdominal pain. TECHNIQUE: Contiguous axial imaging the abdomen pelvis performed without the administration of IV or oral contrast. One or more of the following individualized dose reduction techniques were utilized for this examination: 1. Automated exposure control 2. Adjustment of the mA and/or kV according to patient size 3. Use of iterative reconstruction technique. FINDINGS: Limited images of the lung bases are clear. Heart size is within normal limits. No pleural or pericardial effusion. Solid abdominal viscera not well evaluated in the absence of contrast material. No apparent attenuation abnormality of the liver or spleen. There are well- circumscribed low-density foci in the right and left lobe liver that likely represent cysts or other benign lesions, unchanged. Spleen is mildly enlarged. Pancreas, adrenal glands and gallbladder are unremarkable. Kidneys are symmetric in size and attenuation. No calcific renal or ureteral stone. No hydronephrosis. Unopacified GI tract normal in caliber and contour. No focal bowel wall thickening. No inflammatory stranding in the mesentery. The appendix is normal in caliber. No ascites or lymphadenopathy. Abdominal aorta normal in caliber. Images of pelvis show mildly distended urinary bladder. Prostate gland is mildly enlarged. No free fluid or pelvic lymphadenopathy. Bone windows show no acute findings. Multilevel spondylosis. Sclerotic changes and slight deformity of the left pubic bone at the pubic symphysis and inferior ramus is similar to prior study, likely related to healed or healing fracture. IMPRESSION: 1. No acute abnormality of abdomen or pelvis. Normal appendix. 2. Indeterminate low-density foci in the liver are unchanged from prior study and likely represent cysts or other benign lesions. 3. Healed or healing fractures of this left pubic bone and inferior ramus. Electronically signed by: Grey Lombardo MD (10/06/2020 6:57 PM) [facility] chest dated 10/06/2020.: Comparison: 08/10/2020. Clinical Indication: Abdominal pain. Findings: Single upright portable exam of the chest was performed. Heart and mediastinal contours are stable. Some prominent perihilar linear markings, unchanged. No consolidation or pleural effusion. No pneumothorax. Lungs are somewhat hyperinflated. Impression:: No acute radiographic abnormality. Stable findings compared to 08/10/2020. Electronically signed by: Grey Lombardo MD (10/06/2020 6:58 PM) [facility] (NIRMAL BRAGA APRN) Radiology/Procedures: [address], [place] [address] IMAGING REPORT Signed PATIENT: BOLIVAR JEFF ACCOUNT: [id number] : 1965 LOCATION: ER AGE: 55 SEX: M EXAM STATUS: REG ER ORD. PHYSICIAN: NIRMAL BRAGA APRN REASON: abdominal pain PROCEDURE: CT ABDOMEN PELVIS WO CONTRAST CT abdomen pelvis without contrast dated 10/06/2020. Comparison made to 09/30/2020. CLINICAL INDICATION: Abdominal pain. TECHNIQUE: Contiguous axial imaging the abdomen pelvis performed without the administration of IV or oral contrast. One or more of the following individualized dose reduction techniques were utilized for this examination: 1. Automated exposure control 2. Adjustment of the mA and/or kV according to patient size 3. Use of iterative reconstruction technique. FINDINGS: Limited images of the lung bases are clear. Heart size is within normal limits. No pleural or pericardial effusion. Solid abdominal viscera not well evaluated in the absence of contrast material. No apparent attenuation abnormality of the liver or spleen. There are well- circumscribed low-density foci in the right and left lobe liver that likely represent cysts or other benign lesions, unchanged. Spleen is mildly enlarged. Pancreas, adrenal glands and gallbladder are unremarkable. Kidneys are symmetric in size and attenuation. No calcific renal or ureteral stone. No hydronephrosis. Unopacified GI tract normal in caliber and contour. No focal bowel wall thickening. No inflammatory stranding in the mesentery. The appendix is normal in caliber. No ascites or lymphadenopathy. Abdominal aorta normal in caliber. Images of pelvis show mildly distended urinary bladder. Prostate gland is mildly enlarged. No free fluid or pelvic lymphadenopathy. Bone windows show no acute findings. Multilevel spondylosis. Sclerotic changes and slight deformity of the left pubic bone at the pubic symphysis and inferior ramus is similar to prior study, likely related to healed or healing fracture. IMPRESSION: 1. No acute abnormality of abdomen or pelvis. Normal appendix. 2. Indeterminate low-density foci in the liver are unchanged from prior study and likely represent cysts or other benign lesions. 3. Healed or healing fractures of this left pubic bone and inferior ramus. Electronically signed by: Grey Lombardo MD (10/06/2020 6:57 PM) [facility] DICTATED AND SIGNED BY: GREY LOMBARDO MD DATE: 10/06/201852 CC: NIRMAL BRAGA APRN; CRISS POWER MD ~MTH0 [id number] [place] [address] IMAGING REPORT Signed PATIENT: BOLIVAR JEFF ACCOUNT: [id number] : 1965 LOCATION: ER AGE: 55 SEX: M EXAM STATUS: REG ER ORD. PHYSICIAN: NIRMAL BRAGA APRN REASON: abdominal pain PROCEDURE: CHEST AP ONLY Single view chest dated 10/06/2020.: Comparison: 08/10/2020. Clinical Indication: Abdominal pain. Findings: Single upright portable exam of the chest was performed. Heart and mediastinal contours are stable. Some prominent perihilar linear markings, unchanged. No consolidation or pleural effusion. No pneumothorax. Lungs are somewhat hyperinflated. Impression:: No acute radiographic abnormality. Stable findings compared to 08/10/2020. Electronically signed by: Grey Lombardo MD (10/06/2020 6:58 PM) [facility] DICTATED AND SIGNED BY: GREY LOMBARDO MD DATE: 10/06/201856 CC: NIRMAL BRAGA APRN; CRISS POWER MD ~MTH0 0 (KENDELL STEWART MD) Heart Score: C/O Chest Pain: No Risk Factors: Risk Factors: DM, Current or recent (<one month) smoker, HTN, HLP, family history of CAD, obesity. Risk Scores: Score 0 - 3: 2.5% MACE over next 6 weeks - Discharge Home Score 4 - 6: 20.3% MACE over next 6 weeks - Admit for Clinical Observation Score 7 - 10: 72.7% MACE over next 6 weeks - Early Invasive Strategies (NIRMAL BRAGA APRN) Course & Med Decision Making: Course & Med Decision Making Pertinent Labs and Imaging studies reviewed. (See chart for details) [] Potassium slightly elevated at 5.5. Patient's glucose was rechecked at bedside and was 73. Patient given some juice and food while in the emergency room. Patient's chest x-ray was negative for any acute abnormalities. CT of abdomen pelvis was negative. UA was negative for infection. Patient is most likely having pain related to his GERD. Patient given GI cocktail and Tylenol for body aches. Instructed patient to follow back up with his PCP to be restarted on medication for his GERD. Patient is hemodynamically stable on discharge. Patient is to return to the emergency room with worsening symptoms or concerns. (NIRMAL BRAGA APRN) Dragon Disclaimer: Eliazar Disclaimer: This electronic medical record was generated, in whole or in part, using a voice recognition dictation system. (NIRMAL BRAGA APRN) Departure Departure: Impression: Primary Impression: Abdominal pain Qualified Codes: R10.10 - Upper abdominal pain, unspecified Disposition: DC HOME SELF CARE/HOMELESS Condition: STABLE Referrals: CRISS POWER MD (PCP) Patient Instructions: Abdominal Pain Additional Instructions: EMERGENCY DEPARTMENT GENERAL DISCHARGE INSTRUCTIONS Thank you for coming to [facility] (ED) today and trusting us with you care. We trust that you had a positivie experience in our Emergency Department. If you wish to speak to the department management, you may call the director at [phone]. YOUR FOLLOW UP INSTRUCTIONS ARE FOLLOWS: 1. Do you have a private Doctor? If you do not have a private doctor, please ask for a resource list of physicians or clinics that may be able to assist you with follow up care. 2. The Emergency Physician has interpreted your x-rays. The X-Ray specialist will also review them. If there is a change in the findings, you will be notified in 48 hours when at all possible. 3. A lab test or culture has been done, your results will be reviewed and you will be notified if you need a change in treatment. ADDITIONAL INSTRUCTIONS AND INFORMATION: 1. Your care today has been supervised by a physician who is specially trained in emergency care. Many problems require more than one evaluation for a complete diagnosis and treatment. We recommend that you schedule your follow up appointment as recommended to ensure complete treatment of you illness or injury. If you are unable to obtain follow up care and continue to have a problem, or if your condition worsens, we recommend that you return to the ED. 2. We are not able to safely determine your condition over the phone nor are we able to give sound medical advice over the phone. For these safety reasons, if you call for medical advice we will ask you to come to the ED for further evaluation. 3. If you have any questions regarding these discharge instructions please call the ED at [phone]. SAFETY INFORMATION: In the interest of safety, wellness, and injury prevention; we encourage you to wear your sealbelt, if you smoke; quite smoking, and we encourage family to use a protective helmet for bicycling and other sporting events that present an increased risk for head injury. IF YOUR SYMPTOMS WORSEN OR NEW SYMPTOMS DEVELOP, OR YOU HAVE CONCERNS ABOUT YOUR CONDITION; OR IF YOUR CONDITION WORSENS WHILE YOU ARE WAITING FOR YOUR FOLLOW UP APPOINTMENT; EITHER CONTACT YOUR PRIMARY CARE DOCTOR, THE PHYSICIAN WHOSE NAME AND NUMBER YOU WERE GIVEN, OR RETURN TO THE ED IMMEDIATELY. Attending Signature Attending Signature I have participated in the care of this patient and I have reviewed and agree with all pertinent clinical information above including history, exam, and recommendations. (KENDELL STEWART MD) Attending Signature Attending Signature I have participated in the care of this patient and I have reviewed and agree with all pertinent clinical information above including history, exam, and recommendations. (KENDELL STEWART MD) Dragon Disclaimer This chart was dictated in whole or in part using Voice Recognition software in a busy, high-work load, and often noisy Emergency Department environment. It may contain unintended and wholly unrecognized errors or omissions. (KENDELL STEWART MD) NIRMAL BRAGA [employer] Oct 06, 2020 18:16 KENDELL STEWART MD Oct 06, 2020 20:28
--- NOTE | 2020-10-06 18:59 | RAD ---
CT abdomen pelvis without contrast dated 10/06/2020. Comparison made to 09/30/2020. CLINICAL INDICATION: Abdominal pain. TECHNIQUE: Contiguous axial imaging the abdomen pelvis performed without the administration of IV or oral contra st. One or more of the following individualized dose reduction techniques were utilized for this examinat ion: 1. Automated exposure control 2. Adjustment of the mA and/or kV according to patient size 3. Use of iterative reconstruction technique. FINDINGS: Limited images of the lung bases are clear. Heart size is within normal limits. No pleural or pericar dial effusion. Solid abdominal viscera not well evaluated in the absence of contrast material. No apparent attenuati on abnormality of the liver or spleen. There are well-circumscribed low-density foci in the right and left lobe liver that likely represent cysts or other benign lesions, unchanged. Spleen is mildly enl arged. Pancreas, adrenal glands and gallbladder are unremarkable. Kidneys are symmetric in size and attenuation. No calcific renal or ureteral stone. No hydronephrosis . Unopacified GI tract normal in caliber and contour. No focal bowel wall thickening. No inflammatory s tranding in the mesentery. The appendix is normal in caliber. No ascites or lymphadenopathy. Abdomina l aorta normal in caliber. Images of pelvis show mildly distended urinary bladder. Prostate gland is mildly enlarged. No free fl uid or pelvic lymphadenopathy. Bone windows show no acute findings. Multilevel spondylosis. Sclerotic changes and slight deformity o f the left pubic bone at the pubic symphysis and inferior ramus is similar to prior study, likely rel ated to healed or healing fracture. IMPRESSION: 1. No acute abnormality of abdomen or pelvis. Normal appendix. 2. Indeterminate low-density foci in the liver are unchanged from prior study and likely represent cy sts or other benign lesions. 3. Healed or healing fractures of this left pubic bone and inferior ramus. Electronically signed by: Grey Lombardo MD (10/06/2020 6:57 PM) [facility]
--- NOTE | 2020-10-06 19:00 | RAD ---
Single view chest dated 10/06/2020.: Comparison: 08/10/2020. Clinical Indication: Abdominal pain. Findings: Single upright portable exam of the chest was performed. Heart and mediastinal contours are stable. S ome prominent perihilar linear markings, unchanged. No consolidation or pleural effusion. No pneumoth orax. Lungs are somewhat hyperinflated. Impression:: No acute radiographic abnormality. Stable findings compared to 08/10/2020. Electronically signed by: Grey Lombardo MD (10/06/2020 6:58 PM) [facility]
[2020-10-06 19:06] LABS: BASO # 0.1 x10^3/uL (0.0-0.2); BASO % 1 % (0-3); EOS # 0.4 x10^3/uL (0.0-0.7); EOS % 5 % (0-3); HEMOGLOBIN 14.2 g/dL (13.0-17.5); LYMPH # 1.3 x10^3/uL (1.0-4.8); LYMPH % 15 % (24-48); MEAN CORPUSCULAR HEMOGLOBIN 23 pg (25-35); MEAN CORPUSCULAR HGB CONC 30 g/dL (31-37); MEAN CORPUSCULAR VOLUME 77 fL (79-100); MONO # 0.9 x10^3/uL (0.0-1.1); MONO % 11 % (0-9); NEUT # 5.8 x10^3uL (1.8-7.7); NEUT % 68 % (31-73); PLATELET COUNT 262 x10^3/uL (140-400); RED BLOOD COUNT 6.12 x10^6/uL (4.30-5.70); RED CELL DISTRIBUTION WIDTH 33.9 % (11.5-14.5); WHITE BLOOD COUNT 8.5 x10^3/uL (4.0-11.0)
[2020-10-06 19:15] LABS: CALCIUM 8.7 mg/dL (8.5-10.1); CREATININE 1.1 mg/dL (0.7-1.3)
[2020-10-06 19:15] LABS: BACTERIA,URINE 0 /HPF (0-FEW); BILIRUBIN,URINE NEG (NEG); CLARITY,URINE CLEAR; COLOR,URINE YELLOW; GLUCOSE,URINE 100 mg/dL (NEG); NITRITE,URINE NEG (NEG); RBC,URINE RARE /HPF (0-2); SQUAMOUS EPITHELIAL CELL,UR OCC /LPF; UROBILINOGEN,URINE 0.2 mg/dL (0.2 mg/dL); WBC,URINE RARE /HPF (0-4)
[2020-10-06 19:21] LABS: ALBUMIN 3.6 g/dL (3.4-5.0); ALBUMIN/GLOBULIN RATIO 0.8 (1.0-1.7); TOTAL BILIRUBIN 0.4 mg/dL (0.2-1.0); TOTAL PROTEIN 7.9 g/dL (6.4-8.2)
[2020-10-06 19:22] LABS: POTASSIUM 5.5 mmol/L (3.5-5.1)
--- NOTE | 2020-10-06 19:48 | EKG ---
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
[2020-10-06 20:02] LABS: ANISOCYTOSIS MOD; HYPOCHROMIA SLIGHT; PLT ESTIMATE ADEQUATE (ADEQUATE)
[2020-10-06 20:03] LABS: OVALOCYTES FEW; TEAR DROP CELLS OCC
[2020-10-06] MEDS ORDERED: LIDO:MAALOX 1:1 20 ML SINGLE DOSE. PO ONE (20:15)
[2020-10-06] MEDS ORDERED: ACETAMINOPHEN 500 MG TABLET PO ONE (20:15)
== END 2020-10-06 20:25 | disposition home or self-care (01) ==
LOC: ER 17:04
DX: R10.84 Generalized abdominal pain (principal); Z59.0 Homelessness; I48.91 Unspecified atrial fibrillation; K21.9 Gastro-esophageal reflux disease without esophagitis; E03.9 Hypothyroidism, unspecified; F20.9 Schizophrenia, unspecified; Z86.73 Personal history of transient ischemic attack (TIA), and cerebral infarction without residual deficits; Z88.6 Allergy status to analgesic agent
CPT/HCPCS: 36415; 71045; 74176; 80053; 81001; 85025; 93005; 99285-25

== ENCOUNTER 2020-10-07 00:11 | Emergency (ER) | payer OTHER ==
[~2020-10-07] VITALS: Ht 180.3 cm; Wt 69.1 kg
--- NOTE | 2020-10-07 00:17 | PHYS DOC ---
Past History Past Medical History: A-Fib, Anemia, Anxiety, Constipation, Depression, GERD, GI Bleed, Hypothyroid, Schizophrenia, Other Additional Past Medical Histor: Raynauds;[id number] Past Surgical History: Tonsillectomy, Other Additional Past Surgical Histo: duodenal surgery; hernia repair Smoking: Non-smoker Alcohol Use: None Drug Use: None General Adult HPI: HPI: ".. The voices are getting to me... They say people are after me... they will not shut up.... they are yelling all the time... I can't sleep... I know I got schizphenia... but I can't stand the voices.. all the time..." Patient is a 55 year old male who presents with above hx and complaints auditory hallucinations and paranoid delusions of people going to attack him. Patient has a long history of frequent ED visits for his psychosis and auditory hallucinations. Patient has followed at the [facility] in the past and was on monthly injections of antipsychotics. Patient has long history of noncompliance with his psychiatric meds. Patient has been noncompliant for follow-up for his other health issues until they become extreme such as AV malformations of GI, Lavelle Kern's Rendu disease, depression, DVTs, GERD, anemia, constipation, GI bleeding, Ovalcytosis, Thrombocytosis, HypoThryoidism, epistaxis and malnutrition. Patient's been previously admitted for anorexia and weakness due to voices telling him not to eat for extended periods of time. Patient not do alcohol or drugs. Patient as far as records reveal he has never had a positive drug screen. Patient does not smoke. No recent travel or specific ill contacts. This is patient's second visit to the ER in less than 8 hours. Patient in the past has been when compliant with his medications has had relatively stable schizophrenia. Has been on previous on Risperadal 1 mg e very night and Abilifly Aripiprazole 400mg 400 mg IM monthly. Patient in the past voices are 3 different females. Patient is hesitant to discuss specifics of the voices other than he has to listen to what they tell him to do. Patient passes surgical history significant for tonsillectomy, umbilical hernia repair, duodenal ulcer, teeth extractions, EGD and colonoscopic evaluations. Surgical control of a GI bleed. Patient is single, has no children , has never been , pt . no longer has contact with family members. Patient has been on complete disability due to his schizophrenia. Review of Systems: Review of Systems: Constitutional: Denies fever or chills Eyes: Denies change in visual acuity HENT: Denies nasal congestion or sore throat Respiratory: Denies cough or shortness of breath Cardiovascular: Denies chest pain or edema GI: Denies abdominal pain, nausea, vomiting, bloody stools or diarrhea : Denies dysuria Musculoskeletal: Denies back pain or joint pain Integument: Denies rash Neurologic: Denies headache, focal weakness or sensory changes Endocrine: Denies polyuria or polydipsia Lymphatic: Denies swollen glands Psychiatric: Hx. of depression,anxiety, hallucinations primary auditory, no suicidal ideation no homicidal ideations. Is having paranoid delusions people are out to get them. Family History: Family History: Patient has a family history of 2 brothers 1 older 1 younger. Mother age 66 because of diverticulitis and a bleed. Has not had contact with his father since 1985. Current Medications: Current Meds: See nursing for home meds Allergies: Allergies: Allergies Coded Allergies Type Severity Reaction Last Updated Verified aspirin Adverse Reaction Intermediate bleeding 10/06/20 Yes Physical Exam: PE: Constitutional: Emotional distress, non-toxic appearance. [] HENT: Normocephalic, atraumatic, bilateral external ears normal, oropharynx moist, no oral exudates, nose dried blood in the [place] area Eyes: PERRLA, EOMI, conjunctiva normal, no discharge. [] Neck: Normal range of motion, no tenderness, supple, no stridor. [] Cardiovascular:Heart rate regular rhythm, no murmur [] Lungs & Thorax: Bilateral breath sounds equal apex auscultation [] Abdomen: Bowel sounds normal, soft, no tenderness, no masses, no pulsatile masses. Old surgery scars Skin: Warm, dry, no erythema, no rash. [] Back: No tenderness, no CVA tenderness. [] Extremities: No tenderness, no cyanosis, no clubbing, ROM intact, no edema. No cording. Neurologic: Alert and oriented X 3, normal motor function, normal sensory function, no focal deficits noted. [] Psychologic: Affect , judgement normal, mood normal. [] Hearing voices.. Patient denies homicidal or suicidal ideation. EKG: EKG: Monitor shows sinus rhythm with no acute morphology rate 70 [] Radiology/Procedures: Radiology/Procedures: [] Heart Score: C/O Chest Pain: N/A Risk Factors: Risk Factors: DM, Current or recent (<one month) smoker, HTN, HLP, family history of CAD, obesity. Risk Scores: Score 0 - 3: 2.5% MACE over next 6 weeks - Discharge Home Score 4 - 6: 20.3% MACE over next 6 weeks - Admit for Clinical Observation Score 7 - 10: 72.7% MACE over next 6 weeks - Early Invasive Strategies Course & Med Decision Making: Course & Med Decision Making Pertinent Labs and Imaging studies reviewed. (See chart for details) See PAT psych. report. Patient to follow-up at -[facility]-.- - - - -0-5-1----7-5-9----5-6-2-0-.- - - Transfer arranged to [facility] by ambulance. Accepted by [facility] at [facility] Impression: 1. Schizophrenia 2. Nqhvu-Lnmwq-Mcxuu Dz 3. Auditory Hallucinations 4. Paranoid Delusions 5. Anxiety 6. Hx.Chronic anemia -hypochromic microcytic and oval cytosis ( today stable Hgb=14.2) 7. Hx.Non-compliance 8. Rapid COVID- negative tonight [] Dragon Disclaimer: Dragcindy Disclaimer: This electronic medical record was generated, in whole or in part, using a voice recognition dictation system. Departure Departure: Referrals: CRISS POWER MD (PCP) Eliazar Disclaimer This chart was dictated in whole or in part using Voice Recognition software in a busy, high-work load, and often noisy Emergency Department environment. It may contain unintended and wholly unrecognized errors or omissions. KENDELL STEWART MD Oct 07, 2020 00:17
[2020-10-07 00:35] VITALS: BP 106/62
[2020-10-07 00:48] LABS: BACTERIA,URINE FEW /HPF (0-FEW); BILIRUBIN,URINE NEG (NEG); CLARITY,URINE CLEAR; COLOR,URINE YELLOW; GLUCOSE,URINE 100 mg/dL (NEG); NITRITE,URINE NEG (NEG); RBC,URINE 0 /HPF (0-2); SQUAMOUS EPITHELIAL CELL,UR FEW /LPF; UROBILINOGEN,URINE 0.2 mg/dL (0.2 mg/dL); WBC,URINE 0 /HPF (0-4)
[2020-10-07 00:52] LABS: BARBITURATES NEG (NEG); BENZODIAZEPINES NEG (NEG); CANNABINOIDS NEG (NEG); COCAINE NEG (NEG); METHADONE NEG (NEG); OPIATES NEG (NEG); PHENCYCLIDINE NEG (NEG)
[2020-10-07 01:04] LABS: AMPHETAMINE/METHAMPHETAMINE NEG (NEG)
--- NOTE | 2020-10-10 16:20 | NUR ---
IP note: Pt COVID-19 test results negative; pt contacted 10/09/20 and 10/10/20, message left on voicemail where pt identifies by name, requesting return call "regarding lab results". Retry 10/11
== END 2020-10-07 04:58 | disposition short-term general hospital (02) ==
LOC: ER 00:11
DX: F20.0 Paranoid schizophrenia (principal); Z20.822 Contact with and (suspected) exposure to COVID-19; D50.0 Iron deficiency anemia secondary to blood loss (chronic); I78.0 Hereditary hemorrhagic telangiectasia; Z91.14 Patient's other noncompliance with medication regimen; I48.91 Unspecified atrial fibrillation; K21.9 Gastro-esophageal reflux disease without esophagitis; E03.9 Hypothyroidism, unspecified; Z88.6 Allergy status to analgesic agent
CPT/HCPCS: 36415; 80307; 81001; 87426; 99285; C9803; U0003; U0005; 99283

== ENCOUNTER 2020-10-16 16:57 | Emergency (ER) | payer OTHER ==
[~2020-10-16] VITALS: Ht 180.3 cm; Wt 69.1 kg
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
[2020-10-18 09:24] LABS: BASO % 1 % (0-3); EOS # 0.2 x10^3/uL (0.0-0.7); EOS % 4 % (0-3); HEMATOCRIT 44.9 % (39.0-53.0); LYMPH # 0.7 x10^3/uL (1.0-4.8); LYMPH % 12 % (24-48); MEAN CORPUSCULAR HEMOGLOBIN 24 pg (25-35); MEAN CORPUSCULAR HGB CONC 31 g/dL (31-37); MEAN CORPUSCULAR VOLUME 78 fL (79-100); MONO # 0.2 x10^3/uL (0.0-1.1); MONO % 4 % (0-9); NEUT % 80 % (31-73); PLATELET COUNT 275 x10^3/uL (140-400); RED BLOOD COUNT 5.78 x10^6/uL (4.30-5.70); RED CELL DISTRIBUTION WIDTH 30.9 % (11.5-14.5); WHITE BLOOD COUNT 6.2 x10^3/uL (4.0-11.0)
[2020-10-18 09:33] LABS: CALCIUM 8.9 mg/dL (8.5-10.1); GFR 78.2; POTASSIUM 4.5 mmol/L (3.5-5.1)
[2020-10-18 10:03] LABS: HYPOCHROMIA SLIGHT; PLT ESTIMATE ADEQUATE (ADEQUATE)
[2020-10-18 10:04] LABS: ANISOCYTOSIS MOD; STOMATOCYTES FEW; TEAR DROP CELLS FEW
[2020-10-18 10:34] VITALS: BP 132/80
[2020-10-18 11:11] LABS: BARBITURATES NEG (NEG); BENZODIAZEPINES NEG (NEG); CANNABINOIDS NEG (NEG); COCAINE NEG (NEG); METHADONE NEG (NEG); OPIATES NEG (NEG); PHENCYCLIDINE NEG (NEG)
[2020-10-18 11:13] LABS: AMPHETAMINE/METHAMPHETAMINE NEG (NEG)
[2020-10-18 11:17] LABS: BILIRUBIN,URINE NEG (NEG); CLARITY,URINE CLEAR; COLOR,URINE STRAW; GLUCOSE,URINE 100 mg/dL (NEG); UROBILINOGEN,URINE 0.2 mg/dL (0.2 mg/dL)
[2020-10-18 11:18] LABS: BACTERIA,URINE 0 /HPF (0-FEW); NITRITE,URINE NEG (NEG); RBC,URINE 0 /HPF (0-2); WBC,URINE 0 /HPF (0-4)
== END 2020-10-18 11:18 | disposition home or self-care (01) ==
LOC: ER 16:57
DX: F20.9 Schizophrenia, unspecified (principal); Z20.822 Contact with and (suspected) exposure to COVID-19; I48.91 Unspecified atrial fibrillation; K21.9 Gastro-esophageal reflux disease without esophagitis; E03.9 Hypothyroidism, unspecified; F41.9 Anxiety disorder, unspecified; F32.9 Major depressive disorder, single episode, unspecified; Z88.6 Allergy status to analgesic agent
CPT/HCPCS: 36415; 80048; 80307; 81001; 85025; 87426; 99285; G0480; U0003; 99283

== ENCOUNTER 2020-10-18 11:52 | Emergency (ER) | payer OTHER ==
[~2020-10-18] VITALS: Ht 180.3 cm; Wt 69.1 kg
--- NOTE | 2020-10-18 13:56 | PHYS DOC ---
Past History Past Medical History: Schizophrenia Additional Past Medical Histor: Raynauds;[id number] Past Surgical History: Tonsillectomy, Other Additional Past Surgical Histo: duodenal surgery; hernia repair Smoking: Non-smoker Alcohol Use: None Drug Use: None Adult General Chief Complaint Chief Complaint: PSYCH EVALUATION [facility] Patient is a 55-year-old male past medical history of schizophrenia who presents to the emergency room from court. Patient was found to be unable to make decisions or care for himself at this time. He is awaiting placement in an involuntary psychiatric facility. Patient has no complaints at this time. Review of Systems Review of Systems Complete ROS is negative unless otherwise documented in [facility] Allergies Allergies Allergies Coded Allergies Type Severity Reaction Last Updated Verified aspirin Adverse Reaction Intermediate bleeding 10/06/20 Yes Physical Exam Physical Exam General: Awake, alert, NAD. Well Nourished, well hydrated. Cooperative HEENT: Atraumatic, EOMI, PERRL, airway patent, moist oral mucosa Neck: Supple, trachea midline Respiratory: CTA bilaterally, normal effort, no wheezing/crackles CV: RRR, no murmur, cap refill <2 GI: Soft, nondistended, nontender, no masses MSK: No obvious deformities Skin: Warm, dry, intact Neuro: A&O x3, speech NL, sensory and motor grossly intact, no focal deficits Psych: Bizarre behavior, flat affect Current Patient Data Vital Signs Vital Signs Date Time Temp Pulse Resp B/P (MAP) Pulse Ox O2 Delivery O2 Flow Rate FiO2 10/18/20 12:00 97.6 68 18 132/70 (90) 99 Room Air EKG EKG [] Radiology/Procedures Radiology/Procedures [] Heart Score C/O Chest Pain: N/A Risk Factors: Risk Factors: DM, Current or recent (<one month) smoker, HTN, HLP, family history of CAD, obesity. Risk Scores: Risk Factors: DM, Current or recent (<one month) smoker, HTN, HLP, family history of CAD, obesity. Course & Med Decision Making Course & Med Decision Making Pertinent Labs and Imaging studies reviewed. (See chart for details) Patient is a 55-year-old male who presents to the emergency room awaiting baldev [employer] at a psychiatric facility. Patient is stable at this time. He has no complaints. Lab work was done during patient's visit earlier today. Dragon Disclaimer Dragon Disclaimer This electronic medical record was generated, in whole or in part, using a voice recognition dictation system. Departure Departure: Impression: Primary Impression: Schizophrenia [facility] Condition: STABLE Referrals: CRISS POWER MD (PCP) MEI SHRESTHA MD Oct 18, 2020 13:56
[2020-10-18 15:28] VITALS: BP 121/62
== END 2020-10-18 15:52 ==
LOC: ER 11:52
DX: F20.9 Schizophrenia, unspecified (principal); Z88.6 Allergy status to analgesic agent
CPT/HCPCS: 99285

== ENCOUNTER 2020-11-18 03:24 | Emergency (ER) | payer OTHER ==
[~2020-11-18] VITALS: Ht 180.3 cm; Wt 64.1 kg
[2020-11-18 04:20] VITALS: BP 110/60
--- NOTE | 2020-11-18 04:37 | PHYS DOC ---
Past History Past Medical History: Schizophrenia, Other Additional Past Medical Histor: Raynauds;[id number]-Kxgsy-Ardny Past Surgical History: Tonsillectomy, Other Additional Past Surgical Histo: duodenal surgery; hernia repair Smoking: Non-smoker Alcohol Use: None Drug Use: None Adult General Chief Complaint Chief Complaint: WEAKNESS/GENERALIZED HPI HPI Patient is a homeless 55-year-old male who presents to the emergency department with an actual chief complaint of homelessness, and wanting something to eat and drink. Patient states he gets tired of walking around and needed some rest and something to eat and drink here in the emergency department. Denies any medical complaints at this time. Denies need for work-up. Patient given something to eat and drink while in the emergency department. On evaluation patient stated that he was doing well and Asked If We Could Call Him a taxi. Review of Systems Review of Systems Review of systems otherwise unremarkable except noted in HPI Allergies Allergies Allergies Coded Allergies Type Severity Reaction Last Updated Verified aspirin Adverse Reaction Intermediate bleeding 10/06/20 Yes Physical Exam Physical Exam Constitutional: Well developed, well nourished, no acute distress, non-toxic appearance. [] HENT: Normocephalic, atraumatic, Eyes: conjunctiva normal, no discharge. [] Neck: Normal range of motion, Cardiovascular:Heart rate regular rhythm, no murmur [] Lungs & Thorax: No respiratory distress Skin: Warm, dry, no erythema, no rash. [] Extremities: ROM intact, no edema. [] Neurologic: Alert and oriented X 3, normal motor function, normal sensory function, no focal deficits noted able to sit without issue, able to walk without issue able to take p.o. without issue. [] Psychologic: Affect normal, judgement normal, mood normal. [] Current Patient Data Vital Signs Vital Signs Date Time Temp Pulse Resp B/P (MAP) Pulse Ox O2 Delivery O2 Flow Rate FiO2 11/18/20 03:35 98.2 74 16 121/68 (85) 96 Room Air EKG EKG [] Radiology/Procedures Radiology/Procedures [] Heart Score C/O Chest Pain: No Risk Factors: Risk Factors: DM, Current or recent (<one month) smoker, HTN, HLP, family history of CAD, obesity. Risk Scores: Risk Factors: DM, Current or recent (<one month) smoker, HTN, HLP, family history of CAD, obesity. Course & Med Decision Making Course & Med Decision Making Patient is a 55-year-old homeless male who presents to the emergency department for rest, something to eat or drink and asking us if we could call him a taxi so he can make it to a friend's house Vital signs not concerning. Physical exam noted above. Patient given a meal and a drink which he ate and tolerated well. Patient offered something else but politely stated he was full and was ready for us to call him a taxi. Patient stated that he has no medical complaints at this time and does not require us to draw any blood or do any imaging. Denies any SI, HI or hallucinations. Denies any alcohol or drug use. Called patient a taxi and patient left the emergency department, walking out on his own accord. Gave return precautions to the ED. Patient grateful, verbalized understanding and agreed with plan of discharge. [] Dragon Disclaimer Dragon Disclaimer This electronic medical record was generated, in whole or in part, using a voice recognition dictation system. Departure Departure: Impression: Primary Impression: Homeless single person Disposition: 01 HOME / SELF CARE / HOMELESS Condition: GOOD Referrals: CRISS POWER MD (PCP) Additional Instructions: You were seen in the emergency department to allow some rest and you were given a meal. You did not complain of any medical problems and did not want any medical work-up that was offered to you. After your meal you requested that we call you a taxi to give you a ride to your friend's house. Please contact your primary care physician when you can and set up a well visit. Please come back to the emergency department with any new or concerning symptoms as discussed. BENJIE MAN MD November 18, 2020 04:36
== END 2020-11-18 04:40 | disposition home or self-care (01) ==
LOC: ER 03:24
DX: Z59.0 Homelessness (principal); Z88.6 Allergy status to analgesic agent
CPT/HCPCS: 99281

== ENCOUNTER 2020-11-21 02:01 | Emergency (ER) | payer OTHER ==
[~2020-11-21] VITALS: Ht 180.3 cm; Wt 64.1 kg
[2020-11-21] MEDS ORDERED: ACETAMINOPHEN 325 MG TABLET PO ONE (02:15)
--- NOTE | 2020-11-21 02:16 | PHYS DOC ---
Past History Past Medical History: Schizophrenia, Other Additional Past Medical Histor: Raynauds;Gusun-Wbvhf-Kjhpg Past Surgical History: Tonsillectomy, Other Additional Past Surgical Histo: duodenal surgery; hernia repair Smoking: Non-smoker Alcohol Use: None Drug Use: None Adult General HPI HPI Patient is a 55-year-old male presenting for bilateral feet pain and swelling. Onset was 2 hours prior to arrival. Patient reports laying in bed trying to sleep when he states he developed pain in bilateral feet and concern for swelling. He has not taken anything in attempt to alleviate symptoms and subsequently contacted EMS for transport to our facility for evaluation. He has no recent trauma or known mechanism of injury. He has been at baseline health and takes all medications as scheduled. Does admit he has been more active in preceding 48 hours, states he has been walking around town. He is well-known to our facility, has history of [place] Rendu, has not had any issues with lower extremity vascular issues in the past Review of Systems Review of Systems Fourteen body systems of review of systems have been reviewed. See HPI for pertinent positives and negative responses, other yadav all other systems are negative, non-pertinent or non-contributory Allergies Allergies Allergies Coded Allergies Type Severity Reaction Last Updated Verified aspirin Adverse Reaction Intermediate bleeding 10/06/20 Yes Physical Exam Physical Exam Constitutional: Well developed, well nourished, no acute distress, non-toxic appearance. HENT: Normocephalic, atraumatic, bilateral external ears normal, oropharynx moist, no oral exudates, nose normal. Eyes: PERRLA, EOMI, conjunctiva normal, no discharge. Neck: Normal range of motion, no tenderness, supple, no stridor. Cardiovascular: Heart rate regular, sinus rhythm, no murmurs rubs or gallops Lungs & Thorax: Bilateral breath sounds clear to auscultation Abdomen: Bowel sounds normal, soft, no tenderness, no masses, no pulsatile masses. Nonsurgical abdomen, no peritoneal signs Skin: Warm, dry, no erythema, no rash. Back: No tenderness, no CVA tenderness. Extremities: No tenderness, no cyanosis, no clubbing, ROM intact, no edema. Negative Homans' sign bilaterally. No swelling noted in bilateral lower extremities. Dorsalis pedis and posterior tibial pulses 2+ in bilateral lower extremities with cap refill less than 2 seconds in all toes. 5/5 muscle strength of bilateral lower extremities. There is slight skin breakdown on right posterior heel that is superficial in nature involving epidermis only without any surrounding erythema, exudate, streaking etc. Neurologic: Alert and oriented X 3, normal motor & sensory function, no focal deficits noted. Psychologic: Flat affect, depressed mood EKG EKG [] Radiology/Procedures Radiology/Procedures [] Heart Score C/O Chest Pain: No Risk Factors: Risk Factors: DM, Current or recent (<one month) smoker, HTN, HLP, family history of CAD, obesity. Risk Scores: Risk Factors: DM, Current or recent (<one month) smoker, HTN, HLP, family history of CAD, obesity. Course & Med Decision Making Course & Med Decision Making Vital signs stable. HPI and physical exam nonconcerning for any emergent or surgical issues. Disclosed with patient physical exam findings that showed intact motor, sensory and neurovascular function in bilateral lower extremities. [place] ankle and foot rules negative. There is no swelling. Discussed little indication for ER work-up Discussed with patient feet injuries are likely due to recent overuse. I did disclose it might be an acute presentation of more concerning pathology given his underlying history of Jrlck-Qccut-Pvhwe. As such, I advised him to contact his primary care physician immediately when their office opens to review ER visit and discussed need for close outpatient follow-up by the end of the week Strict return precautions were discussed with good understanding by patient, all questions and concerns addressed prior to your departure Dragon Disclaimer Dragon Disclaimer This electronic medical record was generated, in whole or in part, using a voice recognition dictation system. Departure Departure: Impression: Primary Impression: Foot pain, bilateral Additional Impression: Schizoaffective disorder Disposition: 01 HOME / SELF CARE / HOMELESS Condition: STABLE Referrals: CRISS POWER MD (PCP) Additional Instructions: As discussed, your vital signs and physical exam were nonconcerning for any emergent or surgical findings. I disclosed little indication for further diagnostic work-up in ER setting based on your complaints in fact that you have had no trauma, mechanism of injury etc. As such, it is recommended that you contact your primary care physician first thing in the morning to review need for outpatient follow-up and reevaluation by the end of the week. Please return to the ER if you have any concerns or worsening of your condition as repeat evaluation and further work-up might be indicated. It was a pleasure to take care of you and I wish you the best going forward Problem Qualifiers CRUZ BHATT DO November 21, 2020 02:16
[2020-11-21] MEDS ORDERED: BACITRACIN ZINC TOPICAL OINT PACKET. TP ONE (02:30)
[2020-11-21 02:40] VITALS: BP 134/62
== END 2020-11-21 02:40 | disposition home or self-care (01) ==
LOC: ER 02:01
DX: M79.672 Pain in left foot (principal); M79.671 Pain in right foot; R22.43 Localized swelling, mass and lump, lower limb, bilateral; F25.9 Schizoaffective disorder, unspecified; Z88.6 Allergy status to analgesic agent
CPT/HCPCS: 99283

== ENCOUNTER 2020-11-23 18:36 | Emergency (ER) | payer OTHER ==
[~2020-11-23] VITALS: Ht 180.3 cm; Wt 64.1 kg
[2020-11-23 21:50] VITALS: BP 145/70
--- NOTE | 2020-11-23 21:53 | PHYS DOC ---
Past History Past Medical History: Schizophrenia, Other Additional Past Medical Histor: Raynauds;Zluvk-Insgf-Gijyz (NAZARIO NOWAK APRN) Past Surgical History: Tonsillectomy, Other Additional Past Surgical Histo: duodenal surgery; hernia repair (NAZARIO NOWAK APRN) Smoking: Non-smoker Alcohol Use: None Drug Use: None (NAZARIO NOWAK APRN) Adult General Chief Complaint Chief Complaint: LOWER EXT PAIN HPI HPI Patient is a 55-year-old male presents to the emergency department with chief complaint of abrasion to the top of his left foot. Patient states that his left foot has been hurting for several days now and notes that he had an abrasion on top of his foot. Patient states he has not tried to put any ointments or take any pain medicines for this pain. Patient denies any other physical complaints or physical concerns. (NAZARIO NOWAK APRN) Review of Systems Review of Systems 14 body systems of review of systems have been reviewed. See HPI for pertinent positives and negative responses, otherwise all other systems are negative, n onpertinent or noncontributory. (NAZARIO NOWAK APRN) Current Medications Current Medications Current Medications Medications (Trade) Dose Ordered Sig/Tomasz Start Time Stop Time Status Last Admin Dose Admin Acetaminophen/ Hydrocodone Bitart (Lortab 5/325) 1 tab 1X ONCE 11/23/20 22:00 11/23/20 22:01 Bacitracin (Bacitracin Topical Pkt) 1 pkt 1X ONCE 11/23/20 22:00 11/23/20 22:01 (NAZARIO NOWAK APRN) Allergies Allergies Allergies Coded Allergies Type Severity Reaction Last Updated Verified aspirin Adverse Reaction Intermediate bleeding 10/06/20 Yes (NAZARIO NOWAK APRN) Physical Exam Physical Exam Constitutional: Well developed, well nourished, no acute distress, non-toxic appearance. 55-year-old male in no apparent distress. HENT: Normocephalic, atraumatic, bilateral external ears normal, oropharynx moist, no oral exudates, nose normal. Eyes: PERRLA, EOMI, conjunctiva normal, no discharge. Neck: Normal range of motion, no tenderness, supple, no stridor. Cardiovascular:Heart rate regular rhythm, no murmur Lungs & Thorax: Bilateral breath sounds clear to auscultation Abdomen: Bowel sounds normal, soft, no tenderness, no masses, no pulsatile masses. Skin: Warm, dry, no erythema, no rash. See extremity note for skin assessment. Back: No tenderness, no CVA tenderness. Extremities: No tenderness, no cyanosis, no clubbing, ROM intact, no edema. Except for left foot. Patient has a 2 cm x 3 cm abrasion to the top of his left foot, no infectious process appreciated, no bleeding appreciated. Distal cap refill less than 2 seconds, no swelling appreciated. No bruising appreciated. 2+ dorsalis pedis, posterior tibial pulses. Neurologic: Alert and oriented X 3, normal motor function, normal sensory function, no focal deficits noted. Psychologic: Affect normal, judgement normal, mood normal. (NAZARIO NOWAK APRN) Current Patient Data Vital Signs Vital Signs Date Time Temp Pulse Resp B/P (MAP) Pulse Ox O2 Delivery O2 Flow Rate FiO2 11/23/20 18:43 97.5 79 16 139/69 (92) 99 Room Air (NAZARIO NOWAK APRN) EKG EKG [] (NAZARIO NOWAK APRN) Radiology/Procedures Radiology/Procedures [] (NAZARIO NOWAK APRN) Heart Score C/O Chest Pain: No Risk Factors: Risk Factors: DM, Current or recent (<one month) smoker, HTN, HLP, family history of CAD, obesity. Risk Scores: Risk Factors: DM, Current or recent (<one month) smoker, HTN, HLP, family history of CAD, obesity. (NAZARIO NOWAK APRN) Course & Med Decision Making Course & Med Decision Making Pertinent Labs and Imaging studies reviewed. (See chart for details) 55-year-old male, vital signs reviewed, presents emergency department complaining of an abrasion to the top of his left foot, patient does not recall how he got this. Physical examination revealed abrasion, no infectious process appreciated. We will treat with bacitracin and Band-Aid and wound care cleansing by ED nursing staff. Will give 2 Vicodin p.o. for pain. Discussed home instructions with patient, bacitracin use and wound care, patient gave verbal understanding of discharge home instructions, follow-up with primary care for ongoing pain, wound care at home, return to ER precautions or concerns. Patient had no further questions or concerns and was discharged home. (NAZARIO NOWAK APRN) Dragon Disclaimer Dragon Disclaimer This electronic medical record was generated, in whole or in part, using a voice recognition dictation system. (NAZARIO NOWAK APRN) Attending Co-Sign The patient was seen and interviewed as well as examined at the bedside. The chart was reviewed. The case was discussed. Agree with the plan of care. (DONTAE MCLEAN DO) Departure Departure: Impression: Primary Impression: Abrasion, left foot, initial encounter Disposition: HOME / SELF CARE / HOMELESS Condition: GOOD Referrals: CRISS POWER MD (PCP) Patient Instructions: Abrasions Additional Instructions: You are seen in the emergency department today for left foot pain. You have an abrasion to the top of your foot, it was cleansed and dressed with bacitracin by the ED nursing staff. Please continue to perform wound care and apply bacitracin ointment at least 3 times a day. Follow-up with your primary care physician for ongoing symptoms of pain. Return to the emergency department for worsening symptoms or other concerns. EMERGENCY DEPARTMENT GENERAL DISCHARGE INSTRUCTIONS Thank you for coming to [facility] (ED) today and trusting us with you care. We trust that you had a positivie experience in our Emergency Department. If you wish to speak to the department management, you may call the director at [phone]. YOUR FOLLOW UP INSTRUCTIONS ARE FOLLOWS: 1. Do you have a private Doctor? If you do not have a private doctor, please ask for a resource list of physicians or clinics that may be able to assist you with follow up care. 2. The Emergency Physician has interpreted your x-rays. The X-Ray specialist will also review them. If there is a change in the findings, you will be notified in 48 hours when at all possible. 3. A lab test or culture has been done, your results will be reviewed and you will be notified if you need a change in treatment. ADDITIONAL INSTRUCTIONS AND INFORMATION: 1. Your care today has been supervised by a physician who is specially trained in emergency care. Many problems require more than one evaluation for a complete diagnosis and treatment. We recommend that you schedule your follow up appointment as recommended to ensure complete treatment of you illness or injury. If you are unable to obtain follow up care and continue to have a problem, or if your condition worsens, we recommend that you return to the ED. 2. We are not able to safely determine your condition over the phone nor are we able to give sound medical advice over the phone. For these safety reasons, if you call for medical advice we will ask you to come to the ED for further evaluation. 3. If you have any questions regarding these discharge instructions please call the ED at [phone]. SAFETY INFORMATION: In the interest of safety, wellness, and injury prevention; we encourage you to wear your sealbelt, if you smoke; quite smoking, and we encourage family to use a protective helmet for bicycling and other sporting events that present an increased risk for head injury. IF YOUR SYMPTOMS WORSEN OR NEW SYMPTOMS DEVELOP, OR YOU HAVE CONCERNS ABOUT YOUR CONDITION; OR IF YOUR CONDITION WORSENS WHILE YOU ARE WAITING FOR YOUR FOLLOW UP APPOINTMENT; EITHER CONTACT YOUR PRIMARY CARE DOCTOR, THE PHYSICIAN WHOSE NAME AND NUMBER YOU WERE GIVEN, OR RETURN TO THE ED IMMEDIATELY. NAZARIO NOWAK APRN November 23, 2020 21:53 DONTAE MCLEAN DO November 23, 2020 23:47
[2020-11-23] MEDS ORDERED: HYDROcodone/APAP 5/325MG 1 TAB TABLET PO ONE (22:00)
[2020-11-23] MEDS ORDERED: BACITRACIN ZINC TOPICAL OINT PACKET. TP ONE (22:00)
== END 2020-11-23 21:57 | disposition home or self-care (01) ==
LOC: ER 18:36
DX: S90.812A Abrasion, left foot, initial encounter (principal); X58.XXXA Exposure to other specified factors, initial encounter; Y93.89 Activity, other specified; Y92.89 Other specified places as the place of occurrence of the external cause; Y99.8 Other external cause status
CPT/HCPCS: 99283-25

== ENCOUNTER 2020-12-13 17:27 | Emergency (ER) | payer OTHER ==
[~2020-12-13] VITALS: Ht 180.3 cm; Wt 69.0 kg
[2020-12-13 17:39] VITALS: BP 138/72
[2020-12-13] MEDS ORDERED: IV NORMAL SALINE 1,000ML 1,000 ML IV ONE (18:00)
[2020-12-13 18:41] LABS: CREATININE 1.4 mg/dL (0.7-1.3); POTASSIUM 3.7 mmol/L (3.5-5.1)
[2020-12-13 18:46] LABS: BASO % 1 % (0-3); EOS # 0.3 x10^3/uL (0.0-0.7); EOS % 6 % (0-3); HEMATOCRIT 36.2 % (39.0-53.0); HEMOGLOBIN 10.5 g/dL (13.0-17.5); LYMPH % 20 % (24-48); MEAN CORPUSCULAR HEMOGLOBIN 23 pg (25-35); MEAN CORPUSCULAR HGB CONC 29 g/dL (31-37); MEAN CORPUSCULAR VOLUME 80 fL (79-100); MONO # 0.4 x10^3/uL (0.0-1.1); MONO % 7 % (0-9); NEUT # 3.3 x10^3uL (1.8-7.7); NEUT % 66 % (31-73); PLATELET COUNT 335 x10^3/uL (140-400); RED BLOOD COUNT 4.55 x10^6/uL (4.30-5.70); RED CELL DISTRIBUTION WIDTH 21.3 % (11.5-14.5)
[2020-12-13 18:49] LABS: % LYMPHS 27 % (24-48); % MONOS 5 % (0-10); % SEGS 68 % (35-66); ANISOCYTOSIS MOD; MICROCYTOSIS SLIGHT; PLT ESTIMATE ADEQUATE (ADEQUATE)
[2020-12-13] MEDS ORDERED: CALCIUM CARBONATE 500 MG TABLET PO ONE (19:30)
--- NOTE | 2020-12-13 19:44 | PHYS DOC ---
Past History Past Medical History: GERD, GI Bleed, [place], Schizophrenia, Other Additional Past Medical Histor: Raynauds;Vxtuc-Tvvbb-Oyjca (NAZARIO NOWAK APRN) Past Surgical History: Tonsillectomy, Other Additional Past Surgical Histo: duodenal surgery; hernia repair (NAZARIO NOWAK APRN) Smoking: Non-smoker Alcohol Use: None Drug Use: None (NAZARIO NOWAK APRN) Adult General Chief Complaint Chief Complaint: NEAR SYCOPE HPI HPI Patient is a 55-year-old male who presents to the emergency department with chief complaint of lightheadedness after walking for 3 hours outside. Patient states he felt as if he might pass out, however he is feeling much better now since he is in a cool environment. Patient denies syncopal episode, denies chest pain, denies shortness of breath, denies any recent fever or chills. Patient denies cough or congestion. Patient denies visual disturbances, denies homicidal or suicidal ideations. Patient denies changes in his home medications. Patient states he has not taken any medications. Patient states he does not drink alcohol, does not smoke cigarettes, does not use any illicit drugs. Patient denies any other physical complaints or physical concerns. (NAZARIO NOWAK APRN) Review of Systems Review of Systems 14 body systems of review of systems have been reviewed. See HPI for pertinent positives and negative responses, otherwise all other systems are negative, nonpertinent or noncontributory. (NAZARIO NOWAK APRN) Current Medications Current Medications Current Medications Medications (Trade) Dose Ordered Sig/Tomasz Start Time Stop Time Status Last Admin Dose Admin Calcium Carbonate/ Glycine (Oscal) 500 mg 1X ONCE 12/13/20 19:30 12/13/20 19:31 DC Sodium Chloride 1,000 ml @ 1,000 mls/hr 1X ONCE 12/13/20 18:00 12/13/20 18:59 DC 12/13/20 18:22 1,000 MLS/HR (NAZARIO NOWAK APRN) Allergies Allergies Allergies Coded Allergies Type Severity Reaction Last Updated Verified aspirin Adverse Reaction Intermediate bleeding 12/13/20 Yes (NAZARIO ONWAK APRN) Physical Exam Physical Exam Constitutional: Well developed, well nourished, no acute distress, non-toxic appearance. 55-year-old male in no apparent distress. HENT: Normocephalic, atraumatic, bilateral external ears normal, no oral exudates, nose normal. Tongue sticky, oropharynx pink, not erythematous, no peritonsillar swelling, no uvular swelling, no laryngeal swelling appreciated, no postnasal drip. No deep tissue infectious process appreciated. Bilateral TMs within normal limits, no drainage from bilateral external auditory canals. Eyes: PERRLA, EOMI, conjunctiva normal, no discharge. Neck: Normal range of motion, no tenderness, supple, no stridor. Cardiovascular:Heart rate regular rhythm, no murmur, heart sounds S1-S2 to ausc ultation. Lungs & Thorax: Bilateral breath sounds clear to auscultation no adventitious lung sounds appreciated. Abdomen: Bowel sounds normal, soft, no tenderness, no masses, no pulsatile masses. Skin: Warm, dry, no erythema, no rash. Back: No tenderness, no CVA tenderness. Extremities: No tenderness, no cyanosis, no clubbing, ROM intact, no edema. Neurologic: Alert and oriented X 3, normal motor function, normal sensory function, no focal deficits noted. Psychologic: Affect normal, judgement normal, mood normal. (NAZARIO NOWAK APRN) Current Patient Data Vital Signs Vital Signs Date Time Temp Pulse Resp B/P (MAP) Pulse Ox O2 Delivery O2 Flow Rate FiO2 12/13/20 17:39 98.2 73 20 138/72 (94) Room Air Lab Results Laboratory Tests Test 12/13/20 18:18 White Blood Count 5.0 x10^3/uL (4.0-11.0) Red Blood Count 4.55 x10^6/uL (4.30-5.70) Hemoglobin 10.5 g/dL (13.0-17.5) L Hematocrit 36.2 % (39.0-53.0) L Mean Corpuscular Volume 80 fL (79-100) Mean Corpuscular Hemoglobin 23 pg (25-35) L Mean Corpuscular Hemoglobin Concent 29 g/dL (31-37) L Red Cell Distribution Width 21.3 % (11.5-14.5) H Platelet Count 335 x10^3/uL (140-400) Neutrophils (%) (Auto) 66 % (31-73) Lymphocytes (%) (Auto) 20 % (24-48) L Monocytes (%) (Auto) 7 % (0-9) Eosinophils (%) (Auto) 6 % (0-3) H Basophils (%) (Auto) 1 % (0-3) Neutrophils # (Auto) 3.3 x10^3uL (1.8-7.7) Lymphocytes # (Auto) 1.0 x10^3/uL (1.0-4.8) Monocytes # (Auto) 0.4 x10^3/uL (0.0-1.1) Eosinophils # (Auto) 0.3 x10^3/uL (0.0-0.7) Basophils # (Auto) 0.0 x10^3/uL (0.0-0.2) Segmented Neutrophils % 68 % (35-66) H Lymphocytes % 27 % (24-48) Monocytes % 5 % (0-10) Platelet Estimate Adequate (ADEQUATE) Anisocytosis Mod Microcytosis Slight Sodium Level 142 mmol/L (136-145) Potassium Level 3.7 mmol/L (3.5-5.1) Chloride Level 107 mmol/L (98-107) Carbon Dioxide Level 24 mmol/L (21-32) Anion Gap 11 (6-14) Blood Urea Nitrogen 12 mg/dL (8-26) Creatinine 1.4 mg/dL (0.7-1.3) H Estimated GFR (Cockcroft-Gault) 53.0 Glucose Level 73 mg/dL (70-99) Calcium Level 8.0 mg/dL (8.5-10.1) L (NAZARIO NOWAK APRN) EKG EKG [] (NAZARIO NOWAK APRN) Radiology/Procedures Radiology/Procedures [] (NAZARIO NOWAK APRN) Heart Score C/O Chest Pain: No Risk Factors: Risk Factors: DM, Current or recent (<one month) smoker, HTN, HLP, family history of CAD, obesity. Risk Scores: Risk Factors: DM, Current or recent (<one month) smoker, HTN, HLP, family hist ory of CAD, obesity. (NAZARIO NOWAK APRN) Course & Med Decision Making Course & Med Decision Making Pertinent Labs and Imaging studies reviewed. (See chart for details) 55-year-old male, vital signs reviewed, resents emergency department with complaints of dizziness after walking for 3 hours outside. Patient does state that he feels much better since being in a cooler environment. Physical examination concerning for possible dehydration related to sticky tongue mucosa. Will order CBC, BMP, IV saline lock with 1 L normal saline. Patient was amenable to this plan. Patient was not hemoconcentrated however patient's creatinine up from previous visit 1.0-1.4. Most likely related to dehydration related to patient's statement of walking outside as it was over 90 degrees with heat index. Upon reevaluation of the patient after 1 L of normal saline, patient states that he feels much better and wishes to go home. Patient denies any dizziness, denies any other physical complaints. Patient is nontoxic in appearance. Discussed with patient staying hydrated during warmer weather, patient states he usually tries to drink water sometimes he forgets. Patient gave verbal understanding discharge home instructions, follow-up with PCP tomorrow, return to ER precautions or concerns, patient was discharged home without incident. (NAZARIO NOWAK APRN) Dragon Disclaimer Dragon Disclaimer This electronic medical record was generated, in whole or in part, using a voice recognition dictation system. (NAZARIO NOWAK APRN) Attending Co-Sign The patient was seen and interviewed as well as examined at the bedside. The chart was reviewed. The case was discussed. Agree with the plan of care. (DONTAE MCLEAN DO) Departure Departure: Impression: Primary Impression: Dehydration after exertion Disposition: 01 HOME / SELF CARE / HOMELESS Condition: GOOD Referrals: CRISS POWER MD (PCP) Patient Instructions: Dehydration, Adult Additional Instructions: You are seen today in the emergency department, your lab work indicated you were dehydrated, you felt much better after your IV fluid infusion, please increase your fluid intake during warmer weather outside. Please follow-up with your primary care physician Dr. Power tomorrow. Please return to the emergency department for worsening symptoms or other concerns. EMERGENCY DEPARTMENT GENERAL DISCHARGE INSTRUCTIONS Thank you for coming to [facility] (ED) today and trusting us with you care. We trust that you had a positivie experience in our Emergency Department. If you wish to speak to the department management, you may call the director at [phone]. YOUR FOLLOW UP INSTRUCTIONS ARE FOLLOWS: 1. Do you have a private Doctor? If you do not have a private doctor, please ask for a resource list of physicians or clinics that may be able to assist you with follo w up care. 2. The Emergency Physician has interpreted your x-rays. The X-Ray specialist will also review them. If there is a change in the findings, you will be notified in 48 hours when at all possible. 3. A lab test or culture has been done, your results will be reviewed and you will be notified if you need a change in treatment. ADDITIONAL INSTRUCTIONS AND INFORMATION: 1. Your care today has been supervised by a physician who is specially trained in emergency care. Many problems require more than one evaluation for a complete diagnosis and treatment. We recommend that you schedule your follow up appointment as rec ommended to ensure complete treatment of you illness or injury. If you are unable to obtain follow up care and continue to have a problem, or if your condition worsens, we recommend that you return to the ED. 2. We are not able to safely determine your condition over the phone nor are we able to give sound medical advice over the phone. For these safety reasons, if you call for medical advice we will ask you to come to the ED for further evaluation. 3. If you have any questions regarding these discharge instructions please call the ED at [phone]. SAFETY INFORMATION: In the interest of safety, wellness, and injury prevention; we encourage you to wear your sealbelt, if you smoke; quite smoking, and we encourage family to use a protective helmet for bicycling and other sporting events that present an increased risk for head injury. IF YOUR SYMPTOMS WORSEN OR NEW SYMPTOMS DEVELOP, OR YOU HAVE CONCERNS ABOUT YOUR CONDITION; OR IF YOUR CONDITION WORSENS WHILE YOU ARE WAITING FOR YOUR FOLLOW UP APPOINTMENT; EITHER CONTACT YOUR PRIMARY CARE DOCTOR, THE PHYSICIAN WHOSE NAME AND NUMBER YOU WERE GIVEN, OR RETURN TO THE ED IMMEDIATELY. NAZARIO NOWAK APRN Dec 13, 2020 19:44 DONTAE MCLEAN DO Dec 14, 2020 04:02
== END 2020-12-13 20:08 | disposition home or self-care (01) ==
LOC: ER 17:27
DX: E86.0 Dehydration (principal); K21.9 Gastro-esophageal reflux disease without esophagitis; I25.2 Old myocardial infarction; F20.9 Schizophrenia, unspecified; Z88.6 Allergy status to analgesic agent
CPT/HCPCS: 36415; 80048; 85007; 85025; 96360; 99283; J7030

== ENCOUNTER 2020-12-31 17:33 | Emergency (ER) | payer OTHER ==
[~2020-12-31] VITALS: Ht 180.3 cm; Wt 66.0 kg
--- NOTE | 2020-12-31 17:49 | PHYS DOC ---
Past History Past Medical History: Constipation, GERD, GI Bleed, [place], Schizophrenia, Other Additional Past Medical Histor: Raynauds;Shiac-Tfbxp-Anyja Past Surgical History: Tonsillectomy, Other Additional Past Surgical Histo: duodenal surgery; hernia repair Smoking: Non-smoker Alcohol Use: None Drug Use: None General Adult EDM: Chief Complaint: ABDOMINAL PAIN HPI: HPI: ".. I feel bloated.. some stomach pain... the voices told me to come.. I don't go to Dr. Power.. I just come here.... the voices told to get checked today... I feel bloated... did have one loose stool.. it was not black or bloody..." Patient is a 55 year old male who presents with above hx and complaints of abdomen pain. Patient denies any intake of bad food. Patient denies any trauma. Patient denies sick ill contacts. Patient states the voices told him to come in and get checked out.. Pt. follows with at this time. Patient however advised that he does not go to the [facility]. Patient is also stop going to the counseling center for his monthly injection of psychotropics. Patient is well-known to ER staff for frequent ED visits. Patient has longstanding chronic schizophrenia of periodic exacerbations. Patient has hallucinations of 3 voices that tell him what to do. Patient Patient underlying health problems of Pdboc-Bfhdo-Jnfzr, microcytic hyperchromic anemia, thrombocytosis, oval cytosis, hypothyroidism, Raynaud's phenomenon, GERD and chronic noncompliance. Patient does have a past medical history of tonsillectomy umbilical hernia repair teeth extractions EGDs and colonoscopy scopic evaluations. Has had surgical repair of duodenal ulcer. Does have a current place to stay at [address] [place] [address], [phone]. Patient currently has 2 brothers in [facility] and voices that are telling him not to talk to them. Patient did report he had been hospitalized for a psych complaints in the last 6 months and that is why he has not been frequent visiting the emergency department. ar Review of Systems: Review of Systems: Constitutional: Denies fever or chills Eyes: Denies change in visual acuity HENT: Denies nasal congestion or sore throat Respiratory: Denies cough or shortness of breath Cardiovascular: Denies chest pain or edema GI: Complains of generalized abdominal pain, nausea, and loose stools but not diarrhea diarrhea : Denies dysuria Musculoskeletal: Denies back pain or joint pain Integument: Denies rash Neurologic: Denies headache, focal weakness or sensory changes Endocrine: Denies polyuria or polydipsia Lymphatic: Denies swollen glands Psychiatric: Denies depression or anxiety Family History: Family History: 2 brothers. Mother at 66 with diagnosis of diverticulitis has not seen father since 1985 Current Medications: Current Meds: See nursing for home meds Allergies: Allergies: Allergies Coded Allergies Type Severity Reaction Last Updated Verified aspirin Adverse Reaction Intermediate bleeding 12/13/20 Yes Physical Exam: PE: Constitutional:no acute distress, non-toxic appearance. [] Patient's closed today are clean and appear to be new. HENT: Normocephalic, atraumatic, bilateral external ears normal, oropharynx moist, no oral exudates, nose normal. Capillary cuffing at the [place] Eyes: PERRLA, EOMI, conjunctiva normal, no discharge. [] Neck: Normal range of motion, no tenderness, supple, no stridor. [] Cardiovascular:Heart rate regular rhythm, no murmur [] Lungs & Thorax: Bilateral breath sounds equal apex auscultation [] Abdomen: Bowel sounds normal, soft, mild generalized tenderness, no masses, no pulsatile masses. Declined rectal at this time. Old surgery scars. No focal areas of rebound Skin: Warm, dry, no erythema, no rash. Cap refill less than 2 seconds fingers Back: No tenderness, no CVA tenderness. [] Extremities: No tenderness, no cyanosis, no clubbing, ROM intact, no edema. No psoas sign. Neurologic: Alert and oriented X 3, normal motor function, normal sensory function, no focal deficits noted. [] Psychologic: Affect n anxious judgement normal, mood normal. [] Does admit to hallucinations and hearing 3 female voices telling him to come to the emergency department. No suicidal homicidal ideations. EKG: EKG: [] Radiology/Procedures: Radiology/Procedures: [] Heart Score: C/O Chest Pain: N/A Risk Factors: Risk Factors: DM, Current or recent (<one month) smoker, HTN, HLP, family history of CAD, obesity. Risk Scores: Score 0 - 3: 2.5% MACE over next 6 weeks - Discharge Home Score 4 - 6: 20.3% MACE over next 6 weeks - Admit for Clinical Observation Score 7 - 10: 72.7% MACE over next 6 weeks - Early Invasive Strategies Course & Med Decision Making: Course & Med Decision Making Pertinent Labs and Imaging studies reviewed. (See chart for details) Discussed options for treatment with patient. Agrees to take Pepcid Carafate and Zofran. Encourage patient to keep follow-up with Dr. Power. Encourage patient to present to the counseling center the get his monthly antipsychotic Depo med. Patient advised he currently does not have a automation technologist that checks in on him. Impression: 1. Abdomen pain 2. Schizophrenia 3. Hallucinations [] Dragon Disclaimer: Dragon Disclaimer: This electronic medical record was generated, in whole or in part, using a voice recognition dictation system. Departure Departure: Referrals: CRISS POWER MD (PCP) Scripts Famotidine (PEPCID) 20 Mg Tablet 20 MG PO BID for GERD, Ulcer for 30 Days, #60 TAB Prov: KENDELL STEWRAT MD 12/31/20 Eliazar Disclaimer This chart was dictated in whole or in part using Voice Recognition software in a busy, high-work load, and often noisy Emergency Department environment. It may contain unintended and wholly unrecognized errors or omissions. KENDELL STEWART MD Dec 31, 2020 17:49
[2020-12-31] MEDS ORDERED: FAMOTIDINE 20 MG TABLET PO ONE (18:00)
[2020-12-31] MEDS ORDERED: SUCRALFATE 1 GM TABLET. PO ONE (18:00)
[2020-12-31] MEDS ORDERED: ACETAMINOPHEN 500 MG TABLET PO ONE (18:00)
[2020-12-31] MEDS ORDERED: FAMO-63 PO (18:04)
[2020-12-31] MEDS ORDERED: ONDANSETRON ODT 4 MG TAB.RAPDIS PO ONE (18:15)
[2020-12-31 19:00] VITALS: BP 123/73
== END 2020-12-31 19:00 | disposition home or self-care (01) ==
LOC: ER 17:33
DX: F20.9 Schizophrenia, unspecified (principal); R10.84 Generalized abdominal pain; R19.7 Diarrhea, unspecified; E03.9 Hypothyroidism, unspecified; K21.9 Gastro-esophageal reflux disease without esophagitis; I25.2 Old myocardial infarction; Z88.6 Allergy status to analgesic agent
CPT/HCPCS: 99284; Q0162

== ENCOUNTER 2021-02-03 19:16 | Emergency (ER) | payer OTHER ==
[~2021-02-03] VITALS: Ht 180.3 cm; Wt 66.0 kg
[~2021-02-03 19:16] MED LIST changes: +FAMO-63 PO
[2021-02-03 20:07] VITALS: BP 134/80
--- NOTE | 2021-02-03 20:24 | PHYS DOC ---
Past History Past Medical History: Constipation, GERD, GI Bleed, [place], Schizophrenia, Other Additional Past Medical Histor: Raynauds;Sghll-Xhcxg-Bdmoe Past Surgical History: Tonsillectomy, Other Additional Past Surgical Histo: duodenal surgery; hernia repair Smoking: Non-smoker Alcohol Use: None Drug Use: None General Adult EDM: Chief Complaint: OTHER COMPLAINTS HPI: HPI: 55-year-old male returns the emergency room with complaints of syncopal episodes. Patient is well-known to the ER. He has been outside walking around a lot the last few days. It has been very hot and humid. Patient states that he has had 2 or 3 syncopal episodes. Each time he has been sitting in a chair and then wakes up. He denies any falls or injuries. He does feel like he has had decreased urinary output and is concerned about dehydration. He has no other specific complaints at this time. Review of Systems: Review of Systems: Constitutional: Denies fever or chills Eyes: Denies change in visual acuity HENT: Denies nasal congestion or sore throat Respiratory: Denies cough or shortness of breath Cardiovascular: Denies chest pain or edema GI: Denies abdominal pain, nausea, vomiting, bloody stools or diarrhea : decreased urination Musculoskeletal: Denies back pain or joint pain Integument: Denies rash Neurologic: Syncope. Denies headache, focal weakness or sensory changes Endocrine: Denies polyuria or polydipsia Lymphatic: Denies swollen glands Psychiatric: Denies depression or anxiety Allergies: Allergies: Allergies Coded Allergies Type Severity Reaction Last Updated Verified aspirin Adverse Reaction Intermediate bleeding 12/13/20 Yes Physical Exam: PE: Constitutional: Well developed, well nourished, no acute distress, non-toxic appearance. [] HENT: Normocephalic, atraumatic, bilateral external ears normal, oropharynx moist, no oral exudates, nose normal. [] Eyes: PERRLA, EOMI, conjunctiva normal, no discharge. [] Neck: Normal range of motion, no tenderness, supple, no stridor. [] Cardiovascular:Heart rate regular rhythm, no murmur [] Lungs & Thorax: Bilateral breath sounds clear to auscultation [] Abdomen: Bowel sounds normal, soft, no tenderness, no masses, no pulsatile masses. [] Skin: Warm, dry, no erythema, no rash. [] Back: No tenderness, no CVA tenderness. [] Extremities: No tenderness, no cyanosis, no clubbing, ROM intact, no edema. [] Neurologic: Alert and oriented X 3, normal motor function, normal sensory function, no focal deficits noted. [] Psychologic: Affect normal, judgement normal, mood normal. [] Current Patient Data: Vital Signs: Vital Signs Date Time Temp Pulse Resp B/P (MAP) Pulse Ox O2 Delivery O2 Flow Rate FiO2 02/03/21 20:07 97.5 85 18 134/80 99 Room Air EKG: EKG: Sinus rhythm, rate 76, normal axis, no ST elevation or depression. [] Radiology/Procedures: Radiology/Procedures: [] Impressions: XR CHEST 1V CLINICAL INDICATIONS: Reason: syncope COMPARISON: October 06, 2020. Findings: No acute lung infiltrate or pleural effusion or pulmonary edema or lung mass or pneumothorax is seen. The heart size, pulmonary vasculature, mediastinum and both beni are unremarkable. IMPRESSION: No acute radiographic abnormality is seen. Electronically signed by: Brittani Obando MD (02/03/2021 10:00 PM) [id number] DICTATED AND SIGNED BY: BRITTANI OBANDO MD DATE: 02/03/212158 CC: DONTAE MCLEAN DO; CRISS POWER MD ~MTH0 0 Heart Score: C/O Chest Pain: N/A Risk Factors: Risk Factors: DM, Current or recent (<one month) smoker, HTN, HLP, family history of CAD, obesity. Risk Scores: Score 0 - 3: 2.5% MACE over next 6 weeks - Discharge Home Score 4 - 6: 20.3% MACE over next 6 weeks - Admit for Clinical Observation Score 7 - 10: 72.7% MACE over next 6 weeks - Early Invasive Strategies Course & Med Decision Making: Course & Med Decision Making Pertinent Labs and Imaging studies reviewed. (See chart for details) The patient's EKG is unremarkable. His chest x-ray is negative for acute findings. His labs are significant for anemia but it is better than his usual labs in the chart. The patient appears to be dehydrated. We will give him a liter of normal saline. We have encouraged him to drink more fluids and electrolytes and decrease his outdoor activity if possible. He is stable for discharge at this time. [] Dragon Disclaimer: Dragon Disclaimer: This electronic medical record was generated, in whole or in part, using a voice recognition dictation system. Departure Departure: Impression: Primary Impression: Syncope Additional Impression: Dehydration after exertion Disposition: 01 HOME / SELF CARE / HOMELESS Condition: STABLE Referrals: CRISS POWER MD (PCP) Patient Instructions: Dehydration, Adult, Zjvu-[id number], Syncope, Vuxs-[id number] DONTAE MCLEAN DO Feb 03, 2021 20:24
[2021-02-03] MEDS ORDERED: IV NORMAL SALINE 1,000ML 1,000 ML IV ONE (20:30)
[2021-02-03 21:07] LABS: BASO # 0.1 x10^3/uL (0.0-0.2); BASO % 1 % (0-3); EOS # 0.2 x10^3/uL (0.0-0.7); EOS % 3 % (0-3); HEMATOCRIT 37.7 % (39.0-53.0); HEMOGLOBIN 11.4 g/dL (13.0-17.5); LYMPH # 1.4 x10^3/uL (1.0-4.8); LYMPH % 20 % (24-48); MEAN CORPUSCULAR HEMOGLOBIN 20 pg (25-35); MEAN CORPUSCULAR HGB CONC 30 g/dL (31-37); MEAN CORPUSCULAR VOLUME 67 fL (79-100); MONO # 0.7 x10^3/uL (0.0-1.1); MONO % 10 % (0-9); NEUT # 4.7 x10^3uL (1.8-7.7); NEUT % 67 % (31-73); PLATELET COUNT 407 x10^3/uL (140-400); RED BLOOD COUNT 5.63 x10^6/uL (4.30-5.70); RED CELL DISTRIBUTION WIDTH 20.5 % (11.5-14.5)
[2021-02-03 21:18] LABS: CALCIUM 8.9 mg/dL (8.5-10.1); GFR 78.2; POTASSIUM 3.9 mmol/L (3.5-5.1)
--- NOTE | 2021-02-03 21:23 | EKG ---
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
[2021-02-03 21:25] LABS: ALBUMIN 4.4 g/dL (3.4-5.0); ALBUMIN/GLOBULIN RATIO 1.3 (1.0-1.7); TOTAL BILIRUBIN 0.7 mg/dL (0.2-1.0); TOTAL PROTEIN 7.8 g/dL (6.4-8.2)
[2021-02-03 21:41] LABS: HYPOCHROMIA MOD; PLT ESTIMATE ADEQUATE (ADEQUATE); POLYCHROMASIA SLIGHT
[2021-02-03 21:42] LABS: ANISOCYTOSIS MOD; MICROCYTOSIS MOD; OVALOCYTES FEW; SCHISTOCYTES OCC; TEAR DROP CELLS FEW
--- NOTE | 2021-02-03 22:02 | RAD ---
XR CHEST 1V CLINICAL INDICATIONS: Reason: syncope COMPARISON: October 06, 2020. Findings: No acute lung infiltrate or pleural effusion or pulmonary edema or lung mass or pneumothora x is seen. The heart size, pulmonary vasculature, mediastinum and both beni are unremarkable. IMPRESSION: No acute radiographic abnormality is seen. Electronically signed by: Venkata Obando MD (02/03/2021 10:00 PM) [id number]
== END 2021-02-03 22:23 | disposition home or self-care (01) ==
LOC: ER 19:16
DX: R55 Syncope and collapse (principal); E86.0 Dehydration; K21.9 Gastro-esophageal reflux disease without esophagitis; I25.2 Old myocardial infarction; F20.9 Schizophrenia, unspecified; Z88.6 Allergy status to analgesic agent
CPT/HCPCS: 36415; 71045; 80053; 84484; 85025; 93005; 96360; 99285; J7030

== ENCOUNTER 2021-02-05 16:55 | Emergency (ER) | payer OTHER ==
[~2021-02-05] VITALS: Ht 180.3 cm; Wt 66.0 kg
[2021-02-05 17:02] VITALS: BP 117/68
[2021-02-05] MEDS ORDERED: ACETAMINOPHEN 500 MG TABLET PO ONE (18:30)
[2021-02-05 18:50] LABS: BACTERIA,URINE 0 /HPF (0-FEW); BILIRUBIN,URINE NEG (NEG); CLARITY,URINE CLEAR; COLOR,URINE YELLOW; GLUCOSE,URINE 100 mg/dL (NEG); NITRITE,URINE NEG (NEG); RBC,URINE 0 /HPF (0-2); UROBILINOGEN,URINE 0.2 mg/dL (0.2 mg/dL); WBC,URINE 0 /HPF (0-4)
--- NOTE | 2021-02-05 19:07 | PHYS DOC ---
Past History Past Medical History: Constipation, GERD, GI Bleed, [place], Schizophrenia, Other Additional Past Medical Histor: Raynauds;Fwasu-Ohhzc-Skkox (NIRMAL BRAGA APRN) Past Surgical History: Tonsillectomy, Other Additional Past Surgical Histo: duodenal surgery; hernia repair (NIRMAL BRAGA APRN) Smoking: Non-smoker Alcohol Use: None Drug Use: None (NIRMAL BRAGA APRN) General Adult EDM: Chief Complaint: ABDOMINAL PAIN HPI: HPI: Patient is a 55-year-old male presents after 3 loose stools that started 1 hour ago. Patient states "pain was 1/10 cytocide to call an ambulance to come get me". Denies taking anything for pain. Patient states he only has pain when he is going to have diarrhea. History of schizophrenia. Denies nausea/vomiting, fever. (NIRMAL BRAGA APRN) Review of Systems: Review of Systems: Constitutional: Denies fever or chills Eyes: Denies change in visual acuity HENT: Denies nasal congestion or sore throat Respiratory: Denies cough or shortness of breath Cardiovascular: Denies chest pain or edema GI: Reports 3 loose stools, reports cramping with diarrhea : Denies dysuria Musculoskeletal: Denies back pain or joint pain Integument: Denies rash Neurologic: Denies headache, focal weakness or sensory changes Endocrine: Denies polyuria or polydipsia Lymphatic: Denies swollen glands Psychiatric: Denies depression or anxiety (NIRMAL BRAGA APRN) Current Medications: Current Meds: Current Medications Medications (Trade) Dose Ordered Sig/[facility] Start Time Stop Time Status Last Admin Dose Admin Acetaminophen (Tylenol) 500 mg 1X ONCE 02/05/21 18:30 02/05/21 18:31 DC 02/05/21 18:42 500 MG (NIRMAL BRAGA APRN) Allergies: Allergies: Allergies Coded Allergies Type Severity Reaction Last Updated Verified aspirin Adverse Reaction Intermediate bleeding 02/05/21 Yes (NIRMAL BRAGA APRN) Physical Exam: PE: Constitutional: Well developed, well nourished, no acute distress, non-toxic appearance. [] HENT: Normocephalic, atraumatic, bilateral external ears normal, oropharynx moist, no oral exudates, nose normal. [] Eyes: PERRLA, EOMI, conjunctiva normal, no discharge. [] Neck: Normal range of motion, no tenderness, supple, no stridor. [] Cardiovascular:Heart rate regular rhythm, no murmur [] Lungs & Thorax: Bilateral breath sounds clear to auscultation [] Abdomen: Bowel sounds normal, soft, no tenderness, no masses, no pulsatile masses. [] Skin: Warm, dry, no erythema, no rash. [] Back: No tenderness, no CVA tenderness. [] Extremities: No tenderness, no cyanosis, no clubbing, ROM intact, no edema. [] Neurologic: Alert and oriented X 3, normal motor function, normal sensory function, no focal deficits noted. [] Psychologic: Affect normal, judgement normal, mood normal. [] (NIRMAL BRAGA APRN) Current Patient Data: Labs: Laboratory Tests Test 02/05/21 18:10 Urine Collection Type Void Urine Color Yellow Urine Clarity Clear Urine pH 5.0 Urine Specific Center <=1.005 Urine Protein Neg (NEG-TRACE) Urine Glucose (UA) 100 mg/dL (NEG) Urine Ketones (Stick) Neg mg/dL (NEG) Urine Blood Trace (NEG) Urine Nitrite Neg (NEG) Urine Bilirubin Neg (NEG) Urine Urobilinogen Dipstick 0.2 mg/dL (0.2 mg/dL) Urine Leukocyte Esterase Neg (NEG) Urine RBC 0 /HPF (0-2) Urine WBC 0 /HPF (0-4) Urine Bacteria 0 /HPF (0-FEW) Vital Signs: Vital Signs Date Time Temp Pulse Resp B/P (MAP) Pulse Ox O2 Delivery O2 Flow Rate FiO2 02/05/21 17:02 97.6 68 18 117/68 98 (NIRMAL BRAGA APRN) EKG: EKG: [] (NIRMAL BRAGA APRN) Radiology/Procedures: Radiology/Procedures: [] (NIRMAL BRAGA APRN) Heart Score: C/O Chest Pain: No Risk Factors: Risk Factors: DM, Current or recent (<one month) smoker, HTN, HLP, family history of CAD, obesity. Risk Scores: Score 0 - 3: 2.5% MACE over next 6 weeks - Discharge Home Score 4 - 6: 20.3% MACE over next 6 weeks - Admit for Clinical Observation Score 7 - 10: 72.7% MACE over next 6 weeks - Early Invasive Strategies (NIRMAL BRAGA APRN) Course & Med Decision Making: Course & Med Decision Making Pertinent Labs and Imaging studies reviewed. (See chart for details) [] 55-year-old male presents after 3 loose stools that started about 1 hour ago. Patient is rating pain at 1 out of 10. Patient only reports pain when he is about to have a bowel movement and reports it to be crampy. Patient given Tylenol. UA obtained, negative for infection. Patient's denying any pain at this time. Explained to patient that he most likely has GI issue should resolve in 24 hours. Patient instructed to return to the emergency room if he has an increase in abdominal pain, uncontrolled vomiting or fever. (NIRMAL BRAGA APRN) Course & Med Decision Making Do not see or evaluate patient. Agree with HIGHWAY MAINTENANCE SUPERVISOR's work-up and disposition per note (BENJIE MAN MD) Dragon Disclaimer: Dragon Disclaimer: This electronic medical record was generated, in whole or in part, using a voice recognition dictation system. (NIRMAL BRAGA APRN) Departure Departure: Impression: Primary Impression: Diarrhea Qualified Codes: R19.7 - Diarrhea, unspecified Disposition: HOME / SELF CARE / HOMELESS Condition: STABLE Referrals: CRISS POWER MD (PCP) Patient Instructions: Diarrhea, Lrvn-mx-Bnex, Diet for Diarrhea, Adult Additional Instructions: You are seen in the emergency room for diarrhea and mild cramping in your abdomen. You were given Tylenol which helped with your pain. Your urine was negative for infection. Symptoms should subside within 24 hours. Please return emergency room for worsening symptoms or concerns EMERGENCY DEPARTMENT GENERAL DISCHARGE INSTRUCTIONS Thank you for coming to [facility] (ED) today and trusting us with you care. We trust that you had a positivie experience in our Emergency Department. If you wish to speak to the department management, you may call the director at [phone]. YOUR FOLLOW UP INSTRUCTIONS ARE FOLLOWS: 1. Do you have a private Doctor? If you do not have a private doctor, please ask for a resource list of physicians or clinics that may be able to assist you with follow up care. 2. The Emergency Physician has interpreted your x-rays. The X-Ray specialist will also review them. If there is a change in the findings, you will be notified in 48 hours when at all possible. 3. A lab test or culture has been done, your results will be reviewed and you will be notified if you need a change in treatment. ADDITIONAL INSTRUCTIONS AND INFORMATION: 1. Your care today has been supervised by a physician who is specially trained in emergency care. Many problems require more than one evaluation for a complete diagnosis and treatment. We recommend that you schedule your follow up appointment as recommended to ensure complete treatment of you illness or injury. If you are unable to obtain follow up care and continue to have a problem, or if your condition worsens, we recommend that you return to the ED. 2. We are not able to safely determine your condition over the phone nor are we able to give sound medical advice over the phone. For these safety reasons, if you call for medical advice we will ask you to come to the ED for further evaluation. 3. If you have any questions regarding these discharge instructions please call the ED at [phone]. SAFETY INFORMATION: In the interest of safety, wellness, and injury prevention; we encourage you to wear your sealbelt, if you smoke; quite smoking, and we encourage family to use a protective helmet for bicycling and other sporting events that present an increased risk for head injury. IF YOUR SYMPTOMS WORSEN OR NEW SYMPTOMS DEVELOP, OR YOU HAVE CONCERNS ABOUT YOUR CONDITION; OR IF YOUR CONDITION WORSENS WHILE YOU ARE WAITING FOR YOUR FOLLOW UP APPOINTMENT; EITHER CONTACT YOUR PRIMARY CARE DOCTOR, THE PHYSICIAN WHOSE NAME AND NUMBER YOU WERE GIVEN, OR RETURN TO THE ED IMMEDIATELY. NIRMAL BRAGA APRN Feb 05, 2021 19:07 BENJIE MAN MD Feb 06, 2021 01:14
== END 2021-02-05 19:24 | disposition home or self-care (01) ==
LOC: ER 16:55
DX: R19.7 Diarrhea, unspecified (principal); R10.9 Unspecified abdominal pain; K21.9 Gastro-esophageal reflux disease without esophagitis; I25.2 Old myocardial infarction; F20.9 Schizophrenia, unspecified; Z88.6 Allergy status to analgesic agent
CPT/HCPCS: 81001; 99283

== ENCOUNTER 2021-02-15 15:58 | Emergency (ER) | payer OTHER ==
[~2021-02-15] VITALS: Ht 180.3 cm; Wt 66.0 kg
[2021-02-15 16:06] VITALS: BP 116/69
[2021-02-15] MEDS ORDERED: CEPH500T PO (16:46)
--- NOTE | 2021-02-15 16:47 | PHYS DOC ---
Past History Past Medical History: Constipation, GERD, GI Bleed, [place], Schizophrenia, Other Additional Past Medical Histor: Raynauds;Qntir-Ctobk-Lrhul Past Surgical History: Tonsillectomy, Other Additional Past Surgical Histo: duodenal surgery; hernia repair Smoking: Non-smoker Alcohol Use: None Drug Use: None General Adult EDM: Chief Complaint: LOWEREXTREMITY INJURY HPI: HPI: Patient is a 55-year-old male who presents with wound to the top of his left foot. Patient states about a week ago symptoms started. Patient denies fever. Denies drainage from wound. Multiple reddened areas. Pedal pulses intact. Patient has full range of motion and still able to ambulate on his own. Review of Systems: Review of Systems: Constitutional: Denies fever or chills Eyes: Denies change in visual acuity HENT: Denies nasal congestion or sore throat Respiratory: Denies cough or shortness of breath Cardiovascular: Denies chest pain or edema GI: Denies abdominal pain, nausea, vomiting, bloody stools or diarrhea : Denies dysuria Musculoskeletal: Denies back pain or joint pain Integument: Multiple wounds to the top of left foot, tenderness, red, no drainage Neurologic: Denies headache, focal weakness or sensory changes Endocrine: Denies polyuria or polydipsia Lymphatic: Denies swollen glands Psychiatric: Denies depression or anxiety Allergies: Allergies: Allergies Coded Allergies Type Severity Reaction Last Updated Verified aspirin Adverse Reaction Intermediate bleeding 02/05/21 Yes Physical Exam: PE: Constitutional: Well developed, well nourished, no acute distress, non-toxic appearance. [] HENT: Normocephalic, atraumatic, bilateral external ears normal, oropharynx moist, no oral exudates, nose normal. [] Eyes: PERRLA, EOMI, conjunctiva normal, no discharge. [] Neck: Normal range of motion, no tenderness, supple, no stridor. [] Cardiovascular:Heart rate regular rhythm, no murmur [] Lungs & Thorax: Bilateral breath sounds clear to auscultation [] Abdomen: Bowel sounds normal, soft, no tenderness, no masses, no pulsatile masses. [] Skin: Multiple red, wound to top of left foot. No drainage noted. Back: No tenderness, no CVA tenderness. [] Extremities: Tenderness to top of left foot, no cyanosis, no clubbing, ROM intact, no edema. [] Neurologic: Alert and oriented X 3, normal motor function, normal sensory function, no focal deficits noted. [] Psychologic: Affect normal, judgement normal, mood normal. [] Current Patient Data: Vital Signs: Vital Signs Date Time Temp Pulse Resp B/P (MAP) Pulse Ox O2 Delivery O2 Flow Rate FiO2 02/15/21 16:06 97.9 69 17 116/69 69 Room Air EKG: EKG: [] Radiology/Procedures: Radiology/Procedures: [] Heart Score: C/O Chest Pain: No Risk Factors: Risk Factors: DM, Current or recent (<one month) smoker, HTN, HLP, family history of CAD, obesity. Risk Scores: Score 0 - 3: 2.5% MACE over next 6 weeks - Discharge Home Score 4 - 6: 20.3% MACE over next 6 weeks - Admit for Clinical Observation Score 7 - 10: 72.7% MACE over next 6 weeks - Early Invasive Strategies Course & Med Decision Making: Course & Med Decision Making Pertinent Labs and Imaging studies reviewed. (See chart for details) [] 55-year-old male presents with red, multiple wounds to the top of his left foot. Patient reports he noticed symptoms about a week ago. Afebrile. No drainage. Pedal pulses intact. Patient has full range of motion. Patient able to ambulate on his own. Patient is going to be started on Keflex for cellulitis. Explained to patient to take antibiotic in full and as directed. Patient states that he understands. Patient is hemodynamically stable. Eliazar Disclaimer: Eliazar Disclaimer: This electronic medical record was generated, in whole or in part, using a voice recognition dictation system. Departure Departure: Impression: Primary Impression: Lower extremity cellulitis Qualified Codes: L03.116 - Cellulitis of left lower limb Disposition: HOME / SELF CARE / HOMELESS Condition: STABLE Referrals: CRISS POWER MD (PCP) Patient Instructions: Cellulitis, [id number] Additional Instructions: You were seen in the emergency room for wound to the left, foot. I am starting you on Keflex to treat cellulitis. Make sure that you take the antibiotic as prescribed and in full. If your symptoms worsen such as fever, drainage, increase in pain please follow-up with your PCP or return to the ER. EMERGENCY DEPARTMENT GENERAL DISCHARGE INSTRUCTIONS Thank you for coming to [facility] (ED) today and trusting us with you care. We trust that you had a positivie experience in our Emergency Department. If you wish to speak to the department management, you may call the director at [phone]. YOUR FOLLOW UP INSTRUCTIONS ARE FOLLOWS: 1. Do you have a private Doctor? If you do not have a private doctor, please ask for a resource list of physicians or clinics that may be able to assist you with follow up care. 2. The Emergency Physician has interpreted your x-rays. The X-Ray specialist will also review them. If there is a change in the findings, you will be notified in 48 hours when at all possible. 3. A lab test or culture has been done, your results will be reviewed and you will be notified if you need a change in treatment. ADDITIONAL INSTRUCTIONS AND INFORMATION: 1. Your care today has been supervised by a physician who is specially trained in emergency care. Many problems require more than one evaluation for a complete diagnosis and treatment. We recommend that you schedule your follow up appointment as recommended to ensure complete treatment of you illness or injury. If you are unable to obtain follow up care and continue to have a problem, or if your condition worsens, we recommend that you return to the ED. 2. We are not able to safely determine your condition over the phone nor are we able to give sound medical advice over the phone. For these safety reasons, if you call for medical advice we will ask you to come to the ED for further evaluation. 3. If you have any questions regarding these discharge instructions please call the ED at [phone]. SAFETY INFORMATION: In the interest of safety, wellness, and injury prevention; we encourage you to wear your sealbelt, if you smoke; quite smoking, and we encourage family to use a protective helmet for bicycling and other sporting events that present an increased risk for head injury. IF YOUR SYMPTOMS WORSEN OR NEW SYMPTOMS DEVELOP, OR YOU HAVE CONCERNS ABOUT YOUR CONDITION; OR IF YOUR CONDITION WORSENS WHILE YOU ARE WAITING FOR YOUR FOLLOW UP APPOINTME NT; EITHER CONTACT YOUR PRIMARY CARE DOCTOR, THE PHYSICIAN WHOSE NAME AND NUMBER YOU WERE GIVEN, OR RETURN TO THE ED IMMEDIATELY. Scripts Cephalexin (CEPHALEXIN) 500 Mg Tablet 1 TAB PO BID for INFECTION for 5 Days, #10 TAB Prov: NIRMAL BRAGA APRN 02/15/21 NIRMAL BRAGA APRN Feb 15, 2021 16:47
== END 2021-02-15 16:53 | disposition home or self-care (01) ==
LOC: ER 15:58
DX: L03.116 Cellulitis of left lower limb (principal); K21.9 Gastro-esophageal reflux disease without esophagitis; I25.2 Old myocardial infarction; F20.9 Schizophrenia, unspecified; Z88.6 Allergy status to analgesic agent
CPT/HCPCS: 99283

== ENCOUNTER 2021-02-24 10:42 | Emergency (ER) | payer OTHER ==
[~2021-02-24] VITALS: Ht 180.3 cm; Wt 66.0 kg
[~2021-02-24 10:42] MED LIST changes: +CEPH500T PO
[2021-02-24 10:51] VITALS: BP 141/67
--- NOTE | 2021-02-24 11:09 | PHYS DOC ---
Past History Past Medical History: Constipation, GERD, GI Bleed, [place], Schizophrenia, Other Additional Past Medical Histor: Raynauds;Ypafy-Zsacl-Vvjkg (OLIVIA PAYNE APRN) Past Surgical History: Tonsillectomy, Other Additional Past Surgical Histo: duodenal surgery; hernia repair (OLIVIA PAYNE APRN) Smoking: Non-smoker Alcohol Use: None Drug Use: None (OLIVIA PAYNE APRN) General Adult EDM: Chief Complaint: NOSEBLEED HPI: HPI: Patient is a 55-year-old male being seen in the ER for nosebleed. Patient reports that his nose bled for 10 minutes last night and stopped. Patient's nose is not currently bleeding. Patient denies any injury or blood thinners. 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 (OLIVIA PAYNE APRN) Review of Systems: Review of Systems: 14 body systems of the review of systems have been reviewed. See HPI for pertinent positive and negative responses, otherwise all other systems are negative, nonpertinent or noncontributory (OLIVIA PAYNE APRN) Allergies: Allergies: Allergies Coded Allergies Type Severity Reaction Last Updated Verified aspirin Adverse Reaction Intermediate bleeding 02/05/21 Yes (OLIVIA PAYNE APRN) Physical Exam: PE: Constitutional: Well developed, well nourished, no acute distress, non-toxic appearance. [] HENT: Normocephalic, atraumatic, bilateral external ears normal, oropharynx m oist, no oral exudates, no active nose bleeding, dried blood noted in the right nare Eyes: PERRL, EOMI, conjunctiva normal, no discharge. [] Neck: Normal range of motion, no stridor Cardiovascular: Normal peripheral perfusion Lungs & Thorax: Normal work of breathing, no tachypnea Abdomen: Bowel sounds normal, soft, no tenderness, no masses, no pulsatile masses. [] Skin: Warm, dry, no erythema, no rash. [] Back: Normal range of motion Extremities: No tenderness, no cyanosis, no clubbing, ROM intact, no edema. [] Neurologic: Alert and oriented X 3, normal motor function, normal sensory function, no focal deficits noted. [] Psychologic: Affect normal, judgement normal, mood normal. [] (OLIVIA PAYNE APRN) Current Patient Data: Vital Signs: Vital Signs Date Time Temp Pulse Resp B/P (MAP) Pulse Ox O2 Delivery O2 Flow Rate FiO2 02/24/21 10:51 97.5 74 16 141/67 98 Room Air (OLIVIA PAYNE APRN) EKG: EKG: [] (OLIVIA PAYNE APRN) Radiology/Procedures: Radiology/Procedures: [] (OLIVIA PAYNE APRN) Heart Score: C/O Chest Pain: No Risk Factors: Risk Factors: DM, Current or recent (<one month) smoker, HTN, HLP, family history of CAD, obesity. Risk Scores: Score 0 - 3: 2.5% MACE over next 6 weeks - Discharge Home Score 4 - 6: 20.3% MACE over next 6 weeks - Admit for Clinical Observation Score 7 - 10: 72.7% MACE over next 6 weeks - Early Invasive Strategies (OLIVIA PAYNE APRN) Course & Med Decision Making: Course & Med Decision Making Pertinent Labs and Imaging studies reviewed. (See chart for details) Patient is a 55-year-old male being seen in the ER for a nosebleed. Patient reports that his nosebleed only lasted 10 minutes last night and has not restarted. Patient's nose is not currently bleeding in the ER. 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 His vital signs are stable and his physical exam is reassuring. Patient discharged home with education regarding management of nosebleeds. I discussed with patient all findings as well as the need to follow-up with PCP for further evaluation and treatment or return to the ER if any new or worsening symptoms. Strict return precautions were also discussed at length. Patient voiced understanding and agreement with the plan. Patient is hemodynamically stable at the time of disposition. (OLIVIA PAYNE APRN) Dragon Disclaimer: Dragon Disclaimer: This electronic medical record was generated, in whole or in part, using a voice recognition dictation system. (OLIVIA PAYNE APRN) Attending Co-Sign The patient was seen and interviewed as well as examined at the bedside. The chart was reviewed. The case was discussed. Agree with the plan of care. (DONTAE MCLEAN DO) Departure Departure: Impression: Primary Impression: Acute anterior epistaxis Disposition: HOME / SELF CARE / HOMELESS Condition: GOOD Referrals: CRISS POWER MD (PCP) Patient Instructions: Nosebleed Additional Instructions: You were seen in the ER following a nosebleed that occurred last night. Your physical exam was reassuring and your vital signs were stable. Your nose is not currently bleeding. Please do not blow your nose or insert anything into your nose. If you develop another nosebleed you should blow your nose, sit forward, and pinch the soft area towards the bottom of your nose below the bone for at least 15 minutes. If your bleeding continues repeat the steps once more and hold pressure for 30 minutes. If this does not stop the nosebleed, please return to the ER. If you develop lightheadedness, nosebleed that will not stop after treatment please return to the ER immediately. Follow-up with your primary care provider tomorrow regarding your ER visit. EMERGENCY DEPARTMENT GENERAL DISCHARGE INSTRUCTIONS Thank you for coming to [facility] (ED) today and trusting us with you care. We trust that you had a positivie experience in our Emergency Department. If you wish to speak to the department management, you may call the director at [phone]. YOUR FOLLOW UP INSTRUCTIONS ARE FOLLOWS: 1. Do you have a private Doctor? If you do not have a private doctor, please ask for a resource list of physicians or clinics that may be able to assist you with follow up care. 2. The Emergency Physician has interpreted your x-rays. The X-Ray specialist will also review them. If there is a change in the findings, you will be notified in 48 hours when at all possible. 3. A lab test or culture has been done, your results will be reviewed and you will be notified if you need a change in treatment. ADDITIONAL INSTRUCTIONS AND INFORMATION: 1. Your care today has been supervised by a physician who is specially trained in emergency care. Many problems require more than one evaluation for a complete diagnosis and treatment. We recommend that you schedule your follow up appointment as recomme nded to ensure complete treatment of you illness or injury. If you are unable to obtain follow up care and continue to have a problem, or if your condition worsens, we recommend that you return to the ED. 2. We are not able to safely determine your condition over the phone nor are we able to give sound medical advice over the phone. For these safety reasons, if you call for medical advice we will ask you to come to the ED for further evaluation. 3. If you have any questions regarding these discharge instructions please call the ED at [phone]. SAFETY INFORMATION: In the interest of safety, wellness, and injury prevention; we encourage you to wear your sealbelt, if you smoke; quite smoking, and we encourage family to use a protective helmet for bicycling and other sporting events that present an increased risk for head injury. IF YOUR SYMPTOMS WORSEN OR NEW SYMPTOMS DEVELOP, OR YOU HAVE CONCERNS ABOUT YOUR CONDITION; OR IF YOUR CONDITION WORSENS WHILE YOU ARE WAITING FOR YOUR FOLLOW UP APPOINTMENT; EITHER CONTACT YOUR PRIMARY CARE DOCTOR, THE PHYSICIAN WHOSE NAME AND NUMBER YOU WERE GIVEN, OR RETURN TO THE ED IMMEDIATELY. OLIVIA PAYNE APRN Feb 24, 2021 11:09 DONTAE MCLEAN DO Feb 26, 2021 09:55
== END 2021-02-24 12:14 | disposition home or self-care (01) ==
LOC: ER 10:42
DX: R04.0 Epistaxis (principal); R53.1 Weakness; I78.0 Hereditary hemorrhagic telangiectasia; K21.9 Gastro-esophageal reflux disease without esophagitis; I25.2 Old myocardial infarction; F20.9 Schizophrenia, unspecified; Z88.6 Allergy status to analgesic agent
CPT/HCPCS: 99281

== ENCOUNTER 2021-02-25 18:38 | Emergency (ER) | payer OTHER ==
[~2021-02-25] VITALS: Ht 180.3 cm; Wt 64.9 kg
[2021-02-25 18:45] VITALS: BP 116/63
[2021-02-25] MEDS ORDERED: ACETAMINOPHEN 500 MG TABLET PO ONE (19:00)
--- NOTE | 2021-02-25 19:02 | PHYS DOC ---
Past History Past Medical History: Constipation, GERD, GI Bleed, [place], Schizophrenia, Other Additional Past Medical Histor: Raynauds;Ykpco-Bvpza-Hfgiz Past Surgical History: Tonsillectomy, Other Additional Past Surgical Histo: duodenal surgery; hernia repair Smoking: Non-smoker Alcohol Use: None Drug Use: None Adult General Chief Complaint Chief Complaint: Neck Pain HPI HPI Patient is a 55-year-old homeless male who presents to the emergency department with neck pain. States he blew his nose just before coming into the emergency department and felt a twinge in the muscle of his neck. Denies any headaches, change in vision, dizziness or lightheadedness, numbness/weakness/tingling. Denies any trouble sitting, standing or walking. States the pain is 3 out of 10, dull and achy in nature. Review of Systems Review of Systems Review of systems otherwise unremarkable except noted in HPI Current Medications Current Medications Current Medications Medications (Trade) Dose Ordered Sig/Tomasz Start Time Stop Time Status Last Admin Dose Admin Acetaminophen (Tylenol) 1,000 mg 1X ONCE 02/25/21 19:00 02/25/21 19:01 UNV Ibuprofen (Motrin) 800 mg 1X ONCE 02/25/21 19:00 02/25/21 19:01 UNV Allergies Allergies Allergies Coded Allergies Type Severity Reaction Last Updated Verified aspirin Adverse Reaction Intermediate bleeding 02/05/21 Yes Physical Exam Physical Exam Constitutional: Well developed, well nourished, no acute distress, non-toxic appearance. [] HENT: Normocephalic, atraumatic, no oral exudates, nose normal. [] Eyes: conjunctiva normal, no discharge. [] Neck: Normal range of motion, no tenderness, supple, no stridor. [] Cardiovascular:Heart rate regular rhythm, no murmur [] Lungs & Thorax: Bilateral breath sounds clear to auscultation [] Back: No tenderness, Extremities: No tenderness, no cyanosis, no clubbing, ROM intact, no edema. [] Neurologic: Alert and oriented X 3, no focal deficits noted. [] Psychologic: Affect normal, judgement normal, mood normal. [] EKG EKG [] Radiology/Procedures Radiology/Procedures [] Heart Score C/O Chest Pain: No Risk Factors: Risk Factors: DM, Current or recent (<one month) smoker, HTN, HLP, family history of CAD, obesity. Risk Scores: Risk Factors: DM, Current or recent (<one month) smoker, HTN, HLP, family history of CAD, obesity. Course & Med Decision Making Course & Med Decision Making Patient is a 55-year-old male who presents with neck pain Vital signs not concerning. Physical exam noted above. Given Tylenol, ibuprofen and ice pack. Patient states that he does take Tylenol and ibuprofen occasionally. Patient ate a full meal while here. Given pain management instructions for home. Advised to follow-up with primary care physician and given resources for local free clinics. Advised to come back to the ED with new or concerning symptoms. Patient grateful, verbalized understanding and agreed with plan of discharge. [] Dragon Disclaimer Dragon Disclaimer This electronic medical record was generated, in whole or in part, using a voice recognition dictation system. Departure Departure: Impression: Primary Impression: Neck pain Disposition: HOME / SELF CARE / HOMELESS Condition: GOOD Referrals: CRISS POWER MD (PCP) Patient Instructions: RICE - Routine Care for Injuries Additional Instructions: Thank you for coming into the emergency department tonight and allowing us to take care of you. Please read the attached information carefully to go back over things we discussed. Please continue with Tylenol and ibuprofen and ice regimen as we discussed. Please follow-up with a primary care physician in the morning to set up a follow-up appointment. Please come back to the ED with new or concerning symptoms as discussed. BENJIE MAN MD Feb 25, 2021 19:02
[2021-02-25] MEDS ORDERED: IBUPROFEN 800 MG TABLET. PO ONE (19:15)
== END 2021-02-25 19:15 | disposition home or self-care (01) ==
LOC: ER 18:38
DX: M54.2 Cervicalgia (principal); K21.9 Gastro-esophageal reflux disease without esophagitis; F20.9 Schizophrenia, unspecified; I25.2 Old myocardial infarction; Z59.0 Homelessness
CPT/HCPCS: 99283

== ENCOUNTER 2021-03-30 19:38 | Emergency (ER) | payer OTHER ==
[~2021-03-30] VITALS: Ht 180.3 cm; Wt 64.9 kg
--- NOTE | 2021-03-30 19:52 | PHYS DOC ---
Past History Past Medical History: Constipation, GERD, GI Bleed, [place], Schizophrenia, Other Additional Past Medical Histor: Raynauds;Yqexl-Xpkjf-Enmtd (NIRMAL BRAGA APRN) Past Surgical History: Tonsillectomy, Other Additional Past Surgical Histo: duodenal surgery; hernia repair (NIRMAL BRAGA APRN) Smoking: Non-smoker Alcohol Use: None Drug Use: None (NIRMAL BRAGA APRN) General Adult EDM: Chief Complaint: OTHER COMPLAINTS HPI: HPI: Patient is a 56-year-old male who presents to the emergency room for food. "I feel weak because I have not eaten in 3 days". Patient denies pain or any other complaints. (NIRMAL BRAGA APRN) Review of Systems: Review of Systems: ROS At least 10 ROS systems have been reviewed and are negative except as documented in the HPI. General: Negative except as outlined in HPI above. Skin: Negative except as outlined in HPI above. HEENT: Negative except as outlined in HPI above. Neck: Negative except as outlined in HPI above. Respiratory: Negative except as outlined in HPI above.. Cardiovascular: Negative except as outlined in HPI above. Abdomen: Negative except as outlined in HPI above. : Negative except as outlined in HPI above. Back/MSK: Negative except as outlined in HPI above. Neuro: Negative except as outlined in HPI above. Psych: Negative except as outlined in HPI above. (NIRMAL BRAGA APRN) Allergies: Allergies: Allergies Coded Allergies Type Severity Reaction Last Updated Verified aspirin Adverse Reaction Intermediate bleeding 02/05/21 Yes (NIRMAL BRAGA APRN) Physical Exam: PE: Constitutional: Well developed, well nourished, no acute distress, non-toxic appearance. [] HENT: Normocephalic, atraumatic, bilateral external ears normal, oropharynx moist, no oral exudates, nose normal. [] Eyes: PERRLA, EOMI, conjunctiva normal, no discharge. [] Neck: Normal range of motion, no tenderness, supple, no stridor. [] Cardiovascular:Heart rate regular rhythm, no murmur [] Lungs & Thorax: Bilateral breath sounds clear to auscultation [] Abdomen: Bowel sounds normal, soft, no tenderness, no masses, no pulsatile masses. [] Skin: Warm, dry, no erythema, no rash. [] Back: No tenderness, no CVA tenderness. [] Extremities: No tenderness, no cyanosis, no clubbing, ROM intact, no edema. [] Neurologic: Alert and oriented X 3, normal motor function, normal sensory function, no focal deficits noted. [] Psychologic: Affect normal, judgement normal, mood normal. [] (NIRMAL BRAGA APRN) Current Patient Data: Vital Signs: Vital Signs Date Time Temp Pulse Resp B/P (MAP) Pulse Ox O2 Delivery O2 Flow Rate FiO2 03/30/21 19:44 97.6 78 16 116/63 (80) 97 Room Air (NIRMAL BRAGA APRN) EKG: EKG: [] (NIRMAL BRAGA APRN) Radiology/Procedures: Radiology/Procedures: [] (NIRMAL BRAGA APRN) Heart Score: C/O Chest Pain: No Risk Factors: Risk Factors: DM, Current or recent (<one month) smoker, HTN, HLP, family history of CAD, obesity. Risk Scores: Score 0 - 3: 2.5% MACE over next 6 weeks - Discharge Home Score 4 - 6: 20.3% MACE over next 6 weeks - Admit for Clinical Observation Score 7 - 10: 72.7% MACE over next 6 weeks - Early Invasive Strategies (NIRMAL BRAGA APRN) Course & Med Decision Making: Course & Med Decision Making Pertinent Labs and Imaging studies reviewed. (See chart for details) [] 56-year-old male presents emergency room because he feels weak and has not eaten in 3 days. Patient denies dizziness, chest pain, shortness of breath, fevers or any other illness. Patient was given a meal tray and discharged. Patient is hemodynamically stable, alert and oriented, able to ambulate on his own. (NIRMAL BRAGA APRN) Dragon Disclaimer: Dragon Disclaimer: This electronic medical record was generated, in whole or in part, using a voice recognition dictation system. (NIRMAL BRAGA APRN) Departure Departure: Impression: Primary Impression: Encounter for medical screening examination Disposition: HOME / SELF CARE / HOMELESS Condition: STABLE Referrals: CRISS POWER MD (PCP) Patient Instructions: Medical Screening Exam Additional Instructions: EMERGENCY DEPARTMENT GENERAL DISCHARGE INSTRUCTIONS Thank you for coming to [facility] (ED) today and trusting us with you care. We trust that you had a positivie experience in our Emergency Department. If you wish to speak to the department management, you may call the director at [phone]. YOUR FOLLOW UP INSTRUCTIONS ARE FOLLOWS: 1. Do you have a private Doctor? If you do not have a private doctor, please ask for a resource list of physicians or clinics that may be able to assist you with fo llow up care. 2. The Emergency Physician has interpreted your x-rays. The X-Ray specialist will also review them. If there is a change in the findings, you will be notified in 48 hours when at all possible. 3. A lab test or culture has been done, your results will be reviewed and you will be notified if you need a change in treatment. ADDITIONAL INSTRUCTIONS AND INFORMATION: 1. Your care today has been supervised by a physician who is specially trained in emergency care. Many problems require more than one evaluation for a complete diagnosis and treatment. We recommend that you schedule your follow up appointment as recommended to ensure complete treatment of you illness or injury. If you are unable to obtain follow up care and continue to have a problem, or if your condition worsens, we recommend that you return to the ED. 2. We are not able to safely determine your condition over the phone nor are we able to give sound medical advice over the phone. For these safety reasons, if you call for medical advice we will ask you to come to the ED for further evaluation. 3. If you have any questions regarding these discharge instructions please call the ED at [phone]. SAFETY INFORMATION: In the interest of safety, wellness, and injury prevention; we encourage you to wear your sealbelt, if you smoke; quite smoking, and we encourage family to use a protecti ve helmet for bicycling and other sporting events that present an increased risk for head injury. IF YOUR SYMPTOMS WORSEN OR NEW SYMPTOMS DEVELOP, OR YOU HAVE CONCERNS ABOUT YOUR CONDITION; OR IF YOUR CONDITION WORSENS WHILE YOU ARE WAITING FOR YOUR FOLLOW UP APPOINTMENT; EITHER CONTACT YOUR PRIMARY CARE DOCTOR, THE PHYSICIAN WHOSE NAME AND NUMBER YOU WERE GIVEN, OR RETURN TO THE ED IMMEDIATELY. Attending Signature Attending Signature I have reviewed the PA/DIRECTOR MARKET RESEARCH's note and plan of care. I was available for consultation as needed during the patient's visit in the emergency department. I agree with the clinical impression, plan, and disposition. (NAZARIO SEO DO) NIRMAL BRAGA APRN Mar 30, 2021 19:52 NAZARIO SEO DO Mar 30, 2021 21:33
== END 2021-03-30 20:47 | disposition home or self-care (01) ==
LOC: ER 19:38
DX: Z13.9 Encounter for screening, unspecified (principal)
CPT/HCPCS: 99281

== ENCOUNTER 2021-04-27 23:45 | Emergency (ER) | payer OTHER ==
[~2021-04-27] VITALS: Ht 180.3 cm; Wt 67.1 kg
--- NOTE | 2021-04-27 23:52 | PHYS DOC ---
Past History Past Medical History: Constipation, GERD, GI Bleed, [place], Schizophrenia, Other Additional Past Medical Histor: Raynauds;Tkeoa-Mjyko-Elkiu Past Surgical History: Tonsillectomy, Other Additional Past Surgical Histo: duodenal surgery; hernia repair Smoking: Non-smoker Alcohol Use: None Drug Use: None General Adult HPI: HPI: ".. The voices told me to come in.. I ve been tasting blood.. and I am feeling weak.. " Patient is a 56 year old male who presents with above hx and complaints of nose bleeding and weakness. Pt. well know to ED staff for and times frequent ED evaluations. Patient has history of chronic schizophrenia, Lavelle Kern Rendu disease, recurrent GI bleeds, epistaxis, microcytic hypochromic anemia, thrombocytosis, ovalcytosis, hypothyroidism, Raynaud's phenomena, constipation, GI bleeds, and frequent nose bleeds. Patient denies any recent travel. Patient denies any specific ill contacts. Patient reportedly has a follow-up with Dr. Walls but he has never kept appointment. Patient is to follow at the counseling center however has not kept follow-up appointments for his Depo of anti-psychotics. Meds Review of Systems: Review of Systems: Constitutional: Denies fever or chills Eyes: Denies change in visual acuity HENT: Denies nasal congestion or sore throat. Patient complains of bleeding right nares Respiratory: Denies cough or shortness of breath Cardiovascular: Denies chest pain or edema GI: Denies abdominal pain, nausea, vomiting, bloody stools or diarrhea : Denies dysuria Musculoskeletal: Denies back pain or joint pain patient complains of weakness Integument: Denies rash Neurologic: Denies headache, focal weakness or sensory changes Endocrine: Denies polyuria or polydipsia Lymphatic: Denies swollen glands Psychiatric: Denies depression or anxiety. Complains hallucination-voices auditory, Family History: Family History: Noncontributory to presentation Current Medications: Current Meds: See nursing for home meds Allergies: Allergies: Allergies Coded Allergies Type Severity Reaction Last Updated Verified aspirin Adverse Reaction Intermediate bleeding 02/05/21 Yes Physical Exam: PE: Constitutional: , no acute distress, non-toxic appearance. [] HENT: Normocephalic, atraumatic, bilateral external ears normal, oropharynx moist, no oral exudates, nose normal. Right naris has a small amount of bleeding in [place] area. With lesions. Eyes: PERRLA, EOMI, conjunctiva normal, no discharge. [] Neck: Normal range of motion, no tenderness, supple, no stridor. [] Cardiovascular: Bradycardia heart rate regular rhythm, no murmur []. Bedside monitor shows a sinus bradycardia with no acute morphology. Lungs & Thorax: Bilateral breath sounds equal apex on auscultation. Some basilar crackles on right. Clear with cough Abdomen: Bowel sounds normal, soft, no tenderness, no masses, no pulsatile masses. Old surgery scars. Distended. Skin: Warm, dry, no erythema, no rash. [] Back: No tenderness, no CVA tenderness. [] Extremities: No tenderness, no cyanosis, no clubbing, ROM intact, no edema. [] Neurologic: Alert and oriented X 3, normal motor function, normal sensory fu nction, no focal deficits noted. [] Psychologic: Affect anxious, judgement normal, mood normal. Active auditory hallucinations-denies suicidal ideation. Denies homicidal ideation. Patient states the same 3 voices he always hears. Patient states the voices told him to come to the ED to be checked out. EKG: EKG: My interpretation of EKG shows a sinus rhythm at 60 bpm. Partial right bundle branch block. No acute morphology. Similar to prior EKGs on file. Time EKG for 46 hours. Radiology/Procedures: Radiology/Procedures: [][address] [address] IMAGING REPORT Signed PATIENT: BOLIVAR JEFF ACCOUNT: [id number] : 1965 LOCATION: ER AGE: 56 SEX: M EXAM STATUS: REG ER ORD. PHYSICIAN: KENDELL STEWART MD REASON: weak PROCEDURE: PORTABLE CHEST 1V EXAMINATION: XR CHEST 1V CLINICAL HISTORY: Weakness EXAM DATE/TIME: 04/28/2021 12:05 AM COMPARISON: 02/03/2021 FINDINGS: Lines, Tubes, and Devices: None. Cardiomediastinal Silhouette: Within normal limits. Lungs and Pleura: Mild patchy opacities in the right lower lung zone. No evidence of pleural effusion or pneumothorax. Bones and Soft Tissues: Degenerative changes in the thoracic spine. IMPRESSION: Mild patchy airspace disease in the right lower lung zone. Electronically signed by: Brando Gabriel DO (04/28/2021 12:50 AM) [facility] DICTATED AND SIGNED BY: BRANDO GABRIEL DO DATE: 04/28/21 0049 CC: KENDELL STEWART MD; CRISS WALLS MD ~MTH0 0 Heart Score: C/O Chest Pain: N/A HEART Score for Chest Pain: HEART Score for Chest Pain Response (Comments) Value History Slighlty/Non-Suspicious 0 ECG Nonspecific Repolarizatio 1 Age >45 - < 65 1 Risk Factors 1 or 2 Risk Factors 1 Troponin < Normal Limit 0 Total 3 Risk Factors: Risk Factors: DM, Current or recent (<one month) smoker, HTN, HLP, family history of CAD, obesity. Risk Scores: Score 0 - 3: 2.5% MACE over next 6 weeks - Discharge Home Score 4 - 6: 20.3% MACE over next 6 weeks - Admit for Clinical Observation Score 7 - 10: 72.7% MACE over next 6 weeks - Early Invasive Strategies Course & Med Decision Making: Course & Med Decision Making Pertinent Labs and Imaging studies reviewed. (See chart for details) Patient keep follow-up with Dr. Walls. Patient keep follow-up with counseling center. Patient review labs done in the emergency department. Patient return if any concerns. Reviewed patient's labs these are somewhat near his baseline. Impression: 1. Schizophrenia 2. Anemia hemoglobin 9.2 with microcytic and hypochromic indices 6 08/24 3. Thrombocytosis 579 4. Elevated TSH 8.10 5. Epistaxis right naris stable no active bleeding 6. History of GERD 7. Constipation 8. Faznq-Cgqka-Gfsyd [] Dragon Disclaimer: Dragon Disclaimer: This electronic medical record was generated, in whole or in part, using a voice recognition dictation system. Departure Departure: Referrals: CRISS WALLS MD (PCP) Eliazar Disclaimer This chart was dictated in whole or in part using Voice Recognition software in a busy, high-work load, and often noisy Emergency Department environment. It may contain unintended and wholly unrecognized errors or omissions. KENDELL STEWART MD Apr 27, 2021 23:52
--- NOTE | 2021-04-28 00:16 | EKG ---
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
[2021-04-28] MEDS ORDERED: IV RINGERS SOLUTION,LACTATED 1,000 ML IV SCH (00:30)
[2021-04-28 00:42] LABS: CALCIUM 8.6 mg/dL (8.5-10.1); CREATININE 0.8 mg/dL (0.7-1.3); GFR 100.7; POTASSIUM 3.8 mmol/L (3.5-5.1)
--- NOTE | 2021-04-28 00:52 | RAD ---
EXAMINATION: XR CHEST 1V CLINICAL HISTORY: Weakness EXAM DATE/TIME: 04/28/2021 12:05 AM COMPARISON: 02/03/2021 FINDINGS: Lines, Tubes, and Devices: None. Cardiomediastinal Silhouette: Within normal limits. Lungs and Pleura: Mild patchy opacities in the right lower lung zone. No evidence of pleural effusion or pneumothorax. Bones and Soft Tissues: Degenerative changes in the thoracic spine. IMPRESSION: Mild patchy airspace disease in the right lower lung zone. Electronically signed by: Brando Alonzo DO (04/28/2021 12:50 AM) [facility]
[2021-04-28 00:54] LABS: BASO # 0.1 x10^3/uL (0.0-0.2); BASO % 1 % (0-3); EOS # 0.2 x10^3/uL (0.0-0.7); EOS % 4 % (0-3); HEMATOCRIT 32.2 % (39.0-53.0); HEMOGLOBIN 9.2 g/dL (13.0-17.5); LYMPH # 1.1 x10^3/uL (1.0-4.8); LYMPH % 21 % (24-48); MEAN CORPUSCULAR HEMOGLOBIN 18 pg (25-35); MEAN CORPUSCULAR HGB CONC 28 g/dL (31-37); MEAN CORPUSCULAR VOLUME 62 fL (79-100); MONO # 0.4 x10^3/uL (0.0-1.1); MONO % 8 % (0-9); NEUT # 3.5 x10^3uL (1.8-7.7); NEUT % 66 % (31-73); PLATELET COUNT 579 x10^3/uL (140-400); RED BLOOD COUNT 5.19 x10^6/uL (4.30-5.70); RED CELL DISTRIBUTION WIDTH 20.3 % (11.5-14.5); WHITE BLOOD COUNT 5.3 x10^3/uL (4.0-11.0)
[2021-04-28 00:55] LABS: ALBUMIN 3.9 g/dL (3.4-5.0); DIRECT BILIRUBIN 0.2 mg/dL (0.0-0.2); MAGNESIUM 2.4 mg/dL (1.8-2.4); TOTAL BILIRUBIN 0.4 mg/dL (0.2-1.0); TOTAL PROTEIN 7.3 g/dL (6.4-8.2)
[2021-04-28 00:55] LABS: BARBITURATES NEG (NEG); BENZODIAZEPINES NEG (NEG); CANNABINOIDS NEG (NEG); COCAINE NEG (NEG); METHADONE NEG (NEG); OPIATES NEG (NEG); PHENCYCLIDINE NEG (NEG)
[2021-04-28 01:06] LABS: BACTERIA,URINE 0 /HPF (0-FEW); BILIRUBIN,URINE NEG (NEG); CLARITY,URINE CLEAR; COLOR,URINE YELLOW; GLUCOSE,URINE 500 mg/dL (NEG); NITRITE,URINE NEG (NEG); RBC,URINE 0 /HPF (0-2); SQUAMOUS EPITHELIAL CELL,UR OCC /LPF; WBC,URINE RARE /HPF (0-4)
[2021-04-28 01:08] LABS: ANISOCYTOSIS MOD; HYPOCHROMIA MOD; MICROCYTOSIS MOD; PLT ESTIMATE INCREASED (ADEQUATE)
[2021-04-28 01:13] LABS: AMPHETAMINE/METHAMPHETAMINE NEG (NEG)
[2021-04-28 01:40] VITALS: BP 117/70
== END 2021-04-28 01:44 | disposition home or self-care (01) ==
LOC: ER 23:45
DX: D64.9 Anemia, unspecified (principal); F20.9 Schizophrenia, unspecified; D75.839 Thrombocytosis, unspecified; R04.0 Epistaxis; K21.9 Gastro-esophageal reflux disease without esophagitis; K59.00 Constipation, unspecified; R94.6 Abnormal results of thyroid function studies; Z20.822 Contact with and (suspected) exposure to COVID-19
CPT/HCPCS: 71045; 80048; 80076; 80307; 81001; 82550; 83690; 83735; 83880; 84443; 84484; 85025; 85610; 85730; 93005; 96360; 99285; C9803; J7120; U0003

== ENCOUNTER 2021-05-06 14:17 | Emergency (ER) | payer OTHER ==
[~2021-05-06] VITALS: Ht 180.3 cm; Wt 67.1 kg
[2021-05-06] MEDS ORDERED: IV NORMAL SALINE 1,000ML 1,000 ML IV ONE (14:45)
--- NOTE | 2021-05-06 14:51 | EKG ---
[address] [address] Test Date: 2021-05-06 Test Time: 14:26:27 Pat Name: BOLIVAR JEFF Department: Room: Gender: M Program Writer: POORNIMA : 1965 Requested By: GEETHA REYES Order Number: [id number] Reading MD: Pito Dowell Measurements Intervals [place] Rate: 63 P: 54 VA: 138 QRS: 59 QRSD: 80 T: 63 QT: 354 QTc: 365 Interpretive Statements SINUS RHYTHM NORMAL ECG Electronically Signed On 05-06-2021 20:53:17 CDT by Pito Dowell
--- NOTE | 2021-05-06 15:09 | RAD ---
EXAM: CHEST ONE VIEW. HISTORY: Syncope. COMPARISON: 04/28/2021. FINDINGS: A frontal view of the chest is obtained. There are no confluent infiltrates. There is no pneumothorax or pleural effusion. The heart is not en larged. IMPRESSION: 1. No confluent infiltrates. Electronically signed by: Ava Briones MD (05/06/2021 3:07 PM) [facility]
--- NOTE | 2021-05-06 15:11 | RAD ---
EXAM: CT HEAD WITHOUT CONTRAST. HISTORY: Syncope. TECHNIQUE: Computed tomography of the head was performed without intravenous contrast. One or more of the following individualized dose reduction techniques were utilized for this examination: 1. Automated exposure control. 2. Adjustment of the mA and/or kV according to patient size. 3. Use of iterative reconstruction technique. COMPARISON: 06/27/2020. FINDINGS: There is no intracranial hemorrhage. There is a chronic lacunar infarct in the left cerebel lar hemisphere. Prominence of the lateral ventricles and hemispheric sulci indicates mild atrophy. The visualized paranasal sinuses appear clear. The orbits are unremarkable. The temporal bones are un remarkable. The calvarium reveals no suspicious lesions. IMPRESSION: 1. No acute intracranial findings. 2. Chronic left cerebellar lacunar infarct. Electronically signed by: Ava Briones MD (05/06/2021 3:09 PM) [facility]
--- NOTE | 2021-05-06 15:54 | PHYS DOC ---
Past History Past Medical History: Constipation, GERD, GI Bleed, [place], Schizophrenia, Other Additional Past Medical Histor: Raynauds;Uscdf-Gyoow-Zpiov (GEETHA REYES AIR CONDITIONING SERVICE TECHNICIAN) Past Surgical History: Tonsillectomy, Other Additional Past Surgical Histo: duodenal surgery; hernia repair (GEETHA REYES AIR CONDITIONING SERVICE TECHNICIAN) Smoking: Non-smoker Alcohol Use: None Drug Use: None (GEETHA REYES APRN) Adult General Chief Complaint Chief Complaint: SYNCOPE HPI HPI Patient is a 56-year-old male patient with a history of schizophrenia, Raynaud's phenomenon, constipation, hypothyroidism,Olser, Kern Rendu Disease with frequent nosebleeds GI bleed, microcytic hypochromic anemia, thrombocytosis, among other illnesses who presents to the ED today complaining of 2 syncope episodes prior to coming to the ED. Patient states he was sitting on his couch and passed out twice. Patient states he believes he passed out for a couple seconds (GEETHA REYES APRN) Review of Systems Review of Systems Constitutional: Denies fever or chills [] Eyes: Denies change in visual acuity, redness, or eye pain [] HENT: Denies nasal congestion or sore throat [] Respiratory: Denies cough or shortness of breath [] Cardiovascular: No additional information not addressed in HPI [] GI: Denies abdominal pain, nausea, vomiting, bloody stools or diarrhea [] : Denies dysuria or hematuria [] Musculoskeletal: Denies back pain or joint pain [] Integument: Denies rash or skin lesions [] Neurologic: Reports syncope episodes. Denies headache, focal weakness or sensory changes [] All other systems were reviewed and found to be within normal limits, except as documented in this note. (GEETHA REYES AIR CONDITIONING SERVICE TECHNICIAN) Current Medications Current Medications Current Medications Medications (Trade) Dose Ordered Sig/Tomasz Start Time Stop Time Status Last Admin Dose Admin Sodium Chloride 1,000 ml @ 1,000 mls/hr 1X ONCE 05/06/21 14:45 05/06/21 15:44 DC (GEETHA REYES APRN) Allergies Allergies Allergies Coded Allergies Type Severity Reaction Last Updated Verified aspirin Adverse Reaction Intermediate bleeding 02/05/21 Yes (GEETHA REYES APRN) Physical Exam Physical Exam Constitutional: Well developed, well nourished, no acute distress, non-toxic appearance. [] HENT: Normocephalic, atraumatic, bilateral external ears normal, oropharynx moist, no oral exudates, nose normal. [] Eyes: PERRLA, EOMI, conjunctiva normal, no discharge. [] Neck: Normal range of motion, no tenderness, supple, no stridor. [] Cardiovascular:Heart rate regular rhythm Lungs & Thorax: Bilateral breath sounds clear to auscultation [] Abdomen: Bowel sounds normal, soft, no tenderness, no masses, no pulsatile masses. [] Skin: Warm, dry, no erythema, no rash. [] Back: No tenderness, no CVA tenderness. [] Extremities: No tenderness, no cyanosis, no clubbing, ROM intact, no edema. [] Neurologic: Alert and oriented X 3, normal motor function, normal sensory function, no focal deficits noted. [] Psychologic: Flat affect, depressed mood (CHELSEAAGEETHA M AIR CONDITIONING SERVICE TECHNICIAN) Current Patient Data Lab Results Laboratory Tests Test 05/06/21 14:32 Glucose (Fingerstick) 110 mg/dL (70-99) H (STANFORDUNGA,GEETHA M AIR CONDITIONING SERVICE TECHNICIAN) EKG EKG [address] Mclean sinus rhythm HR 63 no STEMI[] (MUTUNGA,GEETHA M AIR CONDITIONING SERVICE TECHNICIAN) Radiology/Procedures Radiology/Procedures []PROCEDURE: CT HEAD WO CONTRAST EXAM: CT HEAD WITHOUT CONTRAST. HISTORY: Syncope. TECHNIQUE: Computed tomography of the head was performed without intravenous contrast. One or more of the following individualized dose reduction techniques were utilized for this examination: 1. Automated exposure control. 2. Adjustment of the mA and/or kV according to patient size. 3. Use of iterative reconstruction technique. COMPARISON: 06/27/2020. FINDINGS: There is no intracranial hemorrhage. There is a chronic lacunar infarct in the left cerebellar hemisphere. Prominence of the lateral ventricles and hemispheric sulci indicates mild atrophy. The visualized paranasal sinuses appear clear. The orbits are unremarkable. The temporal bones are unremarkable. The calvarium reveals no suspicious lesions. IMPRESSION: 1. No acute intracranial findings. 2. Chronic left cerebellar lacunar infarct. Electronically signed by: Ava Briones MD (05/06/2021 3:09 PM) [facility] DICTATED AND SIGNED BY: DARCY BRIONES MD DATE: 05/06/211506 CC: GEETHA REYES APRN; CRISS POWER MD ~MTH0 0 PROCEDURE: PORTABLE CHEST 1V EXAM: CHEST ONE VIEW. HISTORY: Syncope. COMPARISON: 04/28/2021. FINDINGS: A frontal view of the chest is obtained. There are no confluent infiltrates. There is no pneumothorax or pleural effusion. The heart is not enlarged. IMPRESSION: 1. No confluent infiltrates. Electronically signed by: Ava Briones MD (05/06/2021 3:07 PM) [facility] DICTATED AND SIGNED BY: DARCY BRIONES MD DATE: 05/06/21 1507 CC: GEETHA REYES APRN; CRISS POWER MD ~MTH0 0 (GEETHA REYES APRN) Heart Score C/O Chest Pain: N/A Risk Factors: Risk Factors: DM, Current or recent (<one month) smoker, HTN, HLP, family history of CAD, obesity. Risk Scores: Risk Factors: DM, Current or recent (<one month) smoker, HTN, HLP, family history of CAD, obesity. (GEETHA REYES APRN) Course & Med Decision Making Course & Med Decision Making Pertinent Labs and Imaging studies reviewed. (See chart for details) This is a 56-year-old male patient presenting to the ED today complaining of [address] of the head is negative, chest x-ray is negative, EKG is negative. CBC with a hemoglobin of 9.4, hematocrit 33.9 this is around patient's baseline. CMP with no acute findings, EKG is negative, troponin is normal Discharge back to home. Follow-up with PCP (GEETHA REYES APRN) Dragon Disclaimer Dragon Disclaimer This electronic medical record was generated, in whole or in part, using a voice recognition dictation system. (GEETHA REYES APRN) Attending Co-Sign The patient was seen and interviewed as well as examined at the bedside. The chart was reviewed. The case was discussed. Agree with the plan of care. (DONTAE MCLEAN DO) Departure Departure: Impression: Primary Impression: Syncope Additional Impression: Microcytic anemia Disposition: HOME / SELF CARE / HOMELESS Condition: STABLE Referrals: CRISS POWER MD (PCP) Follow up with your doctor in the course of this week Patient Instructions: Syncope Additional Instructions: Your work-up in the emergency room was negative for acute findings. Please follow-up with your doctor in the course of this week Problem Qualifiers Primary Impression: Syncope Syncope type: unspecified Qualified Codes: R55 - Syncope and collapse GEETHA REYES APRN May 06, 2021 15:54 DONTAE MCLEAN DO May 08, 2021 13:04
[2021-05-06 17:02] LABS: BASO # 0.1 x10^3/uL (0.0-0.2); BASO % 1 % (0-3); EOS # 0.1 x10^3/uL (0.0-0.7); EOS % 3 % (0-3); HEMATOCRIT 33.9 % (39.0-53.0); HEMOGLOBIN 9.4 g/dL (13.0-17.5); LYMPH # 1.2 x10^3/uL (1.0-4.8); LYMPH % 27 % (24-48); MEAN CORPUSCULAR HEMOGLOBIN 18 pg (25-35); MEAN CORPUSCULAR HGB CONC 28 g/dL (31-37); MEAN CORPUSCULAR VOLUME 64 fL (79-100); MONO # 0.3 x10^3/uL (0.0-1.1); MONO % 7 % (0-9); NEUT # 2.8 x10^3uL (1.8-7.7); NEUT % 62 % (31-73); PLATELET COUNT 368 x10^3/uL (140-400); RED BLOOD COUNT 5.33 x10^6/uL (4.30-5.70); RED CELL DISTRIBUTION WIDTH 20.1 % (11.5-14.5); WHITE BLOOD COUNT 4.5 x10^3/uL (4.0-11.0)
[2021-05-06 17:24] LABS: CALCIUM 8.5 mg/dL (8.5-10.1); GFR 77.9; POTASSIUM 3.9 mmol/L (3.5-5.1)
[2021-05-06 17:36] LABS: ALBUMIN 3.8 g/dL (3.4-5.0); ALBUMIN/GLOBULIN RATIO 1.2 (1.0-1.7); MAGNESIUM 2.3 mg/dL (1.8-2.4); TOTAL BILIRUBIN 0.3 mg/dL (0.2-1.0); TOTAL PROTEIN 6.9 g/dL (6.4-8.2)
[2021-05-06 17:49] LABS: BARBITURATES NEG (NEG); BENZODIAZEPINES NEG (NEG); CANNABINOIDS NEG (NEG); COCAINE NEG (NEG); METHADONE NEG (NEG); OPIATES NEG (NEG); PHENCYCLIDINE NEG (NEG)
[2021-05-06 17:51] LABS: AMPHETAMINE/METHAMPHETAMINE NEG (NEG)
[2021-05-06 17:53] LABS: CLARITY,URINE CLEAR; COLOR,URINE YELLOW
[2021-05-06 17:54] LABS: BACTERIA,URINE 0 /HPF (0-FEW); BILIRUBIN,URINE NEG (NEG); GLUCOSE,URINE 250 mg/dL (NEG); NITRITE,URINE NEG (NEG); RBC,URINE 0 /HPF (0-2); UROBILINOGEN,URINE 0.2 mg/dL (0.2 mg/dL); WBC,URINE 0 /HPF (0-4)
[2021-05-06 17:59] LABS: ANISOCYTOSIS MOD; HYPOCHROMIA MOD; MICROCYTOSIS MOD; OVALOCYTES PRESENT; PLT ESTIMATE ADEQUATE (ADEQUATE)
[2021-05-06 18:01] VITALS: BP 128/83
== END 2021-05-06 18:10 | disposition home or self-care (01) ==
LOC: ER 14:17
DX: R55 Syncope and collapse (principal); D50.9 Iron deficiency anemia, unspecified; K21.9 Gastro-esophageal reflux disease without esophagitis; I25.2 Old myocardial infarction; F20.9 Schizophrenia, unspecified; E03.9 Hypothyroidism, unspecified; Z88.6 Allergy status to analgesic agent
CPT/HCPCS: 36415; 70450; 71045; 80053; 80307; 81001; 82947; 83735; 83880; 84443; 84484; 85025; 93005; 99285-25

== ENCOUNTER → 2021-05-10 | Outpatient (CLI) | payer OTHER ==
[2021-05-06 18:01] VITALS: BP 128/83
[2021-05-10 11:30] LABS: BASO % 1 % (0-3); EOS # 0.2 x10^3/uL (0.0-0.7); EOS % 3 % (0-3); HEMATOCRIT 34.7 % (39.0-53.0); HEMOGLOBIN 9.8 g/dL (13.0-17.5); LYMPH # 1.1 x10^3/uL (1.0-4.8); LYMPH % 22 % (24-48); MEAN CORPUSCULAR HEMOGLOBIN 18 pg (25-35); MEAN CORPUSCULAR HGB CONC 28 g/dL (31-37); MEAN CORPUSCULAR VOLUME 62 fL (79-100); MONO # 0.3 x10^3/uL (0.0-1.1); MONO % 6 % (0-9); NEUT # 3.3 x10^3uL (1.8-7.7); NEUT % 68 % (31-73); PLATELET COUNT 444 x10^3/uL (140-400); RED BLOOD COUNT 5.58 x10^6/uL (4.30-5.70); RED CELL DISTRIBUTION WIDTH 20.6 % (11.5-14.5); WHITE BLOOD COUNT 4.9 x10^3/uL (4.0-11.0)
[2021-05-10 11:36] LABS: ALBUMIN/GLOBULIN RATIO 1.1 (1.0-1.7); CALCIUM 8.7 mg/dL (8.5-10.1); GFR 77.9; TOTAL BILIRUBIN 0.3 mg/dL (0.2-1.0); TOTAL PROTEIN 7.5 g/dL (6.4-8.2)
[2021-05-10 13:21] LABS: % ATYL 5 % (0-0); % BANDS 3 % (0-9); % BASOS 1 % (0-3); % EOS 3 % (0-5); % LYMPHS 30 % (24-48); % MONOS 2 % (0-10); % SEGS 56 % (35-66)
[2021-05-10 13:22] LABS: ANISOCYTOSIS PRESENT; HYPOCHROMIA PRESENT; MICROCYTOSIS PRESENT; OVALOCYTES PRESENT; TARGET CELLS PRESENT; TEAR DROP CELLS PRESENT
[2021-05-10 13:23] LABS: BURR CELLS PRESENT
[2021-05-10 13:24] LABS: PLT ESTIMATE ADEQUATE (ADEQUATE)
== END ==
LOC: LAB 10:24
PROVIDERS: ATTEND Clinical Nurse Specialist Psychiatric/Mental Health, Adult
DX: Z79.899 Other long term (current) drug therapy (principal)
CPT/HCPCS: 36415; 80053; 80061; 84146; 85007; 85025

== ENCOUNTER 2021-05-25 18:30 | Emergency (ER) | payer OTHER ==
[~2021-05-25] VITALS: Ht 180.3 cm; Wt 67.1 kg
[2021-05-25 19:06] VITALS: BP 145/74
--- NOTE | 2021-05-25 20:25 | PHYS DOC ---
Past History Past Medical History: Constipation, GERD, GI Bleed, MS, Schizophrenia, Other Additional Past Medical Histor: Raynauds;Adntv-Uimhf-Elsvo (DEVORAH GARY APRN) Past Surgical History: Tonsillectomy, Other Additional Past Surgical Histo: duodenal surgery; hernia repair (DEVORAH GARY APRN) Smoking: Non-smoker Alcohol Use: None Drug Use: None (DEVORAH GARY APRN) General Adult EDM: Chief Complaint: OTHER COMPLAINTS HPI: HPI: Patient is a 56-year-old male that presents today with "mental strain ". Patient is well-known to the emergency department patient has a past medical history of schizophrenia and comes to the emergency department quite often asking for a sandwich and a place to rest. Patient does have a place to stay he states that he thought he heard someone tell him that he does not have a home today but according to his nursing staff he does have a place that he lives at. Patient has no acute distress has no other complaints besides that he is asking for another sandwich (DEVORAH GARY APRN) Review of Systems: Review of Systems: Constitutional: Denies fever or chills Eyes: Denies change in visual acuity HENT: Denies nasal congestion or sore throat Respiratory: Denies cough or shortness of breath Cardiovascular: Denies chest pain or edema GI: Denies abdominal pain, nausea, vomiting, bloody stools or diarrhea : Denies dysuria Musculoskeletal: Denies back pain or joint pain Integument: Denies rash Neurologic: Denies headache, focal weakness or sensory changes Endocrine: Denies polyuria or polydipsia Lymphatic: Denies swollen glands Psychiatric: Mental strain (DEVORAH GARY [employer] REGISTRAR) Allergies: Allergies: Allergies Coded Allergies Type Severity Reaction Last Updated Verified aspirin Adverse Reaction Intermediate bleeding 02/05/21 Yes (DEVORAH GARY APRN) Physical Exam: PE: Constitutional: Well developed, well nourished, no acute distress, non-toxic appearance. [] HENT: Normocephalic, atraumatic, bilateral external ears normal, oropharynx moist, no oral exudates, nose normal. [] Eyes: PERRLA, EOMI, conjunctiva normal, no discharge. [] Neck: Normal range of motion, no tenderness, supple, no stridor. [] Cardiovascular:Heart rate regular rhythm, no murmur [] Lungs & Thorax: Bilateral breath sounds clear to auscultation [] Abdomen: Bowel sounds normal, soft, no tenderness, no masses, no pulsatile masses. [] Skin: Warm, dry, no erythema, no rash. [] Back: No tenderness, no CVA tenderness. [] Extremities: No tenderness, no cyanosis, no clubbing, ROM intact, no edema. [] Neurologic: Alert and oriented X 3, normal motor function, normal sensory function, no focal deficits noted. [] Psychologic: Affect flat, judgement normal, mood normal for self [] (DEVORAH GARY APRN) Current Patient Data: Vital Signs: Vital Signs Date Time Temp Pulse Resp B/P (MAP) Pulse Ox O2 Delivery O2 Flow Rate FiO2 05/25/21 19:06 98.4 69 18 145/74 (97) 99 Room Air (DEVORAH GARY APRN) EKG: EKG: [] (DEVORAH GARY APRN) Radiology/Procedures: Radiology/Procedures: [] (DEVORAH GARY APRN) Heart Score: C/O Chest Pain: N/A Risk Factors: Risk Factors: DM, Current or recent (<one month) smoker, HTN, HLP, family history of CAD, obesity. Risk Scores: Score 0 - 3: 2.5% MACE over next 6 weeks - Discharge Home Score 4 - 6: 20.3% MACE over next 6 weeks - Admit for Clinical Observation Score 7 - 10: 72.7% MACE over next 6 weeks - Early Invasive Strategies (DEVORAH GARY APRN) Course & Med Decision Making: Course & Med Decision Making Pertinent Labs and Imaging studies reviewed. (See chart for details) Patient has presented 24 times in the year 2020 with similar complaints in the past. Patient was given 2 meals while here in the emergency department. Patient states he is feeling better you are ready to go home. Nursing staff informed (DEVORAH GARY APRN) Dragon Disclaimer: Dragon Disclaimer: This electronic medical record was generated, in whole or in part, using a voice recognition dictation system. (DEVORAH GARY APRN) Departure Departure: Impression: Primary Impression: Stress Disposition: HOME / SELF CARE / HOMELESS Condition: STABLE Referrals: CRISS POWER MD (PCP) Patient Instructions: Stress Additional Instructions: Follow-up with your primary care physician as needed Dragon Disclaimer This chart was dictated in whole or in part using Voice Recognition software in a busy, high-work load, and often noisy Emergency Department environment. It may contain unintended and wholly unrecognized errors or omissions. (KENDELL STEWART MD) Attending Signature Attending Signature I have participated in the care of this patient and I have reviewed and agree with all pertinent clinical information above including history, exam, and recommendations. (KENDELL STEWART MD) DEVORAH GARY APRN May 25, 2021 20:25 KENDELL STEWART MD May 27, 2021 20:25
== END 2021-05-25 20:35 | disposition home or self-care (01) ==
LOC: ER 18:30
DX: F43.9 Reaction to severe stress, unspecified (principal); K21.9 Gastro-esophageal reflux disease without esophagitis
CPT/HCPCS: 99281-25

== ENCOUNTER 2021-05-26 20:23 | Emergency (ER) | payer OTHER ==
[~2021-05-26] VITALS: Ht 180.3 cm; Wt 63.7 kg
--- NOTE | 2021-05-26 20:30 | PHYS DOC ---
Past History Past Medical History: Constipation, GERD, GI Bleed, [place], Schizophrenia, Other Additional Past Medical Histor: Raynauds;Gvdou-Hsscf-Fzqoq (KENDELL STEWART MD) Past Medical History: Schizophrenia (DEVORAH GARY APRN) Past Surgical History: Tonsillectomy, Other Additional Past Surgical Histo: duodenal surgery; hernia repair (KENDELL STEWART MD) Smoking: Non-smoker Alcohol Use: None Drug Use: None (KENDELL STEWART MD) General Adult EDM: Chief Complaint: ANKLE PROBLEM HPI: HPI: Patient is a 56 year old male who presents with schizophrenia. See Luis Fernando for tx. and evaluation of this pt. (KENDELL STEWART MD) HPI: Patient is a 56-year-old male that is well-known to this emergency department is here for bilateral ankle pain. Patient denies trauma, patient does have socks and tennis shoes on. (DEVORAH GARY APRN) Review of Systems: Review of Systems: Constitutional: Denies fever or chills Eyes: Denies change in visual acuity HENT: Denies nasal congestion or sore throat Respiratory: Denies cough or shortness of breath Cardiovascular: Denies chest pain or edema GI: Denies abdominal pain, nausea, vomiting, bloody stools or diarrhea : Denies dysuria Musculoskeletal: Complaints of ankle pain Integument: Denies rash Neurologic: Denies headache, focal weakness or sensory changes Endocrine: Denies polyuria or polydipsia Lymphatic: Denies swollen glands Psychiatric: Denies depression or anxiety Hallucinations-auditory (KENDELL STEWART MD) Review of Systems: Patient only complains of bilateral leg pain all other review of systems is negative (DEVORAH GARY APRN) Allergies: Allergies: Allergies Coded Allergies Type Severity Reaction Last Updated Verified aspirin Adverse Reaction Intermediate bleeding 02/05/21 Yes (KENDELL STEWART MD) Physical Exam: PE: Constitutional: no acute distress, non-toxic appearance. [] HENT: Normocephalic, atraumatic, bilateral external ears normal, oropharynx moist, no oral exudates, nose normal. [] Eyes: PERRLA, EOMI, conjunctiva normal, no discharge. [] Neck: Normal range of motion, no tenderness, supple, no stridor. [] Cardiovascular:Heart rate regular rhythm, no murmur [] Lungs & Thorax: Bilateral breath sounds clear to auscultation [] Abdomen: Bowel sounds normal, soft, no tenderness, no masses, no pulsatile masses. [] Skin: Warm, dry, no erythema, no rash. Skin lesions Back: No tenderness, no CVA tenderness. [] Extremities: No tenderness, no cyanosis, no clubbing, ROM intact, no edema. [] Neurologic: Alert and oriented X 3, normal motor function, normal sensory function, no focal deficits noted. [] Psychologic: Affect normal, judgement normal, mood normal. [] (KENDELL STEWART MD) PE: Bilateral legs examined left leg does have trace edema noted there is a healing wound noted on the inner aspect of the right ankle as well, patient also has a healing wound on his left foot, no signs and symptoms of infection noted. Pedal pulses bilaterally are 2+, neurovascular intact distal to the pain. Cap refill less than 2 seconds (DEVORAH GARY APRN) Current Patient Data: Vital Signs: Vital Signs Date Time Temp Pulse Resp B/P (MAP) Pulse Ox O2 Delivery O2 Flow Rate FiO2 05/26/21 20:41 97.5 68 18 105/55 (72) 98 Room Air 05/26/21 20:30 97.5 68 18 105/55 (72) 98 Room Air (DEVORAH GARY APRN) EKG: EKG: [] (KENDELL STEWART MD) Radiology/Procedures: Radiology/Procedures: [] (KENDELL STEWART MD) Radiology/Procedures: REASON: pain no trauma - CHRONIC PROCEDURE: ANKLE BILAT 3V Bilateral ankles 3 views each. HISTORY: Chronic pain Left ankle 3 views were taken of the left ankle. There is not evidence of an acute fracture or osseous abnormality. There is mild soft tissue swelling at the ankle. There is vascular calcification. Right ankle 3 views were taken of the right ankle. There is not evidence of a fracture or osseous abnormality. There is mild soft tissue swelling. Extensive vascular calcification. IMPRESSION: 1. No fracture or osseous abnormality noted in either ankle. 2. Mild soft tissue swelling bilaterally. 3. Extensive vascular calcification bilaterally. Electronically signed by: Jerome Suarez MD (05/26/2021 9:40 PM) [facility] (DEVORAH GARY APRN) Heart Score: Risk Factors: Risk Factors: DM, Current or recent (<one month) smoker, HTN, HLP, family history of CAD, obesity. Risk Scores: Score 0 - 3: 2.5% MACE over next 6 weeks - Discharge Home Score 4 - 6: 20.3% MACE over next 6 weeks - Admit for Clinical Observation Score 7 - 10: 72.7% MACE over next 6 weeks - Early Invasive Strategies (KENDELL STEWART MD) C/O Chest Pain: N/A (DEVORAH GARY APRN) Course & Med Decision Making: Course & Med Decision Making Pertinent Labs and Imaging studies reviewed. (See chart for details) [] (KENDELL STEWART MD) Course & Med Decision Making Bilateral ankle radiological films are negative for acute injury, will have patient follow-up with his primary care physician for any further management or follow-up with podiatry for any further management of this concern (DEVORAH GARY APRN) Dragon Disclaimer: Dragon Disclaimer: This electronic medical record was generated, in whole or in part, using a voice recognition dictation system. (KENDELL STEWART MD) Departure Departure: Impression: Primary Impression: Bilateral ankle pain Qualified Codes: M25.571 - Pain in right ankle and joints of right foot; M25.572 - Pain in left ankle and joints of left foot Disposition: 01 HOME / SELF CARE / HOMELESS Condition: STABLE Referrals: CRISS POWER MD (PCP) TIANNA PHELPS DPM Patient Instructions: Ankle Pain Additional Instructions: Take Tylenol as needed for pain Continue wear good supportive shoes while walking May try compression stockings to help with pain in your lower legs and ankles Follow-up with your primary care physician or Dr. Mendosa and podiatry for further management of your ankle pain KENDELL STEWART MD May 26, 2021 20:30 DEVORAH GARY APRN May 26, 2021 21:52
[2021-05-26 20:41] VITALS: BP 105/55
[2021-05-26] MEDS ORDERED: ACETAMINOPHEN 325 MG TABLET PO ONE ×2 (20:45)
--- NOTE | 2021-05-26 21:43 | RAD ---
Bilateral ankles 3 views each. HISTORY: Chronic pain Left ankle 3 views were taken of the left ankle. There is not evidence of an acute fracture or osseous abnormali ty. There is mild soft tissue swelling at the ankle. There is vascular calcification. Right ankle 3 views were taken of the right ankle. There is not evidence of a fracture or osseous abnormality. Th ere is mild soft tissue swelling. Extensive vascular calcification. IMPRESSION: 1. No fracture or osseous abnormality noted in either ankle. 2. Mild soft tissue swelling bilaterally. 3. Extensive vascular calcification bilaterally. Electronically signed by: Jerome Suarez MD (05/26/2021 9:40 PM) [facility]
== END 2021-05-26 22:12 | disposition home or self-care (01) ==
LOC: ER 20:23
DX: M25.572 Pain in left ankle and joints of left foot (principal); M25.571 Pain in right ankle and joints of right foot; K21.9 Gastro-esophageal reflux disease without esophagitis
CPT/HCPCS: 73610-50; 99283-25

== ENCOUNTER 2021-05-31 18:49 | Emergency (ER) | payer OTHER ==
[~2021-05-31] VITALS: Ht 180.3 cm; Wt 63.7 kg
[2021-05-31 18:49] VITALS: BP 114/65
[2021-05-31 20:47] LABS: CALCIUM 8.3 mg/dL (8.5-10.1); GFR 77.9; POTASSIUM 3.6 mmol/L (3.5-5.1)
[2021-05-31 20:59] LABS: BASO % 1 % (0-3); EOS # 0.2 x10^3/uL (0.0-0.7); EOS % 3 % (0-3); HEMATOCRIT 31.4 % (39.0-53.0); HEMOGLOBIN 8.7 g/dL (13.0-17.5); LYMPH % 21 % (24-48); MEAN CORPUSCULAR HEMOGLOBIN 17 pg (25-35); MEAN CORPUSCULAR HGB CONC 28 g/dL (31-37); MEAN CORPUSCULAR VOLUME 62 fL (79-100); MONO # 0.5 x10^3/uL (0.0-1.1); MONO % 11 % (0-9); NEUT # 3.1 x10^3uL (1.8-7.7); NEUT % 65 % (31-73); PLATELET COUNT 446 x10^3/uL (140-400); RED CELL DISTRIBUTION WIDTH 20.5 % (11.5-14.5); WHITE BLOOD COUNT 4.8 x10^3/uL (4.0-11.0)
[2021-05-31 21:23] LABS: HYPOCHROMIA SLIGHT; MICROCYTOSIS MOD; PLT ESTIMATE ADEQUATE (ADEQUATE)
[2021-05-31 21:24] LABS: ANISOCYTOSIS SLIGHT; POIKILOCYTOSIS SLIGHT
--- NOTE | 2021-05-31 21:32 | PHYS DOC ---
Past History Past Medical History: Schizophrenia Additional Past Medical Histor: Raynauds;Sjlhb-Okspv-Tivlq (NIRMAL BRAGA APRN) Past Surgical History: Tonsillectomy, Other Additional Past Surgical Histo: duodenal surgery; hernia repair (NIRMAL BRAGA APRN) Smoking: Non-smoker Alcohol Use: None Drug Use: None (NIRMAL BRAGA APRN) General Adult EDM: Chief Complaint: PSYCH EVALUATION HPI: HPI: Patient is a 56-year-old male presents with suicidal ideation. Patient states that he punched himself in the jaw and he wants to . Denies HI. Patient states "the voices are telling me to do mean things myself". Denies all other complaints. Patient has history of schizophrenia. (NIRMAL BRAGA APRN) Review of Systems: Review of Systems: ROS At least 10 ROS systems have been reviewed and are negative except as documented in the HPI. General: Negative except as outlined in HPI above. Skin: Negative except as outlined in HPI above. HEENT: Negative except as outlined in HPI above. Neck: Negative except as outlined in HPI above. Respiratory: Negative except as outlined in HPI above.. Cardiovascular: Negative except as outlined in HPI above. Abdomen: Negative except as outlined in HPI above. : Negative except as outlined in HPI above. Back/MSK: Negative except as outlined in HPI above. Neuro: Negative except as outlined in HPI above. Psych: Negative except as outlined in HPI above. (NIRMAL BRAGA APRN) Allergies: Allergies: Allergies Coded Allergies Type Severity Reaction Last Updated Verified aspirin Adverse Reaction Intermediate bleeding 05/26/21 Yes (NIRMAL BRAGA APRN) Physical Exam: PE: Constitutional: Well developed, well nourished, no acute distress, non-toxic appearance. [] HENT: Normocephalic, atraumatic, bilateral external ears normal, oropharynx moist, no oral exudates, nose normal. [] Eyes: PERRLA, EOMI, conjunctiva normal, no discharge. [] Neck: Normal range of motion, no tenderness, supple, no stridor. [] Cardiovascular:Heart rate regular rhythm, no murmur [] Lungs & Thorax: Bilateral breath sounds clear to auscultation [] Abdomen: Bowel sounds normal, soft, no tenderness, no masses, no pulsatile masses. [] Skin: Warm, dry, no erythema, no rash. [] Back: No tenderness, no CVA tenderness. [] Extremities: No tenderness, no cyanosis, no clubbing, ROM intact, no edema. [] Neurologic: Alert and oriented X 3, normal motor function, normal sensory function, no focal deficits noted. [] Psychologic: Abnormal judgment, flat affect (BRAGA,NIRMAL PILLOWCASE TURNER) Current Patient Data: Labs: Laboratory Tests Test 05/31/21 19:16 05/31/21 19:37 SARS-CoV-2 Antigen (Rapid) Negative (NEGATIVE) White Blood Count 4.8 x10^3/uL (4.0-11.0) Red Blood Count 5.10 x10^6/uL (4.30-5.70) Hemoglobin 8.7 g/dL (13.0-17.5) L Hematocrit 31.4 % (39.0-53.0) L Mean Corpuscular Volume 62 fL (79-100) L Mean Corpuscular Hemoglobin 17 pg (25-35) L Mean Corpuscular Hemoglobin Concent 28 g/dL (31-37) L Red Cell Distribution Width 20.5 % (11.5-14.5) H Platelet Count 446 x10^3/uL (140-400) H Neutrophils (%) (Auto) 65 % (31-73) Lymphocytes (%) (Auto) 21 % (24-48) L Monocytes (%) (Auto) 11 % (0-9) H Eosinophils (%) (Auto) 3 % (0-3) Basophils (%) (Auto) 1 % (0-3) Neutrophils # (Auto) 3.1 x10^3uL (1.8-7.7) Lymphocytes # (Auto) 1.0 x10^3/uL (1.0-4.8) Monocytes # (Auto) 0.5 x10^3/uL (0.0-1.1) Eosinophils # (Auto) 0.2 x10^3/uL (0.0-0.7) Basophils # (Auto) 0.0 x10^3/uL (0.0-0.2) Platelet Estimate Pending Sodium Level 142 mmol/L (136-145) Potassium Level 3.6 mmol/L (3.5-5.1) Chloride Level 104 mmol/L (98-107) Carbon Dioxide Level 29 mmol/L (21-32) Anion Gap 9 (6-14) Blood Urea Nitrogen 19 mg/dL (8-26) Creatinine 1.0 mg/dL (0.7-1.3) Estimated GFR (Cockcroft-Gault) 77.9 Glucose Level 84 mg/dL (70-99) Calcium Level 8.3 mg/dL (8.5-10.1) L Vital Signs: Vital Signs Date Time Temp Pulse Resp B/P (MAP) Pulse Ox O2 Delivery O2 Flow Rate FiO2 05/31/21 18:49 97.2 61 16 114/65 (81) 99 Room Air (NIRMAL BRAGA APRN) EKG: EKG: [] (NIRMAL BRAGA APRN) Radiology/Procedures: Radiology/Procedures: [] (NIRMAL BRAGA APRN) Heart Score: C/O Chest Pain: No Risk Factors: Risk Factors: DM, Current or recent (<one month) smoker, HTN, HLP, family history of CAD, obesity. Risk Scores: Score 0 - 3: 2.5% MACE over next 6 weeks - Discharge Home Score 4 - 6: 20.3% MACE over next 6 weeks - Admit for Clinical Observation Score 7 - 10: 72.7% MACE over next 6 weeks - Early Invasive Strategies (NIRMAL BRAGA APRN) Course & Med Decision Making: Course & Med Decision Making Pertinent Labs and Imaging studies reviewed. (See chart for details) [] 56-year-old male presents with SI. Work-up in ER consisted of EKG, basic labs, UA and UDS, Covid. PAT team consulted. PAT team spoke with patient. Patient is denying SI at this time. Patient is going to follow-up with guidance Center tomorrow. Patient is homeless and most likely was wanting somewhere to stay. Patient has been seen for same complaint and numerous times, and looking for a warm place to stay and something to eat. Patient given a meal tray. Patient is aware that he needed to follow-up with guidance Center tomorrow. Patient agrees with discharge plan. Patient is hemodynamically stable upon disposition. (NIRMAL BRAGA APRN) Course & Med Decision Making Did not see or evaluate patient. Did not discuss patient with [employer] ARTIFICER HELPER. Agree with OR[employer]NCE ARTIFICER HELPER's work-up and disposition per note. (BENJIE MAN MD) Dragon Disclaimer: Dragon Disclaimer: This electronic medical record was generated, in whole or in part, using a voice recognition dictation system. (NIRMAL BRAGA APRN) Departure Departure: Impression: Primary Impression: Depression with suicidal ideation Disposition: HOME / SELF CARE / HOMELESS Condition: STABLE Referrals: CRISS POWER MD (PCP) Patient Instructions: Depression, Adult, [id number] Additional Instructions: You were seen in the emergency room for depression and self-harm behavior. Ple ase follow-up with guidance Center tomorrow. Return to the emergency room with worsening symptoms or concerns. EMERGENCY DEPARTMENT GENERAL DISCHARGE INSTRUCTIONS Thank you for coming to [facility] (ED) today and trusting us with you care. We trust that you had a positivie experience in our Emergency Department. If you wish to speak to the department management, you may call the director at [phone]. YOUR FOLLOW UP INSTRUCTIONS ARE FOLLOWS: 1. Do you have a private Doctor? If you do not have a private doctor, please ask for a resource list of physicians or clinics that may be able to assist you with follow up care. 2. The Emergency Physician has interpreted your x-rays. The X-Ray specialist will also review them. If there is a change in the findings, you will be notified in 48 hours when at all possible. 3. A lab test or culture has been done, your results will be reviewed and you will be notified if you need a change in treatment. ADDITIONAL INSTRUCTIONS AND INFORMATION: 1. Your care today has been supervised by a physician who is specially trained in emergency care. Many problems require more than one evaluation for a complete diagnosis and treatment. We recommend that you schedule your follow up appointment as recommended to ensure complete treatment of you illness or injury. If you are unable to obtain follow up care and continue to have a problem, or if your condition worsens, we recommend that you return to the ED. 2. We are not able to safely determine your condition over the phone nor are we able to give sound medical advice over the phone. For these safety reasons, if you call for medical advice we will ask you to come to the ED for further evaluation. 3. If you have any questions regarding these discharge instructions please call the ED at [phone]. SAFETY INFORMATION: In the interest of safety, wellness, and injury prevention; we encourage you to wear your sealbelt, if you smoke; quite smoking, and we encourage family to use a protective helmet for bicycling and other sporting events that present an increased risk for head injury. IF YOUR SYMPTOMS WORSEN OR NEW SYMPTOMS DEVELOP, OR YOU HAVE CONCERNS ABOUT YOUR CONDITION; OR IF YOUR CONDITION WORSENS WHILE YOU ARE WAITING FOR YOUR FOLLOW UP APPOINTMENT; EITHER CONTACT YOUR PRIMARY CARE DOCTOR, THE PHYSICIAN WHOSE NAME AND NUMBER YOU WERE GIVEN, OR RETURN TO THE ED IMMEDIATELY. NIRMAL BRAGA APRN May 31, 2021 21:32 BENJIE MAN MD May 31, 2021 23:49
[2021-05-31 22:12] LABS: ACETAMIN < 2.0 mcg/mL (10-30); ETHANOL < 10 mg/dL (0-10); SALIC < 2.8 mg/dL (2.8-20.0)
--- NOTE | 2021-06-01 01:45 | EKG ---
[address] [address] Test Date: 2021-05-31 Test Time: 21:18:20 Pat Name: BOLIVAR JEFF Department: Room: Gender: M Comber Tender: : 1965 Requested By: NIRMAL BRAGA Order Number: [id number] Reading MD: [place] Measurements Intervals [place] Rate: 59 P: VT: QRS: 55 QRSD: 84 T: 70 QT: 372 QTc: 372 Interpretive Statements SINUS RHYTHM Electronically Signed On 06-04-2021 10:30:00 [employer] by [place]
== END 2021-05-31 22:10 | disposition home or self-care (01) ==
LOC: ER 18:49
DX: R45.851 Suicidal ideations (principal); Z20.9 Contact with and (suspected) exposure to unspecified communicable disease; Z20.822 Contact with and (suspected) exposure to COVID-19
CPT/HCPCS: 36415; 80048; 80329; 85025; 87426; 93005; 99285; C9803; G0480; U0003

== ENCOUNTER 2021-07-08 02:32 | Emergency (ER) | payer OTHER ==
[~2021-07-08] VITALS: Ht 180.3 cm; Wt 63.7 kg
[2021-07-08 02:35] VITALS: BP 114/65
--- NOTE | 2021-07-08 04:06 | PHYS DOC ---
Past History Past Medical History: Schizophrenia Additional Past Medical Histor: Raynauds;Alkce-Mltim-Yhmue Past Surgical History: Tonsillectomy, Other Additional Past Surgical Histo: duodenal surgery; hernia repair Smoking: Non-smoker Alcohol Use: None Drug Use: None General Adult EDM: Chief Complaint: OTHER COMPLAINTS HPI: HPI: 56-year-old male presents via EMS because he has been "not eating right". The patient is well-known to the emergency room. He has a history of audible hallucinations. He states that he has been unable to get food for the house because of the weather. He denies any other medical complaints this time. Review of Systems: Review of Systems: Constitutional: Denies fever or chills Eyes: Denies change in visual acuity HENT: Denies nasal congestion or sore throat Respiratory: Denies cough or shortness of breath Cardiovascular: Denies chest pain or edema GI: Denies abdominal pain, nausea, vomiting, bloody stools or diarrhea : Denies dysuria Musculoskeletal: Denies back pain or joint pain Integument: Denies rash Neurologic: Denies headache, focal weakness or sensory changes Endocrine: Denies polyuria or polydipsia Lymphatic: Denies swollen glands Psychiatric: Denies depression or anxiety Allergies: Allergies: Allergies Coded Allergies Type Severity Reaction Last Updated Verified aspirin Adverse Reaction Intermediate bleeding 05/26/21 Yes Physical Exam: PE: Constitutional: Well developed, well nourished, no acute distress, non-toxic appearance. [] HENT: Normocephalic, atraumatic, bilateral external ears normal, oropharynx moist, no oral exudates, nose normal. [] Eyes: PERRLA, EOMI, conjunctiva normal, no discharge. [] Neck: Normal range of motion, no tenderness, supple, no stridor. [] Cardiovascular: Heart rate regular rhythm, no murmur [] Lungs & Thorax: Bilateral breath sounds clear to auscultation [] Abdomen: Bowel sounds normal, soft, no tenderness, no masses, no pulsatile masses. [] Skin: Warm, dry, no erythema, no rash. [] Back: No tenderness, no CVA tenderness. [] Extremities: No tenderness, no cyanosis, no clubbing, ROM intact, no edema. [] Neurologic: Alert and oriented X 3, normal motor function, normal sensory function, no focal deficits noted. [] Psychologic: Affect flat, judgement normal, mood normal. [] Current Patient Data: Vital Signs: Vital Signs Date Time Temp Pulse Resp B/P (MAP) Pulse Ox O2 Delivery O2 Flow Rate FiO2 07/08/21 02:35 98.2 80 16 114/65 (81) 98 Room Air EKG: EKG: [] Radiology/Procedures: Radiology/Procedures: [] Heart Score: C/O Chest Pain: N/A Risk Factors: Risk Factors: DM, Current or recent (<one month) smoker, HTN, HLP, family history of CAD, obesity. Risk Scores: Score 0 - 3: 2.5% MACE over next 6 weeks - Discharge Home Score 4 - 6: 20.3% MACE over next 6 weeks - Admit for Clinical Observation Score 7 - 10: 72.7% MACE over next 6 weeks - Early Invasive Strategies Course & Med Decision Making: Course & Med Decision Making Pertinent Labs and Imaging studies reviewed. (See chart for details) It seems like the patient may have run out of food at his house. We have given a couple sandwiches in the emergency room. He states feeling better and has no further complaints this time. He is stable for discharge. [] Dragon Disclaimer: Dragon Disclaimer: This electronic medical record was generated, in whole or in part, using a voice recognition dictation system. Departure Departure: Impression: Primary Impression: Chronic schizophrenia Disposition: 01 HOME / SELF CARE / HOMELESS Condition: STABLE Referrals: CRISS POWER MD (PCP) DONTAE MCLEAN DO Jul 08, 2021 04:06
== END 2021-07-08 04:19 | disposition home or self-care (01) ==
LOC: ER 02:32
DX: F20.9 Schizophrenia, unspecified (principal); Z88.6 Allergy status to analgesic agent
CPT/HCPCS: 99283

== ENCOUNTER 2021-07-21 14:22 | Emergency (ER) | payer OTHER ==
[~2021-07-21] VITALS: Ht 180.3 cm; Wt 63.7 kg
--- NOTE | 2021-07-21 15:05 | PHYS DOC ---
Past History Past Medical History: Schizophrenia Additional Past Medical Histor: Raynauds;Wywkj-Vcaak-Jlawd (OLIVIA PAYNE APRN) Past Surgical History: Tonsillectomy, Other Additional Past Surgical Histo: duodenal surgery; hernia repair (OLIVIA PAYNE APRN) Smoking: Non-smoker Alcohol Use: None Drug Use: None (OLIVIA PAYNE APRN) General Adult EDM: Chief Complaint: HALLUCINATIONS AUDIBLE/VISUAL HPI: HPI: Patient is a 56-year-old male who presents to the emergency department today for auditory hallucinations that are telling him to not drink any water. Patient states that its been 1 day since he had any water but reports eating food. Patient vital signs are stable. He denies any alcohol use, drug use, nausea, vomiting, abdominal pain, chest pain, shortness of breath, suicidal or homicidal ideation. Patient takes Abilify and follows up with the [facility] outpatient. (OLIVIA PAYNE APRN) Review of Systems: Review of Systems: Constitutional: negative unless reported in HPI Eyes: negative unless reported in HPI HENT: negative unless reported in HPI Respiratory: negative unless reported in HPI Cardiovascular: negative unless reported in HPI GI: negative unless reported in HPI : negative unless reported in HPI Musculoskeletal: negative unless reported in HPI Integument: negative unless reported in HPI Neurologic: negative unless reported in HPI Endocrine: negative unless reported in HPI Lymphatic: negative unless reported in HPI Psychiatric: negative unless reported in HPI (OLIVIA PAYNE APRN) Allergies: Allergies: Allergies Coded Allergies Type Severity Reaction Last Updated Verified aspirin Adverse Reaction Intermediate bleeding 07/21/21 Yes (OLIVIA PAYNE APRN) Physical Exam: PE: Constitutional: Well developed, well nourished, no acute distress, non-toxic appearance. [] HENT: Normocephalic, atraumatic, bilateral external ears normal, oropharynx moist, no oral exudates, nose normal. [] Eyes: PERRL, EOMI, conjunctiva normal, no discharge. [] Neck: Normal range of motion, no tenderness, supple, no stridor. [] Cardiovascular:Heart rate regular rhythm, no murmur [] Lungs & Thorax: Bilateral breath sounds clear to auscultation [] Abdomen: Bowel sounds normal, soft, no tenderness, no masses, no pulsatile masses. [] Skin: Warm, dry, no erythema, no rash normal skin turgor. [] Back: Normal range of motion Extremities: No tenderness, no cyanosis, no clubbing, ROM intact, no edema. [] Neurologic: Alert and oriented X 3, normal motor function, normal sensory function, no focal deficits noted. [] Psychologic: Affect normal, judgement normal, mood normal. [] (OLIVIA PAYNE APRN) Current Patient Data: Labs: Laboratory Tests Test 07/21/21 14:42 07/21/21 15:54 Urine Collection Type Clean catch Urine Color Yellow Urine Clarity Cloudy Urine pH 5.5 Urine Specific [place] 1.025 Urine Protein 30 mg/dl Urine Glucose (UA) 100 mg/dL Urine Ketones (Stick) Neg mg/dL Urine Blood Neg Urine Nitrite Neg Urine Bilirubin Neg Urine Urobilinogen Dipstick 1.0 mg/dL Urine Leukocyte Esterase Neg Urine RBC 0 /HPF Urine WBC 0 /HPF Urine Squamous Epithelial Cells Occ /LPF Urine Amorphous Sediment Present /HPF Urine Bacteria 0 /HPF Urine Opiates Screen Neg Urine Methadone Screen Neg Urine Barbiturates Neg Urine Phencyclidine Screen Neg Urine Amphetamine/Methamphetamine Neg Urine Benzodiazepines Screen Neg Urine Cocaine Screen Neg Urine Cannabinoids Screen Neg Urine Ethyl Alcohol Neg White Blood Count 8.4 x10^3/uL Red Blood Count 5.57 x10^6/uL Hemoglobin 9.5 g/dL Hematocrit 35.5 % Mean Corpuscular Volume 64 fL Mean Corpuscular Hemoglobin 17 pg Mean Corpuscular Hemoglobin Concent 27 g/dL Red Cell Distribution Width 23.4 % Platelet Count 734 x10^3/uL Neutrophils (%) (Auto) 71 % Lymphocytes (%) (Auto) 19 % Monocytes (%) (Auto) 6 % Eosinophils (%) (Auto) 3 % Basophils (%) (Auto) 1 % Neutrophils # (Auto) 5.9 x10^3uL Lymphocytes # (Auto) 1.6 x10^3/uL Monocytes # (Auto) 0.5 x10^3/uL Eosinophils # (Auto) 0.2 x10^3/uL Basophils # (Auto) 0.1 x10^3/uL Platelet Estimate Pending Sodium Level 139 mmol/L Potassium Level 4.8 mmol/L Chloride Level 101 mmol/L Carbon Dioxide Level 27 mmol/L Anion Gap 11 Blood Urea Nitrogen 17 mg/dL Creatinine 1.0 mg/dL Estimated GFR (Cockcroft-Gault) 77.9 BUN/Creatinine Ratio 17 Glucose Level 70 mg/dL Calcium Level 8.3 mg/dL Total Bilirubin 0.5 mg/dL Aspartate Amino Transf (AST/SGOT) 16 U/L Alanine Aminotransferase (ALT/SGPT) 14 U/L Alkaline Phosphatase 74 U/L Total Protein 7.3 g/dL Albumin 3.4 g/dL Albumin/Globulin Ratio 0.9 Ethyl Alcohol Level < 10 mg/dL Vital Signs: Vital Signs Date Time Temp Pulse Resp B/P (MAP) Pulse Ox O2 Delivery O2 Flow Rate FiO2 07/21/21 14:26 98.5 89 20 120/74 (89) 99 Room Air (OLIVIA PAYNE APRN) EKG: EKG: [] (OLIVIA PAYNE APRN) Radiology/Procedures: Radiology/Procedures: [] (OLIVIA PAYNE APRN) Heart Score: C/O Chest Pain: No Risk Factors: Risk Factors: DM, Current or recent (<one month) smoker, HTN, HLP, family history of CAD, obesity. Risk Scores: Score 0 - 3: 2.5% MACE over next 6 weeks - Discharge Home Score 4 - 6: 20.3% MACE over next 6 weeks - Admit for Clinical Observation Score 7 - 10: 72.7% MACE over next 6 weeks - Early Invasive Strategies (OLIVIA PAYNE APRN) Course & Med Decision Making: Course & Med Decision Making Pertinent Labs and Imaging studies reviewed. (See chart for details) Patient is reporting auditory hallucinations telling him not to drink any water. Work-up in the ER consisted of blood work, urinalysis. Patient will be evaluated by member the psychiatric assessment team. His physical exam is reassuring and his vital signs are stable. Patient reports that he has been eating food. Patient does take Abilify and follows up outpatient with the guidance Center. He denies any suicidal or homicidal ideation patient's blood work is unremarkable, urinalysis unremarkable. Patient has no laboratory indication of dehydration, normal renal function, no ketones in urine. Patient was medically cleared at this time. Patient was evaluated by member of the psychiatric assessment team and a safety plan was developed with the patient. Patient given resources for outpatient follow-up. Patient states that he follows up with the guidance Center and also has a case aide that visits him. Patient advised to adhere to the safety plan that was developed. He was also advised to continue to drink water and eat food and take all of his medications as directed. I discussed with patient all findings and diagnostic testing as well as the need to follow-up with PCP for further evaluation and treatment or return to the ER if any new or worsening symptoms. Strict return precautions were also discussed at length. Patient voiced understanding and agreement with the plan. Patient is hemodynamically stable at the time of disposition. (OLIVIA PAYNE APRN) Dragon Disclaimer: Dragon Disclaimer: This electronic medical record was generated, in whole or in part, using a voice recognition dictation system. (OLIVIA PAYNE APRN) Departure Departure: Impression: Primary Impression: Auditory hallucinations Disposition: HOME / SELF CARE / HOMELESS Condition: GOOD Referrals: CRISS POWER MD (PCP) Patient Instructions: Hallucinations and Delusions Additional Instructions: You were seen in the emergency department today for auditory hallucinations telling you not to drink any water. Your lab work and urine were reassuring. You were evaluated by member of the psychiatric assessment team and safety plan was developed. Please adhere to the safety plan. Please follow-up with the guidance Center outpatient. He is also follow-up with your case aide as needed. Ensure that you are drinking plenty of fluid, eating meals and taking her medications as directed. Return to the emergency department if you develop suicidal or homicidal ideation or auditory hallucinations, chest pain, shortness of breath, intractable nausea or vomiting, high fevers refractory to treatment, severe weakness. Attending Signature Attending Signature I have reviewed the PA/BRICK CARRIER's note and plan of care. I was available for consultation as needed during the patient's visit in the emergency department. I agree with the clinical impression, plan, and disposition. (NAZARIO SEO DO) OLIVIA PAYNE APRN Jul 21, 2021 15:05 NAZARIO SEO DO Jul 22, 2021 01:25
[2021-07-21 15:11] LABS: BARBITURATES NEG (NEG); BENZODIAZEPINES NEG (NEG); CANNABINOIDS NEG (NEG); COCAINE NEG (NEG); METHADONE NEG (NEG); OPIATES NEG (NEG); PHENCYCLIDINE NEG (NEG)
[2021-07-21 15:13] LABS: AMPHETAMINE/METHAMPHETAMINE NEG (NEG)
[2021-07-21 15:24] LABS: AMORPHOUS SEDIMENT,UR PRESENT /HPF; BACTERIA,URINE 0 /HPF (0-FEW); BILIRUBIN,URINE NEG (NEG); CLARITY,URINE CLOUDY; COLOR,URINE YELLOW; GLUCOSE,URINE 100 mg/dL (NEG); NITRITE,URINE NEG (NEG); RBC,URINE 0 /HPF (0-2); SQUAMOUS EPITHELIAL CELL,UR OCC /LPF; WBC,URINE 0 /HPF (0-4)
[2021-07-21 16:37] LABS: CALCIUM 8.3 mg/dL (8.5-10.1); GFR 77.9; POTASSIUM 4.8 mmol/L (3.5-5.1)
[2021-07-21 16:43] LABS: ALBUMIN 3.4 g/dL (3.4-5.0); ALBUMIN/GLOBULIN RATIO 0.9 (1.0-1.7); TOTAL BILIRUBIN 0.5 mg/dL (0.2-1.0); TOTAL PROTEIN 7.3 g/dL (6.4-8.2)
[2021-07-21 16:48] LABS: BASO # 0.1 x10^3/uL (0.0-0.2); BASO % 1 % (0-3); EOS # 0.2 x10^3/uL (0.0-0.7); EOS % 3 % (0-3); HEMATOCRIT 35.5 % (39.0-53.0); HEMOGLOBIN 9.5 g/dL (13.0-17.5); LYMPH # 1.6 x10^3/uL (1.0-4.8); LYMPH % 19 % (24-48); MEAN CORPUSCULAR HEMOGLOBIN 17 pg (25-35); MEAN CORPUSCULAR HGB CONC 27 g/dL (31-37); MEAN CORPUSCULAR VOLUME 64 fL (79-100); MONO # 0.5 x10^3/uL (0.0-1.1); MONO % 6 % (0-9); NEUT # 5.9 x10^3uL (1.8-7.7); NEUT % 71 % (31-73); PLATELET COUNT 734 x10^3/uL (140-400); RED BLOOD COUNT 5.57 x10^6/uL (4.30-5.70); RED CELL DISTRIBUTION WIDTH 23.4 % (11.5-14.5); WHITE BLOOD COUNT 8.4 x10^3/uL (4.0-11.0)
[2021-07-21 17:00] LABS: INFLUENZA A PATIENT NEGATIVE (NEGATIVE); INFLUENZA B PATIENT NEGATIVE (NEGATIVE)
[2021-07-21 17:26] VITALS: BP 127/71
[2021-07-21 17:28] LABS: % EOS 2 % (0-5); % LYMPHS 12 % (24-48); % MONOS 6 % (0-10); % SEGS 80 % (35-66); PLT ESTIMATE INCREASED (ADEQUATE); POIKILOCYTOSIS MARKED
[2021-07-21 17:29] LABS: HYPOCHROMIA SLIGHT; OVALOCYTES MOD; SCHISTOCYTES OCC
[2021-07-21 17:30] LABS: ANISOCYTOSIS MARKED; MICROCYTOSIS MOD
== END 2021-07-21 17:27 | disposition home or self-care (01) ==
LOC: ER 14:31
DX: U07.1 COVID-19 (principal); R44.0 Auditory hallucinations; F20.9 Schizophrenia, unspecified
CPT/HCPCS: 36415; 80053; 80307; 81001; 85007; 85025; 87428; 99283; C9803; G0480; U0003

== ENCOUNTER 2021-07-29 12:30 | Emergency (ER) | payer OTHER ==
[~2021-07-29] VITALS: Ht 180.3 cm; Wt 63.7 kg
[2021-07-29 12:35] VITALS: BP 72/71
[2021-07-29] MEDS ORDERED: ONDANSETRON ODT 4 MG TAB.RAPDIS PO ONE (12:45)
[2021-07-29] MEDS ORDERED: ONDANSETRON PF 4 MG/2 ML VIAL. IVP ONE (12:45)
[2021-07-29] MEDS ORDERED: IV NORMAL SALINE 1,000ML 1,000 ML IV ONE (12:45)
--- NOTE | 2021-07-29 12:57 | PHYS DOC ---
Past History Past Medical History: Schizophrenia Additional Past Medical Histor: Raynauds;Vakyy-Otofg-Dyfyl Past Surgical History: Tonsillectomy, Other Additional Past Surgical Histo: duodenal surgery; hernia repair Smoking: Non-smoker Alcohol Use: None Drug Use: None General Adult EDM: Chief Complaint: NAUSEA/VOMITING/DIARRHEA HPI: HPI: 56-year-old male well-known to the emergency room presents with nausea and generally ill feeling. Patient states he has a "bad cold" and that he is just not feeling great. He has had some nausea. He has also had some chills but not sure about a fever. He denies any shortness of breath, cough, or chest pain. Review of Systems: Review of Systems: Constitutional: Chills Eyes: Denies change in visual acuity HENT: Nasal congestion Respiratory: Denies cough or shortness of breath Cardiovascular: Denies chest pain or edema GI: Nausea. Denies abdominal pain, vomiting, bloody stools or diarrhea : Denies dysuria Musculoskeletal: Denies back pain or joint pain Integument: Denies rash Neurologic: Denies headache, focal weakness or sensory changes Endocrine: Denies polyuria or polydipsia Lymphatic: Denies swollen glands Psychiatric: Denies depression or anxiety Current Medications: Current Meds: Current Medications Medications (Trade) Dose Ordered Sig/[facility] Start Time Stop Time Status Last Admin Dose Admin Ondansetron HCl (Zofran Odt) 4 mg 1X ONCE 07/29/21 12:45 07/29/21 12:50 DC Ondansetron HCl (Zofran) 4 mg 1X ONCE 07/29/21 12:45 07/29/21 12:44 DC Sodium Chloride 1,000 ml @ 1,000 mls/hr 1X ONCE 07/29/21 12:45 07/29/21 12:44 DC Allergies: Allergies: Allergies Coded Allergies Type Severity Reaction Last Updated Verified aspirin Adverse Reaction Intermediate bleeding 07/21/21 Yes Physical Exam: PE: Constitutional: Well developed, well nourished, no acute distress, non-toxic appearance. [] HENT: Normocephalic, atraumatic, bilateral external ears normal, oropharynx moist, no oral exudates, nose normal. [] Eyes: PERRLA, EOMI, conjunctiva normal, no discharge. [] Neck: Normal range of motion, no tenderness, supple, no stridor. [] Cardiovascular: Heart rate regular rhythm, no murmur [] Lungs & Thorax: Bilateral breath sounds clear to auscultation [] Abdomen: Bowel sounds normal, soft, no tenderness, no masses, no pulsatile masses. [] Skin: Warm, dry, no erythema, no rash. [] Back: No tenderness, no CVA tenderness. [] Extremities: No tenderness, no cyanosis, no clubbing, ROM intact, no edema. [] Neurologic: Alert and oriented X 3, normal motor function, normal sensory function, no focal deficits noted. [] Psychologic: Affect normal, judgement normal, mood normal. [] Current Patient Data: Vital Signs: Vital Signs Date Time Temp Pulse Resp B/P (MAP) Pulse Ox O2 Delivery O2 Flow Rate FiO2 07/29/21 12:35 97.5 92 18 72/71 (71) 100 Room Air EKG: EKG: [] Radiology/Procedures: Radiology/Procedures: [] Heart Score: C/O Chest Pain: N/A Risk Factors: Risk Factors: DM, Current or recent (<one month) smoker, HTN, HLP, family history of CAD, obesity. Risk Scores: Score 0 - 3: 2.5% MACE over next 6 weeks - Discharge Home Score 4 - 6: 20.3% MACE over next 6 weeks - Admit for Clinical Observation Score 7 - 10: 72.7% MACE over next 6 weeks - Early Invasive Strategies Course & Med Decision Making: Course & Med Decision Making Pertinent Labs and Imaging studies reviewed. (See chart for details) The patient was given Zofran ODT and a p.o. challenge. He was able to keep down liquids and solids. He has no other complaints. He is stable for discharge at this time. [] Dragon Disclaimer: Dragon Disclaimer: This electronic medical record was generated, in whole or in part, using a voice recognition dictation system. Departure Departure: Impression: Primary Impression: Nausea Disposition: 01 HOME / SELF CARE / HOMELESS Condition: STABLE Referrals: CRISS POWER MD (PCP) Patient Instructions: Nausea, Adult, Jjaf-bt-Juyi DONTAE MCLEAN DO Jul 29, 2021 12:57
== END 2021-07-29 14:25 | disposition home or self-care (01) ==
LOC: ER 12:30
DX: R11.0 Nausea (principal); R09.81 Nasal congestion
CPT/HCPCS: 99283; Q0162

== ENCOUNTER 2021-09-12 16:48 | Emergency (ER) | payer OTHER ==
[~2021-09-12] VITALS: Ht 180.3 cm; Wt 63.7 kg
[~2021-09-12 16:48] MED LIST changes: -ARIP441S IM; +[UNRECOGNIZED DRUG - CODE] IM
[2021-09-12 17:02] VITALS: BP 140/72
--- NOTE | 2021-09-12 19:37 | PHYS DOC ---
Past History Past Medical History: Schizophrenia Additional Past Medical Histor: Raynauds;Gadog-Ojnxc-Oppdr (NIRMAL BRAGA APRN) Past Surgical History: Tonsillectomy, Other Additional Past Surgical Histo: duodenal surgery; hernia repair (NIRMAL BRAGA APRN) Smoking: Non-smoker Alcohol Use: None Drug Use: None (NIRMAL BRAGA APRN) General Adult EDM: Chief Complaint: SKIN RASH/ABSCESS HPI: HPI: Patient is a 56-year-old male presents with complaints of a mole on the top of his right ear. Denying ear pain or trauma to the area. Patient is also reporting chest pain that started this morning.. Denies nausea/vomiting, shortness of breath. Patient reports pain is in the middle of his chest and does not radiate. Patient denies take anything for discomfort. Patient has a history of schizophrenia. (NIRMAL BRAGA APRN) Review of Systems: Review of Systems: ROS At least 10 ROS systems have been reviewed and are negative except as documented in the HPI. General: Negative except as outlined in HPI above. Skin: Negative except as outlined in HPI above. HEENT: Negative except as outlined in HPI above. Neck: Negative except as outlined in HPI above. Respiratory: Negative except as outlined in HPI above.. Cardiovascular: Negative except as outlined in HPI above. Abdomen: Negative except as outlined in HPI above. : Negative except as outlined in HPI above. Back/MSK: Negative except as outlined in HPI above. Neuro: Negative except as outlined in HPI above. Psych: Negative except as outlined in HPI above. (NIRMAL BRAGA APRN) Allergies: Allergies: Allergies Coded Allergies Type Severity Reaction Last Updated Verified aspirin Adverse Reaction Intermediate bleeding 07/21/21 Yes (NIRMAL BRAGA APRN) Physical Exam: PE: Constitutional: Well developed, well nourished, no acute distress, non-toxic appearance. [] HENT: Normocephalic, atraumatic, bilateral external ears normal, oropharynx moist, no oral exudates, nose normal. [] Eyes: PERRLA, EOMI, conjunctiva normal, no discharge. [] Neck: Normal range of motion, no tenderness, supple, no stridor. [] Cardiovascular:Heart rate regular rhythm, no murmur [] Lungs & Thorax: Bilateral breath sounds clear to auscultation [] Abdomen: Bowel sounds normal, soft, no tenderness, no masses, no pulsatile masses. [] Skin: Mole to the top of right ear, color is even, symmetrical shape, even borders Back: No tenderness, no CVA tenderness. [] Extremities: No tenderness, no cyanosis, no clubbing, ROM intact, no edema. [] Neurologic: Alert and oriented X 3, normal motor function, normal sensory function, no focal deficits noted. [] Psychologic: Affect normal, judgement normal, mood normal. [] (NIRMAL BRAGA APRN) Current Patient Data: Labs: Laboratory Tests Test 09/12/21 18:05 Troponin I High Sensitivity 8 ng/L (4-75) Vital Signs: Vital Signs Date Time Temp Pulse Resp B/P (MAP) Pulse Ox O2 Delivery O2 Flow Rate FiO2 09/12/21 17:02 97.4 101 16 140/72 (94) 99 Room Air (NIRMAL BRAGA APRN) EKG: EKG: [] (NIRMAL BRAGA APRN) Radiology/Procedures: Radiology/Procedures: [] (NIRMAL BRAGA APRN) Heart Score: C/O Chest Pain: No Risk Factors: Risk Factors: DM, Current or recent (<one month) smoker, HTN, HLP, family history of CAD, obesity. Risk Scores: Score 0 - 3: 2.5% MACE over next 6 weeks - Discharge Home Score 4 - 6: 20.3% MACE over next 6 weeks - Admit for Clinical Observation Score 7 - 10: 72.7% MACE over next 6 weeks - Early Invasive Strategies (NIRMAL BRAGA APRN) Course & Med Decision Making: Course & Med Decision Making Pertinent Labs and Imaging studies reviewed. (See chart for details) [] 56-year-old male presents with complaints of a fall on the top of his right ear and chest pain. Patient states that chest pain started early this morning. EKG showed normal sinus rhythm. Troponin was unremarkable. Discussed results with patient. On assessment, mole is symmetrical, color is even throughout, no irregular borders. Advised patient he would need to call dermatology and set up an appointment to have the mole possibly removed and sent for biopsy. Discussed return precautions. Patient hemodynamically stable upon disposition. No complaints of chest pain at this time. (NIRMAL BRAGA APRN) Course & Med Decision Making Did not see or evaluate patient. Did not discuss patient with MEDICAL DIRECTOR OCCUPATIONAL HEALTH. Generally agree with MEDICAL DIRECTOR OCCUPATIONAL HEALTH's work-up and disposition per note (BENJIE MAN MD) Eliazar Disclaimer: Eliazar Disclaimer: This electronic medical record was generated, in whole or in part, using a voice recognition dictation system. (MARIA LUZNIRMALCHARISSA ARELLANO) Departure Departure: Impression: Primary Impression: Normal mole of skin Additional Impression: Chest pain Qualified Codes: R07.9 - Chest pain, unspecified Disposition: HOME / SELF CARE / HOMELESS Condition: STABLE Referrals: CRISS POWER MD (PCP) Patient Instructions: Mole-Brief Additional Instructions: Emergency room for a mole on the top of your ear. You need to follow-up with dermatology to have it biopsied. All of your labs were unremarkable. Return emergency room if you have worsening symptoms or concerns such as increase in chest pain, shortness of breath. Otherwise follow-up with PCP. EMERGENCY DEPARTMENT GENERAL DISCHARGE INSTRUCTIONS Thank you for coming to [facility] (ED) today and trusting us with you care. We trust that you had a positivie experience in our Emergency Department. If you wish to speak to the department management, you may call the director at [phone]. YOUR FOLLOW UP INSTRUCTIONS ARE FOLLOWS: 1. Do you have a private Doctor? If you do not have a private doctor, please ask for a resource list of physicians or clinics that may be able to assist you with follow up care. 2. The Emergency Physician has interpreted your x-rays. The X-Ray specialist will also review them. If there is a change in the findings, you will be notified in 48 hours when at all possible. 3. A lab test or culture has been done, your results will be reviewed and you will be notified if you need a change in treatment. ADDITIONAL INSTRUCTIONS AND INFORMATION: 1. Your care today has been supervised by a physician who is specially trained in emergency care. Many problems require more than one evaluation for a complete diagnosis and treatment. We recommend that you schedule your follow up appointment as recommended to ensure complete treatment of you illness or injury. If you are unable to obtain follow up care and continue to have a problem, or if your condition worsens, we recommend that you return to the ED. 2. We are not able to safely determine your condition over the phone nor are we able to give sound medical advice over the phone. For these safety reasons, if you call for medical advice we will ask you to come to the ED for further evaluation. 3. If you have any questions regarding these discharge instructions please call the ED at [phone]. SAFETY INFORMATION: In the interest of safety, wellness, and injury prevention; we encourage you to wear your sealbelt, if you smoke; quite smoking, and we encourage family to use a protective helmet for bicycling and other sporting events that present an increased risk for head injury. IF YOUR SYMPTOMS WORSEN OR NEW SYMPTOMS DEVELOP, OR YOU HAVE CONCERNS ABOUT YOUR CONDITION; OR IF YOUR CONDITION WORSENS WHILE YOU ARE WAITING FOR YOUR FOLLOW UP APPOINTMENT; EITHER CONTACT YOUR PRIMARY CARE DOCTOR, THE PHYSICIAN WHOSE NAME AND NUMBER YOU WERE GIVEN, OR RETURN TO THE ED IMMEDIATELY. NIRMAL BRAGA APRN Sep 12, 2021 19:37 BENJIE MAN MD Sep 12, 2021 22:47
--- NOTE | 2021-09-12 21:58 | EKG ---
[address] [address] Test Date: 2021-09-12 Test Time: 17:04:01 Pat Name: BOLIVAR JEFF Department: Room: Gender: [employer] Contractor: POLLY : 1965 Requested By: NIRMAL BRAGA Order Number: [id number] Reading MD: Pito Dowell Measurements Intervals [place] Rate: 92 P: 39 WV: 142 QRS: 46 QRSD: 76 T: 56 QT: 318 QTc: 398 Interpretive Statements SINUS RHYTHM NORMAL ECG Electronically Signed On 09-13-2021 8:26:06 CHANGE CONSULTANT by Pito Dowlel
== END 2021-09-12 19:58 | disposition home or self-care (01) ==
LOC: ER 16:48
DX: D22.21 Melanocytic nevi of right ear and external auricular canal (principal); R07.89 Other chest pain; F20.9 Schizophrenia, unspecified; Z88.6 Allergy status to analgesic agent
CPT/HCPCS: 36415; 84484; 93005; 99284

== ENCOUNTER 2021-09-18 19:46 | Emergency (ER) | payer OTHER ==
[~2021-09-18] VITALS: Ht 180.3 cm; Wt 67.0 kg
[2021-09-18 19:52] VITALS: BP 106/56
--- NOTE | 2021-09-18 20:05 | PHYS DOC ---
Past History Past Medical History: Schizophrenia Additional Past Medical Histor: Raynauds;Eoqsz-Rxokw-Bylzv Past Surgical History: Tonsillectomy, Other Additional Past Surgical Histo: duodenal surgery; hernia repair Smoking: Non-smoker Alcohol Use: None Drug Use: None Adult General Chief Complaint Chief Complaint: BLOODY STOOL HPI HPI Patient is a 56-year-old homeless male, a frequent visitor to the emergency department who presents initially with a chief complaint of blood in the stool. Upon interview, patient stated that he did not really have blood in the stool, he is homeless and lives behind [employer] [facility] and just wanted something to eat. Denies any recent travels, traumas, illness, fevers, chest pain, shortness of breath, abdominal pain, nausea, vomiting, diarrhea, dysuria, hematuria or blood in the stool. Denies any alcohol or drug use. Otherwise asymptomatic. Review of Systems Review of Systems Review of systems otherwise unremarkable except noted in HPI Allergies Allergies Allergies Coded Allergies Type Severity Reaction Last Updated Verified aspirin Adverse Reaction Intermediate bleeding 09/18/21 Yes Physical Exam Physical Exam Constitutional: Well developed, well nourished, no acute distress, non-toxic appearance. [] HENT: Normocephalic, atraumatic, oropharynx moist, Eyes: PERRLA, EOMI, conjunctiva normal, no discharge. [] Neck: Normal range of motion, no tenderness, supple, no stridor. [] Cardiovascular:Heart rate regular rhythm, no murmur [] Lungs & Thorax: No respiratory distress Abdomen: soft, no tenderness, no masses, no pulsatile masses. [] Skin: Warm, dry, no erythema, no rash. [] Extremities: No tenderness, no cyanosis, no clubbing, ROM intact, no edema. [] Neurologic: Alert and oriented X 3, normal motor function, normal sensory function, able to sit, stand and walk without issue no focal deficits noted. [] Psychologic: Affect normal, judgement normal, mood normal. [] Current Patient Data Vital Signs Vital Signs Date Time Temp Pulse Resp B/P (MAP) Pulse Ox O2 Delivery O2 Flow Rate FiO2 09/18/21 19:52 98.1 81 16 106/56 (73) 98 EKG EKG [] Radiology/Procedures Radiology/Procedures [] Heart Score C/O Chest Pain: No Risk Factors: Risk Factors: DM, Current or recent (<one month) smoker, HTN, HLP, family history of CAD, obesity. Risk Scores: Risk Factors: DM, Current or recent (<one month) smoker, HTN, HLP, family history of CAD, obesity. Course & Med Decision Making Course & Med Decision Making Patient is a 56-year-old homeless man who presents to the emergency department stating that he had blood in his stool, but actually admitted that he is just h ere to get some to eat as he is homeless Vital signs nonconcerning. Physical exam noted above. Denied need for pain or nausea medicine. Given something to eat and drink here in the emergency department which he tolerated well. Given some to go nutrition. Offered to call the [employer] and get him a cab ride [place] so he has a place to stay tonight, but stated he did not like the mission and would prefer just to go back to work and sleep behind the [employer] Given contact information and local resources for free clinics, admissions, and food assistance. Advised to follow-up with your primary care physician as soon as you can. Gave return precautions to the ED. Patient grateful, verbalized understanding and agreed with plan of discharge. Dragon Disclaimer Dragon Disclaimer This electronic medical record was generated, in whole or in part, using a voice recognition dictation system. Departure Departure: Impression: Primary Impression: Homeless single person Disposition: 01 HOME / SELF CARE / HOMELESS Condition: STABLE Referrals: CRISS POWER MD (PCP) Additional Instructions: Thank you for coming into the emergency department tonight and allowing us to take care of you. Please read the attached information carefully to go over things we discussed. Please use the community resource packet that we gave you to find local free clinics and assistance with housing and food. We offered to call the [employer] and get you a cab ride over there so you have a place to sleep but you stated you did not like it, prefer to go behind the [employer]. He stated that all he wanted was something to eat. Please come back with new or concerning symptoms as we discussed. BENJIE MAN MD Sep 18, 2021 20:05
== END 2021-09-18 20:27 | disposition home or self-care (01) ==
LOC: ER 19:46
DX: K92.1 Melena (principal); Z59.00 Homelessness unspecified; F20.9 Schizophrenia, unspecified; Z88.6 Allergy status to analgesic agent
CPT/HCPCS: 99281

== ENCOUNTER 2021-09-24 18:13 | Observation (INO) | payer OTHER ==
[~2021-09-24] VITALS: Ht 180.3 cm; Wt 67.2 kg
--- NOTE | 2021-09-24 18:38 | PHYS DOC ---
Past History Past Medical History: Schizophrenia Additional Past Medical Histor: Raynauds;Nbuif-Acbpv-Tbvsy (OLIVIA PAYNE APRN) Past Surgical History: Tonsillectomy, Other Additional Past Surgical Histo: duodenal surgery; hernia repair (OLIVIA PAYNE APRN) Smoking: Non-smoker Alcohol Use: None Drug Use: None (OLIVIA PAYNE APRN) General Adult EDM: Chief Complaint: WEAKNESS/GENERALIZED HPI: HPI: Patient is a 56-year-old male known to this facility who presents to the emerge ncy department with a complaint of generalized weakness started yesterday. Patient denies headache, nausea, vomiting, diarrhea, pain, sick exposures, shortness of breath, fevers. He is reporting an intermittent dry cough. (OLIVIA PAYNE APRN) Review of Systems: Review of Systems: Constitutional: See HPI Respiratory: See HPI Cardiovascular: See HPI GI: See HPI Neuro: See HPI (OLIVIA PAYNE APRN) Allergies: Allergies: Allergies Coded Allergies Type Severity Reaction Last Updated Verified aspirin Adverse Reaction Intermediate bleeding 09/18/21 Yes (OLIVIA PAYNE APRN) Physical Exam: PE: Constitutional: Well developed, well nourished, no acute distress, non-toxic appearance. [] HENT: Normocephalic, atraumatic, bilateral external ears normal, oropharynx moist, no oral exudates, nose normal. [] Eyes: PERRL, EOMI, conjunctiva normal, no discharge. [] Neck: Normal range of motion, no stridor Cardiovascular:Heart rate regular rhythm, no murmur [] Lungs & Thorax: Bilateral breath sounds clear to auscultation [] Abdomen: Bowel sounds normal, soft, no tenderness, no masses, no pulsatile masses. [] Skin: Warm, dry, no erythema, no rash. [] Back: Normal range of motion Extremities: No tenderness, no cyanosis, no clubbing, ROM intact, no edema. [] Neurologic: Alert and oriented X 3, normal motor function, normal sensory function, no focal deficits noted. [] Psychologic: Affect normal, judgement normal, mood normal. [] (OLIVIA PAYNE APRN) Current Patient Data: Labs: Laboratory Tests Test 09/24/21 19:30 White Blood Count 6.7 x10^3/uL Red Blood Count 4.30 x10^6/uL Hemoglobin 6.7 g/dL Hematocrit 24.4 % Mean Corpuscular Volume 57 fL Mean Corpuscular Hemoglobin 16 pg Mean Corpuscular Hemoglobin Concent 28 g/dL Red Cell Distribution Width 21.2 % Platelet Count 515 x10^3/uL Neutrophils (%) (Auto) 71 % Lymphocytes (%) (Auto) 19 % Monocytes (%) (Auto) 6 % Eosinophils (%) (Auto) 4 % Basophils (%) (Auto) 1 % Neutrophils # (Auto) 4.8 x10^3uL Lymphocytes # (Auto) 1.3 x10^3/uL Monocytes # (Auto) 0.4 x10^3/uL Eosinophils # (Auto) 0.2 x10^3/uL Basophils # (Auto) 0.0 x10^3/uL Platelet Estimate Pending Sodium Level 141 mmol/L Potassium Level 4.0 mmol/L Chloride Level 105 mmol/L Carbon Dioxide Level 26 mmol/L Anion Gap 10 Blood Urea Nitrogen 22 mg/dL Creatinine 0.9 mg/dL Estimated GFR (Cockcroft-Gault) 87.9 Glucose Level 113 mg/dL Calcium Level 8.6 mg/dL Troponin I High Sensitivity 8 ng/L Vital Signs: Vital Signs Date Time Temp Pulse Resp B/P (MAP) Pulse Ox O2 Delivery O2 Flow Rate FiO2 09/24/21 18:15 97.7 80 16 122/61 (81) 98 (OLIVIA PAYNE APRN) EKG: EKG: [] (OLIVIA PAYNE APRN) Radiology/Procedures: Radiology/Procedures: []PROCEDURE: PORTABLE CHEST 1V XR CHEST 1V Clinical History: Reason: COUGH, WEAKNESS / Spl. Instructions: / History: Technique: AP view of the chest was obtained at 09/24/2021 6:45 PM. Comparison: May 06, 2021. Findings: The cardiomediastinal silhouette is normal. The pulmonary vasculature is normal. The lungs and pleural margins are clear. Impression: No evidence of an acute cardiopulmonary process. Electronically signed by: Letitia Gonzalez III, MD (09/24/2021 7:11 PM) [facility] DICTATED AND SIGNED BY: LETITIA GONZALEZ III, MD DATE: 09/24/211909 CC: OLIVIA PAYNE APRN; CRISS POWER MD ~ (OLIVIA PAYNE APRN) Heart Score: C/O Chest Pain: N/A Risk Factors: Risk Factors: DM, Current or recent (<one month) smoker, HTN, HLP, family history of CAD, obesity. Risk Scores: Score 0 - 3: 2.5% MACE over next 6 weeks - Discharge Home Score 4 - 6: 20.3% MACE over next 6 weeks - Admit for Clinical Observation Score 7 - 10: 72.7% MACE over next 6 weeks - Early Invasive Strategies (OLIVIA PAYNE APRN) Course & Med Decision Making: Course & Med Decision Making Pertinent Labs and Imaging studies reviewed. (See chart for details) [] Presents to this emergency department for generalized weakness that started yesterday. Patient is homeless and well-known to this facility. Work-up in the ER consisted of blood work, EKG, chest x-ray due to reporting weakness and cough, urinalysis. His x-ray shows no acute findings. Patient's hemoglobin was 6.7, hematocrit 24.4. 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 Patient denies any black tarry stools or rectal bleeding. Unremarkable BMP, no elevation in troponin. Patient will need to have a blood transfusion as he has a hemoglobin of 6.7 and is weak. I discussed these findings with Dr. Mcdaniels who agreed to that the patient under his services for anemia. Blood transfusion protocol ordered. Bridge orders placed at this time 2028. I discussed these findings with patient as well as care plan he is applicable to this plan. (OLIVIA PAYNE APRN) Dragon Disclaimer: Dragon Disclaimer: This electronic medical record was generated, in whole or in part, using a voice recognition dictation system. (OLIVIA PAYNE APRN) Departure Departure: Impression: Primary Impression: Iron deficiency anemia Qualified Codes: D50.9 - Iron deficiency anemia, unspecified Disposition: ADMITTED INPATIENT Admitting Physician: Manolo Mcdaniels (OLIVIA PAYNE APRN) Condition: STABLE Referrals: CRISS POWER MD (PCP) Scripts No Active Prescriptions or Reported Meds Dragon Disclaimer This chart was dictated in whole or in part using Voice Recognition software in a busy, high-work load, and often noisy Emergency Department environment. It may contain unintended and wholly unrecognized errors or omissions. (KENDELL STEWART MD) Attending Signature Attending Signature I have participated in the care of this patient and I have reviewed and agree with all pertinent clinical information above including history, exam, and recommendations. (KENDELL STEWART MD) OLIVIA PAYNE APRN Sep 24, 2021 18:38 KENDELL STEWART MD Sep 27, 2021 23:02
--- NOTE | 2021-09-24 19:13 | RAD ---
XR CHEST 1V Clinical History: Reason: COUGH, WEAKNESS / Spl. Instructions: / History: Technique: AP view of the chest was obtained at 09/24/2021 6:45 PM. Comparison: May 06, 2021. Findings: The cardiomediastinal silhouette is normal. The pulmonary vasculature is normal. The lungs and pleura l margins are clear. Impression: No evidence of an acute cardiopulmonary process. Electronically signed by: Hardeep Sin III, MD (09/24/2021 7:11 PM) [facility]
--- NOTE | 2021-09-24 19:33 | EKG ---
[address] [address] Test Date: 2021-09-24 Test Time: 19:13:40 Pat Name: BOLIVAR JEFF Department: Room: Gender: M Steam Gigger: : 1965 Requested By: OLIVIA PAYNE Order Number: [id number] Reading MD: Fredrick Comer MD Measurements Intervals [place] Rate: 84 P: 38 [place]: 140 QRS: 40 QRSD: 84 T: 53 QT: 336 QTc: 400 Interpretive Statements SINUS RHYTHM Electronically Signed On 10-02-2021 7:26:30 CDT by Fredrick Comer MD
[2021-09-24 19:53] LABS: BASO % 1 % (0-3); EOS # 0.2 x10^3/uL (0.0-0.7); EOS % 4 % (0-3); HEMATOCRIT 24.4 % (39.0-53.0); LYMPH # 1.3 x10^3/uL (1.0-4.8); LYMPH % 19 % (24-48); MEAN CORPUSCULAR HEMOGLOBIN 16 pg (25-35); MEAN CORPUSCULAR HGB CONC 28 g/dL (31-37); MEAN CORPUSCULAR VOLUME 57 fL (79-100); MONO # 0.4 x10^3/uL (0.0-1.1); MONO % 6 % (0-9); NEUT # 4.8 x10^3uL (1.8-7.7); NEUT % 71 % (31-73); PLATELET COUNT 515 x10^3/uL (140-400); RED CELL DISTRIBUTION WIDTH 21.2 % (11.5-14.5); WHITE BLOOD COUNT 6.7 x10^3/uL (4.0-11.0)
[2021-09-24 19:57] LABS: CALCIUM 8.6 mg/dL (8.5-10.1); CREATININE 0.9 mg/dL (0.7-1.3); GFR 87.9
[2021-09-24 20:03] LABS: HEMOGLOBIN 6.7 g/dL (13.0-17.5)
[2021-09-24 20:47] LABS: % BASOS 2 % (0-3); % EOS 4 % (0-5); % LYMPHS 9 % (24-48); % MONOS 3 % (0-10); % SEGS 82 % (35-66); ANISOCYTOSIS MOD; HYPOCHROMIA MARKED; MICROCYTOSIS MOD; PLT ESTIMATE INCREASED (ADEQUATE)
[2021-09-24] MEDS: IV NORMAL SALINE 1,000ML 1,000 ML IV SCH (20:52)
[2021-09-24 21:21] LABS: BACTERIA,URINE 0 /HPF (0-FEW); CLARITY,URINE CLEAR; COLOR,URINE YELLOW; GLUCOSE,URINE 250 mg/dL (NEG); NITRITE,URINE NEG (NEG); SQUAMOUS EPITHELIAL CELL,UR OCC /LPF; UROBILINOGEN,URINE 0.2 mg/dL (0.2 mg/dL); WBC,URINE 0 /HPF (0-4)
--- NOTE | 2021-09-24 22:00 | NUR ---
The patient, BOLIVAR JEFF, 56 y/o, M admitted by JAMIE MARI MD, was given written information regarding hospital policies, unit procedures and contact persons. Valuables were checked and vitals obtained. Pt is admitted with anemia. He is A&OX4 on room air able to ambulated with stand by assist. Pt is currently resting in bed. Will continue to monitor.
[2021-09-24 22:42] VITALS: BP 116/70
[2021-09-24 23:04] VITALS: BP 119/68
[2021-09-24 23:13] VITALS: BP 119/68
[2021-09-24 23:37] VITALS: BP 120/67
[2021-09-25 00:37] VITALS: BP 117/67
[2021-09-25 01:26] VITALS: BP 112/75
--- NOTE | 2021-09-25 01:54 | NUR ---
BLOOD TRANSFUSION STARTED AT 2313 TUBING PRIMED WITH NS AT 999 ML/HR. PT MONITORED CLOSELY X15 MINUTES. NO REACTION NOTED. TRANSFUSION INCREASED TO 100ML/HR AND 180ML/HR
[2021-09-25 02:26] VITALS: BP 109/65
[2021-09-25 06:14] LABS: BASO # 0.1 x10^3/uL (0.0-0.2); BASO % 2 % (0-3); EOS # 0.2 x10^3/uL (0.0-0.7); EOS % 4 % (0-3); HEMATOCRIT 27.2 % (39.0-53.0); HEMOGLOBIN 7.6 g/dL (13.0-17.5); LYMPH # 1.1 x10^3/uL (1.0-4.8); LYMPH % 16 % (24-48); MEAN CORPUSCULAR HEMOGLOBIN 17 pg (25-35); MEAN CORPUSCULAR HGB CONC 28 g/dL (31-37); MEAN CORPUSCULAR VOLUME 60 fL (79-100); MONO # 0.4 x10^3/uL (0.0-1.1); MONO % 6 % (0-9); NEUT # 4.8 x10^3uL (1.8-7.7); NEUT % 72 % (31-73); PLATELET COUNT 456 x10^3/uL (140-400); RED CELL DISTRIBUTION WIDTH 23.6 % (11.5-14.5); WHITE BLOOD COUNT 6.6 x10^3/uL (4.0-11.0)
[2021-09-25] MEDS: IV NORMAL SALINE 1,000ML 1,000 ML IV SCH (06:24)
[2021-09-25 06:33] VITALS: BP 101/60
--- NOTE | 2021-09-25 09:11 | HP ---
DATE OF SERVICE: 09/25/2021 ADMIT DATE: 09/24/2021 ATTENDING PHYSICIAN: Dr. Mcdaniels. CHIEF COMPLAINT: Weakness. HISTORY OF PRESENT ILLNESS: The patient is 56 years old. He has underlying schizophrenia. He is noncompliant with his meds. He has been wandering around the town, living at various places. He does have [place] [employer]. He complained of weakness. He has a longstanding history of chronic anemia. His hemoglobin was 6.7 mg/dL. He was admitted for observation and transfusion of 1 unit of packed red blood cells for symptomatic anemia. PAST MEDICAL HISTORY: Significant for schizoaffective disorder, Utsfw-Zwjkt-Xhvmk (hereditary hemorrhagic telangiectasia). In addition, he has had Raynaud's syndrome. He has had duodenal surgery and hernia repair, exact details are sketchy. He is a poor historian. CURRENT MEDICATIONS: None. He is not taking any antipsychotic medication. He does not follow up with his primary care physician. Much of the care is obtained through the ED. He has multiple visits through the Emergency Department. SOCIAL HISTORY: He stated he is a nondrinker and nonsmoker. FAMILY HISTORY: Unobtainable. REVIEW OF SYSTEMS: Unobtainable. PHYSICAL EXAMINATION: GENERAL: When I saw him, this is confused, lethargic gentleman, who appears older than stated age. VITAL SIGNS: Initial vital signs showed blood pressure 120/60, pulse was 89 and regular. He was afebrile, oxygen saturation 97% on room air. HEENT: Head is without trauma. Pupils are reactive. Sclerae nonicteric. Oropharynx is clear. NECK: Supple. LUNGS: Clear. CARDIOVASCULAR: Showed regular heart tones. ABDOMEN: Soft. EXTREMITIES: Without edema. NEUROLOGIC: Focally intact. Speech is fluent. He is ambulatory. SKIN: Pale. PERTINENT LABORATORY STUDIES: Admission hemoglobin 6.7 g/dL with a white count of 6700. Electrolytes within normal range. Cardiac enzymes negative for ischemia. Coronavirus swab was negative. Urinalysis was clear. ASSESSMENT: 1. A 56-year-old gentleman with symptomatic anemia. 2. 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 3. Underlying schizoaffective disorder. 4. Noncompliance of meds. PLAN: 1. Observation status. 2. I have ordered 1 unit of packed red cells to be transfused to increase oxygen carrying capacity in this symptomatic patient. 3. He is not any other home meds. 4. Diet as tolerated. 5. Follow up CBC in the morning. TERRANCE DR: Rajeev TID: [id number] CC: JANNET KAHN
--- NOTE | 2021-09-25 09:38 | DS ---
DATE OF DISCHARGE: 09/25/2021 ATTENDING PHYSICIAN: Dr. Mcdaniels. FINAL DISCHARGE DIAGNOSES: 1. Symptomatic anemia, transfused. 2. History of Zdalf-Kfvbh-Hyjze syndrome (hereditary hemorrhagic telangiectasia). 3. Iron deficiency anemia. 4. Underlying schizoaffective disorder. 5. Noncompliance of meds. HISTORY AND PHYSICAL: The patient is a 56-year-old gentleman with underlying schizoaffective disorder, undifferentiated. He is noncompliant. He is not taking any antipsychotic medication. 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 He has had a duodenal resection for I suspect source of bleeding in the past. Again, this history is sketchy. He is not on any blood thinners, nor does he have black tarry stools. His hemoglobin was 6.7 grams. He was admitted then overnight for observation and transfusion of 1 unit packed red cells to increase oxygen carrying capacity in this symptomatic patient. PHYSICAL EXAMINATION: Please see the dictated note. PERTINENT LABORATORY AND X-RAY STUDIES: Followup CBC this morning showed improvement in his hemoglobin to 7.6 g/dL. Chemistry panel is unremarkable. COURSE IN THE HOSPITAL: He was admitted. He received 1 unit of blood without any complications. Vital signs were stable. He was discharged home the next day. He supposedly has Armando Walls as his PCP, but he is noncompliant. He is not on any current medications. Social structure is very sketchy. He was homeless at one time. I do not know what his home situation is. In any event, there are no new drugs. I strongly recommend he follow up with his PCP as scheduled. In any event, the patient was discharged from our hospital in stable condition with explicit drug and followup care. CHAU DR: Rajeev TID: [id number] CC: Armando Walls
--- NOTE | 2021-09-25 11:43 | NUR ---
Patient was discharged today. Discharge paperwork was reviewed with the patient with patient verbalizing understanding. It was reviewed with the patient that he was due for his injection from the [facility] with the patient verbalizing he understood and would get his injection. A cab was called for the patient to be transported home but the cab company never did show up to transport patient home even after several calls and attempts to secure and investigate when they would be here to transport patient. The patient eventually stated he would just walk home as he was tired of waiting. This RN as well as Karen Nurse Warehouse Order Puller tried to persuade the patient to stay and wait on the cab but he was insistent upon walking home. The patient was in stable condition. This RN escorted the patient to the front entry way and witnessed patient exit from the building.
== END 2021-09-25 11:30 | disposition home or self-care (01) ==
LOC: ER 18:13 → INTOOBSV 20:31 → ER HOLD 20:31 → 1 SOUTH 20:46
PROVIDERS: ADMIT Hospitalist; ATTEND Hospitalist
DX: D50.9 Iron deficiency anemia, unspecified (principal); Z20.822 Contact with and (suspected) exposure to COVID-19; I78.0 Hereditary hemorrhagic telangiectasia; F25.9 Schizoaffective disorder, unspecified; I73.00 Raynaud's syndrome without gangrene; Z91.14 Patient's other noncompliance with medication regimen; Z91.19 Patient's noncompliance with other medical treatment and regimen; Z59.00 Homelessness unspecified; Z79.899 Other long term (current) drug therapy; Z98.890 Other specified postprocedural states
CPT/HCPCS: 36415; 36430; 71045; 80048; 81001; 84484; 85007; 85025; 86850; 86900; 86901; 86920; 87426; 93005; 96360; 96361; 99285; G0378; J7030; P9016; U0003; G0379

== ENCOUNTER 2021-09-28 21:59 | Emergency (ER) | payer OTHER ==
[~2021-09-28] VITALS: Ht 180.3 cm; Wt 67.2 kg
[2021-09-28 22:12] VITALS: BP 108/51
--- NOTE | 2021-09-28 22:16 | PHYS DOC ---
Past History Past Medical History: Schizophrenia Additional Past Medical Histor: Raynauds;Djbvb-Ujvhe-Fsxwt Past Surgical History: Tonsillectomy, Other Additional Past Surgical Histo: duodenal surgery; hernia repair Smoking: Non-smoker Alcohol Use: None Drug Use: None General Adult EDM: Chief Complaint: BACK PAIN OR INJURY HPI: HPI: 56-year-old male presents with low back pain. Patient is well-known to the emergency room. He states that he has been having pain across his lower back today. He is not sure why. He denies any falls or trauma. Denies any numbness or tingling. He has not taken any medications at home for the discomfort. He has no other complaints at this time. Review of Systems: Review of Systems: Constitutional: Denies fever or chills Eyes: Denies change in visual acuity HENT: Denies nasal congestion or sore throat Respiratory: Denies cough or shortness of breath Cardiovascular: Denies chest pain or edema GI: Denies abdominal pain, nausea, vomiting, bloody stools or diarrhea : Denies dysuria Musculoskeletal: Low back pain Integument: Denies rash Neurologic: Denies headache, focal weakness or sensory changes Endocrine: Denies polyuria or polydipsia Lymphatic: Denies swollen glands Psychiatric: Denies depression or anxiety Allergies: Allergies: Allergies Coded Allergies Type Severity Reaction Last Updated Verified aspirin Adverse Reaction Intermediate bleeding 09/18/21 Yes Physical Exam: PE: Constitutional: Well developed, well nourished, no acute distress, non-toxic appearance. [] HENT: Normocephalic, atraumatic, bilateral external ears normal, oropharynx moist, no oral exudates, nose normal. [] Eyes: PERRLA, EOMI, conjunctiva normal, no discharge. [] Neck: Normal range of motion, no tenderness, supple, no stridor. [] Cardiovascular: Heart rate regular rhythm, no murmur [] Lungs & Thorax: Bilateral breath sounds clear to auscultation [] Abdomen: Bowel sounds normal, soft, no tenderness, no masses, no pulsatile masses. [] Skin: Warm, dry, no erythema, no rash. [] Back: No tenderness, no CVA tenderness. [] Extremities: No tenderness, no cyanosis, no clubbing, ROM intact, no edema. [] Neurologic: Alert and oriented X 3, normal motor function, normal sensory function, no focal deficits noted. [] Psychologic: Affect flat, judgement normal, mood normal. [] EKG: EKG: [] Radiology/Procedures: Radiology/Procedures: [] Heart Score: C/O Chest Pain: N/A Risk Factors: Risk Factors: DM, Current or recent (<one month) smoker, HTN, HLP, family history of CAD, obesity. Risk Scores: Score 0 - 3: 2.5% MACE over next 6 weeks - Discharge Home Score 4 - 6: 20.3% MACE over next 6 weeks - Admit for Clinical Observation Score 7 - 10: 72.7% MACE over next 6 weeks - Early Invasive Strategies Course & Med Decision Making: Course & Med Decision Making Pertinent Labs and Imaging studies reviewed. (See chart for details) There were no significant findings on my physical examination. Imaging is not indicated at this time. I will give him a single dose of Flexeril in emergency room. We have also provided the patient with some food and soda to drink. He is stable for discharge at this time. [] Dragon Disclaimer: Dragon Disclaimer: This electronic medical record was generated, in whole or in part, using a voice recognition dictation system. Departure Departure: Impression: Primary Impression: Low back pain Disposition: HOME / SELF CARE / HOMELESS Condition: STABLE Referrals: CRISS POWER MD (PCP) Patient Instructions: Low Back Strain with [facility] Scripts No Active Prescriptions or Reported Meds DONTAE MCLEAN DO Sep 28, 2021 22:16
[2021-09-28] MEDS ORDERED: CYCLOBENZAPRINE 10 MG TABLET. PO ONE (22:30)
== END 2021-09-28 23:05 | disposition home or self-care (01) ==
LOC: ER 21:59
DX: M54.59 Other low back pain (principal); F20.9 Schizophrenia, unspecified; Z88.6 Allergy status to analgesic agent
CPT/HCPCS: 99283

== ENCOUNTER 2021-10-04 19:12 | Emergency (ER) | payer OTHER ==
[~2021-10-04] VITALS: Ht 180.3 cm; Wt 67.2 kg
[2021-10-04 19:22] VITALS: BP 122/65
[2021-10-04 20:43] LABS: CALCIUM 8.9 mg/dL (8.5-10.1); CREATININE 0.9 mg/dL (0.7-1.3); GFR 87.9; POTASSIUM 4.4 mmol/L (3.5-5.1)
[2021-10-04 20:46] LABS: BASO # 0.1 x10^3/uL (0.0-0.2); BASO % 1 % (0-3); EOS # 0.3 x10^3/uL (0.0-0.7); EOS % 5 % (0-3); HEMATOCRIT 30.5 % (39.0-53.0); HEMOGLOBIN 8.5 g/dL (13.0-17.5); LYMPH # 1.3 x10^3/uL (1.0-4.8); LYMPH % 23 % (24-48); MEAN CORPUSCULAR HEMOGLOBIN 17 pg (25-35); MEAN CORPUSCULAR HGB CONC 28 g/dL (31-37); MEAN CORPUSCULAR VOLUME 60 fL (79-100); MONO # 0.3 x10^3/uL (0.0-1.1); MONO % 6 % (0-9); NEUT # 3.7 x10^3uL (1.8-7.7); NEUT % 65 % (31-73); PLATELET COUNT 527 x10^3/uL (140-400); RED BLOOD COUNT 5.04 x10^6/uL (4.30-5.70); WHITE BLOOD COUNT 5.7 x10^3/uL (4.0-11.0)
[2021-10-04 21:09] LABS: % EOS 7 % (0-5); % LYMPHS 29 % (24-48); % MONOS 4 % (0-10); % SEGS 60 % (35-66)
--- NOTE | 2021-10-04 21:28 | PHYS DOC ---
Past History Past Medical History: Schizophrenia Additional Past Medical Histor: Raynauds;Sbbom-Elgfl-Jotad (NIRMAL BRAGA APRN) Past Surgical History: Tonsillectomy, Other Additional Past Surgical Histo: duodenal surgery; hernia repair (NIRMAL BRAGA APRN) Smoking: Non-smoker Alcohol Use: None Drug Use: None (NIRMAL BRAGA APRN) General Adult EDM: Chief Complaint: HEMATEMESIS/VOMITING BLOOD HPI: HPI: Patient is a 56-year-old male who presents with vomiting blood. Patient states that he vomited blood a few times today. Denies chest pain, shortness of breath, dizziness. Patient is well-known to this ER. Denies fever. Denies recent illness. history of schizophrenia. (NIRMAL BRAGA APRN) Review of Systems: Review of Systems: ROS At least 10 ROS systems have been reviewed and are negative except as documented in the HPI. General: Negative except as outlined in HPI above. Skin: Negative except as outlined in HPI above. HEENT: Negative except as outlined in HPI above. Neck: Negative except as outlined in HPI above. Respiratory: Negative except as outlined in HPI above.. Cardiovascular: Negative except as outlined in HPI above. Abdomen: Negative except as outlined in HPI above. : Negative except as outlined in HPI above. Back/MSK: Negative except as outlined in HPI above. Neuro: Negative except as outlined in HPI above. Psych: Negative except as outlined in HPI above. (NIRMAL BRAGA APRN) Allergies: Allergies: Allergies Coded Allergies Type Severity Reaction Last Updated Verified aspirin Adverse Reaction Intermediate bleeding 10/04/21 Yes (NIRMAL BRAGA APRN) Physical Exam: PE: Constitutional: Well developed, well nourished, no acute distress, non-toxic appearance. [] HENT: Normocephalic, atraumatic, bilateral external ears normal, oropharynx moist, no oral exudates, nose normal. [] Eyes: PERRLA, EOMI, conjunctiva normal, no discharge. [] Neck: Normal range of motion, no tenderness, supple, no stridor. [] Cardiovascular:Heart rate regular rhythm, no murmur [] Lungs & Thorax: Bilateral breath sounds clear to auscultation [] Abdomen: Bowel sounds normal, soft, no tenderness, no masses, no pulsatile masses. [] Skin: Warm, dry, no erythema, no rash. [] Back: No tenderness, no CVA tenderness. [] Extremities: No tenderness, no cyanosis, no clubbing, ROM intact, no edema. [] Neurologic: Alert and oriented X 3, normal motor function, normal sensory function, no focal deficits noted. [] Psychologic: Affect normal, judgement normal, mood normal. [] (NIRMAL BRAGA APRN) Current Patient Data: Labs: Laboratory Tests Test 10/04/21 20:10 White Blood Count 5.7 x10^3/uL (4.0-11.0) Red Blood Count 5.04 x10^6/uL (4.30-5.70) Hemoglobin 8.5 g/dL (13.0-17.5) L Hematocrit 30.5 % (39.0-53.0) L Mean Corpuscular Volume 60 fL (79-100) L Mean Corpuscular Hemoglobin 17 pg (25-35) L Mean Corpuscular Hemoglobin Concent 28 g/dL (31-37) L Red Cell Distribution Width 24.0 % (11.5-14.5) H Platelet Count 527 x10^3/uL (140-400) H Neutrophils (%) (Auto) 65 % (31-73) Lymphocytes (%) (Auto) 23 % (24-48) L Monocytes (%) (Auto) 6 % (0-9) Eosinophils (%) (Auto) 5 % (0-3) H Basophils (%) (Auto) 1 % (0-3) Neutrophils # (Auto) 3.7 x10^3uL (1.8-7.7) Lymphocytes # (Auto) 1.3 x10^3/uL (1.0-4.8) Monocytes # (Auto) 0.3 x10^3/uL (0.0-1.1) Eosinophils # (Auto) 0.3 x10^3/uL (0.0-0.7) Basophils # (Auto) 0.1 x10^3/uL (0.0-0.2) Platelet Estimate Pending Sodium Level 138 mmol/L (136-145) Potassium Level 4.4 mmol/L (3.5-5.1) Chloride Level 101 mmol/L (98-107) Carbon Dioxide Level 29 mmol/L (21-32) Anion Gap 8 (6-14) Blood Urea Nitrogen 19 mg/dL (8-26) Creatinine 0.9 mg/dL (0.7-1.3) Estimated GFR (Cockcroft-Gault) 87.9 Glucose Level 59 mg/dL (70-99) L Calcium Level 8.9 mg/dL (8.5-10.1) Vital Signs: Vital Signs Date Time Temp Pulse Resp B/P (MAP) Pulse Ox O2 Delivery O2 Flow Rate FiO2 10/04/21 19:22 98.0 86 18 122/65 (84) 97 Room Air (NIRMAL BRAGA APRN) EKG: EKG: [] (NIRMAL BRAGA APRN) Radiology/Procedures: Radiology/Procedures: [] (NIRMAL BRAGA APRN) Heart Score: C/O Chest Pain: No Risk Factors: Risk Factors: DM, Current or recent (<one month) smoker, HTN, HLP, family history of CAD, obesity. Risk Scores: Score 0 - 3: 2.5% MACE over next 6 weeks - Discharge Home Score 4 - 6: 20.3% MACE over next 6 weeks - Admit for Clinical Observation Score 7 - 10: 72.7% MACE over next 6 weeks - Early Invasive Strategies (NIRMAL BRAGA APRN) Course & Med Decision Making: Course & Med Decision Making Pertinent Labs and Imaging studies reviewed. (See chart for details) [] 56-year-old male presents with concerns of vomiting blood. Patient is well- known to emergency room. Work-up in ER consist of CBC, CMP. Patient's denying chest pain, shortness of breath, dizziness. All labs unremarkable. Hemoglobin 8.5, hematocrit 30.5 Discussed all results with patient. Patient is requesting something to eat. Patient given a sandwich. Patient discharged to home. Patient is hemodynamically stable and denying symptoms. (NIRMAL BRAGA APRN) Dragon Disclaimer: Dragon Disclaimer: This electronic medical record was generated, in whole or in part, using a voice recognition dictation system. (NIRMAL BRAGA APRN) Attending Co-Sign The patient was seen and interviewed as well as examined at the bedside. The chart was reviewed. The case was discussed. Agree with the plan of care. (DONTAE MCLEAN DO) Departure Departure: Impression: Primary Impression: Vomiting Qualified Codes: R11.10 - Vomiting, unspecified Disposition: HOME / SELF CARE / HOMELESS Condition: STABLE Referrals: CRISS POWER MD (PCP) Patient Instructions: Nausea and Vomiting, [id number] Additional Instructions: EMERGENCY DEPARTMENT GENERAL DISCHARGE INSTRUCTIONS Thank you for coming to [facility] (ED) today and trusting us with you care. We trust that you had a positivie experience in our Emergency Department. If you wish to speak to the department management, you may call the director at [phone]. YOUR FOLLOW UP INSTRUCTIONS ARE FOLLOWS: 1. Do you have a private Doctor? If you do not have a private doctor, please ask for a resource list of physicians or clinics that may be able to assist you with follow up care. 2. The Emergency Physician has interpreted your x-rays. The X-Ray specialist will also review them. If there is a change in the findings, you will be notified in 48 hours when at all possible. 3. A lab test or culture has been done, your results will be reviewed and you will be notified if you need a change in treatment. ADDITIONAL INSTRUCTIONS AND INFORMATION: 1. Your care today has been supervised by a physician who is specially trained in emergency care. Many problems require more than one evaluation for a complete diagnosis and treatment. We recommend that you schedule your follow up appointment as recommended to ensure complete treatment of you illness or injury. If you are unable to obtain follow up care and continue to have a problem, or if your condition worsens, we recommend that you return to the ED. 2. We are not able to safely determine your condition over the phone nor are we able to give sound medical advice over the phone. For these safety reasons, if you call for medical advice we will ask you to come to the ED for further evaluation. 3. If you have any questions regarding these discharge instructions please call the ED at [phone]. SAFETY INFORMATION: In the interest of safety, wellness, and injury prevention; we encourage you to wear your sealbelt, if you smoke; quite smoking, and we encourage family to use a protective helmet for bicycling and other sporting events that present an increased risk for head injury. IF YOUR SYMPTOMS WORSEN OR NEW SYMPTOMS DEVELOP, OR YOU HAVE CONCERNS ABOUT YOUR CONDITION; OR IF YOUR CONDITION WORSENS WHILE YOU ARE WAITING FOR YOUR FOLLOW UP APPOINTMENT; EITHER CONTACT YOUR PRIMARY CARE DOCTOR, THE PHYSICIAN WHOSE NAME AND NUMBER YOU WERE GIVEN, OR RETURN TO THE ED IMMEDIATELY. Scripts No Active Prescriptions or Reported Meds NIRMAL BRAGA APRN Oct 04, 2021 21:27 DONTAE MCLEAN DO Oct 05, 2021 05:27
[2021-10-04 21:38] LABS: ANISOCYTOSIS MOD; HYPOCHROMIA MARKED; MICROCYTOSIS MARKED; PLT ESTIMATE INCREASED (ADEQUATE)
[2021-10-04 21:39] LABS: OVALOCYTES FEW
== END 2021-10-04 21:41 | disposition home or self-care (01) ==
LOC: ER 19:12
DX: R11.10 Vomiting, unspecified (principal); F20.9 Schizophrenia, unspecified; Z88.6 Allergy status to analgesic agent
CPT/HCPCS: 36415; 80048; 85007; 85025; 99283

== ENCOUNTER 2021-10-08 19:28 | Emergency (ER) | payer OTHER ==
[~2021-10-08] VITALS: Ht 180.3 cm; Wt 67.2 kg
[2021-10-08 19:40] VITALS: BP 131/54
--- NOTE | 2021-10-08 20:00 | PHYS DOC ---
Past History Past Medical History: Schizophrenia Additional Past Medical Histor: Raynauds;Nvmkw-Dpcln-Hkkvk Past Surgical History: Tonsillectomy, Other Additional Past Surgical Histo: duodenal surgery; hernia repair Smoking: Non-smoker Alcohol Use: None Drug Use: None General Adult EDM: Chief Complaint: PSYCH EVALUATION HPI: HPI: 56-year-old male presents with paranoia. The patient is well-known to the emergency room. Patient states that his voices have been telling him that he needs to go to [facility] because he is "afraid of everything". He denies suicidal homicidal ideation. He would like to be evaluated by the behavioral health team. He states he gets an Abilify injection and his last injection was about 2 weeks ago. He has no other complaints at this time. Review of Systems: Review of Systems: Constitutional: Denies fever or chills Eyes: Denies change in visual acuity HENT: Denies nasal congestion or sore throat Respiratory: Denies cough or shortness of breath Cardiovascular: Denies chest pain or edema GI: Denies abdominal pain, nausea, vomiting, bloody stools or diarrhea : Denies dysuria Musculoskeletal: Denies back pain or joint pain Integument: Denies rash Neurologic: Denies headache, focal weakness or sensory changes Endocrine: Denies polyuria or polydipsia Lymphatic: Denies swollen glands Psychiatric: Auditory hallucinations. Denies depression or anxiety Allergies: Allergies: Allergies Coded Allergies Type Severity Reaction Last Updated Verified aspirin Adverse Reaction Intermediate bleeding 10/04/21 Yes Physical Exam: PE: Constitutional: Well developed, well nourished, no acute distress, non-toxic appearance. [] HENT: Normocephalic, atraumatic, bilateral external ears normal, oropharynx moist, no oral exudates, nose normal. [] Eyes: PERRLA, EOMI, conjunctiva normal, no discharge. [] Neck: Normal range of motion, no tenderness, supple, no stridor. [] Cardiovascular:Heart rate regular rhythm, no murmur [] Lungs & Thorax: Bilateral breath sounds clear to auscultation [] Abdomen: Bowel sounds normal, soft, no tenderness, no masses, no pulsatile masses. [] Skin: Warm, dry, no erythema, no rash. [] Back: No tenderness, no CVA tenderness. [] Extremities: No tenderness, no cyanosis, no clubbing, ROM intact, no edema. [] Neurologic: Alert and oriented X 3, normal motor function, normal sensory function, no focal deficits noted. [] Psychologic: Affect flat, judgement normal, mood normal. [] Current Patient Data: Vital Signs: Vital Signs Date Time Temp Pulse Resp B/P (MAP) Pulse Ox O2 Delivery O2 Flow Rate FiO2 10/08/21 19:40 94 18 131/54 (79) 98 EKG: EKG: [] Radiology/Procedures: Radiology/Procedures: [] Heart Score: C/O Chest Pain: N/A Risk Factors: Risk Factors: DM, Current or recent (<one month) smoker, HTN, HLP, family history of CAD, obesity. Risk Scores: Score 0 - 3: 2.5% MACE over next 6 weeks - Discharge Home Score 4 - 6: 20.3% MACE over next 6 weeks - Admit for Clinical Observation Score 7 - 10: 72.7% MACE over next 6 weeks - Early Invasive Strategies Course & Med Decision Making: Course & Med Decision Making Pertinent Labs and Imaging studies reviewed. (See chart for details) The patient's labs are significant for anemia. This is similar to his previous lab values. His urinalysis is negative. His urine drug screen is negative. The patient has changed his mind and he would like to go home. He is not a danger to himself or others. I believe this is reasonable. He is stable for discharge at this time. [] Dragon Disclaimer: Dragon Disclaimer: This electronic medical record was generated, in whole or in part, using a voice recognition dictation system. Departure Departure: Impression: Primary Impression: Auditory hallucinations Referrals: CRISS POWER MD (PCP) Patient Instructions: Hallucinations and Delusions Scripts No Active Prescriptions or Reported Meds DONTAE MCLEAN DO Oct 08, 2021 20:00
[2021-10-08 21:06] LABS: BASO % 0 % (0-3); EOS # 0.2 x10^3/uL (0.0-0.7); EOS % 4 % (0-3); HEMATOCRIT 31.9 % (39.0-53.0); HEMOGLOBIN 8.7 g/dL (13.0-17.5); LYMPH % 15 % (24-48); MONO # 0.4 x10^3/uL (0.0-1.1); MONO % 6 % (0-9); NEUT % 75 % (31-73); PLATELET COUNT 246 x10^3/uL (140-400); RED BLOOD COUNT 5.12 x10^6/uL (4.30-5.70); WHITE BLOOD COUNT 6.6 x10^3/uL (4.0-11.0)
[2021-10-08 21:07] LABS: CREATININE 0.9 mg/dL (0.7-1.3); GFR 87.9; POTASSIUM 4.1 mmol/L (3.5-5.1)
[2021-10-08 21:09] LABS: AMPHETAMINE/METHAMPHETAMINE NEG (NEG); BARBITURATES NEG (NEG); BENZODIAZEPINES NEG (NEG); CANNABINOIDS NEG (NEG); COCAINE NEG (NEG); METHADONE NEG (NEG); OPIATES NEG (NEG); PHENCYCLIDINE NEG (NEG)
[2021-10-08 21:12] LABS: MEAN CORPUSCULAR HEMOGLOBIN 17 pg (25-35); MEAN CORPUSCULAR HGB CONC 27 g/dL (31-37); MEAN CORPUSCULAR VOLUME 62 fL (79-100); RED CELL DISTRIBUTION WIDTH 23.5 % (11.5-14.5)
[2021-10-08 21:13] LABS: ALBUMIN 3.8 g/dL (3.4-5.0); TOTAL BILIRUBIN 0.4 mg/dL (0.2-1.0); TOTAL PROTEIN 7.6 g/dL (6.4-8.2)
[2021-10-08 22:18] LABS: CLARITY,URINE CLEAR; COLOR,URINE YELLOW; GLUCOSE,URINE 500 mg/dL (NEG)
[2021-10-08 22:19] LABS: BACTERIA,URINE 0 /HPF (0-FEW); NITRITE,URINE NEG (NEG); RBC,URINE 0 /HPF (0-2); SQUAMOUS EPITHELIAL CELL,UR FEW /LPF; UROBILINOGEN,URINE 0.2 mg/dL (0.2 mg/dL); WBC,URINE 0 /HPF (0-4)
== END 2021-10-08 22:20 | disposition home or self-care (01) ==
LOC: ER 19:28
DX: R44.0 Auditory hallucinations (principal); F20.9 Schizophrenia, unspecified; Z20.822 Contact with and (suspected) exposure to COVID-19; Z88.6 Allergy status to analgesic agent
CPT/HCPCS: 36415; 80053; 80307; 81001; 85025; 99283; C9803; U0003

== ENCOUNTER → 2021-10-14 | Emergency (ER) | payer OTHER ==
[~2021-10-14] VITALS: Ht 180.3 cm; Wt 67.2 kg
[~2021-10-14] MED LIST changes: +ACETAMINOPHEN 500 MG TABLET PO ONE; +FAMO10TA26 PO
[2021-10-14 16:45] VITALS: BP 134/72
--- NOTE | 2021-10-14 17:28 | PHYS DOC ---
Past History Past Medical History: Schizophrenia Additional Past Medical Histor: Raynauds;Lxlzc-Kwzcz-Pkgvl (ROSSY WASHINGTON MD) Past Surgical History: Tonsillectomy, Other Additional Past Surgical Histo: duodenal surgery; hernia repair (ROSSY WASHINGTON MD) Smoking: Non-smoker Alcohol Use: None Drug Use: None (ROSSY WASHINGTON MD) General Adult EDM: Chief Complaint: SYNCOPE HPI: HPI: Patient is a 56-year-old male well-known to the emergency department coming in for "passing out" 2 times while sitting in his chair earlier today, is not able to say what time it occurred. Patient also complaining of a mild frontal headache and low back pain with walking. Patient is known to walk frequently everywhere. Patient was recently evaluated for hallucinations related to his schizophrenia 6 days ago. Patient states he has been eating drinking fine. Denies any chest pain. (ROSSY WASHINGTON MD) Review of Systems: Review of Systems: All other systems within normal limits except for as noted in the HPI (ROSSY WASHINGTON MD) Current Medications: Current Meds: Current Medications Medications (Trade) Dose Ordered Sig/Tomasz Start Time Stop Time Status Last Admin Dose Admin Acetaminophen (Tylenol) 1,000 mg 1X ONCE 10/14/21 17:15 10/14/21 17:19 DC (ROSSY WASHINGTON MD) Allergies: Allergies: Allergies Coded Allergies Type Severity Reaction Last Updated Verified aspirin Adverse Reaction Intermediate bleeding 10/04/21 Yes (ROSSY WASHINGTON MD) Physical Exam: PE: Constitutional: Well developed, well nourished, no acute distress, non-toxic appearance. [] HENT: Normocephalic, atraumatic, bilateral external ears normal, nose normal. [] Eyes: PERRLA, conjunctiva normal, no discharge. [] Neck: No rigidity, supple, no stridor. [] Cardiovascular: Regular rate and rhythm, brisk cap refill [] Lungs & Thorax: Non labored symmetric respirations, no tachypnea or respiratory distress [] Abdomen: Soft, nondistended. Skin: Warm, dry, no erythema, no rash. [] Back: Unremarkable Extremities: No deformities, range of motion grossly intact, no lower extremity edema [] Neurologic: Alert and oriented X 3, no focal deficits noted. [] Psychologic: Affect normal, judgement normal, mood normal. [] (ROSSY WASHINGTON MD) Current Patient Data: Labs: Laboratory Tests Test 10/14/21 16:56 Glucose (Fingerstick) 115 mg/dL (70-99) H (ROSSY WASHINGTON MD) EKG: EKG: Sinus rhythm, heart rate 78 bpm, normal axis, no ST elevation or depression, no ectopy, normal intervals. [] (ROSSY WASHINGTON MD) Radiology/Procedures: Radiology/Procedures: [] (ROSSY WASHINGTON MD) Heart Score: C/O Chest Pain: No Risk Factors: Risk Factors: DM, Current or recent (<one month) smoker, HTN, HLP, family history of CAD, obesity. Risk Scores: Score 0 - 3: 2.5% MACE over next 6 weeks - Discharge Home Score 4 - 6: 20.3% MACE over next 6 weeks - Admit for Clinical Observation Score 7 - 10: 72.7% MACE over next 6 weeks - Early Invasive Strategies (ROSSY WASHINGTON MD) Course & Med Decision Making: Course & Med Decision Making Pertinent Labs and Imaging studies reviewed. (See chart for details) [] (ROSSY WASHINGTON MD) Course & Med Decision Making Patient care handed off to me at checkout. Vital signs not concerning. Patient awake alert and oriented no acute distress. Patient essentially here for rest and food. Ate a whole meal and asking for another. Patient stated he was ready to go but would like 1 more meal before he does. Patient given meal for the road. Advised to follow-up with primary care physician. Gave return precautions to the ED. Patient grateful, verbalized understanding and agreed with plan of discharge. (BENJIE MAN MD) Dragon Disclaimer: Dragon Disclaimer: This electronic medical record was generated, in whole or in part, using a voice recognition dictation system. (ROSSY WASHINGTON MD) Departure Departure: Impression: Primary Impression: Fatigue Disposition: HOME / SELF CARE / HOMELESS Condition: STABLE Referrals: CRISS POWER MD (PCP) Patient Instructions: Fatigue Additional Instructions: Thank you for coming into the emergency department tonight allowing us to take care of you. Please read the attached information carefully go over things we discussed. Please try to eat at least 3 nutritious meals a day and take a multivitamin. Please stay well-hydrated. Please follow-up with your primary care physician as soon as you can update on ED visit and set up a follow-up. Please come back with new or concerning symptoms as we discussed. Scripts No Active Prescriptions or Reported Meds ROSSY WASHINGTON MD Oct 14, 2021 17:28 BENJIE MAN MD Oct 14, 2021 18:13
--- NOTE | 2021-10-14 17:33 | EKG ---
[address] [address] Test Date: 2021-10-14 Test Time: 17:21:54 Pat Name: BOLIVAR JEFF Department: Room: Gender: M [employer]mut[employer] Pilot: POLLY : 1965 Requested By: ROSSY WASHINGTON Order Number: [id number] Reading MD: Pito Dowell Measurements Intervals [place] Rate: 78 P: 47 [place]: 146 QRS: 49 QRSD: 78 T: 57 QT: 334 QTc: 384 Interpretive Statements SINUS RHYTHM NORMAL ECG RI6.02 Compared to ECG 09/24/2021 19:13:40 No significant changes Electronically Signed On 10-19-2021 13:55:18 CDT by Pito Dowell
== END | disposition home or self-care (01) ==
LOC: ER 16:45
DX: R53.83 Other fatigue (principal); R55 Syncope and collapse; R51.9 Headache, unspecified; M54.59 Other low back pain; F20.9 Schizophrenia, unspecified; Z88.6 Allergy status to analgesic agent
CPT/HCPCS: 82947; 93005; 99284

== ENCOUNTER 2021-10-20 18:59 | Emergency (ER) | payer OTHER ==
[~2021-10-20] VITALS: Ht 180.3 cm; Wt 66.2 kg
[~2021-10-20 18:59] MED LIST changes: -ACETAMINOPHEN 500 MG TABLET PO ONE; -FAMO10TA26 PO
--- NOTE | 2021-10-20 19:07 | PHYS DOC ---
Past History Past Medical History: Schizophrenia Additional Past Medical Histor: Raynauds;Oodsd-Lfwjf-Gtszc Past Surgical History: Tonsillectomy, Other Additional Past Surgical Histo: duodenal surgery; hernia repair Smoking: Non-smoker Alcohol Use: None Drug Use: None Adult General HPI HPI Patient is a 56-year-old male, homeless who presents with a multiple complaints but states that he is tired and wants something to eat because he has not eaten today and does not have any money. Denies any medical complaints and denies need for any medical work-up. States he just wants something to eat before he leaves. Review of Systems Review of Systems Constitutional: Denies fever or chills [] Eyes: Denies change in visual acuity, redness, or eye pain [] HENT: Denies nasal congestion or sore throat [] Respiratory: Denies cough or shortness of breath [] Cardiovascular: No additional information not addressed in HPI [] GI: Denies abdominal pain, nausea, vomiting, bloody stools or diarrhea [] : Denies dysuria or hematuria [] Musculoskeletal: Denies back pain or joint pain [] Integument: Denies rash or skin lesions [] Neurologic: Denies headache, focal weakness or sensory changes [] Endocrine: Denies polyuria or polydipsia [] All other systems were reviewed and found to be within normal limits, except as documented in this note. Allergies Allergies Allergies Coded Allergies Type Severity Reaction Last Updated Verified aspirin Adverse Reaction Intermediate bleeding 10/04/21 Yes Physical Exam Physical Exam Constitutional: Well developed, well nourished, no acute distress, non-toxic appearance. [] HENT: Normocephalic, atraumatic, bilateral external ears normal, oropharynx moist, no oral exudates, nose normal. [] Eyes:conjunctiva normal, no discharge. [] Neck: Normal range of motion, no tenderness, supple, no stridor. [] Cardiovascular:Heart rate regular rhythm, no murmur [] Lungs & Thorax: Bilateral breath sounds clear to auscultation [] Abdomen: soft, no tenderness, no masses, no pulsatile masses. [] Skin: Warm, dry, no erythema, no rash. [] Back: No tenderness, no CVA tenderness. [] Extremities: No tenderness, no cyanosis, no clubbing, ROM intact, no edema. [] Neurologic: Alert and oriented X 3, normal motor function, normal sensory function, able to sit, stand and walk without issue, no focal deficits noted. [] Psychologic: Affect normal, judgement normal, mood normal. [] EKG EKG [] Radiology/Procedures Radiology/Procedures [] Heart Score C/O Chest Pain: No Risk Factors: Risk Factors: DM, Current or recent (<one month) smoker, HTN, HLP, family history of CAD, obesity. Risk Scores: Risk Factors: DM, Current or recent (<one month) smoker, HTN, HLP, family history of CAD, obesity. Course & Med Decision Making Course & Med Decision Making Patient is a 56-year-old male who presents, stating he has no money, and wants something to eat. Denies any medical complaints at this time and denies any need for medical work-up Vital signs not concerning. Physical exam noted above. Patient given Hotmail here in the ED and sent home with 1. Given community resource packet that has access to meals and transportation Advised to follow-up soon as possible with primary care physician. Gave return precautions to the ED. Patient grateful, verbalized understanding and agreed with plan of discharge. [] Dragon Disclaimer Dragon Disclaimer This electronic medical record was generated, in whole or in part, using a voice recognition dictation system. Departure Departure: Impression: Primary Impression: Homeless Additional Impression: Hungry Disposition: 01 HOME / SELF CARE / HOMELESS Condition: STABLE Referrals: CRISS POWER MD (PCP) Additional Instructions: Thank you for coming into the emergency department tonight and allowing us to help you. You are given a meal here and a meal for the road. You are also given community resource packet which shows some transportation and resources for food. Please call your primary care physician soon as you can update on ED visit. Please come back with new or concerning symptoms as discussed Scripts No Active Prescriptions or Reported Meds Problem Qualifiers BENJIE MAN MD Oct 20, 2021 19:07
[2021-10-20 19:37] VITALS: BP 128/60
== END 2021-10-20 19:47 | disposition home or self-care (01) ==
LOC: ER 18:59
DX: T73.0XXA Starvation, initial encounter (principal); F20.9 Schizophrenia, unspecified; Z59.00 Homelessness unspecified; Z88.6 Allergy status to analgesic agent; X58.XXXA Exposure to other specified factors, initial encounter
CPT/HCPCS: 99281

== ENCOUNTER 2021-10-21 18:29 | Emergency (ER) | payer OTHER ==
[~2021-10-21] VITALS: Ht 180.3 cm; Wt 66.2 kg
--- NOTE | 2021-10-21 18:34 | PHYS DOC ---
Past History Past Medical History: Schizophrenia Additional Past Medical Histor: Raynauds;Uyoxt-Quucr-Eermf Past Surgical History: Tonsillectomy, Other Additional Past Surgical Histo: duodenal surgery; hernia repair Smoking: Non-smoker Alcohol Use: None Drug Use: None Adult General HPI HPI Patient is a 56-year-old male, questionably homeless who presents to the emergency department frequently because he is tired and wants something to eat and is tired. Stated that he had an episode of vomiting early this morning and thought it was a funny color. States that since then he has felt well and has had things to eat. States he only ate once today to and is hungry. Then he stated he thinks he actually threw up yesterday and it was not today. Currently denies symptoms or need for medical work-up. Denies any recent travels, traumas, illness, fevers, chest pain, shortness of breath, abdominal pain, dysuria, hematuria, diarrhea or blood in the stool. Review of Systems Review of Systems Review of systems otherwise unremarkable except noted in HPI Allergies Allergies Allergies Coded Allergies Type Severity Reaction Last Updated Verified aspirin Adverse Reaction Intermediate bleeding 10/04/21 Yes Physical Exam Physical Exam Constitutional: Well developed, well nourished, no acute distress, non-toxic appearance. [] HENT: Normocephalic, atraumatic, bilateral external ears normal, oropharynx mo ist, no oral exudates, nose normal. [] Eyes: conjunctiva normal, no discharge. [] Neck: Normal range of motion, no tenderness, supple, no stridor. [] Cardiovascular:Heart rate regular rhythm, no murmur [] Lungs & Thorax: Bilateral breath sounds clear to auscultation [] Abdomen: soft, no tenderness, no masses, no pulsatile masses. [] Skin: Warm, dry, no erythema, no rash. [] Extremities: No tenderness, no cyanosis, no clubbing, ROM intact, no edema. [] Neurologic: Alert and oriented X 3, able to sit, stand and walk without issue no focal deficits noted. [] Psychologic: Affect normal, judgement normal, mood normal. [] EKG EKG [] Radiology/Procedures Radiology/Procedures [] Heart Score C/O Chest Pain: No Risk Factors: Risk Factors: DM, Current or recent (<one month) smoker, HTN, HLP, family history of CAD, obesity. Risk Scores: Risk Factors: DM, Current or recent (<one month) smoker, HTN, HLP, family history of CAD, obesity. Course & Med Decision Making Course & Med Decision Making Patient is a 56-year-old homeless male who presents with questionable symptoms but mainly stating that he would like something to eat and is tired Vital signs nonconcerning. Physical exam noted above. Patient given something to eat which he tolerated well. After that stated he felt safe going home. Advised to keep his upcoming appointment this week with his counselor and make an appointment with his primary care physician as well. Given contact information for local resources including food, clothing and transportation. Gave return precautions to the ED. Patient grateful, verbalized understanding and agreed with plan of discharge [] Dragon Disclaimer Dragon Disclaimer This electronic medical record was generated, in whole or in part, using a voice recognition dictation system. Departure Departure: Impression: Primary Impression: Fatigue Disposition: HOME / SELF CARE / HOMELESS Condition: STABLE Referrals: CRISS POWER MD (PCP) Patient Instructions: Fatigue Additional Instructions: Thank you for coming into the emergency department tonight and allowing us to take care of you. Please read all the attached information carefully to go over things we discussed. You are given a local resource packet which showed assistance for housing, food and clothing. You are given something to eat in the emergency department. Please follow-up with your primary care physician to see if you can update on ED visit and set up a follow-up. Please come back with new or concerning symptoms as we discussed. Scripts No Active Prescriptions or Reported Meds BENJIE MAN MD Oct 21, 2021 18:34
[2021-10-21 19:00] VITALS: BP 112/63
[2021-10-22] MEDS ORDERED: FAMO10TA26 PO (19:29)
== END 2021-10-21 19:00 | disposition home or self-care (01) ==
LOC: ER 18:29
DX: R53.83 Other fatigue (principal); R11.10 Vomiting, unspecified; F20.9 Schizophrenia, unspecified; Z59.00 Homelessness unspecified; Z88.6 Allergy status to analgesic agent
CPT/HCPCS: 99281

== ENCOUNTER 2021-10-22 18:48 | Emergency (ER) | payer OTHER ==
[~2021-10-22] VITALS: Ht 180.3 cm; Wt 66.2 kg
[2021-10-22 18:48] VITALS: BP 103/55
--- NOTE | 2021-10-22 18:50 | PHYS DOC ---
Past History Past Medical History: Schizophrenia Additional Past Medical Histor: Raynauds;Aobjn-Tzqzh-Bnflm Past Surgical History: Tonsillectomy, Other Additional Past Surgical Histo: duodenal surgery; hernia repair Smoking: Non-smoker Alcohol Use: None Drug Use: None General Adult HPI: HPI: ". I worried I have a broke appendix... my stomach been hurting since I ate a can of cream corn at 5 today... the voices told me to come..." Patient is a 56 year old male who presents with above hx and complaints of abdomen pain stating the voices telling him to come and get checked out. Pt. well-known to the emergency department for frequent ED evaluations. Patient very noncompliant with medical regimens and follow-ups. Has underlying schizophrenia. Frequently noncompliant with any medications for his schi zophrenia symptoms. He is frequently seen wandering the [facility]. Patient has past medical history of chronic anemia, Lkyav-Rtyrd-Zsskb, Raynaud's syndrome, gastritis and duodenal resection surgery for GI bleed. Hernia repair. Does have hallucinations and delusions. Frequently hears voices of 3 females that are common theme for his hallucinations. Patient is a very poor historian. No history of fever or chills. No history of bad food intake. No history of trauma. The patient currently following with Dr. Power-but has never made any follow-up visits. Patient has not been following at the counseling center as previously directed for his schizophrenia. Patient has not been taking his Depo shots for schizophrenia. The older female voice-hallucination has been talking to him over the radio, was upset that someone said Hi to him on the street. She is the voice that told him to come to ED to get checked out. Patient did eat a can of cream corn at 1700 hrs. today. Patient worried that maybe he had a broken appendix because he had some stomach cramps this afternoon. Patient reportedly had a normal stool today. No recent travel outside [facility]. Patient does not smoke or drink. Patient not taking any NSAIDs. No dark or tarry stools. Patient has not gotten flu vaccination. Patient has not gotten COVID vaccination. Patient states he never does those kinds of shots. Pt. has not had any recent contact with his brother. Pt. does have an apartment to go to for housing. Patient have unclean clothing and appears And good hygiene. Review of Systems: Review of Systems: Constitutional: Denies fever or chills Eyes: Denies change in visual acuity HENT: Denies nasal congestion or sore throat Respiratory: Denies cough or shortness of breath Cardiovascular: Denies chest pain or edema GI: Denies abdominal pain, nausea, vomiting, bloody stools or diarrhea : Denies dysuria Musculoskeletal: Denies back pain or joint pain Integument: Denies rash Neurologic: Denies headache, focal weakness or sensory changes Endocrine: Denies polyuria or polydipsia Lymphatic: Denies swollen glands Psychiatric: Denies depression or anxiety Family History: Family History: Noncontributory the presentation currently not available Current Medications: Current Meds: See nursing for home meds Allergies: Allergies: Allergies Coded Allergies Type Severity Reaction Last Updated Verified aspirin Adverse Reaction Intermediate bleeding 10/04/21 Yes Physical Exam: PE: Constitutional:, no acute distress, non-toxic appearance. [] HENT: Normocephalic, atraumatic, bilateral external ears normal, oropharynx moist, no oral exudates, nose normal. Speckled lip AV lesions on his lips Eyes: PERRLA, EOMI, conjunctiva normal, no discharge. [] Neck: Normal range of motion, no tenderness, supple, no stridor. [] Cardiovascular:Heart rate regular rhythm, no murmur [] Lungs & Thorax: Bilateral breath sounds equal apex on auscultation [] Abdomen: Bowel sounds normal, soft, epigastric tenderness with deep palpation, mild distention,, no masses, no pulsatile masses. Old surgery scars Skin: Warm, dry, no erythema, no rash. [] Back: No tenderness, no CVA tenderness. [] Extremities: No tenderness, no cyanosis, no clubbing, ROM intact, no edema. No psoas sign. Neurologic: Alert and oriented X 3, nmoves all extremities on request, has distal sensory, no focal deficits noted. [] Psychologic: Affect anxious, judgement normal for this patient,, mood normal. Hallucinations and delusions. No suicidal ideation. No homicidal ideation. EKG: EKG: [] Radiology/Procedures: Radiology/Procedures: [] Heart Score: C/O Chest Pain: N/A Risk Factors: Risk Factors: DM, Current or recent (<one month) smoker, HTN, HLP, family history of CAD, obesity. Risk Scores: Score 0 - 3: 2.5% MACE over next 6 weeks - Discharge Home Score 4 - 6: 20.3% MACE over next 6 weeks - Admit for Clinical Observation Score 7 - 10: 72.7% MACE over next 6 weeks - Early Invasive Strategies Course & Med Decision Making: Course & Med Decision Making Pertinent Labs and Imaging studies reviewed. (See chart for details) Pt. to stary on clear fluid diet only x 48 hrs. No solid or milk products. Push clear fluids such as apple juice, grape juice, popsicles, Jell-O, sweet tea, Pedialyte, Gatorade. Avoid milk or milk products. Follow-up with Dr. Power. Return if any concerns. Keep follow-up at counseling center. Return if any concerns. Impression: 1. Abdomen pain 2. Schizophrenia 3. History of noncompliance 4. Lavelle Kern Rendu 5. Hx Raynaud's syndrome 6. Location and hx consistent with Gastritis 7. Auditory hallucinations and delusions [] Dragon Disclaimer: Dragon Disclaimer: This electronic medical record was generated, in whole or in part, using a voice recognition dictation system. Departure Departure: Referrals: CRISS POWER MD (PCP) Scripts Famotidine (PEPCID AC) 10 Mg Tablet 20 MG PO BID for gastritis for 30 Days, #120 TAB Prov: KENDELL STEWART MD 10/22/21 Dragcindy Disclaimer This chart was dictated in whole or in part using Voice Recognition software in a busy, high-work load, and often noisy Emergency Department environment. It may contain unintended and wholly unrecognized errors or omissions. Dragon Disclaimer This chart was dictated in whole or in part using Voice Recognition software in a busy, high-work load, and often noisy Emergency Department environment. It may contain unintended and wholly unrecognized errors or omissions. KENDELL STEWART MD Oct 22, 2021 18:50
[2021-10-22] MEDS ORDERED: FAMOTIDINE 20 MG TABLET PO ONE (19:15)
[2021-10-22] MEDS ORDERED: MAGNESIUM HYDROXIDE 2,400 MG/30 ML ORAL.SUSP. PO ONE (19:15)
[2021-10-22] MEDS ORDERED: FAMO10TA26 PO (19:29)
[2021-10-22] MEDS ORDERED: ACETAMINOPHEN 500 MG TABLET PO ONE (19:30)
== END 2021-10-22 21:33 | disposition home or self-care (01) ==
LOC: ER 18:48
DX: F20.9 Schizophrenia, unspecified (principal); R10.13 Epigastric pain; I78.0 Hereditary hemorrhagic telangiectasia; F22 Delusional disorders; I73.00 Raynaud's syndrome without gangrene; Z88.6 Allergy status to analgesic agent
CPT/HCPCS: 99283

== ENCOUNTER 2021-10-27 18:41 | Emergency (ER) | payer OTHER ==
[~2021-10-27] VITALS: Ht 180.3 cm; Wt 66.2 kg
[~2021-10-27 18:41] MED LIST changes: +FAMO10TA26 PO
[2021-10-27 18:50] VITALS: BP 113/61
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
== END 2021-10-27 21:18 | disposition home or self-care (01) ==
LOC: ER 18:41
DX: F20.9 Schizophrenia, unspecified (principal); F22 Delusional disorders; Z91.19 Patient's noncompliance with other medical treatment and regimen; Z87.11 Personal history of peptic ulcer disease; Z86.2 Personal history of diseases of the blood and blood-forming organs and certain disorders involving the immune mechanism; Z88.6 Allergy status to analgesic agent
CPT/HCPCS: 99281

== ENCOUNTER 2021-10-29 15:41 | Emergency (ER) | payer OTHER ==
[~2021-10-29] VITALS: Ht 180.3 cm; Wt 66.1 kg
[2021-10-29 15:50] VITALS: BP 123/84
--- NOTE | 2021-10-29 16:04 | PHYS DOC ---
Past History Past Medical History: Schizophrenia Additional Past Medical Histor: Raynauds;Miymz-Gbfso-Bcpwq Past Surgical History: Tonsillectomy, Other Additional Past Surgical Histo: duodenal surgery; hernia repair Smoking: Non-smoker Alcohol Use: None Drug Use: None General Adult EDM: Chief Complaint: WEAKNESS/GENERALIZED HPI: HPI: Patient is a 56-year-old homeless male who presents to the emergency department for hunger. Patient reports that he feels weak because he has not eaten at all today. This patient is well-known to the emergency department for this complaint. Patient reports that he last ate yesterday night. Patient denies any fevers, nausea, vomiting, cough, sick exposures, shortness of breath. Review of Systems: Review of Systems: Constitutional: See HPI Respiratory: See HPI Cardiovascular: See HPI GI: See HPI Allergies: Allergies: Allergies Coded Allergies Type Severity Reaction Last Updated Verified aspirin Adverse Reaction Intermediate bleeding 10/04/21 Yes Physical Exam: PE: Constitutional: Well developed, well nourished, no acute distress, non-toxic appearance. [] HENT: Normocephalic, atraumatic, bilateral external ears normal, oropharynx moist, no oral exudates, nose normal. [] Eyes: PERRL, EOMI, conjunctiva normal, no discharge. [] Neck: Normal range of motion, no stridor Cardiovascular:Heart rate regular rhythm, no murmur [] Lungs & Thorax: Bilateral breath sounds clear to auscultation [] Abdomen: Bowel sounds normal, soft, no tenderness, no masses, no pulsatile masses. [] Skin: Warm, dry, no erythema, no rash. [] Back: No tenderness, normal range of motion Extremities: No tenderness, no cyanosis, no clubbing, ROM intact, no edema. [] Neurologic: Alert and oriented X 3, normal motor function, normal sensory function, no focal deficits noted. [] Psychologic: Affect normal, judgement normal, mood normal. [] EKG: EKG: [] Radiology/Procedures: Radiology/Procedures: [] Heart Score: C/O Chest Pain: N/A Risk Factors: Risk Factors: DM, Current or recent (<one month) smoker, HTN, HLP, family history of CAD, obesity. Risk Scores: Score 0 - 3: 2.5% MACE over next 6 weeks - Discharge Home Score 4 - 6: 20.3% MACE over next 6 weeks - Admit for Clinical Observation Score 7 - 10: 72.7% MACE over next 6 weeks - Early Invasive Strategies Course & Med Decision Making: Course & Med Decision Making Pertinent Labs and Imaging studies reviewed. (See chart for details) [] Patient presents to the emergency department for hunger and reports that he feels weak because he is so hungry. This patient is well-known in this emergency department for this complaint. Patient is homeless. Patient will be given a lunch tray for now and he will be sent home with a lunch tray for later.. Patient advised to follow-up with clinics that are attached to this paperwork and he is given community resources.. I discussed with patient all findings and diagnostic testing as well as the need to follow-up with PCP for further evaluation and treatment or return to the ER if any new or worsening symptoms. Strict return precautions were also discussed at length. Patient voiced understanding and agreement with the plan. Patient is hemodynamically stable at the time of disposition. Eliazar Disclaimer: Eliazar Disclaimer: This electronic medical record was generated, in whole or in part, using a voice recognition dictation system. Departure Departure: Impression: Primary Impression: Hunger Qualified Codes: T73.0XXA - Starvation, initial encounter Disposition: HOME / SELF CARE / HOMELESS Condition: GOOD Referrals: CRISS POWER MD (PCP) Patient Instructions: Medical Screening Exam Additional Instructions: You are seen in the emergency department today for hunger and weakness. Please follow-up with the community resources that you were given. Return to the emergency department if you develop any new or worsening complaints. OLIVIA PAYNE MILLWORK ESTIMATOR Oct 29, 2021 16:04
== END 2021-10-29 17:13 | disposition home or self-care (01) ==
LOC: ER 15:41
DX: T73.0XXA Starvation, initial encounter (principal); F20.9 Schizophrenia, unspecified; Z88.6 Allergy status to analgesic agent; X58.XXXA Exposure to other specified factors, initial encounter
CPT/HCPCS: 99281

== ENCOUNTER 2021-10-31 14:15 | Emergency (ER) | payer OTHER ==
[~2021-10-31] VITALS: Ht 180.3 cm; Wt 65.0 kg
[2021-10-31 14:23] VITALS: BP 117/57
--- NOTE | 2021-10-31 15:51 | RAD ---
EXAM: Left lower extremity venous Doppler. HISTORY: Left lower extremity pain/swelling. COMPARISON: None. FINDINGS: Grayscale and Doppler analysis of the left lower extremity deep venous system was performed with graded compression and augmentation. The common femoral, greater saphenous, superficial femoral , popliteal and calf veins were assessed. There is no evidence of deep venous thrombosis. IMPRESSION: 1. No evidence of deep venous thrombosis. Electronically signed by: Ava Briones MD (10/31/2021 3:49 PM) [id number]
--- NOTE | 2021-10-31 16:27 | PHYS DOC ---
Past History Past Medical History: Schizophrenia Additional Past Medical Histor: Raynauds;Eviao-Ukesk-Rmzqe (NIRMAL BRAGA APRN) Past Surgical History: Tonsillectomy, Other Additional Past Surgical Histo: duodenal surgery; hernia repair (NIRMAL BRAGA APRN) Smoking: Non-smoker Alcohol Use: None Drug Use: None (NIRMAL BRAGA APRN) General Adult EDM: Chief Complaint: LOWER EXT PAIN HPI: HPI: Patient is a 56-year-old male who presents with left, lower extremity pain. Patient denies injury. No swelling, redness to the area. Patient states he has had a history of a DVT. Denies recent travel. Patient does walk a lot around town. Denies taking anything for pain. (NIRMAL BRAGA APRN) Review of Systems: Review of Systems: ROS At least 10 ROS systems have been reviewed and are negative except as documented in the HPI. General: Negative except as outlined in HPI above. Skin: Negative except as outlined in HPI above. HEENT: Negative except as outlined in HPI above. Neck: Negative except as outlined in HPI above. Respiratory: Negative except as outlined in HPI above.. Cardiovascular: Negative except as outlined in HPI above. Abdomen: Negative except as outlined in HPI above. : Negative except as outlined in HPI above. Back/MSK: Negative except as outlined in HPI above. Neuro: Negative except as outlined in HPI above. Psych: Negative except as outlined in HPI above. (NIRMAL BRAGA APRN) Allergies: Allergies: Allergies Coded Allergies Type Severity Reaction Last Updated Verified aspirin Adverse Reaction Intermediate bleeding 10/04/21 Yes (NIRMAL BRAGA APRN) Physical Exam: PE: Constitutional: Well developed, well nourished, no acute distress, non-toxic appearance. [] HENT: Normocephalic, atraumatic, bilateral external ears normal, oropharynx moist, no oral exudates, nose normal. [] Eyes: PERRLA, EOMI, conjunctiva normal, no discharge. [] Neck: Normal range of motion, no tenderness, supple, no stridor. [] Cardiovascular:Heart rate regular rhythm, no murmur [] Lungs & Thorax: Bilateral breath sounds clear to auscultation [] Abdomen: Bowel sounds normal, soft, no tenderness, no masses, no pulsatile masses. [] Skin: Warm, dry, no erythema, no rash. [] Back: No tenderness, no CVA tenderness. [] Extremities: Left lower extremity tenderness, no swelling, no redness, range of motion is intact, sensations intact, pedal pulses intact Neurologic: Alert and oriented X 3, normal motor function, normal sensory function, no focal deficits noted. [] Psychologic: Affect normal, judgement normal, mood normal. [] (NIRMAL BRAGA APRN) Current Patient Data: Vital Signs: Vital Signs Date Time Temp Pulse Resp B/P (MAP) Pulse Ox O2 Delivery O2 Flow Rate FiO2 10/31/21 14:23 98.9 88 16 117/57 (77) 99 Room Air (NIRMAL BRAGA APRN) EKG: EKG: [] (NIRMAL BRAGA APRN) Radiology/Procedures: Radiology/Procedures: [] (NIRMAL BRAGA APRN) Heart Score: C/O Chest Pain: No Risk Factors: Risk Factors: DM, Current or recent (<one month) smoker, HTN, HLP, family history of CAD, obesity. Risk Scores: Score 0 - 3: 2.5% MACE over next 6 weeks - Discharge Home Score 4 - 6: 20.3% MACE over next 6 weeks - Admit for Clinical Observation Score 7 - 10: 72.7% MACE over next 6 weeks - Early Invasive Strategies (NIRMAL BRAGA APRN) Course & Med Decision Making: Course & Med Decision Making Pertinent Labs and Imaging studies reviewed. (See chart for details) [] 56-year-old male presents with left, lower extremity pain. No injury. No swelling or redness seen. Patient has a past history of DVT in the left leg. Ultrasound ordered to rule out DVT. Ultrasound of left lower extremity was unremarkable. Advised patient of results . Patient given ibuprofen for discomfort. Discussed return precautions. Patient's appreciative and okay with discharge plan. (NIRMAL BRAGA APRN) Dragon Disclaimer: Dragon Disclaimer: This electronic medical record was generated, in whole or in part, using a voice recognition dictation system. (NIRMAL BRAGA APRN) Attending Co-Sign The patient was seen and interviewed as well as examined at the bedside. The chart was reviewed. The case was discussed. Agree with the plan of care. (DONTAE MCLEAN DO) Departure Departure: Impression: Primary Impression: Left leg DVT Qualified Codes: I82.402 - Acute embolism and thrombosis of unspecified deep veins of left lower extremity Disposition: HOME / SELF CARE / HOMELESS Condition: STABLE Referrals: CRISS POWER MD (PCP) Patient Instructions: Leg Cramps Additional Instructions: Your ultrasound was unremarkable. You can take ibuprofen and Tylenol for discomfort. Return to the emergency room if you have worsening symptoms or con cerns. EMERGENCY DEPARTMENT GENERAL DISCHARGE INSTRUCTIONS Thank you for coming to [facility] (ED) today and trusting us with you care. We trust that you had a positivie experience in our Emergency Department. If you wish to speak to the department management, you may call the director at [phone]. YOUR FOLLOW UP INSTRUCTIONS ARE FOLLOWS: 1. Do you have a private Doctor? If you do not have a private doctor, please ask for a resource list of physicians or clinics that may be able to assist you with follow up care. 2. The Emergency Physician has interpreted your x-rays. The X-Ray specialist will also review them. If there is a change in the findings, you will be notified in 48 hours when at all possible. 3. A lab test or culture has been done, your results will be reviewed and you will be notified if you need a change in treatment. ADDITIONAL INSTRUCTIONS AND INFORMATION: 1. Your care today has been supervised by a physician who is specially trained in emergency care. Many problems require more than one evaluation for a complete diagnosis and treatment. We recommend that you schedule your follow up appointment as recommended to ensure complete treatment of you illness or injury. If you are unable to obtain follow up care and continue to have a problem, or if your condition worsens, we recommend that you return to the ED. 2. We are not able to safely determine your condition over the phone nor are we able to give sound medical advice over the phone. For these safety reasons, if you call for medical advice we will ask you to come to the ED for further evaluation. 3. If you have any questions regarding these discharge instructions please call the ED at [phone]. SAFETY INFORMATION: In the interest of safety, wellness, and injury prevention; we encourage you to wear your sealbelt, if you smoke; quite smoking, and we encourage family to use a protective helmet for bicycling and other sporting events that present an increased risk for head injury. IF YOUR SYMPTOMS WORSEN OR NEW SYMPTOMS DEVELOP, OR YOU HAVE CONCERNS ABOUT YOUR CONDITION; OR IF YOUR CONDITION WORSENS WHILE YOU ARE WAITING FOR YOUR FOLLOW UP APPOINTMENT; EITHER CONTACT YOUR PRIMARY CARE DOCTOR, THE PHYSICIAN WHOSE NAME AND NUMBER YOU WERE GIVEN, OR RETURN TO THE ED IMMEDIATELY. NIRMAL BRAGA APRN Oct 31, 2021 16:27 DONTAE MCLEAN DO Nov 01, 2021 06:16
== END 2021-10-31 16:33 | disposition home or self-care (01) ==
LOC: ER 14:15
DX: I82.402 Acute embolism and thrombosis of unspecified deep veins of left lower extremity (principal); F20.9 Schizophrenia, unspecified; Z86.718 Personal history of other venous thrombosis and embolism; Z88.6 Allergy status to analgesic agent
CPT/HCPCS: 93971; 99284

== ENCOUNTER 2021-11-02 20:30 | Emergency (ER) | payer OTHER | END 2021-11-02 22:00 | disposition home or self-care (01) | LOC: ER 20:30 | DX: R53.83 Other fatigue (principal); Z59.00 Homelessness unspecified | CPT/HCPCS: 99281 ==

== ENCOUNTER 2021-11-11 03:43 | Emergency (ER) | payer OTHER ==
[~2021-11-11] VITALS: Ht 180.3 cm; Wt 67.2 kg
[2021-11-11 03:50] VITALS: BP 110/55
[2021-11-11] MEDS ORDERED: ARIP400S IM (03:58)
--- NOTE | 2021-11-11 04:13 | PHYS DOC ---
Past History Past Medical History: Schizophrenia Additional Past Medical Histor: Raynauds;Ywnge-Jgzfi-Jrycu Past Surgical History: Tonsillectomy, Other Additional Past Surgical Histo: duodenal surgery; hernia repair Smoking: Non-smoker Alcohol Use: None Drug Use: None General Adult EDM: Chief Complaint: BACK PAIN - NO INJURY HPI: HPI: 56-year-old male who is well-known to the emergency room presents with mid to low back pain. Patient tells me he was walking around a lot and has mid to lower back pain. He he has not take any medication for this. He denies any falls or trauma. The patient hears voices that tell him to do and not do things. They frequently tell him not to eat but that he is allowed to eat hospital food. Patient has no other complaints this time. Review of Systems: Review of Systems: Constitutional: Denies fever or chills Eyes: Denies change in visual acuity HENT: Denies nasal congestion or sore throat Respiratory: Denies cough or shortness of breath Cardiovascular: Denies chest pain or edema GI: Denies abdominal pain, nausea, vomiting, bloody stools or diarrhea : Denies dysuria Musculoskeletal: Low back pain Integument: Denies rash Neurologic: Denies headache, focal weakness or sensory changes Endocrine: Denies polyuria or polydipsia Lymphatic: Denies swollen glands Psychiatric: Denies depression or anxiety Allergies: Allergies: Allergies Coded Allergies Type Severity Reaction Last Updated Verified aspirin Adverse Reaction Intermediate bleeding 11/11/21 Yes Physical Exam: PE: Constitutional: Well developed, well nourished, no acute distress, non-toxic appearance. [] HENT: Normocephalic, atraumatic, bilateral external ears normal, oropharynx moist, no oral exudates, nose normal. [] Eyes: PERRLA, EOMI, conjunctiva normal, no discharge. [] Neck: Normal range of motion, no tenderness, supple, no stridor. [] Cardiovascular:Heart rate regular rhythm, no murmur [] Lungs & Thorax: Bilateral breath sounds clear to auscultation [] Abdomen: Bowel sounds normal, soft, no tenderness, no masses, no pulsatile masses. [] Skin: Warm, dry, no erythema, no rash. [] Back: Lumbar paraspinal muscle tightness, no palpation or pain of the bony prominences. [] Extremities: No tenderness, no cyanosis, no clubbing, ROM intact, no edema. [] Neurologic: Alert and oriented X 3, normal motor function, normal sensory function, no focal deficits noted. [] Psychologic: Affect flat, judgement normal, mood normal. [] Current Patient Data: Vital Signs: Vital Signs Date Time Temp Pulse Resp B/P (MAP) Pulse Ox O2 Delivery O2 Flow Rate FiO2 11/11/21 03:50 97.9 78 18 110/55 (73) 99 Room Air EKG: EKG: [] Radiology/Procedures: Radiology/Procedures: [] Heart Score: C/O Chest Pain: N/A Risk Factors: Risk Factors: DM, Current or recent (<one month) smoker, HTN, HLP, family history of CAD, obesity. Risk Scores: Score 0 - 3: 2.5% MACE over next 6 weeks - Discharge Home Score 4 - 6: 20.3% MACE over next 6 weeks - Admit for Clinical Observation Score 7 - 10: 72.7% MACE over next 6 weeks - Early Invasive Strategies Course & Med Decision Making: Course & Med Decision Making Pertinent Labs and Imaging studies reviewed. (See chart for details) We have given the patient a meal in the emergency room. I have given him naproxen for his back pain. He is stable for discharge at this time. [] Thereseon Disclaimer: Eliazar Disclaimer: This electronic medical record was generated, in whole or in part, using a voice recognition dictation system. Departure Departure: Impression: Primary Impression: Low back pain Additional Impression: Auditory hallucinations Disposition: HOME / SELF CARE / HOMELESS Condition: STABLE Referrals: CRISS POWER MD (PCP) Patient Instructions: Low Back Strain with [facility] DONTAE MCLEAN DO November 11, 2021 04:13
[2021-11-11] MEDS ORDERED: NAPROXEN 500 MG TABLET PO ONE (04:30)
== END 2021-11-11 04:30 | disposition home or self-care (01) ==
LOC: ER 03:43
DX: M54.59 Other low back pain (principal); R44.0 Auditory hallucinations; F20.9 Schizophrenia, unspecified; Z88.6 Allergy status to analgesic agent
CPT/HCPCS: 99282

== ENCOUNTER 2021-11-14 01:48 | Emergency (ER) | payer OTHER ==
[~2021-11-14] VITALS: Ht 180.3 cm; Wt 66.8 kg
--- NOTE | 2021-11-14 01:56 | PHYS DOC ---
Past History Past Medical History: Anxiety, Depression, Schizophrenia Additional Past Medical Histor: Raynauds;Ovoqb-Xshsj-Mhurc (KENDELL STEWART MD) Past Surgical History: Tonsillectomy, Other Additional Past Surgical Histo: duodenal surgery; hernia repair (KENDELL STEWART MD) Smoking: Non-smoker Alcohol Use: None Drug Use: None (KENDELL STEWART MD) General Adult HPI: HPI: ".. I ve been harassed... The voices. The older lady .. been the worse.. she said I had to come in... I did go to the Counseling center in September.. I think that was the last time .. I got my shots.. I am getting depressed .. and very sad... " Patient is a 56 year old male who presents with above hx and complaints auditory hallucinations. Patient is well-known to emergency department for his frequent ED visits. Patient has long history of underlying's schizophrenia and noncompliance. Patient has also had a long history of AV malformations, Izcup-Ihwbv-Xzdsf, anemia, bronchitis, depression, DVTs, epistaxis, constipation, Raynaud's,, duodenal ulcer surgery, and schizophrenia. Patient is to get monthly injections at the guidance Center but frequently misses injections. Patient has not kept follow-ups with Dr. Walls because hallucinations tell him not to go. Patient does have previous evaluations for anorexia and weakness. Patient does admit to not going to the counseling center since September. Admits to some suicidal ideation but no specific plan as yet. (KENDELL STEWART MD) Review of Systems: Review of Systems: Constitutional: Denies fever or chills Eyes: Denies change in visual acuity HENT: Denies nasal congestion or sore throat Respiratory: Denies cough or shortness of breath Cardiovascular: Denies chest pain or edema GI: Denies abdominal pain, nausea, vomiting, bloody stools or diarrhea : Denies dysuria Musculoskeletal: Denies back pain or joint pain Integument: Denies rash Neurologic: Denies headache, focal weakness or sensory changes Endocrine: Denies polyuria or polydipsia Lymphatic: Denies swollen glands Psychiatric: Denies depression or anxiety (KENDELL STEWART MD) Family History: Family History: Noncontributory to presentation (KENDELL STEWART MD) Current Medications: Current Meds: See nursing for home meds (KENDELL STEWART MD) Allergies: Allergies: Allergies Coded Allergies Type Severity Reaction Last Updated Verified aspirin Adverse Reaction Intermediate bleeding 11/11/21 Yes (KENDELL STEWART MD) Physical Exam: PE: Constitutional: Moderate acute emotional distress, non-toxic appearance. [] HENT: Normocephalic, atraumatic, bilateral external ears normal, oropharynx moist, no oral exudates, nose normal. Lip lesions. Eyes: PERRLA, EOMI, conjunctiva pale,, no discharge. [] Neck: Normal range of motion, no tenderness, supple, no stridor. [] Cardiovascular:Heart rate regular rhythm, no murmur [] Lungs & Thorax: Bilateral breath sounds equal apex auscultation [] Abdomen: Bowel sounds normal, soft, no tenderness, no masses, no pulsatile masses. Mild to moderate distention. Old surgery scars. Skin: Warm, dry, no erythema, no rash. [] Back: No tenderness, no CVA tenderness. [] Extremities: No tenderness, no cyanosis, no clubbing, ROM intact, no edema. No cording. Neurologic: Alert and oriented X 3 moves all extremities on request, has distal sensory, no focal deficits noted. [] Psychologic: Affect anxious, depressed, sad, judgement normal, does admit to auditory hallucinations. No suicidal ideations. No homicidal ideations. (KENDELL STEWART MD) EKG: EKG: My interpretation of EKG shows a sinus rhythm at 74 bpm. Right bundle branch block. No findings of acute STEMI of contralateral changes. Time of EKG is 306 hours [] (KENDELL STEWART MD) Radiology/Procedures: Radiology/Procedures: [][address] [address] IMAGING REPORT Signed PATIENT: BOLIVAR JEFF ACCOUNT: [id number] : 1965 LOCATION: ER AGE: 56 SEX: M EXAM STATUS: REG ER ORD. PHYSICIAN: KENDELL STEWART MD REASON: Chest and abdomen pain PROCEDURE: ACUTE ABDOMEN SERIES ACUTE ABDOMEN SERIES History: Chest and abdomen pain. Comparison: AP chest September 24, 2021. Findings: Frontal chest and supine and upright views of the abdomen. Cardiomediastinal silhouette is normal. There is no pleural effusion or pneumothorax. The lungs are clear. No pneumoperitoneum is identified. Air distends the stomach. No dilated air- filled loops of small bowel are seen. There is moderate colon stool volume. Bowel gas pattern is nonobstructive. No obvious organomegaly. Bones unremarkable. IMPRESSION: 1. No acute cardiopulmonary process. 2. Nonobstructive bowel gas pattern. 3. Moderate colon stool volume suggests constipation. Electronically signed by: Kenn Drake MD (11/14/2021 3:28 AM) [facility] DICTATED AND SIGNED BY: KENN DRAKE MD DATE: 11/14/21324 CC: KENDELL STEWART MD; CRISS WALLS MD ~ (KENDELL STEWART MD) Heart Score: C/O Chest Pain: N/A Risk Factors: Risk Factors: DM, Current or recent (<one month) smoker, HTN, HLP, family history of CAD, obesity. Risk Scores: Score 0 - 3: 2.5% MACE over next 6 weeks - Discharge Home Score 4 - 6: 20.3% MACE over next 6 weeks - Admit for Clinical Observation Score 7 - 10: 72.7% MACE over next 6 weeks - Early Invasive Strategies (KENDELL STEWART MD) Course & Med Decision Making: Course & Med Decision Making Pertinent Labs and Imaging studies reviewed. (See chart for details) See PAT exam. Endorsed to Dr. Mclean at shift change. Awaiting PCR Covid at shift change for placement. Impression: 1. Hallucinations- chronic- acute exacerbation tonight 2. Anxiety 3. Depression- 'SAD" 4. Schizophrenia 5. Microcytic hypochromic anemia Hgb 7.5, HCV 58, HC 16 6. Constipation 7. Msoae-Iydjd-Iqnvc Dz 8. Chronic GI bleeding AV and Mucosal Bleeding from Hvcrv-Nifba-Wwqdb 9. Suicidal ideation [] (KENDELL STEWART MD) Course & Med Decision Making The patient has changed his mind that he would prefer not to go to a psychiatric facility. He would like to go home. He has been reevaluated by the behavioral health team and they believe he is safe to discharge home. He is stable for discharge at this time. (DONTAE MCLEAN DO) Dragon Disclaimer: Dragon Disclaimer: This electronic medical record was generated, in whole or in part, using a voice recognition dictation system. (KENDELL STEWART MD) Departure Departure: Impression: Primary Impression: Auditory hallucinations Disposition: HOME / SELF CARE / HOMELESS Condition: STABLE Referrals: CRISS WALLS MD (PCP) Patient Instructions: Hallucinations and Delusions Dragon Disclaimer This chart was dictated in whole or in part using Voice Recognition software in a busy, high-work load, and often noisy Emergency Department environment. It may contain unintended and wholly unrecognized errors or omissions. (KENDELL STEWART MD) Dragon Disclaimer This chart was dictated in whole or in part using Voice Recognition software in a busy, high-work load, and often noisy Emergency Department environment. It may contain unintended and wholly unrecognized errors or omissions. (KENDELL STEWART MD) KENDELL STEWART MD November 14, 2021 01:56 DONTAE MCLEAN DO November 14, 2021 11:08
[2021-11-14 02:00] VITALS: BP 118/55
[2021-11-14 03:18] LABS: BASO # 0.1 x10^3/uL (0.0-0.2); BASO % 2 % (0-3); EOS # 0.4 x10^3/uL (0.0-0.7); EOS % 6 % (0-3); HEMATOCRIT 27.8 % (39.0-53.0); HEMOGLOBIN 7.5 g/dL (13.0-17.5); LYMPH # 1.7 x10^3/uL (1.0-4.8); LYMPH % 28 % (24-48); MEAN CORPUSCULAR HEMOGLOBIN 16 pg (25-35); MEAN CORPUSCULAR HGB CONC 27 g/dL (31-37); MEAN CORPUSCULAR VOLUME 58 fL (79-100); MONO # 0.3 x10^3/uL (0.0-1.1); MONO % 5 % (0-9); NEUT # 3.5 x10^3uL (1.8-7.7); NEUT % 59 % (31-73); PLATELET COUNT 493 x10^3/uL (140-400); RED BLOOD COUNT 4.78 x10^6/uL (4.30-5.70)
[2021-11-14 03:26] LABS: CALCIUM 8.6 mg/dL (8.5-10.1); GFR 77.9; POTASSIUM 4.1 mmol/L (3.5-5.1)
[2021-11-14] MEDS ORDERED: MAGNESIUM HYDROXIDE 2,400 MG/30 ML ORAL.SUSP. PO ONE ×2 (03:30→04:00)
[2021-11-14] MEDS ORDERED: IV RINGERS SOLUTION,LACTATED 1,000 ML IV SCH (03:30)
--- NOTE | 2021-11-14 03:30 | RAD ---
ACUTE ABDOMEN SERIES History: Chest and abdomen pain. Comparison: AP chest September 24, 2021. Findings: Frontal chest and supine and upright views of the abdomen. Cardiomediastinal silhouette is normal. There is no pleural effusion or pneumothorax. The lungs are clear. No pneumoperitoneum is identified. Air distends the stomach. No dilated air-filled loops of small bow el are seen. There is moderate colon stool volume. Bowel gas pattern is nonobstructive. No obvious organomegaly. Bones unremarkable. IMPRESSION: 1. No acute cardiopulmonary process. 2. Nonobstructive bowel gas pattern. 3. Moderate colon stool volume suggests constipation. Electronically signed by: Kenn Drake MD (11/14/2021 3:28 AM) [facility]
[2021-11-14 03:39] LABS: ALBUMIN 3.7 g/dL (3.4-5.0); DIRECT BILIRUBIN 0.2 mg/dL (0.0-0.2); MAGNESIUM 2.1 mg/dL (1.8-2.4); TOTAL BILIRUBIN 0.6 mg/dL (0.2-1.0); TOTAL PROTEIN 6.5 g/dL (6.4-8.2)
[2021-11-14 03:54] LABS: BARBITURATES NEG (NEG); BENZODIAZEPINES NEG (NEG); CANNABINOIDS NEG (NEG); COCAINE NEG (NEG); METHADONE NEG (NEG); OPIATES NEG (NEG); PHENCYCLIDINE NEG (NEG)
[2021-11-14 03:58] LABS: % LYMPHS 25 % (24-48); % MONOS 2 % (0-10)
[2021-11-14 03:59] LABS: % EOS 5 % (0-5); % SEGS 68 % (35-66); PLT ESTIMATE INCREASED (ADEQUATE)
[2021-11-14 04:00] LABS: ANISOCYTOSIS MARKED; MICROCYTOSIS MOD; OVALOCYTES MOD; STOMATOCYTES OCC; TARGET CELLS FEW
[2021-11-14 04:01] LABS: HYPOCHROMIA MOD
[2021-11-14 04:05] LABS: AMPHETAMINE/METHAMPHETAMINE NEG (NEG)
[2021-11-14 04:11] LABS: BACTERIA,URINE FEW /HPF (0-FEW); CLARITY,URINE CLEAR; COLOR,URINE YELLOW; GLUCOSE,URINE NEG (NEG); NITRITE,URINE NEG (NEG); RBC,URINE 0 /HPF (0-2); SQUAMOUS EPITHELIAL CELL,UR FEW /LPF; UROBILINOGEN,URINE 0.2 mg/dL (0.2 mg/dL); WBC,URINE OCC /HPF (0-4)
[2021-11-14 04:41] LABS: INFLUENZA A PATIENT NEGATIVE (NEGATIVE); INFLUENZA B PATIENT NEGATIVE (NEGATIVE)
--- NOTE | 2021-11-14 06:30 | EKG ---
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
== END 2021-11-14 11:13 | disposition home or self-care (01) ==
LOC: ER 01:48
DX: K92.2 Gastrointestinal hemorrhage, unspecified (principal); R45.851 Suicidal ideations; R44.0 Auditory hallucinations; F41.9 Anxiety disorder, unspecified; F32.9 Major depressive disorder, single episode, unspecified; F20.9 Schizophrenia, unspecified; D50.9 Iron deficiency anemia, unspecified; K59.00 Constipation, unspecified; I78.0 Hereditary hemorrhagic telangiectasia; Z20.822 Contact with and (suspected) exposure to COVID-19; Z88.6 Allergy status to analgesic agent
CPT/HCPCS: 36415; 74022; 80048; 80076; 80307; 81001; 82550; 83690; 83735; 83880; 84484; 85007; 85025; 87428; 93005; 99285; C9803; U0003

== ENCOUNTER 2021-11-16 20:00 | Emergency (ER) | payer OTHER ==
[~2021-11-16] VITALS: Ht 180.3 cm; Wt 65.8 kg
--- NOTE | 2021-11-16 20:03 | PHYS DOC ---
Past History Past Medical History: Anxiety, Depression, Schizophrenia Additional Past Medical Histor: Raynauds;Ednso-Dxvfl-Gofsd Past Surgical History: Tonsillectomy, Other Additional Past Surgical Histo: duodenal surgery; hernia repair Smoking: Non-smoker Alcohol Use: None Drug Use: None General Adult HPI: HPI: ".. I spit up a spot of blood.. it was red... but I got weak right afterwards.. the older voice told me to come in.. the two younger voices .. just made fun of me.. ".. " I am not as sad .. as I was the last time I seen you... " Patient is a 56 year old male who presents with above hx and complaints spiting of up some bright red blood. Patient denies any tarry stools. Patient denies any trauma. Patient states he has been picking at his scalp wound and that has been bleeding a little.. Patient states the voices told him to come in. Reports the older lady told him to come in and get a Coke and a sandwich. Younger voices were just laughing and making fun of him. Patient is well-known to the emergency department for his schizophrenia and auditory hallucinations. Patient has not follow-up at the counseling center as planned on previous discharge. Patient long history of noncompliance with medical regimens especially treatment every schizophrenia. Patient has long history of AV malformations, Puhop-Wozbu-Ubpak, anemia, bronchitis, depression, DVTs, epistaxis, constipation, Raynaud's, duodenal ulcer surgery,. Patient has not kept any visits with Dr. Power because of his delusions and hallucinations tell him not to go. Patient does have a history of anorexia and generalized weakness. Patient states his last Depo injection for his schizophrenia was in September. Patient states he is not having any suicidal or homicidal ideations today. Review of Systems: Review of Systems: Constitutional: Denies fever or chills Eyes: Denies change in visual acuity HENT: Denies nasal congestion or sore throat Respiratory: Denies cough or shortness of breath. Complaints of spitting up approximately 1 cm of bright red blood Cardiovascular: Denies chest pain or edema GI: Denies abdominal pain, nausea, vomiting, bloody stools or diarrhea : Denies dysuria Musculoskeletal: Denies back pain or joint pain Integument: Denies rash Neurologic: Denies headache, focal weakness or sensory changes Endocrine: Denies polyuria or polydipsia Lymphatic: Denies swollen glands Psychiatric: Denies depression or anxiety Family History: Family History: Noncontributory the presentation Current Medications: Current Meds: See nursing for home meds Allergies: Allergies: Allergies Coded Allergies Type Severity Reaction Last Updated Verified aspirin Adverse Reaction Intermediate bleeding 11/14/21 Yes Physical Exam: PE: Constitutional: no acute distress, non-toxic appearance. [] HENT: Normocephalic, atraumatic, bilateral external ears normal, oropharynx moist, no oral exudates, nose normal. Couple sores on his head that he has been picking at.. Lip lesions. Eyes: PERRLA, EOMI, conjunctiva pale, no discharge. [] Neck: Normal range of motion, no tenderness, supple, no stridor. [] Cardiovascular:Heart rate regular rhythm, no murmur [] Lungs & Thorax: Bilateral breath sounds equal at the apex on auscultation [] Abdomen: Bowel sounds normal, soft, no tenderness, no masses, no pulsatile masses. Old surgery scars Skin: Warm, dry, no erythema, no rash. [] Back: No tenderness, no CVA tenderness. [] Extremities: No tenderness, no cyanosis, no clubbing, ROM intact, no edema. [] Neurologic: Alert and oriented X 3, moves all extremities on request, has distal sensory, no focal deficits noted. [] Psychologic: Affect anxious, judgement normal, mood normal. Active auditory hallucinations. No visual hallucinations. No suicidal ideation. No homicidal ideations. Patient's states his mental state is better than his last visit to the emergency room. EKG: EKG: [] Radiology/Procedures: Radiology/Procedures: [] Heart Score: C/O Chest Pain: N/A Risk Factors: Risk Factors: DM, Current or recent (<one month) smoker, HTN, HLP, family history of CAD, obesity. Risk Scores: Score 0 - 3: 2.5% MACE over next 6 weeks - Discharge Home Score 4 - 6: 20.3% MACE over next 6 weeks - Admit for Clinical Observation Score 7 - 10: 72.7% MACE over next 6 weeks - Early Invasive Strategies Course & Med Decision Making: Course & Med Decision Making Pertinent Labs and Imaging studies reviewed. (See chart for details) Patient had no further episodes of bright red oral bleeding. No episodes of tarry stools. Patient requesting discharge. Impression: 1. Hallucinations 2. Anxiety 3. Depression 4. Schizophrenia 5. History of microcytic hypochromic anemia( hemoglobin last visit was 7.5 HCV 58 HC 16) 6. Constipation 7. 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 Raynaud's disease [] Dragon Disclaimer: Dragon Disclaimer: This electronic medical record was generated, in whole or in part, using a voice recognition dictation system. Departure Departure: Referrals: CRISS POWER MD (PCP) Eliazar Disclaimer This chart was dictated in whole or in part using Voice Recognition software in a busy, high-work load, and often noisy Emergency Department environment. It may contain unintended and wholly unrecognized errors or omissions. Dragon Disclaimer This chart was dictated in whole or in part using Voice Recognition software in a busy, high-work load, and often noisy Emergency Department environment. It may contain unintended and wholly unrecognized errors or omissions. KENDELL STEWART MD November 16, 2021 20:03
[2021-11-16 20:14] VITALS: BP 111/65
== END 2021-11-16 22:15 | disposition home or self-care (01) ==
LOC: ER 20:00
DX: R44.0 Auditory hallucinations (principal); F41.9 Anxiety disorder, unspecified; F32.9 Major depressive disorder, single episode, unspecified; F20.9 Schizophrenia, unspecified; K59.00 Constipation, unspecified; I78.0 Hereditary hemorrhagic telangiectasia; K13.0 Diseases of lips; Z86.2 Personal history of diseases of the blood and blood-forming organs and certain disorders involving the immune mechanism; Z88.6 Allergy status to analgesic agent
CPT/HCPCS: 99281

== ENCOUNTER 2021-11-19 19:30 | Emergency (ER) | payer OTHER ==
[~2021-11-19] VITALS: Ht 180.3 cm; Wt 65.8 kg
[2021-11-19 20:53] VITALS: BP 113/64
--- NOTE | 2021-11-19 21:37 | PHYS DOC ---
Past History Past Medical History: Anxiety, Depression, Schizophrenia Additional Past Medical Histor: Raynauds;Mzrns-Mdbvo-Jtabg Past Surgical History: Tonsillectomy, Other Additional Past Surgical Histo: duodenal surgery; hernia repair Smoking: Non-smoker Alcohol Use: None Drug Use: None General Adult EDM: Chief Complaint: LOWER EXT PAIN HPI: HPI: Patient is a 56-year-old male who presents with bilateral leg soreness due to walking all day. Patient has been seen in this ER multiple times for same complaints. No swelling to legs noted. Denies needing anything for pain. Patient's requesting a meal tray. History of anxiety, depression, leroy izophrenia. Review of Systems: Review of Systems: ROS At least 10 ROS systems have been reviewed and are negative except as documented in the HPI. General: Negative except as outlined in HPI above. Skin: Negative except as outlined in HPI above. HEENT: Negative except as outlined in HPI above. Neck: Negative except as outlined in HPI above. Respiratory: Negative except as outlined in HPI above.. Cardiovascular: Negative except as outlined in HPI above. Abdomen: Negative except as outlined in HPI above. : Negative except as outlined in HPI above. Back/MSK: Negative except as outlined in HPI above. Neuro: Negative except as outlined in HPI above. Psych: Negative except as outlined in HPI above. Allergies: Allergies: Allergies Coded Allergies Type Severity Reaction Last Updated Verified aspirin Adverse Reaction Intermediate bleeding 11/14/21 Yes Physical Exam: PE: Constitutional: Well developed, well nourished, no acute distress, non-toxic appearance. [] HENT: Normocephalic, atraumatic, bilateral external ears normal, oropharynx moist, no oral exudates, nose normal. [] Eyes: PERRLA, EOMI, conjunctiva normal, no discharge. [] Neck: Normal range of motion, no tenderness, supple, no stridor. [] Cardiovascular:Heart rate regular rhythm, no murmur [] Lungs & Thorax: Bilateral breath sounds clear to auscultation [] Abdomen: Bowel sounds normal, soft, no tenderness, no masses, no pulsatile masses. [] Skin: Warm, dry, no erythema, no rash. [] Back: No tenderness, no CVA tenderness. [] Extremities: Bilateral lower leg tenderness, ROM intact, no edema. [] Neurologic: Alert and oriented X 3, normal motor function, normal sensory function, no focal deficits noted. [] Psychologic: Affect normal, judgement normal, mood normal. [] Current Patient Data: Vital Signs: Vital Signs Date Time Temp Pulse Resp B/P (MAP) Pulse Ox O2 Delivery O2 Flow Rate FiO2 11/19/21 20:53 98.0 66 18 113/64 (80) 99 Room Air EKG: EKG: [] Radiology/Procedures: Radiology/Procedures: [] Heart Score: C/O Chest Pain: No Risk Factors: Risk Factors: DM, Current or recent (<one month) smoker, HTN, HLP, family history of CAD, obesity. Risk Scores: Score 0 - 3: 2.5% MACE over next 6 weeks - Discharge Home Score 4 - 6: 20.3% MACE over next 6 weeks - Admit for Clinical Observation Score 7 - 10: 72.7% MACE over next 6 weeks - Early Invasive Strategies Course & Med Decision Making: Course & Med Decision Making Pertinent Labs and Imaging studies reviewed. (See chart for details) [] 56-year male presents with bilateral, leg soreness due to walking around town all day. Patient has been seen multiple times for same complaint. Patient is requesting a meal tray. Denies needing pain medication or any other complaints. After patient had a meal tray, patient states that his legs feel much better and he is ready to be discharged home. Eliazar Disclaimer: Eliazar Disclaimer: This electronic medical record was generated, in whole or in part, using a voice recognition dictation system. Departure Departure: Impression: Primary Impression: Bilateral leg pain Disposition: HOME / SELF CARE / HOMELESS Condition: STABLE Referrals: CRISS POWER MD (PCP) Patient Instructions: Leg Cramps Additional Instructions: EMERGENCY DEPARTMENT GENERAL DISCHARGE INSTRUCTIONS Thank you for coming to [facility] (ED) today and trusting us with you care. We trust that you had a positivie experience in our Emergency Department. If you wish to speak to the department management, you may call the director at . YOUR FOLLOW UP INSTRUCTIONS ARE FOLLOWS: 1. Do you have a private Doctor? If you do not have a private doctor, please ask for a resource list of physicians or clinics that may be able to assist you with follow up care. 2. The Emergency Physician has interpreted your x-rays. The X-Ray specialist will also review them. If there is a change in the findings, you will be notified in 48 hours when at all possible. 3. A lab test or culture has been done, your results will be reviewed and you will be notified if you need a change in treatment. ADDITIONAL INSTRUCTIONS AND INFORMATION: 1. Your care today has been supervised by a physician who is specially trained in emergency care. Many problems require more than one evaluation for a complete diagnosis and treatment. We recommend that you schedule your follow up appointment as recommended to ensure complete treatment of you illness or injury. If you are unable to obtain follow up care and continue to have a problem, or if your condition worsens, we recommend that you return to the ED. 2. We are not able to safely determine your condition over the phone nor are we able to give sound medical advice over the phone. For these safety reasons, if you call for medical advice we will ask you to come to the ED for further evaluation. 3. If you have any questions regarding these discharge instructions please call the ED at [phone]. SAFETY INFORMATION: In the interest of safety, wellness, and injury prevention; we encourage you to wear your sealbelt, if you smoke; quite smoking, and we encourage family to use a protective helmet for bicycling and other sporting events that present an increased risk for head injury. IF YOUR SYMPTOMS WORSEN OR NEW SYMPTOMS DEVELOP, OR YOU HAVE CONCERNS ABOUT YOUR CONDITION; OR IF YOUR CONDITION WORSENS WHILE YOU ARE WAITING FOR YOUR FOLLOW UP APPOINTMENT; EITHER CONTACT YOUR PRIMARY CARE DOCTOR, THE PHYSICIAN WHOSE NAME AND NUMBER YOU WERE GIVEN, OR RETURN TO THE ED IMMEDIATELY. NIRMAL BRAGA APRN November 19, 2021 21:37
== END 2021-11-19 21:55 | disposition home or self-care (01) ==
LOC: ER 19:30
DX: M79.605 Pain in left leg (principal); M79.604 Pain in right leg; Z90.89 Acquired absence of other organs
CPT/HCPCS: 99281

== ENCOUNTER 2021-11-23 01:37 | Emergency (ER) | payer OTHER ==
[~2021-11-23] VITALS: Ht 180.3 cm; Wt 65.8 kg
--- NOTE | 2021-11-23 02:12 | PHYS DOC ---
Past History Past Medical History: Anxiety, Depression, Schizophrenia Additional Past Medical Histor: Raynauds;Yfrzu-Qhskp-Fhxzd Past Surgical History: Tonsillectomy, Other Additional Past Surgical Histo: duodenal surgery; hernia repair Smoking: Non-smoker Alcohol Use: None Drug Use: None General Adult HPI: HPI: "...I. am have thoughts of killing people.. they are all making fun of me.. they are making too much Noise,,, banging doors .. Threatening,, .. " Patient is a 56 year old male who presents with above hx and thoughts of homicidal ideation. .Pt. does not have any plans on how to kill people in the apartment where he lives.. Patient is well-known to the emergency department for frequent ED evaluations for various complaints primarily psychosis based. Patient has a long history of schizoaffective disorder with auditory hallucinations. 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 Patient has history of chronic anemia, bronchitis, depression, DVTs, duodenal ulcer surgery, and chronic noncompliance. Patient reportedly did get his monthly injection of Abilify at the [facility]. Patient does have a follow-up with his behavioral counselor in his apartment on Friday. Patient history of chronic schizophrenia with hallucinations that usually direct him what to do. Patient currently assigned to Dr. Power as a primary but does not keep follow-ups. He has been evaluated previously for anorexia secondary to the voices telling him not to eat. Patient last hemoglobin per our ED was 7.5. Did not meet transfusion level by hospital policy. Patient does not smoke. Patient not do alcohol. Does not use illicit drugs. Review of Systems: Review of Systems: Constitutional: Denies fever or chills Eyes: Denies change in visual acuity HENT: Denies nasal congestion or sore throat Respiratory: Denies cough or shortness of breath Cardiovascular: Denies chest pain or edema GI: Denies abdominal pain, nausea, vomiting, bloody stools or diarrhea : Denies dysuria Musculoskeletal: Denies back pain or joint pain Integument: Denies rash Neurologic: Denies headache, focal weakness or sensory changes Endocrine: Denies polyuria or polydipsia Lymphatic: Denies swollen glands Psychiatric: Complains of depression, anxiety and homicidal ideation. Given complains of 3 voices telling him what to do. Family History: Family History: Noncontributory to presentation Current Medications: Current Meds: See nursing for home meds Allergies: Allergies: Allergies Coded Allergies Type Severity Reaction Last Updated Verified aspirin Adverse Reaction Intermediate bleeding 11/14/21 Yes Physical Exam: PE: Constitutional: Moderate acute emotional distress, non-toxic appearance. [] HENT: Normocephalic, atraumatic, bilateral external ears normal, oropharynx moist, no oral exudates, nose normal. Oral lip lesions Eyes: PERRLA, EOMI, conjunctiva pale, no discharge. [] Neck: Normal range of motion, no tenderness, supple, no stridor. [] Cardiovascular tachycardia:Heart rate regular rhythm, no murmur [] Lungs & Thorax: Bilateral breath sounds equal at apex with auscultation [] Abdomen: Bowel sounds normal, soft, no tenderness, no masses, no pulsatile masses. Old surgery scars. No rebound. Skin: Warm, dry, no erythema, no rash. [] Back: No tenderness, no CVA tenderness. [] Extremities: No tenderness, no cyanosis, no clubbing, ROM intact, no edema. No cording appreciated Neurologic: Alert and oriented X 3, moves all extremities on request, has distal sensory, no focal deficits noted. [] Psychologic: Affect anxious, judgement normal, mood depressed. Reports auditory hallucinations EKG: EKG: My interpretation EKG shows a sinus rhythm at 83 bpm. No acute morphology. Does have some nonspecific T wave changes. Similar to prior EKGs. Time of EKG is 229 hours [] My interpretation of second EKG shows a sinus rhythm at 80 bpm. No acute morphology. No acute interval change. Time of second EKG is 436 hours Radiology/Procedures: Radiology/Procedures: [] Heart Score: C/O Chest Pain: N/A Risk Factors: Risk Factors: DM, Current or recent (<one month) smoker, HTN, HLP, family history of CAD, obesity. Risk Scores: Score 0 - 3: 2.5% MACE over next 6 weeks - Discharge Home Score 4 - 6: 20.3% MACE over next 6 weeks - Admit for Clinical Observation Score 7 - 10: 72.7% MACE over next 6 weeks - Early Invasive Strategies Course & Med Decision Making: Course & Med Decision Making Pertinent Labs and Imaging studies reviewed. (See chart for details) See PAT evaluation Impression: 1. Homicidal ideation-with no plan 2. Schizophrenia 3. Hallucinations-chronic 4. Lavelle Kern Rendu disease 5. History of anemia chronic hemoglobin 7.1 6. History of Raynaud's 7. History of bronchitis 8. History of depression 9. History of duodenal surgery 10. History of constipation 11. History of GI bleeding secondary to Tfvhp-Ydieh-Tszoz 12. Hx. of Anxiety [] Dragon Disclaimer: Dragcindy Disclaimer: This electronic medical record was generated, in whole or in part, using a voice recognition dictation system. Departure Departure: Referrals: CRISS POWER MD (PCP) Eliazar Disclaimer This chart was dictated in whole or in part using Voice Recognition software in a busy, high-work load, and often noisy Emergency Department environment. It may contain unintended and wholly unrecognized errors or omissions. KENDELL STEWART MD November 23, 2021 02:12
[2021-11-23] MEDS ORDERED: IV RINGERS SOLUTION,LACTATED 1,000 ML IV SCH (02:15)
[2021-11-23 03:37] LABS: BASO # 0.1 x10^3/uL (0.0-0.2); BASO % 1 % (0-3); EOS # 0.2 x10^3/uL (0.0-0.7); EOS % 3 % (0-3); HEMATOCRIT 26.3 % (39.0-53.0); HEMOGLOBIN 7.1 g/dL (13.0-17.5); LYMPH # 1.4 x10^3/uL (1.0-4.8); LYMPH % 19 % (24-48); MEAN CORPUSCULAR HEMOGLOBIN 16 pg (25-35); MEAN CORPUSCULAR HGB CONC 27 g/dL (31-37); MEAN CORPUSCULAR VOLUME 59 fL (79-100); MONO # 0.4 x10^3/uL (0.0-1.1); MONO % 5 % (0-9); NEUT # 5.2 x10^3uL (1.8-7.7); NEUT % 72 % (31-73); PLATELET COUNT 447 x10^3/uL (140-400); RED BLOOD COUNT 4.49 x10^6/uL (4.30-5.70); RED CELL DISTRIBUTION WIDTH 22.3 % (11.5-14.5); WHITE BLOOD COUNT 7.2 x10^3/uL (4.0-11.0)
[2021-11-23 03:49] LABS: CALCIUM 8.9 mg/dL (8.5-10.1); CREATININE 1.1 mg/dL (0.7-1.3); GFR 69.8; POTASSIUM 4.2 mmol/L (3.5-5.1)
[2021-11-23 03:57] LABS: BARBITURATES NEG (NEG); BENZODIAZEPINES NEG (NEG); CANNABINOIDS NEG (NEG); COCAINE NEG (NEG); METHADONE NEG (NEG); OPIATES NEG (NEG); PHENCYCLIDINE NEG (NEG)
[2021-11-23 04:02] LABS: ALBUMIN 3.7 g/dL (3.4-5.0); DIRECT BILIRUBIN 0.1 mg/dL (0.0-0.2); MAGNESIUM 2.1 mg/dL (1.8-2.4); TOTAL BILIRUBIN 0.5 mg/dL (0.2-1.0); TOTAL PROTEIN 6.5 g/dL (6.4-8.2)
[2021-11-23 04:06] LABS: BACTERIA,URINE 0 /HPF (0-FEW); CLARITY,URINE CLEAR; COLOR,URINE YELLOW; GLUCOSE,URINE 100 mg/dL (NEG); NITRITE,URINE NEG (NEG); RBC,URINE 0 /HPF (0-2); SQUAMOUS EPITHELIAL CELL,UR OCC /LPF; UROBILINOGEN,URINE 0.2 mg/dL (0.2 mg/dL); WBC,URINE OCC /HPF (0-4)
[2021-11-23 04:25] LABS: AMPHETAMINE/METHAMPHETAMINE NEG (NEG)
[2021-11-23 05:27] LABS: PLT ESTIMATE INCREASED (ADEQUATE)
[2021-11-23 05:29] LABS: HYPOCHROMIA MOD; MICROCYTOSIS MOD
[2021-11-23 05:31] LABS: ANISOCYTOSIS MOD
[2021-11-23 05:50] VITALS: BP 120/67
== END 2021-11-23 05:50 | disposition home or self-care (01) ==
LOC: ER 01:37
DX: R45.850 Homicidal ideations (principal); F20.9 Schizophrenia, unspecified; R44.0 Auditory hallucinations; F32.9 Major depressive disorder, single episode, unspecified; F41.9 Anxiety disorder, unspecified; I78.0 Hereditary hemorrhagic telangiectasia; Z86.2 Personal history of diseases of the blood and blood-forming organs and certain disorders involving the immune mechanism; Z88.6 Allergy status to analgesic agent
CPT/HCPCS: 36415; 80048; 80076; 80307; 81001; 82550; 83690; 83735; 83880; 84443; 84484; 85025; 85610; 86850; 86900; 86901; 93005; 96360; 99285; J7120; 99284

== ENCOUNTER 2021-11-27 19:48 | Emergency (ER) | payer OTHER ==
[~2021-11-27] VITALS: Ht 180.3 cm; Wt 65.8 kg
--- NOTE | 2021-11-27 19:54 | PHYS DOC ---
Past History Past Medical History: Anxiety, Depression, Schizophrenia Additional Past Medical Histor: Raynauds;Ivmmf-Zaruo-Zgqxq Past Medical History Auditory hallucinations-chronic Past Surgical History: Tonsillectomy, Other Additional Past Surgical Histo: duodenal surgery; hernia repair Smoking: Non-smoker Alcohol Use: None Drug Use: None General Adult EDM: Chief Complaint: BACK PAIN OR INJURY HPI: HPI: " The voices told me to come in and get checked out.. They are being a little bit rough today... Can I have a sandwich.. " Patient is a 56 year old male who presents with above hx and complaints. Pt. stated the voices told him to come into the ED and get checked out. Patient well-known to the ED for frequent visits for multitude of complaints and has schizophrenia auditory hallucinations. Patient past medical history of schizophrenia, chronic anemia, Vfqws-Kidyl-Xbckp, Raynaud's syndrome,. Has had history of duodenal surgery and hernia repair. Patient markedly noncompliant with getting his antipsychotic medications Abilify. States he did get it this month. Patient denies any specific history of trauma today. Localized pain primarily in lumbar sacral area. DTRs are +2. Patient is amatory without problems. Patient does not drink alcohol or use drugs. Patient is non-smoker. Patient denies any trauma. Patient denies any problems with dysuria. Patient denies any fever or chills. Patient denies any history of cancer. Patient denies any problems with defecation. Patient denies any history immunosuppression. Review of Systems: Review of Systems: Constitutional: Denies fever or chills Eyes: Denies change in visual acuity HENT: Denies nasal congestion or sore throat Respiratory: Denies cough or shortness of breath Cardiovascular: Denies chest pain or edema GI: Denies abdominal pain, nausea, vomiting, bloody stools or diarrhea : Denies dysuria Musculoskeletal: Complains of lumbar sacral back pain Integument: Denies rash Neurologic: Denies headache, focal weakness or sensory changes Endocrine: Denies polyuria or polydipsia Lymphatic: Denies swollen glands Psychiatric: Denies depression or anxiety Family History: Family History: Noncontributory Current Medications: Current Meds: See nursing for home meds Allergies: Allergies: Allergies Coded Allergies Type Severity Reaction Last Updated Verified aspirin Adverse Reaction Intermediate bleeding 5/11/22 Yes Physical Exam: PE: Constitutional: no acute distress, non-toxic appearance. [] HENT: Normocephalic, atraumatic, bilateral external ears normal, oropharynx moist, no oral exudates, nose normal. [] Eyes: PERRLA, EOMI, conjunctiva pale, no discharge. [] Neck: Normal range of motion, no tenderness, supple, no stridor. [] Cardiovascular:Heart rate regular rhythm, no murmur [] Lungs & Thorax: Bilateral breath sounds equal apex on auscultation [] Abdomen: Bowel sounds normal, soft, no tenderness, no masses, no pulsatile masses. Old surgery scars Skin: Warm, dry, no erythema, no rash. [] Back: Sacral tenderness, no CVA tenderness. [] Extremities: No tenderness, no cyanosis, no clubbing, ROM intact, no edema. [] Neurologic: Alert and oriented X 3, normal motor function, normal sensory function, no focal deficits noted. [] DTRs +2 patella and brachial Psychologic: Affect, anxious judgement normal, mood normal. [] Reports auditory hallucinations.-Chronic EKG: EKG: [] Radiology/Procedures: Radiology/Procedures: [] Heart Score: C/O Chest Pain: N/A Risk Factors: Risk Factors: DM, Current or recent (<one month) smoker, HTN, HLP, family history of CAD, obesity. Risk Scores: Score 0 - 3: 2.5% MACE over next 6 weeks - Discharge Home Score 4 - 6: 20.3% MACE over next 6 weeks - Admit for Clinical Observation Score 7 - 10: 72.7% MACE over next 6 weeks - Early Invasive Strategies Course & Med Decision Making: Course & Med Decision Making Pertinent Labs and Imaging studies reviewed. (See chart for details) Tylenol as needed for pain. Ice packs as needed for pain. Follow-up with Dr. Power. Follow-up with counseling center. Pt. with out symptoms at time discharge. Still hearing voices Impression: 1. Lumbar sacral back pain 2. Schizoaffective disorder 3. Hallucinations-chronic 4. History of noncompliance 5. History of Lavelle Kern Rendu 6. History of anemia [] Dragon Disclaimer: Dragon Disclaimer: This electronic medical record was generated, in whole or in part, using a voice recognition dictation system. Departure Departure: Referrals: CRISS POWER MD (PCP) Attending Signature Attending Signature I have participated in the care of this patient and I have reviewed and agree with all pertinent clinical information above including history, exam, and recommendations. KENDELL STEWART MD November 27, 2021 19:54
[2021-11-27 20:00] VITALS: BP 110/48
[2021-11-27] MEDS ORDERED: ACETAMINOPHEN 500 MG TABLET PO ONE (20:15)
== END 2021-11-27 21:55 | disposition home or self-care (01) ==
LOC: ER 19:48
DX: F25.9 Schizoaffective disorder, unspecified (principal); M54.59 Other low back pain; M53.3 Sacrococcygeal disorders, not elsewhere classified; I78.0 Hereditary hemorrhagic telangiectasia; F41.9 Anxiety disorder, unspecified; F32.9 Major depressive disorder, single episode, unspecified; Z86.2 Personal history of diseases of the blood and blood-forming organs and certain disorders involving the immune mechanism; Z88.6 Allergy status to analgesic agent
CPT/HCPCS: 99282

== ENCOUNTER → 2021-11-27 | Outpatient (CLI) | payer OTHER ==
[2021-11-23 05:50] VITALS: BP 120/67
[2021-11-27 13:37] LABS: BASO % 0 % (0-3); EOS # 0.1 x10^3/uL (0.0-0.7); EOS % 2 % (0-3); HEMATOCRIT 31.9 % (39.0-53.0); HEMOGLOBIN 8.5 g/dL (13.0-17.5); LYMPH # 0.5 x10^3/uL (1.0-4.8); LYMPH % 10 % (24-48); MEAN CORPUSCULAR HEMOGLOBIN 16 pg (25-35); MEAN CORPUSCULAR HGB CONC 27 g/dL (31-37); MEAN CORPUSCULAR VOLUME 60 fL (79-100); MONO # 0.2 x10^3/uL (0.0-1.1); MONO % 4 % (0-9); NEUT # 4.5 x10^3uL (1.8-7.7); NEUT % 84 % (31-73); PLATELET COUNT 507 x10^3/uL (140-400); RED BLOOD COUNT 5.33 x10^6/uL (4.30-5.70); RED CELL DISTRIBUTION WIDTH 22.2 % (11.5-14.5); WHITE BLOOD COUNT 5.4 x10^3/uL (4.0-11.0)
[2021-11-27 13:40] LABS: ALBUMIN 4.1 g/dL (3.4-5.0); ALBUMIN/GLOBULIN RATIO 1.1 (1.0-1.7); CALCIUM 8.9 mg/dL (8.5-10.1); GFR 77.9; POTASSIUM 4.5 mmol/L (3.5-5.1); TOTAL BILIRUBIN 0.7 mg/dL (0.2-1.0); TOTAL PROTEIN 7.7 g/dL (6.4-8.2)
[2021-11-27 16:14] LABS: % BANDS 1 % (0-9); % EOS 3 % (0-5); % LYMPHS 14 % (24-48); % MONOS 5 % (0-10); % SEGS 77 % (35-66); ANISOCYTOSIS MOD; HYPOCHROMIA MARKED; MICROCYTOSIS MARKED; OVALOCYTES MOD; PLT ESTIMATE INCREASED (ADEQUATE); POIKILOCYTOSIS MOD
[2021-11-27 16:16] LABS: TEAR DROP CELLS OCC
[2021-11-28 01:14] LABS: HEMOGLOBIN A1C 4.4 % (4.8-5.6)
[2021-11-28 19:15] LABS: CHOLESTEROL/HDL RATIO 2.3; FREE T4 0.76 ng/dL (0.76-1.46)
[2021-11-28 19:16] LABS: THYROID STIM HORMONE (TSH) 3.36 uIU/mL (0.358-3.740)
== END ==
LOC: LAB 11:16
PROVIDERS: ATTEND Clinical Nurse Specialist Psychiatric/Mental Health, Adult
DX: Z79.899 Other long term (current) drug therapy (principal)
CPT/HCPCS: 36415; 80053; 80061; 83036; 84146; 84439; 84443; 84481; 85007; 85025

== ENCOUNTER 2021-12-01 04:51 | Emergency (ER) | payer OTHER ==
[~2021-12-01] VITALS: Ht 180.3 cm; Wt 65.0 kg
--- NOTE | 2021-12-01 04:59 | PHYS DOC ---
Past History Past Medical History: Anxiety, Depression, Schizophrenia Additional Past Medical Histor: Raynauds;[id number]-[id number] Past Surgical History: Tonsillectomy, Other Additional Past Surgical Histo: duodenal surgery; hernia repair Smoking: Non-smoker Alcohol Use: None Drug Use: None Adult General HPI HPI Patient is a 56-year-old male with a past medical history of anxiety and depression who was comes frequently to the emergency department with various complaints usually ended up saying that he just wants something to eat and has a tenuous living circumstance sometimes being homeless. He presents to the emergency department today saying that his back hurts. Review of Systems Review of Systems Review of systems otherwise unremarkable except noted in HPI Allergies Allergies Allergies Coded Allergies Type Severity Reaction Last Updated Verified aspirin Adverse Reaction Intermediate bleeding 11/14/21 Yes Physical Exam Physical Exam Constitutional: Well developed, well nourished, no acute distress, non-toxic appearance. [] HENT: Normocephalic, atraumatic, bilateral external ears normal, oropharynx moist, no oral exudates, nose normal. [] Eyes: conjunctiva normal, no discharge. [] Neck: Normal range of motion, no tenderness, supple, no stridor. [] Cardiovascular:Heart rate regular rhythm, no murmur [] Lungs & Thorax: Bilateral breath sounds clear to auscultation [] Abdomen:soft, no tenderness, no masses, no pulsatile masses. [] Skin: Warm, dry, no erythema, no rash. [] Back: No midline tenderness throughout spine, no obvious deformities or bruising, no obvious spasms, range of motion intact Extremities: Neurovascular exam intact, no tenderness, no cyanosis, no clubbing, ROM intact, no edema. [] Neurologic: Alert and oriented X 3, normal motor function, normal sensory function, able to sit, stand and walk without issue, no focal deficits noted. [] Psychologic: Flat affect, judgement normal, mood normal. [] EKG EKG [] Radiology/Procedures Radiology/Procedures [] Heart Score C/O Chest Pain: No Risk Factors: Risk Factors: DM, Current or recent (<one month) smoker, HTN, HLP, family history of CAD, obesity. Risk Scores: Risk Factors: DM, Current or recent (<one month) smoker, HTN, HLP, family history of CAD, obesity. Course & Med Decision Making Course & Med Decision Making Patient is a 56-year-old male who presents with a chief complaint of my back hurts Vital signs . Physical exam noted above. Patient given medicines for pain. Given a meal Discussed findings with patient. Discussed management at home. Discussed some stretching Advised to follow-up soon as he can with his primary care physician. Gave return precautions to the ED Patient grateful, verbalized understanding and agreed with plan of discharge [] Dragon Disclaimer Dragon Disclaimer This electronic medical record was generated, in whole or in part, using a voice recognition dictation system. Departure Departure: Impression: Primary Impression: Back pain Disposition: HOME / SELF CARE / HOMELESS Condition: STABLE Referrals: CRISS POWER MD (PCP) Patient Instructions: Back Pain, Adult Additional Instructions: Thank you for coming into the emergency department tonight and allowing us to take care of you. Please read the attached information carefully go over things we discussed. You continue Tylenol 3 times a day, ibuprofen 3 times a day, [id number] lidocaine patches and ice packs as needed. Please also do the stretching we discussed. Please follow-up as soon as you can with your primary care physician update on your ED visit and set up a follow-up. Please come back with new or concerning symptoms as discussed. BENJIE MAN MD December 01, 2021 04:59
[2021-12-01] MEDS: ACETAMINOPHEN 500 MG TABLET PO ONE (05:15)
[2021-12-01] MEDS: diphenhydrAMINE HCL 25 MG CAPSULE PO ONE (05:15)
== END 2021-12-01 05:43 | disposition home or self-care (01) ==
LOC: ER 04:51
DX: M54.9 Dorsalgia, unspecified (principal); F41.9 Anxiety disorder, unspecified; F32.9 Major depressive disorder, single episode, unspecified; F20.9 Schizophrenia, unspecified; Z59.00 Homelessness unspecified; Z88.6 Allergy status to analgesic agent
CPT/HCPCS: 99283; Q0163

== ENCOUNTER 2021-12-03 19:59 | Emergency (ER) | payer OTHER ==
--- NOTE | 2021-12-03 20:47 | PHYS DOC ---
Past History Past Medical History: Anxiety, Depression, Schizophrenia Additional Past Medical Histor: Raynauds;[id number] Past Surgical History: Tonsillectomy, Other Additional Past Surgical Histo: duodenal surgery; hernia repair Smoking: Non-smoker Alcohol Use: None Drug Use: None Adult General HPI HPI Patient is a 56-year-old male with a past medical history of controlled schizophrenia, who goes to the [facility] and has a primary care physician who presents frequently to the emergency department for various complaints. Today he comes in initially stating that he has had suicidal ideations. States that he has no plan and does not really want to hurt himself but states that he has occasional thoughts of not wanting to be around. Upon further investigation, patient states that he is not really SI he just wants to come to the emergency department to get something to eat or drink. States that he does not really want to hurt himself, does not want any labs drawn or work-up done and does not want to be admitted to a psychiatric hospital or see a psychiatrist. Denies any homicidal ideation or hallucinations. States he is taking all of his medications as prescribed and just got his shot for schizophrenia 2 weeks ago. Review of Systems Review of Systems Review of systems otherwise unremarkable except noted in HPI Allergies Allergies Allergies Coded Allergies Type Severity Reaction Last Updated Verified aspirin Adverse Reaction Intermediate bleeding 11/14/21 Yes Physical Exam Physical Exam Constitutional: Well developed, well nourished, no acute distress, non-toxic appearance. [] HENT: Normocephalic, atraumatic, bilateral external ears normal, oropharynx moist, no oral exudates, nose normal. [] Eyes: PERRLA, EOMI, conjunctiva normal, no discharge. [] Neck: Normal range of motion, no tenderness, supple, no stridor. [] Cardiovascular:Heart rate regular rhythm, no murmur [] Lungs & Thorax: Bilateral breath sounds clear to auscultation [] Abdomen: Bowel sounds normal, soft, no tenderness, no masses, no pulsatile masses. [] Skin: Warm, dry, no erythema, no rash. [] Back: No tenderness, no CVA tenderness. [] Extremities: No tenderness, no cyanosis, no clubbing, ROM intact, no edema. [] Neurologic: Alert and oriented X 3, normal motor function, normal sensory function, able to sit, stand and walk without issue, no focal deficits noted. [] Psychologic: Flat affect, judgment abnormal, as he admits that the only reason he comes to the emergency department is to get something to drink and has not actually suicidal and is having no thoughts of this, is not homicidal or hallucinating,, mood normal. Offered full evaluation including lab work-up and consultation with our PAT team to get him some help, which he declined. [] EKG EKG [] Radiology/Procedures Radiology/Procedures [] Heart Score C/O Chest Pain: No Risk Factors: Risk Factors: DM, Current or recent (<one month) smoker, HTN, HLP, family history of CAD, obesity. Risk Scores: Risk Factors: DM, Current or recent (<one month) smoker, HTN, HLP, family history of CAD, obesity. Course & Med Decision Making Course & Med Decision Making Patient is a 56-year-old male who initially presented to the emergency department stating he was SI, but during interview stated that he is not suicidal, homicidal or hallucinating, and has no plan to hurt himself and does not actually want to but just comes to the emergency department so he can get some to eat and drink and then go home. Vital signs nonconcerning. Physical exam noted above. Patient given meal and something to drink. Discussed with patient that this is not appropriate to come into the emergency department with a false chief complaint just to get something to eat. Patient states he does have a place to live, has a primary care physician Dr. Armando Power and [facility] and has been. Patient appears clean, well-kept and in clean clothes. Advised to follow-up with primary care physician as soon as you can update on ED visit. [facility] with the [facility]. Given community resource packet with various resources including food assistance. Gave return precautions to the ED. Patient grateful, verbalized understanding and left on his own ability after eating not wanting any sort of work-up, denying SI, HI or hallucinations once again. [] Dragon Disclaimer Dragon Disclaimer This electronic medical record was generated, in whole or in part, using a voice recognition dictation system. Departure Departure: Impression: Primary Impression: Hunger Disposition: HOME / SELF CARE / HOMELESS Condition: STABLE Referrals: ARMANDO POWER MD (PCP) Additional Instructions: Thank you for coming into the emergency department tonight and allowing us to take care of you. It is very important that you follow-up with your primary care physician and your counselor at the [facility] soon as possible to update on your ED visit and set up follow-up appointment for soon as possible. You are given a community resource packet with various resources including food assistance. Please take advantage of this. As we discussed please try not to come into the emergency department with a chief complaint such as suicidal ideations if it is not true when you are here only to get food as you stated. Please come back to the emergency department immediately with any other new or concerning symptoms that we discussed. BENJIE MAN MD December 03, 2021 20:47
== END 2021-12-03 21:28 | disposition home or self-care (01) ==
LOC: ER 19:59
DX: T73.0XXA Starvation, initial encounter (principal); F41.9 Anxiety disorder, unspecified; F32.9 Major depressive disorder, single episode, unspecified; F20.9 Schizophrenia, unspecified; Z88.6 Allergy status to analgesic agent; X58.XXXA Exposure to other specified factors, initial encounter
CPT/HCPCS: 99281